=== PATIENT | female | born 1995 | race Caucasian/White ===

== ENCOUNTER 2019-01-18 04:44 | Inpatient (IN) | payer OTHER, SELFPAY ==
[2019-01-17 22:43] LABS: ROM Internal Control Test YES-OK TO RESULT pt. (Internal QC); ROM Patient Test Negative (Negative); Record Kit Lot#, ROM+ J8255
[2019-01-18 01:17] VITALS: BMI 34.0
[2019-01-18] MEDS: Nalbuphine 10 MG/ML Ampul IV (01:52)
[2019-01-18 04:43] LABS: ROM Internal Control Test YES-OK TO RESULT pt. (Internal QC); ROM Patient Test POSITIVE (Negative); Record Kit Lot#, ROM+ J8255
[2019-01-18] MEDS: Lactated Ringers 500 ML 999 ML IV ×3 (05:00→17:45)
[2019-01-18 05:35] LABS: Absolute Neutrophil Count 10.9 X10^3/uL (2.0-7.7); Basophil# 0.03 X10^3/uL; Basophil% 0.2 % (0-1); Eosinophil# 0.02 X10^3/uL; Eosinophils% 0.2 % (0-5); Hematocrit 38.5 % (37-47); Hemoglobin 12.6 g/dL (12.0-15.0); Lymphocyte % 11.3 % (19-41); Mean Corp Hgb Conc 32.7 g/dL (32-36); Mean Corpuscular Hgb 30.1 pg (27.0-32.0); Mean Corpuscular Volume 91.9 fL (81-99); Mean Platelet Vol. 11.3 fl (6.2-12.0); Monocyte# 0.67 X10^3/uL; Monocyte% 5.1 % (0-10); NRBC Flagged by Analyzer 0 % (0-5); Neutrophil # 10.94 X10^3/uL (2.7-7.7); Neutrophil % 82.4 % (47-70); Platelet Count 261 K/mm3 (150-450); RBC Distribution Width CV 15.9 % (11.6-14.6); RBC Distribution Width SD 53.3 fl (35.1-43.9); Red Blood Count 4.19 M/mm3 (4.2-5.4); White Blood Count 13.3 K/mm3 (4.4-11.0)
[2019-01-18] MEDS: Lactated Ringers 1,000 ML 200 ML IV ×3 (06:15→16:12)
[2019-01-18] MEDS: fentaNYL-bupivacaine (epidural) 100 ML BAG EPIDURAL ×2 (07:21→11:31)
[2019-01-18] MEDS: Oxytocin 30 units/NS 500 ml 30 UNITS/500 ML IV.SOLN IV (08:17)
--- NOTE | 2019-01-18 12:31 | PCM.HP.OB ---
History Date of Admission: 01/18/19 Final BENJI: 01/12/19 Gestational age: 40 Weeks and 6 Days History of this : This is a 23 year-old, G [], P [], at 40 weeks gestational age. Allergies amoxicillin Allergy (Verified 01/17/19 22:10) Unknown Home Medications: Home Medications Prenatabs FA 1 tab PO DAILY 01/18/19 Smoking Status: Never smoker Number of Fetus(es): 1 NST - FHR Rate Baby A Baseline: 120 Variability:: Moderate Accelerations:: 15 x 15 Decelerations:: None NST Reactive:: Yes Uterine Activity:: Q2-3 minutes History Past Pregnancies: Past Pregnancies Delivery Date Name GA/Weeks Outcome Route Weight Gender Labor Length Anesthesia Delivery Location Provider FOB Labs: See [facility] H[facility]P Physical Exam General: Alert, Oriented x3 Abdomen: Soft, Non Tender, Non-Distended, Gravid Neurological: Cranial nerves II-XII grossly intact Estimated gestational size: Appropriate for gestational size Cervix Dilation (cm): 3 - AROM clear fluid Station: -2 Effacement (%): 90 Assessment/Plan This is a 23 year-old, G1, P0, at 40&6 weeks gestational age. Admit to L&D Augmentation with pitocin GBS negative EFW less than 4500g, patient with adequate pelvis Pain - epidural Routine care
[2019-01-18] MEDS: Oxytocin 30 units/NS 500 ml 30 UNITS/500 ML IV.SOLN 334 UNITS IV (19:29)
--- NOTE | 2019-01-18 19:48 | PCM.OPRPT ---
Vaginal Delivery Maternal Presentation: Active Labor, Spontaneous Rupture of Membranes Method of Induction: Pitocin - augmentation Amniotic Membrane Rupture Type: Spontaneous at home Amniotic Fluid Description: Clear - with terminal meconium Final BENJI: 01/12/19 Gestational age: 40 Weeks and 6 Days Date of Procedure: 01/18/19 Pre-Operative Diagnosis: Labor Post-Operative Diagnosis: Labor Surgery/ Procedure Performed: Spontaneous Vaginal Delivery Type of Anesthesia: Epidural Description of Procedure: Called to room when patient C/C/+3. She was prepped & draped in stirrups. She pushed to deliver head. head gently guided to allow delivery of anterior and posterior shoulders. No excess traction placed on head. Body delivered and infant placed on maternal abdomen. 3VC clamped and cut. taken to warmer with pediatric team present. Placenta delivered with gentle traction. Good uterine tone obtained. Presentation: LIZZETH Placental Delivery Description: Expressed Placenta Disposition: [facility] Cord Vessel Description: 3 Vessels Cord Entanglement: None Estimated Blood Loss: 300ml Infant A gender: Male - Jaxton (1 minute): 4 (5 minute): 8 Episiotomy Description: None Laceration: 1st degree - left vaginal - repaired with 3-0 vicryl Medications given after delivery: IV Pitocin Complications: None
[2019-01-18] MEDS: Methylergonovine 0.2 MG/ML Ampul IM (20:54)
[2019-01-18] MEDS: Ibuprofen 600 MG Tablet PO (21:10)
[2019-01-18] MEDS: Acetaminophen 500 MG Tablet 1000 MG PO (22:14)
[2019-01-18] MEDS: 0.9% Saline Lock 10 ML Syringe IV (22:14)
[2019-01-18 23:51] VITALS: BP 108/68; PULSE 79; RESP 16; TEMP 36.6
[2019-01-19 05:08] VITALS: BP 99/60; PULSE 84; RESP 16; TEMP 36.3
[2019-01-19] MEDS: Ibuprofen 600 MG Tablet PO ×2 (05:14→18:01)
--- NOTE | 2019-01-19 08:49 | PCM.PN.OB ---
Subjective: Pain well controlled, just passed 2 moderate clots. Average lochia before - Physical Exam General: Alert, Cooperative, No apparent distress HEENT: Normocephalic Abdomen: Soft, Non Tender, Distended - moderately Extremities: Edema - 1+ Psych/Mental Status: Normal Affect, Appropriate Vital Signs Temp Pulse Resp BP 97.4 F L 84 16 99/60 01/19/19 05:08 01/19/19 05:08 01/19/19 05:08 01/19/19 05:08 Oxygen Delivery Method Room Air Weight: 84.368 kg Body Mass Index (BMI) 34.0 Intake and Output for Last 24 Hours 01/17/19 01/18/19 01/19/19 23:59 23:59 23:59 Intake Total 6444.88 / 6444.88 500 / 500 Output Total 2400 / 2400 450 / 450 Balance 4044.88 / 4044.88 50 / 50 Medical Necessity - Tobacco Use Smoking Status: Never smoker Assessment/Plan PPD#1 s/p doing well fundus firm after passing clots, monitor bleeding working on likely home tomorrow
[2019-01-19 09:00] VITALS: BP 103/65; PULSE 72; RESP 18; TEMP 36.9
[2019-01-19] MEDS: oxyCODONE 5 MG Tablet PO ×2 (09:38→19:36)
--- NOTE | 2019-01-19 10:10 | NURSING ---
Pt passed 2 large clots, approx. 150cc in measuring cup. Dr. Murrieta here and aware of clots. We will continue to monitor.
[2019-01-19 11:50] VITALS: BP 108/65; PULSE 89; RESP 16; TEMP 36.6
[2019-01-19] MEDS: Acetaminophen 500 MG Tablet 1000 MG PO (15:40)
[2019-01-19 15:49] VITALS: BP 116/77; PULSE 88; RESP 16; TEMP 36.4
[2019-01-19 21:10] VITALS: PULSE 86; RESP 16; TEMP 36.8; O2SAT 97
[2019-01-20 02:10] VITALS: BP 113/74; PULSE 78; RESP 16; TEMP 36.8
[2019-01-20] MEDS: oxyCODONE 5 MG Tablet PO ×2 (02:15→10:45)
[2019-01-20 09:33] VITALS: BP 109/69; PULSE 93; RESP 16; TEMP 36.8; O2SAT 98
[2019-01-20] MEDS: Ibuprofen 600 MG Tablet PO (09:33)
[2019-01-20] MEDS: Senna/Docusate Sodium 1 Tablet PO (09:33)
--- NOTE | 2019-01-20 09:45 | PCM.PN.OB ---
Subjective: Pain well controlled, average lochia. - Physical Exam General: Alert, Cooperative Vital Signs Temp Pulse Resp BP Pulse Ox 98.3 F 93 16 109/69 98 01/20/19 09:33 01/20/19 09:33 01/20/19 09:33 01/20/19 09:33 01/20/19 09:33 Oxygen Delivery Method Room Air Weight: 84.368 kg Body Mass Index (BMI) 34.0 Intake and Output for Last 24 Hours 01/18/19 01/19/19 01/20/19 23:59 23:59 23:59 Intake Total 6444.88 / 6444.88 500 / 500 Output Total 2400 / 2400 1000 / 1000 Balance 4044.88 / 4044.88 -500 / -500 Medical Necessity - Tobacco Use Smoking Status: Never smoker Assessment/Plan PPD#2 doing well is doing well ready for d/c
--- NOTE | 2019-01-20 10:40 | DCINST_ITS ---
Discharge Diet: No Restrictions Discharge Activity: Return to Normal Activity, May not drive while taking narcotic pain medications., May Shower May resume sexual activity in: 4-6 weeks Additional Activity Instructions:: Nothing in the vagina for 4-6 weeks. You may return to work/school in 6 weeks. Call your doctor if your incision/area has: Continuous Slow Oozing, Sudden Increased Bleeding, Increased Pain/ Swelling, Increased Redness, Foul Smelling Discharge Additional Instructions: If you experience any of the following, contact your healthcare provider. * Bleeding that soaks a pad every hour for 2 hours * Fever 100.4 or higher * Unrelieved incision or abdominal pain * Swelling, redness, discharge or bleeding from your incision or episiotomy site * Your incision begins to separate * Problems urinating (including inability to urinate or burning while urinating). * Visual changes * Severe headache * Flu-like symptoms * Pain or redness in one of both of your breasts * Pain, warmth, tenderness or swelling in your legs, especially the calf area * Frequent nausea and vomiting * Symptoms of depression or anxiety If you experience any of the following, call 911 or go to the nearest Emergency Room. * Chest pain * Problems breathing * Seizure activity * Partial or complete paralysis of a body part, slurred speech, weakness or drooping of the face, or a sudden inability to walk or hold your balance Allergies/Adverse Reactions: Allergies amoxicillin Allergy (Verified 01/17/19 22:10) Unknown Medications to take at Discharge Prenatabs FA 1 tab PO DAILY 01/18/19 Ibuprofen [Motrin] 600 mg PO Q6H PRN #60 tab 01/20/19 The following prescriptions were given: Ibuprofen [Motrin] 600 mg PO Q6H PRN #60 tab PRN Reason: Pain Transmission Status: Received by [facility]/pharmacy #[id number] Please Follow Up With: Shine Neal - [phone] When: Call to make an appointment with your provider's office in 1-2 and 6 weeks or as needed Primary Care Physician: Care Physician,No Primary [Primary Care Provider] - Test Results: Test results from this visit will be discussed in further detail at your follow- up appointment, if applicable.
--- NOTE | 2019-01-20 10:40 | PCM.DCVAG ---
Discharge Diet: No Restrictions Discharge Activity: Return to Normal Activity, May not drive while taking narcotic pain medications., May Shower May resume sexual activity in: 4-6 weeks Additional Activity Instructions:: Nothing in the vagina for 4-6 weeks. You may return to work/school in 6 weeks. Call your doctor if your incision/area has: Continuous Slow Oozing, Sudden Increased Bleeding, Increased Pain/ Swelling, Increased Redness, Foul Smelling Discharge Additional Instructions: If you experience any of the following, contact your healthcare provider. Bleeding that soaks a pad every hour for 2 hours Fever 100.4 or higher Unrelieved incision or abdominal pain Swelling, redness, discharge or bleeding from your incision or episiotomy site Your incision begins to separate Problems urinating (including inability to urinate or burning while urinating). Visual changes Severe headache Flu-like symptoms Pain or redness in one of both of your breasts Pain, warmth, tenderness or swelling in your legs, especially the calf area Frequent nausea and vomiting Symptoms of depression or anxiety If you experience any of the following, call 911 or go to the nearest Emergency Room. Chest pain Problems breathing Seizure activity Partial or complete paralysis of a body part, slurred speech, weakness or drooping of the face, or a sudden inability to walk or hold your balance Allergies/Adverse Reactions: Allergies amoxicillin Allergy (Verified 01/17/19 22:10) Unknown Medications to take at Discharge Prenatabs FA 1 tab PO DAILY 01/18/19 Ibuprofen [Motrin] 600 mg PO Q6H PRN #60 tab 01/20/19 The following prescriptions were given: Ibuprofen [Motrin] 600 mg PO Q6H PRN #60 tab PRN Reason: Pain Transmission Status: Received by [facility]/pharmacy #[id number] Please Follow Up With: Shine Neal - [phone] When: Call to make an appointment with your provider's office in 1-2 and 6 weeks or as needed Primary Care Physician: Care Physician,No Primary [Primary Care Provider] - Test Results: Test results from this visit will be discussed in further detail at your follow-up appointment, if applicable.
== END 2019-01-20 11:15 | disposition home or self-care (01) | DRG 806 ==
LOC: WPOUT 04:47
PROVIDERS: Obstetrics & Gynecology; Admitting Provider Obstetrics & Gynecology; Referring Provider Obstetrics & Gynecology; Visit Provider Obstetrics & Gynecology
DX: O77.0 Labor and delivery complicated by meconium in amniotic fluid (principal); O71.4 Obstetric high vaginal laceration alone; Z37.0 Single live birth; O48.0 Post-term pregnancy; Z3A.40 40 weeks gestation of pregnancy
CPT/HCPCS: 59025; 59050; 84112; 85025; 86850; 86900; 86901; 99218; J7120; A4216; G0378; J3490

== ENCOUNTER → 2020-05-05 09:40 | Outpatient (CLI) | payer OTHER, SELFPAY ==
[2020-05-05 16:29] LABS: Probe Check PASS; Specimen Processing Control PASS
== END ==
PROVIDERS: Referring Provider Obstetrics & Gynecology; Visit Provider Obstetrics & Gynecology
DX: Z03.818 Encounter for observation for suspected exposure to other biological agents ruled out (principal)
CPT/HCPCS: 87635; C9803; U0002; U0003

== ENCOUNTER 2020-05-08 07:00 | Inpatient (IN) | payer OTHER, SELFPAY ==
[2020-05-08] VITALS (56 sets, daily range): BP systolic 97–133; BP diastolic 53–83; PULSE 20–173; RESP 18; TEMP 36.1–36.9; O2SAT 83–100; BMI 33.3
[2020-05-08] MEDS: Lactated Ringers 1,000 ML 50 ML IV (07:44)
[2020-05-08] MEDS: Oxytocin 30 units/NS 500 ml 30 UNITS/500 ML IV.SOLN IV (07:51)
[2020-05-08 08:01] LABS: Absolute Lymphocyte Count 1.32 X10^3/uL (0.83-4.51); Absolute Neutrophil Count 5.4 X10^3/uL (2.0-7.7); Basophil# 0.03 X10^3/uL; Basophil% 0.4 % (0-1); Eosinophil# 0.06 X10^3/uL; Eosinophils% 0.8 % (0-5); Hematocrit 36.1 % (37-47); Hemoglobin 12.2 g/dL (12.0-15.0); Lymphocyte # 1.32 X10^3/ul (4.0); Lymphocyte % 17.6 % (19-41); Mean Corp Hgb Conc 33.8 g/dL (32-36); Mean Corpuscular Hgb 30.9 pg (27.0-32.0); Mean Corpuscular Volume 91.4 fL (81-99); Mean Platelet Vol. 10.2 fl (6.2-12.0); Monocyte# 0.62 X10^3/uL; Monocyte% 8.3 % (0-10); NRBC Flagged by Analyzer 0 % (0-5); Neutrophil % 72.2 % (47-70); Platelet Count 209 K/mm3 (150-450); RBC Distribution Width CV 14.3 % (11.6-14.6); RBC Distribution Width SD 47.8 fl (35.1-43.9); Red Blood Count 3.95 M/mm3 (4.2-5.4); White Blood Count 7.5 K/mm3 (4.4-11.0)
--- NOTE | 2020-05-08 08:44 | PCM.HP.OB ---
History Date of Admission: 05/08/20 Final BENJI: 05/15/20 Gestational age: 39 Weeks and 0 Days History of this : This is a 24 year-old, G [], P [], at 39 weeks gestational age. Medical History: Medical History (Last Updated 01/18/19 @ 12:[address] Shine Neal MD) Anxiety F41.9 Asthma J45.909 Allergies amoxicillin Allergy (Verified 01/17/19 22:10) Unknown Home Medications: Home Medications Prenatabs FA 1 tab PO DAILY 01/18/19 Ibuprofen [Motrin] 600 mg PO Q6H PRN #60 tab 01/20/19 Smoking Status: Never smoker Alcohol: None Number of Fetus(es): 1 NST - FHR Rate Baby A Baseline: 130 Variability:: Moderate Accelerations:: 15 x 15 Decelerations:: Variable Uterine Activity:: Q2-3 minutes History Past Pregnancies: Past Pregnancies Delivery Date Name GA/ Weeks Outcome Route Wt Sex Labor Length Anesthesia Delivery Location Provider FOB Labs: See [facility] prenatals Physical Exam Vitals: Vital Signs Temp Pulse BP 97.9 F 87 125/75 H 05/08/20 07:13 05/08/20 08:19 05/08/20 08:19 General: Alert, Oriented x3 Abdomen: Soft, Non Tender, Non-Distended, Gravid Extremities:: No tenderness/swelling Neurological: Cranial nerves II-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 Admit to L&D Induction - s/p AROM, on pitocin & will increase as needed (IUPC & FSE placed at time of AROM) GBS negative COVID negative Pain - epidural as desired EFW - less than 4500g, patient with adequate pelvis Routine care
[2020-05-08] MEDS: Lactated Ringers 500 ML 999 ML IV (09:25)
[2020-05-08] MEDS: fentaNYL-bupivacaine (epidural) 100 ML BAG EPIDURAL ×3 (10:23→15:39)
[2020-05-08] MEDS: Lactated Ringers 1,000 ML 200 ML IV (11:43)
[2020-05-08] MEDS: Oxytocin 30 units/NS 500 ml 30 UNITS/500 ML IV.SOLN 334 UNITS IV (16:14)
--- NOTE | 2020-05-08 16:32 | PCM.OPRPT ---
Vaginal Delivery Maternal Presentation: Elective Induction Method of Induction: Pitocin, Amniotomy Amniotic Membrane Rupture Type: Artificial Amniotic Fluid Description: Clear Final BENJI: 05/15/20 Gestational age: 39 Weeks and 0 Days Date of Procedure: 05/08/20 Pre-Operative Diagnosis: Elective induction Post-Operative Diagnosis: Same Surgery/ Procedure Performed: Spontaneous Vaginal Delivery Type of Anesthesia: Epidural Description of Procedure: Patient prepped & draped when C/C/+2. She pushed to deliver head. head gently guided to allow delivery of anterior & posterior shoulders. No excess traction placed on head. Body delivered & placed on maternal abdomen. 3VC clamped & cut in delayed fashion. Placenta delivered with gentle traction & good uterine tone obtained. Presentation: LIZZETH Placental Delivery Description: Spontaneous Placenta Disposition: [facility] Cord Vessel Description: 3 Vessels Cord Entanglement: None Estimated Blood Loss: 350ml Infant A gender: Male - Jair (1 minute): 8 (5 minute): 8 Episiotomy Description: None Laceration: 1st degree - bilateral vaginal - repaired with 3-0 vicryl Medications given after delivery: IV Pitocin Complications: None
[2020-05-08] MEDS: Ibuprofen 600 MG Tablet PO (17:50)
[2020-05-08] MEDS: Acetaminophen 500 MG Tablet 1000 MG PO (18:49)
--- NOTE | 2020-05-08 20:00 | NURSING ---
Pt up to bathroom to void x2 RN assist, tolerated well. 100ml output. Pt became lightheaded when sitting on toilet. Pt provided with juice and a cool wet cloth. Ammonia packet activated, pt condition improved. Pt ambulated back to bed with RN x3 in room. Plan to get up to BSC with next void and call for RN assistance. VSS and assessment completed.
[2020-05-08] MEDS: oxyCODONE 5 MG Tablet PO (21:50)
--- NOTE | 2020-05-08 22:17 | NURSING ---
2200 Pt c/o severe lower abdominal discomfort, able to void 100cc, states still very painful. Pt agreed to straight cath. Straight cath done for 800cc, pt states feels immediate relief, but still feels a little urge to void. Offered pt to get up to BR again or have another straight cath, pt would like another straight cath to avoid pain again. Staight cath x2 done for another 800cc and pt states feels a lot better.
[2020-05-09] VITALS (8 sets, daily range): BP systolic 110–114; BP diastolic 66–75; PULSE 71–80; RESP 14–18; TEMP 35.9–36.7; O2SAT 95–96
[2020-05-09] MEDS: Ibuprofen 600 MG Tablet PO ×2 (02:48→11:11)
--- NOTE | 2020-05-09 08:45 | PCM.PN.OB ---
Subjective: Patient seen at bedside, doing well. Patient reports good pain control. Mild lochia. voiding w/o difficulty. - Physical Exam Vitals/I&O's: Vital Signs Temp Pulse Resp BP Pulse Ox 98.1 F 80 14 114/71 95 05/09/20 07:51 05/09/20 07:51 05/09/20 07:51 05/09/20 07:51 05/09/20 03:00 Oxygen Delivery Method Room Air Weight: 82.781 kg Body Mass Index (BMI) 33.3 Intake and Output for Last 24 Hours 05/07/20 05/08/20 05/09/20 23:59 23:59 23:59 Intake Total 1658.29 / 1658.29 Output Total 2200 / 2200 800 / 800 Balance -541.71 / -541.71 -800 / -800 General: Alert, Oriented x3 Abdomen: Soft, Non Tender, Non-Distended, - - fundus firm Extremities: No Calf Tenderness Laboratory Results 05/08/20 07:45: Blood Type B POSITIVE, Antibody Screen NEGATIVE Current Medications Acetaminophen (Acetaminophen 500 Mg Tablet) 1,000 mg PO Q8H PRN PRN PRN Reason: Pain Score 1-3 Last Admin: 05/08/20 18:49 Dose: 1,000 mg Documented by: Bisacodyl (Bisacodyl 10 Mg Suppository) 10 mg RECTAL UD PRN PRN Reason: If no BM Dibucaine (Dibucaine 30 Gm Tube) 1 applic TOPICAL TID PRN PRN; Protocol PRN Reason: Discomfort Hydrocortisone (Hydrocortisone 2.5% Crm) 1 applic TOPICAL TID PRN PRN; Protocol PRN Reason: Discomfort Ibuprofen (Ibuprofen 600 Mg Tablet) 600 mg PO Q6H PRN PRN PRN Reason: Pain Score 1-3 Last Admin: 05/09/20 02:48 Dose: 600 mg Documented by: Methylergonovine Maleate (Methylergonovine 0.2 Mg/Ml Ampul) 0.2 mg IM X1 PRN PRN Reason: Excess bleeding/uterine atony Ondansetron HCl (Ondansetron 4 Mg/2 Ml Vial) 4 mg IV Q4H PRN PRN PRN Reason: Nausea Oxycodone HCl (Oxycodone 5 Mg Tablet) 5 - 10 mg PO Q4H PRN PRN PRN Reason: Pain Score 4-10 Last Admin: 05/08/20 21:50 Dose: 5 mg Documented by: Senna/Docusate Sodium (Senna/Docusate Sodium 1 Tablet) 1 - 2 tablet PO DAILY PRN PRN PRN Reason: Constipation Simethicone (Simethicone 80 Mg Tablet) 80 mg PO PCHS PRN PRN Reason: Indigestion/Stomach pain Sodium Chloride (0.9% Saline Lock 10 Ml Syringe) 5 - 15 ml IV UD PRN PRN Reason: SALINE FLUSH Medical Necessity - Tobacco Use Smoking Status: Never smoker Assessment/Plan PPD#1 , doing well routine care pain mgmt dc home
--- NOTE | 2020-05-09 08:46 | DCINST_ITS ---
Discharge Diet: No Restrictions Discharge Activity: Return to Normal Activity, May not drive while taking narcotic pain medications., May Shower May resume sexual activity in: 4-6 weeks Additional Activity Instructions:: Nothing in the vagina for 4-6 weeks. You may return to work/school in 6 weeks. Call your doctor if your incision/area has: Continuous Slow Oozing, Sudden Increased Bleeding, Increased Pain/ Swelling, Increased Redness, Foul Smelling Discharge Additional Instructions: If you experience any of the following, contact your healthcare provider. * Bleeding that soaks a pad every hour for 2 hours * Fever 100.4 or higher * Unrelieved incision or abdominal pain * Swelling, redness, discharge or bleeding from your incision or episiotomy site * Your incision begins to separate * Problems urinating (including inability to urinate or burning while urinating). * Visual changes * Severe headache * Flu-like symptoms * Pain or redness in one of both of your breasts * Pain, warmth, tenderness or swelling in your legs, especially the calf area * Frequent nausea and vomiting * Symptoms of depression or anxiety If you experience any of the following, call 911 or go to the nearest Emergency Room. * Chest pain * Problems breathing * Seizure activity * Partial or complete paralysis of a body part, slurred speech, weakness or drooping of the face, or a sudden inability to walk or hold your balance Allergies/Adverse Reactions: Allergies amoxicillin Allergy (Verified 01/17/19 22:10) Unknown Medications to take at Discharge Prenatabs FA 1 tab PO DAILY 01/18/19 Ibuprofen [Motrin] 600 mg PO Q6H PRN PRN #30 tab 05/09/20 The following prescriptions were given: Ibuprofen [Motrin] 600 mg PO Q6H PRN PRN #30 tab PRN Reason: Pain Score 1-3 Transmission Status: Pending to [facility]/pharmacy #[id number] Please Follow Up With: Shine Neal MD When: Call to make an appointment with your doctor in 1-2 weeks (virtual ok) and then 6 weeks. Primary Care Physician: Care Physician,No Primary [Primary Care Provider] - Test Results: Test results from this visit will be discussed in further detail at your follow- up appointment, if applicable.
[2020-05-09] MEDS: Acetaminophen 500 MG Tablet 1000 MG PO (11:11)
== END 2020-05-09 18:05 | disposition home or self-care (01) | DRG 807 ==
PROVIDERS: Obstetrics & Gynecology; Admitting Provider Obstetrics & Gynecology; Referring Provider Obstetrics & Gynecology; Visit Provider Obstetrics & Gynecology
DX: O80 Encounter for full-term uncomplicated delivery (principal); Z37.0 Single live birth; Z3A.39 39 weeks gestation of pregnancy
CPT/HCPCS: 59050; 85025; 86850; 86900; 86901; 99218; J7120; G0378

== ENCOUNTER 2024-11-07 14:35 | Emergency (ER) | payer OTHER, SELFPAY ==
[2024-11-07] VITALS (8 sets, daily range): BP systolic 121–129; BP diastolic 89–100; PULSE 59–81; RESP 6–16; TEMP 35.9–36.6; O2SAT 98–100; BMI 29.2
--- NOTE | 2024-11-07 14:53 | EDS_ITS ---
HPI History of Present Illness Chief Complaint: Chest Pain Narrative Narrative: Patient is a 29-year-old female with past medical history anxiety, asthma who presented to the emergency department with a chief complaint of chest pain. States that around 4 AM this morning she woke up with chest discomfort and states that this has been constant nothing makes this better or worse. She states that she went to another hospital at [facility] she had a workup including a D-dimer that was elevated then underwent a CAT scan of her chest that was noted to be normal. She states that she has continued pain which prompted her to come to the emergency department here at [place] to be further evaluated. When inquiring about any cardiac enzyme she states that she does not believe that this was done. Patient denies any control use denies any recent travels denies any history of blood clots [facility] Medical History RLQ abdominal pain Asthma Anxiety Home Medications ?Medication ?Instructions ?Recorded ?Last Taken ?Type Prenatabs FA 1 tab PO DAILY Check with pr imary 01/18/19 05/07/20 History doctor ibuprofen 600 mg tablet 600 mg PO Q6H PRN PRN Pain S core 05/09/20 Unknown Rx 1-3 #30 tabs buspirone 10 mg tablet 10 mg PO BID 07/01/22 Unknow n History escitalopram oxalate 10 mg tablet 10 mg PO DAILY 07/01 Unknown History famotidine 20 mg tablet 20 mg PO DAILY 07/01/22 Unkn own History ondansetron HCl 4 mg tablet 4 mg PO Q8H 07/01/22 Unkno wn History pantoprazole 40 mg tablet,delayed 40 mg PO DAILY 07/01 Unknown History release sucralfate 100 mg/mL oral 10 ml PO BID 07/01/22 Unknow n History suspension Allergy/AdvReac Type Severity Reaction Status Date / Time amoxicillin Allergy Unknown Verified 11/07/24 14:36 Family History Mother Heart disease Social History Smoking Status: Never smoker alcohol intake: never ROS ROS ED ROS Narrative Constitutional: Complains of headache denies lightheaded, dizziness Eyes: Denies double vision Cardiovascular: Complains of chest pain as noted above denies palpitations Respiratory: Complains of shortness of breath denies coughing wheezing Abdomen: Denies abdominal pain nausea vomit diarrhea : Denies any urinary symptoms Neurological: Denies any numbness, weakness, tingling Musculoskeletal: States that her chest pain radiates to her back Skin: Denies any rashes or lesions EXAM Physical Exam Narrative Exam Narrative: General: Patient was lying in bed was tearful but not appear to be in acute distress Head: Atraumatic, normocephalic Eyes: PERRL bilaterally, EOMI blood, no conjunctival injection noted Neck: Soft, supple, trachea midline Cardiovascular: Regular rate and rhythm Respiratory: Clear to auscultation bilaterally Abdomen: Soft, nondistended, nontender to palpation Extremities: +5/5 strength noted in the bilateral upper and lower extremities, radial pulses +2/4 in the bilateral extremities Neurological: Patient following commands knew that she was at [facility] year is 2024. NIH is 0 GCS 15 Skin: Warm, dry, tact no rashes or lesions noted Const Vital Signs: 11/07/24 14:36 11/07/24 14:54 11/07/24 14:56 Temperature 96.7 F L Temperature Source Temporal Pulse Rate 81 Respiratory Rate 16 Respiratory Effort Normal Non-Labored Blood Pressure 124/100 H Blood Pressure Mean 108 Pulse Ox 99 Oxygen Delivery Method Room Air Room Air 11/07/24 15:45 11/07/24 16:00 11/07/24 16:30 Temperature Temperature Source Pulse Rate 68 75 62 Respiratory Rate 14 12 14 Respiratory Effort Blood Pressure 124/93 H 127/90 H 124/89 H Blood Pressure Mean 104 103 100 Pulse Ox 98 100 99 Oxygen Delivery Method 11/07/24 17:00 Temperature Temperature Source Pulse Rate 67 Respiratory Rate 15 Respiratory Effort Blood Pressure 129/92 H Blood Pressure Mean 103 Pulse Ox 98 Oxygen Delivery Method MDM MDM MDM Narrative Medical decision making narrative: Patient is a 29-year-old female who presented to the emergency department chief complaint of chest pain. On the differential diagnose includes but not limited to anxiety, panic attack, ACS, spontaneous coronary artery dissection, migraine headache. Once workup is obtained reviewed she will be reevaluated. Patient be given IV fluids Reglan and a gram of Tylenol. Right patient's a CBC was reviewed showed no evidence leukocytosis white blood count 5.7, hemoglobin 14.4, platelet count of 205. Patient sodium was 135, potassium normal 4.2, creatinine was 0 .64. Patient troponin was less than 6, EKG reviewed showed sinus rhythm with a rate of 75 bpm. Patient's TSH normal at 1.9 and test is negative. Patient chest x-ray reviewed by myself and official read by radiology is pending. No acute cardiopulmonary processes were identified. Patient's delta troponin is pending this to be signed out to oncoming provider to follow-up on and make ultimate disposition see addendum for further details. Lab Data Labs: Laboratory Results - last 24 hr 11/07/24 15:00 WBC 5.7 RBC 4.53 Hgb 14.4 Hct 40.8 MCV 90.1 MCH 31.8 MCHC 35.3 RDW Std Deviation 39.5 RDW Coeff of Saige 12.0 Plt Count 205 MPV 10.7 Immature Gran % (Auto) 0.400 Neut % (Auto) 70.9 H Lymph % (Auto) 19.5 [place] % (Auto) 8.5 Eos % (Auto) 0.2 Baso % (Auto) 0.5 Absolute Neuts (auto) 4.0 Absolute Lymphs (auto) 1.11 Nucleated RBC % 0 Sodium 135 Potassium 4.2 Chloride 99 Carbon Dioxide 23.0 Anion Gap 13 BUN 8 Creatinine 0.64 L Estim Creat Clear Calc 119.90 Est GFR (MDRD) Non-Af 122 BUN/Creatinine Ratio 13.0 Glucose 96 Calcium 9.1 Troponin T High Sens < 6 TSH 1.900 Serum , Qual NEGATIVE Discharge Plan Triage Chief Complaint: Chest Pain ED Provider: Rj Jo Dx/Rx/DC Orders Clinical Impression: Chest pain Prescriptions: No Action buspirone 10 mg tablet 10 mg PO BID escitalopram oxalate 10 mg tablet 10 mg PO DAILY famotidine 20 mg tablet 20 mg PO DAILY ondansetron HCl 4 mg tablet 4 mg PO Q8H pantoprazole 40 mg tablet,delayed release (DR/EC) 40 mg PO DAILY sucralfate 100 mg/mL suspension 10 ml PO BID Prenatabs FA 1 tab PO DAILY ibuprofen 600 MG tablet 600 mg PO Q6H PRN PRN (Reason: Pain Score 1-3) Qty: 30 0RF Primary Care Provider: Umberto Allison Referrals: Care Physician,No Primary [Non-Staff] - Print Language: Ukrainian
[2024-11-07 15:08] LABS: Hematocrit 40.8 % (37-47); Hemoglobin 14.4 g/dL (12.0-15.0); Immature Granulocytes Count 0.020 X10^3/uL (0.0-0.0); Mean Corp Hgb Conc 35.3 g/dL (32-36); Mean Corpuscular Volume 90.1 fL (81-99); Mean Platelet Vol. 10.7 fl (6.2-12.0); NRBC Flagged by Analyzer 0 % (0-5); Platelet Count 205 K/mm3 (150-450); RBC Distribution Width CV 12.0 % (11.6-14.6); RBC Distribution Width SD 39.5 fl (35.1-43.9); Red Blood Count 4.53 M/mm3 (4.2-5.4); White Blood Count 5.7 K/mm3 (4.4-11.0)
[2024-11-07] MEDS: 0.9% Normal Saline (1000mL) 1,000 ML 999 ML IV (15:13)
--- NOTE | 2024-11-07 15:15 | RAD_ITS ---
PROCEDURE: CHEST PA AND LATERAL 11/07/2024 REASON FOR EXAM: CHEST PAIN TECHNIQUE: CHEST PA AND LATERAL COMPARISON: None. FINDINGS: The heart is normal in size. The lungs are clear. No acute osseous abnormalities. RAD/Chest PA and Lateral IMPRESSION: No acute cardiopulmonary abnormalities. Reading Location: [place] [id number]
[2024-11-07 16:06] LABS: Internal QC Validated? YES +Cl - CLEAR BKGD; Pregnancy, Serum, hCG Quali. NEGATIVE Negative; Record Kit Lot#, Serum Preg. 947241
[2024-11-07 16:25] LABS: Troponin T High Sensitivity < 6 ng/L (<=14)
[2024-11-07 16:26] LABS: Anion Gap 13 (5-15); BUN 8 mg/dL (4-19); BUN/Creat Ratio 13.0 RATIO (10-20); Calcium,Total 9.1 mg/dL (7.6-11.0); Carbon Dioxide 23.0 mmol/L (21.0-32.0); Chloride 99 mmol/L (98-108); Estimated Creatinine Clearance 119.90 ml/min (50-250); Glucose 96 mg/dL (70-99); Potassium 4.2 mmol/L (3.3-5.1)
[2024-11-07 17:57] LABS: Troponin T High Sens 2 HR < 6 ng/L (<=14)
== END 2024-11-07 18:40 | disposition home or self-care (01) ==
LOC: ED 15:36
PROVIDERS: Emergency Provider Emergency Medicine; PCP Family Medicine; Referring Provider Emergency Medicine; Visit Provider Emergency Medicine
DX: R07.9 Chest pain, unspecified (principal); F41.9 Anxiety disorder, unspecified; J45.909 Unspecified asthma, uncomplicated
CPT/HCPCS: 71046; 80048; 84443; 84484; 84703; 85025; 93005; 96360; 96361; 99284; A4216

== ENCOUNTER 2025-04-21 12:00 | Emergency (ER) | payer OTHER, SELFPAY ==
[2025-04-21] VITALS (9 sets, daily range): BP systolic 98–129; BP diastolic 76–98; PULSE 62–148; RESP 11–23; TEMP 36.1–36.8; O2SAT 100; BMI 29.1
--- NOTE | 2025-04-21 12:17 | CT_ITS ---
PROCEDURE: CTA CHEST W/WO CONTRAST 04/21/2025 REASON FOR EXAM: RECENT PFO CLOSURE, PALPITATIONS TECHNIQUE: Procedure Code: CTCTACHWW Modality: CT Procedure: CTA CHEST W/WO CONTRAST Multiplanar Sagittal and Coronal images were obtained. CONTRAST: Isovue 370 VOLUME: 75 mL One or more dose reduction techniques were used (e.g., Automated exposure control, adjustment of the mA and/or kV according to patient size, use of iterative reconstruction technique). RADIATION DOSE SUMMARY: CTDlvol: 10.91 mGy DLP: 357.5 mGycm COMPARISON: None # of known CTs in the past 12 months: None. # of known Cardiac Nuclear Medicine Studies in the past 12 months: None. FINDINGS: Thoracic Aorta: No aneurysm. Heart: No cardiomegaly. No atherosclerotic calcifications of the coronary arteries. Pulmonary Vessels: No evidence of pulmonary embolism. Hardware: None Lymph nodes: No lymphadenopathy. Lungs and Airways: Clear. Pleura: No pleural effusion or pneumothorax. Upper Abdomen: No acute abdominopelvic abnormalities. Bones: No acute bony abnormalities. CT/CTA Chest W/WO Contrast IMPRESSION: No evidence of pulmonary embolism. Reading Location: [facility]
[2025-04-21] MEDS: 0.9% Normal Saline (1000mL) 1,000 ML 1000 ML IV (12:26)
[2025-04-21 12:29] LABS: Hematocrit 38.6 % (37-47); Hemoglobin 13.2 g/dL (12.0-15.0); Immature Granulocytes Count 0.030 X10^3/uL (0.0-0.0); Mean Corp Hgb Conc 34.2 g/dL (32-36); Mean Corpuscular Volume 91.9 fL (81-99); Mean Platelet Vol. 10.0 fl (6.2-12.0); NRBC Flagged by Analyzer 0 % (0-5); Platelet Count 344 K/mm3 (150-450); RBC Distribution Width CV 11.9 % (11.6-14.6); RBC Distribution Width SD 40.4 fl (35.1-43.9); Red Blood Count 4.20 M/mm3 (4.2-5.4); White Blood Count 9.0 K/mm3 (4.4-11.0)
--- NOTE | 2025-04-21 12:30 | EX.ED.DYSGE1 ---
HPI History of Present Illness Chief Complaint: Palpitations Narrative Narrative: Chief complaint and HPI: 29-year-old female with past medical history of CVA secondary to a PFO, GERD, anxiety presents for evaluation of palpitations. Patient states she had her PFO closed by Dr. William at [facility] on 04/08. Patient states she is currently on aspirin and Plavix. She states the last couple days she has been having intermittent palpitations. Worse when she ambulates. Has an occasional shortness of breath associated with it. Denies chest pain. Was seen at an outlying facility for the same complaint in which she was placed on a Holter monitor. Review of systems: See HPI Medications: As listed on the chart Allergies: As listed on the chart PFSH: Per chart Vital signs: As listed on the chart. Reviewed. Physical exam: Gen: A&O x3, NAD Head: Normocephalic, atraumatic Eyes: No sclera icterus, conjunctiva clear ENT: Moist mucous membranes Neck: Trachea midline, No JVD CV: RRR, no murmurs, no peripheral edema Resp: Lungs CTA BL, no w/r/c GI: Abd soft, non-distended, non-tender, no r/r/g Musc: Full ROM, no deformity Skin: Warm, dry Neuro: Alert, oriented, grossly intact, sensation intact Psych: Cooperative, appropriate mood and affect [facility] Medical History GERD (gastroesophageal reflux disease) Frequent headaches Chest pain Dysphagia Asthma Anxiety Home Medications ?Medication ?Instructions ?Recorded ?Last Taken ?Type pantoprazole 40 mg tablet,delayed 40 mg PO DAILY 07/01/22 Unknown History release cetirizine 10 mg tablet (All Day 10 mg PO QDAY PRN 11/29/24 Unknown History Allergy (cetirizine)) diphenhydramine HCl 25 mg tablet 25 mg PO QHS PRN 11/29/24 Unknown History (Benadryl Allergy) fluoxetine 20 mg capsule 20 mg PO QDAY 11/29/24 Unknown History fluticasone propionate 50 1 spray intranasal BID 11/29/24 Unknown History mcg/actuation nasal spray,suspension trazodone 50 mg tablet 50 mg PO QHS 11/29/24 Unknown History Allergy/AdvReac Type Severity Reaction Status Date / Time doxycycline Allergy Intermediate Other Verified 04/21/25 12:02 vancomycin Allergy Intermediate Rash Verified 04/21/25 12:02 amoxicillin Allergy Unknown Verified 04/21/25 12:01 Family History (Updated 11/29/24 @ 09:08 by Cecile Frias RN) Mother Heart disease Asthma Tachycardia Father Irregular heart rate Sister Asthma Brother Asthma Uncle Myocardial infarction Surgical History Hx of wisdom tooth extraction Social History (Updated 11/29/24 @ 09:08 by Cecile Frias RN) Smoking Status: Never smoker alcohol intake: never substance use type: does not use EXAM Physical Exam Const Vital Signs: 04/21/25 12:01 04/21/25 12:28 04/21/25 13:00 Temperature 97.0 F L Temperature Source Temporal Pulse Rate 62 87 Respiratory Rate 16 23 H Respiratory Effort Normal Non-Labored Blood Pressure 129/88 H 108/80 Blood Pressure Mean 101 89 Pulse Ox 100 100 Oxygen Delivery Method Room Air 04/21/25 13:49 04/21/25 14:19 04/21/25 14:44 Temperature Temperature Source Pulse Rate 142 H 148 H 78 Respiratory Rate 18 13 Respiratory Effort Blood Pressure 112/98 H 129/97 H Blood Pressure Mean 102 107 Pulse Ox 100 100 Oxygen Delivery Method Room Air Room Air 04/21/25 15:00 04/21/25 16:00 Temperature Temperature Source Pulse Rate 64 70 Respiratory Rate 18 18 Respiratory Effort Blood Pressure 115/84 H 98/76 Blood Pressure Mean 94 83 Pulse Ox 100 100 Oxygen Delivery Method Room Air Room Air MDM MDM MDM Narrative Medical decision making narrative: 29-year-old female with past medical history of CVA secondary to a PFO, GERD, anxiety presents for evaluation of palpitations. Patient states she had her PFO closed by Dr. William at [facility] on 04/08. Patient states she is currently on aspirin and Plavix. She states the last couple days she has been having intermittent palpitations. Worse when she ambulates. Has an occasional shortness of breath associated with it. Denies chest pain. Was seen at an outlying facility for the same complaint in which she was placed on a Holter monitor. On presentation, patient no acute distress. She is intermittently bradycardic. Not on any beta-lara. Differential diagnosis includes but is not limited to arrhythmia, electrolyte abnormality, dehydration, thyroid disease, PE, complication from PFO surgery, anemia. NS bolus ordered. Laboratory workup ordered including CTA chest. CBC unremarkable. BMP unremarkable. Magnesium unremarkable. Troponin unremarkable x2. BNP unremarkable. TSH unremarkable. Serum negative. Coagulation panel unremarkable. CTA of the chest negative for PE. No acute findings. While waiting for results, patient became tachycardic in the 130s. Repeat EKG obtained. See below. Will give diltiazem and consult cardiology. Cardiology reviewed the EKGs. Agrees of the first EKG is sinus bradycardia with some PACs/P wave abnormalities. Repeat EKG suspects more atrial fibrillation and then flutter. Treat as normal and okay to be admitted to our hospital if needed. States that with PFO closures you can get atrial fibrillation. After 20 mg of IV diltiazem, patient converted to normal sinus rhythm. Heart rate 76. No acute ischemic changes. Patient's [id number] is a 3 given her previous CVA and female therefore recommendation is for anticoagulation. Will reach out to Dr. William. I spoke with the cardiac fellow from [facility]. Patient was discussed. He will need to reach out to his attending, Dr. William to discuss if I should start the patient on anticoagulation given her close PFO and what to place her on rate limiting lentz given her lower blood pressure. At this point in time, I am still waiting to hear back with the answers. Patient signed out to oncoming physician, Dr. Petit. She will wait the final recommendation and then patient will likely be discharged. EKG: Interpreted by me/EM physician: EKG shows sinus bradycardia with a heart rate of 44. Normal QTc. Patient has some unclear nonspecific abnormalities. May be throwing extra P waves. Repeat EKG shows a tachycardia with a heart rate of 126. Again no prolonged QTc. Rhythm is difficult to discern. Appears like atrial fibrillation but at times possibly flutter. Nonspecific ST changes. Impression: 1. Atrial fibrillation with RVR, converted to normal sinus rhythm 2. History of CVA with recent PFO closure Lab Data Labs: Laboratory Results - last 24 hr 04/21/25 04/21/25 12:22 14:28 WBC 9.0 RBC 4.20 Hgb 13.2 Hct 38.6 MCV 91.9 MCH 31.4 MCHC 34.2 RDW Std Deviation 40.4 RDW Coeff of Saige 11.9 Plt Count 344 MPV 10.0 Immature Gran % (Auto) 0.300 Neut % (Auto) 73.7 H Lymph % (Auto) 18.9 L Bartholomew % (Auto) 5.9 Eos % (Auto) 0.9 Baso % (Auto) 0.3 Absolute Neuts (auto) 6.6 Absolute Lymphs (auto) 1.70 Nucleated RBC % 0 PT 13.4 INR 1.0 APTT 31.4 Sodium 139 Potassium 3.8 Chloride 101 Carbon Dioxide 24.2 Anion Gap 14 BUN 6 Creatinine 0.68 L Estim Creat Clear Calc 112.57 Est GFR (MDRD) Non-Af 120 BUN/Creatinine Ratio 8.4 L Glucose 86 Calcium 9.1 Magnesium 2.0 Troponin T High Sens < 6 Troponin T Hi Sens 2 Hr < 6 NT pro BNP II 319 TSH 1.790 Serum , Qual NEGATIVE Radiography Diagnostic Testing: Clinical Impression(s) from Imaging Studies Chest CTA 04/21/25 12:17 IMPRESSION: No evidence of pulmonary embolism. Reading Location: [facility] Discharge Plan Triage Chief Complaint: Palpitations ED Provider: Boris Briggs Dx/Rx/DC Orders Prescriptions: No Action pantoprazole 40 mg tablet,delayed release (DR/EC) 40 mg PO DAILY trazodone 50 mg tablet 50 mg PO QHS cetirizine [All Day Allergy (cetirizine)] 10 mg tablet 10 mg PO QDAY PRN fluticasone propionate 50 mcg/actuation spray,suspension 1 spray intranasal BID fluoxetine 20 mg capsule 20 mg PO QDAY diphenhydramine HCl [Benadryl Allergy] 25 mg tablet 25 mg PO QHS PRN Primary Care Provider: Cecile Parr Referrals: Umberto Allison MD [[facility]] Print Language: Romansh
[2025-04-21 12:37] LABS: Prothrombin Time (Protime)PT. 13.4 SECONDS (11.7-14.9)
[2025-04-21 12:38] LABS: Partial Thromboplast Time 31.4 Seconds (24.1-36.2)
--- OUTSIDE RECORDS SUMMARY | 2025-04-21 12:38 | XMS RPT_ITS | CCD ---
Author Organization [facility] Care Team Providers Care Piping Designer Name Role Phone No, Physician Primary Care Provider Unavailabl e GALA, ADRIANE MEENU Admitting Unavailable GALA ADRIANE MEENU Referring Unavailable NO, PHYSICIAN Primary Care Unavailable Nieves, Physician Primary Care Provider UnavailBri Wu MD Primary Care Provider [phone] Munir Allison MD Primary Care Provider Munir Allison MD Primary Care Provider [phone] Bri Sánchez MD Primary Care Provider Bri Sánchez MD Unavailable TEVIN WALDEN Attending Unavailable GIO RICHARDSON Referring Unavaila ble GONZALO, BRI Primary Care Unavailable GIO RICHARDSON Admitting Unavaila ble KULDEEP KEENE Attending Unavailable GIO RICHARDSON Admitting Unavaila ble GONZALO, BRI Primary Care Unavailable GIO RICHARDSON Referring Unavaila ble GIO RICHARDSON Admitting Unavaila ble GONZALO, BRI Primary Care Unavailable KULDEEP KEENE Attending Unavailable GIO RICHRADSON Referring Unavaila ble GIO RICHARDSON Attending Unavaila ble GONZALO, BRI Primary Care Unavailable GIO RICHARDSON Admitting Unavaila ble GIO RICHARDSON Referring Unavaila ble GONZALO, BRI Primary Care Unavailable MANISHA GODINEZ Attending Unavailab le GIO RICHARDSON Admitting Unavaila ble Munir Allison MD Primary Care Provider Munir Allison MD Primary Care Provider BRI SÁNCHEZ Primary Care Unavailable GIO RICHARDSON Attending Unavaila ble GONZALO, BRI Primary Care Unavailable HIDDENITEGIO Attending Unavaila ble RICHARDSONGIO DE LA VEGA Admitting Unavaila ble GONZALO, BRI Primary Care Unavailable RICHARDSONGIO DE LA VEGA Referring Unavaila ble GONZALO, BRI Primary Care Unavailable RICHARDSONGIO DE LA VEGA Attending Unavaila ble HIDDENITEGIO Attending Unavaila ble GONZALO, BRI Primary Care Unavailable HIDDENITEGIO Attending Unavaila ble GONZALO, BRI Primary Care Unavailable GONZALO, BRI Primary Care Unavailable HIDDENITEGIO Attending Unavaila ble GONZALO, BRI Primary Care Unavailable HIDDENITEGIO Referring Unavaila ble HIDDENITE, GIO PENDLETON Admitting Unavaila ble GONZALO, BRI Primary Care Unavailable HIDDENITE, GIO PENDLETON Attending Unavaila ble GONZALO, BRI Primary Care Unavailable HIDDENITE, GIO PENDLETON Attending Unavaila ble HIDDENITE, GIO PENDLETON Attending Unavaila ble GONZALO, BRI Primary Care Unavailable GONZALO, BRI Primary Care Unavailable HIDDENITEGIO Referring Unavaila ble HIDDENITEGIO Admitting Unavaila ble GONZALO, BRI Primary Care Unavailable HIDDENITEGIO Attending Unavaila ble Unavailable Primary Care Provider Unavailabl e Jessi HUNTER TRAPPER.Kenzie MOSHER Unavailable Greg HUNTER TRAPPER.CATERING ADMINISTRATIVE ASSISTANT, Jose F Unavailable Jessi HUNTER TRAPPER.Kenzie MOSHER Unavailable Dr. Rj Jo DO Referring Provider Dr. Rj Jo DO Emergency Provider Munir Allison MD Primary Care Provider Unavai lable Karolyn HUNTER TRAPPER-CITY LIBRARY DIRECTOR, Cecile Primary Care Provide r Suppan HUNTER TRAPPER.CATERING ADMINISTRATIVE ASSISTANTCecile A Primary Care Provi emma Rj Jo Referring Unavailable Rj Jo Attending Unavailable Munir Olivares Primary Care Unavailable SUPPAN, CECILE Primary Care Unavailable SUPPAN, CECILE Primary Care Unavailable SUPPAN, CECILE A Primary Care Unavailable JUSTO MO Attending Unavailable Adriane Gonzales MD Unavailable Munir Allison MD Primary Care Provider Greg ROJASJose F Unavailable PROVIDER, UNKNOWN Referring Unavailable SUPPAN, CECILE A Primary Care Unavailable APOLONIA DAVIS Attending Unavaila KENZIE Yadav Primary Care Unavailabl e NO, PHYSICIAN Primary Care Unavailable OCHOA ROYAL Attending Unava ilable LOLLY ARRINGTON Attending Unavailable NO, PHYSICIAN Primary Care Unavailable NO, PHYSICIAN Primary Care Unavailable OCHOA ROYAL Attending Unava MUNIR Colón Primary Care Unavailable MUNIR ALLISON Referring Unavailable FUCHS, MARSHALL Referring Unavailable SUPPAN, CECILE A Primary Care Unavailable FUCHS, MARSHALL Referring Unavailable SUPPAN, CEICLE A Primary Care Unavailable SUPPAN, CECILE A Primary Care Unavailable CHELSEA, MARSHALL Referring Unavailable KENZIE BOWEN Attending Unavailable MUNIR ALLISON Primary Care Unavailable SUPPAN, CECILE A Primary Care Unavailable SUPPAN, CECILE A Attending Unavailable MUNIR ALLISON Primary Care Unavailable MUNIR ALLISON Attending Unavailable MUNIR ALLISON Primary Care Unavailable LUIS LOVETT Referring Unavailable SUPPAN, CECILE A Primary Care Unavailable ADRIANE GONZALES Referring Unavailable SUPPAN, CECILE A Primary Care Unavailable FUCHS, MARSHALL Referring Unavailable SUPPAN, CECILE A Primary Care Unavailable SEOL, HYEYOUNG Referring Unavailable SUPPAN, CECILE A Primary Care Unavailable MUNIR ALLISON Referring Unavailable SUPPAN, CECILE A Primary Care Unavailable SUPPAN, CECILE A Primary Care Unavailable FUCHS, MARSHALL Attending Unavailable FUCHS, MARSHALL Referring Unavailable FUCHS, MARSHALL Referring Unavailable SUPPAN, CECILE A Primary Care Unavailable FUCHS, MARSHALL Referring Unavailable SUPPAN, CECILE A Primary Care Unavailable ARA COX Attending Unavailable MARK ZAYAS Referring Unavailable SUPPAN, CECILE A Primary Care Unavailable SUPPAN, CECILE A Attending Unavailable MUNIR ALLISON Primary Care Unavailable SUPPAN, CECILE A Primary Care Unavailable SUPPAN, CECILE A Referring Unavailable SEOL, HYEYOUNG Referring Unavailable SUPPAN, CECILE A Primary Care Unavailable COX, ARA K Referring Unavailable SUPPAN, CECILE A Primary Care Unavailable KENZIE BOWEN Referring Unavailable MUNIR ALLISON Primary Care Unavailable LUIS LOVETT Attending Unavailable NATALIO WATKINS Attending Unavailable COX, ARA K Referring Unavailable SUPPAN, CECILE A Primary Care Unavailable SUPPAN, CECILE A Referring Unavailable MUNIR ALLISON Primary Care Unavailable KENZIE BOWEN Referring Unavailable MUNIR ALLISON Primary Care Unavailable COX, ARA K Referring Unavailable SEOL, HYEYOUNG Attending Unavailable SUPPAN, CECILE A Primary Care Unavailable SEOL, HYEYOUNG Referring Unavailable SUPPAN, CECILE A Primary Care Unavailable MUNIR ALLISON Referring Unavailable SUPPAN, CECILE A Primary Care Unavailable ADRIANE GONZALES Attending Unavailable SEOL, HYEYOUNG Referring Unavailable SUPPAN, CECILE A Primary Care Unavailable SUPPAN, CECILE A Attending Unavailable SUPPAN, CECILE A Primary Care Unavailable Allergies Allergy Classification Reported Allergen(s) Allergy Type Date of Onset Reaction(s) Facility (20 sources) Amoxicillin; Translations: [AMOXICILLIN] Drug Allergy 8 Unknown, Rash, Hives [facility] (20 sources) Seasonal allergy; Translations: [SEASONAL ALLERGIES] Allergy to substance 8 Itching [facility] (13 sources) Doxycycline; Translations: [DOXYCYCLINE] Drug Allergy 3 Headache [facility] (20 sources) Dicyclomine; Translations: [DICYCLOMINE] Drug Allergy 4 Intolerance [facility] (1 source) Amoxicillin Drug Allergy 5 [facility] Medications Current Medications Medication Drug Class(es) Dates Sig (Normalized) Sig (Original) Acetaminophen (14 sources) ACETAMINOPHEN PO Take 1 dose by mouth as needed. Active take 1 tablet by jojo th every six hours as needed for pain acetaminophen (TYLENOL) 500 MG tablet Ta ke 1 (one) tablet (500 mg total) by mouth every 6 (six) hours as needed for pain . 0 Active acetaminophen 325 mg / oxyCODONE hydrochloride 5 mg oral tablet (1 source) Opioid Agonist Start: 03-09-2023 End: 03-16-2023 take 1 tablet by mouth every six hours as needed for pain oxyCODONE-acetaminophen (PERCOCET) 5-325 mg per tablet Indications: Post-op pain Take 1 (one) tablet by mouth every 6 (six) hours as needed for pain . 28 tablet 0 03/09/2023 03/16/2023 Active aspirin 81 mg oral tablet (9 sources) Platelet Aggregation Inhibitor, Nonsteroidal Anti-inflammator y Drug take 1 mg by mouth once daily Aspirin 81 mg tab Take 1 mg by mouth once daily. Active atorvastatin 40 mg oral tablet (11 sources) HMG-CoA Reductase Inhibitor Start: 11-23-2024 take 1 tablet by mouth once daily atorvastatin (LIPITOR) 40 mg tablet Indications: Hyperlipidemia, unspecified hyperlipidemia type Take 1 tablet by mouth once daily. 90 tablet 3 11/23/2024 Active busPIRone hydrochloride 10 mg oral tablet (20 sources) Start: 07-01-2022 take 1 tablet by mouth twice daily Buspirone 10 mg tablet Active 10 mg PO TWICE A DAY July 01, 2022 1:00am Start: 04-13-2021 End: 11-03-2023 take 1 tablet by mouth three times daily busPIRone (BUSPAR) 10 MG tablet Indications: Anxiety Take 1 (one) tablet (10 mg total) by mouth 3 (three) times a day . 90 tablet 11 11/03/2022 Active Start: 04-13-2021 End: 08-11-2023 take 1 tablet by mouth once daily busPIRone (BUSPAR) 10 mg tablet Take 10 mg by mouth once daily. 0 04/13/2021 08/11/2023 Discontinued (Course of therapy completed) Comment on above: Take 10 mg by mouth once daily. cetirizine hydrochloride 10 mg oral tablet (20 sources) Histamine-1 Receptor Antagonist cetirizine (ZYRTEC) 10 mg tablet Take 10 mg by mouth as needed. Active diphenhydrAMINE (20 sources) Histamine-1 Receptor Antagonist diphenhydramine HCl (BENADRYL ORAL) Take 1 tablet by mouth as needed. Active diphenhydramine HCl (BENADRYL ORAL) Take by mouth. Active diphenhydramine HCl (UNISOM SLEEPGELS ORAL) Take by mouth PRN . Active diphenhydramine HCl (UNISOM SLEEPGELS ORAL) Take by mouth PRN . 0 Active diphenhydramine HCl (BENADRYL ORAL) Take by mouth. 0 Active Comment on above: Take by mouth. doxycycline hyclate 100 mg oral tablet (4 sources) Tetracycline-class Drug Start: 3 End: 3 take 1 tablet by mouth twice daily doxycycline hyclate (VIBRA-TABS) 100 MG tablet Take 1 (one) tablet (100 mg total) by mouth 2 (two) times a day for 10 days . 20 tablet 0 03/31/2023 04/10/2023 Active escitalopram 10 mg oral tablet (20 sources) Serotonin Reuptake Inhibitor Start: 2 End: 4 take 1 tablet by mouth once daily Escitalopram Oxalate 10 mg tablet Active 10 mg PO DAILY July 01, 2022 1:00am famotidine 20 mg oral tablet (5 sources) Histamine-2 Receptor Antagonist Start: 3 take 1 tablet by mouth once daily Famotidine 20 mg tablet Active 20 mg PO DAILY July 01, 2022 1:00am Start: 05-27-2022 End: 01-13-2023 take 1 tablet by mouth twice daily famotidine (PEPCID) 20 MG tablet Take 1 (one) tablet (20 mg total) by mouth 2 (two) times a day . 60 tablet 0 05/27/2022 01/13/2023 Discontinued (Patient's Request) FLUoxetine 20 mg oral capsule (20 sources) Serotonin Reuptake Inhibitor Start: 11-04-2023 End: 05-19-2025 take 1 capsule by mouth once daily FLUoxetine (PROZAC) 20 mg capsule Indications: CARO (generalized anxiety disorder) Take 1 capsule by mouth once daily. 30 capsule 5 11/20/2024 05/19/2025 Active fluticasone propionate 0.05 mg/actuat metered dose nasal spray (20 sources) Corticosteroid Start: 07-27-2024 End: 07-27-2025 take 1 spray(s) nasal route twice daily fluticasone (FLONASE ALLERGY RELIEF) 50 mcg/actuation nasal spray Indications: Seasonal allergies Use 1 [place] in each nostril two times a day. 1 Each 5 07/27/2024 07/27/2025 Active Start: 07-27-2024 End: 07-27-2025 fluticasone (Flonase) 50 mcg /actuation nasal spray 1 spray by Does not apply route twice a day. 07/27/2024 07/27/2025 Active hydrOXYzine hydrochloride 25 mg oral tablet (7 sources) Antihistamine Start: 08-11-2023 End: 11-09-2023 take 1 tablet by mouth every six hours as needed for anxiety hydrOXYzine HCl (ATARAX) 25 mg tablet Indications: CARO (generalized anxiety disorder) Take 1 tablet by mouth every 6 hours as needed for anxiety. 30 tablet 2 08/11/2023 11/09/2023 Active Comment on above: Take 1 tablet by jojo th every 6 hours as needed for anxiety. ibuprofen 600 mg oral tablet (20 sources) Nonsteroidal Anti-inflammatory Drug Start: 01-20-2019 End: 05-09-2020 take 1 tablet by mouth every six hours as needed for pain Ibuprofen 600 MG tablet Active 600 mg PO EVERY 6 HOURS NEEDED as needed for Pain Score 1-3 30 0 May 09, 2020 1:00am End: 12-14-2024 IBUPROFEN PO Take 1 dose by mouth as needed. 12/14/2024 Discontinued (Clinical Decision) IBUPROFEN PO Ren e 1 dose by mouth as needed. Active take 3 tablets by mo uth every six hours as needed ibuprofen 200 mg tablet Take 3 tablets (600 mg) by mouth every 6 hours if needed for mild pain (1 - 3). Active take 1 tablet by jojo th every six hours as needed for pain ibuprofen (ADVIL,MOTRIN) 800 MG tablet Take 1 (one) tablet (800 mg total) by mouth every 6 (six) hours as needed for pain . Active methylPREDNISolone (1 source) Corticosteroid Start: 09-01-2023 End: 09-07-2023 methylPREDNISolone (MEDROL DOSEPACK) 4 mg tablet Follow package directions . 21 tablet 0 09/01/2023 09/07/2023 Active metoprolol tartrate 50 mg oral tablet (9 sources) beta-Adrenergic Ric Start: 12-05-2024 metoprolol tartrate, short acting, (LOPRESSOR) 50 mg tablet Take one 50 mg tablet the evening prior to the CTA examination, take another 50 mg tablet the morning of the CTA examination. 2 tablet 12/05/2024 Active nitroglycerin 0.3 mg sublingual tablet (8 sources) Nitrate Vasodilator Start: 12-05-2024 take 1 tablet under the tongue once nitroglycerin sublingual (NITROQUICK) 0.3 mg SL tablet Dissolve 1 tablet under the tongue one time only for 1 dose. To be administered in Radiology for CTA exam 1 tablet 12/05/2024 Active omeprazole 20 mg delayed release oral capsule (20 sources) Proton Pump Inhibitor Start: 11-08-2024 End: 05-07-2025 take 1 capsule by mouth once daily before breakfast omeprazole (PRILOSEC) 20 mg capsule Indications: Gastroesophageal reflux disease with esophagitis, unspecified whether hemorrhage Take 1 capsule by mouth daily before breakfast. 1/2 hr before meal. 30 capsule 5 11/08/2024 05/07/2025 Active ondansetron 4 mg oral tablet (5 sources) Serotonin-3 Receptor Antagonist Start: 07-01-2022 take 1 tablet by mouth every eight hours Ondansetron Hcl 4 mg tablet Active 4 mg PO Q8H July 01, 2022 1:00am Start: 05-27-2022 End: 01-13-2023 take 1 tablet by mouth every eight hours as needed ondansetron (ZOFRAN-ODT) 4 MG disintegrating tablet Dissolve 1 (one) tablet (4 mg total) on top of tongue every 8 (eight) hours as needed . 20 tablet 0 05/27/2022 01/13/2023 Discontinued (Patient's Request) pantoprazole 40 mg delayed release oral tablet (5 sources) Proton Pump Inhibitor Start: 05-27-2022 End: 01-13-2023 take 1 tablet by mouth once daily Pantoprazole 40 mg tablet,delayed release (DR/EC) Active 40 mg PO DAILY July 01, 2022 1:00am perflutren lipid microspheres 1.3 mL in NaCl (PF) 0.9% 10 mL injection (DEFINITY) (3 sources) Start: 12-05-2024 End: 12-12-2024 perflutren lipid microspheres 1.3 mL in NaCl (PF) 0.9% 10 mL injection (DEFINITY) phenylephrine hydrochloride 25 mg/ml ophthalmic solution (1 source) alpha-1 Adrenergic Agonist Start: 11-09-2024 End: 11-09-2024 PHENYLephrine 2.5 % 1 drop (AK-DILATE, PILAR-SYNEPHRINE) Prenatabs FA (1 source) Start: 01-18-2019 Prenatabs FA Active 1 {tbl} PO DAILY January 18, 2019 12:00am Check with primary doctor prochlorperazine 10 mg oral tablet (6 sources) Phenothiazine Start: 04-04-2023 take 1 tablet by mouth every six hours as needed for nausea prochlorperazine (Compazine) 10 MG tablet Take 1 (one) tablet (10 mg total) by mouth every 6 (six) hours as needed for nausea . 20 tablet 04/04/2023 Active proparacaine hydrochloride 5 mg/ml ophthalmic solution (1 source) Local Anesthetic Start: 11-09-2024 End: 11-09-2024 proparacaine 0.5 % 1 drop (ALCAINE) rifAXIMin 550 mg oral tablet (2 sources) Rifamycin Antibacterial Start: 09-22-2023 End: 10-06-2023 take 1 tablet by mouth three times daily rifAXIMin (XIFAXAN) 550 mg tablet Indications: Irritable bowel syndrome with diarrhea Take 1 tablet by mouth three times a day for 14 days. 42 tablet 0 09/22/2023 10/06/2023 Active sucralfate 100 mg/ml oral suspension (5 sources) Aluminum Complex Start: 07-01-2022 take 1 mL by mouth twice daily Sucralfate 100 mg/mL suspension Active 10 mL PO TWICE A DAY July 01, 2022 1:00am Start: 05-27-2022 End: 01-13-2023 take 10 mL by mouth four times daily before mealtime sucralfate (CARAFATE) 100 mg/mL suspension Take 10 mL (1 g total) by mouth 4 (four) times a day before meals . 1200 mL 0 05/27/2022 01/13/2023 Discontinued (Patient's Request) topiramate 50 mg oral tablet (20 sources) Start: 12-14-2024 End: 06-30-2025 take 1 tablet by mouth twice daily topiramate (TOPAMAX) 50 mg tablet Indications: Migraine without aura and without status migrainosus, not intractable Take 1 tablet by mouth two times a day. 60 tablet 5 01/01/2025 06/30/2025 Active Start: 11-08-2024 End: 02-06-2025 take 1 tablet by mouth twice daily topiramate (TOPAMAX) 25 mg tablet Indications: Migraine without aura and without status migrainosus, not intractable Take 1 tablet by mouth two times a day. 60 tablet 2 11/08/2024 12/14/2024 Discontinued traZODone hydrochloride 100 mg oral tablet (20 sources) Serotonin Reuptake Inhibitor Start: 12-14-2024 End: 06-12-2025 take 1 tablet by mouth at bedtime as needed traZODone (DESYREL) 100 mg tablet Indications: Difficulty sleeping Take 1 tablet by mouth at bedtime as needed. 30 tablet 5 12/14/2024 06/12/2025 Active Start: 12-14-2024 End: 12-14-2024 take 2 tablets by mouth once daily at bedtime traZODone (DESYREL) 50 mg tablet Indications: Difficulty sleeping Take 2 tablets by mouth daily at bedtime. 90 tablet 3 12/14/2024 12/14/2024 Discontinued Start: 08-11-2023 End: 10-03-2025 take 1 tablet by mouth once daily at bedtime traZODone (DESYREL) 50 mg tablet Indications: Difficulty sleeping Take 1 tablet by mouth daily at bedtime. 90 tablet 3 10/08/2024 12/14/2024 Discontinued Comment on above: Take 1 tablet by jojo th daily at bedtime. tropicamide 10 mg/ml ophthalmic solution (1 source) Anticholinergic Start: 11-09-2024 End: 11-09-2024 tropicamide 1 % 1 drop (MYDRIACYL) UNABLE TO FIND (12 sources) UNABLE TO FIND O TC Allergy Medication PRN . Active UNABLE TO FIND O TC Allergy Medication PRN . 0 Active Completed/Discontinued Medications Medication Drug Class(es) Dates Sig (Normalized) Sig (Original) Bupivacaine (4 sources) Amide Local Anesthetic Start: 01-13-2023 End: 01-13-2023 BUPivacaine HCl (MARCAINE) 0.5 % (5 mg/mL) injection 1 mL 21 day ethinyl estradiol 0.663112 mg/hr / etonogestrel 0.005 mg/hr vaginal system (2 sources) Progestin, Estrogen Start: 01-29-2022 End: 08-11-2023 Etonogestrel-Ethinyl Estradiol (NUVARING) 0.12-0.015 mg/24 hr vaginal ring Use 1 Each vaginally as directed. INSERT ONE(1) RING VAGINALLY AND LEAVE IN PLACE FOR THREE WEEKS, THEN REMOVE FOR 1 WEEK. 14 Each 14 01/29/2022 08/11/2023 Discontinued (Course of therapy completed) Comment on above: Use 1 Each vaginally as directed. INSERT ONE(1) RING VAGINALLY AND LEAVE IN PLACE FOR THREE WEEKS, THEN REMOVE FOR 1 WEEK. gadoterate meglumine (Dotarem) 0.5 mmol/mL contrast injection 20 mL (1 source) Start: 11-08-2024 End: 11-08-2024 inject 20 mL intravenously once 20 mL, intravenous, Once in imaging, Starting on Jennifer 11/08/24 at 2016, For 1 dose, Administer undiluted as rapid I.V. bolus injection iv contrast (will be provided with radiology test) (20 sources) Start: 12-05-2024 End: 12-06-2024 inject 1 dose intravenously once iv contrast (will be provided with radiology test) CTA Coronary. No IV access, insert saline lock prior to the sedation, infusion, injection for imaging exam. Discontinue saline lock post exam. If Pt. has a central line or IVAD, may access for administration according to line specific nursing protocol. Once exam is complete flush line and de-access according to line specific nursing protocol in the CT contrast administration guidelines link. 1 each 12/05/2024 12/06/2024 Start: 11-22-2024 End: 11-23-2024 inject 1 dose intravenously once iv contrast (will be provided with radiology test) Indications: Cerebral infarction, unspecified mechanism (HCC) CTA Head/Neck W No IV access, insert saline lock prior to the sedation, infusion, injection for imaging exam. Discontinue saline lock post exam. If Pt. has a central line or IVAD, may access for administration according to line specific nursing protocol. Once exam is complete flush line and de-access according to line specific nursing protocol in the CT contrast administration guidelines link. 1 each 11/22/2024 11/23/2024 Active Start: 11-22-2024 End: 11-23-2024 inject 1 dose intravenously once iv contrast (will be provided with radiology test) Indications: Cerebral infarction, unspecified mechanism (HCC) MRI Brain Inject, intravenously, once for 1 dose.No IV access, insert saline lock prior to beginning of sedation, infusion, injection of imaging exam.Discontinue saline lock post exam. If Pt. has a central line or IVAD, may access for administration according to line specific nursing protocol.Once exam is complete flush line and de-access according to line specific nursing protocol in the MR contrast administration guidelines link 1 each 11/22/2024 11/23/2024 Active Start: 11-22-2024 End: 11-23-2024 inject 1 dose intravenously once iv contrast (will be provided with radiology test) Indications: [place] headache CTA Head/Neck W No IV access, insert saline lock prior to the sedation, infusion, injection for imaging exam. Discontinue saline lock post exam. If Pt. has a central line or IVAD, may access for administration according to line specific nursing protocol. Once exam is complete flush line and de-access according to line specific nursing protocol in the CT contrast administration guidelines link. 1 each 11/22/2024 11/23/2024 Active Start: 11-22-2024 End: 11-23-2024 inject 1 dose intravenously once iv contrast (will be provided with radiology test) Indications: [place] headache CTV Head WO/W IVCON No IV access, insert saline lock prior to the sedation, infusion, injection for imaging exam. Discontinue saline lock post exam. If Pt. has a central line or IVAD, may access for administration according to line specific nursing protocol. Once exam is complete flush line and de-access according to line specific nursing protocol in the CT contrast administration guidelines link. 1 each 11/22/2024 11/23/2024 Active Start: 11-22-2024 End: 11-23-2024 inject 1 dose intravenously once iv contrast (will be provided with radiology test) Indications: [place] headache CTV Head W IVCON No IV access, insert saline lock prior to the sedation, infusion, injection for imaging exam. Discontinue saline lock post exam. If Pt. has a central line or IVAD, may access for administration according to line specific nursing protocol. Once exam is complete flush line and de-access according to line specific nursing protocol in the CT contrast administration guidelines link. 1 each 11/22/2024 11/23/2024 Active Start: 11-13-2024 End: 11-14-2024 inject 1 dose intravenously once iv contrast (will be provided with radiology test) MRI Brain Inject, intravenously, once for 1 dose.No IV access, insert saline lock prior to beginning of sedation, infusion, injection of imaging exam.Discontinue saline lock post exam. If Pt. has a central line or IVAD, may access for administration according to line specific nursing protocol.Once exam is complete flush line and de-access according to line specific nursing protocol in the MR contrast administration guidelines link 1 each 11/13/2024 11/14/2024 meclizine hydrochloride 12.5 mg oral tablet (1 source) Antiemetic Start: 11-04-2021 End: 04-05-2022 take 1 tablet by mouth three times daily as needed for nausea meclizine (ANTIVERT) 12.5 mg tablet Take 1 (one) tablet (12.5 mg total) by mouth 3 (three) times a day as needed for nausea . 30 tablet 0 11/04/2021 04/05/2022 Discontinued meloxicam 15 mg oral tablet (20 sources) Nonsteroidal Anti-inflammatory Drug Start: 01-13-2023 End: 01-02-2025 take 1 tablet by mouth once daily meloxicam (MOBIC) 15 MG tablet Take 1 (one) tablet (15 mg total) by mouth daily . 30 tablet 1 09/19/2023 01/02/2024 Discontinued (Reorder (Suppress CancelRx Message to Pharmacy)) PARoxetine hydrochloride 20 mg oral tablet (20 sources) Serotonin Reuptake Inhibitor Start: 09-22-2023 End: 04-22-2024 take 1 tablet by mouth once daily PARoxetine (PAXIL) 20 mg tablet Indications: CARO (generalized anxiety disorder) Take 1 tablet by mouth once daily. 90 tablet 1 10/25/2023 11/04/2023 Discontinued Start: 02-22-2021 End: 11-09-2023 take 1 tablet by mouth once daily PARoxetine (PAXIL) 10 MG tablet Take 1 (one) tablet (10 mg total) by mouth daily . 0 08/11/2023 11/09/2023 Active Comment on above: TAKE 1 TABLET BY JOJO TH EVERY DAY Take 1 tablet by jojo th once daily. SUMAtriptan 50 mg oral tablet (13 sources) Serotonin-1b and Serotonin-1d Receptor Agonist Start: End: take 1 tablet by mouth every two hours as needed for headache SUMAtriptan (IMITREX) 50 mg tablet Indications: Migraine without aura and without status migrainosus, not intractable Take 1 tablet by mouth as needed for migraine headache (see administration instructions) (at onset of headache. May repeat after 2 hours.). May repeat dose after 2 hours if needed. Maximum daily dose is 200 mg per day. 9 tablet 2 11/08/2024 11/22/2024 Discontinued Start: 11-08-2024 End: 02-06-2025 take 1 tablet by mouth once SUMAtriptan (Imitrex) 50 m g tablet Take 1 tablet (50 mg) by mouth 1 time if needed. 11/08/2024 02/06/2025 Active 1 ml triamcinolone acetonide 40 mg/ml injection (5 sources) Corticosteroid Start: 01-13-2023 End: 01-13-2023 triamcinolone acetonide (KENALOG-40) injection 40 mg Start: 01-13-2023 End: 01-13-2023 triamcinolone acetonide (SANDRA ALOG-40) injection 40 mg Start: 01-13-2023 End: 01-13-2023 triamcinolone acetonide (SANDRA ALOG-40) injection 40 mg Start: 01-13-2023 End: 01-13-2023 triamcinolone acetonide (SANDRA ALOG-40) injection 40 mg Start: 09-25-2020 End: 09-25-2020 triamcinolone acetonide (SANDRA ALOG-40) injection 40 mg Problems Active Problems Problem Classification Problem Date Documented Da te Episodic/Chronic Abdominal pain (1 source) Right lower quadrant pain; Translations: [Right lower quadrant pain] Episodic Acute cerebrovascular disease (11 sources) Cerebral infarction; Translations: [Cerebral infarction, unspecified] Onset: 5 11-22-2024 Chronic Anxiety disorders (20 sources) Anxiety; Translations: [Anxiety disorder, unspecified] Onset: 1 Chronic Cardiac and circulatory congenital anomalies (3 sources) Patent foramen ovale; Translations: [PFO (patent foramen ovale) (HCC)] Onset: 5 01-10-2025 Chronic Disorders of lipid metabolism (1 source) Hyperlipidemia; Translations: [Hyperlipidemia, unspecified] 11-23-2024 Chronic Esophageal disorders (5 sources) Gastro-esophageal reflux disease with esophagitis; Translations: [Esophageal dysmotility] Onset: 5 11-08-2024 Chronic Esophageal disorders (1 source) Esophageal disorders; Translations: [Gastroesophageal reflux disease with esophagitis, unspecified whether hemorrhage] Onset: 5 Headache; including migraine (8 sources) Migraine without aura, not refractory ; Translations: [Migraine without aura, not intractable, without status migrainosus] Onset: 5 11-08-2024 Chronic Headache; including migraine (2 sources) Headache; including migraine; Translations: [Headache, unspecified] Onset: 5 Joint disorders and dislocations; trauma-related (20 sources) Patellofemoral syndrome of right knee; Translations: [Patellofemoral disorders, right knee] Onset: 1 Chronic Malaise and fatigue (1 source) Fatigue; Translations: [Other fatigue] 09-22-2023 Episodic Miscellaneous mental health disorders (1 source) Psychophysiologic insomnia; Translations: [Chronic insomnia] Onset: Chronic Other aftercare (2 sources) Surgical follow-up; Translations: [Encounter for follow-up examination after completed treatment for conditions other than malignant neoplasm] 03-11-2023 Episodic Other circulatory disease (1 source) History of cerebrovascular accident due to ischemia; Translations: [Personal history of transient ischemic attack (TIA), and cerebral infarction without residual deficits] 11-22-2024 Episodic Other congenital anomalies (1 source) Congenital forefoot valgus; Translations: [Other congenital valgus deformities of feet] 10-20-2023 Chronic Other congenital anomalies (2 sources) Other congenital valgus deformities of feet; Translations: [Other congenital valgus deformities of feet] Onset: 4 Chronic Other connective tissue disease (3 sources) Plantar fasciitis; Translations: [Plantar fascial fibromatosis] 01-13-2023 Episodic Other connective tissue disease (1 source) Plantar fasciitis of left foot; Translations: [Plantar fascial fibromatosis] 10-20-2023 Episodic Other connective tissue disease (9 sources) Pain of bilateral hands; Translations: [Pain in right hand] 02-02-2024 Episodic Other connective tissue disease (1 source) Unspecified symptoms and signs involving the nervous system; Translations: [Stroke-like symptoms] Onset: 5 Episodic Other ear and sense organ disorders (1 source) Otalgia, right ear; Translations: [Otalgia, unspecified] 02-02-2024 Episodic Other eye disorders (1 source) Eye / vision finding 11-08-2024 Episodic Other female genital disorders (1 source) Vaginal discharge; Translations: [Other specified noninflammatory disorders of vagina] Episodic Other gastrointestinal disorders (1 source) Irritable bowel syndrome with diarrhea; Translations: [Irritable bowel syndrome with diarrhea] 09-22-2023 Chronic Other gastrointestinal disorders (1 source) Groin mass; Translations: [Other intra-abdominal and pelvic swelling, mass and lump] 09-22-2023 Episodic Other gastrointestinal disorders (2 sources) Dysphagia; Translations: [Dysphagia, unspecified] 09-22-2023 Episodic Other gastrointestinal disorders (1 source) Loose stool; Translations: [Other fecal abnormalities] 10-01-2022 Episodic Other nervous system disorders (4 sources) Ulnar neuropathy; Translations: [Lesion of ulnar nerve, unspecified upper limb] 03-12-2024 Chronic Other nervous system disorders (1 source) Lesion of ulnar nerve, unspecified upper limb; Translations: [Ulnar neuropathy at elbow, unspecified laterality] Onset: 5 Chronic Other nervous system disorders (2 sources) Other acute postprocedural pain; Translations: [Other acute postprocedural pain] Onset: 3 Episodic Other nervous system disorders (6 sources) Numbness and tingling sensation of skin; Translations: [Anesthesia of skin] 02-02-2024 Episodic Other nervous system disorders (1 source) Skin sensation disturbance; Translations: [Other disturbances of skin sensation] 02-13-2024 Episodic Other nervous system disorders (1 source) Numbness; Translations: [Anesthesia of skin] 11-08-2024 Episodic Other non-traumatic joint disorders (4 sources) Pain of left wrist; Translations: [Pain in left wrist] 07-27-2024 Episodic Other nutritional; endocrine; and metabolic disorders (2 sources) Overweight; Translations: [Overweight] Onset: 1 Episodic Other skin disorders (4 sources) Scar; Translations: [Scar conditions and fibrosis of skin] 05-05-2023 Episodic Other skin disorders (2 sources) Scar conditions and fibrosis of skin; Translations: [Scar conditions and fibrosis of skin] Onset: 4 Episodic Other skin disorders (1 source) Skin lesion; Translations: [Disorder of the skin and subcutaneous tissue, unspecified] 02-02-2024 Episodic Other upper respiratory disease (2 sources) Seasonal allergy; Translations: [Other seasonal allergic rhinitis] 07-27-2024 Chronic Residual codes; unclassified (7 sources) Difficulty sleeping ; Translations: [Sleep disorder, unspecified] 08-11-2023 Episodic Residual codes; unclassified (1 source) Left against medical advice; Translations: [Procedure and treatment not carried out because of patient's decision for other reasons] 11-08-2024 Episodic Residual codes; unclassified (2 sources) Procedure and treatment not carried out because of patient's decision for other reasons; Translations: [Procedure and treatment not carried out because of patient's decision for other reasons] Onset: 5 Episodic Residual codes; unclassified (1 source) Sleep disorder, unspecified; Translations: [Difficulty sleeping] Onset: 5 Episodic Unclassified (2 sources) Post-op Onset: 3 Unclassified (1 source) PFO (patent foramen ovale) ([facility]); Translations: [PFO (patent foramen ovale) (HCC)] Onset: 5 Unclassified (1 source) Visual Changes Onset: 5 Past or Other Problems Problem Classification Problem Date Documented Date Episodic/Chronic Blindness and vision defects (15 sources) Homonymous hemianopia; Translations: [Homonymous bilateral field defects, unspecified side] Onset: 11-08-2024 11-08-2024 Episodic Conditions associated with dizziness or vertigo (20 sources) Dizziness; Translations: [Dizziness and giddiness] Onset: 11-04-2021 11-04-2021 Episodic Contraceptive and procreative management (20 sources) Patient encounter status; Translations: [Encounter for removal of intrauterine contraceptive device] Onset: 05-25-2018 Resolved: 06-22-2018 Episodic Headache; including migraine (5 sources) Acute headache; Translations: [Acute nonintractable headache, unspecified headache type] Onset: 11-22-2024 11-08-2024 Episodic Nonspecific chest pain (20 sources) Chest pain; Translations: [Chest pain, unspecified] Onset: 05-20-2022 Episodic Other aftercare (2 sources) Encounter for follow-up examination after completed treatment for conditions other than malignant neoplasm; Translations: [Encounter for follow-up examination after completed treatment for conditions other than malignant neoplasm] Onset: 03-25-2023 Episodic Other circulatory disease (1 source) Personal history of transient ischemic attack (TIA), and cerebral infarction without residual deficits; Translations: [History of ischemic stroke] Onset: 11-22-2024 Episodic Other complications of (20 sources) Asthma in ; Translations: [Diseases of the respiratory system complicating , first trimester] Onset: 05-25-2018 Resolved: 06-12-2020 06-12-2020 Episodic Other complications of (20 sources) Finding of pattern of ; Translations: [Supervision of other high risk pregnancies, unspecified trimester] Onset: 09-13-2019 Resolved: 06-12-2020 06-12-2020 Episodic Other connective tissue disease (20 sources) Plantar fasciitis of right foot; Translations: [Plantar fascial fibromatosis] Onset: 02-17-2023 01-13-2023 Episodic Other connective tissue disease (20 sources) Calcaneal spur of right foot; Translations: [Calcaneal spur, right foot] Onset: 02-17-2023 01-13-2023 Episodic Other connective tissue disease (4 sources) Plantar fascial fibromatosis; Translations: [Plantar fascial fibromatosis] Onset: 02-17-2023 Episodic Other connective tissue disease (4 sources) Calcaneal spur, right foot; Translations: [Calcaneal spur, right foot] Onset: 02-24-2023 Episodic Other connective tissue disease (2 sources) Pain in right foot; Translations: [Pain in right foot] Onset: 01-13-2023 Episodic Other connective tissue disease (2 sources) Pain in right hand; Translations: [Bilateral hand pain] Onset: 09-07-2024 Episodic Other connective tissue disease (2 sources) Pain in left hand; Translations: [Bilateral hand pain] Onset: 09-07-2024 Episodic Other nervous system disorders (3 sources) Paresthesia of skin; Translations: [Paresthesia of skin] Onset: 09-07-2024 Episodic Other nervous system disorders (2 sources) Anesthesia of skin; Translations: [Numbness] Onset: 09-07-2024 Episodic Other nutritional; endocrine; and metabolic disorders (20 sources) Body mass index 25-29 - overweight; Translations: [Overweight] Onset: 04-13-2021 Episodic Other and delivery including normal (20 sources) Normal ; Translations: [Encounter for supervision of normal first , first trimester] Onset: 09-22-2018 Resolved: 06-12-2020 06-12-2020 Episodic Other screening for suspected conditions (not mental disorders or infectious disease) (4 sources) Magnetic resonance imaging of brain abnormal; Translations: [Other abnormal findings on diagnostic imaging of central nervous system] Onset: 11-07-2024 11-22-2024 Episodic Residual codes; unclassified (20 sources) H/O: depression; Translations: [Personal history of other complications of , childbirth and the puerperium] Onset: 09-13-2019 Resolved: 06-12-2020 06-12-2020 Episodic Screening and history of mental health and substance abuse codes (20 sources) H/O: anxiety state; Translations: [Personal history of other mental and behavioral disorders] Onset: 05-25-2018 05-25-2018 Episodic Spondylosis; intervertebral disc disorders; other back problems (5 sources) Pain in the coccyx; Translations: [Sacrococcygeal disorders, not elsewhere classified] Onset: 07-27-2024 07-27-2024 Episodic Results Test Name Value Interpretation Reference Range Facility [facility] 03-06-2025 [facility] Office Visit (CAFLMN) ANGELITA MARLEY ([id number]) 1995 F Date Time Provider Department 03/06/25 8:00 AM TRANSESOPHAGEAL ECHO CARD MAINCAFLMN During your visit today, we recorded the following information about you: Temperature Pulse Respiration Blood pressure 97.8 degrees 61/minute 9/minute 96/70 Ankush Ferrer RN 03/06/2025 9:50 AM Signed AMBULATORY PATIENT EDUCATION TOPIC: SHANNON READINESS TO LEARN COGNITIVE ABILITY: Alert and oriented MOTIVATION TO LEARN: Eager Interested FAMILY SUPPORT: High - Very involved in pt care INSTRUCTION PROVIDED TO: Patient PATIENT LEARNS BEST BY: Individual Instruction Verbal Instruction FACTORS AFFECTING LEARNING: None PHYSICAL LIMITATIONS AFFECTING LEARNING: None LEARNING RESPONSE DIAGNOSIS: PFO METHOD OF INSTRUCTION: Individual instruction Verbal instruction PATIENT / FAMILY RESPONSE: Verbalizes understanding of: POST-OPERATIVE INSTRUCTIONS-Correct actions to take to reduce postoperative complications PRE-PROCEDURE INSTRUCTIONS-Correct action to take to follow pre-procedure instructions FOLLOW-UP PLAN: Complete - No need for follow-up SUPPLEMENTAL MATERIAL: Post SHANNON instructions given REFERRAL (RECOMMENDATION): None Electronically Signed By Ankush Ferrer RN In Department: CARDIOLOGY Referring Provider: MARSHALL TRAN [[id number]] Allergies As of Date: 03/06/2025 Noted Allergy Reaction AMOXICILLIN 01/13/2018 16 - Unknown Comments: When she was a child DICYCLOMINE 09/22/2023 5 - Intolerance Comments: Patient reports causes migraines SEASONAL ALLERGIES 01/13/2018 9 - Itching Date Reviewed: 03/06/2025 Reviewed by: Cecile Greene RN - Fully Assessed Visit Diagnosis:PFO (patent foramen ovale) (HCC) [Q21.12] Order(s):ECHO TRANSESOPHAGEAL [[id number]] Order #: [id number]. #:[id number] CCFQty: 1 [] benzocaine 20% (TOPEX)Disp: Rfl: [] lidocaine urojet 2 % topical gel (GLYDO)Disp: Rfl: [] fentaNYL 50 mcg/mL injection (SUBLIMAZE)Disp: Rfl: [] midazolam (PF) injection (VERSED)Disp: Rfl: Prescriptions as of 03/06/2025 - sodium chloride 0.9 %, flush, (BD POSIFLUSH) syringe Inject 2-10 mL intravenously as directed. For Echo procedure - topiramate (TOPAMAX) 50 mg tablet Take 1 tablet by mouth two times a day. - traZODone (DESYREL) 100 mg tablet Take 1 tablet by mouth at bedtime as needed. - ACETAMINOPHEN PO Take 1 dose by mouth as needed. - Aspirin 81 mg tab Take 1 mg by mouth once daily. - metoprolol tartrate, short acting, (LOPRESSOR) 50 mg tablet Take one 50 mg tablet the evening prior to the CTA examination, take another 50 mg tablet the morning of the CTA examination. - atorvastatin (LIPITOR) 40 mg tablet Take 1 tablet by mouth once daily. - FLUoxetine (PROZAC) 20 mg capsule Take 1 capsule by mouth once daily. - omeprazole (PRILOSEC) 20 mg capsule Take 1 capsule by mouth daily before breakfast. 1/2 hr before meal. Problem List As Of Date 03/06/2025 Noted Resolved History of anxiety [Z86.59] 05/25/2018 Genetic testing [Z13.79] 05/25/2018 06/22/2018 Encounter for ultrasound [Z36.9] 05/25/2018 06/22/2018 Asthma complicating in first trimeste*05/25/2018 06/12/2020 Encounter for supervision of normal first pregn*09/22/2018 06/12/2020 Short interval between pregnancies affecting pr*09/13/2019 06/12/2020 History of depression [Z87.59, Z86.5*09/13/2019 06/12/2020 Prescriptions ordered this encounter Disp Refills Start End BENZOCAINE 20% TOPICAL SPRAY 03/06/2025 03/06/2025 Route: TOP LIDOCAINE 2 % MUCOSAL JELLY IN APPLI* 03/06/2025 03/06/2025 FENTANYL (PF) 50 MCG/ML INJECTION SO* 03/06/2025 03/06/2025 Route: IV MIDAZOLAM (PF) 1 MG/ML INJECTION KALI* 03/06/2025 03/06/2025 Route: IV Encounter Status:Closed by CECILE GREENE on 03/06/25 Normal [facility] NURSING PROGon 03-06-2025 NURSING PROG HNO ID: [id number] Author: ANKUSH FERRER RN Service: ? Author Type: Registered Nurse Type: Nursing Progress Note Filed: 03/06/2025 09:50 Note Text: AMBULATORY PATIENT EDUCATION TOPIC: SHANNON READINESS TO LEARN COGNITIVE ABILITY: Alert and oriented MOTIVATION TO LEARN: Eager Interested FAMILY SUPPORT: High - Very involved in pt care INSTRUCTION PROVIDED TO: Patient PATIENT LEARNS BEST BY: Individual Instruction Verbal Instruction FACTORS AFFECTING LEARNING: None PHYSICAL LIMITATIONS AFFECTING LEARNING: None LEARNING RESPONSE DIAGNOSIS: PFO METHOD OF INSTRUCTION: Individual instruction Verbal instruction PATIENT / FAMILY RESPONSE: Verbalizes understanding of: POST-OPERATIVE INSTRUCTIONS-Correct actions to take to reduce postoperative complications PRE-PROCEDURE INSTRUCTIONS-Correct action to take to follow pre-procedure instructions FOLLOW-UP PLAN: Complete - No need for follow-up SUPPLEMENTAL MATERIAL: Post SHANNON instructions given REFERRAL (RECOMMENDATION): None Electronically Signed By Ankush Ferrer RN In Department: CARDIOLOGY Normal [facility] 03-05-2025 CNPN Telephone (NIKHILPascale) ANGELITA MARLEY ([id number]) 1995 F Date Time Provider Department 03/05/25 SANDRA ALVA During your visit today, we recorded the following information about you: Sandra Alva RN 03/05/2025 11:08 AM Signed ECHO LAB TELEPHONE INSTRUCTIONS: Learning Response: Instructions provided to: Patient Procedure: SHANNON Pre procedure education topics: Arrival time, NPO status, Medications, Travel, and Accompanied by a responsible adult Instructions/Restric tions Patient/Family Response Evaluation: Verbalizes understanding Follow Up Plan and Medication: As directed by physician Instruction/Suppleme ntal Material Given: Appointment Information and Procedure/Test Specific Information: Transesphageal Echocardiogram-SHANNON Instructed By Sandra Alva RN. In Department of CARDIOLOGY. Allergies As of Date: 03/05/2025 Noted Allergy Reaction AMOXICILLIN 01/13/2018 16 - Unknown Comments: When she was a child DICYCLOMINE 09/22/2023 5 - Intolerance Comments: Patient reports causes migraines SEASONAL ALLERGIES 01/13/2018 9 - Itching Date Reviewed: 02/20/2025 Reviewed by: Khloe De Los Santos RN - Fully Assessed Reason for Visit: Reminder Call [[id number]] Cmt: shannon Prescriptions as of 03/05/2025 - sodium chloride 0.9 %, flush, (BD POSIFLUSH) syringe Inject 2-10 mL intravenously as directed. For Echo procedure - topiramate (TOPAMAX) 50 mg tablet Take 1 tablet by mouth two times a day. - traZODone (DESYREL) 100 mg tablet Take 1 tablet by mouth at bedtime as needed. - ACETAMINOPHEN PO Take 1 dose by mouth as needed. - Aspirin 81 mg tab Take 1 mg by mouth once daily. - metoprolol tartrate, short acting, (LOPRESSOR) 50 mg tablet Take one 50 mg tablet the evening prior to the CTA examination, take another 50 mg tablet the morning of the CTA examination. - atorvastatin (LIPITOR) 40 mg tablet Take 1 tablet by mouth once daily. - FLUoxetine (PROZAC) 20 mg capsule Take 1 capsule by mouth once daily. - omeprazole (PRILOSEC) 20 mg capsule Take 1 capsule by mouth daily before breakfast. 1/2 hr before meal. Problem List As Of Date 03/05/2025 Noted Resolved History of anxiety [Z86.59] 05/25/2018 Genetic testing [Z13.79] 05/25/2018 06/22/2018 Encounter for ultrasound [Z36.9] 05/25/2018 06/22/2018 Asthma complicating in first trimeste*05/25/2018 06/12/2020 Encounter for supervision of normal first pregn*09/22/2018 06/12/2020 Short interval between pregnancies affecting pr*09/13/2019 06/12/2020 History of depression [Z87.59, Z86.5*09/13/2019 06/12/2020 Encounter Status:Closed by SANDRA ALVA on 03/05/25 Normal [facility] CBC W Auto Differential pane l (Bld)on 02-20-2025 Basophils (Bld) [#/Vol] 0.05 10*3/uL Normal <0.11 [facility] Comment on above: Order Comment: Speci men Type: BLOOD SPECIMENOrdering Facility: [facility] Address: [address], [place] [address] Performed By: #### 5 7021-8 ####[facility] [id number] [place] [address] [place] Basophils/100 WBC (Bld) 0.7 % Normal [facility] Comment on above: Order Comment: Speci men Type: BLOOD SPECIMENOrdering Facility: [facility] Address: [address] [place] [address] Performed By: #### 5 7021-8 ####[facility] [id number] [place] [address] [place] Differential cell count method Nom (Bld) Auto Normal [facility] Comment on above: Order Comment: Speci men Type: BLOOD SPECIMENOrdering Facility: [facility] Address: [address] [place] [address] Performed By: #### 5 7021-8 ####[facility] [id number] [place] [address] [place] Eosinophils (Bld) [#/Vol] 0.10 10*3/uL Normal <0.46 [facility] Comment on above: Order Comment: Speci men Type: BLOOD SPECIMENOrdering Facility: [facility] Address: [address] [place] [address] Performed By: #### 5 7021-8 ####[facility] [id number] [address] [place] Eosinophils/100 WBC (Bld) 1.5 % Normal [facility] Comment on above: Order Comment: Speci men Type: BLOOD SPECIMENOrdering Facility: [facility] Address: [address] [place] [address] Performed By: #### 5 7021-8 ####[facility] [id number] [address] [place] Erythrocyte distribution width (RBC) [Ratio] 12.3 % Normal 11.5-15.0 [facility] Comment on above: Order Comment: Speci men Type: BLOOD SPECIMENOrdering Facility: [facility] Address: [address] [place] [address] Performed By: #### 5 7021-8 ####[facility] [id number] [place] [address] [place] Hematocrit (Bld) [Volume fraction] 42.3 % Normal 36.0-46.0 [facility] Comment on above: Order Comment: Speci men Type: BLOOD SPECIMENOrdering Facility: [facility] Address: [address] [place] [address] Performed By: #### 5 7021-8 ####[facility] [id number] [place] [address] [place] Hemoglobin (Bld) [Mass/Vol] 14.8 g/dL Normal 11.5-15.5 [facility] Comment on above: Order Comment: Speci men Type: BLOOD SPECIMENOrdering Facility: [facility] Address: [address] [place] [address] Performed By: #### 5 7021-8 ####[facility] [id number] [place] [address] [place] Immature granulocytes (Bld) [#/Vol] 10*3/uL Normal <0.10 [facility] Comment on above: Order Comment: Speci men Type: BLOOD SPECIMENOrdering Facility: [facility] Address: [address] [place] [address] Performed By: #### 5 7021-8 ####[facility] [id number] [place] [address] [place] Immature granulocytes/100 WBC (Bld) 0.1 % Normal [facility] Comment on above: Order Comment: Speci men Type: BLOOD SPECIMENOrdering Facility: [facility] Address: [address] [place] [address] Performed By: #### 5 7021-8 ####[facility] [id number] [place] [address] [place] Lymphocytes (Bld) [#/Vol] 2.01 10*3/uL Normal 1.00-4.00 [facility] Comment on above: Order Comment: Speci men Type: BLOOD SPECIMENOrdering Facility: [facility] Address: [address] [place] [address] Performed By: #### 5 7021-8 ####[facility] [id number] [place] [address] [place] Lymphocytes/100 WBC (Bld) 30.1 % Normal [facility] Comment on above: Order Comment: Speci men Type: BLOOD SPECIMENOrdering Facility: [facility] Address: [address] [place] [address] Performed By: #### 5 7021-8 ####[facility] [id number] [place] [address] [place] MCH (RBC) [Entitic mass] 31.9 pg Normal 26.0-34.0 [facility] Comment on above: Order Comment: Speci men Type: BLOOD SPECIMENOrdering Facility: [facility] Address: [address] [place] [address] Performed By: #### 5 7021-8 ####[facility] [id number] [place] [address] [place] MCHC (RBC) [Mass/Vol] 35.0 g/dL Normal 30.5-36.0 [facility] Comment on above: Order Comment: Speci men Type: BLOOD SPECIMENOrdering Facility: [facility] Address: [address] [place] [address] Performed By: #### 5 7021-8 ####[facility] [id number] [place] [address] [place] MCV (RBC) [Entitic vol] 91.2 fL Normal 80.0-100.0 C [facility] Comment on above: Order Comment: Speci men Type: BLOOD SPECIMENOrdering Facility: [facility] Address: [address] [place] [address] Performed By: #### 5 7021-8 ####[facility] [id number] [place] [address] [place] Monocytes (Bld) [#/Vol] 0.46 10*3/uL Normal <0.87 [facility] Comment on above: Order Comment: Speci men Type: BLOOD SPECIMENOrdering Facility: [facility] Address: [address] [place] [address] Performed By: #### 5 7021-8 ####[facility] [id number] [place] [address] [place] Monocytes/100 WBC (Bld) 6.9 % Normal [facility] Comment on above: Order Comment: Speci men Type: BLOOD SPECIMENOrdering Facility: [facility] Address: [address] [place] [address] Performed By: #### 5 7021-8 ####[facility] [id number] [place] [address] [place] Neutrophils (Bld) [#/Vol] 4.04 10*3/uL Normal 1.45-7.50 [facility] Comment on above: Order Comment: Speci men Type: BLOOD SPECIMENOrdering Facility: [facility] Address: [address] [place] [address] Performed By: #### 5 7021-8 ####[facility] [id number] [place] [address] [place] Neutrophils/100 WBC (Bld) 60.7 % Normal [facility] Comment on above: Order Comment: Speci men Type: BLOOD SPECIMENOrdering Facility: [facility] Address: [address] [place] [address] Performed By: #### 5 7021-8 ####[facility] [id number] [place] [address] [place] Nucleated RBC (Bld) [#/Vol] 10*3/uL Normal <0.01 [facility] Comment on above: Order Comment: Speci men Type: BLOOD SPECIMENOrdering Facility: [facility] Address: [address] [place] [address] Performed By: #### 5 7021-8 ####[facility] [id number] [place] [address] [place] Nucleated RBC/100 WBC (Bld) [Ratio] 0.0 /100 WBC Normal [facility] Comment on above: Order Comment: Speci men Type: BLOOD SPECIMENOrdering Facility: [facility] Address: [address] [place] [address] Performed By: #### 5 7021-8 ####[facility] [id number] [place] [address] [place] Platelet mean volume (Bld) [Entitic vol] 10.9 fL Normal 9.0-12.7 [facility] Comment on above: Order Comment: Speci men Type: BLOOD SPECIMENOrdering Facility: [facility] Address: [address] [place] [address] Performed By: #### 5 7021-8 ####[facility] [id number] [place] [address] [place] Platelets (Bld) [#/Vol] 247 10*3/uL Normal 150-400 [facility] Comment on above: Order Comment: Speci men Type: BLOOD SPECIMENOrdering Facility: [facility] Address: [address] [place] [address] Performed By: #### 5 7021-8 ####[facility] [id number] [place] [address] [place] RBC (Bld) [#/Vol] 4.64 10*6/uL Normal 3.90-5.20 [facility] Comment on above: Order Comment: Speci men Type: BLOOD SPECIMENOrdering Facility: [facility] Address: [address] [place] [address] Performed By: #### 5 7021-8 ####[facility] [id number] [place] [address] [place] WBC (Bld) [#/Vol] 6.67 10*3/uL Normal 3.70-11.00 [facility] Comment on above: Order Comment: Speci men Type: BLOOD SPECIMENOrdering Facility: [facility] Address: [address] [place] [address] Performed By: #### 5 7021-8 ####[facility] [id number] [address] OF [facility] CNOVon 02-20-2025 CNOV Office Visit (CARCMN) ANGELITA MARLEY ([id number]) 1995 F Date Time Provider Department 02/20/25 12:45 PM MARSHALL TRAN CARCMN During your visit today, we recorded the following information about you: Pulse Respiration Blood pressure Weight 69/minute 14/minute 110/73 69.4 kg Height 1.581 m Marshall Tran MD 02/22/2025 4:10 PM [facility] [place] [facility] OUTPATIENT VISIT DATE February 20, 2025 OUTPATIENT VISIT TYPE NEW PRIMARY CARE PHYSICIAN: Cecile Luis [address] [place] [address] REFERRING PHYSICIAN: Marshall Tran [address] [place], [place] [id number] CHIEF COMPLAINT: PFO CONGENITAL CARDIAC HISTORY: PFO 10/2024 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 Navarrete Previously on combined OCPs 4 years prior to stroke INTERVAL HISTORY: The pateint presents today to establish care in the setting of a recently diagnosed PFO. Reports significant shortness of breath (with 1.5 flights of stairs) that has worsened over time. Started in October after stroke. Shortness of Breath is relieved by rest. Reports that she also has right sided ear ringing that has worsened since her stroke. Reports orthostatic dizziness. Reports that she has chest heaviness with sitting in certain positions and with increased activity. This is better with stretching out. Reports palpitations (racing heart beat) with exercise, standing, quick movements (multiple times per day, lasting 1-2 minutes, resolving spontaneously or with changing positions). Also reports concurrent feeling of a bubble that goes up her neck. Reports new constipation. Reports decreased appetite since stroke. Reports LE edema that is dependent LE edema. Reports that she last weekend, she was walking with her , felt quite fatigued and dizziness along with ringing in her ears and then had a syncopal episode for a couple seconds, fell. Her picked her up. She felt tired but overall okay so she did not present to the ER. She has a history of syncope in the past with fracturing her coccyx last year and once before in early adulthood (does not remember the circumstances). Denied fever, chills, cough, cold, congestion, orthopnea, paroxysmal nocturnal dyspnea, , nausea, vomiting, diarrhea, constipation, abdominal pain, bloating/distention, diaphoresis, syncope. Has 2 children (6 and 4.5 yo boys), no issues with either , and both born full term. 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 Marley is a 29 year old female from [place], [place] here today for cardiovascular evaluation related to PFO. Angelita has a significant medical history of significant for asthma, anxiety, and depression. PAST MEDICAL HISTORY Diagnosis Date anxiety Asthma (HCC) sports induced. No attacks since age 16 depression PAST SURGICAL HISTORY Procedure Laterality Date INSERTION OF IUD 07/15/2020 Mirena PAST SURGICAL HISTORY OF wisdom teeth and root canal PAST SURGICAL HISTORY OF Right 03/09/2023 Heel spur removed and tendon cut for plantar fasciitis SOCIAL HISTORY[1] FAMILY HISTORY Problem Relation Age of Onset Asthma Mother other (Other tachycardia) Mother other (Other, hernia surgery) Father other (Other irregular heart rate) Father No Known Problems Sister Asthma Sister No Known Problems Brother Asthma Brother Cancer Maternal Grandmother skin cancer No Known Problems Maternal Grandfather Heart Paternal Grandmother other (benign tumor of ear) Paternal Grandmother No Known Problems Paternal Grandfather No Known Problems Son Heart Attack Maternal Uncle 37 Heart Attack Maternal Uncle ALLERGIES Allergen Reactions Amoxicillin Unknown When she was a child Dicyclomine Intolerance Patient reports causes migraines Seasonal Allergies Itching MEDICATIONS: topiramate (TOPAMAX) 50 mg tablet Take 1 tablet by mouth two times a day. traZODone (DESYREL) 100 mg tablet Take 1 tablet by mouth at bedtime as needed. ACETAMINOPHEN PO Take 1 dose by mouth as needed. Aspirin 81 mg tab Take 1 mg by mouth once daily. metoprolol tartrate, short acting, (LOPRESSOR) 50 mg tablet Take one 50 mg tablet the evening prior to the CTA examination, take another 50 mg tablet the morning of the CTA examination. nitroglycerin sublingual (NITROQUICK) 0.3 mg SL tablet (more content not included)... Normal [facility] Comprehensive metabolic 2000 panelon 02-20-2025 Albumin [Mass/Vol] 4.5 g/dL Normal 3.9-4.9 [facility] Comment on above: Order Comment: Maggiei katlin Type: BLOOD SPECIMENOrdering Facility: [facility] Address: [address] [place] [address] Performed By: #### 2 4323-8, 18427-7, 87243-2 ####[facility] [id number] [place] [address] [place] ALP [Catalytic activity/Vol] 63 U/L Normal 34-123 [facility] Comment on above: Order Comment: Maggiei men Type: BLOOD SPECIMENOrdering Facility: [facility] Address: [address] [place] [address] Performed By: #### 2 4323-8, 48882-0, 45644-4 ####[facility] [id number] [place] [address] [place] ALT [Catalytic activity/Vol] 18 U/L Normal 7-38 [facility] Comment on above: Order Comment: Speci men Type: BLOOD SPECIMENOrdering Facility: [facility] Address: [address] [place] [address] Performed By: #### 2 4323-8, 87625-6, 60517-7 ####[facility] [id number] [place] [address] [place] Anion gap [Moles/Vol] 12 mmol/L Normal 8-15 [facility] Comment on above: Order Comment: Speci men Type: BLOOD SPECIMENOrdering Facility: [facility] Address: [address] [place] [address] Performed By: #### 2 4323-8, 84251-8, 87037-3 ####[facility] [id number] [place] [address] [place] AST [Catalytic activity/Vol] 20 U/L Normal 13-35 [facility] Comment on above: Order Comment: Speci men Type: BLOOD SPECIMENOrdering Facility: [facility] Address: [address] [place] [address] Performed By: #### 2 4323-8, 78851-8, 61664-6 ####[facility] [id number] [place] [address] [place] Bilirubin [Mass/Vol] 1.7 mg/dL High 0.2-1.3 [facility] Comment on above: Order Comment: Speci men Type: BLOOD SPECIMENOrdering Facility: [facility] Address: [address] [place] [address] Performed By: #### 2 4323-8, 02881-8, 55918-0 ####[facility] [id number] [place] [address] [place] Calcium [Mass/Vol] 9.3 mg/dL Normal 8.5-10.2 [facility] Comment on above: Order Comment: Speci men Type: BLOOD SPECIMENOrdering Facility: [facility] Address: [address] [place] [address] Performed By: #### 2 4323-8, 53771-0, 19629-3 ####[facility] [id number] [place] [id number] [place] Chloride [Moles/Vol] 104 mmol/L Normal 98-107 [facility] Comment on above: Order Comment: Speci men Type: BLOOD SPECIMENOrdering Facility: [facility] Address: [address] [place] [address] Performed By: #### 2 4323-8, 54583-6, 71087-2 ####[facility] [id number] [place] [address] [place] CO2 [Moles/Vol] 22 mmol/L Normal 22-30 [facility] Comment on above: Order Comment: Speci men Type: BLOOD SPECIMENOrdering Facility: [facility] Address: [address] [place] [address] Performed By: #### 2 4323-8, 05316-3, 12470-8 ####[facility] [id number] [place] [address] [place] Creatinine [Mass/Vol] 0.74 mg/dL Normal 0.58-0.96 [facility] Comment on above: Order Comment: Speci men Type: BLOOD SPECIMENOrdering Facility: [facility] Address: [address] [place] [address] Performed By: #### 2 4323-8, 32836-2, 96318-3 ####[facility] [id number] [place] [address] [place] eGFRcr SerPlBld CKD-EPI 2020 112 mL/min/1.73m??? Normal >=60 [facility] Comment on above: Order Comment: Speci men Type: BLOOD SPECIMENOrdering Facility: [facility] Address: [address] [place] [address] Result Comment: Xavier mated Glomerular Filtration Rate (eGFR) is calculated using the 2020 CKD-EPI creatinine equation. This equation utilizes serum creatinine, sex, and age as parameters. The creatinine assay has traceable calibration to isotope dilution-mass spectrometry. Refer to KDIGO guidelines for clinical interpretation. In patients with unstable renal function, e.g. those with acute kidney injury, the eGFR may not accurately reflect actual GFR. Performed By: #### 2 4323-8, 68034-7, 87389-8 ####[facility] [id number] [place] [id number] [place] Glucose [Mass/Vol] 78 mg/dL Normal 74-99 [facility] Comment on above: Order Comment: Speci men Type: BLOOD SPECIMENOrdering Facility: [facility] Address: [address] [place] [address] Result Comment: The [place] Diabetes Association (ADA) provides guidance for cutoff values for fasting glucose and random glucose. The ADA defines fasting as no caloric intake for at least 8 hours. Fasting plasma glucose results between 100 to 125 mg/dL indicate increased risk for diabetes (prediabetes). Fasting plasma glucose results greater than or equal to 126 mg/dL meet the criteria for diagnosis of diabetes. In the absence of unequivocal hyperglycemia, results should be confirmed by repeat testing. In a patient with classic symptoms of hyperglycemia or hyperglycemic crisis, random plasma glucose results greater than or equal to 200 mg/dL meet the criteria for diagnosis of diabetes. Reference: Standards of Medical Care in Diabetes 2016, [place] Diabetes Association. Diabetes Care. 2016.39(Suppl 1). Performed By: #### 2 4323-8, 04060-9, 26124-2 ####[facility] [id number] [place] [id number] [place] Potassium [Moles/Vol] 4.7 mmol/L Normal 3.7-5.1 [facility] Comment on above: Order Comment: Speci men Type: BLOOD SPECIMENOrdering Facility: [facility] Address: [address] [place] [address] Performed By: #### 2 4323-8, 10991-4, 84707-7 ####[facility] [id number] [place] [address] [place] Protein [Mass/Vol] 7.1 g/dL Normal 6.3-8.0 [facility] Comment on above: Order Comment: Speci men Type: BLOOD SPECIMENOrdering Facility: [facility] Address: [address] [place] [address] Performed By: #### 2 4323-8, 12836-3, 89711-6 ####[facility] [id number] [place] [address] [place] Sodium [Moles/Vol] 138 mmol/L Normal 136-144 [facility] Comment on above: Order Comment: Speci men Type: BLOOD SPECIMENOrdering Facility: [facility] Address: [address] [place] [address] Performed By: #### 2 4323-8, 95592-2, 95578-8 ####[facility] [id number] [place] [address] [place] Urea nitrogen [Mass/Vol] 12 mg/dL Normal 7-21 [facility] Comment on above: Order Comment: Speci men Type: BLOOD SPECIMENOrdering Facility: [facility] Address: [address] [place] [address] Performed By: #### 2 4323-8, 12417-0, 57233-9 ####[facility] [id number] [place] [address] [place] ECHO SPECIALIST COMPLEX ADUL T CONGENITALon 02-20-2025 ECHO SPECIALIST COMPLEX ADULT CONGENITAL Echocardiography Report: [facility] SAGE-2 Date of service: 02/20/2025 9:48:45 AM LINE [facility] Ordering physician: MARSHALL TRAN Exam indication: PFO Technologist: Lona Mims Interpreting physician: Marshall Tran MD PATIENT: Name: MS. ANGELITA MARLEY : 1995 Age: 29 years Gender: F Primary rhythm: sinus. Height: 157.50 cm BSA: 1.78 m Weight: 72.58 kg BMI: 29.3 kg/m Heart rate 52 bpm Color Doppler was utilized to interrogate the cardiac valves assessed and spectral Doppler was utilized to determine the flow velocities and pressure gradients reported in this exam. MEASUREMENTS: Value Indexed Normal LV ID (diastole) 4.2 cm (2D) 2.36 cm/m LV ID (systole) 2.3 cm (2D) 1.29 cm/m IVS, leaflet tips 0.8 cm (2D) Posterior wall thickness 0.8 cm (2D) Left ventricular mass 101 g (2D) 57 g/m LV stroke volume 53 ml (2D biplane) LV end diastolic volume 86 ml (2D biplane) 48.1 ml/m 29<=EDVi<62 LV end systolic volume 32 ml (2D biplane) 18.2 ml/m Ejection Fraction 62 % (2D biplane) EF > 54 FINDINGS: LEFT VENTRICLE The left ventricle is normal in size. Left ventricular systolic function is normal. Wall Motion: All scored segments are normal. RIGHT VENTRICLE The right ventricle is normal in size. Right ventricular systolic function is normal. Estimated right ventricular systolic pressure is likely underestimated due to a weak or incomplete tricuspid regurgitation signal and is, at least, 20 mmHg consistent with normal pulmonary artery pressures. Estimated right atrial pressure is 3 mmHg based on IVC assessment. RIGHT ATRIUM Inferior Vena Cava: The inferior vena cava appears normal measuring 1.10 cm. The vessel decreases greater than 50 percent with inspiration. MITRAL VALVE There is trace mitral valve regurgitation. There is no thickening. TRICUSPID VALVE There is trace tricuspid valve regurgitation. There is no thickening. AORTIC VALVE There is trace aortic valve regurgitation. Tricuspid aortic valve. There is no thickening. PULMONIC VALVE There is trace pulmonic valve regurgitation. There is no thickening. INTERATRIAL SEPTUM There is evidence of a left to right shunt as detected by Doppler. PERICARDIUM There is no pericardial effusion. CONCLUSIONS: - Exam indication: PFO - The left ventricle is normal in size. Left ventricular systolic function is normal. EF = 62 5% (2D biplane) - The right ventricle is normal in size. Right ventricular systolic function is normal. - Estimated right ventricular systolic pressure is likely underestimated due to a weak or incomplete tricuspid regurgitation signal and is, at least, 20 mmHg consistent with normal pulmonary artery pressures. Estimated right atrial pressure is 3 mmHg based on IVC assessment. - There is a small [id number] atrial shunt observed by color Doppler (clips 71-81). - Exam was compared with the prior CC echocardiographic exam performed on 12/05/24. Atrial shunt observed today. Final CC [employer] [facility] : [id number]. [id number] DynamicsSISUID See Link below for Image Normal [facility] Lipid 1996 panelon 5 Cholesterol [Mass/Vol] 176 mg/dL Normal <200 [facility] Comment on above: Order Comment: Speci men Type: BLOOD SPECIMENOrdering Facility: [facility] Address: [address] [place] [address] Result Comment: <200 mg/dL, Desirable 200-239 mg/dL, Borderline high >239 mg/dL, High Performed By: #### 2 4323-8, 86673-9, 42419-3 ####[facility] [id number] [place] [address] [place] Cholesterol in HDL [Mass/Vol] 49 mg/dL Normal >39 [facility] Comment on above: Order Comment: Maggiei katlin Type: BLOOD SPECIMENOrdering Facility: [facility] Address: [address] [place] [address] Result Comment: 40-5 9 mg/dL, Acceptable >59 mg/dL, High: Negative risk factor for coronary heart disease <40 mg/dL, Low: Positive risk factor for coronary heart disease Performed By: #### 2 4323-8, 72700-8, 00531-2 ####[facility] [id number] [place] [address] [place] Cholesterol in LDL [Mass/Vol] 115 mg/dL High <100 [facility] Comment on above: Order Comment: Maggiei men Type: BLOOD SPECIMENOrdering Facility: [facility] Address: [address] [place] [address] Result Comment: <100 mg/dL, Optimal 100-129 mg/dL, Near optimal/above optimal 130-159 mg/dL, Borderline high 160-189 mg/dL, High >189 mg/dL, Very high Secondary prevention optimal LDL Cholesterol levels are recommended to be <70 mg/dL LDL cholesterol is calculated using the Staples-NIH equation. Performed By: #### 2 4323-8, 93776-8, 32895-6 ####[facility] [id number] [place] [address] [place] Cholesterol in LDL/Cholesterol in HDL [Mass ratio] 2.35 {ratio} Normal <2.54 [facility] Comment on above: Order Comment: Speci men Type: BLOOD SPECIMENOrdering Facility: [facility] Address: [address] [place] [address] Result Comment: Dario sherman: 1. National Cholesterol Education Program ATP III Guideline At-A-Glance Quick Desk Reference: National Heart, Lung, and Blood [place]. National Institutes of Health. 2001: NIH Publication No. 01-3305. 2. An International Atherosclerosis Society position paper: global recommendations for the management of dyslipidemia: executive summary, Atherosclerosis. 2014: 232(2):410-413. Performed By: #### 2 4323-8, 73821-0, 47128-8 ####[facility] [id number] [place] [id number] [place] Cholesterol in VLDL [Mass/Vol] 11 mg/dL Normal <30 [facility] Comment on above: Order Comment: Leona dalal Type: BLOOD SPECIMENOrdering Facility: [facility] Address: [address] [place] [address] Performed By: #### 2 4323-8, 35984-0, 79857-0 ####[facility] [id number] [place] [address] [place] Cholesterol non HDL [Mass/Vol] 127 mg/dL Normal <130 [facility] Comment on above: Order Comment: Leona men Type: BLOOD SPECIMENOrdering Facility: [facility] Address: [address] [place] [address] Result Comment: <130 mg/dL, Optimal 130-159 mg/dL, Near optimal/above optimal 160-189 mg/dL, Borderline high 190-219 mg/dL, High >219 mg/dL, Very high Secondary prevention optimal non HDL Cholesterol levels are recommended to be <100 mg/dL Performed By: #### 2 4323-8, 59949-1, 06519-5 ####[facility]IA [id number] [address] OF [facility] Cholesterol.total/Choles terol in HDL [Mass ratio] 3.59 {ratio} Normal <5.10 [facility] Comment on above: Order Comment: Speci men Type: BLOOD SPECIMENOrdering Facility: [facility] Address: [address] [place] [address] Performed By: #### 2 4323-8, 02169-2, 98915-8 ####[facility] LABCLIA [id number] [address] FASTING TIME 12 hrs Normal [facility] Comment on above: Order Comment: Speci men Type: BLOOD SPECIMENOrdering Facility: [facility] Address: [address] [place] [address] Performed By: #### 2 4323-8, 36974-6, 32692-7 ####[facility]CLIA [id number] [address] Triglyceride [Mass/Vol] 64 mg/dL Normal <150 [facility] Comment on above: Order Comment: Speci men Type: BLOOD SPECIMENOrdering Facility: [facility] Address: [address] [place] [address] Result Comment: <150 mg/dL, Normal 150-199 mg/dL, Borderline high 200-499 mg/dL, High >499 mg/dL, Very high Performed By: #### 2 4323-8, 07956-6, 27823-0 ####[facility]IA [id number] [address] [place] NT-proBNP [place] 02-20 Natriuretic peptide.B prohormone N-Terminal [Mass/Vol] 56 pg/mL Normal <125 [facility] Comment on above: Order Comment: Speci men Type: BLOOD SPECIMENOrdering Facility: [facility] Address: [address] [place] [address] Performed By: #### 2 4323-8, 27758-3, 49062-2 ####[facility] LABCLIA [id number] [place] [address] [place] XR CHEST 2V FRONTAL/LATon XR CHEST 2V FRONTAL/LAT * * *Final Repor t* * * DATE OF EXAM: Feb 20 2025 10:34AM JIX [id number] - XR CHEST 2V FRONTAL/LAT / PROCEDURE REASON: Congenital cardiovascular disorder (HCC) * * * * Physician Interpretation * * * * EXAMINATION: CHEST RADIOGRAPH (2 VIEW FRONTAL and LATERAL) CLINICAL HISTORY: Congenital cardiovascular disorder (HCC) MQ: XC2_6 EXAM DATE/TIME: 02/20/2025 10:34 AM COMPARISON: PA and lateral CXR 11/12/2024 RESULT: Lines, tubes, and devices: None. Lungs and pleura: The lungs appear clear of consolidation. No pleural effusion or pneumothorax is identified. Cardiomediastinal silhouette: Stable cardiomediastinal silhouette. The heart size and pulmonary vascular pattern are within normal limits. Bones and soft tissues: The vertebral body heights appear symmetric and well-maintained. IMPRESSION: No acute disease identified in the lungs or mediastinum. Little interval change since 11/12/2024. Funeral Pre Arrangement Specialist: ERIC Transcribe Date/Time: Feb 21 2025 3:41P Dictated by : MODESTO SEWELL MD This examination was interpreted and the report reviewed and electronically signed by: MODESTO SEWELL MD on Feb 21 2025 3:42PM EST [id number] Normal [facility] CT HEAD OR BRAIN WITHOUT CON TRASTon 02-06-2025 CT HEAD OR BRAIN WITHOUT CONTRAST EXAMINATION: CT HEAD OR BRAIN WITHOUT CONTRAST HISTORY: weakness and numbness Injury/Trauma or Illness?:Illness/Oth er How long have you had these symptoms (acute/chronic)?:Acu te Reason for exam?:weakness and numbness Type of Exam?:Initial Additional signs and symptoms?:Shaking; Hypotension; Headache COMPARISON: CTA head and neck 04/04/2023 TECHNIQUE: Axial noncontrast CT imaging of the head was performed with coronal and sagittal reformats. Dose reduction techniques were achieved by using automated exposure control and/or adjustment of mA and/or kV according to patient size and/or use of iterative reconstruction technique. FINDINGS: Calvarium/skull base: No evidence of acute fracture or destructive lesion.Mastoids and middle ears demonstrate no substantial mucosal disease. Paranasal sinuses: No air fluid levels. Brain: No acute intracranial hemorrhage. No acute large vascular territory infarct. Midline structures are appropriately formed. No mass lesion or mass effect.No hydrocephalus. IMPRESSION: No acute intracranial process. Workstation ID: [id number] Dictated by: LETICIA CELIS on TueFeb 06, 2025 2:10:13 PM EDT Transcribed by: LETICIA CELIS on TueFeb 06, 2025 2:10:13 PM EDT Finalized by: LETICIA CELIS on TueFeb 06, 2025 2:10:13 PM EDT [facility] Comment on above: Order Comment: Injur y/Trauma or Illness?:Illness/Other How long have you had these symptoms (acute/chronic)?:Acute Reason for exam?:weakness and numbness Type of Exam?:Initial Additional signs and symptoms?:Shaking; Hypotension; Headache ED Prov Noteon 02-06-2025 ED Prov Note [facility] ATTENDING NOTE: NAME: Angelita Marley CSN: [id number] 29 y.o. PCP: No, Physician History: Chief Complaint: Shaking, Hypotension, and Headache HPI: The history was obtained from the patient. Angelita is a 29 y.o. female who presents with a chief complaint of having symptoms as she is drowning this has been going for about 3 weeks feels really weak and also having some weakness in both the arms and numbness and tingling. No nausea no vomiting also has headache feels like a pressure similar to her migraine headaches. Previously was within normal. PMHx: Past Medical History: Diagnosis Date Anxiety Asthma as a child. exercise induced. Depression PMSx: Past Surgical History: Procedure Laterality Date HEEL SPUR RESECTION Right 03/09/2023 Procedure: Plantar Fasciotomy with Heel spur resection - RIGHT foot.; Surgeon: Gio Richardson DPM; [place] [facility] [place]: Podiatry WISDOM TOOTH EXTRACTION FAM. Hx: Family History Problem Relation Age of Onset No Known Problems Mother No Known Problems Father No Known Problems Sister No Known Problems Brother SOC. Hx: Social History [1] MEDs: Previous Medications Medication Sig aspirin 81 mg chewable tablet Chew and Swallow 1 (one) tablet (81 mg total) daily . atorvastatin (LIPITOR) 40 MG tablet Take 1 (one) tablet (40 mg total) by mouth daily . FLUoxetine (PROZAC) 20 MG capsule Take 1 (one) capsule (20 mg total) by mouth daily . metoprolol tartrate (LOPRESSOR) 50 MG tablet Take one 50 mg tablet the evening prior to the CTA examination, take another 50 mg tablet the morning of the CTA examination. omeprazole (PRILOSEC) 40 MG capsule Take 1 (one) capsule (40 mg total) by mouth daily . topiramate (TOPAMAX) 25 MG tablet Take 1 (one) tablet (25 mg total) by mouth 2 (two) times a day . traZODone (DESYREL) 50 MG tablet Take 2 (two) tablets (100 mg total) by mouth every night at bedtime . busPIRone (BUSPAR) 10 MG tablet Take 1 (one) tablet (10 mg total) by mouth 3 (three) times a day . (Patient not taking: Reported on 09/29/2023 .) diphenhydramine HCl (UNISOM SLEEPGELS ORAL) Take by mouth PRN . escitalopram oxalate (LEXAPRO) 10 MG tablet Take 1 (one) tablet (10 mg total) by mouth daily . (Patient not taking: Reported on 09/29/2023 .) ibuprofen (ADVIL,MOTRIN) 800 MG tablet Take 1 (one) tablet (800 mg total) by mouth every 6 (six) hours as needed for pain . prochlorperazine (Compazine) 10 MG tablet Take 1 (one) tablet (10 mg total) by mouth every 6 (six) hours as needed for nausea . UNABLE TO FIND OTC Allergy Medication PRN . ALL: Allergies[2] ROS: Review of Systems Positives and pertinent negatives as per HPI. All other systems were reviewed and are negative. Physical Exam: Patient Vitals for the past 24 hrs: BP Temp Pulse Resp SpO2 Height Weight 02/06/25 1327 (!) 138/97 98 degrees F (36.7 degrees C) 79 16 98 % 5' 2 70.3 kg (155 lb) Physical Exam Vitals and nursing note reviewed. HENT: Head: Normocephalic and atraumatic. Nose: Nose normal. Eyes: General: Lids are normal. No scleral icterus. Cardiovascular: Rate and Rhythm: Normal rate and regular rhythm. Heart sounds: Normal heart sounds. Pulmonary: Effort: No accessory muscle usage. Breath sounds: Normal breath sounds. Skin: General: Skin is warm and dry. Neurological: General: No focal deficit present. Mental Status: She is alert and oriented to person, place, and time. Cranial Nerves: No cranial nerve deficit. Sensory: No sensory deficit. Motor: Motor function is intact. No weakness. Coordination: Coordination normal. Gait: Gait normal. Psychiatric: Mood and Affect: Mood normal. Behavior: Behavior is cooperative. Laboratory & Radiological Imaging (if done): Labs Reviewed POC BASIC METABOLIC PANEL - RALS - Abnormal; Notable for the following components: Result Value Glucose 147 (*) All other components within normal limits Narrative: [facility] has implemented the eGFR calculation approach that does not have a coefficient for race that conforms to the NKF-ASN Task Force Recommendations. POC TROPONIN I RALS - Normal POC CBC AND DIFFERENTIAL POC BASIC METABOLIC PANEL POC TROPONIN I CT Head Or Brain Without Contrast Final Result No acute intracranial process. Workstation ID: [id number] XR Chest 1 View Final Result No acute cardiopulmonary process. Workstation ID: [id number] Procedures: ECG 12- Lead Date/Time: 02/06/2025 1:46 PM Performed by: Lolly Arrington MD Authorized by: Lolly Arrington MD Interpreted by ED attending physician Rhythm: sinus rhythm BPM: 82 Conduction: conduction normal ST Segments: ST segments normal ED Course / Medical Decision Making: I did personally review Angelita's past medical history, surgical history, social history, as well as family history (when relevant). In this case, I al (more content not included)... Normal [facility] POC BASIC METABOLIC PANEL - RALSon 02-06-2025 Chloride [Moles/Vol] 105 mmol/L Normal 98-108 [facility] Comment on above: Order Comment: [facility] has implemented the eGFR calculation approach that does not have a coefficient for race that conforms to the NKF-ASN Task Force Recommendations. CO2 [Moles/Vol] 26 mmol/L Normal 21-32 [facility] Comment on above: Order Comment: [facility] has implemented the eGFR calculation approach that does not have a coefficient for race that conforms to the NKF-ASN Task Force Recommendations. Creatinine [Mass/Vol] 0.79 mg/dL Normal 0.40-1.10 [facility] Comment on above: Order Comment: [facility] has implemented the eGFR calculation approach that does not have a coefficient for race that conforms to the NKF-ASN Task Force Recommendations. Glucose [Mass/Vol] 147 mg/dL High 65-99 [facility] Comment on above: Order Comment: [facility] has implemented the eGFR calculation approach that does not have a coefficient for race that conforms to the NKF-ASN Task Force Recommendations. POC GFR 103 mL/min/1.73 m2 Normal >=60 [facility] Comment on above: Order Comment: [facility] has implemented the eGFR calculation approach that does not have a coefficient for race that conforms to the NKF-ASN Task Force Recommendations. Result Comment: Xavier mated GFR was calculated using the 2020 CKD-EPI creatinine equation. POC IONIZED CALCIUM 4.9 mg/dL Normal 4.5-5.3 [facility] Comment on above: Order Comment: [facility] has implemented the eGFR calculation approach that does not have a coefficient for race that conforms to the NKF-ASN Task Force Recommendations. Potassium [Moles/Vol] 3.5 mmol/L Normal 3.5-5.1 [facility] Comment on above: Order Comment: [facility] has implemented the eGFR calculation approach that does not have a coefficient for race that conforms to the NKF-ASN Task Force Recommendations. Sodium [Moles/Vol] 141 mmol/L Normal 135-145 [facility] Comment on above: Order Comment: [facility] has implemented the eGFR calculation approach that does not have a coefficient for race that conforms to the NKF-ASN Task Force Recommendations. Urea nitrogen [Mass/Vol] 9 mg/dL Normal 8-25 [facility] Comment on above: Order Comment: [facility] has implemented the eGFR calculation approach that does not have a coefficient for race that conforms to the NKF-ASN Task Force Recommendations. POC CBC AND DIFFERENTIALon BASOPHILS ABSOLUTE COUNT 0.03 K/mcL Normal 0.00-0.30 [facility] Basophils/100 WBC (Bld) 0.4 % Normal [facility] Eosinophils (Bld) [#/Vol] 0.14 10*3/uL Normal 0.00-0.50 [facility] Eosinophils/100 WBC (Bld) 1.8 % Normal [facility] Erythrocyte distribution width (RBC) [Ratio] 12.2 % Normal 11.6-14.8 [facility] Hematocrit (Bld) [Volume fraction] 38.8 % Normal 36.0-46.0 [facility] Hemoglobin (Bld) [Mass/Vol] 13.6 g/dL Normal 12.0-16.0 [facility] IG ABSOLUTE 0.00 K/mcL Normal 0.00-0.30 [facility] IG PERCENT 0.00 % Normal [facility] Comment on above: Result Comment: The IG parameter is the percentage of metamyelocytes, myelocytes and promyelocytes. An immature granulocyte count (IG) of 1% or more suggests the possibility of infection, an IG count of 3% is very likely related to an infection. Lymphocytes (Bld) [#/Vol] 2.51 10*3/uL Normal 0.90-4.00 [facility] Lymphocytes/100 WBC (Bld) 32.9 % Normal [facility] MCH (RBC) [Entitic mass] 31.9 pg Normal 26.0-34.0 [facility] MCV (RBC) [Entitic vol] 91.1 fL Normal 80.0-100.0 [facility] MEAN CORPUSCULAR HEMOGLOBIN CONC 35.1 g/dL Normal 31.0-37.0 [facility] Monocytes (Bld) [#/Vol] 0.46 10*3/uL Normal 0.30-0.90 [facility] Monocytes/100 WBC (Bld) 6.0 % Normal [facility] NEUTROPHILS ABSOLUTE COUNT 4.50 K/mcL Normal 1.70-7.00 [facility] Neutrophils/100 WBC (Bld) 58.9 % Normal [facility] Platelet mean volume (Bld) [Entitic vol] 10.5 fL Normal 9.4-12.4 [facility] Platelets (Bld) [#/Vol] 233 10*3/uL Normal 150-400 [facility] RBC (Bld) [#/Vol] 4.26 10*6/uL Normal 4.00-5.20 [facility] WBC (Bld) [#/Vol] 7.64 10*3/uL Normal 4.50-11.00 [facility] POC TROPONIN I Bipin 2024 POC TROPONIN I < Normal <0.05 [facility] XR CHEST PA/APon 02-06-2025 XR CHEST PA/AP EXAMINATION: XR CHEST PA/AP HISTORY: ORDERING SYSTEM PROVIDED HISTORY: weak, TECHNOLOGIST PROVIDED HISTORY: Illness/Other Reason for exam: weak Cancer History: no Surgery, RadiationHistory: no Encounter Type: Initial Additional signs and symptoms: Shaking; Hypotension; Headache ORDERING SYSTEM PROVIDED DIAGNOSIS CODES: COMPARISON: 10/11/2024 FINDINGS: One-view chest x-ray. No pneumothorax, pleural effusion or focal airspace consolidation. Heart is normal in size. Bony thorax is unremarkable. IMPRESSION: No acute cardiopulmonary process. Workstation ID: [id number] Dictated by: OLMAN ACEVEDO on TueFeb 06, 2025 2:16:24 PM EDT Transcribed by: OLMAN ACEVEDO on TueFeb 06, 2025 2:16:24 PM EDT Finalized by: OLMAN ACEVEDO on TueFeb 06, 2025 2:16:24 PM EDT [facility] Comment on above: Order Comment: [facility] has implemented the eGFR calculation approach that does not have a coefficient for race that conforms to the NKF-ASN Task Force Recommendations. Raymundo 01-30-2025 NOMIN Telephone (CARCMN) ANGELITA MARLEY ([id number]) 1995 F Date Time Provider Department 01/30/25 [facility] PROVIDER CARCDELVIS During your visit today, we recorded the following information about you: Anya Polk 01/30/2025 12:46 PM Signed Reminder has been placed in the mail of upcoming appointments. Anya Polk January 30, 2025 12:46 PM Allergies As of Date: 01/30/2025 Noted Allergy Reaction AMOXICILLIN 01/13/2018 16 - Unknown Comments: When she was a child DICYCLOMINE 09/22/2023 5 - Intolerance Comments: Patient reports causes migraines SEASONAL ALLERGIES 01/13/2018 9 - Itching Date Reviewed: 12/14/2024 Reviewed by: Claus Leonard MA - Fully Assessed Reason for Visit: Appointment [186] Prescriptions as of 01/30/2025 - topiramate (TOPAMAX) 50 mg tablet Take 1 tablet by mouth two times a day. - traZODone (DESYREL) 100 mg tablet Take 1 tablet by mouth at bedtime as needed. - ACETAMINOPHEN PO Take 1 dose by mouth as needed. - Aspirin 81 mg tab Take 1 mg by mouth once daily. - metoprolol tartrate, short acting, (LOPRESSOR) 50 mg tablet Take one 50 mg tablet the evening prior to the CTA examination, take another 50 mg tablet the morning of the CTA examination. - nitroglycerin sublingual (NITROQUICK) 0.3 mg SL tablet Dissolve 1 tablet under the tongue one time only for 1 dose. To be administered in Radiology for CTA exam - atorvastatin (LIPITOR) 40 mg tablet Take 1 tablet by mouth once daily. - FLUoxetine (PROZAC) 20 mg capsule Take 1 capsule by mouth once daily. - omeprazole (PRILOSEC) 20 mg capsule Take 1 capsule by mouth daily before breakfast. 1/2 hr before meal. - cetirizine (ZYRTEC) 10 mg tablet Take 10 mg by mouth as needed. - fluticasone (FLONASE ALLERGY RELIEF) 50 mcg/actuation nasal spray Use 1 [place] in each nostril two times a day. - diphenhydramine HCl (BENADRYL ORAL) Take 1 tablet by mouth as needed. Problem List As Of Date 01/30/2025 Noted Resolved History of anxiety [Z86.59] 05/25/2018 Genetic testing [Z13.79] 05/25/2018 06/22/2018 Encounter for ultrasound [Z36.9] 05/25/2018 06/22/2018 Asthma complicating in first trimeste*05/25/2018 06/12/2020 Encounter for supervision of normal first pregn*09/22/2018 06/12/2020 Short interval between pregnancies affecting pr*09/13/2019 06/12/2020 History of depression [Z87.59, Z86.5*09/13/2019 06/12/2020 Encounter Status:Closed by ANYA POLK on 01/30/25 Normal [facility] CTA CORONARY W IVCONon 01-09 CTA CORONARY W IVCON * * *Final Report* * * DATE OF EXAM: Jan 09 2025 10:41AM [facility] [place] [facility] CORONARY W IVCON / PROCEDURE REASON: R07.89-Other chest pain * * * * Physician Interpretation * * * * CTA CORONARY ARTERIES Direct Image Comparison: none HISTORY: 29 years old Female patient with concern for CAD/anomalous coronaries. Evaluation for diagnostic clarification and further treatment options.. There is request to define coronary anatomy. TECHNIQUE: SCANNER: Multi-detector scanner PROTOCOL: Sequential imaging of the heart with prospective triggering in diastolic phase and submillimeter slice reconstruction following administration of contrast material. Scan Range: meryl to the base of the heart CT Dose-Length Product (DLP): 794 mGy*cm CT Dose Reduction Employed: Automated exposure control(AEC) and iterative recon CONTRAST: IV administration of 90 ml Omnipaque 350 Premedication per [facility] protocol/documentati on. Scan acquisition: uncomplicated Macro Version: MQ:CCTW_5 For optimization of anatomic evaluation, advanced 3-D off-line postprocessing was performed on a dedicated workstation by the interpreting physician. STUDY LIMITATIONS: None. RESULT: LINES, TUBES and DEVICES: None limited CHEST: visualized Chest wall anatomy: unremarkable. visualized LUNGS: unremarkable. visualized MEDIASTINUM: unremarkable. PERICARDIUM: unremarkable CENTRAL PULMONARY ARTERY: normal dimensions. Assessment is limited due to limited contrast enhancement. CARDIAC CHAMBERS: LEFT VENTRICLE: normal size RIGHT VENTRICLE: normal size Left atrium: normal size. Changes at the interatrial septum, consistent with PFO. JERZY: normal Right atrium: normal size CENTRAL VENOUS and PULMONARY VENOUS RETURN: normal. Coronary Sinus: normal size MITRAL VALVE: assessment is limited in the current study - no leaflet calcification. No annular calcification TRICUSPID and PULMONIC VALVE: appear unremarkable. AORTIC VALVE: appears trileaflet. No leaflet calcification. visualized AORTA: Pathology: No aortic pathology in limited visualized segments of the aorta, Intervention: None Complications: n/a Aortic Size: Normal size visualized thoracic aorta. STJ: maintained Wall Changes: no wall calcification. AORTIC DIMENSIONS: AORTIC ROOT: 3.7 cm measured [id number] mid ASCENDING THORACIC AORTA: 2.7 cm mid DESCENDING THORACIC AORTA: 1.7 cm CORONARY ANATOMY: normal origin of the coronary arteries. LEFT MAIN: Coronary Artery Normal sized vessel, which trifurcates into LAD, RI, and LCX. LM Stenosis and Plaque: No plaque or luminal stenosis. LAD: (Left Anterior Descending Coronary Artery) Normal size vessel, which wraps around the apex. Gives rise to 2 diagonal branches and small septal branches. LAD Stenosis and Plaque: No plaque or luminal stenosis. RAMUS INTERMEDIUS: Normal size vessel. RI Stenosis and Plaque: No plaque or luminal stenosis. LCX: (Left Circumflex Coronary Artery) Small size vessel, which is non-dominant. Gives rise to 1 lateral branch, and a posterolateral branch. LCX Stenosis and Plaque: No plaque or luminal stenosis. RCA: (Right Coronary Artery) Normal size vessel, which is dominant.. Gives rise to a conus branch, SA chris branch, 1 acute marginal branch. In its mid-distals segment it bifurcates into the PDA and PV branch. RCA Stenosis and Plaque: No plaque or luminal stenosis. limited upper ABDOMEN: unremarkable BONES and SOFT TISSUES: unremarkable, within limitations of the current study Loading Unit Operator Powder Charging (topogram) images: No additional findings. IMPRESSION: 1. Normal origin of the coronary arteries. - CAD-RADS 0: No plaque or luminal stenosis. Absence of CAD. - Overall Plaque [place]: No evidence of plaque - Clinical correlation is recommended 2. Left atrium: normal size. Changes at the interatrial septum, consistent with PFO.Correlation with echocardiography is recommended. 3. The thoracic aorta is normal in caliber, course and contour. Funeral Pre Arrangement Specialist: ERIC Transcribe Date/Time: Jan 09 2025 5:54P Dictated by : UNIQUE MACARIO MD This examination was interpreted and the report reviewed and electronically signed by: UNIQUE MACARIO MD on Jan 09 2025 10:28PM EST [id number] CN Normal [facility] CTA Heart and Coronary arter ies W contrast Estuardo 01-09-2025 IMPRESSION: 1. Normal origin of the coronary arteries. - CAD-RADS 0: No plaque or luminal stenosis. Absence of CAD. - Overall Plaque [place]: No evidence of plaque - Clinical correlation is recommended 2. Left atrium: normal size. Changes at the interatrial septum, consistent with PFO.Correlation with echocardiography is recommended. 3. The thoracic aorta is normal in caliber, course and contour. Funeral Pre Arrangement Specialist: PSCB Transcribe Date/Time: Jan 09 2025 5:54P Dictated by : UNIQUE MACARIO MD This examination was interpreted and the report reviewed and electronically signed by: UNIQUE MACARIO MD on Jan 09 2025 10:28PM [facility] * * *Final Report* * * DATE OF EXAM: Jan 09 2025 10:41AM [facility] [place] CORONARY W IVCON / PROCEDURE REASON: R07.89-Other chest pain * * * * Physician Interpretation * * * * CTA CORONARY ARTERIES Direct Image Comparison: none HISTORY: 29 years old Female patient with concern for CAD/anomalous coronaries. Evaluation for diagnostic clarification and further treatment options.. There is request to define coronary anatomy. TECHNIQUE: SCANNER: Multi-detector scanner PROTOCOL: Sequential imaging of the heart with prospective triggering in diastolic phase and submillimeter slice reconstruction following administration of contrast material. Scan Range: meryl to the base of the heart CT Dose-Length Product (DLP): 794 mGy*cm CT Dose Reduction Employed: Automated exposure control(AEC) and iterative recon CONTRAST: IV administration of 90 ml Omnipaque 350 Premedication per [facility] protocol/documentati on. Scan acquisition: uncomplicated Macro Version: [id number] For optimization of anatomic evaluation, advanced 3-D off-line postprocessing was performed on a dedicated workstation by the interpreting physician. STUDY LIMITATIONS: None. RESULT: LINES, TUBES and DEVICES: None limited CHEST: visualized Chest wall anatomy: unremarkable. visualized LUNGS: unremarkable. visualized MEDIASTINUM: unremarkable. PERICARDIUM: unremarkable CENTRAL PULMONARY ARTERY: normal dimensions. Assessment is limited due to limited contrast enhancement. CARDIAC CHAMBERS: LEFT VENTRICLE: normal size RIGHT VENTRICLE: normal size Left atrium: normal size. Changes at the interatrial septum, consistent with PFO. JERZY: normal Right atrium: normal size CENTRAL VENOUS and PULMONARY VENOUS RETURN: normal. Coronary Sinus: normal size MITRAL VALVE: assessment is limited in the current study - no leaflet calcification. No annular calcification TRICUSPID and PULMONIC VALVE: appear unremarkable. AORTIC VALVE: appears trileaflet. No leaflet calcification. visualized AORTA: Pathology: No aortic pathology in limited visualized segments of the aorta, Intervention: None Complications: n/a Aortic Size: Normal size visualized thoracic aorta. STJ: maintained Wall Changes: no wall calcification. AORTIC DIMENSIONS: AORTIC ROOT: 3.7 cm measured [id number] mid ASCENDING THORACIC AORTA: 2.7 cm mid DESCENDING THORACIC AORTA: 1.7 cm CORONARY ANATOMY: normal origin of the coronary arteries. LEFT MAIN: Coronary Artery Normal sized vessel, which trifurcates into LAD, RI, and LCX. LM Stenosis and Plaque: No plaque or luminal stenosis. LAD: (Left Anterior Descending Coronary Artery) Normal size vessel, which wraps around the apex. Gives rise to 2 diagonal branches and small septal branches. LAD Stenosis and Plaque: No plaque or luminal stenosis. RAMUS INTERMEDIUS: Normal size vessel. RI Stenosis and Plaque: No plaque or luminal stenosis. LCX: (Left Circumflex Coronary Artery) Small size vessel, which is non-dominant. Gives rise to 1 lateral branch, and a posterolateral branch. LCX Stenosis and Plaque: No plaque or luminal stenosis. RCA: (Right Coronary Artery) Normal size vessel, which is dominant.. Gives rise to a conus branch, SA chris branch, 1 acute marginal branch. In its mid-distals segment it bifurcates into the PDA and PV branch. RCA Stenosis and Plaque: No plaque or luminal stenosis. limited upper ABDOMEN: unremarkable BONES and SOFT TISSUES: unremarkable, within limitations of the current study Loading Unit Operator Powder Charging (topogram) images: No additional findings. SHEVLIN RADIOLOGY Provider, [facility] [place] - 01/09/2025 * * *Final Report* * * DATE OF EXAM: Jan 09 2025 10:41AM [facility] [place] CORONARY W IVCON / PROCEDURE REASON: R07.89-Other chest pain * * * * Physician Interpretation * * * * CTA CORONARY ARTERIES Direct Image Comparison: none HISTORY: 29 years old Female patient with concern for CAD/anomalous coronaries. Evaluation for diagnostic clarification and further treatment options.. There is request to define coronary anatomy. TECHNIQUE: SCANNER: Multi-detector scanner PROTOCOL: Sequential imaging of the heart with prospective triggering in diastolic phase and submillimeter slice reconstruction following administration of contrast material. Scan Range: meryl to the base of the heart CT Dose-Length Product (DLP): 794 mGy*cm CT Dose Reduction Employed: Automated exposure control(AEC) and iterative recon CONTRAST: IV administration of 90 ml Omnipaque 350 Premedication per [facility] protocol/documentati on. Scan acquisition: uncomplicated Macro Version: [id number] For optimization of anatomic evaluation, advanced 3-D off-line postprocessing was performed on a dedicated workstation by the interpreting physician. STUDY LIMITATIONS: None. RESULT: LINES, TUBES and DEVICES: None limited CHEST: visualized Chest wall anatomy: unremarkable. visualized LUNGS: unremarkable. visualized MEDIASTINUM: unremarkable. PERICARDIUM: unremarkable CENTRAL PULMONARY ARTERY: normal dimensions. Assessment is limited due to limited contrast enhancement. CARDIAC CHAMBERS: LEFT VENTRICLE: normal size RIGHT VENTRICLE: normal size Left atrium: normal size. Changes at the interatrial septum, consistent with PFO. JERZY: normal Right atrium: normal size CENTRAL VENOUS and PULMONARY VENOUS RETURN: normal. Coronary Sinus: normal size MITRAL VALVE: assessment is limited in the current study - no leaflet calcification. No annular calcification TRICUSPID and PULMONIC VALVE: appear unremarkable. AORTIC VALVE: appears trileaflet. No leaflet calcification. visualized AORTA: Pathology: No aortic pathology in limited visualized segments of the aorta, Intervention: None Complications: n/a Aortic Size: Normal size visualized thoracic aorta. STJ: maintained Wall Changes: no wall calcification. AORTIC DIMENSIONS: AORTIC ROOT: 3.7 cm measured [id number] mid ASCENDING THORACIC AORTA: 2.7 cm mid DESCENDING THORACIC AORTA: 1.7 cm CORONARY ANATOMY: normal origin of the coronary arteries. LEFT MAIN: Coronary Artery Normal sized vessel, which trifurcates into LAD, RI, and LCX. LM Stenosis and Plaque: No plaque or luminal stenosis. LAD: (Left Anterior Descending Coronary Artery) Normal size vessel, which wraps around the apex. Gives rise to 2 diagonal branches and small septal branches. LAD Stenosis and Plaque: No plaque or luminal stenosis. RAMUS INTERMEDIUS: Normal size vessel. RI Stenosis and Plaque: No plaque or luminal stenosis. LCX: (Left Circumflex Coronary Artery) Small size vessel, which is non-dominant. Gives rise to 1 lateral branch, and a posterolateral branch. LCX Stenosis and Plaque: No plaque or luminal stenosis. RCA: (Right Coronary Artery) Normal size vessel, which is dominant.. Gives rise to a conus branch, SA chris branch, 1 acute marginal branch. In its mid-distals segment it bifurcates into the PDA and PV branch. RCA Stenosis and Plaque: No plaque or luminal stenosis. limited upper ABDOMEN: unremarkable BONES and SOFT TISSUES: unremarkable, within limitations of the current study Loading Unit Operator Powder Charging (topogram) images: No additional findings. IMPRESSION IMPRESSION: 1. Normal origin of the coronary arteries. - CAD-RADS 0: No plaque or luminal stenosis. Absence of CAD. - Overall Plaque [place]: No evidence of plaque - Clinical correlation is recommended 2. Left atrium: normal size. Changes at the interatrial septum, consistent with PFO.Correlation with echocardiography is recommended. 3. The thoracic aorta is normal in caliber, course and contour. Funeral Pre Arrangement Specialist: PSCB Transcribe Date/Time: Jan 09 2025 5:54P Dictated by : UNIQUE MACARIO MD This examination was interpreted and the report reviewed and electronically signed by: UNIQUE MACARIO MD on Jan 09 2025 10:28PM EST [facility] Radiology Study observation (narrative) [facility] CTA Heart and Coronary arter ies W contrast IVOrdered By: [facility] Provider on 01-09-2025 [facility] NURSING PROGon 01-09-2025 NURSING PROG HNO ID: [id number] Author: RADHA HALLMAN RN Service: Interventional Radiology Author Type: Registered Nurse Type: Nursing Progress Note Filed: 01/09/2025 11:02 Note Text: Radiology Service Progress Note PATIENT NAME: Angelita Marley DATE OF SERVICE: January 09, 2025 TIME: 11:01 AM PATIENT IDENTITY VERIFICATION COMPLETED USING TWO (2) STANDARD IDENTIFIERS: Name and Date of confirmed by patient verbally and Name and Date of confirmed by identification band. PATIENT GENDER DATA: Assigned female at . status: : No status: NO. PATIENT RELEVANT IMPLANT DATA REVIEWED: Not Applicable ALLERGIES: Reviewed and unchanged MEDICATIONS REVIEWED: YES PROCEDURE TYPE: CTA Coronary PATIENT SCREENIN.3 SL nitro given before contrast administered IV SITE: Ambulatory: A peripheral IV was started in the Left antecubital site with a Angio cath: 18 gauge. PERIPHERAL IV ACCESS: Discontinued CARDIAC MEDICATIONS: Nitroglycerin 0.3 mg SL given PATIENT DISCHARGED TO: Home/Self Care SIGNED BY: Radha Hallman RN January 09, 2025 11:01 AM [facility] 12-14-2024 [facility] ANGELITA MARLEY ([id number]) 1995 F Date Time Provider Department 12/14/24 2:40 PM CECILE LUIS [facility] During your visit today, we recorded the following information about you: Pulse Blood pressure Weight 83/minute 126/86 72.6 kg Cecile Luis, HUNTER TRAPPER.CATERING ADMINISTRATIVE ASSISTANT 12/14/2024 3:10 PM Signed This is a 29 year old female who presents today with: No chief complaint on file. HISTORY OF PRESENT ILLNESS: Angelita Marley is a 29 year old female. No chief complaint on file. Angelita Marley is a 29-year-old female with a history of CVA, presenting for follow-up of neurological symptoms and headaches. Neurological Symptoms: - Daily symptoms of feeling intoxicated without alcohol consumption. - Recent episode of right-sided facial numbness and severe migraine while driving, leading to ER visit. - Reports feeling cognitively slow and having difficulty with speech, described as feeling very slow and struggling to get words out. - Experiences numbness and tingling in extremities, with legs frequently going to sleep and right hand becoming completely numb. - Vision disturbances, particularly in the right eye, with intermittent blurriness. - Frequent headaches, including pain behind the eyes. - Episodes of severe shaking, described as convulses. - Significant weight loss of approximately 10 lbs in the past month, with a current weight of 150 lbs. - Family history of strokes, blood clots, brain tumors, and cancers. CVA: - Multiple ER visits for stroke-like symptoms. - Diagnosed with a stroke on MRI; has had two MRIs, one at [facility] and one at [facility]. - Neurologist Dr. Lackey is following the case; Angelita is scheduled to see a headache neurologist in December. - Denies use of control at the time of the stroke; has not used control for about 5 years. Headaches: - Daily headaches, but not all are migraines. - Taking topiramate, which has helped reduce the frequency of migraines. - Reports brain fog but unsure if it is related to topiramate. - Taking trazodone 50 mg for sleep, but still experiencing insomnia; reports getting a couple of hours of sleep with trazodone, but will go days without sleep if not taking it. - Rarely uses Benadryl, mostly in the fall for allergies. PAST MEDICAL HISTORY: PAST MEDICAL HISTORY Diagnosis Date anxiety Asthma (HCC) sports induced. No attacks since age 16 depression PAST SURGICAL HISTORY Procedure Laterality Date INSERTION OF IUD 07/15/2020 Mirena PAST SURGICAL HISTORY OF wisdom teeth and root canal PAST SURGICAL HISTORY OF Right 03/09/2023 Heel spur removed and tendon cut for plantar fasciitis ALLERGIES Amoxicillin, Dicyclomine, and Seasonal Allergies MEDICATIONS Current Outpatient Medications Medication Sig ACETAMINOPHEN PO Take 1 dose by mouth as needed. Aspirin 81 mg tab Take 1 mg by mouth once daily. IBUPROFEN PO Take 1 dose by mouth as needed. metoprolol tartrate, short acting, (LOPRESSOR) 50 mg tablet Take one 50 mg tablet the evening prior to the CTA examination, take another 50 mg tablet the morning of the CTA examination. nitroglycerin sublingual (NITROQUICK) 0.3 mg SL tablet Dissolve 1 tablet under the tongue one time only for 1 dose. To be administered in Radiology for CTA exam atorvastatin (LIPITOR) 40 mg tablet Take 1 tablet by mouth once daily. FLUoxetine (PROZAC) 20 mg capsule Take 1 capsule by mouth once daily. omeprazole (PRILOSEC) 20 mg capsule Take 1 capsule by mouth daily before breakfast. 1/2 hr before meal. topiramate (TOPAMAX) 25 mg tablet Take 1 tablet by mouth two times a day. traZODone (DESYREL) 50 mg tablet Take 1 tablet by mouth daily at bedtime. cetirizine (ZYRTEC) 10 mg tablet Take 10 mg by mouth as needed. fluticasone (FLONASE ALLERGY RELIEF) 50 mcg/actuation nasal spray Use 1 [place] in each nostril two times a day. diphenhydramine HCl (BENADRYL ORAL) Take 1 tablet by mouth as needed. No current facility-administere d medications for this visit. FAMILY HISTORY Problem Relation Age of Onset Asthma Mother other (Other tachycardia) Mother other (Other, hernia surgery) Father other (Other irregular heart rate) Father No Known Problems Sister Asthma Sister No Known Problems Brother Asthma Brother Cancer Maternal Grandmother skin cancer No Known Problems Maternal Grandfather Heart Paternal Grandmother other (benign tumor of ear) Paternal Grandmother No Known Problems Paternal Grandfather No Known Problems Son Heart Attack Maternal Uncle 37 Heart Attack Maternal Uncle SOCIAL HISTORY[1] REVIEW OF SYSTEMS Constitutional: (+) insomnia, (+) weight loss, (+) decreased appetite, (-) cold intolerance Head: (+) headache Eyes: (+) visual disturbance, (+) eye pain Gastrointestinal: (+) heartburn Musculoske (more content not included)... Normal [facility] DVT LOWER BILon DVT LOWER MACKENZIE * * *Final Report* * * DATE OF EXAM: Dec 12 2024 9:51AM [facility] 1005 - DVT LOWER MACKENZIE / PROCEDURE REASON: Cerebral infarction, unspecified mechanism (HCC) * * * * Physician Interpretation * * * * History: Cerebral infarction, unspecified mechanism (HCC) EXAMINATION: RIGHT AND LEFT LOWER EXTREMITY DEEP VENOUS ULTRASOUND WITH DOPPLER IMAGING TECHNIQUE: Grayscale with compression maneuvers, color Doppler and spectral Doppler imaging of the right and left proximal deep veins was performed. Grayscale with compression maneuvers of the right and left peroneal and posterior tibial veins was performed. The right and left great and small saphenous veins were evaluated at their insertion to the deep system. Images were obtained and stored in a permanent archive. MQ: [id number]_1 COMPARISON: None RESULT: RIGHT LOWER EXTREMITY PROXIMAL DEEP VEINS Distal External Iliac, Common Femoral and Proximal Profunda Veins: Compression: Normal Doppler: Normal, spontaneous respirophasic flow. Normal response to augmentation. Femoral vein: Compression: Normal Doppler: Normal, spontaneous respirophasic flow. Normal response to augmentation. Popliteal vein: Compression: Normal Doppler: Normal, spontaneous respirophasic flow. Normal response to augmentation. CALF DEEP VEINS Peroneal veins: Normal compression. Posterior tibial veins: Normal compression. Gastrocnemius and Soleal veins: Not imaged. SUPERFICIAL VEINS Great saphenous: Patent and compressible at insertion into common femoral vein; not otherwise assessed. Small Saphenous: Patent and compressible in the proximal calf, not otherwise assessed. LEFT LOWER EXTREMITY PROXIMAL DEEP VEINS Distal External Iliac, Common Femoral and Proximal Profunda Veins: Compression: Normal Doppler: Normal, spontaneous respirophasic flow. Normal response to augmentation. Femoral vein: Compression: Normal Doppler: Normal, spontaneous respirophasic flow. Normal response to augmentation. Popliteal vein: Compression: Normal Doppler: Normal, spontaneous respirophasic flow. Normal response to augmentation. CALF DEEP VEINS Peroneal veins: Normal compression. Posterior tibial veins: Normal compression. Gastrocnemius and Soleal veins: Not imaged. SUPERFICIAL VEINS Great saphenous: Patent and compressible at insertion into common femoral vein; not otherwise assessed. Small Saphenous: Patent and compressible in the proximal calf, not otherwise assessed. IMPRESSION: Negative study for proximal DVT in the left and right lower extremities. Negative study for calf DVT in the left and right lower extremities. Negative study for superficial thrombophlebitis in the imaged segments of the left and right lower extremities. Funeral Pre Arrangement Specialist: PSCB Transcribe Date/Time: Dec 13 2024 4:12P Dictated by : ZACH GRAVES MD This examination was interpreted and the report reviewed and electronically signed by: ZACH GRAVES MD on Dec 13 2024 4:13PM EST [id number] CN [id number] ANGELITA MARLEY ([id number]) 1995 F Date Time Provider Department 12/10/24 FLAVIO NAVARRETE [id number] During your visit today, we recorded the following information about you: Naz Dietz 12/10/2024 12:45 PM Signed Patient calling office requesting to discuss her recent e.r. CTA imaging test results that was listed as being critical. Patient requests a urgent call back at [phone] and has also left a [employer] message as well. Delmi Davidson RN 12/10/2024 4:02 PM Signed Gave patient a call back in regards to critical result from CT scan. Referred patient to message from Dr. Navarrete. Patient informed me she read the message. Patient had no other questions or concerns. SATURNINO Young Kedasia 12/11/2024 2:11 PM Signed [facility] calling to ask if patient still needs to get CTA's done because she just had them done but with a different provider. Patient did not get MRI done with other provider. Patient is scheduled with [facility] tomorrow 12/12. Please return call to [facility] if needed. [phone] Delmi Davidson RN 12/11/2024 4:33 PM Addendum Called and spoke with [facility] to update care team of no need of CTA and CTV. No answer. LVM with call back number. message sent to patient as an update as well. Delmi Davidson RN Allergies As of Date: 12/10/2024 Noted Allergy Reaction AMOXICILLIN 01/13/2018 16 - Unknown Comments: When she was a child DICYCLOMINE 09/22/2023 5 - Intolerance Comments: Patient reports causes migraines SEASONAL ALLERGIES 01/13/2018 9 - Itching Date Reviewed: 12/05/2024 Reviewed by: Marielena Russell RN - Fully Assessed Reason for Visit: Results [95] Prescriptions as of 12/11/2024 - ACETAMINOPHEN PO Take 1 dose by mouth as needed. - Aspirin 81 mg tab Take 1 mg by mouth once daily. - IBUPROFEN PO Take 1 dose by mouth as needed. - metoprolol tartrate, short acting, (LOPRESSOR) 50 mg tablet Take one 50 mg tablet the evening prior to the CTA examination, take another 50 mg tablet the morning of the CTA examination. - nitroglycerin sublingual (NITROQUICK) 0.3 mg SL tablet Dissolve 1 tablet under the tongue one time only for 1 dose. To be administered in Radiology for CTA exam - atorvastatin (LIPITOR) 40 mg tablet Take 1 tablet by mouth once daily. - FLUoxetine (PROZAC) 20 mg capsule Take 1 capsule by mouth once daily. - omeprazole (PRILOSEC) 20 mg capsule Take 1 capsule by mouth daily before breakfast. 1/2 hr before meal. - topiramate (TOPAMAX) 25 mg tablet Take 1 tablet by mouth two times a day. - traZODone (DESYREL) 50 mg tablet Take 1 tablet by mouth daily at bedtime. - cetirizine (ZYRTEC) 10 mg tablet Take 10 mg by mouth as needed. - fluticasone (FLONASE ALLERGY RELIEF) 50 mcg/actuation nasal spray Use 1 [place] in each nostril two times a day. - diphenhydramine HCl (BENADRYL ORAL) Take 1 tablet by mouth as needed. Facility-Administere d Medications as of 12/11/2024 - perflutren lipid microspheres 1.3 mL in NaCl (PF) 0.9% 10 mL injection ([employer]) Problem List As Of Date 12/10/2024 Noted Resolved History of anxiety [Z86.59] 05/25/2018 Genetic testing [Z13.79] 05/25/2018 06/22/2018 Encounter for ultrasound [Z36.9] 05/25/2018 06/22/2018 Asthma complicating in first trimeste*05/25/2018 06/12/2020 Encounter for supervision of normal first pregn*09/22/2018 06/12/2020 Short interval between pregnancies affecting pr*09/13/2019 06/12/2020 History of depression [Z87.59, Z86.5*09/13/2019 06/12/2020 Encounter Status:Closed by DELMI DAVIDSON on 12/10/24 Normal [facility] ALLIED HEALTHon 12-05-2024 ALLIED HEALTH HNO ID: [id number] Author: KRISTINA CERVANTES RT(Nancy) Service: Radiology Author Type: Hot Plate Plywood Press Operator Type: Allied Health Filed: 12/05/2024 17:03 Note Text: Radiology Service Progress Note DATE OF SERVICE: December 05, 2024 TIME: 5:03 PM PATIENT IDENTITY VERIFICATION COMPLETED USING TWO (2) STANDARD IDENTIFIERS: Name and Date of confirmed by patient verbally. FALL SCREENING: Has the patient had 2 falls in the last year or 1 fall with injury or currently using an Ambulatory Assistive Device (Walker, Cane, Wheelchair, Crutches, etc.)? Emergency Room Patient: Screened in ED PATIENT GENDER DATA: Assigned female at . status: : No status: NO. PATIENT RELEVANT IMPLANT DATA REVIEWED: Yes PATIENT PRESENTS WITH AN IMPLANTABLE OR ATTACHED INFORMATION SYSTEMS AUDITOR: No ALLERGIES: Reviewed and unchanged CONTRAST ALLERGY: NO. EXAM: CT -CONTRAST INDUCED NEPHROPATHY RISK FACTORS: Not applicable CREATININE: Creatinine Date Value Ref Range Status 12/05/2024 0.59 0.58 - 0.96 mg/dL Final 11/12/2024 0.62 0.58 - 0.96 mg/dL Final 11/08/2024 0.68 0.58 - 0.96 mg/dL Final Estimated Glomerular Filtration Rate Date Value Ref Range Status 12/05/2024 125 >=60 mL/min/1.73m? Final Comment: Estimated Glomerular Filtration Rate (eGFR) is calculated using the 2020 CKD-EPI creatinine equation. This equation utilizes serum creatinine, sex, and age as parameters. The creatinine assay has traceable calibration to isotope dilution-mass spectrometry. Refer to KDIGO guidelines for clinical interpretation. In patients with unstable renal function, e.g. those with acute kidney injury, the eGFR may not accurately reflect actual GFR. P.O.C.T. RESULTS: POC done: Yes, See Lab Tab December 05, 2024 TREATMENT: N/A PERIPHERAL IV DATA: Inpatient - refer to LDA documentation RADIOLOGY DEPARTMENT: CT; Exam(s) Completed: Brain , CTA Brain , and CTA Neck SIGNATURE: RT [place](R) PATIENT NAME: Angelita Marley DATE: December 05, 2024 TIME: 5:03 PM Normal [facility] Basic metabolic 2000 panelon 12-05-2024 Anion gap [Moles/Vol] 11 mmol/L Normal 8-15 [facility] Comment on above: Order Comment: Speci men Type: BLOOD SPECIMENOrdering Facility: [facility] Address: [address] [place] [address] Performed By: #### 2 4321-2 ####[facility] LABCLIA [id number] [place] [address] [place] Calcium [Mass/Vol] 9.6 mg/dL Normal 8.5-10.2 [facility] Comment on above: Order Comment: Speci men Type: BLOOD SPECIMENOrdering Facility: [facility] Address: [address] [place] [address] Performed By: #### 2 4321-2 ####[facility] LABCLIA [id number] [place] [address] [place] Chloride [Moles/Vol] 102 mmol/L Normal 98-107 [facility] Comment on above: Order Comment: Speci men Type: BLOOD SPECIMENOrdering Facility: [facility] Address: [address] [place] [address] Performed By: #### 2 4321-2 ####[facility] LABCLIA [id number] [place] [address] [place] CO2 [Moles/Vol] 26 mmol/L Normal 22-30 [facility] Comment on above: Order Comment: Speci men Type: BLOOD SPECIMENOrdering Facility: [facility] Address: [address] [place] [address] Performed By: #### 2 4321-2 ####[facility] LABCLIA [id number] [place] [address] [place] Creatinine [Mass/Vol] 0.59 mg/dL Normal 0.58-0.96 [facility] Comment on above: Order Comment: Speci men Type: BLOOD SPECIMENOrdering Facility: [facility] Address: [address] [place] [address] Performed By: #### 2 4321-2 ####[facility] [facility] LABCLIA [id number] [place] [address] [place] eGFRcr SerPlBld CKD-EPI 2020 125 mL/min/1.73m??? Normal >=60 [facility] Comment on above: Order Comment: Speci men Type: BLOOD SPECIMENOrdering Facility: [facility] Address: [address] [place] [address] Result Comment: Xavier mated Glomerular Filtration Rate (eGFR) is calculated using the 2020 CKD-EPI creatinine equation. This equation utilizes serum creatinine, sex, and age as parameters. The creatinine assay has traceable calibration to isotope dilution-mass spectrometry. Refer to KDIGO guidelines for clinical interpretation. In patients with unstable renal function, e.g. those with acute kidney injury, the eGFR may not accurately reflect actual GFR. Performed By: #### 2 4321-2 ####[facility] LABCLIA [id number] [place] [address] [place] Glucose [Mass/Vol] 103 mg/dL High 74-99 [facility] Comment on above: Order Comment: Leona dalal Type: BLOOD SPECIMENOrdering Facility: [facility] Address: [address] [place] [address] Result Comment: The [place] Diabetes Association (ADA) provides guidance for cutoff values for fasting glucose and random glucose. The ADA defines fasting as no caloric intake for at least 8 hours. Fasting plasma glucose results between 100 to 125 mg/dL indicate increased risk for diabetes (prediabetes). Fasting plasma glucose results greater than or equal to 126 mg/dL meet the criteria for diagnosis of diabetes. In the absence of unequivocal hyperglycemia, results should be confirmed by repeat testing. In a patient with classic symptoms of hyperglycemia or hyperglycemic crisis, random plasma glucose results greater than or equal to 200 mg/dL meet the criteria for diagnosis of diabetes. Reference: Standards of Medical Care in Diabetes 2016, [place] Diabetes Association. Diabetes Care. 2016.39(Suppl 1). Performed By: #### 2 4321-2 ####[facility] LABCLIA [id number] [place] [address] [place] Potassium [Moles/Vol] 4.2 mmol/L Normal 3.7-5.1 [facility] Comment on above: Order Comment: Leona dalal Type: BLOOD SPECIMENOrdering Facility: [facility] Address: [address] [id number] Performed By: #### 2 4321-2 ####[facility] LABCLIA [id number] [place] [address] [place] Sodium [Moles/Vol] 139 mmol/L Normal 136-144 [facility] Comment on above: Order Comment: Speci men Type: BLOOD SPECIMENOrdering Facility: [facility] Address: [address] [place] [address] Performed By: #### 2 4321-2 ####[facility] LABCLIA [id number] [place] [address] [place] Urea nitrogen [Mass/Vol] 9 mg/dL Normal 7-21 [facility] Comment on above: Order Comment: Speci men Type: BLOOD SPECIMENOrdering Facility: [facility] Address: [address] [place] [address] Performed By: #### 2 4321-2 ####[facility] LABCLIA [id number] [place] [address] [facility] CBC panel Auto (Bld)on 12-05 Erythrocyte distribution width (RBC) [Ratio] 12.2 % Normal 11.5-15.0 [facility] Comment on above: Order Comment: Speci men Type: BLOOD SPECIMENOrdering Facility: [facility] Address: [address] [place] [address] Performed By: #### 5 8410-2 ####[facility] LABCLIA [id number] [place] [address] [place] Hematocrit (Bld) [Volume fraction] 42.5 % Normal 36.0-46.0 [facility] Comment on above: Order Comment: Speci men Type: BLOOD SPECIMENOrdering Facility: [facility] Address: [address] [place] [address] Performed By: #### 5 8410-2 ####[facility] LABCLIA [id number] [place] [address] [facility] [place] Hemoglobin (Bld) [Mass/Vol] 14.6 g/dL Normal 11.5-15.5 [facility] Comment on above: Order Comment: Speci men Type: BLOOD SPECIMENOrdering Facility: [facility] Address: [address] [place] [address] Performed By: #### 5 8410-2 ####[facility] LABCLIA [id number] [facility] [address] [place] [facility] MCH (RBC) [Entitic mass] 31.2 pg Normal 26.0-34.0 [facility] Comment on above: Order Comment: Speci men Type: BLOOD SPECIMENOrdering Facility: [facility] Address: [address] [place] [address] Performed By: #### 5 8410-2 ####[facility] LABCLIA [id number] [place] [address] [facility] OF [place] MCHC (RBC) [Mass/Vol] 34.4 g/dL Normal 30.5-36.0 [facility] Comment on above: Order Comment: Speci men Type: BLOOD SPECIMENOrdering Facility: [facility] Address: [address] [place] [address] Performed By: #### 5 8410-2 ####[facility] LABCLIA [id number] [place] [address] [facility] MCV (RBC) [Entitic vol] 90.8 fL Normal 80.0-100.0 [facility] Comment on above: Order Comment: Speci men Type: BLOOD SPECIMENOrdering Facility: [facility] Address: [address] [place] [address] Performed By: #### 5 8410-2 ####[facility] LABCLIA [id number] [place] [address] [facility] [place] Platelet mean volume (Bld) [Entitic vol] 10.4 fL Normal 9.0-12.7 [facility] Comment on above: Order Comment: Speci men Type: BLOOD SPECIMENOrdering Facility: [facility] Address: [address] [place] [address] Performed By: #### 5 8410-2 ####[facility] LABCLIA [id number] [place] [address] [facility] [place] Platelets (Bld) [#/Vol] 262 10*3/uL Normal 150-400 [facility] Comment on above: Order Comment: Maggiejerry dalal Type: BLOOD SPECIMENOrdering Facility: [facility] Address: [address] [place] [address] Performed By: #### 5 8410-2 ####[facility] LABCLIA [id number] [place] [address] [facility] RBC (Bld) [#/Vol] 4.68 10*6/uL Normal 3.90-5.20 [facility] Comment on above: Order Comment: Speci men Type: BLOOD SPECIMENOrdering Facility: [facility] Address: [address] [place] [address] Performed By: #### 5 8410-2 ####[facility] LABCLIA [id number] [address] [place] [id number] [facility] WBC (Bld) [#/Vol] 10.07 10*3/uL Normal 3.70-11.00 [facility] Comment on above: Order Comment: Speci men Type: BLOOD SPECIMENOrdering Facility: [facility] Address: [address] [place] [address] Performed By: #### 5 8410-2 ####[facility] LABCLIA [id number] [address] [place] [id number] [facility] CNOVon 12-05-2024 CNOV Office Visit (CAFLMN) ANGELITA MARLEY ([id number]) 1995 F Date Time Provider Department 12/05/24 1:30 PM ECHO LAB TTE J1-5B CAFLMN During your visit today, we recorded the following information about you: Referring Provider: ADRIANE GONZALES [[id number]] Allergies As of Date: 12/05/2024 Noted Allergy Reaction AMOXICILLIN 01/13/2018 16 - Unknown Comments: When she was a child DICYCLOMINE 09/22/2023 5 - Intolerance Comments: Patient reports causes migraines SEASONAL ALLERGIES 01/13/2018 9 - Itching Date Reviewed: 12/05/2024 Reviewed by: Camilla Arana, SATURNINO - Fully Assessed Visit Diagnosis:Other chest pain [R07.89] Order(s):ECHO WITH AGITATED SALINE CONTRAST [[id number]] Order #: [id number]. #:[id number] CCFQty: 1 perflutren lipid microspheres 1.3 mL in NaCl (PF) 0.9% 10 mL injection (DEFINITY)Disp: Rfl: [] sodium chloride 0.9 % (flush) 10 mL (BD POSIFLUSH)Disp: Rfl: Prescriptions as of 12/05/2024 - ACETAMINOPHEN PO Take 1 dose by mouth as needed. - Aspirin 81 mg tab Take 1 mg by mouth once daily. - IBUPROFEN PO Take 1 dose by mouth as needed. - iv contrast (will be provided with radiology test) CTA Coronary. No IV access, insert saline lock prior to the sedation, infusion, injection for imaging exam. Discontinue saline lock post exam. If Pt. has a central line or IVAD, may access for administration according to line specific nursing protocol. Once exam is complete flush line and de-access according to line specific nursing protocol in the CT contrast administration guidelines link. - metoprolol tartrate, short acting, (LOPRESSOR) 50 mg tablet Take one 50 mg tablet the evening prior to the CTA examination, take another 50 mg tablet the morning of the CTA examination. - nitroglycerin sublingual (NITROQUICK) 0.3 mg SL tablet Dissolve 1 tablet under the tongue one time only for 1 dose. To be administered in Radiology for CTA exam - atorvastatin (LIPITOR) 40 mg tablet Take 1 tablet by mouth once daily. - FLUoxetine (PROZAC) 20 mg capsule Take 1 capsule by mouth once daily. - omeprazole (PRILOSEC) 20 mg capsule Take 1 capsule by mouth daily before breakfast. 1/2 hr before meal. - topiramate (TOPAMAX) 25 mg tablet Take 1 tablet by mouth two times a day. - traZODone (DESYREL) 50 mg tablet Take 1 tablet by mouth daily at bedtime. - cetirizine (ZYRTEC) 10 mg tablet Take 10 mg by mouth as needed. - fluticasone (FLONASE ALLERGY RELIEF) 50 mcg/actuation nasal spray Use 1 [place] in each nostril two times a day. - diphenhydramine HCl (BENADRYL ORAL) Take 1 tablet by mouth as needed. Facility-Administere d Medications as of 12/05/2024 - perflutren lipid microspheres 1.3 mL in NaCl (PF) 0.9% 10 mL injection (DEFINITY) Problem List As Of Date 12/05/2024 Noted Resolved History of anxiety [Z86.59] 05/25/2018 Genetic testing [Z13.79] 05/25/2018 06/22/2018 Encounter for ultrasound [Z36.9] 05/25/2018 06/22/2018 Asthma complicating in first trimeste*05/25/2018 06/12/2020 Encounter for supervision of normal first pregn*09/22/2018 06/12/2020 Short interval between pregnancies affecting pr*09/13/2019 06/12/2020 History of depression [Z87.59, Z86.5*09/13/2019 06/12/2020 Prescriptions ordered this encounter Disp Refills Start End PERFLUTREN LIPID MICROSPHERES 1.1 MG* 12/05/2024 12/12/2024 Route: IV SODIUM CHLORIDE 0.9 % (FLUSH) INJECT* 12/05/2024 12/05/2024 Route: IV Encounter Status:Closed by ANKUSH FERRER on 12/05/24 Normal [facility] CNOV Office Visit (CARCMN) ANGELITA MARLEY ([id number]) 1995 F Date Time Provider Department 12/05/24 9:30 AM ADRIANE GONZALES CARCMN During your visit today, we recorded the following information about you: Pulse Blood pressure Weight 63/minute 127/88 70.6 kg Adriane Gonzales MD 12/06/2024 12:14 PM Signed [facility] [place] [facility] Department of Cardiovascular Medicine SECTION OF CLINICAL CARDIOLOGY OUTPATIENT VISIT DATE December 05, 2024 OUTPATIENT VISIT TYPE CONSULTATION PRIMARY CARE PHYSICIAN: Cecile Luis [address] [place] [address] REFERRING PHYSICIAN Munir Allison [address] [facility] [address] CHIEF COMPLAINT: Chest pain HISTORY OF PRESENT ILLNESS: Cardiac consultation at the request of Dr. Munir Allison.A copy of this consultation note will be provided to the requesting physician by way of shared Medical record or letter to requesting physician via US mail. Ms. Marley is a 29 year old female who is seen today for chest pain. PMHx significant for asthma, anxiety, and depression. Patient states she has been having chest pain since November 07 which has gradually worsened. She presented to [facility] ED in [place] at this time. It is present both at rest and with activity. She has also been experiencing shortness of breath with activity. The chest pain radiates down her left arm and has been experiencing numbness in both hands. It also radiates up her neck. She still was not feeling well and went to [facility] in [place] and left again after a few hours. On November 08 she had acute vision loss on her right side. Saw mimeographer who sent her to the ED since they were concerned about stroke. She went to [facility] and had a CT scan w/o contrast, MRI and did not find anything concerning for stroke. They discharged her after 2-3 hours. Had an apt with a neurology a week later on November 14 and was started on cholesterol medication and low dose aspirin. She did a cranial doppler bubble study which was positive. Per patient, other imaging obtained showed evidence of a stroke but is unsure whether it's new or old. She denies orthopnea, edema, palpitations. NURSING INTAKE: Ms. Marley is a 29 year old female from [place], [place] here today for cardiovascular evaluation related to chest pain which began in August of 2024. She was referred by Dr. Munir Allison. On November 07 she presented to ED with complaints of severe chest pain, nausea, dizziness and a headache which woke her up at 4am. Her bloodwork revealed an elevated D-Dimer of 1800ng/mL. Her chest CT was normal. She was discharged home, however presented to another ED later in the day for complaints of persistent dizziness, feeling out of it and weakness in both hands (worse on L). She underwent cardiac workup, which was normal and she was again discharged. Per Office Note by Dr. Flavio Manzo MD Cerebrovascular Medicine on 11/22/2024: She has a family history of ?clotting disorders on both sides, with maternal uncles having heart clots and one uncle having two strokes and a heart attack. Her paternal grandmother had an aneurysm in her heart and a clot in her ?right ear, resulting in deafness. All family members with heart problems were under 45 years old. 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 PAST MEDICAL HISTORY Diagnosis Date anxiety Asthma (HCC) sports induced. No attacks since age 16 depression PAST SURGICAL HISTORY Procedure Laterality Date INSERTION OF IUD 07/15/2020 Mirena PAST SURGICAL HISTORY OF wisdom teeth and root canal PAST SURGICAL HISTORY OF Right 03/09/2023 Heel spur removed and tendon cut for plantar fasciitis SOCIAL HISTORY Social History Tobacco Use Smoking status: Never Smokeless tobacco: Never Vaping Use Vaping status: Never Used Substance Use Topics Alcohol use: Not Currently Comment: occasionally but not while Drug use: No FAMILY HISTORY Problem Relation Age of Onset Asthma Mother other (Other tachycardia) Mother other (Other, hernia surgery) Father other (Other irregular heart rate) Father No Known Problems Si (more content not included)... Normal [facility] CT BRAIN ATTACK WO IVCONon 0 12-05-2024 CT BRAIN ATTACK WO IVCON * * *Final Repo rt* * * DATE OF EXAM: Dec 05 2024 4:53PM [facility] 0502 - CT BRAIN ATTACK WO IVCON / PROCEDURE REASON: Focal neuro deficit, new, fixed, or worsening, < 4.5 hours, stroke suspected * * * * Physician Interpretation * * * * EXAMINATION: CT BRAIN ATTACK WO IVCON CLINICAL HISTORY: Focal neuro deficit, new, fixed, or worsening, < 4.5 hours, stroke suspected Brain attack. TECHNIQUE: Routine CT of the brain without IV contrast. MQ: CTBA_4 CT Radiation dose: Integrated CT Dose-Length Product (DLP) for this visit = 779.62 mGy*cm CT Dose Reduction Employed: No dose reduction techniques were required COMPARISON: MR head 11/14/2024 RESULT: Acute ischemic change: None. ASPECT Score = 10 Hemorrhage: No evidence of acute intracranial hemorrhage. ECASS hemorrhagic transformation score: Not Applicable Mass Lesion / Mass Effect: The left medial occipital lesion is better visualized on recent MR. No significant mass effect. Chronic change: None apparent. Parenchyma: There is no significant volume loss. The brain parenchyma is otherwise within normal limits for age. Ventricles: Normal caliber and morphology. Other: The visualized calvarium, skull base, orbits and extracranial soft tissues are normal. Localizer images: No additional findings. IMPRESSION: No acute intracranial findings. CRITICAL TEST/RESULTS: Communicated with JUSTO MO on 12/05/2024 4:58 PM . CR_1 Funeral Pre Arrangement Specialist: ERIC Transcribe Date/Time: Dec 05 2024 4:54P Dictated by : ALEXANDREA BIRD MD This examination was interpreted and the report reviewed and electronically signed by: ALEXANDREA BIRD MD on Dec 05 2024 4:59PM EST [id number] CN CRITICAL!! Invalid Interpretation Code [facility] CTA HEAD W IVCONon CTA HEAD W IVCON * * *Final Report* * * DATE OF EXAM: Dec 05 2024 5:12PM [facility] 0022 - CTA HEAD W IVCON / PROCEDURE REASON: Focal neuro deficit, new, fixed, or worsening, < 4.5 hours, stroke suspected * * * * Physician Interpretation * * * * EXAMINATION: CTA HEAD W IVCON, CTA NECK W IVCON HISTORY: Stroke workup. TECHNIQUE: Spiral high resolution axial images were obtained through the head, neck and superior mediastinum following bolus administration of intravenous contrast for CT angiography. 3D maximum intensity projection images were created, reviewed and archived . MQ: CTAHN_4 Contrast: 100 mL Omnipaque [address] Radiation dose: Integrated Dose-Length Product (DLP) for this visit = 1599.48 mGy*cm. CT Dose Reduction Employed: Automated exposure control(AEC) and iterative recon COMPARISON: None. RESULT: BRAIN: Evaluation of the individual slices of the CTA demonstrates no evidence of an acute stroke. ASPECT Score = 10 Hemorrhage: No clear evidence of acute intracranial hemorrhage within the constraints of this contrast enhanced acquisition. ECASS hemorrhagic transformation score: Not Applicable NECK: Soft tissues: The soft tissue planes are maintained throughout. No evidence of a soft tissue mass in the neck or superior mediastinum. No significant lymphadenopathy is seen. Spine: Alignment is normal. No significant degenerative changes are present. Lung apices: The visualized lung apices are clear. CT ARTERIOGRAM: Extracranial Circulation: Aortic Arch: There is a normal branching pattern from the aortic arch. There is no significant stenosis in the proximal brachiocephalic vessels. Carotid Stenosis: Right Common: No significant stenosis. Right Internal Carotid Plaque: No significant plaque formation. Right Internal Carotid Stenosis (% by NASCET Criteria): No significant stenosis Left Common: No significant stenosis. Left Internal Carotid Plaque: No significant plaque formation. Left Internal Carotid Stenosis (% by NASCET Criteria): No significant stenosis Cervical Vertebral Arteries: Patency: Bilateral Dominance: Codominant Intracranial Circulation: Anterior Circulation: Right ICA: No significant stenosis. Right MCA: No significant stenosis. Right KANIKA: No significant stenosis. Left ICA: No significant stenosis. Left MCA: No significant stenosis. Left KANIKA: No significant stenosis. Vertebrobasilar Circulation: Right vertebral artery:No significant stenosis. Left vertebral artery:No significant stenosis. Basilar artery: No significant stenosis. Right AERONAUTICS COMMISSION DIRECTOR: No significant stenosis. Left AERONAUTICS COMMISSION DIRECTOR: No significant stenosis. Aneurysm/AVM: None. Anterior communicating artery: Present. Posterior communicating arteries: Present. Loading Unit Operator Powder Charging (topogram) images: No additional findings. IMPRESSION: No large vessel occlusion or hemodynamically significant stenosis of the major arteries of head and neck. Arterial blood flow was measured to detect acute large vessel occlusion by computer aided detection software: Not Performed. Concordance between software and imaging review: Not Applicable. Funeral Pre Arrangement Specialist: PSCB Transcribe Date/Time: Dec 05 2024 5:15P Dictated by : MADYSON EDWARDS MD This examination was interpreted and the report reviewed and electronically signed by: MADYSON EDWARDS MD on Dec 05 2024 5:23PM EST [id number] CN Normal [facility] CTA NECK W IVCONon 5 CTA NECK W IVCON * * *Final Report* * * DATE OF EXAM: Dec 05 2024 5:12PM [facility] 0024 - CTA NECK W IVCON / PROCEDURE REASON: Focal neuro deficit, new, fixed, or worsening, < 4.5 hours, stroke suspected * * * * Physician Interpretation * * * * EXAMINATION: CTA HEAD W IVCON, CTA NECK W IVCON HISTORY: Stroke workup. TECHNIQUE: Spiral high resolution axial images were obtained through the head, neck and superior mediastinum following bolus administration of intravenous contrast for CT angiography. 3D maximum intensity projection images were created, reviewed and archived . MQ: CTAHN_4 Contrast: 100 mL Omnipaque [address] Radiation dose: Integrated Dose-Length Product (DLP) for this visit = 1599.48 mGy*cm. CT Dose Reduction Employed: Automated exposure control(AEC) and iterative recon COMPARISON: None. RESULT: BRAIN: Evaluation of the individual slices of the CTA demonstrates no evidence of an acute stroke. ASPECT Score = 10 Hemorrhage: No clear evidence of acute intracranial hemorrhage within the constraints of this contrast enhanced acquisition. ECASS hemorrhagic transformation score: Not Applicable NECK: Soft tissues: The soft tissue planes are maintained throughout. No evidence of a soft tissue mass in the neck or superior mediastinum. No significant lymphadenopathy is seen. Spine: Alignment is normal. No significant degenerative changes are present. Lung apices: The visualized lung apices are clear. CT ARTERIOGRAM: Extracranial Circulation: Aortic Arch: There is a normal branching pattern from the aortic arch. There is no significant stenosis in the proximal brachiocephalic vessels. Carotid Stenosis: Right Common: No significant stenosis. Right Internal Carotid Plaque: No significant plaque formation. Right Internal Carotid Stenosis (% by NASCET Criteria): No significant stenosis Left Common: No significant stenosis. Left Internal Carotid Plaque: No significant plaque formation. Left Internal Carotid Stenosis (% by NASCET Criteria): No significant stenosis Cervical Vertebral Arteries: Patency: Bilateral Dominance: Codominant Intracranial Circulation: Anterior Circulation: Right ICA: No significant stenosis. Right MCA: No significant stenosis. Right KANIKA: No significant stenosis. Left ICA: No significant stenosis. Left MCA: No significant stenosis. Left KANIKA: No significant stenosis. Vertebrobasilar Circulation: Right vertebral artery:No significant stenosis. Left vertebral artery:No significant stenosis. Basilar artery: No significant stenosis. Right AERONAUTICS COMMISSION DIRECTOR: No significant stenosis. Left AERONAUTICS COMMISSION DIRECTOR: No significant stenosis. Aneurysm/AVM: None. Anterior communicating artery: Present. Posterior communicating arteries: Present. Loading Unit Operator Powder Charging (topogram) images: No additional findings. IMPRESSION: No large vessel occlusion or hemodynamically significant stenosis of the major arteries of head and neck. Arterial blood flow was measured to detect acute large vessel occlusion by computer aided detection software: Not Performed. Concordance between software and imaging review: Not Applicable. Funeral Pre Arrangement Specialist: ERIC Transcribe Date/Time: Dec 05 2024 5:15P Dictated by : MADYSON EDWARDS MD This examination was interpreted and the report reviewed and electronically signed by: MADYSON EDWARDS MD on Dec 05 2024 5:23PM EST [id number] CN Normal [facility] ECG COMPLETEon 12-05-2024 ECG COMPLETE Ventricular Rate : 65 BPM Atrial Rate : 65 BPM P-R Interval : 166 ms QRS Duration : 76 ms Q-T Interval : 428 ms QTC Calculation(Bazett) : 445 ms Calculated P [place] : 30 degrees Calculated R [place] : 16 degrees Calculated T [place] : 22 degrees NORMAL SINUS RHYTHM NORMAL ECG NO PREVIOUS ECGS AVAILABLE Confirmed by MD JURADO VINAYAK ([id number]) on 12/06/2024 8:27:57 AM NAME : ANGELITA MARLEY PID : [id number] : 1995 Gender : Female Race : ORD : [id number] Procedure Date : Dec 05 2024 16:14:13 Edit Date : Dec 06 2024 08:28:01 Diagnosis: NORMAL SINUS RHYTHM NORMAL ECG NO PREVIOUS ECGS AVAILABLE Confirmed by MD JURADO VINAYAK ([id number]) on 12/06/2024 8:27:57 AM Test Reason : Stroke Location : 191 : LDCARD ED Overread By : MD JURADO VINAYAK Edited By : MD JURADO VINAYAK Referred By : , Acquired by : TASHA KENNEDY [facility] ECG COMPLETE Ventricular Rate : 56 BPM Atrial Rate : 56 BPM P-R Interval : 138 ms QRS Duration : 80 ms Q-T Interval : 434 ms QTC Calculation(Bazett) : 418 ms Calculated P [place] : 6 degrees Calculated R [place] : 22 degrees Calculated T [place] : 31 degrees SINUS BRADYCARDIA OTHERWISE NORMAL ECG Confirmed by BROOKE NEUMANN MD ([id number]) on 01/18/2025 12:21:00 PM NAME : ANGELITA MARLEY PID : [id number] : 1995 Gender : Female Race : ORD : [id number] Procedure Date : Dec 05 2024 08:29:35 Edit Date : Jan 18 2025 12:29:53 Diagnosis: SINUS BRADYCARDIA OTHERWISE NORMAL ECG Confirmed by BROOKE NEUMANN MD ([id number]) on 01/18/2025 12:21:00 PM Test Reason : Location : 314 : J14 Overread By : BROOKE NEUMANN MD Edited By : BROOKE NEUMANN MD Referred By : MUNIR ALLISON Acquired by : MRAYLU CARBALLO [facility] ECHO WITH AGITATED SALINE CO NTRASTon 12-05-2024 ECHO WITH AGITATED SALINE CONTRAST Echocardiography Report: Transthoracic Echo [facility] [id number] Date of service: 12/05/2024 1:30:34 PM LINE [facility]EM[place] Ordering physician: ADRIANE GONZALES Exam indication: Limited to assess LV function and shunt flow Technologist: Nati Humphries and Rsahmi Serra [facility] Interpreting physician: Zamzam Santos MD PATIENT: Name: MS. ANGELITA MARLEY : 1995 Age: 29 years Gender: F Primary rhythm: sinus. Height: 157.50 cm BSA: 1.76 m Weight: 70.58 kg BMI: 28.5 kg/m Heart rate 50 bpm Blood pressure 133/91 mmHg Agitated saline was administered to rule out shunt [clips: 41-42]. Color Doppler was utilized to interrogate the cardiac valves assessed and spectral Doppler was utilized to determine the flow velocities and pressure gradients reported in this exam. Myocardial strain analysis was performed in this exam to aid in the assessment of cardiac function. MEASUREMENTS: Value Indexed Normal LV ID (diastole) 4.5 cm (2D) 2.56 cm/m LV ID (systole) 2.6 cm (2D) 1.48 cm/m IVS, leaflet tips 0.7 cm (2D) Posterior wall thickness 0.6 cm (2D) Left ventricular mass 87 g (2D) 50 g/m Global peak long strain -20.9 % LV stroke volume 65 ml (2D biplane) LV end diastolic volume 104 ml (2D biplane) 59.0 ml/m 29<=EDVi<62 LV end systolic volume 39 ml (2D biplane) 22.2 ml/m Ejection Fraction 62 % (2D biplane) EF > 54 FINDINGS: LEFT VENTRICLE The left ventricle is normal in size. Left ventricular systolic function is normal. Global LV myocardial strain is normal. Left ventricular diastolic function was not evaluated due to Limited. Mitral annular lateral E/e': 6.1. Mitral annular septal E/e': 6.8. Wall Motion: All scored segments are normal. RIGHT VENTRICLE MITRAL VALVE There is trace mitral valve regurgitation. There is mild thickening. The pressure half time is 79 msec. The peak mitral E/A ratio is 2.23. The average mitral E/e' ratio is 6.5. The mitral flow deceleration time is 271 msec. TRICUSPID VALVE There is mild (1+) tricuspid valve regurgitation. There is no thickening. AORTIC VALVE There is trace aortic valve regurgitation. PULMONIC VALVE The pulmonic valve was not seen or not interrogated. PULMONARY ARTERIES The pulmonary arteries are unseen or not interrogated. INTERATRIAL SEPTUM There is no evidence of intracardiac shunting as detected by Doppler, agitated saline contrast and agitated saline contrast following the Valsalva maneuver. PERICARDIUM There is no pericardial effusion. CONCLUSIONS: - Exam indication: Limited to assess LV function and shunt flow - The left ventricle is normal in size. Left ventricular systolic function is normal. EF = 62 5% (2D biplane) Left ventricular diastolic function was not evaluated due to Limited. - Agitated saline was administered to rule out shunt [clips: 41-42]. There is no evidence of intracardiac shunting as detected by Doppler, agitated saline contrast and agitated saline contrast following the Valsalva maneuver. - Exam was compared with the prior CC echocardiographic exam performed on 10/30/2024. Negative saline study in today's exam. * * * Final * * * CC [employer] Image : [id number]. [id number] DynamicsSISUID Normal [facility] ED NOTEon 12-05-2024 ED NOTE HNO ID: [id number] Author: MARIA T DUQUE RN Service: ? Author Type: Registered Nurse Type: ED Notes Filed: 12/06/2024 16:17 Note Text: Patient Call Back Information How are you doing ? better Did we appropriately manage your pain? Yes Did you understand your discharge instructions? Yes Did you get your prescriptions filled? Were you able to make a follow-up appointment with your physician? No Were you comfortable during your stay here? Yes Did a member of the ER nursing team round on you during your visit? Yes You will receive a patient satisfaction survey in the mail in the nest 2 weeks, please take the time to fill out the survey as your input from your ER visit is very important to us. Yes Can we do anything else to help you? No Normal [facility] ED NOTE HNO ID: [id number] Author: MARIELENA RUSSELL RN Service: ? Author Type: Registered Nurse Type: ED Notes Filed: 12/05/2024 19:00 Note Text: Pt reports feeling much better. Denies questions/concerns Agrees to follow up as directed and or return to ED as needed [facility] ED NOTE HNO ID: [id number] Author: MARIELENA RUSSELL RN Service: ? Author Type: Registered Nurse Type: ED Notes Filed: 12/05/2024 18:10 Note Text: Pt c/o vomiting, small emesis [facility] ED NOTE HNO ID: [id number] Author: MARIELENA RUSSELL RN Service: ? Author Type: Registered Nurse Type: ED Notes Filed: 12/05/2024 16:17 Note Text: Pt arrives with steady gait stating I think I'm having a stroke Woke with headache this am at approx 0600, which has worsened. Denies OTC meds for headache Went to a cardiology appointment at [facility]. While driving home from [facility] approx 40 min ago began having difficulty getting words out and My vision started to go in and out while driving Pt placed on bus driver/monitor Dr Mo notified Speech is clear/fluent, moving all extremities without difficulty. Normal [facility] ED PROV NOTEon 12-05-2024 ED PROV NOTE HNO ID: [id number] Author: JUSTO MO MD Service: Emergency Medicine Author Type: Physician Type: ED Provider Notes Filed: 12/05/2024 18:31 Note Text: ED Provider Note Patient Name: Angelita Marley : 1995 SERVICE DATE: 12/05/24 History Patient presents with: expressive aphasia Angelita Marley is a 29 year old female with history of neurologic symptoms who presents with expressive aphasia . Patient took nothing for this prior to arrival. - Symptoms began 3 hours prior to arrival. - Severity: mild - Timing: intermittent - Quality: Patient started developing some right eye vision changes about 3 hours ago about 40 minutes ago developing difficulty finding words and expressing herself. - expressive aphasia is exacerbated by nothing. - expressive aphasia is not exacerbated by anything. - Symptoms are associated with over the past month as had visits to neurology MRI, echocardiogram and other stroke workups she has a finding on her MRI in the occipital lobe and is currently on baby aspirin. - Symptoms are not associated with chest pain and shortness of breath. - Improved by rest. - Not improved by anything Patient was seen at [facility] neurology in October had MRI done and is currently being worked up for strokelike symptoms she has had some vision changes she has seen ophthalmology for this she has had MRI she has had echocardiogram and bubble echo done she is currently on an aspirin a day. She was getting the bubble echo done today and started having some vision changes in the right eye she has also been having a headache all day which is not unusual. She then started developing troubles with finding words and she is driving home so she came to the emergency department to be evaluated. PAST MEDICAL HISTORY Diagnosis Date - anxiety - Asthma (HCC) sports induced. No attacks since age 16 - depression PAST SURGICAL HISTORY Procedure Laterality Date - INSERTION OF IUD 07/15/2020 Mirena - PAST SURGICAL HISTORY OF wisdom teeth and root canal - PAST SURGICAL HISTORY OF Right 03/09/2023 Heel spur removed and tendon cut for plantar fasciitis FAMILY HISTORY Problem Relation Age of Onset - Asthma Mother - other (Other tachycardia) Mother - other (Other, hernia surgery) Father - other (Other irregular heart rate) Father - No Known Problems Sister - Asthma Sister - No Known Problems Brother - Asthma Brother - Cancer Maternal Grandmother skin cancer - No Known Problems Maternal Grandfather - Heart Paternal Grandmother - other (benign tumor of ear) Paternal Grandmother - No Known Problems Paternal Grandfather - No Known Problems Son - Heart Attack Maternal Uncle 37 - Heart Attack Maternal Uncle Social History Tobacco Use - Smoking status: Never - Smokeless tobacco: Never Vaping Use - Vaping status: Never Used Substance and Sexual Activity - Alcohol use: Not Currently Comment: occasionally but not while - Drug use: No - Sexual activity: Yes Partners: Male ALLERGIES Allergen Reactions - Amoxicillin Unknown When she was a child - Dicyclomine Intolerance Patient reports causes migraines - Seasonal Allergies Itching Review of Systems Constitutional: Negative for chills and fever. Eyes: Positive for visual disturbance. Negative for photophobia and pain. Respiratory: Negative for chest tightness and shortness of breath. Cardiovascular: Negative for chest pain and palpitations. Gastrointestinal: Positive for nausea. Negative for vomiting. Musculoskeletal: Negative for back pain and neck pain. Allergic/Immunologic : Negative for environmental allergies, food allergies and immunocompromised state. Neurological: Positive for speech difficulty, numbness and headaches. Negative for dizziness, syncope, weakness and light-headedness. Psychiatric/Behavior al: Negative for confusion. The patient is nervous/anxious. Physical Exam Vitals BP Pulse Temp Temp src Resp SpO2 Weight Height 12/05/24 1600 12/05/24 1600 12/05/24 1542 12/05/24 1542 12/05/24 1600 12/05/24 1600 12/05/24 1542 -- 122/87 70 36.6 ?C (97.8 ?F) Temporal 13 100 % 70.3 kg (155 lb) Physical Exam Constitutional: General: She is not in acute distress. Appearance: Normal appearance. She is not ill-appearing, toxic-appearing or diaphoretic. HENT: Head: Normocephalic and atraumatic. Eyes: General: No scleral icterus. Extraocular Movements: Extraocular movements intact. Pupils: Pupils are equal, round, and reactive to light. Cardiovascular: Pulses: Normal pulses. Pulmonary: Effort: Pulmonary effort is normal. No respiratory distress. Breath sounds: Normal breath sounds. Skin: General: Skin is warm and dry. Capillary Refill: Capillary refill takes less than 2 seconds. Findings: No rash. Neurological: General: No focal deficit present. Mental Status: She is alert and oriented to person, place, an (more content not included)... Normal [facility] HCG Preg Ur Qlon 12-05-2024 HCG ( test) Ql (U) Negative Normal Negative [facility] Comment on above: Order Comment: Speci men Type: URINE SPECIMENOrdering Facility: [facility] Address: [address] [place] [address] Result Comment: This test is intended to aid in the early detection of . Very dilute urine samples, as indicated by a low specific gravity, may not contain account development representative levels of hCG. This test detects intact hCG only. This test does not reliably detect hCG degradation products, including free-beta subunit and beta-core fragment. Therefore, this test may show reduced reactivity in urine after 8 weeks gestation. A number of conditions other than , including trophoblastic disease and certain non-trophoblastic neoplasms cause elevated levels of hCG. As with any assay employing mouse antibodies, the possibility exists for interference by human anti-mouse antibodies (HAMA) in the specimen. The test provides a presumptive diagnosis for . Performed By: #### 2 106-3 ####[facility] RooT LABVerdezyneIA [id number] [place] [id number] [place] [facility] HIGH SENSITIVITY TROPONIN To n 12-05-2024 Troponin T.cardiac High sensitivity method [Mass/Vol] <6 Normal <12 [facility] Comment on above: Order Comment: Speci men Type: BLOOD SPECIMENOrdering Facility: [facility] Address: [address] [place] [address] Performed By: #### H STNT ####[facility] [employer] LABCLIA [id number] [place] [address] [place] PT panel Coag (PPP)on 2024 INR Coag (PPP) [Relative time] 1.0 {INR} Normal 0.9-1.3 [facility] Comment on above: Order Comment: Leona dalal Type: BLOOD SPECIMENOrdering Facility: [facility] Address: [address] [place] [address] Result Comment: Barbara min K Antagonist (VKA) Therapeutic Range: INR 2 to 3 (Target INR of 2.5) Note: For patients treated with VKA drugs, such as warfarin, the [place] [employer] 2012 Guideline recommends a therapeutic INR range of 2 to 3 (target INR of 2.5). This recommendation includes high-risk patients with antiphospholipid syndrome with previous arterial or venous thromboembolism, current-generation mechanical or bioprosthetic aortic heart valve replacement. Note: Patients with mechanical aortic valve replacement and additional risk factors for thromboembolic events (atrial fibrillation, previous thromboembolism, LV dysfunction, hypercoagulable conditions) or an older generation mechanical AVR (i.e., ball in-Cage) or any mechanical MVR should have a INR therapeutic range of 2.5 to 3.5 (target INR of 3). Lasha COLORADO, et al. Chest 2012, 141:7S-47S North RA, et al. [facility] 2017, 70: 252-289 Performed By: #### 3 4528-0, 65201-3 ####[facility] [employer] LABCLIA [id number] [place] [address] [place] PT Coag (PPP) [Time] 10.6 s Normal <13.1 [facility] Comment on above: Order Comment: Leona dalal Type: BLOOD SPECIMENOrdering Facility: [facility] Address: [address] [place] [address] Performed By: #### 3 4528-0, 14312-9 ####[facility] [employer] LABCLIA [id number] [place] [address] [place] aPTT PPPon 12-05-2024 aPTT Coag (PPP) [Time] 26.4 s Normal 23.0-32.4 [facility] Comment on above: Order Comment: Leona dalal Type: BLOOD SPECIMENOrdering Facility: [facility] Address: [address] [place] [address] Performed By: #### 3 4528-0, 05907-6 ####[facility] LABCLIA [id number] [address] BETA 2 GLYCOPROTEIN, IGGon 0 11-22-2024 Beta 2 glycoprotein 1 IgG IA Qn <9 Normal <20 [facility] Comment on above: Order Comment: Speci men Type: BLOOD SPECIMENOrdering Facility: [facility] Address: [address] [place] [address] Result Comment: <20 SGU Negative 20-80 SGU Low Positive >80 SGU High Positive These results were obtained with the [employer] QUANTA Lite B2 GPI IgG ZEUS. B2 GPI IgG values obtained with different manufacturers' assay methods may not be used interchangeably. The magnitude of the reported IgG levels cannot be correlated to an endpoint titer. Performed By: #### 5 076-5, CARDIEliezer CARDIM, BETA2G, BETA2M ####[facility] LABCLIA [id number] [address] OF [facility] Performed By: #### B ETA2G, BETA2M ####[facility] LABCLIA [id number] [address] BETA 2 GLYCOPROTEIN, IGMon 0 11-22-2024 Beta 2 glycoprotein 1 IgM IA Qn <9 Normal <20 [facility] Comment on above: Order Comment: Speci men Type: BLOOD SPECIMENOrdering Facility: [facility] Address: [address] [place] [address] Result Comment: <20 SMU Negative 20-80 SMU Low Positive >80 SMU High positive These results were obtained with the [employer] QUANTA Lite B2 GPI IgM ZEUS. B2 GPI IgM values obtained with different manufacturers' assay methods may not be used interchangeably. The magnitude of the reported IgM levels cannot be correlated to an endpoint titer. Performed By: #### 5 076-5, CARDIG, CARDIM, BETA2G, BETA2M ####[facility] LABCLIA [id number] [address] Performed By: #### B ETA2G, BETA2M ####[facility] [id number] [address] CARDIOLIPIN IGG ABSon 2024 Cardiolipin IgG IA Qn (S) <9.0 Normal <15.0 [facility] Comment on above: Order Comment: Speci men Type: BLOOD SPECIMENOrdering Facility: [facility] Address: [address] [place] [address] Result Comment: <15 GPL Negative 15-20 GPL Indeterminate >20 GPL Positive The following results were obtained with the [employer] QUANTA Lite KANIKA IgG III ZEUS. Cardiolipin IgG values obtained with the different manufacturers' assay methods may not be used interchangeably. The magnitude of the reported IgG levels cannot be correlated to an endpoint titer. Performed By: #### 5 076-5, AMINATA MCELROY, BETA2G, BETA2M ####[facility] [id number] [address] CARDIOLIPIN IGM ABSon 2024 Cardiolipin IgM IA Qn (S) 13.2 MPL High <12.5 [facility] Comment on above: Order Comment: Speci men Type: BLOOD SPECIMENOrdering Facility: [facility] Address: [address] [place] [address] Result Comment: <12. 5 MPL Negative 12.5-20 MPL Indeterminate >20 MPL Positive The following results were obtained with the [employer] QUANTA Lite KANIKA IgM III ZEUS. Cardiolipin IgM values obtained with the different manufacturers' assay methods may not be used interchangeably. The magnitude of the reported IgM levels cannot be correlated to an endpoint titer. ??? Performed By: #### 5 076-5, NAVI CARDIM, BETA2G, BETA2M ####[facility] LABIA [id number] [address] [place] CNOVon 11-22-2024 CNOV Office Visit ([id number]) ANGELITA MARLEY ([id number]) 1995 F Date Time Provider Department 11/22/24 12:00 PM FLAVIO NAVARRETE [id number] During your visit today, we recorded the following information about you: Pulse Respiration Blood pressure Weight 80/minute 14/minute 125/71 70.3 kg Height 1.575 m Flavio Navarrete MD 11/22/2024 5:13 PM Signed [facility] Initial Visit Consultation is requested by: Ara Cox [address] [facility] [address] PCP: Cecile Luis [address] [place] [address] [facility] History of Event: Reason for visit (patient's understanding): Referral Specific Question for today: Prevention, Prognosis? Will she get back to her baseline? 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 Looses complete sight in L eye when she gets dizzy. Memory issues (short). 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 From 11/08/24, she has been having blurry vision, headache, bilateral arms/hands paresthesia, pulsatile tinnitus. Also reports photophobia and nausea with headache - reported worse than her usual migraine. 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 She had MRI brain w/wo contrast 11/08/24 and 11/14/24 which showed left median occipital area T2/FLAIR change without obvious enhancement nor any changes in between those 2 images. No acute stroke was seen. Today, she visited clinic by herself. 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 She went to the ER, where blood work, chest X-ray, and EKG were performed. All results were normal except for an elevated D-dimer of 1800 ng/mL. A chest CT with contrast was also normal, and she was discharged. Later that day, she went to a different ER due to persistent dizziness, feeling out of it, and weakness in both hands, more pronounced in the left. She was evaluated for cardiac issues, found to be normal, and discharged. On November 08, she noticed difficulty seeing while driving and felt she had to move her head to right more to see. At work, an OCT showed mild optic nerve swelling, and visual field testing revealed right-sided field loss. She also began experiencing shooting headaches starting at the base of her neck and radiating upward, primarily on the left side. These headaches last from a few minutes to most of the day and are different from her usual migraines, which are more temporal and relieved by napping and taking Benadryl. Over the past two weeks, her right-sided visual field loss has improved, but she now reports new left-sided visual field loss, describing it as a bailey shape around her eye. She also notes increased light sensitivity, requiring sunglasses, which is new for her. She does not endorse fluctuating vision loss. She has experienced tinnitus, described as a weird sound on the right side, which began around the same time as her chest pain and has been constant for the past month. She also reports ongoing tingling and numbness in both arms and hands, with a recent increase in left arm numbness and perceived weakness. She underwent carpal tunnel testing earlier this year. She describes feeling foggy and slow in her head, though others do not notice this. She also reports generalized body pain and difficulty distinguishing between her usual menstrual symptoms and her current symptoms. She has experienced severe headaches that reach maximum intensity within seconds, triggered by bright lights, occurring 4-5 times in the past two weeks and previously 2-3 times per month over the past two years. She has a history of chest pain since August, leading to three ER visits. Workups, including EKGs, echocardiogram, blood wor (more content not included)... Normal [facility] CRP SerPl-ncon 11-22-2024 CRP [Mass/Vol] mg/L Normal <0.9 [facility] Comment on above: Order Comment: Leona dalal Type: BLOOD SPECIMENOrdering Facility: [facility] Address: [address] [place] [address] Performed By: #### 1 988-5, 21225-0 ####[facility] LABCLIA [id number] [place] [address] [place] Cardiolipin IgA Ser IA-aCnco n 11-22-2024 Cardiolipin IgA IA Qn (S) <9.0 Normal <12.0 [facility] Comment on above: Order Comment: Leona dalal Type: BLOOD SPECIMENOrdering Facility: [facility] Address: [address] [place] [address] Result Comment: <12 APL Negative 12-20 APL Indeterminate >20 APL Positive The following results were obtained with the DimensionU (formerly Tabula Digita) QUANTA Lite KANIKA IgA III ZEUS. Cardiolipin IgA values obtained with the different manufacturers' assay methods may not be used interchangeably. The magnitude of the reported IgA levels cannot be correlated to an endpoint titer. Performed By: #### 5 076-5, CARDIG, CARDIM, BETA2G, BETA2M ####[facility] LABCLIA [id number] [place] [id number] [place] HYPERCOAG PANELon 11-22-2024 Activated protein C resistance Coag (PPP) [Time ratio] 6.53 Ratio Normal >=2.90 [facility] Comment on above: Order Comment: Speci men Type: BLOOD SPECIMENOrdering Facility: [facility] Address: [address] [place] [address] Performed By: #### 4 0647-0, [id number], HCOAG, 6303-2 ####[facility] LABCLIA [id number] [place] [address] [place] Antithrombin actual/normal Chromogenic method (PPP) [Rel catalytic activity/Vol] 117 % Normal 84-138 [facility] Comment on above: Order Comment: Speci men Type: BLOOD SPECIMENOrdering Facility: [facility] Address: [address] [place] [address] Performed By: #### 4 0647-0, [id number], HCOAG, 6303-2 ####[facility] LABCLIA [id number] [place] [address] [place] aPTT Coag (Bld) [Time] 30.3 s Normal 24.0-35.1 [facility] Comment on above: Order Comment: Speci men Type: BLOOD SPECIMENOrdering Facility: [facility] Address: [address] [place] [address] Performed By: #### 4 0647-0, [id number], HCOAG, 6303-2 ####[facility] LABIA [id number] [address] [place] aPTT W excess hexagonal phase phospholipid Coag (PPP) [Time] 49.4 seconds Normal 34.0-51.8 [facility] Comment on above: Order Comment: Speci men Type: BLOOD SPECIMENOrdering Facility: [facility] Address: [address] [place] [address] Performed By: #### 4 0647-0, [id number], HCOAG, 6303-2 ####[facility] LABCLIA [id number] [address] [place] Coagulation factor VIII activity actual/normal Coag (PPP) [Relative time] 141 % Normal 50-173 [facility] Comment on above: Order Comment: Speci men Type: BLOOD SPECIMENOrdering Facility: [facility] Address: [address] [place] [address] Performed By: #### 4 0647-0, [id number], HCOAG, 6303-2 ####[facility] LABIA [id number] [address] [place] Coagulation factor X activated act Coag Qn (PPP) <0.10 Normal <0.10 [facility] Comment on above: Order Comment: Speci men Type: BLOOD SPECIMENOrdering Facility: [facility] Address: [address] [place] [address] Result Comment: This test was developed, and its performance characteristics determined by the [facility] Department of Pathology and Laboratory Medicine. It has not been cleared or approved by the FDA. The [facility] Department of Pathology and Laboratory Medicine is regulated under CLIA as qualified to perform high-complexity testing. This test is used for clinical purposes. It should not be regarded as investigational or for research. This test was developed, and its performance characteristics determined by the [facility] Department of Pathology and Laboratory Medicine. It has not been cleared or approved by the FDA. The [facility] Department of Pathology and Laboratory Medicine is regulated under CLIA as qualified to perform high-complexity testing. This test is used for clinical purposes. It should not be regarded as investigational or for research. Performed By: #### 4 0647-0, [id number], HCOAG, 6303-2 ####[facility] LABCLIA [id number] [place] [id number] [place] Delta dRVVT Coag (PPP) [Time diff] 8.5 delta seconds High <7.1 [facility] Comment on above: Order Comment: Speci men Type: BLOOD SPECIMENOrdering Facility: [facility] Address: [address] [place] [address] Performed By: #### 4 0647-0, [id number], HCOAG, 6303-2 ####[facility] LABCLIA [id number] [place] [id number] [place] dRVVT W excess hexagonal phase phospholipid actual/normal Coag (PPP) [Relative time] 40.9 seconds Normal 34.2-47.9 [facility] Comment on above: Order Comment: Speci men Type: BLOOD SPECIMENOrdering Facility: [facility] Address: [address] [place] [address] Performed By: #### 4 0647-0, [id number], HCOAG, 3-2 ####[facility] LABIA [id number] [place] [address] [place] FIBRINOGEN ACTIVITY 292 mg/dL Normal 200-400 [facility] Comment on above: Order Comment: Speci men Type: BLOOD SPECIMENOrdering Facility: [facility] Address: [address] [place] [address] Performed By: #### 4 0647-0, [id number], HCOAG, 3-2 ####[facility] LABCLIA [id number] [place] [address] [place] Protein C actual/normal Coag (PPP) [Relative time] 105 % Normal 76-147 [facility] Comment on above: Order Comment: Speci men Type: BLOOD SPECIMENOrdering Facility: [facility] Address: [address] [place] [address] Performed By: #### 4 0647-0, [id number], HCOAG, 6303-2 ####[facility] LABCLIA [id number] [place] [id number] [place] Protein S actual/normal Coag (PPP) [Relative time] 114 % Normal 59-152 [facility] Comment on above: Order Comment: Speci men Type: BLOOD SPECIMENOrdering Facility: [facility] Address: [address] [place] [address] Performed By: #### 4 0647-0, [id number], HCOAG, 6303-2 ####[facility] LABCLIA [id number] [place] [address] [place] PT Coag (Bld) [Time] 13.3 s Normal 11.6-14.4 [facility] Comment on above: Order Comment: Speci men Type: BLOOD SPECIMENOrdering Facility: [facility] Address: [address] [place] [address] Performed By: #### 4 0647-0, [id number], HCOAG, 6303-2 ####[facility] LABIA [id number] [place] [address] [place] Thrombin time Coag (PPP) [Time] <16.8 Normal <18.6 [facility] Comment on above: Order Comment: Speci men Type: BLOOD SPECIMENOrdering Facility: [facility] Address: [address] [place] [address] Performed By: #### 4 0647-0, [id number], HCOAG, 6303-2 ####[facility] LABIA [id number] [place] [address] [place] HYPERCOAG PANEL INTERPon INTERPRETATION (HYPERCOAG) Normal [facility] Comment on above: Order Comment: Speci men Type: BLOOD SPECIMENOrdering Facility: [facility] Address: [address] [place] [address] Result Comment: Abno rmal - see comment below. SIGNIFICANT FINDINGS: - Lupus Anticoagulant: Unlikely A laboratory evaluation for congenital and acquired risk factors for thrombophilia was performed. Both the PT and APTT results are normal. The thrombin time and anti-Xa screen were normal. No heparin, anti-Xa or direct thrombin inhibitor drug effect is present. LUPUS ANTICOAGULANT STUDIES: Since only a single phospholipid-dependent assay is positive without a positive screening test, a lupus anticoagulant is unlikely. The criteria for the diagnosis of a Lupus Anticoagulant, as detailed by the Subcommittee on Lupus Anticoagulants and Anti-Phospholipid Antibodies of the Scientific and Standardization Committee of the International Society on Thrombosis and Haemostasis (ISTH), are the following: (1) A prolonged phospholipid-dependent clotting test (screening test); (2) Evidence for an inhibitor (1:1 mix of patient:normal plasma); (3) Evidence that the inhibitor is phospholipid dependent and (4) Exclusion of specific inhibitors (ie, fVIII inhibitors, direct thrombin inhibitors, or heparin). Thromb. Haemost. 74:1185 (1994). ANTIPHOSPHOLIPID ANTIBODY STUDIES: The IgM Cardiolipin antibody titer is minimally elevated, this is of doubtful clinical significance. The IgG and IgA Cardiolipin antibody titers were all negative. The IgG and IgM Beta-2 Glycoprotein I antibody titers were negative. Antiphospholipid syndrome (APS) is present if at least one clinical criteria and one laboratory criteria are met. The clinical criteria for APS include the presence of vascular thrombosis or morbidity. The laboratory criteria for APS include positive testing for one of the following on two or more occasions, at least 12 weeks apart: (1) lupus anticoagulant; (2) anticardiolipin IgG or IgM in medium or high titer (>20 GPL or >20 MPL); (3) anti-beta 2 glycoprotein I IgG or IgM antibody. J. Thromb Haemost 4:295 (2006). PROTEIN STUDIES: The levels of protein C (functional), protein S (clottable) , antithrombin (functional), fibrinogen, factor VIII (clottable), and C-reactive protein are normal. GENOTYPING STUDIES: The activated protein C resistance ratio (APC-R) is normal. The Factor V Leiden mutation, a c.1601G>A variant (legacy name R506Q) in the Factor V (F5) gene, is unlikely. The patient is negative for the c.*97G>A variant (legacy name 14109T>A) in the 3' untranslated region of the Factor II (F2) prothrombin gene. This result is not associated with an increased risk of thromboembolic disease. Please refer to the interpretation provided with the PT Gene Mutation result for further diagnostic and prognostic information. Please correlate these laboratory results with clinical findings and medication history. Performed By: #### 4 0647-0, [id number], HCOAG, 6303-2 ####[facility] LABCLIA [id number] [facility] [place] [id number] [facility] [place] Pathologist name Reviewed by Kemi Gonzalez DO, MPH Normal [facility] Comment on above: Order Comment: Speci men Type: BLOOD SPECIMENOrdering Facility: [facility] Address: [address] [place] [address] Performed By: #### 4 0647-0, [id number], HCOAG, 6303-2 ####[facility] LABCLIA [id number] [facility] [address], [address] [place] HbA1c (Bld)on 11-22-2024 Average glucose Estimated from glycated hemoglobin (Bld) [Mass/Vol] 74 mg/dL Normal [facility] Comment on above: Order Comment: [facility] Type: BLOOD SPECIMENOrdering Facility: [facility] Address: [address] [place] [address] Result Comment: eAG: (Estimated average glucose) is a calculated value from HgbA1c and is account development representative of the average blood glucose level in the last 2-3 month period. Performed By: #### 5 5454-3 ####[facility] LABCLIA [id number] [address] HbA1c (Bld) [Mass fraction] 4.2 % Low 4.3-5.6 [facility] Comment on above: Order Comment: Speci [facility] Type: BLOOD SPECIMENOrdering Facility: [facility] Address: [address] [place] [address] Result Comment: Amer ican Diabetes Association guidelines indicate that patients with HgbA1c in the range 5.7-6.4% are at increased risk for development of diabetes, and intervention by lifestyle modification may be beneficial. HgbA1c greater or equal to 6.5% is considered diagnostic of diabetes. Performed By: #### 5 5454-3 ####[facility] LABCLIA [id number] [address] [address] [place] Lipid 1996 panelon 5 Cholesterol [Mass/Vol] 228 mg/dL High <200 [facility] Comment on above: Order Comment: Speci men Type: BLOOD SPECIMENOrdering Facility: [facility] Address: [address] [place] [address] Result Comment: <200 mg/dL, Desirable 200-239 mg/dL, Borderline high >239 mg/dL, High Performed By: #### 1 988-5, 44674-0 ####[facility] LABCLIA [id number] [address] [place] Cholesterol in HDL [Mass/Vol] 43 mg/dL Normal >39 [facility] Comment on above: Order Comment: Speci men Type: BLOOD SPECIMENOrdering Facility: [facility] Address: [address] [place] [address] Result Comment: 40-5 9 mg/dL, Acceptable >59 mg/dL, High: Negative risk factor for coronary heart disease <40 mg/dL, Low: Positive risk factor for coronary heart disease Performed By: #### 1 988-5, 96073-0 ####[facility] LABIA [id number] [address], [address] STATES [facility] Cholesterol in LDL [Mass/Vol] 164 mg/dL High <100 [facility] Comment on above: Order Comment: Speci men Type: BLOOD SPECIMENOrdering Facility: [facility] Address: [address] [place] [address] Result Comment: <100 mg/dL, Optimal 100-129 mg/dL, Near optimal/above optimal 130-159 mg/dL, Borderline high 160-189 mg/dL, High >189 mg/dL, Very high Secondary prevention optimal LDL Cholesterol levels are recommended to be <70 mg/dL LDL cholesterol is calculated using the Staples-NIH equation. Performed By: #### 1 988-5, 99037-5 ####[facility] LABCLIA [id number] [address] [place] [address] [place] Cholesterol in LDL/Cholesterol in HDL [Mass ratio] 3.81 {ratio} High <2.54 [facility] Comment on above: Order Comment: Maggiejerry dalal Type: BLOOD SPECIMENOrdering Facility: [facility] Address: [address] [place] [address] Result Comment: Dario sherman: 1. National Cholesterol Education Program ATP III Guideline At-A-Glance Quick Desk Reference: National Heart, Lung, and Blood [place]. National Institutes of Health. 2001: NIH Publication No. 01-3305. 2. An International Atherosclerosis Society position paper: global recommendations for the management of dyslipidemia: executive summary, Atherosclerosis. 2014: 232(2):410-413. Performed By: #### 1 988-5, 47900-7 ####[facility] LABCLIA [id number] [place] [address] [place] Cholesterol in VLDL [Mass/Vol] 22 mg/dL Normal <30 [facility] Comment on above: Order Comment: Maggiei katlin Type: BLOOD SPECIMENOrdering Facility: [facility] Address: [address] [place] [address] Performed By: #### 1 988-5, 85993-9 ####[facility] LABIA [id number] [place] [address] [place] Cholesterol non HDL [Mass/Vol] 185 mg/dL High <130 [facility] Comment on above: Order Comment: Leona dalal Type: BLOOD SPECIMENOrdering Facility: [facility] Address: [address] [place] [address] Result Comment: <130 mg/dL, Optimal 130-159 mg/dL, Near optimal/above optimal 160-189 mg/dL, Borderline high 190-219 mg/dL, High >219 mg/dL, Very high Secondary prevention optimal non HDL Cholesterol levels are recommended to be <100 mg/dL Performed By: #### 1 988-5, 61052-5 ####[facility] LABCLIA [id number] [place] [id number] [place] Cholesterol.total/Choles terol in HDL [Mass ratio] 5.30 {ratio} High <5.10 [facility] Comment on above: Order Comment: Speci men Type: BLOOD SPECIMENOrdering Facility: [facility] Address: [address] [place] [address] Performed By: #### 1 988-5, 51429-0 ####[facility] LABCLIA [id number] [place] [address] [place] FASTING TIME 12 hrs Normal [facility] Comment on above: Order Comment: Speci men Type: BLOOD SPECIMENOrdering Facility: [facility] Address: [address] [place] [address] Performed By: #### 1 988-5, 09688-9 ####[facility] LABCLIA [id number] [place] [address] [place] Triglyceride [Mass/Vol] 116 mg/dL Normal <150 [facility] Comment on above: Order Comment: Speci men Type: BLOOD SPECIMENOrdering Facility: [facility] Address: [address] [place] [address] Result Comment: <150 mg/dL, Normal 150-199 mg/dL, Borderline high 200-499 mg/dL, High >499 mg/dL, Very high Performed By: #### 1 988-5, 38728-1 ####[facility] LABCLIA [id number] [place] [address] [place] Lupus anticoagulant neutrali zation platelet Coag Ql (PPP)on 11-22-2024 aPTT Coag (Bld) [Time] 38.7 s Normal 30.2-43.0 [facility] Comment on above: Order Comment: Speci men Type: BLOOD SPECIMENOrdering Facility: [facility] Address: [address] [place] [address] Result Comment: This test was developed, and its performance characteristics determined by the [facility] Department of Pathology and Laboratory Medicine. It has not been cleared or approved by the FDA. The [facility] Department of Pathology and Laboratory Medicine is regulated under CLIA as qualified to perform high-complexity testing. This test is used for clinical purposes. It should not be regarded as investigational or for research. Performed By: #### 4 0647-0, [id number], HCOAG, 6303-2 ####[facility] LABCLIA [id number] [facility] [address] [address] [place] aPTT Coag (Bld) [Time] 35.8 s Normal 31.5-38.3 [facility] Comment on above: Order Comment: Speci men Type: BLOOD SPECIMENOrdering Facility: [facility] Address: [address] [place] [address] Result Comment: This test was developed, and its performance characteristics determined by the [facility] Department of Pathology and Laboratory Medicine. It has not been cleared or approved by the FDA. The [facility] Department of Pathology and Laboratory Medicine is regulated under CLIA as qualified to perform high-complexity testing. This test is used for clinical purposes. It should not be regarded as investigational or for research. Performed By: #### 4 0647-0, [id number], HCOAG, 6303-2 ####[facility] LABIA [id number] [place] [id number] [place] [facility] PLATELET NEUT 1.5 Seconds Normal <1.9 [facility] Comment on above: Order Comment: Speci men Type: BLOOD SPECIMENOrdering Facility: [facility] Address: [address] [place] [address] Result Comment: This test was developed, and its performance characteristics determined by the [facility] Department of Pathology and Laboratory Medicine. It has not been cleared or approved by the FDA. The [facility] Department of Pathology and Laboratory Medicine is regulated under CLIA as qualified to perform high-complexity testing. This test is used for clinical purposes. It should not be regarded as investigational or for research. Performed By: #### 4 0647-0, [id number], HCOAG, 6303-2 ####[facility] LABCLIA [id number] [facility] [address] [address] [place] PROTHROMBIN GENE PCRon 11-22 PROTHROMBIN GENE MUTATION Normal [facility] Comment on above: Order Comment: Speci men Type: BLOOD SPECIMENOrdering Facility: [facility] Address: [address] [place] [address] Result Comment: Prot hrombin Gene Mutation Laboratory Accession Number: [id number] Result: NORMAL Interpretation: The DNA sample is negative for the c.*97G>A variant (legacy name 91102Q>A) in the 3' untranslated region of the Factor II (F2) gene. This result is not associated with an increased risk of thromboembolic disease. Thromboembolic disease is a multifactorial disorder and other causes are not excluded by this result. Methodology: Isolated Genomic DNA from the patient's blood specimen is evaluated for the c*97G>A ([id number]) variant of the F2 gene [RefSeq NM_000506.53;GRCh38/hg38] by multiplex polymerase chain reaction (PCR) followed by melting curve analysis. Limitations: This assay is designed to detect the c.*97G>A (21341Q>A) variant in the F2 gene. Uncommon variants or single nucleotide polymorphisms may affect binding of probes and may rarely result in false negative, false positive or indeterminate results. This assay does not detect other disease-associated rare variants in F2 or other causes of thromboembolic disease. Disclaimer: This test was developed and its performance characteristics determined by [facility]'s Pathology and Laboratory Medicine Department. It has not been cleared or approved by the FDA. [facility]'s Pathology and Laboratory Medicine Department is regulated under CLIA as certified to perform high-complexity testing. This test is used for clinical purposes. It should not be regarded as investigational or for research. Test performed at [facility], [address] [place] [address]. CLIA Number: [id number] References: 1) Inheritied Thrombophilias in . ACOG Practice Bulletin. No. 197. [employer]. Obsete Gynecol 2018;132:e18-34. 2) Ama SR, Nehemiah FR, Sandra PH, and Sarah ANDERSON. A common genetic variation in the 3'-untranslated region of the prothrombin gene is associated with elevated plasma prothrombin levels and an increase in venous thrombosis. Blood 88:3698-703, 1996. 3) Nisha Springer, Rafiq Ayala, Leslie Harris, Cecelia Mohan. Prothrombin 68316Q>T: 16 new cases, association with the 65649J>G polymorphism, and literature review. J Thromb Haemost. 2009;9:1585-7. Interpretation performed at remote location (R0A1) by Nusrat Oreilly MD Performed By: #### P TGEN ####CL[facility] ILLUMINA LIMSCLIA [id number] [address] Screen dRVVTon 11-22-2024 dRVVT Coag (PPP) [Time] 36.8 s Normal 32.0-45.7 [facility] Comment on above: Order Comment: Speci men Type: BLOOD SPECIMENOrdering Facility: [facility] Address: [address] [place] [address] Performed By: #### 4 0647-0, [id number], HCOAG, 6303-2 ####[facility] LABCLIA [id number] [address] US TCD BUBBLE STUDYon 2024 US TCD BUBBLE STUDY * * *Final Report* * * DATE OF EXAM: Nov 22 2024 2:18PM [facility] [place] 1119 - TCD BUBBLE STUDY / PROCEDURE REASON: Cerebral infarction, unspecified mechanism (HCC) * * * * Physician Interpretation * * * * CLINICAL HISTORY:29 year-old female with possible stroke. 1.0 cc of air was agitated with 9 cc of normal saline and injected into the left antecubital IV site. EMBOLI Left MCA Right MCA INJECTION 0 0 VALSALVA 5 8 POST 0 0 TOTAL 5 8 CURTAIN SIGN WAS NOT DETECTED. Technologist: Mark Salter RVT, [facility] IMPRESSION: Multiple microembolic events were detected in the insonated bilateral MCAs upon injection of 10 cc of agitated saline. This exam is positive for right to left shunt. Functional right to left shunt size*: Grade I: Small-medium *Grading is based on the International Consensus Criteria (Cerebrovasc Dis 2000;10:490?496): - Grade 0 - Negative (0 emboli) - Grade I - Small-Medium (1-20 emboli) - Grade II - Large (>20 emboli without curtain sign) - Grade III - Very Large (curtain sign) Funeral Pre Arrangement Specialist: [facility] Transcribe Date/Time: Nov 22 2024 2:21P Dictated by : WALTER BAILEY MD This examination was interpreted and the report reviewed and electronically signed by: WALTER BAILEY MD on Nov 22 2024 2:56PM EST [id number] CN Normal [facility] US.doppler Head vesselson Radiology Study observation (narrative) Jorgito de la torre [facility] IMPRESSION: Multiple microembolic events were detected in the insonated bilateral MCAs upon injection of 10 cc of agitated saline. This exam is positive for right to left shunt. Functional right to left shunt size*: Grade I: Small-medium *Grading is based on the International Consensus Criteria (Cerebrovasc Dis 2000;10:490?496): - Grade 0 - Negative (0 emboli) - Grade I - Small-Medium (1-20 emboli) - Grade II - Large (>20 emboli without curtain sign) - Grade III - Very Large (curtain sign) Funeral Pre Arrangement Specialist: [facility] Transcribe Date/Time: Nov 22 2024 2:21P Dictated by : WALTER BAILEY MD This examination was interpreted and the report reviewed and electronically signed by: WALTER BAILEY MD on Nov 22 2024 2:56PM EST DIVISION OF RADIOLOGY * * *Final Report* * * DATE OF EXAM: Nov 22 2024 2:18PM [facility] [place] 1119 - TCD BUBBLE STUDY / PROCEDURE REASON: Cerebral infarction, unspecified mechanism (HCC) * * * * Physician Interpretation * * * * CLINICAL HISTORY:29 year-old female with possible stroke. 1.0 cc of air was agitated with 9 cc of normal saline and injected into the left antecubital IV site. EMBOLI Left MCA Right MCA INJECTION 0 0 VALSALVA 5 8 POST 0 0 TOTAL 5 8 CURTAIN SIGN WAS NOT DETECTED. Technologist: aMrk Salter RVT, [facility] DIVISION OF RADIOLOGY Provider, [facility] [place] - 11/22/2024 * * *Final Report* * * DATE OF EXAM: Nov 22 2024 2:18PM [facility] [place] 1119 - TCD BUBBLE STUDY / PROCEDURE REASON: Cerebral infarction, unspecified mechanism (HCC) * * * * Physician Interpretation * * * * CLINICAL HISTORY:29 year-old female with possible stroke. 1.0 cc of air was agitated with 9 cc of normal saline and injected into the left antecubital IV site. EMBOLI Left MCA Right MCA INJECTION 0 0 VALSALVA 5 8 POST 0 0 TOTAL 5 8 CURTAIN SIGN WAS NOT DETECTED. Technologist: Mark Salter RVT, [facility] IMPRESSION IMPRESSION: Multiple microembolic events were detected in the insonated bilateral MCAs upon injection of 10 cc of agitated saline. This exam is positive for right to left shunt. Functional right to left shunt size*: Grade I: Small-medium *Grading is based on the International Consensus Criteria (Cerebrovasc Dis 2000;10:490?496): - Grade 0 - Negative (0 emboli) - Grade I - Small-Medium (1-20 emboli) - Grade II - Large (>20 emboli without curtain sign) - Grade III - Very Large (curtain sign) Funeral Pre Arrangement Specialist: [facility] Transcribe Date/Time: Nov 22 2024 2:21P Dictated by : WALTER BAILEY MD This examination was interpreted and the report reviewed and electronically signed by: WALTER BAILEY MD on Nov 22 2024 2:56PM [facility].doppler Head vesselsOrder ed By: Ccf Provider on 11-22-2024 [facility] dRVVT Coag (PPP) [Time]on dRVVT factor substitution immediately after 1:2 addition of normal plasma Coag (PPP) [Time] 34.0 seconds Normal 32.0-45.7 [facility] Comment on above: Order Comment: Speci men Type: BLOOD SPECIMENOrdering Facility: [facility] Address: [address] [place] [address] Performed By: #### 4 0647-0, [id number], HCOAG, 6303-2 ####[facility] LABCLIA [id number] [address] [place] dRVVT/dRVVT.excess phospholipid Coag (PPP) [Ratio] 1.14 Normal <1.32 [facility] Comment on above: Order Comment: Speci men Type: BLOOD SPECIMENOrdering Facility: [facility] Address: [address] [place] [address] Performed By: #### 4 0647-0, [id number], HCOAG, 6303-2 ####[facility] LABCLIA [id number] [address] OF [facility] CNPNon 11-16-2024 CNPN Telephone (NIQ) ANGELITA MARLEY ([id number]) 1995 F Date Time Provider Department 11/16/24 FLAVIO NAVARRETE During your visit today, we recorded the following information about you: Jc Patel 11/21/2024 10:37 AM Addendum OSH imaging/records received from [facility]: November 16, 2024 -2024 Records available in Care Everywhere -2024 Images OSH imaging/records received from [facility]: November 16, 2024 - Records available in Care Everywhere PENDING: - Images Allergies As of Date: 11/16/2024 Noted Allergy Reaction AMOXICILLIN 01/13/2018 16 - Unknown Comments: When she was a child DICYCLOMINE 09/22/2023 5 - Intolerance Comments: Patient reports causes migraines SEASONAL ALLERGIES 01/13/2018 9 - Itching Date Reviewed: 11/13/2024 Reviewed by: Natalio Watkins DO - Fully Assessed Reason for Visit: Imaging/Records [Other] Prescriptions as of 11/21/2024 - FLUoxetine (PROZAC) 20 mg capsule Take 1 capsule by mouth once daily. - omeprazole (PRILOSEC) 20 mg capsule Take 1 capsule by mouth daily before breakfast. 1/2 hr before meal. - topiramate (TOPAMAX) 25 mg tablet Take 1 tablet by mouth two times a day. - SUMAtriptan (IMITREX) 50 mg tablet Take 1 tablet by mouth as needed for migraine headache (see administration instructions) (at onset of headache. May repeat after 2 hours.). May repeat dose after 2 hours if needed. Maximum daily dose is 200 mg per day. - traZODone (DESYREL) 50 mg tablet Take 1 tablet by mouth daily at bedtime. - cetirizine (ZYRTEC) 10 mg tablet Take 10 mg by mouth as needed. - fluticasone (FLONASE ALLERGY RELIEF) 50 mcg/actuation nasal spray Use 1 [place] in each nostril two times a day. - diphenhydramine HCl (BENADRYL ORAL) Take by mouth. Problem List As Of Date 11/16/2024 Noted Resolved History of anxiety [Z86.59] 05/25/2018 Genetic testing [Z13.79] 05/25/2018 06/22/2018 Encounter for ultrasound [Z36.9] 05/25/2018 06/22/2018 Asthma complicating in first trimeste*05/25/2018 06/12/2020 Encounter for supervision of normal first pregn*09/22/2018 06/12/2020 Short interval between pregnancies affecting pr*09/13/2019 06/12/2020 History of depression [Z87.59, Z86.5*09/13/2019 06/12/2020 Encounter Status:Closed by JC PATEL on 11/21/24 Normal [facility] MR Brain WO and W contrast I Von 11-14-2024 IMPRESSION: Small focus of cortical FLAIR hyperintensity in the left medial occipital region extending to the posterior cingulate region, with associated small parenchymal defect. 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 Otherwise unremarkable MRI appearance of the orbits. No acute intracranial abnormality. No pathologic enhancement. Funeral Pre Arrangement Specialist: ERIC Transcribe Date/Time: Nov 14 2024 11:47A Dictated by : JANELL DE JESUS MD This examination was interpreted and the report reviewed and electronically signed by: JANELL DE JESUS MD on Nov 14 2024 12:07PM [facility] DIVISION OF RADIOLOGY * * *Final Report* * * DATE OF EXAM: Nov 14 2024 11:00AM [facility] 0295 - MRI BRAIN WO/W IVCON / PROCEDURE REASON: Visual field loss * * * * Physician Interpretation * * * * EXAMINATION: MRI BRAIN WO/W IVCON CLINICAL HISTORY: Visual field loss Right-sided visual field deficit, right-sided hemianopsia both eyes. Evaluate left lateral geniculate nucleus region. TECHNIQUE: Visual pathways protocol brain MRI without and with contrast. MQ: MRBWOW_2 Contrast: 7 mL Elucirem IV COMPARISON: None. Report of prior outside imaging from 11/08/2024 are not currently available for review or comparison. Reference made to reports end caregiver. RESULT: Orbits: Orbital soft tissue planes are maintained, including superficial periorbital soft tissues, and intraconal and intracoronal fat. No retrobulbar mass. Bilateral globes appear intact and unremarkable. Bilateral extraocular muscles and lacrimal glands are symmetric and unremarkable. No convincing intrinsic T2 signal abnormality along the bilateral optic nerves, optic chiasm, or optic tracts. No convincing pathologic enhancement along the optic nerves which can be confirmed on both postcontrast sequences. Bilateral cavernous sinuses and superior ophthalmic veins are grossly symmetric and unremarkable. Acute Change: There is no evidence of restricted diffusion to suggest an acute infarct. Hemorrhage: No evidence of prior parenchymal hemorrhage on the provided images. Mass Lesion/ Mass Effect: No evidence of an intracranial mass or extra-axial fluid collection. No abnormal parenchymal or leptomeningeal enhancement is noted following contrast administration. No significant mass effect. Chronic Change: A few punctate foci of increased T2 and FLAIR signal are noted in the supratentorial white matter , predominantly in the bifrontal subcortical white matter, which is a nonspecific finding. These may represent the subtle sequelae of a remote insult, sequelae of migraines, among other etiologies. Small focus of cortical FLAIR hyperintensity in the left medial occipital region extending to the posterior cingulate region (2:18). There is an associated apparent small parenchymal defect seen in this region on the T1 SPACE acquisition (8:90-91), predominantly anterior to the prior occipital sulcus with marginal extension to the adjacent cuneus. No associated restricted diffusion or enhancement. Parenchyma: No significant volume loss for age. The brain parenchyma is otherwise within normal limits of signal intensity and morphology. No focal signal abnormality or evidence of chronic insult in the region of the left lateral geniculate nucleus. Ventricles: Normal caliber and morphology. Skull Base: Hypothalamic and pituitary region are grossly normal. Craniocervical junction is normal. No significant marrow replacement process. Vasculature: Major intracranial arterial structures, and dural venous sinuses show typical flow void, suggesting patency by spin echo criteria. Other: The visualized paranasal sinuses and mastoid air cells are clear. The orbits and extracranial soft tissues are unremarkable. DIVISION OF RADIOLOGY Provider, [facility] [place] - 11/14/2024 * * *Final Report* * * DATE OF EXAM: Nov 14 2024 11:00AM [facility] 0295 - MRI BRAIN WO/W IVCON / PROCEDURE REASON: Visual field loss * * * * Physician Interpretation * * * * EXAMINATION: MRI BRAIN WO/W IVCON CLINICAL HISTORY: Visual field loss Right-sided visual field deficit, right-sided hemianopsia both eyes. Evaluate left lateral geniculate nucleus region. TECHNIQUE: Visual pathways protocol brain MRI without and with contrast. MQ: MRBWOW_2 Contrast: 7 mL Elucirem IV COMPARISON: None. Report of prior outside imaging from 11/08/2024 are not currently available for review or comparison. Reference made to reports end caregiver. RESULT: Orbits: Orbital soft tissue planes are maintained, including superficial periorbital soft tissues, and intraconal and intracoronal fat. No retrobulbar mass. Bilateral globes appear intact and unremarkable. Bilateral extraocular muscles and lacrimal glands are symmetric and unremarkable. No convincing intrinsic T2 signal abnormality along the bilateral optic nerves, optic chiasm, or optic tracts. No convincing pathologic enhancement along the optic nerves which can be confirmed on both postcontrast sequences. Bilateral cavernous sinuses and superior ophthalmic veins are grossly symmetric and unremarkable. Acute Change: There is no evidence of restricted diffusion to suggest an acute infarct. Hemorrhage: No evidence of prior parenchymal hemorrhage on the provided images. Mass Lesion/ Mass Effect: No evidence of an intracranial mass or extra-axial fluid collection. No abnormal parenchymal or leptomeningeal enhancement is noted following contrast administration. No significant mass effect. Chronic Change: A few punctate foci of increased T2 and FLAIR signal are noted in the supratentorial white matter , predominantly in the bifrontal subcortical white matter, which is a nonspecific finding. These may represent the subtle sequelae of a remote insult, sequelae of migraines, among other etiologies. Small focus of cortical FLAIR hyperintensity in the left medial occipital region extending to the posterior cingulate region (2:18). There is an associated apparent small parenchymal defect seen in this region on the T1 SPACE acquisition (8:90-91), predominantly anterior to the prior occipital sulcus with marginal extension to the adjacent cuneus. No associated restricted diffusion or enhancement. Parenchyma: No significant volume loss for age. The brain parenchyma is otherwise within normal limits of signal intensity and morphology. No focal signal abnormality or evidence of chronic insult in the region of the left lateral geniculate nucleus. Ventricles: Normal caliber and morphology. Skull Base: Hypothalamic and pituitary region are grossly normal. Craniocervical junction is normal. No significant marrow replacement process. Vasculature: Major intracranial arterial structures, and dural venous sinuses show typical flow void, suggesting patency by spin echo criteria. Other: The visualized paranasal sinuses and mastoid air cells are clear. The orbits and extracranial soft tissues are unremarkable. IMPRESSION IMPRESSION: Small focus of cortical FLAIR hyperintensity in the left medial occipital region extending to the posterior cingulate region, with associated small parenchymal defect. 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 Otherwise unremarkable MRI appearance of the orbits. No acute intracranial abnormality. No pathologic enhancement. Funeral Pre Arrangement Specialist: ERIC Transcribe Date/Time: Nov 14 2024 11:47A Dictated by : JANELL DE JESUS MD This examination was interpreted and the report reviewed and electronically signed by: JANELL DE JESUS MD on Nov 14 2024 12:07PM [facility] Radiology Study observation (narrative) Jorgito de la torre [facility] MR Brain WO and W contrast I VOrdered By: Ccf Provider on 11-14-2024 [facility] MRI BRAIN WO/W IVCONon 11-14 MRI BRAIN WO/W IVCON * * *Final Report* * * DATE OF EXAM: Nov 14 2024 11:00AM [facility] 0295 - MRI BRAIN WO/W IVCON / PROCEDURE REASON: Visual field loss * * * * Physician Interpretation * * * * EXAMINATION: MRI BRAIN WO/W IVCON CLINICAL HISTORY: Visual field loss Right-sided visual field deficit, right-sided hemianopsia both eyes. Evaluate left lateral geniculate nucleus region. TECHNIQUE: Visual pathways protocol brain MRI without and with contrast. MQ: MRBWOW_2 Contrast: 7 mL Elucirem IV COMPARISON: None. Report of prior outside imaging from 11/08/2024 are not currently available for review or comparison. Reference made to reports end caregiver. RESULT: Orbits: Orbital soft tissue planes are maintained, including superficial periorbital soft tissues, and intraconal and intracoronal fat. No retrobulbar mass. Bilateral globes appear intact and unremarkable. Bilateral extraocular muscles and lacrimal glands are symmetric and unremarkable. No convincing intrinsic T2 signal abnormality along the bilateral optic nerves, optic chiasm, or optic tracts. No convincing pathologic enhancement along the optic nerves which can be confirmed on both postcontrast sequences. Bilateral cavernous sinuses and superior ophthalmic veins are grossly symmetric and unremarkable. Acute Change: There is no evidence of restricted diffusion to suggest an acute infarct. Hemorrhage: No evidence of prior parenchymal hemorrhage on the provided images. Mass Lesion/ Mass Effect: No evidence of an intracranial mass or extra-axial fluid collection. No abnormal parenchymal or leptomeningeal enhancement is noted following contrast administration. No significant mass effect. Chronic Change: A few punctate foci of increased T2 and FLAIR signal are noted in the supratentorial white matter , predominantly in the bifrontal subcortical white matter, which is a nonspecific finding. These may represent the subtle sequelae of a remote insult, sequelae of migraines, among other etiologies. Small focus of cortical FLAIR hyperintensity in the left medial occipital region extending to the posterior cingulate region (2:18). There is an associated apparent small parenchymal defect seen in this region on the T1 SPACE acquisition (8:90-91), predominantly anterior to the prior occipital sulcus with marginal extension to the adjacent cuneus. No associated restricted diffusion or enhancement. Parenchyma: No significant volume loss for age. The brain parenchyma is otherwise within normal limits of signal intensity and morphology. No focal signal abnormality or evidence of chronic insult in the region of the left lateral geniculate nucleus. Ventricles: Normal caliber and morphology. Skull Base: Hypothalamic and pituitary region are grossly normal. Craniocervical junction is normal. No significant marrow replacement process. Vasculature: Major intracranial arterial structures, and dural venous sinuses show typical flow void, suggesting patency by spin echo criteria. Other: The visualized paranasal sinuses and mastoid air cells are clear. The orbits and extracranial soft tissues are unremarkable. IMPRESSION: Small focus of cortical FLAIR hyperintensity in the left medial occipital region extending to the posterior cingulate region, with associated small parenchymal defect. 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 Otherwise unremarkable MRI appearance of the orbits. No acute intracranial abnormality. No pathologic enhancement. Funeral Pre Arrangement Specialist: ERIC Transcribe Date/Time: Nov 14 2024 11:47A Dictated by : JANELL DE JESUS MD This examination was interpreted and the report reviewed and electronically signed by: JANELL DE JESUS MD on Nov 14 2024 12:07PM EST [id number] CN Normal [facility] VISUAL FIELD 24-2 OU (BOTH E YES)on 11-13-2024 [facility] BETA HCG, QUANTITATIVE FOR E Don 11-12-2024 HCG.beta subunit Qn m[IU]/mL Normal <5.0 [facility] Comment on above: Order Comment: Speci men Type: BLOOD SPECIMENOrdering Facility: [facility] Address: [address] [place] [address] Result Comment: Nega tive Performed By: #### 2 4323-8, [id number], HCGED ####[facility] LABCLIA [id number] [place] [address] [place] CBC W Auto Differential pane l (Bld)on 11-12-2024 Basophils (Bld) [#/Vol] 0.05 10*3/uL Normal <0.11 [facility] Comment on above: Order Comment: Speci men Type: BLOOD SPECIMENOrdering Facility: [facility] Address: [address] [place] [address] Performed By: #### 5 7021-8 ####[facility] LABCLIA [id number] [place] [address] [place] Basophils/100 WBC (Bld) 0.7 % Normal [facility] Comment on above: Order Comment: Speci men Type: BLOOD SPECIMENOrdering Facility: [facility] Address: [address] [place] [address] Performed By: #### 5 7021-8 ####[facility] LABCLIA [id number] [address], [place] [address] [place] Differential cell count method Nom (Bld) Auto Normal [facility] Comment on above: Order Comment: Speci men Type: BLOOD SPECIMENOrdering Facility: [facility] Address: [address] [place] [address] Performed By: #### 5 7021-8 ####[facility] LABCLIA [id number] [address], [place] [address] [place] Eosinophils (Bld) [#/Vol] 0.12 10*3/uL Normal <0.46 [facility] Comment on above: Order Comment: Speci men Type: BLOOD SPECIMENOrdering Facility: [facility] Address: [address] [place] [address] Performed By: #### 5 7021-8 ####[facility] LABCLIA [id number] [place] [address] [place] Eosinophils/100 WBC (Bld) 1.7 % Normal [facility] Comment on above: Order Comment: Speci men Type: BLOOD SPECIMENOrdering Facility: [facility] Address: [address] [place] [address] Performed By: #### 5 7021-8 ####[facility] LABCLIA [id number] [address], [place] [address] [place] Erythrocyte distribution width (RBC) [Ratio] 12.1 % Normal 11.5-15.0 [facility] Comment on above: Order Comment: Speci men Type: BLOOD SPECIMENOrdering Facility: [facility] Address: [address] [place] [address] Performed By: #### 5 7021-8 ####[facility] LABCLIA [id number] [place] [address] [place] Hematocrit (Bld) [Volume fraction] 40.8 % Normal 36.0-46.0 [facility] Comment on above: Order Comment: Speci men Type: BLOOD SPECIMENOrdering Facility: [facility] Address: [address] [place] [address] Performed By: #### 5 7021-8 ####[facility] LABCLIA [id number] [place] [address] [place] Hemoglobin (Bld) [Mass/Vol] 14.5 g/dL Normal 11.5-15.5 [facility] Comment on above: Order Comment: Speci men Type: BLOOD SPECIMENOrdering Facility: [facility] Address: [address] [place] [address] Performed By: #### 5 7021-8 ####[facility] LABCLIA [id number] [place] [address] [place] Immature granulocytes (Bld) [#/Vol] 10*3/uL Normal <0.10 [facility] Comment on above: Order Comment: Speci men Type: BLOOD SPECIMENOrdering Facility: [facility] Address: [address] [place] [address] Performed By: #### 5 7021-8 ####[facility] LABCLIA [id number] [place] [address] [place] Immature granulocytes/100 WBC (Bld) 0.1 % Normal [facility] Comment on above: Order Comment: Speci men Type: BLOOD SPECIMENOrdering Facility: [facility] Address: [address] [place] [address] Performed By: #### 5 7021-8 ####[facility] LABCLIA [id number] [place] [id number] [place] Lymphocytes (Bld) [#/Vol] 2.48 10*3/uL Normal 1.00-4.00 [facility] Comment on above: Order Comment: Speci men Type: BLOOD SPECIMENOrdering Facility: [facility] Address: [address] [place] [address] Performed By: #### 5 7021-8 ####[facility] LABCLIA [id number] [place] [address] [place] Lymphocytes/100 WBC (Bld) 34.6 % Normal [facility] Comment on above: Order Comment: Speci men Type: BLOOD SPECIMENOrdering Facility: [facility] Address: [address] [place] [address] Performed By: #### 5 7021-8 ####[facility] LABCLIA [id number] [place] [address] [place] MCH (RBC) [Entitic mass] 31.7 pg Normal 26.0-34.0 [facility] Comment on above: Order Comment: Speci men Type: BLOOD SPECIMENOrdering Facility: [facility] Address: [address] [place] [address] Performed By: #### 5 7021-8 ####[facility] LABIA [id number] [place] [address] [place] MCHC (RBC) [Mass/Vol] 35.5 g/dL Normal 30.5-36.0 [facility] Comment on above: Order Comment: Speci men Type: BLOOD SPECIMENOrdering Facility: [facility] Address: [address] [place] [address] Performed By: #### 5 7021-8 ####[facility] LABIA [id number] [place] [address] [place] MCV (RBC) [Entitic vol] 89.3 fL Normal 80.0-100.0 C [facility] Comment on above: Order Comment: Speci men Type: BLOOD SPECIMENOrdering Facility: [facility] Address: [address] [place] [address] Performed By: #### 5 7021-8 ####[facility] LABCLIA [id number] [place] [address] [place] Monocytes (Bld) [#/Vol] 0.43 10*3/uL Normal <0.87 [facility] Comment on above: Order Comment: Speci men Type: BLOOD SPECIMENOrdering Facility: [facility] Address: [address] [place] [address] Performed By: #### 5 7021-8 ####[facility] LABCLIA [id number] [place] [id number] [place] Monocytes/100 WBC (Bld) 6.0 % Normal [facility] Comment on above: Order Comment: Speci men Type: BLOOD SPECIMENOrdering Facility: [facility] Address: [address] [place] [address] Performed By: #### 5 7021-8 ####[facility] LABIA [id number] [place] [address] [place] Neutrophils (Bld) [#/Vol] 4.07 10*3/uL Normal 1.45-7.50 [facility] Comment on above: Order Comment: Speci men Type: BLOOD SPECIMENOrdering Facility: [facility] Address: [address] [place] [address] Performed By: #### 5 7021-8 ####[facility] LABIA [id number] [place] [address] [place] Neutrophils/100 WBC (Bld) 56.9 % Normal [facility] Comment on above: Order Comment: Speci men Type: BLOOD SPECIMENOrdering Facility: [facility] Address: [address] [place] [address] Performed By: #### 5 7021-8 ####[facility] LABIA [id number] [place] [id number] [place] Nucleated RBC (Bld) [#/Vol] 10*3/uL Normal <0.01 [facility] Comment on above: Order Comment: Speci men Type: BLOOD SPECIMENOrdering Facility: [facility] Address: [address] [place] [address] Performed By: #### 5 7021-8 ####[facility] LABCLIA [id number] [address] [place] [address] [place] Nucleated RBC/100 WBC (Bld) [Ratio] 0.0 /100 WBC Normal [facility] Comment on above: Order Comment: Speci men Type: BLOOD SPECIMENOrdering Facility: [facility] Address: [address] [place] [address] Performed By: #### 5 7021-8 ####[facility] LABIA [id number] [address], [place] [address] [place] Platelet mean volume (Bld) [Entitic vol] 10.3 fL Normal 9.0-12.7 [facility] Comment on above: Order Comment: Speci men Type: BLOOD SPECIMENOrdering Facility: [facility] Address: [address] [place] [address] Performed By: #### 5 7021-8 ####[facility] LABIA [id number] [place] [address] [place] Platelets (Bld) [#/Vol] 255 10*3/uL Normal 150-400 [facility] Comment on above: Order Comment: Speci men Type: BLOOD SPECIMENOrdering Facility: [facility] Address: [address] [place] [address] Performed By: #### 5 7021-8 ####[facility] LABIA [id number] [place] [address] [place] RBC (Bld) [#/Vol] 4.57 10*6/uL Normal 3.90-5.20 [facility] Comment on above: Order Comment: Speci men Type: BLOOD SPECIMENOrdering Facility: [facility] Address: [address] [place] [address] Performed By: #### 5 7021-8 ####[facility] LABIA [id number] [address], [facility]95 [place] WBC (Bld) [#/Vol] 7.16 10*3/uL Normal 3.70-11.00 [facility] Comment on above: Order Comment: Speci men Type: BLOOD SPECIMENOrdering Facility: [facility] Address: [address] [place] [address] Performed By: #### 5 7021-8 ####[facility] LABCLIA [id number] [place] [address] [place] Comprehensive metabolic 2000 panelon 11-12-2024 Albumin [Mass/Vol] 4.6 g/dL Normal 3.9-4.9 [facility] Comment on above: Order Comment: Speci men Type: BLOOD SPECIMENOrdering Facility: [facility] Address: [address] [place] [address] Performed By: #### 2 4323-8, [id number], HCGED ####[facility] LABCLIA [id number] [place] [address] [place] ALP [Catalytic activity/Vol] 67 U/L Normal 34-123 [facility] Comment on above: Order Comment: Speci men Type: BLOOD SPECIMENOrdering Facility: [facility] Address: [address] [place] [address] Performed By: #### 2 4323-8, [id number], HCGED ####[facility] LABCLIA [id number] [place] [address] [place] ALT [Catalytic activity/Vol] 31 U/L Normal 7-38 [facility] Comment on above: Order Comment: Speci men Type: BLOOD SPECIMENOrdering Facility: [facility] Address: [address] [place] [address] Performed By: #### 2 4323-8, [id number], HCGED ####[facility] LABCLIA [id number] [address], [facility]95 [place] Anion gap [Moles/Vol] 12 mmol/L Normal 8-15 [facility] Comment on above: Order Comment: Speci men Type: BLOOD SPECIMENOrdering Facility: [facility] Address: [address] [place] [id number] Performed By: #### 2 4323-8, [id number], HCGED ####[facility] LABCLIA [id number] [place] [id number] [place] AST [Catalytic activity/Vol] 16 U/L Normal 13-35 [facility] Comment on above: Order Comment: Speci men Type: BLOOD SPECIMENOrdering Facility: [facility] Address: [address] [place], [place] [address] Performed By: #### 2 4323-8, [id number], HCGED ####[facility] LABIA [id number] [place] [address] [place] Bilirubin [Mass/Vol] 1.3 mg/dL Normal 0.2-1.3 [facility] Comment on above: Order Comment: Speci men Type: BLOOD SPECIMENOrdering Facility: [facility] Address: [address] [place] [address] Performed By: #### 2 4323-8, [id number], HCGED ####[facility] LABIA [id number] [place] [address] [place] Calcium [Mass/Vol] 9.2 mg/dL Normal 8.5-10.2 [facility] Comment on above: Order Comment: Speci men Type: BLOOD SPECIMENOrdering Facility: [facility] Address: [address] [place] [id number] Performed By: #### 2 4323-8, [id number], HCGED ####[facility] LABIA [id number] [place] [id number] [place] Chloride [Moles/Vol] 103 mmol/L Normal 98-107 [facility] Comment on above: Order Comment: Speci men Type: BLOOD SPECIMENOrdering Facility: [facility] Address: [address] [place], [place] [address] Performed By: #### 2 4323-8, [id number], HCGED ####[facility] LABCLIA [id number] [place] [address] [place] CO2 [Moles/Vol] 22 mmol/L Normal 22-30 [facility] Comment on above: Order Comment: Speci men Type: BLOOD SPECIMENOrdering Facility: [facility] Address: [address] [place] [address] Performed By: #### 2 4323-8, [id number], HCGED ####[facility] LABCLIA [id number] [place] [address] [place] Creatinine [Mass/Vol] 0.62 mg/dL Normal 0.58-0.96 [facility] Comment on above: Order Comment: Speci men Type: BLOOD SPECIMENOrdering Facility: [facility] Address: [address] [place] [address] Performed By: #### 2 4323-8, [id number], HCGED ####[facility] LABIA [id number] [place] [address] [place] Creatinine and Glomerular filtration rate.predicted panel (S/P/Bld) 123 mL/min/1.73m??? Normal >=60 [facility] Comment on above: Order Comment: Speci men Type: BLOOD SPECIMENOrdering Facility: [facility] Address: [address] [place] [address] Result Comment: Xavier mated Glomerular Filtration Rate (eGFR) is calculated using the 2020 CKD-EPI creatinine equation. This equation utilizes serum creatinine, sex, and age as parameters. The creatinine assay has traceable calibration to isotope dilution-mass spectrometry. Refer to KDIGO guidelines for clinical interpretation. In patients with unstable renal function, e.g. those with acute kidney injury, the eGFR may not accurately reflect actual GFR. Performed By: #### 2 4323-8, [id number], HCGED ####[facility] LABCLIA [id number] [place] [address] [place] Glucose [Mass/Vol] 90 mg/dL Normal 74-99 [facility] Comment on above: Order Comment: Speci men Type: BLOOD SPECIMENOrdering Facility: [facility] Address: [address] [place] [address] Result Comment: The [place] Diabetes Association (ADA) provides guidance for cutoff values for fasting glucose and random glucose. The ADA defines fasting as no caloric intake for at least 8 hours. Fasting plasma glucose results between 100 to 125 mg/dL indicate increased risk for diabetes (prediabetes). Fasting plasma glucose results greater than or equal to 126 mg/dL meet the criteria for diagnosis of diabetes. In the absence of unequivocal hyperglycemia, results should be confirmed by repeat testing. In a patient with classic symptoms of hyperglycemia or hyperglycemic crisis, random plasma glucose results greater than or equal to 200 mg/dL meet the criteria for diagnosis of diabetes. Reference: Standards of Medical Care in Diabetes 2016, [place] Diabetes Association. Diabetes Care. 2016.39(Suppl 1). Performed By: #### 2 4323-8, [id number], HCGED ####[facility] LABCLIA [id number] [place] [address] [place] Potassium [Moles/Vol] 4.0 mmol/L Normal 3.7-5.1 [facility] Comment on above: Order Comment: Speci men Type: BLOOD SPECIMENOrdering Facility: [facility] Address: [address] [place] [address] Performed By: #### 2 4323-8, [id number], HCGED ####[facility] LABCLIA [id number] [place] [address] [place] Protein [Mass/Vol] 7.2 g/dL Normal 6.3-8.0 [facility] Comment on above: Order Comment: Speci men Type: BLOOD SPECIMENOrdering Facility: [facility] Address: [address] [place] [address] Performed By: #### 2 4323-8, [id number], HCGED ####[facility] LABCLIA [id number] [place] [id number] [place] Sodium [Moles/Vol] 137 mmol/L Normal 136-144 [facility] Comment on above: Order Comment: Speci men Type: BLOOD SPECIMENOrdering Facility: [facility] Address: [address] [place] [address] Performed By: #### 2 4323-8, [id number], HCGED ####[facility] LABCLIA [id number] [place] [id number] [place] Urea nitrogen [Mass/Vol] 9 mg/dL Normal 7-21 [facility] Comment on above: Order Comment: Speci men Type: BLOOD SPECIMENOrdering Facility: [facility] Address: [address] [place] [address] Performed By: #### 2 4323-8, [id number], HCGED ####[facility] LABCLIA [id number] [place] [id number] [place] [id number] 11-12-2024 ECG01 Ventricular Rate : 71 BPM Atrial Rate : 71 BPM P-R Interval : 134 ms QRS Duration : 76 ms Q-T Interval : 414 ms QTC Calculation(Bazett) : 449 ms Calculated P [place] : 21 degrees Calculated R [place] : 8 degrees Calculated T [place] : 20 degrees NORMAL SINUS RHYTHM MINIMAL VOLTAGE CRITERIA FOR LVH, MAY BE NORMAL VARIANT ( R in aVL ) BORDERLINE ECG 1533 Confirmed by MD PARSONS MATTHEW ([id number]), editorial manager TOMASA MOORE ([id number]) on 11/13/2024 1:34:51 PM NAME : ANGELITA MARLEY PID : [id number] : 1995 Gender : Female Race : ORD : Procedure Date : Nov 12 2024 15:29:19 Edit Date : Nov 13 2024 13:34:56 Diagnosis: NORMAL SINUS RHYTHM MINIMAL VOLTAGE CRITERIA FOR LVH, MAY BE NORMAL VARIANT ( R in aVL ) BORDERLINE ECG 1533 Confirmed by MD PARSONS MATTHEW ([id number]), editorial manager TOMASA MOORE ([id number]) on 11/13/2024 1:34:51 PM Test Reason : Location : 2 : [place] [address] Overread By : MD PARSONS MATTHEW Edited By : TOMASA MOORE Referred By : , Acquired by : Salma SANCHEZ [facility] ED NOTEon 11-12-2024 ED NOTE HNO ID: [id number] Author: CHELSEA ISAAC CT Service: Emergency Medicine Author 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 Pt LWBS Normal [facility] ED Triage Noteon 11-12-2024 ED Triage Note HNO ID: [id number] Author: JC PARSONS MD Service: Emergency Medicine Author Type: Physician Type: ED Triage Notes Filed: 11/12/2024 15:23 Note Text: ED TRIAGE PROVIDER NOTE Patient Name: Angelita Marley Service Date: 11/12/24 BRIEF HPI: This is a 29 year old female who presents to the ED with: vision changes since . She has noted right visual field changes, gradually worse. Had an MRI done but sent here for another one. She notes tingling in the hands / arms and back. She was seen last week in the ED for chest pain and had a negative CT PE. She then developed headaches and vision issues on the next day. She also is having chest pain, like a pinching in the left chest. She saw ophthalmology today who recommended ED evaluation for repeat imaging. BRIEF EXAM: NAD Awake and Alert Neuro: R hemianiopia, no slurred speech, CN II otherwise intact, mild R numbness compared to left, normal strength in BLE and BUE Card: RRR no murmurs Lungs CTAB INITIAL WORKUP AND DECISION MAKING: Orders Placed This Encounter XR CHEST 2V FRONTAL/LAT Complete Blood Count and Differential Comprehensive Metabolic Panel High Sensitivity Troponin T with Reflex for ED Chest Pain Beta HCG, Quantitative for ED GLUCOSE - ED(POC) SIGNATURE: Jc Parsons MD Normal [facility] HIGH SENSITIVITY TROPONIN T (INITIAL)on 11-12-2024 Troponin T.cardiac High sensitivity method [Mass/Vol] <6 Normal <12 [facility] Comment on above: Order Comment: Speci men Type: BLOOD SPECIMENOrdering Facility: [facility] Address: [address] [place] [address] Performed By: #### 2 4323-8, [id number], HCGED ####[facility] LABCLIA [id number] [place] [id number] [facility] VISUAL FIELD 24-2 OU (BOTH E YES)on 11-12-2024 Radiology Study observation (narrative) [facility] XR CHEST 2V FRONTAL/LATon XR CHEST 2V FRONTAL/LAT * * *Final Repor t* * * DATE OF EXAM: Nov 12 2024 4:07PM EGX 5291 - XR CHEST 2V FRONTAL/LAT / PROCEDURE REASON: Chest Pain * * * * Physician Interpretation * * * * EXAMINATION: CHEST RADIOGRAPH (2 VIEW FRONTAL and LATERAL) CLINICAL HISTORY: Chest Pain MQ: XC2_6 EXAM DATE/TIME: 11/12/2024 4:07 PM COMPARISON: No relevant prior studies available. RESULT: Lines, tubes, and devices: None. Lungs and pleura: No consolidation. No pleural effusion. No pneumothorax. Cardiomediastinal silhouette: Normal cardiomediastinal silhouette. Bones and soft tissues: Unremarkable. IMPRESSION: No acute radiographic abnormality. Funeral Pre Arrangement Specialist: PSCB Transcribe Date/Time: Nov 12 2024 4:09P Dictated by : LOPEZ HOLLIDAY MD This examination was interpreted and the report reviewed and electronically signed by: LUCIANA ZIMMERMAN MD on Nov 12 2024 6:08PM EST [id number] CN Normal [facility] FUNDUS PHOTOS OU (BOTH EYES) on 11-09-2024 [facility] Radiology Study observation (narrative) [facility] OCT OPTIC NERVE CIRRUS OU (B OTH EYES)on 11-09-2024 [facility] Radiology Study observation (narrative) [facility] VISUAL FIELD 24-2 OU (BOTH E YES)on 11-09-2024 [facility] Radiology Study observation (narrative) [facility] APTTon 11-08-2024 aPTT Coag (PPP) [Time] 29 s Un [facility] CBC W Auto Differential pane l (Bld)on 11-08-2024 Basophils (Bld) [#/Vol] 0.03 10*3/uL [facility] Basophils/100 WBC (Bld) 0.5 % 0.0 - 2.0 % [facility] Eosinophils (Bld) [#/Vol] 0.13 10*3/uL [facility] Eosinophils/100 WBC (Bld) 2.2 % 0.0 - 6.0 % [facility] Erythrocyte distribution width (RBC) [Ratio] 12.1 % 11.5 - 14.5 % [facility] Hematocrit (Bld) [Volume fraction] 38.9 % 36.0 - 46.0 % [facility] Hemoglobin (Bld) [Mass/Vol] 13.9 g/dL 12.0 - 16.0 g/dL [facility] Immature granulocytes (Bld) [#/Vol] 0.01 10*3/uL [facility] Immature granulocytes/100 WBC (Bld) 0.2 % 0.0 - 0.9 % [facility] Comment on above: Immature Granulocyte Count (IG) includes promyelocytes, myelocytes and metamyelocytes but does not include bands. Percent differential counts (%) should be interpreted in the context of the absolute cell counts (cells/UL). Lymphocytes (Bld) [#/Vol] 2.2 10*3/uL [facility] Lymphocytes/100 WBC (Bld) 37.8 % 13.0 - 44.0 % [facility] MCH (RBC) [Entitic mass] 31.4 pg 26. 0 - 34.0 pg [facility] MCHC (RBC) [Mass/Vol] 35.7 g/dL 32.0 - 36.0 g/dL [facility] MCV (RBC) [Entitic vol] 88 fL 80 - 100 fL [facility] Monocytes (Bld) [#/Vol] 0.68 10*3/uL [facility] Monocytes/100 WBC (Bld) 11.7 % 2.0 - 10.0 % [facility] Neutrophils (Bld) [#/Vol] 2.77 10*3/uL [facility] Comment on above: Percent differential counts (%) should be interpreted in the context of the absolute cell counts (cells/uL). Neutrophils/100 WBC (Bld) 47.6 % 40.0 - 80.0 % [facility] Nucleated RBC/100 WBC (Bld) [Ratio] 0 % [facility] Platelets (Bld) [#/Vol] 196 10*3/uL [facility] RBC (Bld) [#/Vol] 4.42 10*6/uL [facility] WBC (Bld) [#/Vol] 5.8 10*3/uL [facility] Basophils (Bld) [#/Vol] 0.03 x10*3/uL Normal 0.00-0.10 [facility] Comment on above: Performed By: #### 5 7021-8 #### HERMINIO VELA ([id number]) [facility] ([facility]) [address] [place] [address] Basophils/100 WBC (Bld) 0.5 % Normal 0.0-2.0 [facility] Comment on above: Performed By: #### 5 7021-8 #### HERMINIO VELA ([id number]) [facility] ([facility]) [address] [place] [address] Eosinophils (Bld) [#/Vol] 0.13 x10*3/uL Normal 0.00-0.70 [facility] Comment on above: Performed By: #### 5 7021-8 #### HERMINIO VELA ([id number]) [facility] ([facility]) [address] [place] [address] 13300 Eosinophils/100 WBC (Bld) 2.2 % Normal 0.0-6.0 [facility] Comment on above: Performed By: #### 5 7021-8 #### HERMINIO VELA ([id number]) [facility] ([facility]) [address] [place] [address] 11973 Erythrocyte distribution width (RBC) [Ratio] 12.1 % Normal 11.5-14.5 [facility] Comment on above: Performed By: #### 5 7021-8 #### HERMINIO V[place]A ([id number]) [facility] ([facility]) [address] [place] [address] 08668 Hematocrit (Bld) [Volume fraction] 38.9 % Normal 36.0-46.0 [facility] Comment on above: Performed By: #### 5 7021-8 #### HERMINIO VELA ([id number]) [facility] ([facility]) [address] [place] [address] 36773 Hemoglobin (Bld) [Mass/Vol] 13.9 g/dL Normal 12.0-16.0 [facility] Comment on above: Performed By: #### 5 7021-8 #### HERMINIO VELA ([id number]) [facility] ([facility]) [address] [place] [address] 22198 Immature granulocytes (Bld) [#/Vol] 0.01 x10*3/uL Normal 0.00-0.70 [facility] Comment on above: Performed By: #### 5 7021-8 #### HERMINIO VELA ([id number]) [facility] ([facility]) [address] [place] [address] 14181 Immature granulocytes/100 WBC (Bld) 0.2 % Normal 0.0-0.9 [facility] Comment on above: Result Comment: Debra ture Granulocyte Count (IG) includes promyelocytes, myelocytes and metamyelocytes but does not include bands. Percent differential counts (%) should be interpreted in the context of the absolute cell counts (cells/UL). Performed By: #### 5 7021-8 #### HERMINIO VELA ([id number]) [facility] ([facility]) [address] [place] [address] 05113 Lymphocytes (Bld) [#/Vol] 2.20 x10*3/uL Normal 1.20-4.80 [facility] Comment on above: Performed By: #### 5 7021-8 #### HERMINIO VELA ([id number]) [facility] ([facility]) [address] [place] [address] 50431 Lymphocytes/100 WBC (Bld) 37.8 % Normal 13.0-44.0 [facility] Comment on above: Performed By: #### 5 7021-8 #### HERMINIO VELA ([id number]) [facility] ([facility]) [address] [place] [address] MCH (RBC) [Entitic mass] 31.4 pg Normal 26.0-34.0 [facility] Comment on above: Performed By: #### 5 7021-8 #### HERMINIO VELA ([id number]) [facility] ([facility]) [address] [place] [address] MCHC (RBC) [Mass/Vol] 35.7 g/dL Normal 32.0-36.0 [facility] Comment on above: Performed By: #### 5 7021-8 #### HERMINIO VELA ([id number]) [facility] ([facility]) [address] [place] [address] MCV (RBC) [Entitic vol] 88 fL Normal 80-100 [facility] Comment on above: Performed By: #### 5 7021-8 #### HERMINIO VELA ([id number]) [facility] ([facility]) [address] [place] [address] Monocytes (Bld) [#/Vol] 0.68 x10*3/uL Normal 0.10-1.00 [facility] Comment on above: Performed By: #### 5 7021-8 #### HERMINIO VELA ([id number]) [facility] ([facility]) [address] [place] [address] Monocytes/100 WBC (Bld) 11.7 % Normal 2.0-10.0 [facility] Comment on above: Performed By: #### 5 7021-8 #### HERMINIO VELA ([id number]) [facility] ([facility]) [address] [place], [place] [phone] Neutrophils (Bld) [#/Vol] 2.77 x10*3/uL Normal 1.20-7.70 [facility] Comment on above: Result Comment: Perc ent differential counts (%) should be interpreted in the context of the absolute cell counts (cells/uL). Performed By: #### 5 7021-8 #### HERMINIO VELA ([id number]) [facility] ([facility]) [address] [place] [address] 43534 Neutrophils/100 WBC (Bld) 47.6 % Normal 40.0-80.0 [facility] Comment on above: Performed By: #### 5 7021-8 #### HERMINIO VELA ([id number]) [facility] ([facility]) [address] [place] [address] 69248 Nucleated RBC/100 WBC (Bld) [Ratio] 0.0 /100 WBCs Normal 0.0-0.0 [facility] Comment on above: Performed By: #### 5 7021-8 #### HERMINIO VELA ([id number]) [facility] ([facility]) [address] [place] [address] 13660 Platelets (Bld) [#/Vol] 196 x10*3/uL Normal 150-450 [facility] Comment on above: Performed By: #### 5 7021-8 #### HERMINIO VELA ([id number]) [facility] ([facility]) [address] [place] [address] 03564 RBC (Bld) [#/Vol] 4.42 x10*6/uL Normal 4.00-5.20 [facility] Comment on above: Performed By: #### 5 7021-8 #### HERMINIO VELA ([id number]) [facility] ([facility]) [address] [place] [address] [id number] WBC (Bld) [#/Vol] 5.8 x10*3/uL Normal 4.4-11.3 [facility] Comment on above: Performed By: #### 5 7021-8 #### HERMINIO VELA ([id number]) [facility] ([facility]) [address] [place] [address] [id number] Basophils (Bld) [#/Vol] 0.03 10*3/uL [facility] Basophils/100 WBC (Bld) 0.6 % [facility] Differential cell count method Nom (Bld) Auto [facility] Eosinophils (Bld) [#/Vol] 0.06 10*3/uL [facility] Eosinophils/100 WBC (Bld) 1.1 % [facility] Erythrocyte distribution width (RBC) [Ratio] 12.3 % 11.5 - 15.0 % [facility] Hematocrit (Bld) [Volume fraction] 43.1 % 36.0 - 46.0 % [facility] Hemoglobin (Bld) [Mass/Vol] 14.9 g/dL 11.5 - 15.5 g/dL [facility] Immature granulocytes (Bld) [#/Vol] [facility] Immature granulocytes/100 WBC (Bld) 0.4 % [facility] Lymphocytes (Bld) [#/Vol] 1.68 10*3/uL [facility] Lymphocytes/100 WBC (Bld) 31.9 % [facility] MCH (RBC) [Entitic mass] 31.7 pg 26. 0 - 34.0 pg [facility] MCHC (RBC) [Mass/Vol] 34.6 g/dL 30.5 - 36.0 g/dL [facility] MCV (RBC) [Entitic vol] 91.7 fL 80.0 - 100.0 fL [facility] Monocytes (Bld) [#/Vol] 0.69 10*3/uL [facility] Monocytes/100 WBC (Bld) 13.1 % [facility] Neutrophils (Bld) [#/Vol] 2.78 10*3/uL [facility] Neutrophils/100 WBC (Bld) 52.9 % [facility] Nucleated RBC (Bld) [#/Vol] [facility] Nucleated RBC/100 WBC (Bld) [Ratio] 0 % /100 WBC [facility] Platelet mean volume (Bld) [Entitic vol] 11.1 fL 9.0 - 12.7 fL [facility] Platelets (Bld) [#/Vol] 207 10*3/uL [facility] RBC (Bld) [#/Vol] 4.7 10*6/uL 3.90 - 5.2 0 m/uL [facility] WBC (Bld) [#/Vol] 5.26 10*3/uL [facility] Basophils (Bld) [#/Vol] 0.03 10*3/uL Normal <0.11 [facility] Comment on above: Order Comment: Speci men Type: BLOOD SPECIMENOrdering Facility: [facility] Address: [address] [place] [address] Performed By: #### 5 7021-8 ####[facility] LABCLIA [id number] [place] [address] [place] Basophils/100 WBC (Bld) 0.6 % Normal C [facility] Comment on above: Order Comment: Speci men Type: BLOOD SPECIMENOrdering Facility: [facility] Address: [address] [place] [address] Performed By: #### 5 7021-8 ####[facility] LABCLIA [id number] [place] [address] [place] Differential cell count method Nom (Bld) Auto Normal [facility] Comment on above: Order Comment: Speci men Type: BLOOD SPECIMENOrdering Facility: [facility] Address: [address] [place] [address] Performed By: #### 5 7021-8 ####[facility] LABCLIA [id number] [place] [address] [place] Eosinophils (Bld) [#/Vol] 0.06 10*3/uL Normal <0.46 [facility] Comment on above: Order Comment: Speci men Type: BLOOD SPECIMENOrdering Facility: [facility] Address: [address] [place] [address] Performed By: #### 5 7021-8 ####[facility] LABCLIA [id number] [address] [place] Eosinophils/100 WBC (Bld) 1.1 % Normal [facility] Comment on above: Order Comment: Speci men Type: BLOOD SPECIMENOrdering Facility: [facility] Address: [address] [place] [address] Performed By: #### 5 7021-8 ####[facility] LABCLIA [id number] [place] [address] [place] Erythrocyte distribution width (RBC) [Ratio] 12.3 % Normal 11.5-15.0 [facility] Comment on above: Order Comment: Speci men Type: BLOOD SPECIMENOrdering Facility: [facility] Address: [address] [place] [address] Performed By: #### 5 7021-8 ####[facility] LABCLIA [id number] [facility] [place] [address] [place] Hematocrit (Bld) [Volume fraction] 43.1 % Normal 36.0-46.0 [facility] Comment on above: Order Comment: Speci men Type: BLOOD SPECIMENOrdering Facility: [facility] Address: [address] [place] [address] Performed By: #### 5 7021-8 ####[facility] LABIA [id number] [place] [address] [place] Hemoglobin (Bld) [Mass/Vol] 14.9 g/dL Normal 11.5-15.5 [facility] Comment on above: Order Comment: Speci men Type: BLOOD SPECIMENOrdering Facility: [facility] Address: [address] [place] [address] Performed By: #### 5 7021-8 ####[facility] LABIA [id number] [address], [place] [address] [place] Immature granulocytes (Bld) [#/Vol] 10*3/uL Normal <0.10 [facility] Comment on above: Order Comment: Speci men Type: BLOOD SPECIMENOrdering Facility: [facility] Address: [address] [place] [address] Performed By: #### 5 7021-8 ####[facility] LABIA [id number] [place] [address] [place] Immature granulocytes/100 WBC (Bld) 0.4 % Normal [facility] Comment on above: Order Comment: Speci men Type: BLOOD SPECIMENOrdering Facility: [facility] Address: [address] [place] [address] Performed By: #### 5 7021-8 ####[facility] LABCLIA [id number] [place] [address] [place] Lymphocytes (Bld) [#/Vol] 1.68 10*3/uL Normal 1.00-4.00 [facility] Comment on above: Order Comment: Speci men Type: BLOOD SPECIMENOrdering Facility: [facility] Address: [address] [place] [address] Performed By: #### 5 7021-8 ####[facility] LABCLIA [id number] [place] [address] [place] Lymphocytes/100 WBC (Bld) 31.9 % Normal [facility] Comment on above: Order Comment: Speci men Type: BLOOD SPECIMENOrdering Facility: [facility] Address: [address] [place] [address] Performed By: #### 5 7021-8 ####[facility] LABCLIA [id number] [place] [address] [place] MCH (RBC) [Entitic mass] 31.7 pg Normal 26.0-34.0 [facility] Comment on above: Order Comment: Speci men Type: BLOOD SPECIMENOrdering Facility: [facility] Address: [address] [place] [address] Performed By: #### 5 7021-8 ####[facility] LABCLIA [id number] [place] [address] [place] MCHC (RBC) [Mass/Vol] 34.6 g/dL Normal 30.5-36.0 [facility] Comment on above: Order Comment: Speci men Type: BLOOD SPECIMENOrdering Facility: [facility] Address: [address] [place] [address] Performed By: #### 5 7021-8 ####[facility] LABCLIA [id number] [place] [address] [place] MCV (RBC) [Entitic vol] 91.7 fL Normal 80.0-100.0 C [facility] Comment on above: Order Comment: Speci men Type: BLOOD SPECIMENOrdering Facility: [facility] Address: [address] [place] [address] Performed By: #### 5 7021-8 ####[facility] LABCLIA [id number] [place] [address] [place] Monocytes (Bld) [#/Vol] 0.69 10*3/uL Normal <0.87 [facility] Comment on above: Order Comment: Speci men Type: BLOOD SPECIMENOrdering Facility: [facility] Address: [address] [place] [address] Performed By: #### 5 7021-8 ####[facility] LABCLIA [id number] [place] [address] [place] Monocytes/100 WBC (Bld) 13.1 % Normal C [facility] Comment on above: Order Comment: Speci men Type: BLOOD SPECIMENOrdering Facility: [facility] Address: [address] [place] [address] Performed By: #### 5 7021-8 ####[facility] LABCLIA [id number] [place] [address] [place] Neutrophils (Bld) [#/Vol] 2.78 10*3/uL Normal 1.45-7.50 [facility] Comment on above: Order Comment: Speci men Type: BLOOD SPECIMENOrdering Facility: [facility] Address: [address] [place] [address] Performed By: #### 5 7021-8 ####[facility] LABCLIA [id number] [place] [address] [place] Neutrophils/100 WBC (Bld) 52.9 % Normal [facility] Comment on above: Order Comment: Speci men Type: BLOOD SPECIMENOrdering Facility: [facility] Address: [address] [place] [address] Performed By: #### 5 7021-8 ####[facility] LABCLIA [id number] [place] [address] [place] Nucleated RBC (Bld) [#/Vol] 10*3/uL Normal <0.01 [facility] Comment on above: Order Comment: Speci men Type: BLOOD SPECIMENOrdering Facility: [facility] Address: [address] [place] [address] Performed By: #### 5 7021-8 ####[facility] LABCLIA [id number] [place] [address] [place] Nucleated RBC/100 WBC (Bld) [Ratio] 0.0 /100 WBC Normal [facility] Comment on above: Order Comment: Speci men Type: BLOOD SPECIMENOrdering Facility: [facility] Address: [address] [place] [address] Performed By: #### 5 7021-8 ####[facility] LABIA [id number] [place] [address] [place] Platelet mean volume (Bld) [Entitic vol] 11.1 fL Normal 9.0-12.7 [facility] Comment on above: Order Comment: Speci men Type: BLOOD SPECIMENOrdering Facility: [facility] Address: [address] [place] [address] Performed By: #### 5 7021-8 ####[facility] LABCLIA [id number] [place] [id number] [place] Platelets (Bld) [#/Vol] 207 10*3/uL Normal 150-400 [facility] Comment on above: Order Comment: Speci men Type: BLOOD SPECIMENOrdering Facility: [facility] Address: [address] [place] [address] Performed By: #### 5 7021-8 ####[facility] LABCLIA [id number] [place] [address] [place] RBC (Bld) [#/Vol] 4.70 10*6/uL Normal 3.90-5.20 [facility] Comment on above: Order Comment: Speci men Type: BLOOD SPECIMENOrdering Facility: [facility] Address: [address] [place] [address] Performed By: #### 5 7021-8 ####[facility] LABIA [id number] [place] [address] [place] WBC (Bld) [#/Vol] 5.26 10*3/uL Normal 3.70-11.00 [facility] Comment on above: Order Comment: Speci men Type: BLOOD SPECIMENOrdering Facility: [facility] Address: [address] [place] [address] Performed By: #### 5 7021-8 ####[facility] LABIA [id number] [place] [address] [place] CK SerPl-cCncon 11-08-2024 CK [Catalytic activity/Vol] 50 U/L Normal 42-196 [facility] Comment on above: Order Comment: Speci men Type: BLOOD SPECIMENOrdering Facility: [facility] Address: [address] [place] [address] Performed By: #### 2 157-6, 16326-2, 61600-8, 3016-3 ####[facility] LABIA [id number] [place] [address] [place] CNOVon 11-08-2024 CNOV Office Visit (FAMPWS) ANGELITA MARLEY ([id number]) 1995 F Date Time Provider Department 11/08/24 8:40 AM CECILE LUIS During your visit today, we recorded the following information about you: Pulse Blood pressure Weight 62/minute 96/70 72.6 kg Cecile Luis APRN.CNP 11/08/2024 9:20 AM Signed This is a 29 year old female who presents today with: Patient presents with: ER F/U: Er follow up HISTORY OF PRESENT ILLNESS: Angelita Marley is a 29 year old female. Patient presents with: ER F/U: Er follow up Angelita Marley is a 29-year-old female presenting for evaluation of chest pain, dysphagia, and headaches. Chest Pain: - Acute onset of severe chest pain woke her from sleep at 0400. - Pain described as extreme, with sensations of pressure and obstruction. - Pain localized to the chest, radiating to the back. - Pain lasted approximately one hour, worsening before subsiding upon arrival at the ER. - Associated symptoms: dyspnea, paresthesia in both hands, cold sensation, and nausea. - Denies cough or frequent throat clearing. - Family history of CAD in maternal grandmother and great-grandmother, both diagnosed after age 65. - Denies tobacco use. Dysphagia: - Angelita reports frequent sensation of food being stuck when eating, particularly with bread and meats. - Longstanding issue, dating back to childhood. - Takes Tums frequently for relief. Headaches: - Angelita has chronic headaches, with increased frequency and severity over the past month. - Describes headaches as starting at the base of the neck, radiating upwards, more severe on one side, and extending into the eye. - Associated symptoms: photophobia, nausea, and desire to rest in a dark, quiet environment. - Headaches last until she can nap; takes Benadryl and ibuprofen for relief. - Reports a constant headache for the past week. - Headaches often coincide with menstrual periods. - Experiences premonitory symptoms, including pain and swelling of lymph nodes behind the ears. 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 - Denies any previous diagnosis of migraines. Chronic Pain: - Angelita reports generalized body pain, including back, shoulders, elbows, and hands. - History of foot surgery and recent tailbone injury in January. - Describes hands as stiff, swollen, and weak, with persistent paresthesia. - Family history of rheumatoid arthritis in father. - Reports feeling like I have so much inflammation in my body. PAST MEDICAL HISTORY: PAST MEDICAL HISTORY Diagnosis Date anxiety Asthma (HCC) sports induced. No attacks since age 16 depression PAST SURGICAL HISTORY Procedure Laterality Date INSERTION OF IUD 07/15/2020 Mirena PAST SURGICAL HISTORY OF wisdom teeth and root canal PAST SURGICAL HISTORY OF Right 03/09/2023 Heel spur removed and tendon cut for plantar fasciitis ALLERGIES Amoxicillin, Dicyclomine, and Seasonal Allergies MEDICATIONS Current Outpatient Medications Medication Sig traZODone (DESYREL) 50 mg tablet Take 1 tablet by mouth daily at bedtime. cetirizine (ZYRTEC) 10 mg tablet Take 10 mg by mouth as needed. fluticasone (FLONASE ALLERGY RELIEF) 50 mcg/actuation nasal spray Use 1 [place] in each nostril two times a day. FLUoxetine (PROZAC) 20 mg capsule Take 1 capsule by mouth once daily. diphenhydramine HCl (BENADRYL ORAL) Take by mouth. No current facility-administere d medications for this visit. FAMILY HISTORY Problem Relation Age of Onset Asthma Mother other (Other tachycardia) Mother other (Other, hernia surgery) Father other (Other irregular heart rate) Father No Known Problems Sister Asthma Sister No Known Problems Brother Asthma Brother Cancer Maternal Grandmother skin cancer No Known Problems Maternal Grandfather Heart Paternal Grandmother other (benign tumor of ear) Paternal Grandmother No Known Problems Paternal Grandfather No Known Problems Son Heart Attack Maternal Uncle 37 Heart Attack Maternal Uncle Social History Tobacco Use Smoking status: Never Smokeless tobacco: Never Vaping Use Vaping status: Never Used Substance Use Topics Alcohol use: Not Currently Comment: occasionally but not while Drug use: No REVIEW OF SYSTEMS Constitutional: (+) chills Head: (+) headache Eyes: (+) photophobia Cardiovascular: (+) chest pain Respiratory: (+) shortness of breath, (-) nocturnal cough Gastrointestinal: (+) dysphagia, (+) nausea Musculoskeletal: (+) back pain, (+) shoulder pain, (+) hand pain, (+) hand stiffness, (+) myalgias, (+) subjective hand swelling Neurological: (+) dizziness, (+) hand paresthesias, (+) hand weakness EXAM: BP 96/70 Pulse 62 Wt 72.6 kg (160 lb) LMP 07/21/2024 (Approximate) SpO2 100% BMI 29.26 kg/m? PHYSICAL EXAM: GENERAL: N (more content not included)... Normal [facility] CT BRAIN ATTACK HEAD WO IV C [facility] 11-08-2024 CT BRAIN ATTACK HEAD WO IV CONTRAST Interpreted By: Gio Martinez, STUDY: CT BRAIN ATTACK HEAD WO IV CONTRAST; 11/08/2024 6:23 pm INDICATION: Signs/Symptoms:strok e. COMPARISON: None. ACCESSION NUMBER(S): [id number] ORDERING CLINICIAN: MOE SANCHEZ TECHNIQUE: Noncontrast axial CT scan of head was performed. Angled reformats in brain and bone windows were generated. The images were reviewed in bone, brain, blood and soft tissue windows. FINDINGS: CSF Spaces: The ventricles, sulci and basal cisterns are within normal limits. There is no extraaxial fluid collection. Parenchyma: The millan-white differentiation is intact. There is no mass effect or midline shift. There is no intracranial hemorrhage. Calvarium: The calvarium is unremarkable. Paranasal sinuses and mastoids: Visualized paranasal sinuses and mastoids are clear. IMPRESSION: No evidence of acute cortical infarct or intracranial hemorrhage. No significant abnormality. If there is persistent concern for acute cerebral insult, CTA and/or MRI is recommended. MACRO: Gio Martinez discussed the significance and urgency of this critical finding by [employer] secure chat with MOE SANCHEZ on 11/08/2024 at 6:33 pm. (-RCF-) Findings: See findings. Signed by: Gio Martinez 11/08/2024 6:33 PM Dictation workstation: [id number] [facility] CT Head WO contraston 2024 No evidence of acute cortical infarct or intracranial hemorrhage. No significant abnormality. If there is persistent concern for acute cerebral insult, CTA and/or MRI is recommended. MACRO: Gio Martinez discussed the significance and urgency of this critical finding by [employer] secure chat with MOE SANCHEZ on 11/08/2024 at 6:33 pm. (-RCF-) Findings: See findings. Signed by: Gio Martinez 11/08/2024 6:33 PM Dictation workstation: [id number] [facility] Interpreted By: Gio Martinez, STUDY: CT BRAIN ATTACK HEAD WO IV CONTRAST; 11/08/2024 6:23 pm INDICATION: Signs/Symptoms:strok e. COMPARISON: None. ACCESSION NUMBER(S): [id number] ORDERING CLINICIAN: MOE SANCHEZ TECHNIQUE: Noncontrast axial CT scan of head was performed. Angled reformats in brain and bone windows were generated. The images were reviewed in bone, brain, blood and soft tissue windows. FINDINGS: CSF Spaces: The ventricles, sulci and basal cisterns are within normal limits. There is no extraaxial fluid collection. Parenchyma: The millan-white differentiation is intact. There is no mass effect or midline shift. There is no intracranial hemorrhage. Calvarium: The calvarium is unremarkable. Paranasal sinuses and mastoids: Visualized paranasal sinuses and mastoids are clear. [facility] - 11/08/2024 Interpreted By: Gio Martinez, STUDY: CT BRAIN ATTACK HEAD WO IV CONTRAST; 11/08/2024 6:23 pm INDICATION: Signs/Symptoms:strok e. COMPARISON: None. ACCESSION NUMBER(S): [id number] ORDERING CLINICIAN: MOE SANCHEZ TECHNIQUE: Noncontrast axial CT scan of head was performed. Angled reformats in brain and bone windows were generated. The images were reviewed in bone, brain, blood and soft tissue windows. FINDINGS: CSF Spaces: The ventricles, sulci and basal cisterns are within normal limits. There is no extraaxial fluid collection. Parenchyma: The millan-white differentiation is intact. There is no mass effect or midline shift. There is no intracranial hemorrhage. Calvarium: The calvarium is unremarkable. Paranasal sinuses and mastoids: Visualized paranasal sinuses and mastoids are clear. IMPRESSION: No evidence of acute cortical infarct or intracranial hemorrhage. No significant abnormality. If there is persistent concern for acute cerebral insult, CTA and/or MRI is recommended. MACRO: Gio Martinze discussed the significance and urgency of this critical finding by EP[employer] secure chat with MOE SANCHEZ on 11/08/2024 at 6:33 pm. (-RCF-) Findings: See findings. Signed by: Gio Martinez 11/08/2024 6:33 PM Dictation workstation: [id number] [facility] Work Phone: Radiology Study observation (narrative) [facility] Work Phone: CT Head WO contrastOrdered B y: Gio Martinez on 11-08-2024 [facility] Work Phone: Coagulation surface inducedo n 11-08-2024 aPTT Coag (PPP) [Time] 29 s Normal 26-36 [facility] Comment on above: Order Comment: The A PTT is no longer used for monitoring Unfractionated Heparin Therapy. For monitoring Heparin Therapy, use the Heparin Assay. Performed By: #### 1 4979-9 #### HERMINIO VELA ([id number]) [facility] ([facility]) [address] [place] [address] Coagulation tissue factor in ducedon 11-08-2024 PT Coag (PPP) [Time] 11.7 s Normal 9.8-12.4 [facility] Comment on above: Performed By: #### 5 902-2 #### HERMINIO VELA ([id number]) [facility] ([facility]) [address] [place] [address] Comprehensive metabolic 2000 panelon 11-08-2024 Albumin BCP dye [Mass/Vol] 4.5 g/dL 3.4 - 5.0 g/dL [facility] ALP [Catalytic activity/Vol] 62 U/L 33 - 110 U/L [facility] ALT With P-5'-P [Catalytic activity/Vol] 32 U/L 7 - 45 U/L [facility] Comment on above: Patients treated wit h Sulfasalazine may generate falsely decreased results for ALT. Anion gap [Moles/Vol] 13 mmol/L 10 - 2 0 mmol/L [facility] AST With P-5'-P [Catalytic activity/Vol] 23 U/L 9 - 39 U/L [facility] Bilirubin [Mass/Vol] 1.7 mg/dL High 0.0 - 1 .2 mg/dL [facility] Calcium [Mass/Vol] 9.7 mg/dL 8.6 - 10. 3 mg/dL [facility] Chloride [Moles/Vol] 100 mmol/L 98 - 10 7 mmol/L [facility] CO2 [Moles/Vol] 27 mmol/L 21 - 32 mmol/L [facility] Creatinine [Mass/Vol] 0.64 mg/dL 0.50 - 1.05 mg/dL [facility] eGFR - PINF [facility] Comment on above: Calculations of xavier mated GFR are performed using the 2020 CKD-EPI Study Refit equation without the race variable for the IDMS-Traceable creatinine methods. https://jasn.asnjournals.org/content/early//ASN.096 5477256 Glucose [Mass/Vol] 89 mg/dL 74 - 99 mg/dL [facility] Interpretation and review of laboratory results Abnormal [facility] Potassium [Moles/Vol] 3.5 mmol/L 3.5 - 5.3 mmol/L [facility] Protein [Mass/Vol] 6.8 g/dL 6.4 - 8.2 g/dL [facility] Sodium [Moles/Vol] 136 mmol/L 136 - 145 mmol/L [facility] Urea nitrogen [Mass/Vol] 7 mg/dL 6 - 23 mg/dL [facility] Albumin BCP dye [Mass/Vol] 4.5 g/dL Normal 3.4-5.0 [facility] Comment on above: Performed By: #### 2 4323-8 #### HERMINIO VELA ([id number]) [facility] ([facility]) [address] [place] [id number] ALP [Catalytic activity/Vol] 62 U/L Normal 33-110 [facility] Comment on above: Performed By: #### 2 4323-8 #### HERMINIO VELA ([id number]) [facility] ([facility]) [address] [place] [address] [id number] ALT With P-5'-P [Catalytic activity/Vol] 32 U/L Normal 7-45 [facility] Comment on above: Result Comment: Desire ents treated with Sulfasalazine may generate falsely decreased results for ALT. Performed By: #### 2 4323-8 #### HERMINIO VELA ([id number]) [facility] ([facility]) [address] [place] [address] Anion gap [Moles/Vol] 13 mmol/L Normal 10-20 [facility] Comment on above: Performed By: #### 2 4323-8 #### HERMINIO VELA ([id number]) [facility] ([facility]) [address] [place] [address] AST With P-5'-P [Catalytic activity/Vol] 23 U/L Normal 9-39 [facility] Comment on above: Performed By: #### 2 432-8 #### HERMINIO VELA ([id number]) [facility] ([facility]) [address] [place] [address] Bilirubin [Mass/Vol] 1.7 mg/dL High 0.0-1.2 [facility] Comment on above: Performed By: #### 2 432-8 #### HERMINIO VELA ([id number]) [facility] ([facility]) [address] [place] [address] Calcium [Mass/Vol] 9.7 mg/dL Normal 8.6-10.3 [facility] Comment on above: Performed By: #### 2 4323-8 #### HERMINIO VELA ([id number]) [facility] ([facility]) [address] [place] [address] Chloride [Moles/Vol] 100 mmol/L Normal 98-107 [facility] Comment on above: Performed By: #### 2 4323-8 #### HERMINIO VELA ([id number]) [facility] ([facility]) [address] [place] [address] CO2 [Moles/Vol] 27 mmol/L Normal 21-32 [facility] Comment on above: Performed By: #### 2 4323-8 #### HERMINIO VELA ([id number]) [facility] ([facility]) [address] [place] [address] Creatinine [Mass/Vol] 0.64 mg/dL Normal 0.50-1.05 [facility] Comment on above: Performed By: #### 2 432-8 #### HERMINIO VELA ([id number]) [facility] ([facility]) [address] [place] [address] GFR/1.73 sq M.predicted MDRD (S/P/Bld) [Vol rate/Area] mL/min/{1.73_m2} Normal >60 [facility] Comment on above: Result Comment: Calc ulations of estimated GFR are performed using the 2020 CKD-EPI Study Refit equation without the race variable for the IDMS-Traceable creatinine methods. https://jasn.asnjournals.org/content/early//ASN.061 2030384 Performed By: #### 2 432-8 #### HERMINIO VELA ([id number]) [facility] ([facility]) [address] [place] [address] Glucose [Mass/Vol] 89 mg/dL Normal 74-99 [facility] Comment on above: Performed By: #### 2 432-8 #### HERMINIO VELA ([id number]) [facility] ([facility]) [address] [place] [address] Potassium [Moles/Vol] 3.5 mmol/L Normal 3.5-5.3 [facility] Comment on above: Performed By: #### 2 432-8 #### HERMINIO VELA ([id number]) [facility] ([facility]) [address] [place] [address] Protein [Mass/Vol] 6.8 g/dL Normal 6.4-8.2 [facility] Comment on above: Performed By: #### 2 4323-8 #### HERMINIO VELA ([id number]) [facility] ([facility]) [address] [place] [address] Sodium [Moles/Vol] 136 mmol/L Normal 136-145 [facility] Comment on above: Performed By: #### 2 4323-8 #### HERMINIO VELA ([id number]) [facility] ([facility]) [address] [place] [address] Urea nitrogen [Mass/Vol] 7 mg/dL Normal 6-23 [facility] Comment on above: Performed By: #### 2 4323-8 #### HERMINIO VELA ([id number]) [facility] ([facility]) [address] [place] [address] Albumin [Mass/Vol] 4.2 g/dL Normal 3.9-4.9 [facility] Comment on above: Order Comment: Speci men Type: BLOOD SPECIMENOrdering Facility: [facility] Address: [address] [place] [address] Performed By: #### 2 157-6, 35784-8, 63273-5, 6-3 ####[facility] LABCLIA [id number] [place] [address] [place] ALP [Catalytic activity/Vol] 66 U/L Normal 34-123 [facility] Comment on above: Order Comment: Speci men Type: BLOOD SPECIMENOrdering Facility: [facility] Address: [address] [place] [address] Performed By: #### 2 157-6, 26172-4, 75241-5, 6-3 ####[facility] LABCLIA [id number] [place] [id number] [place] ALT [Catalytic activity/Vol] 36 U/L Normal 7-38 [facility] Comment on above: Order Comment: Speci men Type: BLOOD SPECIMENOrdering Facility: [facility] Address: [address] [place] [address] Performed By: #### 2 157-6, 77206-9, 64232-6, 3016-3 ####[facility] LABCLIA [id number] [address] [address] [place] Anion gap [Moles/Vol] 9 mmol/L Normal 8-15 [facility] Comment on above: Order Comment: Speci men Type: BLOOD SPECIMENOrdering Facility: [facility] Address: [address] [place] [address] Performed By: #### 2 157-6, 80623-3, 38269-8, 3016-3 ####[facility] LABCLIA [id number] [place] [id number] [place] AST [Catalytic activity/Vol] 27 U/L Normal 13-35 [facility] Comment on above: Order Comment: Speci men Type: BLOOD SPECIMENOrdering Facility: [facility] Address: [address] [place] [address] Performed By: #### 2 157-6, 17395-8, 50091-7, 3016-3 ####[facility] LABCLIA [id number] [place] [address] [place] Bilirubin [Mass/Vol] 1.2 mg/dL Normal 0.2-1.3 [facility] Comment on above: Order Comment: Speci men Type: BLOOD SPECIMENOrdering Facility: [facility] Address: [address] [place] [address] Performed By: #### 2 157-6, 44558-4, 92245-2, 3016-3 ####[facility] LABCLIA [id number] [place] [id number] [place] Calcium [Mass/Vol] 9.8 mg/dL Normal 8.5-10.2 [facility] Comment on above: Order Comment: Speci men Type: BLOOD SPECIMENOrdering Facility: [facility] Address: [address] [place] [address] Performed By: #### 2 157-6, 77098-1, 88596-4, 3016-3 ####[facility] LABCLIA [id number] [place] [id number] [place] Chloride [Moles/Vol] 103 mmol/L Normal 98-107 [facility] Comment on above: Order Comment: Speci men Type: BLOOD SPECIMENOrdering Facility: [facility] Address: [address] [place] [address] Performed By: #### 2 157-6, 17009-5, 81085-2, 3016-3 ####[facility] LABCLIA [id number] [place] [address] [place] CO2 [Moles/Vol] 27 mmol/L Normal 22-30 [facility] Comment on above: Order Comment: Speci men Type: BLOOD SPECIMENOrdering Facility: [facility] Address: [address] [place] [address] Performed By: #### 2 157-6, 95041-9, 82833-3, 3016-3 ####[facility] LABCLIA [id number] [place] [address] [place] Creatinine [Mass/Vol] 0.68 mg/dL Normal 0.58-0.96 [facility] Comment on above: Order Comment: Speci men Type: BLOOD SPECIMENOrdering Facility: [facility] Address: [address] [place] [address] Performed By: #### 2 157-6, 71872-6, 49575-6, 3016-3 ####[facility] LABCLIA [id number] [place] [address] [place] Creatinine and Glomerular filtration rate.predicted panel (S/P/Bld) 120 mL/min/1.73m??? Normal >=60 [facility] Comment on above: Order Comment: Speci men Type: BLOOD SPECIMENOrdering Facility: [facility] Address: [address] [place] [address] Result Comment: Xavier mated Glomerular Filtration Rate (eGFR) is calculated using the 2020 CKD-EPI creatinine equation. This equation utilizes serum creatinine, sex, and age as parameters. The creatinine assay has traceable calibration to isotope dilution-mass spectrometry. Refer to KDIGO guidelines for clinical interpretation. In patients with unstable renal function, e.g. those with acute kidney injury, the eGFR may not accurately reflect actual GFR. Performed By: #### 2 157-6, 12543-6, 96779-9, 6-3 ####[facility] LABCLIA [id number] [facility] [address] [address] [place] Glucose [Mass/Vol] 82 mg/dL Normal 74-99 [facility] Comment on above: Order Comment: Leona dalal Type: BLOOD SPECIMENOrdering Facility: [facility] Address: [address] [place] [address] Result Comment: The [place] Diabetes Association (ADA) provides guidance for cutoff values for fasting glucose and random glucose. The ADA defines fasting as no caloric intake for at least 8 hours. Fasting plasma glucose results between 100 to 125 mg/dL indicate increased risk for diabetes (prediabetes). Fasting plasma glucose results greater than or equal to 126 mg/dL meet the criteria for diagnosis of diabetes. In the absence of unequivocal hyperglycemia, results should be confirmed by repeat testing. In a patient with classic symptoms of hyperglycemia or hyperglycemic crisis, random plasma glucose results greater than or equal to 200 mg/dL meet the criteria for diagnosis of diabetes. Reference: Standards of Medical Care in Diabetes 2016, [place] Diabetes Association. Diabetes Care. 2016.39(Suppl 1). Performed By: #### 2 157-6, 50709-9, 41750-4, 6-3 ####[facility] LABCLIA [id number] [facility] [address] [address] [place] Potassium [Moles/Vol] 4.8 mmol/L Normal 3.7-5.1 [facility] Comment on above: Order Comment: Leona dalal Type: BLOOD SPECIMENOrdering Facility: [facility] Address: [address] [place] [address] Performed By: #### 2 157-6, 83111-8, 34768-0, 6-3 ####[facility] LABCLIA [id number] [facility] [place] [id number] [place] Protein [Mass/Vol] 6.8 g/dL Normal 6.3-8.0 [facility] Comment on above: Order Comment: Speci men Type: BLOOD SPECIMENOrdering Facility: [facility] Address: [address] [place] [address] Performed By: #### 2 157-6, 15096-4, 92903-0, 3016-3 ####[facility] LABCLIA [id number] [place] [address] [place] Sodium [Moles/Vol] 139 mmol/L Normal 136-144 [facility] Comment on above: Order Comment: Speci men Type: BLOOD SPECIMENOrdering Facility: [facility] Address: [address] [place] [address] Performed By: #### 2 157-6, 30026-1, 60507-1, 3016-3 ####[facility] LABCLIA [id number] [place] [address] [place] Urea nitrogen [Mass/Vol] 6 mg/dL Low 7-21 [facility] Comment on above: Order Comment: Speci men Type: BLOOD SPECIMENOrdering Facility: [facility] Address: [address] [place] [address] Performed By: #### 2 157-6, 10666-0, 02133-0, 3016-3 ####[facility] LABCLIA [id number] [place] [id number] [place] ECG 12-LEADon 11-08-2024 ECG 12-LEAD Ventricular Rate 72 Atrial Rate 72 P-R Interval 158 QRS Duration 72 Q-T Interval 406 QTC Calculation(Bazett) 444 P [place] 45 R [place] 39 T [place] 29 QRS Count 12 Q Onset 220 P Onset 141 P Offset 199 T Offset 423 QTC Fredericia 431 Diagnosis Normal sinus rhythm Normal ECG No previous ECGs available See ED provider note for full interpretation and clinical correlation Confirmed by Maxi Desai ([id number]) on 11/13/2024 7:51:22 PM Normal [facility] Glucose Test strip manual (B ld) [Mass/Vol]on 11-08-2024 Glucose [Mass/Vol] 97 mg/dL 74 - 99 mg/dL [facility] Interpretation and review of laboratory results Normal [facility] Glucose [Mass/Vol] 97 mg/dL Normal 74-99 [facility] Comment on above: Performed By: #### 2 341-6 #### DURHAM DANE ([id number]) [facility] ([facility]) [address] [place] [address] Lipaseon 11-08-2024 Lipase [Catalytic activity/Vol] 22 U/L 9 - 82 U/L [facility] Comment on above: E-rjpvjc-j-benzoquin one imine (metabolite of Acetaminophen)will generate erroneously low results in samples for patients that have taken toxic doses of acetaminophen. Lipase [Catalytic activity/V ol]on 11-08-2024 Interpretation and review of laboratory results Normal [facility] Venipuncture immediately after or during the administration of Metamizole may lead to falsely low results. Testing should be performed immediately prior to Metamizole dosing. [facility] MR BRAIN W AND WO IV CONTRAS Ton 11-08-2024 MR BRAIN W AND WO IV CONTRAST Interpreted By: Breanna Leonard, STUDY: MR BRAIN W AND WO IV CONTRAST; 11/08/2024 8:15 pm INDICATION: Signs/Symptoms:visua l field deficits. COMPARISON: Same day noncontrast CT head. ACCESSION NUMBER(S): [id number] ORDERING CLINICIAN: MAXI CASTREJON TECHNIQUE: Multiplanar and multisequence MRI of the brain was performed before and after intravenous administration of 20 mL of Dotarem gadolinium contrast. FINDINGS: No diffusion restriction abnormality is present to suggest a recent infarct. There is no evidence of recent intracranial hemorrhage. No mass effect or midline shift is present. There is no evidence of hemosiderin staining. No abnormal ventricular dilatation is present. Basal cisterns are patent. No extra-axial collection is identified. No discrete brain parenchymal signal abnormality is present on FLAIR or T2 weighted images. Visualized large arterial flow voids, including intracranial carotid, basilar and posterior cerebral appear intact. No pathologic intracranial enhancement is identified. Dural venous sinuses demonstrate expected enhancement without evidence of filling defect/thrombus. No abnormal fluid signal is present in the mastoid air cells or paranasal sinuses. Visualized orbits appear unremarkable. IMPRESSION: Unremarkable MRI of the brain. MACRO: None Signed by: Breanna Leonard 11/08/2024 9:03 PM Dictation workstation: [id number] [facility] MR Brain WO and W contrast I José 11-08-2024 Unremarkable MRI of the brain. MACRO: None Signed by: Breanna Leonard 11/08/2024 9:03 PM Dictation workstation: [id number] MMANISHA Interpreted By: Breanna Leonard, STUDY: MR BRAIN W AND WO IV CONTRAST; 11/08/2024 8:15 pm INDICATION: Signs/Symptoms:visua l field deficits. COMPARISON: Same day noncontrast CT head. ACCESSION NUMBER(S): [id number] ORDERING CLINICIAN: MAXI CASTREJON TECHNIQUE: Multiplanar and multisequence MRI of the brain was performed before and after intravenous administration of 20 mL of Dotarem gadolinium contrast. FINDINGS: No diffusion restriction abnormality is present to suggest a recent infarct. There is no evidence of recent intracranial hemorrhage. No mass effect or midline shift is present. There is no evidence of hemosiderin staining. No abnormal ventricular dilatation is present. Basal cisterns are patent. No extra-axial collection is identified. No discrete brain parenchymal signal abnormality is present on FLAIR or T2 weighted images. Visualized large arterial flow voids, including intracranial carotid, basilar and posterior cerebral appear intact. No pathologic intracranial enhancement is identified. Dural venous sinuses demonstrate expected enhancement without evidence of filling defect/thrombus. No abnormal fluid signal is present in the mastoid air cells or paranasal sinuses. Visualized orbits appear unremarkable. MMODAL Breanna Leonard MD - 11/08/2024 Interpreted By: Breanna Leonard, STUDY: MR BRAIN W AND WO IV CONTRAST; 11/08/2024 8:15 pm INDICATION: Signs/Symptoms:visua l field deficits. COMPARISON: Same day noncontrast CT head. ACCESSION NUMBER(S): [id number] ORDERING CLINICIAN: MAXI CASTREJON TECHNIQUE: Multiplanar and multisequence MRI of the brain was performed before and after intravenous administration of 20 mL of Dotarem gadolinium contrast. FINDINGS: No diffusion restriction abnormality is present to suggest a recent infarct. There is no evidence of recent intracranial hemorrhage. No mass effect or midline shift is present. There is no evidence of hemosiderin staining. No abnormal ventricular dilatation is present. Basal cisterns are patent. No extra-axial collection is identified. No discrete brain parenchymal signal abnormality is present on FLAIR or T2 weighted images. Visualized large arterial flow voids, including intracranial carotid, basilar and posterior cerebral appear intact. No pathologic intracranial enhancement is identified. Dural venous sinuses demonstrate expected enhancement without evidence of filling defect/thrombus. No abnormal fluid signal is present in the mastoid air cells or paranasal sinuses. Visualized orbits appear unremarkable. IMPRESSION: Unremarkable MRI of the brain. MACRO: None Signed by: Breanna Leonard 11/08/2024 9:03 PM Dictation workstation: [id number] [facility] Work Phone: Radiology Study observation (narrative) [facility] Work Phone: MR Brain WO and W contrast I VOrdered By: Breanna Leonard on 11-08-2024 [facility] Work Phone: Magnesium SerPl-mCncon 11-08 Magnesium [Mass/Vol] 2.0 mg/dL Normal 1.7-2.3 [facility] Comment on above: Order Comment: Speci men Type: BLOOD SPECIMENOrdering Facility: [facility] Address: [address] [place] [address] Performed By: #### 2 157-6, 25974-0, 70605-8, 3016-3 ####[facility] LABCLIA [id number] [place] [address] [place] No Panel Informationon 11-08 Interpretation and review of laboratory results Normal [facility] POCT glucoseon 11-08-2024 Glucose [Mass/Vol] 97 mg/dL 74 - 99 mg/dL [facility] Work Phone: Interpretation and review of laboratory results Normal [facility] Work Phone: [facility] Work Phone: PT Coag (PPP) [Time]on 11-08 INR Coag (PPP) [Relative time] 1.1 {INR} 0.9 - 1.1 [facility] INR Coag (PPP) [Relative time] 1.1 Normal 0.9-1.1 [facility] Comment on above: Performed By: #### 5 902-2 #### DURHAM DANE ([id number]) [facility] ([facility]) [address] [place] [address] Protime-INRon 11-08-2024 PT Coag (PPP) [Time] 11.7 s [facility] TSH SerPl-aCncon 11-08-2024 TSH Qn 2.070 m[IU]/L Normal 0.270-4.200 [facility] Comment on above: Order Comment: Speci men Type: BLOOD SPECIMENOrdering Facility: [facility] Address: [address] [place] [address] Result Comment: If t he patient is , TSH reference range varies by gestational period: First Trimester (weeks 9-12): 0.180-2.990 mIU/L Second Trimester: 0.110-3.980 mIU/L Third Trimester: 0.480-4.710 mIU/L Phillip Bradford et al. A Practical Approach for the Verifications and Determination of Site- and Trimester-Specific Reference Intervals for Thyroid Function tests in . Thyroid, 2019:29:3:412-420. Malik E, et al. 2017 Guidelines of the [place] Thyroid Association for the Diagnosis and Management of Thyroid Disease during and the . Thyroid, 2017:27:3:315-389. Performed By: #### 2 157-6, 48742-8, 85770-6, 3016-3 ####[facility] LABCLIA [id number] [address] [place] Triacylglycerol lipaseon Lipase [Catalytic activity/Vol] 22 U/L Normal 9-82 [facility] Comment on above: Order Comment: Venip uncture immediately after or during the administration of Metamizole may lead to falsely low results. Testing should be performed immediately prior to Metamizole dosing. Result Comment: N-ac jrfa-l-fcfodeadnwex imine (metabolite of Acetaminophen)will generate erroneously low results in samples for patients that have taken toxic doses of acetaminophen. Performed By: #### 3 040-3 #### DURHAM DANE ([id number]) [facility] ([facility]) [address] [place] [address] Tropinin I.cardiac panel Hig h sensitivity methodon 11-08-2024 Interpretation and review of laboratory results Normal [facility] Less than 99th percentile of normal range cutoff- Female and children under 18 years old <14 ng/L; Male <21 ng/L: Negative Repeat testing should be performed if clinically indicated. Female and children under 18 years old 14-50 ng/L; Male 21-50 ng/L: Consistent with possible cardiac damage and possible increased clinical risk. Serial measurements may help to assess extent of myocardial damage. >50 ng/L: Consistent with cardiac damage, increased clinical risk and myocardial infarction. Serial measurements may help assess extent of myocardial damage. NOTE: Children less than 1 year old may have higher baseline troponin levels and results should be interpreted in conjunction with the overall clinical context. NOTE: Troponin I testing is performed using a different testing methodology at [facility] than at other [facility]. Direct result comparisons should only be made within the same method. [facility] Troponin I, High Sensitivity on 11-08-2024 Tropinin I.cardiac panel High sensitivity method ng/L 0 - 13 ng/L [facility] Troponin I.cardiac panelon 0 11-08-2024 Tropinin I.cardiac panel High sensitivity method <3 Normal 0-13 [facility] Comment on above: Order Comment: Less than 99th percentile of normal range cutoff- Female and children under 18 years old <14 ng/L; Male <21 ng/L: Negative Repeat testing should be performed if clinically indicated. Female and children under 18 years old 14-50 ng/L; Male 21-50 ng/L: Consistent with possible cardiac damage and possible increased clinical risk. Serial measurements may help to assess extent of myocardial damage. >50 ng/L: Consistent with cardiac damage, increased clinical risk and myocardial infarction. Serial measurements may help assess extent of myocardial damage. NOTE: Children less than 1 year old may have higher baseline troponin levels and results should be interpreted in conjunction with the overall clinical context. NOTE: Troponin I testing is performed using a different testing methodology at [facility] than at other [facility]. Direct result comparisons should only be made within the same method. Performed By: #### 8 9577-1 #### DURHAM DANE ([id number]) [facility] ([facility]) [address] [place] [address] Vit B12 [facility] 10-2 025 Cobalamin (Vitamin B12) [Mass/Vol] 899 pg/mL Normal 232-1245 [facility] Comment on above: Order Comment: Speci men Type: BLOOD SPECIMENOrdering Facility: [facility] Address: [address] [place] [address] Performed By: #### 2 132-9 ####[facility] LABCLIA [id number] [place] [address] [place] XR HAND/WRIST SURVEY 1V PA B [facility] 11-08-2024 XR HAND/WRIST SURVEY 1V PA MACKENZIE * * *Final Report* * * DATE OF EXAM: Nov 08 2024 10:04AM WOX [id number] - XR HAND/WRIST SURVEY 1V PA MACKENZIE / PROCEDURE REASON: multiple diagnoses * * * * Physician Interpretation * * * * EXAMINATION: XR HAND/WRIST SURVEY 1V PA MACKENZIE HISTORY: Pt. states chronic bilat hand and wrist pain. No injury. Bilateral hand pain Bilateral hand pain . TECHNIQUE: XR HAND/WRIST SURVEY 1V PA MACKENZIE Laterality: BILATERAL Number of different views (projections): 1 M: XB_1 COMPARISON: RESULT: Joint spaces are maintained. No chondrocalcinosis. No acute fracture or dislocation. There are no bony erosions. IMPRESSION: No radiographic findings of inflammatory arthropathy. Funeral Pre Arrangement Specialist: ERIC Transcribe Date/Time: Nov 17 2024 8:48A Dictated by : EMELI PAK MD This examination was interpreted and the report reviewed and electronically signed by: EMELI APK MD on Nov 17 2024 8:49AM EST [id number] Normal [facility] [facility] aPTT Coag (PPP) [Time]on The APTT is no longer used for monitoring Unfractionated Heparin Therapy. For monitoring Heparin Therapy, use the Heparin Assay. [facility] Absolute lymphocyte countOrd ered By: Rj Jo on 11-07-2024 Lymphocytes Auto (Unsp spec) [#/Vol] 1.11 10*3/uL 0.83-4.51 [facility] Absolute neutrophil countOrd ered By: Rj Jo on 11-07-2024 Neutrophils (Bld) [#/Vol] 4.0 10*3/uL 2.0-7.7 [facility] Anion gap in Serum or Plasma Ordered By: Rj Jo on 11-07-2024 Anion gap [Moles/Vol] 13 mmol/L 5-15 [facility] Automated blood erythrocyte countOrdered By: Rj Jo on 11-07-2024 RBC (Bld) [#/Vol] 4.53 10*6/uL Normal 4.2-5.4 [facility] Comment on above: Performed By: #### L 500.2500, L100.0100, L700.6800, L501.4021, L501.9520 #### [facility] [address] [place], [place], [id number] Automated blood hematocrit ( percentage)Ordered By: Rj Jo on 11-07-2024 Hematocrit (Bld) [Volume fraction] 40.8 % Normal 37-47 [facility] Comment on above: Performed By: #### L 500.2500, L100.0100, L700.6800, L501.4021, L501.9520 #### [facility] [address] [place], [place], [id number] Automated lymphocyte count a s percentage of total leukocytesOrdered By: Rj Jo on 11-07-2024 Lymphocytes/100 WBC Auto (Unsp spec) 19.5 % 19-41 [facility] BUN/creatinine ratioOrdered By: Rj Jo on 11-07-2024 Urea nitrogen/Creatinine [Mass ratio] 13.0 mg/mg 10-20 [facility] Basic Metabolic Profile (BMP )on 11-07-2024 BUN/CRE 13.0 RATIO Normal 10-20 [facility] Comment on above: Performed By: #### L 500.2500, L100.0100, L700.6800, L501.4021, L501.9520 #### [facility] [address] [place], [address] ECRCL 119.90 ml/min Normal 50-250 [facility] Comment on above: Performed By: #### L 500.2500, L100.0100, L700.6800, L501.4021, L501.9520 #### [facility] [address] [place], [address] GAP 13 Normal 5-15 [facility] Comment on above: Performed By: #### L 500.2500, L100.0100, L700.6800, L501.4021, L501.9520 #### [facility] [address] [place], [address] Potassium [Moles/Vol] 4.2 mmol/L Normal 3.3-5.1 [facility] Comment on above: Result Comment: Hemo lysis present, Results??could be affected. ?? Performed By: #### L 500.2500, L100.0100, L700.6800, L501.4021, L501.9520 #### [facility] [address] [place], [address] Basophil percentageOrdered B y: Rj Jo on 11-07-2024 Basophils/100 WBC (Bld) 0.5 % Normal [facility] Comment on above: Performed By: #### L 500.2500, L100.0100, L700.6800, L501.4021, L501.9520 #### [facility] [address] [place], [address] CBC W/Diff, Automatedon 07-0 9-2024 Absolute Lymph 1.11 X10 3/uL Normal 0.83-4.51 [facility] Comment on above: Performed By: #### L 500.2500, L100.0100, L700.6800, L501.4021, L501.9520 #### [facility] [address] [place], [address] Absolute Neut 4.0 X10 3/uL Normal 2.0-7.7 [facility] Comment on above: Performed By: #### L 500.2500, L100.0100, L700.6800, L501.4021, L501.9520 #### [facility] [address] [place], [address] IG% 0.400 Normal 0.0-0.9 [facility] Comment on above: Result Comment: IG% - Immature Granulocytes (promyelocytes, myelocytes and metamyelocytes) > 1% indicates that a LEFT SHIFT is Present. Performed By: #### L 500.2500, L100.0100, L700.6800, L501.4021, L501.9520 #### [facility] [address] [place], [address] Lymphocytes/100 WBC (Bld) 19.5 % Normal 19-41 [facility] Comment on above: Performed By: #### L 500.2500, L100.0100, L700.6800, L501.4021, L501.9520 #### [facility] [address] [place], [address] Nucleated RBC (Bld) [#/Vol] 0 10*3/uL Normal 0-5 [facility] Comment on above: Performed By: #### L 500.2500, L100.0100, L700.6800, L501.4021, L501.9520 #### [facility] [address] [place], [address] RDW SD 39.5 fl Normal 35.1-43.9 [facility] Comment on above: Performed By: #### L 500.2500, L100.0100, L700.6800, L501.4021, L501.9520 #### [facility] [address] [place], [address] PULMONARY ARTERIES EXAMINATION: CT PULMONARY ARTERIES: 11/07/2024. HISTORY: ORDERING SYSTEM PROVIDED HISTORY: Pulmonary embolism (PE) suspected, high prob, TECHNOLOGIST PROVIDED HISTORY: Illness/Other Reason for exam: elevated d-dimer midsternal ache and pain in chest Encounter Type: Initial Additional signs and symptoms: na ORDERING SYSTEM PROVIDED DIAGNOSIS CODES: R07.9 Chest pain, unspecified type R79.89 Positive D-dimer COMPARISON: CT pulmonary angiogram 09/26/2022, AP chest 10/11/2024. TECHNIQUE: 2.5 mm axial images from thoracic inlet through upper abdomen following administration of intravenous contrast were obtained. Sagittal, coronal MIP (maximum intensity projection) were also obtained. Dose reduction techniques were achieved by using automated exposure control and/or adjustment of mA and/or kV according to patient size and/or use of iterative reconstruction technique. CONTRAST: IOPAMIDOL 370 MG IODINE/ML (76 %) INTRAVENOUS SOLUTION - 75 mL, FINDINGS: Lungs appear unremarkable. No definite filling defects are seen in the opacified portions of superior vena cava. Main, left, right pulmonary arteries are widely patent. No definite filling defects are seen in the lobar or the segmental branches. The visualized liver, spleen, gallbladder, pancreas, adrenal glands, left kidney appears normal. The visualized thyroid, great vessels, aorta, pericardium and the cardiac structures appear normal. There is no significant axillary, hilar or mediastinal adenopathy. Visualized osseous structures appear normal. IMPRESSION: 1. No pulmonary embolic disease. 2. No dissection or aneurysm of thoracic aorta. 3. Normal-appearing lungs. [employer]/pSivid[employer] Workstation ID: [id number] Dictated by: COY PAZ on TueNov 07, 2024 7:15:39 AM EDT Transcribed by: KANDIS WHARTON on TueNov 07, 2024 7:30:57 AM EDT Finalized by: COY PAZ on TueNov 07, 2024 9:01:53 AM EDT [facility] Comment on above: Order Comment: [facility] has implemented the eGFR calculation approach that does not have a coefficient for race that conforms to the NKF-ASN Task Force Recommendations. Carbon dioxide, total [Moles /volume] in Central venous bloodOrdered By: Rj Jo on 11-07-2024 CO2 [Moles/Vol] 23.0 mmol/L Normal 21.0-32.0 [facility] Comment on above: Performed By: #### L 500.2500, L100.0100, L700.6800, L501.4021, L501.9520 #### [facility] [address] [place], [address] Chest PA and Lateralon 11-07 Chest PA and Lateral [facility] Services [address] [place] [address] Chest PA and Lateral MR#: [id number] Acct: [id number] Name: ANGELITA MARLEY Rep #: [id number] : 1995 F 29 From: Jc Cadet MD PCP: Munir Allison MD Status: REG ER Study: Chest PA and Lateral Date of Exam: 11/07/24 Exam# [id number] Ordering Dr: Rj Jo DO PROCEDURE: CHEST PA AND LATERAL 11/07/2024 REASON FOR EXAM: CHEST PAIN TECHNIQUE: CHEST PA AND LATERAL COMPARISON: None. FINDINGS: The heart is normal in size. The lungs are clear. No acute osseous abnormalities. RAD/Chest PA and Lateral IMPRESSION: No acute cardiopulmonary abnormalities. Reading Location: [id number] CC: Dr. Rj Jo DO; Munir Allison MD [employer] Pre Arrangement Specialist: Signed Normal [facility] Chloride assayOrdered By: Ron justin Jo on 11-07-2024 Chloride [Moles/Vol] 99 mmol/L Normal 98-108 [facility] Comment on above: Performed By: #### L 500.2500, L100.0100, L700.6800, L501.4021, L501.9520 #### [facility] [address] [place], [address] ED Prov Noteon 11-07-2024 ED Prov Note ED PROVIDER NOTE [facility] EM[facility] NAME: Angelita Marley AGE: 29 y.o. : 1995 VISIT DATE: 11/07/2024 CSN: [id number] PCP: Nieves, Physician Chief Complaint Patient presents with Chest Pain Patient is a 29-year-old female with a past medical history of anxiety, asthma and depression presents today for concern of chest pain. Patient states this morning she awoke with epigastric midsternal chest discomfort which is sharp. Patient states she has had the symptoms for last few months intermittently. Patient states Emergency department multiple times and has had multiple negative cardiac evaluations. Patient states a recent echo which was clinically unremarkable. Patient states has a follow-up point with cardiology in [place]. Patient also states her last 2 years she has had difficulty swallowing steak and other foods. Patient denies any current concern for food bolus. Patient denies any associated shortness of breath, history of DVT/PE abdominal pain, fevers, productive cough, dark or bloody stools, nausea, vomiting, lightheadedness, dizziness or syncope. Patient's pain has improved since she awoke this morning. Past Medical History: Diagnosis Date Anxiety Asthma as a child. exercise induced. Depression Past Surgical History: Procedure Laterality Date HEEL SPUR RESECTION Right 03/09/2023 Procedure: Plantar Fasciotomy with Heel spur resection - RIGHT foot.; Surgeon: Gio Richardson DPM; [place] [facility]; Service: Podiatry WISDOM TOOTH EXTRACTION Family History Problem Relation Age of Onset No Known Problems Mother No Known Problems Father No Known Problems Sister No Known Problems Brother Social History [1] Previous Medications Medication Sig busPIRone (BUSPAR) 10 MG tablet Take 1 (one) tablet (10 mg total) by mouth 3 (three) times a day . (Patient not taking: Reported on 09/29/2023 .) diphenhydramine HCl (UNISOM SLEEPGELS ORAL) Take by mouth PRN . escitalopram oxalate (LEXAPRO) 10 MG tablet Take 1 (one) tablet (10 mg total) by mouth daily . (Patient not taking: Reported on 09/29/2023 .) FLUoxetine (PROZAC) 20 MG capsule Take 1 (one) capsule (20 mg total) by mouth daily . ibuprofen (ADVIL,MOTRIN) 800 MG tablet Take 1 (one) tablet (800 mg total) by mouth every 6 (six) hours as needed for pain . meloxicam (MOBIC) 15 MG tablet Take 1 (one) tablet (15 mg total) by mouth daily . meloxicam (MOBIC) 15 MG tablet Take 1 (one) tablet (15 mg total) by mouth daily . prochlorperazine (Compazine) 10 MG tablet Take 1 (one) tablet (10 mg total) by mouth every 6 (six) hours as needed for nausea . traZODone (DESYREL) 50 MG tablet Take 1 (one) tablet (50 mg total) by mouth every night at bedtime . UNABLE TO FIND OTC Allergy Medication PRN . Allergies[2] Review of Systems Constitutional: Negative for chills and fever. Eyes: Negative for pain. Respiratory: Negative for cough, chest tightness and shortness of breath. Cardiovascular: Positive for chest pain. Negative for palpitations. Gastrointestinal: Negative for abdominal pain, nausea and vomiting. Genitourinary: Negative for flank pain. Musculoskeletal: Negative for arthralgias and myalgias. Skin: Negative for rash. Neurological: Negative for dizziness, syncope, light-headedness and headaches. Psychiatric/Behavior al: Negative for agitation. All other systems reviewed and are negative. Patient Vitals for the past 24 hrs: BP Temp Pulse Resp SpO2 Weight 11/07/24 0715 121/80 -- 68 (!) 19 98 % -- 11/07/24 0635 119/86 -- 75 16 99 % -- 11/07/24 0542 (!) 120/90 97.9 degrees F (36.6 degrees C) 75 16 96 % 71.2 kg (157 lb) Physical Exam Vitals and nursing note reviewed. Constitutional: Appearance: Normal appearance. HENT: Head: Normocephalic. Eyes: Pupils: Pupils are equal, round, and reactive to light. Cardiovascular: Rate and Rhythm: Normal rate and regular rhythm. Pulses: Normal pulses. Heart sounds: Normal heart sounds. Musculoskeletal: Cervical back: Normal range of motion. Pulmonary: Effort: Pulmonary effort is normal. Breath sounds: Normal breath sounds. Chest: Chest wall: No mass, tenderness or edema. Abdominal: General: There is no abdominal bruit. Palpations: Abdomen is soft. There is no hepatomegaly or mass. Comments: Epigastric pain Skin: General: Skin is warm. Capillary Refill: Capillary refill takes less than 2 seconds. Neurological: General: No focal deficit present. Mental Status: She is alert. Psychiatric: Mood and Affect: Mood normal. Laboratory & Radiographic Imaging (if done): Results for orders placed or performed during the hospital encounter of 11/07/24 POC CBC and Differential Result Value Ref Range WBC 4.30 (L) 4.50 - 11.00 K/mcL RBC 4.47 4.00 - 5.20 M/mcL Hemoglobin 14.6 12.0 - 16.0 g/dL Hematocrit 40.5 36.0 - 46.0 % MCV 90.6 80.0 - 100.0 fL MCH 32.7 26.0 - 34.0 pg MCHC 36.0 31.0 - (more content not included)... Normal [facility] Emergency Department Summary on 11-07-2024 Emergency Department Summary [facility] Medical Records Department [address] [place] [id number] Emergency Department Summary 11/07/24 MR#: [id number] Acct: [id number] Name: ANGELITA MARLEY Rep #: [id number] : 1995 29 From: Rj Jo DO PCP: Keegan HIGGINBOTHAM,Munir Status:REG ER Location: ED HPI History of Present Illness Chief Complaint: Chest Pain Narrative Narrative: Patient is a 29-year-old female with past medical history anxiety, asthma who presented to the emergency department with a chief complaint of chest pain. States that around 4 AM this morning she woke up with chest discomfort and states that this has been constant nothing makes this better or worse. She states that she went to another hospital at [facility] she had a workup including a D- dimer that was elevated then underwent a CAT scan of her chest that was noted to be normal. She states that she has continued pain which prompted her to come to the emergency department here at [place] to be further evaluated. When inquiring about any cardiac enzyme she states that she does not believe that this was done. Patient denies any control use denies any recent travels denies any history of blood clots [facility] Medical History RLQ abdominal pain Asthma Anxiety Home Medications ???Medication ???Instructions ???Recorded ???Last Taken ???Type Prenatabs FA 1 tab PO DAILY Check with primary 01/18/19 05/07/20 History doctor ibuprofen 600 mg tablet 600 mg PO Q6H PRN PRN Pain Score 0 05/09/20 Unknown Rx 1-3 #30 tabs buspirone 10 mg tablet 10 mg PO BID 07/01/22 Unknown Hist ory escitalopram oxalate 10 mg tablet 10 mg PO DAILY 07/01/22 Unknown H istory famotidine 20 mg tablet 20 mg PO DAILY 07/01/22 Unknown Hi story ondansetron HCl 4 mg tablet 4 mg PO Q8H 07/01/22 Unknown Histo ry pantoprazole 40 mg tablet,delayed 40 mg PO DAILY 07/01/22 Unknown H istory release sucralfate 100 mg/mL oral 10 ml PO BID 07/01/22 Unknown Hist ory suspension Allergy/AdvReac Type Severity Reaction Status Date / Time amoxicillin Allergy Unknown Verified 11/07/24 14:36 Family History Mother Heart disease Social History Smoking Status: Never smoker alcohol intake: never ROS ROS ED ROS Narrative Constitutional: Complains of headache denies lightheaded, dizziness Eyes: Denies double vision Cardiovascular: Complains of chest pain as noted above denies palpitations Respiratory: Complains of shortness of breath denies coughing wheezing Abdomen: Denies abdominal pain nausea vomit diarrhea : Denies any urinary symptoms Neurological: Denies any numbness, weakness, tingling Musculoskeletal: States that her chest pain radiates to her back Skin: Denies any rashes or lesions EXAM Physical Exam Narrative Exam Narrative: General: Patient was lying in bed was tearful but not appear to be in acute distress Head: Atraumatic, normocephalic Eyes: PERRL bilaterally, EOMI blood, no conjunctival injection noted Neck: Soft, supple, trachea midline Cardiovascular: Regular rate and rhythm Respiratory: Clear to auscultation bilaterally Abdomen: Soft, nondistended, nontender to palpation Extremities: +5/5 strength noted in the bilateral upper and lower extremities, radial pulses +2/4 in the bilateral extremities Neurological: Patient following commands knew that she was at [facility] year is 2024. NIH is 0 GCS 15 Skin: Warm, dry, tact no rashes or lesions noted Const Vital Signs: 11/07/24 14:36 11/07/24 14:54 11/07/24 14:56 Temperature 96.7 F L Temperature Source Temporal Pulse Rate 81 Respiratory Rate 16 Respiratory Effort Normal Non-Labored Blood Pressure 124/100 H Blood Pressure Mean 108 Pulse Ox 99 Oxygen Delivery Method Room Air Room Air 11/07/24 15:45 11/07/24 16:00 11/07/24 16:30 Temperature Temperature Source Pulse Rate 68 75 62 Respiratory Rate 14 12 14 Respiratory Effort Blood Pressure 124/93 H 127/90 H 124/89 H Blood Pressure Mean 104 103 100 Pulse Ox 98 100 99 Oxygen Delivery Method 11/07/24 17:00 Temperature Temperature Source Pulse Rate 67 Respiratory Rate 15 Respiratory Effort Blood Pressure 129/92 H Blood Pressure Mean 103 Pulse Ox 98 Oxygen Delivery Method MDM MDM MDM Narrative Medical decision making narrative: Patient is a 29-year-old female who presented to the emergency department chief complaint of chest pain. On the differential diagnose includes but not limited to anxiety, panic attack, ACS, spontaneous coronary artery dissection, migraine headache. Once workup is obtain (more content not included)... Normal [facility] Eosinophil percentageOrdered By: Rj Jo on 11-07-2024 Eosinophils/100 WBC (Bld) 0.2 % Normal 0-5 [facility] Comment on above: Performed By: #### L 500.2500, L100.0100, L700.6800, L501.4021, L501.9520 #### [facility] [address] [place], [place], [id number] Erythrocyte distribution wid th ratioOrdered By: Rj Jo on 11-07-2024 Erythrocyte distribution width (RBC) [Ratio] 12.0 % Normal 11.6-14.8 [facility] Comment on above: Performed By: #### L 500.2500, L100.0100, L700.6800, L501.4021, L501.9520 #### [facility] [address] [place], [place], [id number] Erythrocyte distribution wid th standard deviationOrdered By: Rj Jo on 11-07-2024 Erythrocyte distribution width (RBC) [Ratio] 39.5 fl 35.1-43.9 [facility] Glomerular filtration rate ( GFR) estimation/1.73 sq m using serum, plasma, or whole bOrdered By: Rj Jo on 11-07-2024 GFR/1.73 sq M.predicted among non-blacks MDRD (S/P/Bld) [Vol rate/Area] 122 mL/min/{1.73_m2} Normal >60 [facility] Comment on above: mL/min/1.73m2 CKD-EP I Creatinine Equation (2020) Result Comment: mL/m in/1.73m2 CKD-EPI Creatinine Equation (2020) Performed By: #### L 500.2500, L100.0100, L700.6800, L501.4021, L501.9520 #### [facility] [address] [place], [place], [id number] Hemoglobin measurementOrdere d By: Rj Jo on 11-07-2024 Hemoglobin (Bld) [Mass/Vol] 14.4 g/dL Normal 12.0-15.0 [facility] Comment on above: Performed By: #### L 500.2500, L100.0100, L700.6800, L501.4021, L501.9520 #### [facility] [address] [place], [address] Immature granulocytes/100 WB C Auto (Bld)Ordered By: Rj Jo on 11-07-2024 Immature granulocytes/100 WBC (Bld) 0.400 % 0.0-0.9 [facility] Comment on above: IG% - Immature Granu locytes (promyelocytes, myelocytes and metamyelocytes) > 1% indicates that a LEFT SHIFT is Present. L499.0042on 11-07-2024 Trop T High Sen < 6 Normal <=14 [facility] Comment on above: Performed By: #### L 499.0042 #### [facility] [address] [place], [address] L499.0043on 11-07-2024 Trop T High Sen Normal <=14 [facility] Comment on above: Result Comment: Canc elled via OM: Order cancelled - Patient discharged Performed By: #### L 499.0043 #### [facility] [address] [place], [address] L501.4021on 11-07-2024 Trop T High Sen < 6 Normal <=14 [facility] Comment on above: Performed By: #### L 500.2500, L100.0100, L700.6800, L501.4021, L501.9520 #### [facility] [address] [place], [address] MCV (mean corpuscular volume ) determinationOrdered By: Rj Jo on 11-07-2024 MCV (RBC) [Entitic vol] 90.1 fL Normal 81-99 [facility] Comment on above: Performed By: #### L 500.2500, L100.0100, L700.6800, L501.4021, L501.9520 #### [facility] [address] [place], [address] Mean corpuscular hemoglobin (MCH) determinationOrdered By: Rj Jo on 11-07-2024 MCH (RBC) [Entitic mass] 31.8 pg Normal 27.0-32.0 [facility] Comment on above: Performed By: #### L 500.2500, L100.0100, L700.6800, L501.4021, L501.9520 #### [facility] [address] [place], [place], [id number] Mean corpuscular hemoglobin concentration (MCHC) determinationOrdered By: Rj Jo on 11-07-2024 MCHC (RBC) [Mass/Vol] 35.3 g/dL Normal 32-36 [facility] Comment on above: Performed By: #### L 500.2500, L100.0100, L700.6800, L501.4021, L501.9520 #### [facility] [address] [facility] [place], [address] Mean platelet volume determi nationOrdered By: Rj Jo on 11-07-2024 Platelet mean volume (Bld) [Entitic vol] 10.7 fL Normal 6.2-12.0 [facility] Comment on above: Performed By: #### L 500.2500, L100.0100, L700.6800, L501.4021, L501.9520 #### [facility] [address] [place], [place], [id number] Monocyte percentageOrdered B y: Rj Jo on 11-07-2024 Monocytes/100 WBC (Bld) 8.5 % Normal 0-10 [facility] Comment on above: Performed By: #### L 500.2500, L100.0100, L700.6800, L501.4021, L501.9520 #### [facility] [address] [place], [place], [phone] Neutrophil percentageOrdered By: Rj Jo on 11-07-2024 Neutrophils/100 WBC (Bld) 70.9 % High 47-70 [facility] Comment on above: Performed By: #### L 500.2500, L100.0100, L700.6800, L501.4021, L501.9520 #### [facility] [address] [place], [address] Nucleated red blood cell per centageOrdered By: Rj Jo on 11-07-2024 Nucleated RBC/100 WBC (Bld) [Ratio] 0 % 0-5 [facility] POC [facility] Chloride [Moles/Vol] 102 mmol/L Normal 98-108 [facility] Comment on above: Order Comment: [facility] Laboratory Services has implemented the eGFR calculation approach that does not have a coefficient for race that conforms to the NKF-ASN Task Force Recommendations. CO2 [Moles/Vol] 27 mmol/L Normal 21-32 [facility] Comment on above: Order Comment: [facility] has implemented the eGFR calculation approach that does not have a coefficient for race that conforms to the NKF-ASN Task Force Recommendations. Creatinine [Mass/Vol] 0.60 mg/dL Normal 0.40-1.10 [facility] Comment on above: Order Comment: [facility] Services has implemented the eGFR calculation approach that does not have a coefficient for race that conforms to the NKF-ASN Task Force Recommendations. Glucose [Mass/Vol] 113 mg/dL High 65-99 [facility] Comment on above: Order Comment: [facility] Services has implemented the eGFR calculation approach that does not have a coefficient for race that conforms to the NKF-ASN Task Force Recommendations. POC GFR 124 mL/min/1.73 m2 Normal >=60 [facility] Comment on above: Order Comment: [facility] Services has implemented the eGFR calculation approach that does not have a coefficient for race that conforms to the NKF-ASN Task Force Recommendations. Result Comment: Xavier mated GFR was calculated using the 2020 CKD-EPI creatinine equation. POC IONIZED CALCIUM 4.6 mg/dL Normal 4.5-5.3 [facility] Comment on above: Order Comment: [facility] Services has implemented the eGFR calculation approach that does not have a coefficient for race that conforms to the NKF-ASN Task Force Recommendations. Potassium [Moles/Vol] 3.9 mmol/L Normal 3.5-5.1 [facility] Comment on above: Order Comment: [facility] has implemented the eGFR calculation approach that does not have a coefficient for race that conforms to the NKF-ASN Task Force Recommendations. Sodium [Moles/Vol] 142 mmol/L Normal 135-145 [facility] Comment on above: Order Comment: [facility] has implemented the eGFR calculation approach that does not have a coefficient for race that conforms to the NKF-ASN Task Force Recommendations. Urea nitrogen [Mass/Vol] 7 mg/dL Low 8-25 [facility] Comment on above: Order Comment: [facility] has implemented the eGFR calculation approach that does not have a coefficient for race that conforms to the NKF-ASN Task Force Recommendations. POC CBC AND DIFFERENTIALon 0 11-07-2024 BASOPHILS ABSOLUTE COUNT 0.02 K/mcL Normal 0.00-0.30 [facility] Eosinophils (Bld) [#/Vol] 0.06 10*3/uL Normal 0.00-0.50 [facility] Eosinophils/100 WBC (Bld) 1.4 % Normal [facility] Hematocrit (Bld) [Volume fraction] 40.5 % Normal 36.0-46.0 [facility] Hemoglobin (Bld) [Mass/Vol] 14.6 g/dL Normal 12.0-16.0 [facility] IG ABSOLUTE 0.00 K/mcL Normal 0.00-0.30 [facility] IG PERCENT 0.00 % Normal [facility] Comment on above: Result Comment: The IG parameter is the percentage of metamyelocytes, myelocytes and promyelocytes. An immature granulocyte count (IG) of 1% or more suggests the possibility of infection, an IG count of 3% is very likely related to an infection. Lymphocytes (Bld) [#/Vol] 1.03 10*3/uL Normal 0.90-4.00 [facility] Lymphocytes/100 WBC (Bld) 24.0 % Normal [facility] MCH (RBC) [Entitic mass] 32.7 pg Normal 26.0-34.0 [facility] MCV (RBC) [Entitic vol] 90.6 fL Normal 80.0-100.0 [facility] MEAN CORPUSCULAR HEMOGLOBIN CONC 36.0 g/dL Normal 31.0-37.0 [facility] Monocytes (Bld) [#/Vol] 0.51 10*3/uL Normal 0.30-0.90 [facility] Monocytes/100 WBC (Bld) 11.9 % Normal [facility] NEUTROPHILS ABSOLUTE COUNT 2.68 K/mcL Normal 1.70-7.00 [facility] Neutrophils/100 WBC (Bld) 62.2 % Normal [facility] Platelet mean volume (Bld) [Entitic vol] 10.4 fL Normal 9.4-12.4 [facility] Platelets (Bld) [#/Vol] 176 10*3/uL Normal 150-400 [facility] RBC (Bld) [#/Vol] 4.47 10*6/uL Normal 4.00-5.20 [facility] WBC (Bld) [#/Vol] 4.30 10*3/uL Low 4.50-11.00 [facility] POC D-DIMER [facility] POC D-DIMER 1840 ng/mL DDU High <350 [facility] Comment on above: Order Comment: [facility] has implemented the eGFR calculation approach that does not have a coefficient for race that conforms to the NKF-ASN Task Force Recommendations. POC TROPONIN I [facility] 2024 POC TROPONIN I < Normal <0.05 [facility] Platelet countOrdered By: Ron Jo on 11-07-2024 Platelets (Bld) [#/Vol] 205 10*3/uL Normal 150-450 [facility] Comment on above: Performed By: #### L 500.2500, L100.0100, L700.6800, L501.4021, L501.9520 #### [facility] [address] [place], [place], [id number] Potassium measurement (mass/ volume)Ordered By: Rj Jo on 11-07-2024 Potassium (Unsp spec) [Mass/Vol] 4.2 mmol/L 3.3-5.1 [facility] Comment on above: Hemolysis present, R esults could be affected. ,Serum,hCG Quali.on 11-07-2024 HCG, SERUM QUAL Negative Normal [facility] Comment on above: Performed By: #### L 500.2500, L100.0100, L700.6800, L501.4021, L501.9520 #### [facility] [address] [place], [address] Serum beta-hCG test, qualita tiveOrdered By: Rj Jo on 11-07-2024 Beta HCG ( test) Ql Negative [facility] Serum creatinine measurement (mass/volume)Ordered By: Rj Jo on 11-07-2024 Creatinine [Mass/Vol] 0.64 mg/dL Low 0.70-1.20 [facility] Comment on above: Performed By: #### L 500.2500, L100.0100, L700.6800, L501.4021, L501.9520 #### [facility] [address] [facility] [place], [address] Serum glucose measurement (m ass/volume)Ordered By: Rj Jo on 11-07-2024 Glucose [Mass/Vol] 96 mg/dL Normal 70-99 [facility] Comment on above: Performed By: #### L 500.2500, L100.0100, L700.6800, L501.4021, L501.9520 #### [facility] [address] [facility] [place], [address] Serum or plasma calcium jocelynn urement (mass/volume)Ordered By: Rj Jo on 11-07-2024 Calcium [Mass/Vol] 9.1 mg/dL Normal 7.6-11.0 [facility] Comment on above: Performed By: #### L 500.2500, L100.0100, L700.6800, L501.4021, L501.9520 #### [facility] [address] [facility] [place], [address] Serum or plasma urea nitroge n measurement (mass/volume)Ordered By: Rj Jo on 11-07-2024 Urea nitrogen [Mass/Vol] 8 mg/dL Normal 4-19 [facility] Comment on above: Performed By: #### L 500.2500, L100.0100, L700.6800, L501.4021, L501.9520 #### [facility] [address] [place], [place], [id number] Sodium levelOrdered By: Shawn Jo on 11-07-2024 Sodium [Moles/Vol] 135 mmol/L Normal 133-145 [facility] Comment on above: Performed By: #### L 500.2500, L100.0100, L700.6800, L501.4021, L501.9520 #### [facility] [address] [place], [place], [id number] TSH DL <= 0.005 mIU/L QnOrde red By: Rj Jo on 11-07-2024 TSH Qn 1.900 uIU/mL 0.300-4.200 [facility] Thyroid Stim Hormone (TSH)on 11-07-2024 TSH 1.900 uIU/mL Normal 0.300-4.200 [facility] Comment on above: Performed By: #### L 500.2500, L100.0100, L700.6800, L501.4021, L501.9520 #### [facility] [address] [place], [place], [id number] Troponin T.cardiac [Mass/vol ume] in Serum or Plasma by High sensitivity methodOrdered By: Rj Jo on 11-07-2024 Troponin T.cardiac High sensitivity method [Mass/Vol] < 6 ng/L <14 [facility] White blood cell (WBC) count Ordered By: Rj Jo on 11-07-2024 WBC (Bld) [#/Vol] 5.7 10*3/uL Normal 4.4-11.0 [facility] Comment on above: Performed By: #### L 500.2500, L100.0100, L700.6800, L501.4021, L501.9520 #### [facility] [address] [place], [address] ECHOon 10-30-2024 Echocardiography Echocardiography Report: Transthoracic Echo [facility] Date of service: 10/30/2024 7:56:01 AM [facility] Ordering physician: MUNIR ALLISON Exam indication: Chest Pain Technologist: Jasvir Montgomery Interpreting physician: Mark Lau MD PATIENT: Name: MS. ANGELITA MARLEY : 1995 Age: 29 years Gender: F Primary rhythm: sinus. Height: 157.50 cm BSA: 1.78 m Weight: 72.50 kg BMI: 29.2 kg/m Heart rate 50 bpm Color Doppler was utilized to interrogate the cardiac valves assessed and spectral Doppler was utilized to determine the flow velocities and pressure gradients reported in this exam. Myocardial strain analysis was performed in this exam to aid in the assessment of cardiac function. MEASUREMENTS: Value Indexed Normal Max aortic dimension 3.0 cm Ao < 3.8 Left atrial volume 62 ml (biplane A-L) 35 ml/m oDreen <= 34 LV ID (diastole) 3.9 cm (2D) 2.18 cm/m LV ID (systole) 3.3 cm (2D) 1.83 cm/m IVS, leaflet tips 0.8 cm (2D) Posterior wall thickness 1.0 cm (2D) Left ventricular mass 105 g (2D) 59 g/m Global peak long strain -17.7 % LV stroke volume 50 ml (2D biplane) LV end diastolic volume 90 ml (2D biplane) 50.7 ml/m 29<=EDVi<62 LV end systolic volume 40 ml (2D biplane) 22.5 ml/m Ejection Fraction 56 % (2D biplane) EF > 54 FINDINGS: LEFT VENTRICLE The left ventricle is normal in size. Left ventricular systolic function is normal globally. Global LV myocardial strain is normal. Normal left ventricular diastolic function. Wall Motion: All scored segments are normal. RIGHT VENTRICLE The right ventricle is normal in size. Right ventricular systolic function is normal. Estimated right ventricular systolic pressure is 19 mmHg consistent with normal pulmonary artery pressures. Estimated right atrial pressure is 3 mmHg based on IVC assessment. LEFT ATRIUM The left atrial cavity is mildly dilated. Pulmonary Veins: The pulmonary venous pattern showed blunted systolic flow. RIGHT ATRIUM The right atrial cavity is normal in size. Inferior Vena Cava: The inferior vena cava appears normal measuring 1.8 cm. The vessel decreases greater than 50 percent with inspiration. MITRAL VALVE The mitral valve leaflets are structurally normal. There is trace mitral valve regurgitation. The pressure half time is 45 msec. The peak mitral E/A ratio is 1.31. The mitral flow deceleration time is 156 msec. TRICUSPID VALVE The tricuspid valve leaflets are structurally normal. There is trace tricuspid valve regurgitation. AORTIC VALVE The aortic valve cusps are structurally normal. There is trace aortic valve regurgitation. Tricuspid aortic valve. PULMONIC VALVE The pulmonic valve cusps are structurally normal. There is trace pulmonic valve regurgitation. AORTA The visualized aorta is normal in size. Measurements - Sinus: 3.0 cm. Mid ascending aorta 2.8 cm. Distal ascending aorta 2.9 cm. Mid arch 2.8 cm. PULMONARY ARTERIES The pulmonary arteries are normal. INTERATRIAL SEPTUM The interatrial septum is normal. There is no evidence of intracardiac shunting as detected by Doppler. INTERVENTRICULAR SEPTUM The interventricular septum is normal. PERICARDIUM The pericardium is normal. CORONARY ARTERIES The coronary arteries are unseen or not interrogated. CONCLUSIONS: - Exam indication: Chest Pain - The left ventricle is normal in size. Left ventricular systolic function is normal. EF = 56 5% (2D biplane) Normal left ventricular diastolic function. GLS= -17.7% Normal. - The right ventricle is normal in size. Right ventricular systolic function is normal. - The left atrial cavity is mildly dilated. - There are no significant valvular abnormalities. - The patient has not had a prior [facility] echocardiographic exam for comparison. * * * Final * * * [facility] [email or web address] Medical Image : [id number]. [id number] DynamicsSISUID Normal [facility] CNOVon 10-16-2024 CNOV Office Visit (FAMPWS) ANGELITA MARLEY ([id number]) 1995 F Date Time Provider Department 10/16/24 10:00 AM MUNIR ALLISON During your visit today, we recorded the following information about you: Pulse Respiration Blood pressure Weight 70/minute 16/minute 118/70 72.5 kg Munir Allison MD 10/16/2024 11:38 AM Signed Chief Complaint Patient presents with: ED Follow-up: [facility]-Chest pains. HPI Angelita Marley is a 29 year old female who presents here today for ER Follow Up. Pt was at [facility] ER in [place] on 08/30/24 with ches pains. Pt presented to [facility] ER again on 10/11/24 for chest pains. Cardiac work up each time was normal. Was not treated with any medications. Was referred to a Break Up Worker but was told when she called that Primary needed to refer. Would like to stay within [facility] for Cardio. She is told when at ER that she is having anxiety attacks but pt does not feel that is what it is. She gets sharp shooting pains in the chest several times a week that can last a few minutes and at times will have heaviness and pressure to middle of chest. She does get both SOB and dizziness when the sx are severe. No nausea or vomiting. She states her arms get heavy feeling or numb. No pain in the jaw. Family Hx of heart disease and heart attack, Uncle passed under the age of 50 from heart attack. No symptoms with exercise, no exercise limitation 08/30/24 Chief Complaint Patient presents with Chest Pain 29-year-old female presents for chest pain, patient asymptomatic and while sitting down, left-sided pain, no associated shortness of breath nausea emesis, no fevers, no cough Medical Decision Making Patient presents for chest pain on arrival episode, no acute distress, differentials include but not limited to atypical ACS, PE, pneumonia, pneumothorax. EKG was sinus no acute dysrhythmias, labs with no leukocytosis or electrolyte function, negative D-dimer, chest x-ray grossly unremarkable, discharged home supportive measures and outpatient follow-up, advised signs symptoms when to return The patient has been informed that they may have pre-hypertension or hypertension based on a blood pressure reading in the Emergency Department. I recommend that the patient call the primary care provider listed on their discharge instructions or a physician of their choice as soon as possible to arrange follow-up in the next 4 weeks for further evaluation of possible pre-hypertension or hypertension. Depression/CARO/Insom joe: Sleeping well with Trazodone 50 mg daily and feels her anxiety and depression are doing well on the Prozac 20 mg daily. Does not do any counseling. Complains of migraines and headaches a lot, occurring 3-4 x a week. She states weather changes trigger them. Does get nausea, no vomiting. Has light and noise sensitivity. She typically will take Motrin, if bad enough will take Benadryl and sleep it off. She does push through work when she has them, will leave early when able. Past medical history, appointments, medications, allergies reviewed. Previous Medical History PAST MEDICAL HISTORY Diagnosis Date anxiety Asthma (HCC) sports induced. No attacks since age 16 depression Previous Surgical History PAST SURGICAL HISTORY Procedure Laterality Date INSERTION OF IUD 07/15/2020 Mirena PAST SURGICAL HISTORY OF wisdom teeth and root canal PAST SURGICAL HISTORY OF Right 03/09/2023 Heel spur removed and tendon cut for plantar fasciitis Family History FAMILY HISTORY Problem Relation Age of Onset Asthma Mother other (Other tachycardia) Mother other (Other, hernia surgery) Father other (Other irregular heart rate) Father No Known Problems Sister Asthma Sister No Known Problems Brother Asthma Brother Cancer Maternal Grandmother skin cancer No Known Problems Maternal Grandfather Heart Paternal Grandmother other (benign tumor of ear) Paternal Grandmother No Known Problems Paternal Grandfather No Known Problems Son Heart Attack Maternal Uncle 37 Heart Attack Maternal Uncle Patient Allergies ALLERGIES Allergen Reactions Amoxicillin Unknown When she was a child Dicyclomine Intolerance Patient reports causes migraines Seasonal Allergies Itching Current Medications Current Outpatient Medications on File Prior to Visit Medication Sig traZODone (DESYREL) 50 mg tablet Take 1 tablet by mouth daily at bedtime. cetirizine (ZYRTEC) 10 mg tablet Take 10 mg by mouth as needed. fluticasone (FLONASE ALLERGY RELIEF) 50 mcg/actuation nasal spray Use 1 [place] in each nostril two times a day. FLUoxetine (PROZAC) 20 mg capsule Take 1 capsule by mouth once daily. meloxicam (MOBIC) 15 mg tablet Take 15 mg by mouth once daily. diphenhydramine HCl (BENADRYL ORAL) Take by mouth. No current facility-administere d medication (more content not included)... Normal [facility] ED Prov Noteon 10-11-2024 ED Prov Note ED PROVIDER NOTE [facility] NAME: Angelita Marley AGE: 29 y.o. : 1995 VISIT DATE: 10/11/2024 CSN: [id number] PCP: No, Physician Chief Complaint Patient presents with Chest Pain Patient is a 29-year-old female with a past medical history depression anxiety and asthma who presents today for concern of chest pain. Patient states she has a history of anxiety and takes medication. Patient states she has had periods of intermittent chest discomfort and heart palpitations which are typically worse at night and when she is not active. Patient denies any exertional symptoms. Patient has a history of DVT/PE, fever, lightheadedness, dizziness or syncope. Patient admits to a mild nonproductive cough for the last week but states her cough has been improving. Patient states her symptoms occurred today while she was at work at 8 AM. Patient denies any previous history of sudden cardiac or early AK. Patient states she is to follow-up with cardiology for an echo. Patient and endorses an increase in life stressors Past Medical History: Diagnosis Date Anxiety Asthma as a child. exercise induced. Depression Past Surgical History: Procedure Laterality Date HEEL SPUR RESECTION Right 03/09/2023 Procedure: Plantar Fasciotomy with Heel spur resection - RIGHT foot.; Surgeon: Gio Richardson DPM; [place] [facility] Service: Podiatry WISDOM TOOTH EXTRACTION Family History Problem Relation Age of Onset No Known Problems Mother No Known Problems Father No Known Problems Sister No Known Problems Brother Social History [1] Previous Medications Medication Sig FLUoxetine (PROZAC) 20 MG capsule Take 1 (one) capsule (20 mg total) by mouth daily . busPIRone (BUSPAR) 10 MG tablet Take 1 (one) tablet (10 mg total) by mouth 3 (three) times a day . (Patient not taking: Reported on 09/29/2023 .) diphenhydramine HCl (UNISOM SLEEPGELS ORAL) Take by mouth PRN . escitalopram oxalate (LEXAPRO) 10 MG tablet Take 1 (one) tablet (10 mg total) by mouth daily . (Patient not taking: Reported on 09/29/2023 .) ibuprofen (ADVIL,MOTRIN) 800 MG tablet Take 1 (one) tablet (800 mg total) by mouth every 6 (six) hours as needed for pain . meloxicam (MOBIC) 15 MG tablet Take 1 (one) tablet (15 mg total) by mouth daily . meloxicam (MOBIC) 15 MG tablet Take 1 (one) tablet (15 mg total) by mouth daily . prochlorperazine (Compazine) 10 MG tablet Take 1 (one) tablet (10 mg total) by mouth every 6 (six) hours as needed for nausea . traZODone (DESYREL) 50 MG tablet Take 1 (one) tablet (50 mg total) by mouth every night at bedtime . UNABLE TO FIND OTC Allergy Medication PRN . Allergies[2] Review of Systems Constitutional: Negative for chills and fever. Eyes: Negative for pain. Respiratory: Positive for shortness of breath. Negative for cough and chest tightness. Cardiovascular: Positive for chest pain and palpitations. Gastrointestinal: Negative for abdominal pain, nausea and vomiting. Genitourinary: Negative for flank pain. Musculoskeletal: Negative for arthralgias and myalgias. Skin: Negative for rash. Neurological: Negative for dizziness, syncope, light-headedness and headaches. Psychiatric/Behavior al: Negative for agitation. The patient is nervous/anxious. All other systems reviewed and are negative. Patient Vitals for the past 24 hrs: BP Temp Temp src Pulse Resp SpO2 Height Weight 10/11/24 0918 (!) 131/93 97.8 degrees F (36.6 degrees C) Temporal 99 18 99 % 5' 2 72.6 kg (160 lb) Physical Exam Vitals and nursing note reviewed. Constitutional: Appearance: Normal appearance. HENT: Head: Normocephalic. Eyes: Pupils: Pupils are equal, round, and reactive to light. Cardiovascular: Rate and Rhythm: Normal rate and regular rhythm. Pulses: Normal pulses. Heart sounds: Normal heart sounds. Musculoskeletal: General: Normal range of motion. Cervical back: Normal range of motion. Pulmonary: Effort: Pulmonary effort is normal. Breath sounds: Normal breath sounds. No decreased breath sounds, wheezing, rhonchi or rales. Chest: Chest wall: No mass, tenderness or edema. Abdominal: General: There is no abdominal bruit. Palpations: Abdomen is soft. There is no hepatomegaly or mass. Skin: General: Skin is warm. Capillary Refill: Capillary refill takes less than 2 seconds. Neurological: General: No focal deficit present. Mental Status: She is alert. Psychiatric: Mood and Affect: Mood normal. Laboratory & Radiographic Imaging (if done): Results for orders placed or performed during the hospital encounter of 10/11/24 POC CBC and Differential Result Value Ref Range WBC 7.70 4.50 - 11.00 K/mcL RBC 4.63 4.00 - 5.20 M/mcL Hemoglobin 15.0 12.0 - 16.0 g/dL Hematocrit 43.0 36.0 - 46.0 % MCV 92.9 80.0 - 100.0 fL MCH 32.4 26.0 - 34.0 pg MCHC 34.9 31.0 - 37.0 g/dL RDW - CV 11.9 11.6 - 14.8 % Platelets (more content not included)... Normal [facility] POC BASIC METABOLIC PANEL - [facility] 10-11-2024 Chloride [Moles/Vol] 105 mmol/L Normal 98-108 [facility] Comment on above: Order Comment: [facility] has implemented the eGFR calculation approach that does not have a coefficient for race that conforms to the NKF-ASN Task Force Recommendations. CO2 [Moles/Vol] 24 mmol/L Normal 21-32 [facility] Comment on above: Order Comment: [facility] has implemented the eGFR calculation approach that does not have a coefficient for race that conforms to the NKF-ASN Task Force Recommendations. Creatinine [Mass/Vol] 0.60 mg/dL Normal 0.40-1.10 [facility] Comment on above: Order Comment: [facility] has implemented the eGFR calculation approach that does not have a coefficient for race that conforms to the NKF-ASN Task Force Recommendations. Glucose [Mass/Vol] 102 mg/dL High 65-99 [facility] Comment on above: Order Comment: [facility] has implemented the eGFR calculation approach that does not have a coefficient for race that conforms to the NKF-ASN Task Force Recommendations. POC GFR 124 mL/min/1.73 m2 Normal >=60 [facility] Comment on above: Order Comment: [facility] has implemented the eGFR calculation approach that does not have a coefficient for race that conforms to the NKF-ASN Task Force Recommendations. Result Comment: Xavier mated GFR was calculated using the 2020 CKD-EPI creatinine equation. POC IONIZED CALCIUM 4.6 mg/dL Normal 4.5-5.3 [facility] Comment on above: Order Comment: [facility] has implemented the eGFR calculation approach that does not have a coefficient for race that conforms to the NKF-ASN Task Force Recommendations. Potassium [Moles/Vol] 4.0 mmol/L Normal 3.5-5.1 [facility] Comment on above: Order Comment: [facility] has implemented the eGFR calculation approach that does not have a coefficient for race that conforms to the NKF-ASN Task Force Recommendations. Sodium [Moles/Vol] 137 mmol/L Normal 135-145 [facility] Comment on above: Order Comment: [facility] has implemented the eGFR calculation approach that does not have a coefficient for race that conforms to the NKF-ASN Task Force Recommendations. Urea nitrogen [Mass/Vol] 12 mg/dL Normal 8-25 [facility] Comment on above: Order Comment: [facility] has implemented the eGFR calculation approach that does not have a coefficient for race that conforms to the NKF-ASN Task Force Recommendations. POC CBC AND DIFFERENTIALon 0 - BASOPHILS ABSOLUTE COUNT 0.04 K/mcL Normal 0.00-0.30 [facility] Basophils/100 WBC (Bld) 0.5 % Normal G [facility] Eosinophils (Bld) [#/Vol] 0.16 10*3/uL Normal 0.00-0.50 [facility] Eosinophils/100 WBC (Bld) 2.1 % Normal [facility] Erythrocyte distribution width (RBC) [Ratio] 11.9 % Normal 11.6-14.8 [facility] Hematocrit (Bld) [Volume fraction] 43.0 % Normal 36.0-46.0 [facility] Hemoglobin (Bld) [Mass/Vol] 15.0 g/dL Normal 12.0-16.0 [facility] IG ABSOLUTE 0.03 K/mcL Normal 0.00-0.30 [facility] IG PERCENT 0.40 % Normal [facility] Comment on above: Result Comment: The IG parameter is the percentage of metamyelocytes, myelocytes and promyelocytes. An immature granulocyte count (IG) of 1% or more suggests the possibility of infection, an IG count of 3% is very likely related to an infection. Lymphocytes (Bld) [#/Vol] 2.81 10*3/uL Normal 0.90-4.00 [facility] Lymphocytes/100 WBC (Bld) 36.5 % Normal [facility] MCH (RBC) [Entitic mass] 32.4 pg Normal 26.0-34.0 [facility] MCV (RBC) [Entitic vol] 92.9 fL Normal 80.0-100.0 [facility] MEAN CORPUSCULAR HEMOGLOBIN CONC 34.9 g/dL Normal 31.0-37.0 [facility] Monocytes (Bld) [#/Vol] 0.61 10*3/uL Normal 0.30-0.90 [facility] Monocytes/100 WBC (Bld) 7.9 % Normal [facility] NEUTROPHILS ABSOLUTE COUNT 4.05 K/mcL Normal 1.70-7.00 [facility] Neutrophils/100 WBC (Bld) 52.6 % Normal [facility] Platelet mean volume (Bld) [Entitic vol] 10.1 fL Normal 9.4-12.4 [facility] Platelets (Bld) [#/Vol] 284 10*3/uL Normal 150-400 [facility] RBC (Bld) [#/Vol] 4.63 10*6/uL Normal 4.00-5.20 [facility] WBC (Bld) [#/Vol] 7.70 10*3/uL Normal 4.50-11.00 [facility] POC TROPONIN I Bipin 2024 POC TROPONIN I < Normal <0.05 [facility] XR CHEST PA/APon 10-11-2024 XR CHEST PA/AP EXAMINATION: XR CHEST PA/AP 10/11/2024 9:33 am HISTORY: ORDERING SYSTEM PROVIDED HISTORY: chest pain, TECHNOLOGIST PROVIDED HISTORY: Illness/Other Reason for exam: Chest Pain Cancer History: no Surgery, RadiationHistory: no Encounter Type: Initial Additional signs and symptoms: na ORDERING SYSTEM PROVIDED DIAGNOSIS CODES: COMPARISON: 08/30/2024 FINDINGS: LUNGS: No significant pulmonary parenchymal abnormalities. VASCULATURE: No increased pulmonary vasculature. PLEURA: No pneumothorax, effusion, or pleural thickening. CARDIAC: No cardiomegaly or cardiac silhouette abnormality. MEDIASTINUM: No visible mass or adenopathy. BONES: No fracture or visible bone lesion. OTHER: Negative. IMPRESSION: No acute cardiopulmonary process Workstation ID: [id number] Dictated by: DEEPTI DRUMMOND on TueOct 11, 2024 9:59:30 AM EDT Transcribed by: DEEPTI DRUMMOND on TueOct 11, 2024 9:59:30 AM EDT Finalized by: DEEPTI DRUMMOND on TueOct 11, 2024 9:59:30 AM EDT [facility] Comment on above: Order Comment: [facility] Laboratory Services has implemented the eGFR calculation approach that does not have a coefficient for race that conforms to the NKF-ASN Task Force Recommendations. No Panel Informationon 09-07 Radiology Study observation (narrative) Jorgito de la torre [facility] US ELBOW LTon 09-07-2024 US ELBOW LT * * *Final Report* * * DATE OF EXAM: Sep 07 2024 8:31AM [facility] 1133 - US ELBOW LT / PROCEDURE REASON: multiple diagnoses * * * * Physician Interpretation * * * * MSK_US LEFT MEDIAL ELBOW ULTRASOUND: CLINICAL INFORMATION: Bilateral medial elbow pain, tingling to the fourth and fifth fingers. Right greater than left. TECHNIQUE: Millan-scale real-time ultrasound of the medial elbow with dynamic imaging and power Doppler examination was performed. Images were saved to the permanent image archive. v1-18. COMPARISON: EMG 02/13/2024. FINDINGS: COMMON FLEXOR TENDON: Tendinosis: None. Tearing: None. Power Doppler Examination: Normal. Fascia: Normal in thickness. Medial Epicondyle: No osseous hypertrophic changes. ULNAR COLLATERAL LIGAMENT: Intact. Normal stress/dynamic examination. ULNAR NERVE: Normal appearance. No abrupt caliber change. No subluxation seen on dynamic examination. MEDIAL ELBOW JOINT SPACE: Trace physiologic joint fluid. IMPRESSION: Unremarkable ultrasound left medial elbow. Funeral Pre Arrangement Specialist: ERIC Transcribe Date/Time: Sep 07 2024 8:36A Dictated by : DANDY DALY MD This examination was interpreted and the report reviewed and electronically signed by: DANDY DALY MD on Sep 07 2024 9:52AM EST [id number] CN Normal [facility] US ELBOW RTon 09-07-2024 US ELBOW RT * * *Final Report* * * DATE OF EXAM: Sep 07 2024 8:10AM [facility] 1134 - US ELBOW RT / PROCEDURE REASON: multiple diagnoses * * * * Physician Interpretation * * * * MSK_US RIGHT MEDIAL ELBOW ULTRASOUND: CLINICAL INFORMATION: Bilateral medial elbow pain, tingling to the fourth and fifth fingers. Right greater than left. TECHNIQUE: Millan-scale real-time ultrasound of the medial elbow with dynamic imaging and power Doppler examination was performed. Images were saved to the permanent image archive. [id number]. COMPARISON: EMG 02/13/2024. FINDINGS: COMMON FLEXOR TENDON: Tendinosis: None. Tearing: None. Power Doppler Examination: Normal. Fascia: Normal in thickness. Medial Epicondyle: No osseous hypertrophic changes. ULNAR COLLATERAL LIGAMENT: Intact. Normal stress/dynamic examination. ULNAR NERVE: Normal appearance. No abrupt caliber change. No subluxation seen on dynamic examination. MEDIAL ELBOW JOINT SPACE: Trace physiologic joint fluid. IMPRESSION: UNREMARKABLE ULTRASOUND RIGHT MEDIAL ELBOW [facility]eral Pre Ar[facility]ement Special[facility] Transcribe Date/Time: Sep 07 2024 8:32A Dictated by : DANDY DALY MD This examination was interpreted and the report reviewed and electronically signed by: DANDY DALY MD on Sep 07 2024 9:50AM EST [id number] CN Normal [facility] US Upper extremity - lefton 09-07-2024 IMPRESSION: Unremarkable ultrasound left medial elbow. Funeral Pre Arrangement Specialist: [facility] Transcribe Date/Time: Sep 07 2024 8:36A Dictated by : DANDY DALY MD This examination was interpreted and the report reviewed and electronically signed by: DANDY DALY MD on Sep 07 2024 9:52AM EST DIVISION OF RADIOLOGY * * *Final Report* * * DATE OF EXAM: Sep 07 2024 8:31AM [facility]3 - US ELBOW LT / PROCEDURE REASON: multiple diagnoses * * * * Physician Interpretation * * * * MSK_US LEFT MEDIAL ELBOW ULTRASOUND: CLINICAL INFORMATION: Bilateral medial elbow pain, tingling to the fourth and fifth fingers. Right greater than left. TECHNIQUE: Millan-scale real-time ultrasound of the medial elbow with dynamic imaging and power Doppler examination was performed. Images were saved to the permanent image archive. v1-18. COMPARISON: EMG 02/13/2024. FINDINGS: COMMON FLEXOR TENDON: Tendinosis: None. Tearing: None. Power Doppler Examination: Normal. Fascia: Normal in thickness. Medial Epicondyle: No osseous hypertrophic changes. ULNAR COLLATERAL LIGAMENT: Intact. Normal stress/dynamic examination. ULNAR NERVE: Normal appearance. No abrupt caliber change. No subluxation seen on dynamic examination. MEDIAL ELBOW JOINT SPACE: Trace physiologic joint fluid. DIVISION OF RADIOLOGY Provider, [facility] [place] - 09/07/2024 * * *Final Report* * * DATE OF EXAM: Sep 07 2024 8:31AM [facility]3 - US ELBOW LT / PROCEDURE REASON: multiple diagnoses * * * * Physician Interpretation * * * * MSK_US LEFT MEDIAL ELBOW ULTRASOUND: CLINICAL INFORMATION: Bilateral medial elbow pain, tingling to the fourth and fifth fingers. Right greater than left. TECHNIQUE: Millan-scale real-time ultrasound of the medial elbow with dynamic imaging and power Doppler examination was performed. Images were saved to the permanent image archive. v1-18. COMPARISON: EMG 02/13/2024. FINDINGS: COMMON FLEXOR TENDON: Tendinosis: None. Tearing: None. Power Doppler Examination: Normal. Fascia: Normal in thickness. Medial Epicondyle: No osseous hypertrophic changes. ULNAR COLLATERAL LIGAMENT: Intact. Normal stress/dynamic examination. ULNAR NERVE: Normal appearance. No abrupt caliber change. No subluxation seen on dynamic examination. MEDIAL ELBOW JOINT SPACE: Trace physiologic joint fluid. IMPRESSION IMPRESSION: Unremarkable ultrasound left medial elbow. Funeral Pre Arrangement Specialist: ERIC Transcribe Date/Time: Sep 07 2024 8:36A Dictated by : DANDY DALY MD This examination was interpreted and the report reviewed and electronically signed by: DANDY DALY MD on Sep 07 2024 9:52AM [facility] Upper extremity - righton 09-07-2024 IMPRESSION: UNREMARKABLE ULTRASOUND RIGHT MEDIAL ELBOW Funeral Pre Arrangement Specialist: ERIC Transcribe Date/Time: Sep 07 2024 8:32A Dictated by : DANDY DALY MD This examination was interpreted and the report reviewed and electronically signed by: DANDY DALY MD on Sep 07 2024 9:50AM [facility] DIVISION OF RADIOLOGY * * *Final Report* * * DATE OF EXAM: Sep 07 2024 8:10AM [facility] 1134 - US ELBOW RT / PROCEDURE REASON: multiple diagnoses * * * * Physician Interpretation * * * * MSK_US RIGHT MEDIAL ELBOW ULTRASOUND: CLINICAL INFORMATION: Bilateral medial elbow pain, tingling to the fourth and fifth fingers. Right greater than left. TECHNIQUE: Millan-scale real-time ultrasound of the medial elbow with dynamic imaging and power Doppler examination was performed. Images were saved to the permanent image archive. v1-18. COMPARISON: EMG 02/13/2024. FINDINGS: COMMON FLEXOR TENDON: Tendinosis: None. Tearing: None. Power Doppler Examination: Normal. Fascia: Normal in thickness. Medial Epicondyle: No osseous hypertrophic changes. ULNAR COLLATERAL LIGAMENT: Intact. Normal stress/dynamic examination. ULNAR NERVE: Normal appearance. No abrupt caliber change. No subluxation seen on dynamic examination. MEDIAL ELBOW JOINT SPACE: Trace physiologic joint fluid. DIVISION OF RADIOLOGY Provider, [facility] [place] - 09/07/2024 * * *Final Report* * * DATE OF EXAM: Sep 07 2024 8:10AM [facility] 1134 - US ELBOW RT / PROCEDURE REASON: multiple diagnoses * * * * Physician Interpretation * * * * MSK_US RIGHT MEDIAL ELBOW ULTRASOUND: CLINICAL INFORMATION: Bilateral medial elbow pain, tingling to the fourth and fifth fingers. Right greater than left. TECHNIQUE: Millan-scale real-time ultrasound of the medial elbow with dynamic imaging and power Doppler examination was performed. Images were saved to the permanent image archive. v1-18. COMPARISON: EMG 02/13/2024. FINDINGS: COMMON FLEXOR TENDON: Tendinosis: None. Tearing: None. Power Doppler Examination: Normal. Fascia: Normal in thickness. Medial Epicondyle: No osseous hypertrophic changes. ULNAR COLLATERAL LIGAMENT: Intact. Normal stress/dynamic examination. ULNAR NERVE: Normal appearance. No abrupt caliber change. No subluxation seen on dynamic examination. MEDIAL ELBOW JOINT SPACE: Trace physiologic joint fluid. IMPRESSION IMPRESSION: UNREMARKABLE ULTRASOUND RIGHT MEDIAL ELBOW Funeral Pre Arrangement Specialist: ERIC Transcribe Date/Time: Sep 07 2024 8:32A Dictated by : DANDY DALY MD This examination was interpreted and the report reviewed and electronically signed by: DANDY DALY MD on Sep 07 2024 9:50AM EST [facility] US Upper extremity - rightOr dered By: [facility] Provider on 09-07-2024 [facility] ED Prov Noteon 08-30-2024 ED Prov Note ED PROVIDER NOTE [facility] NAME: Angelita Marley AGE: 29 y.o. : 1995 VISIT DATE: 08/30/2024 CSN: [id number] PCP: Kenzie Bowen CNP Chief Complaint Patient presents with Chest Pain 29-year-old female presents for chest pain, patient asymptomatic and while sitting down, left-sided pain, no associated shortness of breath nausea emesis, no fevers, no cough Past Medical History: Diagnosis Date Anxiety Asthma as a child. exercise induced. Depression Past Surgical History: Procedure Laterality Date HEEL SPUR RESECTION Right 03/09/2023 Procedure: Plantar Fasciotomy with Heel spur resection - RIGHT foot.; Surgeon: Gio Richardson DPM; [place] [facility]; Service: Podiatry WISDOM TOOTH EXTRACTION Family History Problem Relation Age of Onset No Known Problems Mother No Known Problems Father No Known Problems Sister No Known Problems Brother Social History [1] Previous Medications Medication Sig busPIRone (BUSPAR) 10 MG tablet Take 1 (one) tablet (10 mg total) by mouth 3 (three) times a day . (Patient not taking: Reported on 09/29/2023 .) diphenhydramine HCl (UNISOM SLEEPGELS ORAL) Take by mouth PRN . escitalopram oxalate (LEXAPRO) 10 MG tablet Take 1 (one) tablet (10 mg total) by mouth daily . (Patient not taking: Reported on 09/29/2023 .) ibuprofen (ADVIL,MOTRIN) 800 MG tablet Take 1 (one) tablet (800 mg total) by mouth every 6 (six) hours as needed for pain . meloxicam (MOBIC) 15 MG tablet Take 1 (one) tablet (15 mg total) by mouth daily . meloxicam (MOBIC) 15 MG tablet Take 1 (one) tablet (15 mg total) by mouth daily . prochlorperazine (Compazine) 10 MG tablet Take 1 (one) tablet (10 mg total) by mouth every 6 (six) hours as needed for nausea . traZODone (DESYREL) 50 MG tablet Take 1 (one) tablet (50 mg total) by mouth every night at bedtime . UNABLE TO FIND OTC Allergy Medication PRN . Allergies[2] Review of Systems All other systems reviewed and are negative. Patient Vitals for the past 24 hrs: BP Temp Pulse Resp SpO2 Weight 08/30/242025 (!) 155/100 98.7 degrees F (37.1 degrees C) 81 16 100 % 72.6 kg (160 lb) Physical Exam Vitals and nursing note reviewed. Constitutional: Appearance: Normal appearance. HENT: Head: Normocephalic and atraumatic. Right Ear: External ear normal. Left Ear: External ear normal. Nose: Nose normal. Mouth/Throat: Mouth: Mucous membranes are moist. Pharynx: Oropharynx is clear. Eyes: Extraocular Movements: Extraocular movements intact. Conjunctiva/sclera: Conjunctivae normal. Pupils: Pupils are equal, round, and reactive to light. Cardiovascular: Rate and Rhythm: Normal rate and regular rhythm. Musculoskeletal: General: Normal range of motion. Cervical back: Normal range of motion and neck supple. Pulmonary: Effort: Pulmonary effort is normal. Breath sounds: Normal breath sounds. Abdominal: General: Abdomen is flat. Bowel sounds are normal. Palpations: Abdomen is soft. Neurological: General: No focal deficit present. Mental Status: She is alert and oriented to person, place, and time. Mental status is at baseline. Psychiatric: Mood and Affect: Mood normal. Thought Content: Thought content normal. Laboratory & Radiographic Imaging (if done): Results for orders placed or performed during the hospital encounter of 08/30/24 POC CBC and Differential Result Value Ref Range WBC 8.28 4.50 - 11.00 K/mcL RBC 4.31 4.00 - 5.20 M/mcL Hemoglobin 14.0 12.0 - 16.0 g/dL Hematocrit 39.6 36.0 - 46.0 % MCV 91.9 80.0 - 100.0 fL MCH 32.5 26.0 - 34.0 pg MCHC 35.4 31.0 - 37.0 g/dL RDW - CV 12.2 11.6 - 14.8 % Platelets 266 150 - 400 K/mcL MPV 11.4 9.4 - 12.4 fL Neutrophils 48.8 % Lymphocytes 42.1 % Monocytes 6.8 % Eosinophils 1.8 % Basophils 0.4 % IG Percent 0.10 % Neutrophils Abs 4.04 1.70 - 7.00 K/mcL Lymphocytes Abs 3.49 0.90 - 4.00 K/mcL Monocytes Abs 0.56 0.30 - 0.90 K/mcL Eosinophils Abs 0.15 0.00 - 0.50 K/mcL Basophils Abs 0.03 0.00 - 0.30 K/mcL IG Absolute 0.01 0.00 - 0.30 K/mcL POC Basic Metabolic Panel Result Value Ref Range Glucose 90 65 - 99 mg/dL BUN 11 8 - 25 mg/dL Creatinine 0.62 0.40 - 1.10 mg/dL GFR 123 >=60 mL/min/1.73 m2 Sodium 141 135 - 145 mmol/L Potassium 3.2 (L) 3.5 - 5.1 mmol/L Chloride 105 98 - 108 mmol/L TCO2 24 21 - 32 mmol/L Ionized Calcium 4.6 4.5 - 5.3 mg/dL POC , Urine Result Value Ref Range POC Preg Test, Urine Negative Negative POC Troponin I Result Value Ref Range Troponin I <0.05 <0.05 ng/mL XR Chest 1 View (Results Pending) EKG 12-lead Date/Time: 08/30/2024 8:56 PM Performed by: Apolonia Davis MD Authorized by: Apolonia Davis MD BPM: 72 Comments: Sinus rhythm, rate 72, normal axis, no STEMI Medical Decision Making Patient presents for chest pain on arrival episode, no acute distress, differentials include bu (more content not included)... Normal [facility] POC B-TYPE NATRIURETIC PEPTI DE (BNP) - [facility] 08-30-2024 POC B-TYPE NATRIURETIC PEPTIDE < Normal <100 [facility] POC BASIC METABOLIC PANEL - [facility] 08-30-2024 Chloride [Moles/Vol] 105 mmol/L Normal 98-108 [facility] Comment on above: Order Comment: [facility] Laboratory Services has implemented the eGFR calculation approach that does not have a coefficient for race that conforms to the NKF-ASN Task Force Recommendations. CO2 [Moles/Vol] 24 mmol/L Normal 21-32 [facility] Comment on above: Order Comment: [facility] has implemented the eGFR calculation approach that does not have a coefficient for race that conforms to the NKF-ASN Task Force Recommendations. Creatinine [Mass/Vol] 0.62 mg/dL Normal 0.40-1.10 [facility] Comment on above: Order Comment: [facility] Laboratory [facility] has implemented the eGFR calculation approach that does not have a coefficient for race that conforms to the NKF-ASN Task Force Recommendations. Glucose [Mass/Vol] 90 mg/dL Normal 65-99 [facility] Comment on above: Order Comment: [facility] has implemented the eGFR calculation approach that does not have a coefficient for race that conforms to the NKF-ASN Task Force Recommendations. POC GFR 123 mL/min/1.73 m2 Normal >=60 [facility] Comment on above: Order Comment: [facility] has implemented the eGFR calculation approach that does not have a coefficient for race that conforms to the NKF-ASN Task Force Recommendations. Result Comment: Xavier mated GFR was calculated using the 2020 CKD-EPI creatinine equation. POC IONIZED CALCIUM 4.6 mg/dL Normal 4.5-5.3 [facility] Comment on above: Order Comment: [facility] has implemented the eGFR calculation approach that does not have a coefficient for race that conforms to the NKF-ASN Task Force Recommendations. Potassium [Moles/Vol] 3.2 mmol/L Low 3.5-5.1 [facility] Comment on above: Order Comment: [facility] Laboratory [facility] has implemented the eGFR calculation approach that does not have a coefficient for race that conforms to the NKF-ASN Task Force Recommendations. Sodium [Moles/Vol] 141 mmol/L Normal 135-145 [facility] Comment on above: Order Comment: [facility] has implemented the eGFR calculation approach that does not have a coefficient for race that conforms to the NKF-ASN Task Force Recommendations. Urea nitrogen [Mass/Vol] 11 mg/dL Normal 8-25 [facility] Comment on above: Order Comment: [facility] has implemented the eGFR calculation approach that does not have a coefficient for race that conforms to the NKF-ASN Task Force Recommendations. POC CBC AND DIFFERENTIALon 0 08-30-2024 BASOPHILS ABSOLUTE COUNT 0.03 K/mcL Normal 0.00-0.30 [facility] Basophils/100 WBC (Bld) 0.4 % Normal [facility] Eosinophils (Bld) [#/Vol] 0.15 10*3/uL Normal 0.00-0.50 [facility] Eosinophils/100 WBC (Bld) 1.8 % Normal [facility] Erythrocyte distribution width (RBC) [Ratio] 12.2 % Normal 11.6-14.8 [facility] Hematocrit (Bld) [Volume fraction] 39.6 % Normal 36.0-46.0 [facility] Hemoglobin (Bld) [Mass/Vol] 14.0 g/dL Normal 12.0-16.0 [facility] IG ABSOLUTE 0.01 K/mcL Normal 0.00-0.30 [facility] IG PERCENT 0.10 % Normal [facility] Comment on above: Result Comment: The IG parameter is the percentage of metamyelocytes, myelocytes and promyelocytes. An immature granulocyte count (IG) of 1% or more suggests the possibility of infection, an IG count of 3% is very likely related to an infection. Lymphocytes (Bld) [#/Vol] 3.49 10*3/uL Normal 0.90-4.00 [facility] Lymphocytes/100 WBC (Bld) 42.1 % Normal [facility] MCH (RBC) [Entitic mass] 32.5 pg Normal 26.0-34.0 [facility] MCV (RBC) [Entitic vol] 91.9 fL Normal 80.0-100.0 [facility] MEAN CORPUSCULAR HEMOGLOBIN CONC 35.4 g/dL Normal 31.0-37.0 [facility] Monocytes (Bld) [#/Vol] 0.56 10*3/uL Normal 0.30-0.90 [facility] Monocytes/100 WBC (Bld) 6.8 % Normal [facility] NEUTROPHILS ABSOLUTE COUNT 4.04 K/mcL Normal 1.70-7.00 [facility] Neutrophils/100 WBC (Bld) 48.8 % Normal [facility] Platelet mean volume (Bld) [Entitic vol] 11.4 fL Normal 9.4-12.4 [facility] Platelets (Bld) [#/Vol] 266 10*3/uL Normal 150-400 [facility] RBC (Bld) [#/Vol] 4.31 10*6/uL Normal 4.00-5.20 [facility] WBC (Bld) [#/Vol] 8.28 10*3/uL Normal 4.50-11.00 [facility] POC D-DIMER [facility] POC D-DIMER 159 ng/mL DDU Normal <350 [facility] Comment on above: Order Comment: [facility] Services has implemented the eGFR calculation approach that does not have a coefficient for race that conforms to the NKF-ASN Task Force Recommendations. [facility] Beta HCG ( test) Ql (U) Negative Normal Negative [facility] Comment on above: Order Comment: [facility] has implemented the eGFR calculation approach that does not have a coefficient for race that conforms to the NKF-ASN Task Force Recommendations. POC PT-INR - [facility] 08-31-19 25 POC INR (SIG ELITE) 0.9 Normal 0.8-1.1 [facility] POC TROPONIN I [facility] 2024 POC TROPONIN I < Normal <0.05 [facility] XR CHEST PA/APon 08-30-2024 XR CHEST PA/AP EXAMINATION: XR CHEST PA/AP 08/30/2024 9:08 pm HISTORY: ORDERING SYSTEM PROVIDED HISTORY: chest pain, TECHNOLOGIST PROVIDED HISTORY: Illness/Other Reason for exam: chest pain Cancer History: no Surgery, RadiationHistory: no Encounter Type: Initial Additional signs and symptoms: chest pain ORDERING SYSTEM PROVIDED DIAGNOSIS CODES: R07.9 Chest pain, unspecified type COMPARISON: CTA of 09/26/2022 FINDINGS: EKG/telemetry leads overlie the thorax. The lungs are clear. No pneumothorax. The pulmonary vascularity, cardiac silhouette, and mediastinal contours are normal. No acute fracture is seen. IMPRESSION: Normal portable chest. Workstation ID: [id number] Dictated by: PEEWEE SAL on TueAugust 30, 2024 9:16:36 PM EDT Transcribed by: PEEWEE SAL on TueAugust 30, 2024 9:16:36 PM EDT Finalized by: PEEWEE SAL on TueAugust 30, 2024 9:16:36 PM EDT [facility] Comment on above: Order Comment: Injur y/Trauma or Illness?:Illness/Other How long have you had these symptoms (acute/chronic)?:Acute Reason for exam?:chest pain History of cancer?:no Surgeries, chemotherapy, or radiation?:no Type of Exam?:Initial Additional signs and symptoms?:chest pain CNOVon 07-27-2024 CNOV Office Visit (FAMPWS) ANGELITA MARLEY ([id number]) 1995 F Date Time Provider Department 07/27/24 8:40 AM [facility] During your visit today, we recorded the following information about you: Pulse Respiration Blood pressure Weight 71/minute 16/minute 118/82 72.9 kg Last Period 07/21/24 Kenzie Bowen APRN.[facility] 07/27/2024 9:08 AM Signed This is a 29 year old female who presents today with: Patient presents with: Acute Visit: Ear fullness, itching, wrist pain, and tailbone pain HISTORY OF PRESENT ILLNESS: Angelita Marley is a 29 year old female. Patient presents with: Acute Visit: Ear fullness, itching, wrist pain, and tailbone pain Here in the office for bilateral ear pain and itching. Symptoms started about 6 months ago. Ears feel full. Had a sore throat for 2 weeks but resolved. History of seasonal allergies. Not taking any OTC medication as this time. No other HEENT symptoms at this time. Left wrist Pain: Fell down the steps 2 days ago and landed on left wrist. Ache pain. Has been taking Ibuprofen as needed. Tail bone: Fell in the fall, still having on going pain. Will be severe at times, pain with sitting and exercise. Taking ibuprofen which is helpful. PAST MEDICAL HISTORY: PAST MEDICAL HISTORY Diagnosis Date anxiety Asthma sports induced. No attacks since age 16 depression PAST SURGICAL HISTORY Procedure Laterality Date INSERTION OF IUD 07/15/2020 Mirena PAST SURGICAL HISTORY OF wisdom teeth and root canal PAST SURGICAL HISTORY OF Right 03/09/2023 Heel spur removed and tendon cut for plantar fasciitis ALLERGIES Amoxicillin, Dicyclomine, and Seasonal Allergies MEDICATIONS Current Outpatient Medications Medication Sig FLUoxetine (PROZAC) 20 mg capsule Take 1 capsule by mouth once daily. traZODone (DESYREL) 50 mg tablet Take 1 tablet by mouth daily at bedtime. meloxicam (MOBIC) 15 mg tablet Take 15 mg by mouth once daily. diphenhydramine HCl (BENADRYL ORAL) Take by mouth. No current facility-administere d medications for this visit. FAMILY HISTORY Problem Relation Age of Onset Asthma Mother other (Other tachycardia) Mother other (Other, hernia surgery) Father other (Other irregular heart rate) Father No Known Problems Sister No Known Problems Brother Cancer Maternal Grandmother skin cancer No Known Problems Maternal Grandfather Heart Paternal Grandmother other (benign tumor of ear) Paternal Grandmother No Known Problems Paternal Grandfather Asthma Brother Asthma Sister No Known Problems Son Social History Tobacco Use Smoking status: Never Smokeless tobacco: Never Vaping Use Vaping status: Never Used Substance Use Topics Alcohol use: Not Currently Comment: occasionally but not while Drug use: No REVIEW OF SYSTEMS GENERAL: No weight loss, malaise or fevers/chills HEENT: + Ear pain/itching NECK: Negative for lumps, goiter, pain and significant neck swelling RESPIRATORY: Negative for cough, hemoptysis, wheezing, dyspnea or shortness of breath CARDIOVASCULAR: Negative for chest pain, leg swelling, orthopnea, or palpitations GI: No nausea, vomiting, or diarrhea/constipatio n. No hematochezia/melena. No heartburn or reflux symptoms. : No history of dysuria, frequency or incontinence MUSCULOSKELETAL: + Wrist pain and tail bone pain SKIN: Negative for lesions, rash, and itching ENDOCRINE: Negative for cold or heat intolerance, polyuria, polydipsia and goiter NEURO: No history of headaches, syncope, paralysis, seizures or tremors MOOD: Negative for depression, anxiety, or suicidal ideation. EXAM: BP 118/82 Pulse 71 Resp 16 Wt 72.9 kg (160 lb 11.5 oz) LMP 07/21/2024 (Approximate) SpO2 98% BMI 29.40 kg/m? PHYSICAL EXAM: General Appearance: Well appearing, alert, in no acute distress, well-hydrated, well nourished. Skin: Skin color, texture, turgor normal, no suspicious rashes or lesions. Head: Normocephalic, no masses, lesions, tenderness or abnormalities. Eyes: Anicteric sclera. Extraocular movements are intact. Ears: External ears normal, canals clear, TM's pearly moncada. Nose/Sinuses: Positive findings: mucosa erythematous and swollen. Oropharynx: Lips, mucosa, and tongue normal, teeth and gums normal, oropharynx normal. Neck: Supple, no adenopathy; thyroid symmetric, normal size, no bruits. Lungs: Lungs clear to auscultation. No wheezing, rhonchi, rales. Heart: RRR without murmur, gallop, or rubs. No ectopy. Extremities: No deformities, edema, skin discoloration, clubbing or cyanosis. Good capillary refill. Musculoskeletal: Left wrist, full ROM, tender with palpation, ecchymosis noted, no edema. Spine full ROM. Peripheral Pulses: Normal, Capillary refill <2secs, strong peripheral pulses, Pulses palpable. Neurologic: Gait normal. Reflexes normal and symmetric. Sensa (more content not included)... Normal [facility] No Panel Informationon 07-27 Radiology Study observation (narrative) [facility] XR SACRUM/COCCYX 3V AP/LATon 07-27-2024 XR SACRUM/COCCYX 3V AP/LAT * * *Final Report* * * DATE OF EXAM: Jul 27 2024 9:03AM WOX [id number] - XR SACRUM/COCCYX 3V AP/LAT / PROCEDURE REASON: Tail bone pain * * * * Physician Interpretation * * * * EXAM TITLE: XR SACRUM/COCCYX 3V AP/LAT EXAM DATE/TIME: 07/27/2024 9:03 AM COMPARISON: None. CLINICAL INDICATION/HISTORY: Tailbone pain. TECHNIQUE: AP and lateral views of the sacrum/coccyx are presented. FINDINGS: No acute fractures demonstrated in the sacrum. No subluxation of the coccyx. 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 Symmetric bilateral hip joints. IMPRESSION: Unremarkable sacrum/coccyx x-ray. Osteitis condensans iliac Funeral Pre Arrangement Specialist: [facility] Transcribe Date/Time: Jul 27 2024 9:10A Dictated by : TALA VILLAGRAN MD This examination was interpreted and the report reviewed and electronically signed by: TALA VILLAGRAN MD on Jul 27 2024 9:13AM EST [id number] Normal [facility] XR Sacrum and Coccyx 3 Views on 07-27-2024 IMPRESSION: Unremarkable sacrum/coccyx x-ray. Osteitis condensans iliac Funeral Pre Arrangement Specialist: [facility] Transcribe Date/Time: Jul 27 2024 9:10A Dictated by : TALA VILLAGRAN MD This examination was interpreted and the report reviewed and electronically signed by: TALA VILLAGRAN MD on Jul 27 2024 9:13AM EST DIVISION OF RADIOLOGY * * *Final Report* * * DATE OF EXAM: Jul 27 2024 9:03AM WOX [id number] - XR SACRUM/COCCYX 3V AP/LAT / PROCEDURE REASON: Tail bone pain * * * * Physician Interpretation * * * * EXAM TITLE: XR SACRUM/COCCYX 3V AP/LAT EXAM DATE/TIME: 07/27/2024 9:03 AM COMPARISON: None. CLINICAL INDICATION/HISTORY: Tailbone pain. TECHNIQUE: AP and lateral views of the sacrum/coccyx are presented. FINDINGS: No acute fractures demonstrated in the sacrum. No subluxation of the coccyx. 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 Symmetric bilateral hip joints. DIVISION OF RADIOLOGY Provider, [facility] [place] - 07/27/2024 * * *Final Report* * * DATE OF EXAM: Jul 27 2024 9:03AM WOX [id number] - XR SACRUM/COCCYX 3V AP/LAT / PROCEDURE REASON: Tail bone pain * * * * Physician Interpretation * * * * EXAM TITLE: XR SACRUM/COCCYX 3V AP/LAT EXAM DATE/TIME: 07/27/2024 9:03 AM COMPARISON: None. CLINICAL INDICATION/HISTORY: Tailbone pain. TECHNIQUE: AP and lateral views of the sacrum/coccyx are presented. FINDINGS: No acute fractures demonstrated in the sacrum. No subluxation of the coccyx. 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 Symmetric bilateral hip joints. IMPRESSION IMPRESSION: Unremarkable sacrum/coccyx x-ray. Osteitis condensans iliac Funeral Pre Arrangement Specialist: ERIC Transcribe Date/Time: Jul 27 2024 9:10A Dictated by : TALA VILLAGRAN MD This examination was interpreted and the report reviewed and electronically signed by: TALA VILLAGRAN MD on Jul 27 2024 9:13AM EST [facility] XR WRIST 4V PA/LAT/OBL/SCAPH LTon 07-27-2024 XR WRIST 4V PA/LAT/OBL/SCAPH LT * * *Final Report* * * DATE OF EXAM: Jul 27 2024 9:03AM WOX [id number] - XR WRIST 4V PA/LAT/OBL/SCAPH LT / PROCEDURE REASON: Left wrist pain * * * * Physician Interpretation * * * * EXAM TITLE: XR WRIST 4V PA/LAT/OBL/SCAPH LT EXAM DATE/TIME: 07/27/2024 9:03 AM COMPARISON: None. CLINICAL INDICATION/HISTORY: Pain TECHNIQUE: PA, lateral, oblique and scaphoid views of left wrist are presented. FINDINGS: No fractures or subluxations are noted. The joint spaces are well preserved. The mineralization of the bones is normal. There is no significant soft tissue swelling. IMPRESSION: Unremarkable left wrist x-ray. [facility] Transcribe Date/Time: Jul 27 2024 9:25A Dictated by : TALA VILLAGRAN MD This examination was interpreted and the report reviewed and electronically signed by: TALA VILLAGRAN MD on Jul 27 2024 9:27AM EST [id number] Normal [facility] XR Wrist - left 4 Viewson IMPRESSION: Unremarkable left wrist x-ray. Funeral Pre Arrangement Specialist: [facility] Transcribe Date/Time: Jul 27 2024 9:25A Dictated by : TALA VILLAGRAN MD This examination was interpreted and the report reviewed and electronically signed by: TALA VILLAGRAN MD on Jul 27 2024 9:27AM EST DIVISION OF RADIOLOGY * * *Final Report* * * DATE OF EXAM: Jul 27 2024 9:03AM WOX [id number] - XR WRIST 4V PA/LAT/OBL/SCAPH LT / PROCEDURE REASON: Left wrist pain * * * * Physician Interpretation * * * * EXAM TITLE: XR WRIST 4V PA/LAT/OBL/SCAPH LT EXAM DATE/TIME: 07/27/2024 9:03 AM COMPARISON: None. CLINICAL INDICATION/HISTORY: Pain TECHNIQUE: PA, lateral, oblique and scaphoid views of left wrist are presented. FINDINGS: No fractures or subluxations are noted. The joint spaces are well preserved. The mineralization of the bones is normal. There is no significant soft tissue swelling. DIVISION OF RADIOLOGY Provider, [facility] [place] - 07/27/2024 * * *Final Report* * * DATE OF EXAM: Jul 27 2024 9:03AM WOX [id number] - XR WRIST 4V PA/LAT/OBL/SCAPH LT / PROCEDURE REASON: Left wrist pain * * * * Physician Interpretation * * * * EXAM TITLE: XR WRIST 4V PA/LAT/OBL/SCAPH LT EXAM DATE/TIME: 07/27/2024 9:03 AM COMPARISON: None. CLINICAL INDICATION/HISTORY: Pain TECHNIQUE: PA, lateral, oblique and scaphoid views of left wrist are presented. FINDINGS: No fractures or subluxations are noted. The joint spaces are well preserved. The mineralization of the bones is normal. There is no significant soft tissue swelling. IMPRESSION IMPRESSION: Unremarkable left wrist x-ray. Funeral Pre Arrangement Specialist: [facility] Transcribe Date/Time: Jul 27 2024 9:25A Dictated by : TALA VILLAGRAN MD This examination was interpreted and the report reviewed and electronically signed by: TALA VILLAGRAN MD on Jul 27 2024 9:27AM EST [facility] XR Wrist - left 4 ViewsOrder ed By: [facility] Provider on 07-27-2024 [facility] CNOVon 03-12-2024 CNOV Office Visit (ORTHWS) ANGELITA MARLEY ([id number]) 1995 F Date Time Provider Department 03/12/24 8:15 AM LUIS LOVETT During your visit today, we recorded the following information about you: Luis Lovett MD 03/12/2024 9:01 AM Signed Luis Lovett MD Department of Orthopaedics Orthopaedics 1 [facility] [address] Dept: [phone] Dept March 12, 2024 CHIEF COMPLAINT: New and Pain of the Left Hand and New and Pain of the Right Hand HPI Patient here today for bilateral hand pain, R>L x 6 months. 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 She is right hand dominant. She has had a rheumatoid workup and all of her blood work is normal. She recently completed a nerve conduction exam. 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 Will start with ultrasound exams of the ulnar nerves and follow-up from there. Cervical films would be next. Doppler exams of the arms if thoracic outlet remained a concern still. FOLLOW UP INSTRUCTIONS: Follow-up after elbow ultrasounds OBJECTIVE: Ms. Angelita Marley is a pleasant 28 year old in no apparent distress. Gen:LMP 01/23/2024 nl development, non obese, no deformities ENT: Normocephalic, normal hearing, moist mucosa CV: Pulses:Radial= 2+ and symmetric, capillary refill < 2 secs, no peripheral edema/varicosities Skin: no rash, bruising or lesions. Good turgor. Psych: cooperative and appropriate, alert and oriented x 3, good mood and affect. Musculoskeletal: Cervical spine has supple range of motion and no tenderness to palpation, Spurling's sign are equivocal bilaterally. Shoulders and elbows have full range of motion. No she reports reproduced symptoms with abduction and external rotation of bilateral arms, she does not have pulse dropping with provocative thoracic outlet testing right or left. Negative Tinel's over the cubital tunnel right and left, but positive Phalen's bilaterally at the elbows no subluxation of ulnar nerve at the elbow with flexion. Negative Tinel's over Guyon's canal. Inspection reveals no thenar atrophy. Intact sensation to light touch in the radial 3 digits. Sensation diminished in the ulnar 2 digits with out intrinsic atrophy, and some mild, symmetrical weakness with Froment's and intrinsic muscle strength testing. Negative Tinel's at the wrist, negative carpal tunnel compression testing on the right and left. No locking or catching of the digits. No tenderness to palpation or masses noted in the forearm or hand. IMAGING: Extensive electrodiagnostic examination of the right upper extremity and additional studies of the left upper extremity reveals no electrodiagnostic abnormalities. In particular, there is no evidence of a right and/or median neuropathy at or distal to the wrist (as seen in carpal tunnel syndrome), or a right C5-C8 intraspinal canal lesion, such as motor radiculopathy. Supporting Subjective Information Below: Past Medical History: PAST MEDICAL HISTORY Diagnosis Date anxiety Asthma sports induced. No attacks since age 16 depression Past Surgical History: PAST SURGICAL HISTORY Procedure Laterality Date INSERTION OF IUD 07/15/2020 Mirena PAST SURGICAL HISTORY OF wisdom teeth and root canal PAST SURGICAL HISTORY OF Right 03/09/2023 Heel spur removed and tendon cut for plantar fasciitis Family History: FAMILY HISTORY Problem Relation Age of Onset Asthma Mother other (Other tachycardia) Mother other (Other, hernia surgery) Father other (Other irregular heart rate) Father No Known Problems Sister No Known Problems Brother Cancer Maternal Grandmother skin cancer No Known Problems Maternal Grandfather Heart Paternal Grandmother other (benign tumor of ear) Paternal Grandmother No Known Problems Paternal Grandfather Asthma Brother Asthma Sister No Known Problems Son Social History: Social History Tobacco Use Smoking status: Never Smokeless tobacco: Never Vaping Use Vaping status: Never Used Substance Use Topics Alcohol use: Not Currently Comment: occasionally but not while Drug use: No Medications: Current Outpatient Medications Medication Sig FLUoxetine (PROZAC) 20 mg capsule Take 1 capsule by mouth once daily. traZODone (DESYREL) 50 mg tablet Take 1 tablet by mouth daily at bedtime. meloxicam (MOBIC) 15 mg tablet Take 15 mg by mouth once daily. diphenhydramine HCl (BENADRYL ORAL) Take by jojo (more content not included)... [facility] (RULTTB) DILMAANGELITA REYNOSO ([id number]) 1995 F Date Time Provider Department 03/12/24 LU VALVERDE RULTTB During your visit today, we recorded the following information about you: Lu Valverde 03/12/2024 10:13 AM Addendum Visit Type: ANY MSK Visit Length: 45. 50 OR 60 MINUTES Order Name/Protocol: US ELBOW RT+LT; MEDIAL-EVAL BILATERAL ULNAR NERVES. TIME SLOT ALLOTMENT OK'D BY DM VIA STAFF MSG Preferred Provider: N/A Comment: Please ask if the patient has ever had any prior surgery to their ELBOWS. If so, upgrade the visit type to an MSK1 and notate the surgical hx in the Appointment Note. Location: Depending on the surgical hx, this patient can have this exam performed at any of our three locations. Slot held: N/A Erica Baker 03/12/2024 1:06 PM Signed Called patient on March 12, 2024 at 1:06 PM to schedule their MSK US exam. No answer, left VM, 1st attempt. Erica Baker 03/12/2024 1:37 PM Signed Patient has been scheduled for their MSK US exam on 04/26/2024 : 10:15 AM at MAIN. Kayy Miller [facility] 08/07/2024 12:09 PM Signed Patient called the Call Center on Tuesday08/07/24: 12:04 to reschedule these exams she cancelled. Please give this patient a call back to ensure that they receive a new appointment. Ike Cole 08/07/2024 12:30 PM Signed PT scheduled for MSK US on 09/04/24 at 8:15 AM at Main Allergies As of Date: 03/12/2024 Noted Allergy Reaction AMOXICILLIN 01/13/2018 16 - Unknown Comments: When she was a child DICYCLOMINE 09/22/2023 5 - Intolerance Comments: Patient reports causes migraines SEASONAL ALLERGIES 01/13/2018 9 - Itching Date Reviewed: 03/12/2024 Reviewed by: Luis Lovett MD - Fully Assessed Reason for Visit: APPT RESCHEDULE REQUEST [Other] Prescriptions as of 08/07/2024 - cetirizine (ZYRTEC) 10 mg tablet Take 10 mg by mouth as needed. - fluticasone (FLONASE ALLERGY RELIEF) 50 mcg/actuation nasal spray Use 1 [place] in each nostril two times a day. - FLUoxetine (PROZAC) 20 mg capsule Take 1 capsule by mouth once daily. - traZODone (DESYREL) 50 mg tablet Take 1 tablet by mouth daily at bedtime. - meloxicam (MOBIC) 15 mg tablet Take 15 mg by mouth once daily. - diphenhydramine HCl (BENADRYL ORAL) Take by mouth. Problem List As Of Date 03/12/2024 Noted Resolved History of anxiety [Z86.59] 05/25/2018 Genetic testing [Z13.79] 05/25/2018 06/22/2018 Encounter for ultrasound [Z36.9] 05/25/2018 06/22/2018 Asthma complicating in first trimeste*05/25/2018 06/12/2020 Encounter for supervision of normal first pregn*09/22/2018 06/12/2020 Short interval between pregnancies affecting pr*09/13/2019 06/12/2020 History of depression [Z87.59, Z86.5*09/13/2019 06/12/2020 Encounter Status:Closed by ERICA BAKER on 03/12/24 [facility] 02-13-2024 Results can be seen in attached scanned documents. If you are a patient reviewing this test result, call the doctor who ordered the test with any questions. [facility] Nursing Communicationon 06-2 Haley romo [facility] XR FOOT RIGHT 3+ VIEWS (JORDAN MUÑOZ)on 09-01-2023 XR FOOT RIGHT 3+ VIEWS (STANDARD) X-rays 2 views right heel: There is no signs of stress fracture or recurrent calcaneal spur. Dictated by: GIO RICHARDSON on Jennifer September 01, 2023 4:04:31 PM EDT Transcribed by: GIO RICHARDSON on [facility] September 01, 2023 4:04:31 PM EDT Finalized by: GIO RICHARDSON on [facility] September 01, 2023 4:04:31 PM EDT Normal [facility] Comment on above: Order Comment: Injur y/Trauma or Illness?:Illness/Other How long have you had these symptoms (acute/chronic)?:Acute Reason for exam?:pain History of cancer?:no Surgeries, chemotherapy, or radiation?:no Type of Exam?:Initial Additional signs and symptoms?:no XR FOOT RIGHT 3+ VIEWS (JORDAN MUÑOZ)on 03-11-2023 XR FOOT RIGHT 3+ VIEWS (STANDARD) Xray 3 views right foot - there is removal of the inferior calcaneal spur Dictated by: GIO RICHARDSON on TueMar 11, 2023 1:40:52 PM EST Transcribed by: GIO RICHARDSON on TueMar 11, 2023 1:40:52 PM EST Finalized by: GIO RICHARDSON on TueMar 11, 2023 1:40:52 PM EST [facility] Comment on above: Order Comment: Injur y/Trauma or Illness?:Illness/Other How long have you had these symptoms (acute/chronic)?:Acute Reason for exam?:PO heel spur excision History of cancer?:no Surgeries, chemotherapy, or radiation?:no Type of Exam?:Subsequent/Follow-up Additional signs and symptoms?:none XR Foot Right 3+ Views (Jordan muñoz)on 03-11-2023 Xray 3 views right foot - there is removal of the inferior calcaneal spur [facility] Radiology Study observation (narrative) [facility] XR OR FOOT RIGHT 1 VIEWon XR OR FOOT RIGHT 1 VIEW EXAMINATION: XR OR FOOT RIGHT 1 VIEW HISTORY: ORDERING SYSTEM PROVIDED HISTORY: Plantar fasciotomy with heel spur resection right foot, TECHNOLOGIST PROVIDED HISTORY: Illness/Other Reason for exam: Plantar fasciotomy with heel spur resection right foot Encounter Type: Initial Additional signs and symptoms: n Fluoro dose in mGy: 0.01 ORDERING SYSTEM PROVIDED DIAGNOSIS CODES: M77.31 Heel spur, right COMPARISON: None FINDINGS: Single fluoroscopic image of the heel for intraoperative localization. IMPRESSION: See operative notes. Workstation ID: [id number] Dictated by: MARK WATSON on TueMar 09, 2023 12:24:07 PM EST Transcribed by: MARK WATSON on TueMar 09, 2023 12:24:07 PM EST Finalized by: MARK WATSON on TueMar 09, 2023 12:24:07 PM EST Normal [facility] Comment on above: Order Comment: Injur y/Trauma or Illness?:Illness/Other How long have you had these symptoms (acute/chronic)?:Acute Reason for exam?:Plantar fasciotomy with heel spur resection right foot Type of Exam?:Initial Additional signs and symptoms?:n Fluoro time in minutes:0 0 minutes or 0.00 seconds Fluoro dose in mGy?:0.01 .012 mGy/min XR CALCANEUS RIGHT 2+ VIEWS (STANDARD)on 01-13-2023 XR CALCANEUS RIGHT 2+ VIEWS (STANDARD) Xray 2 views right - There is inferior calcaneal spur . No tumor or stress fracture Dictated by: GIO RICHARDSON on TueJan 13, 2023 3:25:04 PM EDT Transcribed by: GIO RICHARDSON on TueJan 13, 2023 3:25:04 PM EDT Finalized by: GIO RICHARDSON on TueJan 13, 2023 3:25:04 PM EDT Normal [facility] Comment on above: Order Comment: Injur y/Trauma or Illness?:Illness/Other How long have you had these symptoms (acute/chronic)?:Acute Reason for exam?:pain History of cancer?:no Surgeries, chemotherapy, or radiation?:no Type of Exam?:Initial Additional signs and symptoms?:no XR Chest AP/PA and LATon Unremarkable PA and lateral views of the chest. Workstation ID: [id number] [employer] RIS EXAMINATION: XR CHEST AP/PA AND LAT HISTORY: ORDERING SYSTEM PROVIDED HISTORY: chest pain, TECHNOLOGIST PROVIDED HISTORY: Illness/Other Reason for exam: chest pain, dizziness Cancer History: unk Surgery, RadiationHistory: unk Encounter Type: Initial Additional signs and symptoms: midsternal pain when raising arms above head ORDERING SYSTEM PROVIDED DIAGNOSIS CODES: R42 Dizziness COMPARISON: None. TECHNIQUE: 2 PA and single lateral views of the chest performed. FINDINGS: The trachea is midline. The heart size is normal. The mediastinal and hilar shadows are normal. The lung smith are clear. There is no consolidation or infiltrate. There is no pleural effusion or pulmonary vascular congestion. There is no pneumothorax or osseous abnormality. [facility] Usama Dotson MD - 05/18/2022 EXAMINATION: XR CHEST AP/PA AND LAT HISTORY: ORDERING SYSTEM PROVIDED HISTORY: chest pain, TECHNOLOGIST PROVIDED HISTORY: Illness/Other Reason for exam: chest pain, dizziness Cancer History: unk Surgery, RadiationHistory: unk Encounter Type: Initial Additional signs and symptoms: midsternal pain when raising arms above head ORDERING SYSTEM PROVIDED DIAGNOSIS CODES: R42 Dizziness COMPARISON: None. TECHNIQUE: 2 PA and single lateral views of the chest performed. FINDINGS: The trachea is midline. The heart size is normal. The mediastinal and hilar shadows are normal. The lung smith are clear. There is no consolidation or infiltrate. There is no pleural effusion or pulmonary vascular congestion. There is no pneumothorax or osseous abnormality. IMPRESSION: Unremarkable PA and lateral views of the chest. Workstation ID: [id number] [facility] Radiology Study observation (narrative) XR Chest AP/PA and LATOrdere d By: Usama Dotson on 05-18-2022 [facility] Work Phone: Comprehensive metabolic 2000 panelon 04-13-2021 Albumin [Mass/Vol] 3.5 g/dL 3.2 - 5.2 g/dL [facility] ALP [Catalytic activity/Vol] 79 U/L 40 - 140 U/L [facility] ALT [Catalytic activity/Vol] 21 U/L 14 - 65 U/L [facility] Anion gap [Moles/Vol] 12 mmol/L 10 - 2 0 mmol/L [facility] AST [Catalytic activity/Vol] 13 U/L 0 - 45 U/L [facility] Bilirubin [Mass/Vol] 0.7 mg/dL 0.0 - 1 .3 mg/dL [facility] Calcium [Mass/Vol] 8.5 mg/dL 8.4 - 10. 2 mg/dL [facility] Chloride [Moles/Vol] 109 mmol/L High 98 - 10 8 mmol/L [facility] Creatinine [Mass/Vol] 0.59 mg/dL 0.40 - 1.10 [facility] GFR/1.73 sq M.predicted CKD-EPI (S/P/Bld) [Vol rate/Area] 127 >=60 mL/min/1.73 m2 [facility] Glucose [Mass/Vol] 85 mg/dL 65 - 99 mg/dL [facility] HCO3 [Moles/Vol] 22 mmol/L 21 - 32 mmol/L [facility] Potassium [Moles/Vol] 4.1 mmol/L 3.5 - 5.1 mmol/L [facility] Protein [Mass/Vol] 7.3 g/dL 6.0 - 8.0 g/dL [facility] Sodium [Moles/Vol] 139 mmol/L 135 - 145 mmol/L [facility] Urea nitrogen [Mass/Vol] 9 mg/dL 8 - 25 mg/dL [facility] Urea nitrogen/Creatinine [Mass ratio] 15.3 mg/mg [facility] The eGFR should be used for monitoring renal function only and not for medication dosing. [facility] Lipid 1996 panelon 1 Cholesterol [Mass/Vol] 221 mg/dL High 100 - 199 mg/dL [facility] Comment on above: National Cholesterol Education Program Guidelines: Cholesterol Desirable: <200 mg/dL Borderline High: 200-239 mg/dL High: greater than or equal to 240 mg/dL Cholesterol in HDL [Mass/Vol] 41 mg/dL 40 - 59 [facility] Comment on above: National Cholesterol Education Program Guidelines: HDL Cholesterol Low: <40 mg/dL Near Optimal: 40-59 mg/dL High: greater than or equal to 60 mg/dL Cholesterol in LDL [Mass/Vol] 154 mg/dL High 10 - 130 mg/dL [facility] Comment on above: National Cholesterol Education Program Guidelines: LDL Cholesterol Optimal: <100 mg/dL Near Optimal/above Optimal: 100-129 mg/dL Borderline High: 130-159 mg/dL High: 160-189 mg/dL Very High: greater than or equal to 190 mg/dL Cholesterol non HDL [Mass/Vol] 180 mg/dL [facility] Comment on above: National Cholesterol Education Program Guidelines: NON HDL Cholesterol Desirable: <130 mg/dL Borderline High: 130-159 mg/dL High: 160-189 mg/dL Very High: > or = 190 mg/dL Cholesterol.total/Choles terol in HDL [Mass ratio] 5.4 {ratio} ratio [facility] Comment on above: Female Cholesterol/H DL Ratio: Average risk: 4.4 1/2 average risk: 3.3 2 x average risk: 7.1 Triglyceride [Mass/Vol] 130 mg/dL 30 - 150 mg/dL [facility] Comment on above: National Cholesterol Education Program Guidelines: Triglyceride Normal: <150 mg/dL Borderline High: 150-199 mg/dL High: 200-499 mg/dL Very High: greater than or equal to 500 mg/dL No Panel Informationon 04-13 Interpretation and review of laboratory results Abnormal [facility] TSH DL <= 0.005 mIU/L Qnon 1 06-14-2020 Interpretation and review of laboratory results Normal [facility] TSH Qn 1.42 m[IU]/L [facility] Vitamin D, Total, 25-OHon 25-hydroxyvitamin D [Mass/Vol] 30 ng/mL 30 - 100 ng/mL [facility] Comment on above: Vitamin D status: Deficiency: <20 ng/mL Insufficiency: 20-30 ng/mL Sufficiency: 30-100 ng/mL Toxicity: >100 ng/mL Please note that Fluorescein which is used in angiography has been shown to falsely elevate the results of Vitamin D with our current assay. Evidence suggests that patients undergoing fluorescein dye angiography can retain small amounts of fluorescein in the body for up to 48 to 72 hours post-treatment. In the cases of patients with renal insufficiency, retention could be much longer. Samples should be resubmitted post fluorescein clearance to ensure there is no interference with the Vitamin D test result. Interpretation and review of laboratory results Normal [facility] Assay performed using [employer]'s chemiluminescence methodology. [facility] [place] ORT LARGE JOINT ARTHROCEN TESISOrdered By: Adriane Cedeño on 09-25-2020 Adriane Cedeño CNP 09/25/2020 3:26 PM LG Jt Injection/Arthrocent esis: R knee Performed by: Adriane Cedeño CNP Authorized by: Adriane Cedeño CNP CPT 53364 - Large Joint Arthrocentesis: Consent given by: Patient Time out: Immediately prior to the procedure a time out was called Timeout performed at: 09/25/2020 3:26 PM Physician or proceduralist has discussed critical or nonroutine steps, procedure duration and anticipated blood loss: Yes Supporting Documentation: Indications: Pain Procedure Details: Location: Knee Site: R knee Prep: patient was prepped and draped in usual sterile fashion Needle size: 22 G Approach: Anterolateral Medications: 40 mg triamcinolone acetonide 40 mg/mL Anesthetic used: Bupivacaine 0.25% and Ethyl Chloride Anesthetic amount (mL): 5 Patient tolerance: Patient tolerated the procedure well with no immediate complications [facility] XR KNEE RIGHT 3 VIEWS (SPECI FY VIEWS IN COMMENTS)on 09-25-2020 XR KNEE RIGHT 3 VIEWS (SPECIFY VIEWS IN COMMENTS) EXAMINATION: XR KNEE RIGHT 3 VIEWS (SPECIFY VIEWS IN COMMENTS) HISTORY: ORDERING SYSTEM PROVIDED HISTORY: pain, TECHNOLOGIST PROVIDED HISTORY: Injury/Trauma Reason for exam: pain Cancer History: unk Surgery, RadiationHistory: unk Encounter Type: Initial Mechanism of injury: fall/twist ORDERING SYSTEM PROVIDED DIAGNOSIS CODES: M25.561 Right knee pain, unspecified chronicity COMPARISON: None. FINDINGS: Three views of the right knee. No acute fracture. Joint alignment is anatomic. Joint spaces are preserved. No significant joint effusion. Soft tissues are within normal limits. IMPRESSION: No acute osseous abnormality. [employer] Workstation ID: [id number] Dictated by: SHAI MALDONADO on TueSeptember 25, 2020 3:10:39 PM EDT Transcribed by: ESMER BOONE on TueSeptember 25, 2020 3:44:21 PM EDT Finalized by: SHAI MALDONADO on TueSeptember 25, 2020 9:37:19 PM EDT [facility] Comment on above: Order Comment: Injur y/Trauma or Illness?:Injury/Trauma How long have you had these symptoms (acute/chronic)?:Unknown Reason for exam?:pain History of cancer?:unk Surgeries, chemotherapy, or radiation?:unk Type of Exam?:Initial Mechanism of injury?:fall/twist Vital Signs Date Time Vital Sign Value Performing Clinician Facility 01-09-2025 10:46-0400 Diastolic blood pressure 66 mm[Hg] [facility] 01-09-2025 10:46-0400 Heart rate 44 /min [facility] 01-09-2025 10:46-0400 SaO2% (BldA) [Mass fraction] 99 % [facility] 01-09-2025 10:46-0400 Systolic blood pressure 100 mm[Hg] [facility] 12-14-2024 14:31-0400 Body mass index (BMI) [Ratio] 29.26 kg/m2 Cecile Suppan HUNTER TRAPPER.CATERING ADMINISTRATIVE ASSISTANT Work Phone: [facility] 12-14-2024 14:31-0400 Body weight 72.58 kg Cecile Suppan HUNTER TRAPPER.CATERING ADMINISTRATIVE ASSISTANT Work Phone: [facility] 12-14-2024 14:31-0400 Diastolic blood pressure 86 mm[Hg] Cecile Suppan HUNTER TRAPPER.CATERING ADMINISTRATIVE ASSISTANT Work Phone: [facility] 12-14-2024 14:31-0400 Heart rate 83 /min Cecile Suppan HUNTER TRAPPER.CATERING ADMINISTRATIVE ASSISTANT Work Phone: [facility] 12-14-2024 14:31-0400 SaO2% (BldA) [Mass fraction] 100 % Cecile Suppan HUNTER TRAPPER.CATERING ADMINISTRATIVE ASSISTANT Work Phone: [facility] 12-14-2024 14:31-0400 Systolic blood pressure 126 mm[Hg] Cecile Suppan HUNTER TRAPPER.CATERING ADMINISTRATIVE ASSISTANT Work Phone: [facility] 11-22-2024 11:48-0400 Body height 157.5 cm Flavio Navarrete MD Work Phone: [facility] 11-22-2024 11:48-0400 Body mass index (BMI) [Ratio] 28.35 kg/m2 Flavio Navarrete MD Work Phone: [facility] 11-22-2024 11:48-0400 Body weight 70.31 kg Flavio Navarrete MD Work Phone: [facility] 11-22-2024 11:48-0400 Diastolic blood pressure 71 mm[Hg] Flavio Navarrete MD Work Phone: [facility] 11-22-2024 11:48-0400 Heart rate 80 /min Flavio Navarrete MD Work Phone: [facility] 11-22-2024 11:48-0400 Respiratory rate 14 /min Flavio Navarrete MD Work Phone: [facility] 11-22-2024 11:48-0400 SaO2% (BldA) [Mass fraction] 100 % Flavio Navarrete MD Work Phone: [facility] 11-22-2024 11:48-0400 Systolic blood pressure 125 mm[Hg] Flavio Navarrete MD Work Phone: [facility] 11-12-2024 19:09-0400 Body height 157.5 cm Cecile Suppan HUNTER TRAPPER-CITY LIBRARY DIRECTOR Other Phone: [facility] 11-12-2024 19:09-0400 Body mass index (BMI) [Ratio] 28.53 kg/m2 Cecile Suppan HUNTER TRAPPER-CITY LIBRARY DIRECTOR Other Phone: [facility] 11-12-2024 19:09-0400 Body temperature 98.01 [degF] Cecile Suppan HUNTER TRAPPER-CITY LIBRARY DIRECTOR Other Phone: [facility] 11-12-2024 19:09-0400 Body weight 70.76 kg Cecile Suppan HUNTER TRAPPER-CITY LIBRARY DIRECTOR Other Phone: [facility] 11-12-2024 19:09-0400 Diastolic blood pressure 86 mm[Hg] Cecile Suppan HUNTER TRAPPER-CITY LIBRARY DIRECTOR Other Phone: [facility] 11-12-2024 19:09-0400 Heart rate 71 /min Cecile Suppan HUNTER TRAPPER-CITY LIBRARY DIRECTOR Other Phone: [facility] 11-12-2024 19:09-0400 Respiratory rate 18 /min Cecile Suppan HUNTER TRAPPER-CITY LIBRARY DIRECTOR Other Phone: [facility] 11-12-2024 19:09-0400 SaO2% (BldA) [Mass fraction] 99 % Cecile Suppan HUNTER TRAPPER-CITY LIBRARY DIRECTOR Other Phone: [facility] 11-12-2024 19:09-0400 Systolic blood pressure 131 mm[Hg] Cecile Suppan HUNTER TRAPPER-CITY LIBRARY DIRECTOR Other Phone: [facility] 11-08-2024 21:26-0400 Diastolic blood pressure 100 mm[Hg] Cecile Suppan HUNTER TRAPPER-CITY LIBRARY DIRECTOR Other Phone: [facility] 11-08-2024 21:26-0400 Heart rate 72 /min Cecile Suppan HUNTER TRAPPER-CITY LIBRARY DIRECTOR Other Phone: [facility] 11-08-2024 21:26-0400 Respiratory rate 18 /min Cecile Suppan HUNTER TRAPPER-CITY LIBRARY DIRECTOR Other Phone: [facility] 11-08-2024 21:26-0400 SaO2% (BldA) [Mass fraction] 98 % Cecile Suppan HUNTER TRAPPER-CITY LIBRARY DIRECTOR Other Phone: [facility] 11-08-2024 21:26-0400 Systolic blood pressure 126 mm[Hg] Cecile Suppan HUNTER TRAPPER-CITY LIBRARY DIRECTOR Other Phone: [facility] 11-08-2024 18:50-0400 Body mass index (BMI) [Ratio] 28.4 kg/m2 Cecile Suppan HUNTER TRAPPER-CITY LIBRARY DIRECTOR Other Phone: [facility] 11-08-2024 18:50-0400 Body weight 71 kg Cecile Suppan HUNTER TRAPPER-CITY LIBRARY DIRECTOR Other Phone: [facility] 11-08-2024 18:02-0400 Body height 158.1 cm Cecile Suppan HUNTER TRAPPER-CITY LIBRARY DIRECTOR Other Phone: [facility] 11-08-2024 18:02-0400 Body temperature 98.01 [degF] Cecile Suppan HUNTER TRAPPER-CITY LIBRARY DIRECTOR Other Phone: [facility] 11-08-2024 08:43-0400 Body mass index (BMI) [Ratio] 29.26 kg/m2 Cecile Suppan HUNTER TRAPPER.CATERING ADMINISTRATIVE ASSISTANT Work Phone: [facility] 11-08-2024 08:43-0400 Body weight 72.58 kg Cecile Suppan HUNTER TRAPPER.CATERING ADMINISTRATIVE ASSISTANT Work Phone: [facility] 11-08-2024 08:43-0400 Diastolic blood pressure 70 mm[Hg] Cecile Suppan HUNTER TRAPPER.CATERING ADMINISTRATIVE ASSISTANT Work Phone: [facility] 11-08-2024 08:43-0400 Heart rate 62 /min Cecile Suppan HUNTER TRAPPER.CATERING ADMINISTRATIVE ASSISTANT Work Phone: [facility] 11-08-2024 08:43-0400 SaO2% (BldA) [Mass fraction] 100 % Cecile Suppan HUNTER TRAPPER.CATERING ADMINISTRATIVE ASSISTANT Work Phone: [facility] 11-08-2024 08:43-0400 Systolic blood pressure 96 mm[Hg] Cecile Suppan HUNTER TRAPPER.CATERING ADMINISTRATIVE ASSISTANT Work Phone: [facility] 11-07-2024 18:36-0400 Body temperature 98 [degF] Dr. Rj Jo DO Work Phone: [facility] 11-07-2024 18:36-0400 Diastolic blood pressure 97 mm[Hg] Dr. Rj Jo DO Work Phone: [facility] 11-07-2024 18:36-0400 Heart rate 63 /min Dr. Rj Jo DO Work Phone: [facility] 11-07-2024 18:36-0400 Respiratory rate 14 /min Dr. Rj Jo DO Work Phone: [facility] 11-07-2024 18:36-0400 SaO2% (BldA) [Mass fraction] 98 % Dr. Rj Jo DO Work Phone: [facility] 11-07-2024 18:36-0400 Systolic blood pressure 121 mm[Hg] Dr. Rj Jo DO Work Phone: [facility] 11-07-2024 14:36-0400 Body height 157.[address] Rj Jo DO Work Phone: [facility] 11-07-2024 14:36-0400 Body mass index (BMI) [Ratio] 29.2 kg/m2 Dr. Rj Jo DO Work Phone: [facility] 11-07-2024 14:36-0400 Body weight 72.[address] Rj Jo DO Work Phone: [facility] 10-16-2024 09:22-0400 Body mass index (BMI) [Ratio] 29.23 kg/m2 Munir Allison MD Work Phone: [facility] 10-16-2024 09:22-0400 Body weight 72.5 kg Munir Allison MD Work Phone: [facility] 10-16-2024 09:22-0400 Diastolic blood pressure 70 mm[Hg] Munir Allison MD Work Phone: [facility] 10-16-2024 09:22-0400 Heart rate 70 /min Munir Allison MD Work Phone: [facility] 10-16-2024 09:22-0400 Respiratory rate 16 /min Munir Allison MD Work Phone: [facility] 10-16-2024 09:22-0400 Systolic blood pressure 118 mm[Hg] Munir Allison MD Work Phone: [facility] 07-27-2024 08:15-0400 Body mass index (BMI) [Ratio] 29.4 kg/m2 Kenzie Bowen HUNTER TRAPPER.CATERING ADMINISTRATIVE ASSISTANT Work Phone: [facility] 07-27-2024 08:15-0400 Body weight 72.9 kg Kenzie Bowen HUNTER TRAPPER.CATERING ADMINISTRATIVE ASSISTANT Work Phone: [facility] 07-27-2024 08:15-0400 Diastolic blood pressure 82 mm[Hg] Kenzie Bowen HUNTER TRAPPER.CATERING ADMINISTRATIVE ASSISTANT Work Phone: [facility] 07-27-2024 08:15-0400 Heart rate 71 /min Kenzie Bowen HUNTER TRAPPER.CATERING ADMINISTRATIVE ASSISTANT Work Phone: [facility] 07-27-2024 08:15-0400 Respiratory rate 16 /min Kenzie Tannhof HUNTER TRAPPER.CATERING ADMINISTRATIVE ASSISTANT Work Phone: [facility] 07-27-2024 08:15-0400 SaO2% (BldA) [Mass fraction] 98 % Kenzie Tannhof HUNTER TRAPPER.CATERING ADMINISTRATIVE ASSISTANT Work Phone: [facility] 07-27-2024 08:15-0400 Systolic blood pressure 118 mm[Hg] Kenzie Tannhof HUNTER TRAPPER.CATERING ADMINISTRATIVE ASSISTANT Work Phone: [facility] 02-02-2024 06:54-0400 Body mass index (BMI) [Ratio] 29.56 kg/m2 Kenzie Tannhof HUNTER TRAPPER.CATERING ADMINISTRATIVE ASSISTANT Work Phone: [facility] 02-02-2024 06:54-0400 Body weight 73.3 kg Kenzie Tannhof HUNTER TRAPPER.CATERING ADMINISTRATIVE ASSISTANT Work Phone: [facility] 02-02-2024 06:54-0400 Diastolic blood pressure 77 mm[Hg] Kenzie Tannhof HUNTER TRAPPER.CATERING ADMINISTRATIVE ASSISTANT Work Phone: [facility] 02-02-2024 06:54-0400 Heart rate 76 /min Kenzie Tannhof HUNTER TRAPPER.CATERING ADMINISTRATIVE ASSISTANT Work Phone: [facility] 02-02-2024 06:54-0400 Respiratory rate 16 /min Kenzie Tannhof HUNTER TRAPPER.CATERING ADMINISTRATIVE ASSISTANT Work Phone: [facility] 02-02-2024 06:54-0400 SaO2% (BldA) [Mass fraction] 98 % Kenzie Tannhof HUNTER TRAPPER.CATERING ADMINISTRATIVE ASSISTANT Work Phone: [facility] 02-02-2024 06:54-0400 Systolic blood pressure 118 mm[Hg] Kenzie Tannhof HUNTER TRAPPER.CATERING ADMINISTRATIVE ASSISTANT Work Phone: [facility] 10-20-2023 08:20-0400 Body temperature 98.4 [degF] Gio Richardson DP Work Phone: [facility] 10-20-2023 08:20-0400 Diastolic blood pressure 73 mm[Hg] Gioviolet AlbertRichardson DPM Work Phone: [facility] 10-20-2023 08:20-0400 Heart rate 71 /min Gio Richardson DPM Work Phone: [facility] 10-20-2023 08:20-0400 Systolic blood pressure 113 mm[Hg] Gio Richardson DPM Work Phone: [facility] 09-29-2023 08:20-0400 Body temperature 98.1 [degF] Gio Richardson DPM Work Phone: [facility] 09-29-2023 08:20-0400 Diastolic blood pressure 81 mm[Hg] Gio Richardson DPM Work Phone: [facility] 09-29-2023 08:20-0400 Heart rate 87 /min Gio Richardson DPM Work Phone: [facility] 09-29-2023 08:20-0400 Systolic blood pressure 118 mm[Hg] Gio Richardson DPM Work Phone: [facility] 09-22-2023 07:41-0400 Body mass index (BMI) [Ratio] 28.31 kg/m2 Kenzie Hayshof HUNTER TRAPPER.CATERING ADMINISTRATIVE ASSISTANT Work Phone: [facility] 09-22-2023 07:41-0400 Body weight 70.22 kg Kenzie Hayshof HUNTER TRAPPER.CATERING ADMINISTRATIVE ASSISTANT Work Phone: [facility] 09-22-2023 07:41-0400 Diastolic blood pressure 68 mm[Hg] Kenzie Hayshof HUNTER TRAPPER.CATERING ADMINISTRATIVE ASSISTANT Work Phone: [facility] 09-22-2023 07:41-0400 Heart rate 69 /min Kenzie Hayshof HUNTER TRAPPER.CATERING ADMINISTRATIVE ASSISTANT Work Phone: [facility] 09-22-2023 07:41-0400 Respiratory rate 16 /min Kenzie Hayshof HUNTER TRAPPER.CATERING ADMINISTRATIVE ASSISTANT Work Phone: [facility] 09-22-2023 07:41-0400 SaO2% (BldA) [Mass fraction] 98 % Kenzie Tannhof HUNTER TRAPPER.CATERING ADMINISTRATIVE ASSISTANT Work Phone: [facility] 09-22-2023 07:41-0400 Systolic blood pressure 110 mm[Hg] Kenzie Tannhof HUNTER TRAPPER.CATERING ADMINISTRATIVE ASSISTANT Work Phone: [facility] 09-01-2023 15:32-0400 Body temperature 98.4 [degF] Gio Richardson DPM Work Phone: [facility] 09-01-2023 15:32-0400 Diastolic blood pressure 79 mm[Hg] Gio Richardson DPM Work Phone: [facility] 09-01-2023 15:32-0400 Heart rate 82 /min Gio Richardson DPM Work Phone: [facility] 09-01-2023 15:32-0400 Systolic blood pressure 116 mm[Hg] Gio Richardson DPM Work Phone: [facility] 08-11-2023 09:12-0400 Body weight 72.58 kg Kenzie Tannhof HUNTER TRAPPER.CATERING ADMINISTRATIVE ASSISTANT Work Phone: [facility] 08-11-2023 09:12-0400 Diastolic blood pressure 78 mm[Hg] Kenzie Tannhof HUNTER TRAPPER.CATERING ADMINISTRATIVE ASSISTANT Work Phone: [facility] 08-11-2023 09:12-0400 Heart rate 84 /min Kenzie Tannhof HUNTER TRAPPER.CATERING ADMINISTRATIVE ASSISTANT Work Phone: [facility] 08-11-2023 09:12-0400 Respiratory rate 16 /min Kenzie Tannhof HUNTER TRAPPER.CATERING ADMINISTRATIVE ASSISTANT Work Phone: [facility] 08-11-2023 09:12-0400 SaO2% (BldA) [Mass fraction] 98 % Kenzie Tannhof HUNTER TRAPPER.CATERING ADMINISTRATIVE ASSISTANT Work Phone: [facility] 08-11-2023 09:12-0400 Systolic blood pressure 110 mm[Hg] Kenzie Tannhof HUNTER TRAPPER.CATERING ADMINISTRATIVE ASSISTANT Work Phone: [facility] 05-05-2023 08:05-0500 Body temperature 98.49 [degF] Gio Richardson DPM Work Phone: [facility] 05-05-2023 08:05-0500 Diastolic blood pressure 75 mm[Hg] Gio Srivastavaman DPM Work Phone: [facility] 05-05-2023 08:05-0500 Heart rate 81 /min Gio Richardson DPM Work Phone: [facility] 05-05-2023 08:05-0500 Systolic blood pressure 109 mm[Hg] Gio Richardson DPM Work Phone: [facility] 03-25-2023 14:15-0500 Body temperature 98.4 [degF] Gio Richardson DPM Work Phone: [facility] 03-25-2023 14:15-0500 Diastolic blood pressure 87 mm[Hg] Gio Richardson DPM Work Phone: [facility] 03-25-2023 14:15-0500 Heart rate 69 /min Gio Richardson DPM Work Phone: [facility] 03-25-2023 14:15-0500 Systolic blood pressure 125 mm[Hg] Gio Richardson DPM Work Phone: [facility] 03-11-2023 13:22-0500 Body temperature 98.4 [degF] Gio Richardson DPM Work Phone: [facility] 03-11-2023 13:22-0500 Diastolic blood pressure 83 mm[Hg] Gio Richardson DPM Work Phone: [facility] 03-11-2023 13:22-0500 Heart rate 67 /min Gio Richardson DPM Work Phone: [facility] 03-11-2023 13:22-0500 Systolic blood pressure 121 mm[Hg] Gio Richardson DPM Work Phone: [facility] 02-10-2023 07:58-0400 Body temperature 98.29 [degF] Gio Richardson DPM Work Phone: [facility] 02-10-2023 07:58-0400 Diastolic blood pressure 74 mm[Hg] Gio Richardson DPM Work Phone: [facility] 02-10-2023 07:58-0400 Heart rate 64 /min Gioviolet AlbertRichardson DPM Work Phone: [facility] 02-10-2023 07:58-0400 Systolic blood pressure 113 mm[Hg] Gioviolet AlbertRichardson DPM Work Phone: [facility] 01-13-2023 15:05-0400 Diastolic blood pressure 84 mm[Hg] Gioviolet AlbertRichardson DPM Work Phone: [facility] 01-13-2023 15:05-0400 Heart rate 76 /min Gio Michelle DPM Work Phone: [facility] 01-13-2023 15:05-0400 Systolic blood pressure 126 mm[Hg] Gio Richardson DPM Work Phone: [facility] 01-13-2023 14:52-0400 Body temperature 99 [degF] Gio Michelle DPM Work Phone: [facility] 05-18-2022 17:28-0500 Body height 157.5 cm Bri Sánchez MD Work Phone: [facility] 05-18-2022 17:28-0500 Body mass index (BMI) [Ratio] 30.67 kg/m2 Bri Sánchez MD Work Phone: [facility] 05-18-2022 17:28-0500 Body temperature 98.29 [degF] Bri Sánchez MD Work Phone: [facility] 05-18-2022 17:28-0500 Body weight 76.07 kg Bri Sánchez MD Work Phone: [facility] 05-18-2022 17:28-0500 Diastolic blood pressure 80 mm[Hg] Bri Sánchez MD Work Phone: [facility] 05-18-2022 17:28-0500 Heart rate 76 /min Bri Sánchez MD Work Phone: [facility] 05-18-2022 17:28-0500 Respiratory rate 16 /min Bri Sánchez MD Work Phone: [facility] 05-18-2022 17:28-0500 SaO2% (BldA) [Mass fraction] 97 % Bri Sánchez MD Work Phone: [facility] 05-18-2022 17:28-0500 Systolic blood pressure 122 mm[Hg] Bri Sánchez MD Work Phone: [facility] 04-05-2022 08:59-0500 Body height 157.5 cm Bri Sánchez MD Work Phone: [facility] 04-05-2022 08:59-0500 Body mass index (BMI) [Ratio] 31.64 kg/m2 Bri Sánchez MD Work Phone: [facility] 04-05-2022 08:59-0500 Body temperature 98.4 [degF] Bri Sánchez MD Work Phone: [facility] 04-05-2022 08:59-0500 Body weight 78.47 kg Bri Sánchez MD Work Phone: [facility] 04-05-2022 08:59-0500 Diastolic blood pressure 81 mm[Hg] Bri Sánchez MD Work Phone: [facility] 04-05-2022 08:59-0500 Heart rate 73 /min Bri Sánchez MD Work Phone: [facility] 04-05-2022 08:59-0500 Respiratory rate 16 /min Bri Sánchez MD Work Phone: [facility] 04-05-2022 08:59-0500 SaO2% (BldA) [Mass fraction] 98 % Bri Sánchez MD Work Phone: [facility] 04-05-2022 08:59-0500 Systolic blood pressure 118 mm[Hg] Bri Sánchez MD Work Phone: [facility] 01-29-2022 10:21-0400 Body weight 77.56 kg Shine Neal MD Work Phone: [facility] 01-29-2022 10:21-0400 Diastolic blood pressure 64 mm[Hg] Shine Neal MD Work Phone: [facility] 01-29-2022 10:21-0400 Systolic blood pressure 108 mm[Hg] Shine Neal MD Work Phone: [facility] 10-16-2021 08:01-0400 Body height 157.5 cm Jes Plotts HUNTER TRAPPER.CNM Work Phone: [facility] 10-16-2021 08:01-0400 Body weight 77.56 kg Jes Plotts HUNTER TRAPPER.CNM Work Phone: [facility] 10-16-2021 08:01-0400 Diastolic blood pressure 70 mm[Hg] Jes Plotts HUNTER TRAPPER.CNM Work Phone: [facility] 10-16-2021 08:01-0400 Systolic blood pressure 108 mm[Hg] Jes Plotts HUNTER TRAPPER.CNM Work Phone: [facility] 04-13-2021 08:10-0500 Body height 157.5 cm Bri Sánchez MD Work Phone: [facility] 04-13-2021 08:10-0500 Body mass index (BMI) [Ratio] 29.26 kg/m2 Bri Sánchez MD Work Phone: [facility] 04-13-2021 08:10-0500 Body temperature 97.59 [degF] Bri Sánchez MD Work Phone: [facility] 04-13-2021 08:10-0500 Body weight 72.58 kg Bri Sánchez MD Work Phone: [facility] 04-13-2021 08:10-0500 Diastolic blood pressure 81 mm[Hg] Bri Sánchez MD Work Phone: [facility] 04-13-2021 08:10-0500 Heart rate 65 /min Bri Sánchez MD Work Phone: [facility] 04-13-2021 08:10-0500 Respiratory rate 16 /min Bri Sánchez MD Work Phone: [facility] 04-13-2021 08:10-0500 SaO2% (BldA) [Mass fraction] 98 % Bri Sánchez MD Work Phone: [facility] 04-13-2021 08:10-0500 Systolic blood pressure 134 mm[Hg] Bri Sánchez MD Work Phone: [facility] Encounters Encounter Date Encounter Type Care Provider Facility Start: 03-08-2025 End: 03-08-2025 ambulatory CECILE A SUPPAN Facility:[facility] Start: 03-06-2025 End: 03-06-2025 ambulatory [facility] Facility:[facility] Start: 02-20-2025 End: 02-20-2025 [facility] Facility:[facility] Start: 02-20-2025 End: 02-20-2025 ambulatory CECILE A SUPPAN Facility:[facility] Start: 02-06-2025 End: 02-06-2025 Emergency department patient visit [facility] Start: 01-10-2025 End: 01-10-2025 Orders Only Adriane Gonzales MD Work Phone: Cardiology Comment on above: PFO (patent foramen ovale) (HCC) (Primary Dx) Start: 01-09-2025 ambulatory UNKNOWN PROVIDER Facili ty:[facility] Start: 01-09-2025 End: 01-09-2025 Subsequent hospital visit by physician [facility] Radiology Comment on above: Other chest pain [R0 7.89] Start: 01-01-2025 End: 01-04-2025 Refill Cecile A Suppan HUNTER TRAPPER.CATERING ADMINISTRATIVE ASSISTANT Work Phone: [facility] [place] Comment on above: Refill Request Start: 12-26-2024 End: 12-26-2024 ambulatory Cecile A Suppan HUNTER TRAPPER.CATERING ADMINISTRATIVE ASSISTANT Work Phone: [facility] [place] Comment on above: Further issues with my symptoms Start: 12-14-2024 End: 12-14-2024 Office outpatient visit 15 minutes Cecilerenee Luis BOB Work Phone: [facility] [place] Comment on above: Migraine without aur a and without status migrainosus, not intractable; Difficulty sleeping Start: 12-14-2024 End: 12-14-2024 ambulatory CECILE Sera KAROLYN Facility:[facility] Start: 12-12-2024 ambulatory FLAVIO NAVARRETE Facility: [facility] Start: 12-12-2024 End: 12-12-2024 Subsequent hospital visit by physician [facility] Work Phone: Radiology Comment on above: Cerebral infarction, unspecified mechanism (HCC) [I63.9] Start: 12-10-2024 End: 12-10-2024 ambulatory Flavio Navarrete MD Work Phone: [facility] Comment on above: Abnormal results Start: 12-10-2024 End: 12-10-2024 Telephone encounter Flavio Navarrete MD Work Phone: [facility] Comment on above: Results Start: 12-05-2024 End: 12-05-2024 Emergency department patient visit CECILE Sera YUDYBRAYDON Facility:[facility] Start: 12-05-2024 End: 12-10-2024 Follow-up encounter Adriane Gonzales MD Work Phone: Cardiology Start: 12-05-2024 End: 12-05-2024 ambulatory CECILE LUIS Facility:[facility] Start: 12-05-2024 End: 12-05-2024 ambulatory MUNIR De La [facility] Facility:[facility] Start: 12-03-2024 End: 12-03-2024 Orders Only Adriane Gonzales MD Work Phone: Cardiology Comment on above: Chest pain, unspecif ied type (Primary Dx) Start: 11-22-2024 End: 11-22-2024 ambulatory FLAVIO NAVARRETE Facility:[facility] Start: 11-22-2024 End: 11-23-2024 Follow-up encounter Flavio Navarrete MD Work Phone: [facility] Start: 11-22-2024 End: 11-22-2024 Subsequent hospital visit by physician Us Oswald Main Work Phone: Radiology Comment on above: Cerebral infarction, unspecified mechanism (HCC) [I63.9] Start: 11-22-2024 End: 11-22-2024 ambulatory [facility] Work Phone: Cardiology Comment on above: Event (Zio patch) Start: 11-22-2024 End: 11-22-2024 Office outpatient new 60 minutes Flavio Navarrete MD Work Phone: [facility] Comment on above: History of ischemic stroke (Primary Dx); Cerebral infarction, unspecified mechanism (HCC); Other migraine without status migrainosus, not intractable; Thunderclap headache; Visual disturbance; Abnormal brain MRI Start: 11-22-2024 End: 11-22-2024 ambulatory ARA COX Facility:[facility] Start: 11-19-2024 End: 11-20-2024 Get Medical Advice Cecile Luis APRN.CATERING ADMINISTRATIVE ASSISTANT Work Phone: [facility] [place] Comment on above: Refill on FLUoxetine 20 mg capsule Refill Request Start: 11-16-2024 End: 11-21-2024 Telephone encounter Flavio Navarrete MD Work Phone: Neurology Comment on above: Imaging/Records Start: 11-14-2024 End: 11-14-2024 ambulatory ARA COX Facility:[facility] Start: 11-14-2024 End: 11-14-2024 Subsequent hospital visit by physician [facility] (I-Stat/1.5t) Work Phone: Radiology Comment on above: Visual field loss [H 53.40] Start: 11-12-2024 End: 11-12-2024 Emergency department patient visit CECILE LUIS [facility] Emergency Medicine Comment on above: Vision disturbance ( Primary Dx) Start: 11-12-2024 End: 11-12-2024 Emergency department patient visit CECILE LUIS Facility:[facility] Start: 11-12-2024 End: 11-12-2024 Patient encounter procedure Natalio Hernandez Ranjith DO Work Phone: Ophthalmology Comment on above: Visual field loss (P rimary Dx) Start: 11-12-2024 End: 11-12-2024 ambulatory NATALIO Hernandez RANJITH Facility:[facility] Start: 11-09-2024 End: 01-09-2025 Follow-up encounter Cecile Luis HUNTER TRAPPER.CATERING ADMINISTRATIVE ASSISTANT Work Phone: [facility] [place] Start: 11-09-2024 End: 11-09-2024 Patient encounter procedure Ara Cox MD Work Phone: Ophthalmology Comment on above: Visual field loss (P rimary Dx) Start: 11-09-2024 End: 11-09-2024 ambulatory ARA COX Facility:[facility] Start: 11-08-2024 End: 11-08-2024 Emergency department patient visit CECILE LUIS [facility] Emergency Medicine Comment on above: Acute nonintractable headache, unspecified headache type (Primary Dx); Homonymous hemianopia, unspecified laterality; Vision changes; Left against medical advice Start: 11-08-2024 End: 11-08-2024 Subsequent hospital visit by physician [facility] [place] Work Phone: Radiology Comment on above: Bilateral hand pain [M79.641, M79.642] Start: 11-08-2024 End: 11-08-2024 ambulatory CECILE LUIS Facility:[facility] Start: 11-08-2024 End: 11-08-2024 Office outpatient visit 25 minutes Cecile Luis HUNTER TRAPPER.CATERING ADMINISTRATIVE ASSISTANT Work Phone: [facility] [place] Comment on above: Gastroesophageal ref lux disease with esophagitis, unspecified whether hemorrhage (Primary Dx); Migraine without aura and without status migrainosus, not intractable; Bilateral hand pain; Esophageal spasm; Numbness Start: 11-08-2024 End: 11-08-2024 ambulatory CECILE LUIS Facility:[facility] Start: 11-07-2024 End: 11-07-2024 Emergency department patient visit Dr. Rj Jo DO Work Phone: -Emergency Department Work Phone: Start: 11-07-2024 End: 11-07-2024 Emergency department patient visit PHYSICIAN NIEVES [facility] Start: 10-30-2024 End: 12-30-2024 Follow-up encounter Munir Allison MD Work Phone: [facility] [place] Start: 10-30-2024 End: 10-30-2024 ambulatory [facility] Facility:[facility] Start: 10-16-2024 End: 10-16-2024 Office outpatient visit 25 minutes Munir Allison MD Work Phone: [facility] [place] Comment on above: Other chest pain (Pr imary Dx) Start: 10-16-2024 End: 10-16-2024 ambulatory [facility] Facility:[facility] Start: 10-11-2024 End: 10-11-2024 Emergency department patient visit PHYSICIAN NIEVES [facility] Start: 10-08-2024 End: 10-08-2024 Refill Munir Allison MD Work Phone: [facility] [place] Comment on above: Refill Request Start: 09-07-2024 ambulatory MUNIR ALLISON Facil ity:[facility] Start: 09-07-2024 End: 09-07-2024 Subsequent hospital visit by physician Us Yang A21 7 Work Phone: Radiology Comment on above: Pain in both hands [ M79.641, M79.642] Start: 08-30-2024 End: 08-30-2024 Emergency department patient visit APOLONIA CHAN EMELY [facility] Start: 08-10-2024 End: 08-10-2024 Refill Kenzie Bowen APRN.CNP Work Phone: [facility] [place] Comment on above: Med Change Request Start: 08-06-2024 End: 08-08-2024 ambulatory Luis Lovett MD Work Phone: Orthopaedics Start: 08-06-2024 End: 08-08-2024 Patient encounter procedure Luis Lovett MD Work Phone: Orthopaedics Comment on above: Outside referral Start: 07-27-2024 End: 07-27-2024 Follow-up encounter Kenzie Bowen APRN.CNP Work Phone: [facility] [place] Comment on above: Results Start: 07-27-2024 End: 07-27-2024 Subsequent hospital visit by physician [facility] [place] Work Phone: Radiology Comment on above: Tail bone pain [M53. 3] Start: 07-27-2024 End: 07-27-2024 ambulatory [facility] Facility:[facility] Start: 07-27-2024 End: 07-27-2024 Office outpatient visit 25 minutes Kenzie Bowen APRN.CNP Work Phone: [facility] [place] Comment on above: Seasonal allergies ( Primary Dx); Left wrist pain; Tail bone pain Start: 07-03-2024 End: 07-03-2024 ambulatory Luis Lovett MD Work Phone: Orthopaedics Comment on above: Ultra sound for elbo w Start: 03-12-2024 End: 03-12-2024 Telephone encounter Lu [facility] Radiology Comment on above: Appointment Start: 03-12-2024 End: 03-12-2024 ambulatory [facility] Facility:[facility] Start: 03-12-2024 End: 03-12-2024 Patient encounter procedure Luis Lovett MD Work Phone: Orthopaedics Comment on above: Ulnar neuropathy at elbow, unspecified laterality (Primary Dx); Pain in both hands; Numbness and tingling Start: 02-16-2024 End: 02-24-2024 Telephone encounter Kenzie Bowen APRN.CATERING ADMINISTRATIVE ASSISTANT Work Phone: [facility] [place] Comment on above: Results (EMG) Start: 02-13-2024 End: 02-13-2024 ambulatory Emg 1000) Work Phone: Neurology Comment on above: EMG Start: 02-13-2024 End: 02-13-2024 Patient encounter procedure Emg 3 Neur Main (Max Weight: 1000) Work Phone: Neurology Start: 02-02-2024 End: 02-02-2024 Patient encounter procedure Kenzie Bowen HUNTER TRAPPER.CATERING ADMINISTRATIVE ASSISTANT Work Phone: [facility] [place] Comment on above: Pain in both hands ( Primary Dx); Numbness and tingling; Skin lesion; Right ear pain; Screening for depression; Encounter for screening examination for other mental health and behavioral disorders Start: 01-28-2024 End: 01-30-2024 ambulatory Kenzie Snellf HUNTER TRAPPER.CATERING ADMINISTRATIVE ASSISTANT Work Phone: [facility] [place] Comment on above: Hand pain Start: 01-03-2024 End: 01-03-2024 Orders Only Gio Richardson DPM Work Phone: [facility] Start: 01-02-2024 End: 01-03-2024 Refill Munir Allison MD Work Phone: [facility] [place] Comment on above: Refill Request Start: 11-03-2023 ambulatory Kenzie Bowen HUNTER TRAPPER.CATERING ADMINISTRATIVE ASSISTANT Work Phone: [facility] [place] Comment on above: Paxcil Start: 10-25-2023 Refill Kenzie Bowen HUNTER TRAPPER.CATERING ADMINISTRATIVE ASSISTANT Work Phone: [facility] [place] Comment on above: Refill Request Start: 10-20-2023 End: 10-20-2023 Office outpatient visit 15 minutes Gio Richardson DPJacqui Work Phone: [facility] Comment on above: Plantar fasciitis, r ight (Primary Dx); Congenital forefoot valgus; Plantar fasciitis, left Start: 10-20-2023 End: 10-20-2023 ambulatory GIO RICHARDSON [facility] Ambulatory Start: 10-06-2023 Refill Kenzie Hayshof HUNTER TRAPPER.CATERING ADMINISTRATIVE ASSISTANT Work Phone: [facility] [place] Comment on above: Refill Request Start: 09-29-2023 End: 09-29-2023 Office outpatient visit 15 minutes Gio Richardson DPJacqui Work Phone: [facility] Comment on above: Plantar fasciitis, r ight [M72.2] (Primary Dx); Heel spur, right; Scar tissue [L90.5] Start: 09-29-2023 End: 09-29-2023 ambulatory GIO RICHARDSON [facility] Ambulatory Start: 09-23-2023 Telephone encounter Kenzie waller APRN.CNP Work Phone: [facility] [place] Comment on above: Results (Labs ) Start: 09-22-2023 End: 09-22-2023 Patient encounter procedure Kenzie Bowen APRN.CNP Work Phone: [facility] [place] Comment on above: Wellness examination (Primary Dx); CARO (generalized anxiety disorder); Irritable bowel syndrome with diarrhea; Fatigue, unspecified type; Groin mass in female; Difficulty sleeping; Dysphagia, unspecified type; Screening cholesterol level; Screening for diabetes mellitus Start: 09-22-2023 End: 09-22-2023 Patient encounter status Kenzei Bowen APRN.CATERING ADMINISTRATIVE ASSISTANT Work Phone: [facility] Work Phone: Start: 09-19-2023 Orders Only Gio Richardson DPM Work Phone: [facility] Comment on above: Plantar fasciitis, r ight (Primary Dx); Scar tissue Start: 09-10-2023 Refill Kenzie Bowen APRN.CNP Work Phone: [facility] [place] Comment on above: Refill Request Start: 09-01-2023 End: 09-05-2023 ambulatory [facility] Start: 09-01-2023 End: 09-01-2023 Office outpatient visit 15 minutes Gio Richardson DPM Work Phone: [facility] Comment on above: Heel spur, right (Pr imary Dx); Plantar fasciitis, right [M72.2]; Scar tissue [L90.5] Start: 09-01-2023 End: 09-01-2023 ambulatory [facility] Start: 08-11-2023 End: 08-11-2023 Patient encounter procedure Kenzie Bowen APRN.CATERING ADMINISTRATIVE ASSISTANT Work Phone: [facility] [place] Comment on above: CARO (generalized anx iety disorder) (Primary Dx); Difficulty sleeping Start: 05-05-2023 End: 05-05-2023 Postop follow up visit related to original px Gio Richardson DPM Work Phone: [facility] Comment on above: Plantar fasciitis (P rimary Dx); Scar tissue Start: 05-05-2023 End: 05-05-2023 ambulatory BRI [facility] Start: 04-07-2023 End: 04-07-2023 ambulatory BRI [facility] Start: 03-31-2023 Orders Only Lennox fields DPM Work Phone: [facility] Start: 03-25-2023 End: 03-25-2023 Postop follow up visit related to original px Gio Richardson DPM Work Phone: [facility] Comment on above: Postop check (Primar y Dx) Start: 03-25-2023 End: 03-25-2023 ambulatory GIO RICHARDSON [facility] Ambulatory Start: 03-11-2023 End: 03-11-2023 Postop follow up visit related to original px Gio Richardson DPM Work Phone: [facility] Comment on above: Postop check (Primar y Dx); Heel spur, right Start: 03-11-2023 End: 03-15-2023 [facility] Start: 03-09-2023 End: 03-09-2023 ambulatory GIO PENDLETON RICHARDSON [facility] Start: 03-01-2023 Encounter for other preprocedural examination MANISHA FARIAS [facility] Start: 03-01-2023 Preprocedural examin ation done Gio Richardson DPM Work Phone: [facility] Work Phone: Start: 03-01-2023 End: 03-05-2023 Encounter for other preprocedural examination GIO [facility] Start: 03-01-2023 End: 03-05-2023 ambulatory GIO [facility] Start: 02-25-2023 End: 03-01-2023 ambulatory [facility] Start: 02-21-2023 End: 02-25-2023 ambulatory [facility] Richardson DPM [facility] Comment on above: Plantar fasciitis, r ight (Primary Dx); Heel spur, right Start: 02-17-2023 End: 02-21-2023 ambulatory GIO [facility] Start: 02-10-2023 End: 02-10-2023 Office outpatient visit 15 minutes Gio Richardson DPM Work Phone: [facility] Comment on above: Plantar fasciitis, r ight (Primary Dx); Heel spur, right Start: 02-10-2023 End: 02-10-2023 ambulatory BRI SÁNCHEZ [facility] Start: 01-27-2023 Refill Bri Sánchez MD Work Phone: [facility] Comment on above: Anxiety Start: 01-13-2023 End: 01-13-2023 Office outpatient new 30 minutes Gio Pendleton Michelle DPM Work Phone: [facility] Comment on above: Plantar fasciitis (P rimary Dx); Plantar fasciitis, right; Heel spur, right Start: 01-13-2023 End: 01-17-2023 ambulatory [facility] Start: 12-29-2022 Refill Bri Sánchez MD Work Phone: [facility] Comment on above: Anxiety Start: 11-03-2022 Refill Bri Sánchez MD Work Phone: [facility] Comment on above: Anxiety Start: 06-08-2022 Orders Only Bri Sánchez MD Work Phone: [facility] Comment on above: RLQ abdominal pain ( Primary Dx) Start: 05-18-2022 End: 05-18-2022 Office outpatient visit 25 minutes Bri Sánchez MD Work Phone: [facility] Comment on above: Dizziness (Primary D x); Chest pain, unspecified type; Anxiety Start: 04-09-2022 Orders Only Bri Sánchez MD Work Phone: [facility] Start: 04-05-2022 End: 04-05-2022 Office outpatient visit 25 minutes Bri Sánchez MD Work Phone: [facility] Comment on above: Anxiety (Primary Dx) Start: 01-29-2022 End: 01-29-2022 Patient encounter procedure Shine Neal MD Work Phone: OB/Gynecology Comment on above: Encounter for IUD re moval (Primary Dx) Start: 01-20-2022 Telephone encounter Shine diop MD Work Phone: OB/Gynecology Comment on above: Orders Start: 11-18-2021 Refill Kenzie Bowen HUNTER TRAPPER.CATERING ADMINISTRATIVE ASSISTANT Work Phone: [facility] [place] Comment on above: Refill Request Start: 10-20-2021 Telephone encounter Jes lawrence HUNTER TRAPPER.CNM Work Phone: OB/Gynecology Comment on above: Results Start: 10-16-2021 End: 10-16-2021 Patient encounter procedure Jes Arteaga HUNTER TRAPPER.CNM Work Phone: OB/Gynecology Comment on above: Encounter for gyneco logical examination (general) (routine) without abnormal findings (Primary Dx); Vaginal discharge Start: 10-16-2021 End: 10-16-2021 Patient encounter status Jes Arteaga HUNTER TRAPPER.CNM Work Phone: OB/Gynecology Start: 04-13-2021 End: 04-13-2021 Office outpatient new 30 minutes Bri Sánchez MD Work Phone: [facility] Comment on above: Anxiety (Primary Dx) ; Overweight (BMI 25.0-29.9) Start: 10-15-2020 End: 10-15-2020 Documentation procedure Kuldeep Jassi PT [facility] Start: 10-06-2020 End: 10-06-2020 ambulatory Adriane Cedeño CATERING ADMINISTRATIVE ASSISTANT Work Phone: [facility] Comment on above: Patellofemoral pain syndrome of right knee Start: 09-25-2020 End: 09-29-2020 ambulatory ADRIANE CEDEÑO [facility] Start: 09-25-2020 End: 09-25-2020 Office outpatient new 20 minutes Adriane Cedeño CATERING ADMINISTRATIVE ASSISTANT Work Phone: [facility] [place] Comment on above: Patellofemoral pain syndrome of right knee (Primary Dx) Procedures Date Procedure Procedure Detail Performing Clinician Start: 01-09-2025 Cta hrt cornry art/b ypass grfts contrst 3d post Donald Mcmahon MD Work Phone: Start: 11-22-2024 Transcran doppler in tracran art microbubble inj Flavio Navarrete MD Work Phone: Start: 11-14-2024 Mri brain brain stem w/o w/contrast material Ara Cox MD Work Phone: Start: 11-12-2024 Visual field xm uni/ bi w/interp extended exam Natalio Hernandez Ranjith DO Work Phone: Start: 11-09-2024 End: 11-09-2024 Visual field xm uni/bi w/interp extended exam Ara Cox MD Work Phone: Start: 11-08-2024 Ecg routine ecg w/le ast 12 lds trcg only w/o i&r Maxi Castrejon PA-C Work Phone: Start: 11-08-2024 Mri brain brain stem w/o w/contrast material Maxi Castrejon PA-C Work Phone: Start: 11-08-2024 End: 11-08-2024 Comprehensive metabolic panel Maxi Castrejon PA-C Work Phone: Start: 11-08-2024 Ct head/brain w/o co ntrast material Moe Sanchez DO Work Phone: Start: 11-08-2024 POCT GLUCOSE METER Zandra Castrejon PA-C Work Phone: Start: 11-07-2024 X-ray of chest, PA a nd lateral views Dr. Rj Jo DO Work Phone: Start: 11-07-[address] Rj Jo DO Work Phone: Start: 09-07-2024 Us lmtd joint/oth no nvasc xtr strux r-t w/img Luis Lovett MD Work Phone: Start: 07-27-2024 Radex sacrum & coccy x minimum 2 views Kenzie Bowen HUNTER TRAPPER.CATERING ADMINISTRATIVE ASSISTANT Work Phone: Start: 02-13-2024 Nerve conduction josselin dies 5-6 studies Kenzie Bowen HUNTER TRAPPER.CATERING ADMINISTRATIVE ASSISTANT Work Phone: Start: 02-02-2024 Adult depression scr eening assessment Kenzie Bowen HUNTER TRAPPER.CATERING ADMINISTRATIVE ASSISTANT Work Phone: Start: 10-20-2023 NURSING COMMUNICATIO N- RITUXAN REACTION Gio Richardson DPM Work Phone: Start: 03-11-2023 Radex foot complete minimum 3 views Gio Richardson DPM Work Phone: Start: 04-05-2022 Adult depression scr eening assessment Gio Richardson DPM Work Phone: Start: 01-26-2021 Adult depression scr eening assessment Jes Arteaga HUNTER TRAPPER.CNM Work Phone: Start: 09-25-2020 Arthrocentesis aspir &/inj major jt/bursa w/o us Adriane Cedeño CATERING ADMINISTRATIVE ASSISTANT Work Phone: Start: 06-12-2020 Microscopic observat ion [Identifier] in Cervix by Cyto stain Bri Sánchez MD Work Phone: Plan of Treatment Date Care Activity Detail Author Start: 2044 Zoster Vaccines (1 of 2) Zoster Vaccines (1 of 2) [facility] Start: 02-24-2030 DTaP/Tdap/Td Vaccines (3 - Td or Tdap) DTaP/Tdap/Td Vaccines (3 - Td or Tdap) [facility] Start: 02-24-2030 Tetanus vaccination Tetanus: Every 10yrs [facility] Start: 02-24-2030 Urine microalbumin profile [facility] Start: 04-01-2025 End: 12-22-2025 MR Brain WO and W contrast IV MRI BRAIN WO/W IVCON Radiology Routine Cerebral infarction, unspecified mechanism (HCC) Expected: 04/01/2025, Expires: 12/22/2025 [facility] Comment on above: Expected: 04/01/2025, Expires: Start: 02-19-2025 End: 02-19-2025 Patient encounter procedure 02/19/2025 10:00 AM EDT Office Visit Neurology [address] [id number] Stu Wang, [address] [id number] Constant head aches recommend by neurologist Neurology Comment on above: Constant head aches recommend by neurolo gist Start: 02-01-2025 Anxiety Screening Anxiety Screening [facility] Start: 02-01-2025 Depression Screening Depression Screening [facility] Start: 01-23-2025 End: 01-23-2025 Patient encounter procedure 01/23/2025 11:00 AM EDT Office Visit Neurology [address] [place] [address] Stu Wang, [address] [place] [address] Constant head aches recommend by neurologist Neurology Comment on above: Constant head aches recommend by neurolo gist Start: 01-10-2025 End: 01-10-2025 ambulatory 01/10/2025 4:20 PM EDT [facility] [address] [place] [address] Cecile Luis APRN.CATERING ADMINISTRATIVE ASSISTANT [address] [place], [place] [id number] Dizzy memory loss [facility] Comment on above: Dizzy memory loss Start: 01-09-2025 End: 01-09-2025 Patient encounter procedure Radiology Comment on above: dx: Other chest pain 18G IV NURSES AWARE Anomalous Coronary Arteriesdx: Other chest pain Start: 12-31-2024 Influenza vaccination Influenza Vaccine (#1) [facility] Start: 12-21-2024 End: 12-21-2024 Patient encounter procedure 12/21/2024 4:00 PM EDT Office Visit [facility] [address] [place], [place] [address] Cecile Luis APRN.CATERING ADMINISTRATIVE ASSISTANT [address] [place], [place] [id number] 6 week follow up headache, GERD, numbness and joint pain [facility] Comment on above: 6 week follow up headache, GERD, numbnes s and joint pain Start: 12-14-2024 End: 12-14-2024 Patient encounter procedure 12/14/2024 2:40 PM EDT Office Visit [facility] [address] [place] [address] Cecile Luis APRN.CATERING ADMINISTRATIVE ASSISTANT [address] [place], [place] [address] 6 week follow up headache, GERD, numbness and joint pain [facility] Comment on above: 6 week follow up headache, GERD, numbnes s and joint pain Start: 12-12-2024 End: 12-12-2024 Patient encounter procedure 12/12/2024 10:40 AM EDT Appointment Cat Scan [address] [place], [place] [id number] CTV HEAD W IVCON Cat [facility] Comment on above: CTV HEAD W IVCON Start: 12-12-2024 End: 12-12-2024 Patient encounter procedure 12/12/2024 9:15 AM EDT Appointment Radiology [address] [place] [address] Cerebral infarction, unspecified mechanism (HCC) [I63.9] Radiology Comment on above: Cerebral infarction, unspecified mechani sm (HCC) [I63.9] Start: 12-05-2024 End: 12-05-2024 Patient encounter procedure 12/05/2024 9:30 AM EDT Office Visit Cardiology [address] [place] [address] Adriane Gonzales MD [address] [place], [place] [phone] dx: Other chest pain Cardiology Comment on above: dx: Other chest pain Start: 12-05-2024 End: 12-05-2024 ambulatory 12/05/2024 8:45 AM EDT Procedure Cardiology [address] [place] [address] dx: Other chest pain Cardiology Comment on above: dx: Other chest pain Start: 12-05-2024 End: 12-05-2024 Patient encounter procedure 12/05/2024 7:15 AM EDT Office Visit OB/Gynecology [address] [place] [address] Deepa Jerome APRN.CATERING ADMINISTRATIVE ASSISTANT [address] [place] [address] for exam, also wondering if I m starting [facility] Comment on above: for exam, also wondering if I m star ting [facility] Start: 11-22-2024 End: 02-21-2025 B 2 GPI IGG & IGM [facility] Comment on above: Expected: 11/22/2024, Expires: Start: 11-22-2024 End: 02-21-2025 Hemoglobin A1c in Blood [facility] Comment on above: Expected: 11/22/2024, Expires: Start: 11-22-2024 End: 02-21-2025 HYPERCOAG DIAG PNL [facility] Comment on above: Expected: 11/22/2024, Expires: Start: 11-22-2024 End: 02-21-2025 Lipid 1996 panel - Serum or Plasma [facility] Comment on above: Expected: 11/22/2024, Expires: Start: 11-22-2024 End: 11-22-2024 Patient encounter procedure 11/22/2024 12:00 PM EDT Office Visit [facility] [address] [place] [phone] Flavio Navarrete MD [address] [place], [place] [phone] stroke work up /right Homonymous hemianopsia referred by dr ara cox [facility] Comment on above: stroke work up /right Homonymous hemiano psia referred by dr ara cox Start: 11-20-2024 End: 11-20-2024 Patient encounter procedure 11/20/2024 3:30 PM EDT Office Visit [facility] [address] [phone] Reyes Oliveira DO [address] [facility], [address] [place] [address] [facility] Start: 11-15-2024 End: 11-15-2024 Patient encounter procedure 11/15/2024 8:15 AM EDT Office Visit OB/Gynecology [address] [place] [address] Deepa Jerome APRN.CATERING ADMINISTRATIVE ASSISTANT [address] [place] [address] for exam, also wondering if I m starting [facility] Comment on above: for exam, also wondering if I m star ting [facility] Start: 11-08-2024 End: 02-07-2025 Cobalamin (Vitamin B12) [Mass/volume] in Serum or Plasma [facility] Comment on above: Expected: 11/08/2024, Expires: Start: 11-08-2024 End: 02-07-2025 Comprehensive metabolic 2000 panel - Serum or Plasma [facility] Comment on above: Expected: 11/08/2024, Expires: Start: 11-08-2024 End: 02-07-2025 Creatine kinase [Enzymatic activity/volume] in Serum or Plasma [facility] Comment on above: Expected: 11/08/2024, Expires: Start: 11-08-2024 End: 02-07-2025 Magnesium [Mass/volume] in Serum or Plasma [facility] Comment on above: Expected: 11/08/2024, Expires: Start: 11-08-2024 End: 02-07-2025 Thyrotropin [Units/volume] in Serum or Plasma [facility] Comment on above: Expected: 11/08/2024, Expires: Start: 11-07-2024 [facility] Start: 10-30-2024 End: 10-30-2024 Patient encounter procedure 10/30/2024 8:00 AM EDT Office Visit Cardiology [address] [place], [place] [phone] Dx: Other chest pain [R07.89] Cardiology Comment on above: Dx: Other chest pain [R07.89] Start: 10-02-2024 End: 10-02-2024 Patient encounter procedure 10/02/2024 8:00 AM EDT Office Visit [facility] [address] [place] [phone] Rebecca Fernandes APRN.CATERING ADMINISTRATIVE ASSISTANT [address] [place], [place] [phone] Wellness exam Family [facility] Comment on above: Wellness exam Start: 09-21-2024 Covid-19 Vaccine () Covid-19 Vaccine () [facility] Comment on above: Postponed from 12/31/2022 (Declined at t his time) Start: 09-21-2024 Hepatitis B Vaccine (1 of 3 - 19+ 3-dose series) Hepatitis B Vaccine (1 of 3 - 19+ 3-dose series) [facility] Comment on above: Postponed from 2013 (Declined at t his time) Start: 09-21-2024 End: 09-21-2024 Patient encounter procedure 09/21/2024 8:20 AM EDT Office Visit [facility] [place] [address] [place], [place] [address] Kenzie Bowen, MAGDALENO.CATERING ADMINISTRATIVE ASSISTANT [address] [place] [address] Wellness exam [facility] Comment on above: Wellness exam Start: 09-07-2024 End: 09-07-2024 Patient encounter procedure 09/07/2024 8:15 AM EDT Appointment Radiology [address] [address] US ELBOW RT+LT; MEDIAL-EVAL BILATERAL ULNAR NERVES. Radiology Comment on above: US ELBOW RT+LT; MEDIAL-EVAL BILATERAL UL LINDA NERVES. Start: 08-01-2024 End: 08-01-2024 Patient encounter procedure 08/01/2024 7:15 AM EDT Appointment Radiology [address] [place], [place] [id number] US ELBOW RT+LT; MEDIAL-EVAL BILATERAL ULNAR NERVES. Radiology Comment on above: US ELBOW RT+LT; MEDIAL-EVAL BILATERAL UL LINDA NERVES. Start: 04-26-2024 End: 04-26-2024 Patient encounter procedure 04/26/2024 10:15 AM EST Appointment Radiology [address] [address] US ELBOW RT+LT; MEDIAL-EVAL BILATERAL ULNAR NERVES. TIME SLOT ALLOTMENT OK'D BY DM VIA STAFF MSG Radiology Comment on above: US ELBOW RT+LT; MEDIAL-EVAL BILATERAL UL LINDA NERVES. TIME SLOT ALLOTMENT OK'D BY DM VIA STAFF MSG Start: 03-12-2024 End: 03-12-2024 Patient encounter procedure 03/12/2024 8:15 AM EST Office Visit Orthopaedics [address] [place] [address] Luis Lovett MD [address] [place] [address] Pain in both hands [M79.641, M79.642]; Numbness and tingling [R20.0, R20.2] Orthopaedics Comment on above: Pain in both hands [M79.641, M79.642]; N umbness and tingling [R20.0, R20.2] Start: 02-13-2024 End: 02-13-2024 ambulatory 02/13/2024 1:00 PM EDT Procedure Neurology [address] [place] [address] EMG(NEURO/NI) [EEGLIMB] Neurology Comment on above: EMG(NEURO/NI) [EEGLIMB] Start: 02-02-2024 End: 05-03-2024 C reactive protein [Mass/volume] in Serum or Plasma [facility] Comment on above: Expected: 02/02/2024, Expires: Start: 02-02-2024 End: 05-03-2024 Erythrocyte sedimentation rate [facility] Work Phone: Comment on above: Expected: 02/02/2024, Expires: Start: 02-02-2024 End: 05-03-2024 Nuclear Ab [Presence] in Serum by Immunoassay [facility] Comment on above: Expected: 02/02/2024, Expires: 5 Start: 02-02-2024 End: 05-03-2024 Rheumatoid factor [Units/volume] in Serum or Plasma [facility] Comment on above: Expected: 02/02/2024, Expires: Start: 02-02-2024 End: 02-02-2024 Patient encounter procedure 02/02/2024 7:00 AM EDT Office Visit [facility] [place] [address] [place] [address] Kenzie Bowen APRN.CATERING ADMINISTRATIVE ASSISTANT [address] [place] [address] Hand pain, and spot on my nose that keeps bleeding [facility] Comment on above: Hand pain, and spot on my nose that keep s bleeding Start: 01-01-2024 Covid-19 Vaccine ( season) Covid-19 Vaccine () [facility] Start: 01-01-2024 Covid-19 Vaccine () Covid-19 Vaccine () [facility] Start: 01-01-2024 Influenza vaccination [facility] Start: 12-08-2023 End: 12-08-2023 Patient encounter procedure 12/08/2023 8:30 AM EDT Office Visit [facility] [address] [place] [address] Gio Richardson, BEN [address] [place] [address] [facility] Start: 10-27-2023 End: 10-27-2023 Patient encounter procedure 10/27/2023 8:15 AM EDT Office Visit [facility] [address] [place] [address] Gio Richardson DPM [address] [place] [address] [facility] Start: 09-29-2023 End: 09-29-2023 Patient encounter procedure 09/29/2023 8:30 AM EDT Office Visit [facility] [address] [place] [address] Gio Richardson DPM [address] [place] [address] [facility] Start: 09-22-2023 End: 12-22-2023 25-hydroxyvitamin D3 [Mass/volume] in Serum or Plasma [facility] Comment on above: Expected: 09/22/2023, Expires: Start: 09-22-2023 End: 12-22-2023 CBC W Auto Differential panel - Blood [facility] Comment on above: Expected: 09/22/2023, Expires: Start: 09-22-2023 End: 12-22-2023 Cobalamin (Vitamin B12) [Mass/volume] in Serum or Plasma [facility] Comment on above: Expected: 09/22/2023, Expires: Start: 09-22-2023 End: 12-22-2023 Comprehensive metabolic 2000 panel - Serum or Plasma [facility] Work Phone: Comment on above: Expected: 09/22/2023, Expires: Start: 09-22-2023 End: 12-22-2023 Ferritin [Mass/volume] in Serum or Plasma [facility] Comment on above: Expected: 09/22/2023, Expires: Start: 09-22-2023 End: 12-22-2023 Hemoglobin A1c in Blood [facility] Comment on above: Expected: 09/22/2023, Expires: Start: 09-22-2023 End: 12-22-2023 Iron and Iron binding capacity panel - Serum or Plasma [facility] Comment on above: Expected: 09/22/2023, Expires: Start: 09-22-2023 End: 12-22-2023 Lipid 1996 panel - Serum or Plasma [facility] Comment on above: Expected: 09/22/2023, Expires: Start: 09-22-2023 End: 12-22-2023 Thyrotropin [Units/volume] in Serum or Plasma [facility] Comment on above: Expected: 09/22/2023, Expires: Start: 09-22-2023 End: 12-22-2023 Thyroxine (T4) free [Mass/volume] in Serum or Plasma [facility] Comment on above: Expected: 09/22/2023, Expires: Start: 09-22-2023 End: 09-22-2023 Patient encounter procedure 09/22/2023 8:00 AM EDT Office Visit [facility] [address] [place] [address] Kenzie Bowen APRN.CATERING ADMINISTRATIVE ASSISTANT [address] [place] [address] Wellness exam [facility] Comment on above: Wellness exam Start: 09-01-2023 End: 08-31-2024 XR Foot - right 2 Views XR Calcaneus Right 2+ Views (Standard) Imaging Routine Heel spur, right Expected: 09/01/2023, Expires: 08/31/2024 [facility] Work Phone: Comment on above: Expected: 09/01/2023, Expires: Start: 06-16-2023 End: 06-16-2023 Patient encounter procedure 06/16/2023 8:30 AM EST Office Visit [facility] [address] [place] [address] Gio Richardson, BEN [address] [place] [address] [facility] Start: 06-12-2023 PAP TESTING PAP TESTING [facility] Start: 06-12-2023 Screening for malignant neoplasm of cervix [facility] Start: 04-07-2023 End: 04-07-2023 Patient encounter procedure 04/07/2023 8:00 AM EST Office Visit [facility] [address] [address] Gio Richardson, BEN [address] [place] [address] [facility] Start: 04-05-2023 Depression screening using PHQ-9 (Patient Health Questionnaire 9) score [facility] Start: 03-25-2023 End: 03-25-2023 Patient encounter procedure 03/25/2023 2:30 PM EST Office Visit [facility] [address] [place] [address] Gio Richardson DPM [address] [place] [address] [facility] Physician [facility] Start: 03-11-2023 End: 03-11-2023 ambulatory 03/11/2023 7:00 AM EST Treatment [facility] [address] [place] [address] Gio Richardson, BEN [address] [place] [address] Tevin Walden PTA [facility] Start: 03-10-2023 End: 03-10-2023 Patient encounter procedure 03/10/2023 8:00 AM EST Office Visit [facility] [address] [place] [address] Gio Richardson, BEN [address] [place] [address] [facility] Physician [facility] Start: 03-09-2023 End: 03-09-2023 Admission to same day surgery center 03/09/2023 11:47 AM EST - 03/09/2023 12:[address] [facility] [address] [place] [address] Gio Richardson, BEN [address] [place] [address] [facility] Comment on above: RESECTION HEEL SPUR Start: 03-09-2023 End: 03-09-2023 RESECTION HEEL SPUR RESECTION HEEL SPUR Heel spur, right 03/09/2023 11:47 AM EST [facility] Start: 03-09-2023 Subsequent hospital visit by physician 03/09/2023 11:47 AM EST Hospital Encounter [facility] [address] [place] [address] Gio Richardson DPM [address] [place] [address] [facility] [place] [facility] Start: 03-07-2023 End: 03-07-2023 ambulatory 03/07/2023 7:00 AM EST Treatment [facility] [address] [place] [address] Gio Richardson DPM [address] [place] [address] Tevin Walden PTA [facility] Start: 03-04-2023 End: 03-04-2023 ambulatory 03/04/2023 7:00 AM EDT [facility] [address] [place] [address] Gio Richardson DPM [address] [place] [address] Tevin Walden PTA [facility] Start: 03-01-2023 End: 03-01-2023 Patient encounter procedure 03/01/2023 1:45 PM EDT Office Visit [facility] [address] [place] [address] Gio Richardson DPM [address] [place] [address] [facility] Start: 03-01-2023 End: 03-01-2023 Patient encounter procedure 03/01/2023 11:30 AM EDT Office Visit [facility] Preadmission Testing [address] [place] [address] Gio Richardson DPM [address] [place] [address] Discharge Disposition: [facility] Preadmission Testing Start: 02-10-2023 End: 02-10-2023 Patient encounter procedure 02/10/2023 8:00 AM EDT Office Visit [facility] [address] [address] Gio Richardson, BEN [address] [place] [address] [facility] Start: 02-03-2023 Depression Remission Assessment (PHQ9) Depression Remission Assessment (PHQ9) [facility] Start: 01-13-2023 End: 01-13-2023 Patient encounter procedure 01/13/2023 3:15 PM EDT Office Visit [facility] [address] [place] [address] Gio Richardson, BEN [address] [place] [address] [facility] Start: 12-31-2022 Covid-19 Vaccine ( season) Covid-19 Vaccine () [facility] Start: 12-31-2022 Influenza vaccination Sequential Influenza Vaccine (#1) [facility] Start: 11-04-2022 Hepatitis C screening Hepatitis C Screening [facility] Comment on above: Postponed from 2012 (Patient Refus ed) Start: 11-04-2022 HIV screening HIV Screening [facility] Comment on above: Postponed from 2009 (Patient Refus ed) Start: 10-16-2022 History and physical examination, annual for health maintenance Wellness Visit [facility] Start: 06-25-2022 End: 06-25-2022 Patient encounter procedure 06/25/2022 Appointment Cardiology Bri Sánchez MD [address] [address] [facility] Start: 06-11-2022 End: 06-11-2022 Patient encounter procedure 06/11/2022 Appointment Cardiology Bri Sánchez MD [address] [address] [facility] Start: 05-18-2022 End: 05-18-2022 Telemedicine consultation with patient 05/18/2022 Telemedicine Telephone Primary Care Bri Sánchez MD [address] [address] [facility] Start: 02-11-2022 Depression Remission Assessment (PHQ9) Depression Remission Assessment (PHQ9) [facility] Start: 01-26-2022 Adult depression screening assessment DEPRESSION SCREENING [facility] Start: 12-31-2021 Influenza vaccination [facility] Start: 10-16-2021 End: 12-16-2021 Microscopic observation [Identifier] in Vaginal fluid by Gram stain BACT/ZAIRA VAG GRAM STAIN Microbiology Routine Vaginal discharge Expected: 10/16/2021, Expires: 12/16/2021 [facility] Work Phone: Comment on above: Expected: 10/16/2021, Expires: Start: 05-13-2021 End: 05-13-2021 Telemedicine consultation with patient 05/13/2021 Telemedicine Telephone Primary Care Bri Sánchez MD [address] [address] [facility] Start: 05-02-2021 DEPRESSION ASSESSMENT DEPRESSION ASSESSMENT [facility] Start: 12-31-2020 Influenza vaccination Sequential Influenza Vaccine (#1) [facility] Start: 11-05-2020 End: 11-05-2020 ambulatory 11/05/2020 Treatment Rehabilitation Adriane Cedeño, NOMI [address] [facility] [address] [place] [address] Kuldeep Keene PT [facility] Start: 10-29-2020 End: 10-29-2020 ambulatory 10/29/2020 Treatment Rehabilitation Adriane Cedeño CNP [address] [place] [address] Kuldeep Keene, PT [facility] Start: 10-27-2020 End: 10-27-2020 ambulatory 10/27/2020 Treatment Rehabilitation Gui Cedeñoitha Meenu, CATERING ADMINISTRATIVE ASSISTANT [address] [place] [address] Tevin Walden, SUPPORT TEAM ASSOC [facility] Start: 10-22-2020 End: 10-22-2020 ambulatory 10/22/2020 Treatment Rehabilitation Adriane Cedeño, CATERING ADMINISTRATIVE ASSISTANT [address] [place] [address] Tevin Walden, SUPPORT TEAM ASSOC [facility] Start: 10-20-2020 End: 10-20-2020 ambulatory 10/20/2020 Treatment Rehabilitation Adriane Cedeño, CATERING ADMINISTRATIVE ASSISTANT [address] [place] [address] Kuldeep Keene, PT [facility] Start: 10-15-2020 End: 10-15-2020 ambulatory 10/15/2020 Treatment Rehabilitation Adriane Cedeño, CATERING ADMINISTRATIVE ASSISTANT [address] [place] [address] Kuldeep Keene, PT [facility] Start: 10-13-2020 End: 10-13-2020 ambulatory 10/13/2020 Treatment Rehabilitation Adriane Cedeño, CATERING ADMINISTRATIVE ASSISTANT [address] [place] [address] Tevin Walden, SUPPORT TEAM ASSOC [facility] Start: 10-09-2020 End: 10-09-2020 ambulatory 10/09/2020 Treatment Rehabilitation Adriane Cedeño, CATERING ADMINISTRATIVE ASSISTANT [address] [place] [address] Kuldeep Keene, PT [facility] Start: 2015 Screening for malignant neoplasm of [facility] Start: 2013 Hepatitis B Vaccine (1 of 3 - 19+ 3-dose series) Hepatitis B Vaccine (1 of 3 - 19+ 3-dose series) [facility] Start: 2013 Hepatitis B Vaccines (1 of 3 - 19+ 3-dose series) Hepatitis B Vaccines (1 of 3 - 19+ 3-dose series) [facility] Start: 2012 Anxiety Screening Anxiety Screening [facility] Start: 2012 Depression Screening Depression Screening [facility] Start: 2012 Hepatitis C screening Hepatitis C Screening [facility] Start: 2009 HIV screening HIV Screening [facility] Start: 2007 Varicella vaccination Varicella Vaccines (1 of 2 - 13+ 2-dose series) [facility] Start: 2006 COVID-19 Vaccine (1) COVID-19 Vaccine (1) [facility] Start: 2006 Depression screening using PHQ-9 (Patient Health Questionnaire 9) score Depression Screening (PHQ9) [facility] Start: 1999 COVID-19 VACCINE (#1) COVID-19 VACCINE (#1) [facility] Start: 1999 COVID-19 Vaccine (1) COVID-19 Vaccine (1) [facility] Start: 1997 History and physical examination, annual for health maintenance Wellness Visit [facility] Start: 1995 MMR Vaccines (1 of 1 - Standard series) MMR Vaccines (1 of 1 - Standard series) [facility] Start: 1994 COVID-19 VACCINE (#1) COVID-19 VACCINE (#1) [facility] Start: 1994 HEPATITIS B (1 of 3 - 3-dose series) HEPATITIS B (1 of 3 - 3-dose series) [facility] Start: 1994 HIV screening HIV Screening [facility] Start: 1994 Lipid panel Lipid Panel [facility] Start: 1994 Screening for malignant neoplasm of cervix Pap Smear [facility] Start: 1994 Yearly Adult Physical Yearly Adult Physical [facility] End: 12-22-2025 CT Neck W contrast IV CTA NECK W IVCON Radiology Routine Cerebral infarction, unspecified mechanism (HCC) 1 Occurrences starting 11/22/2024 until 12/22/2025 [facility] Comment on above: 1 Occurrences starting 11/22/2024 until 12/22/2025 End: 12-22-2025 CTA Head Arteries W contrast IV [facility] Work Phone: Comment on above: 1 Occurrences starting 11/22/2024 until 12/22/2025 ECG 12 lead ECG 12 lead ECG STAT 11/08/2024 9:30 PM EDT [facility] Work Phone: End: 12-03-2025 ECG COMPLETE ECG COMPLETE ECG Routine Chest pain, unspecified type 1 Occurrences starting 12/03/2024 until 12/03/2025 [facility] Work Phone: Comment on above: 1 Occurrences starting 12/03/2024 until 12/03/2025 End: 07-17-2023 Echocardiography Echocardiogram complete Echocardiography Routine Dizziness 1 Occurrences starting 05/18/2022 until 07/17/2023 [facility] Work Phone: Comment on above: 1 Occurrences starting 05/18/2022 until 07/17/2023 End: 10-16-2025 Echocardiography ECHO Cardiology Routine Other chest pain 1 Occurrences starting 10/16/2024 until 10/16/2025 [facility] Work Phone: Comment on above: 1 Occurrences starting 10/16/2024 until 10/16/2025 End: 02-01-2025 EMG(NEURO/NI) EMG(NEURO/NI) EMG Routine Pain in both hands Numbness and tingling 1 Occurrences starting 02/02/2024 until 02/01/2025 [facility] Comment on above: 1 Occurrences starting 02/02/2024 until 02/01/2025 Nursing Communication Nursing Co mmunication Nursing Routine 02/10/2023 8:34 AM EDT [facility] Work Phone: OUTSIDE VENDOR CARDI AC OUTPATIENT EXTENDED RHYTHM RECORDING (WITHOUT TELEMETRY) OUTSIDE VENDOR CARDIAC OUTPATIENT EXTENDED RHYTHM RECORDING (WITHOUT TELEMETRY) Holter Routine Cerebral infarction, unspecified mechanism (HCC) Ordered: 11/22/2024 [facility] Comment on above: Ordered: 11/22/2024 End: 11-08-2024 Pulse oximetry, continuous Pulse oximetry, continuous Respiratory Care STAT Continuous until discontinued starting 11/08/2024 [facility] Work Phone: Comment on above: Continuous until discontinued starting 0 11/08/2024 Removal intrauterine device iud REMOVE INTRAUTERINE DEVICE Procedures Routine Encounter for IUD removal Ordered: 01/21/2022 [facility] Work Phone: Comment on above: Ordered: 01/21/2022 End: 12-22-2025 US Lower extremity vein - bilateral US DVT LOWER BILATERAL Radiology Routine Cerebral infarction, unspecified mechanism (HCC) 1 Occurrences starting 11/22/2024 until 12/22/2025 [facility] Comment on above: 1 Occurrences starting 11/22/2024 until 12/22/2025 US Lower extremity v ein - bilateral US DVT LOWER BILATERAL Radiology Routine Cerebral infarction, unspecified mechanism (HCC) 12/12/2024 9:51 AM EDT [facility] Work Phone: End: 04-11-2025 US Upper extremity - left US ELBOW LEFT Radiology Routine Pain in both hands Numbness and tingling Ulnar neuropathy at elbow, unspecified laterality 1 Occurrences starting 03/12/2024 until 04/11/2025 [facility] Comment on above: 1 Occurrences starting 03/12/2024 until 04/11/2025 End: 04-11-2025 US Upper extremity - right US ELBOW RIGHT Radiology Routine Pain in both hands Numbness and tingling Ulnar neuropathy at elbow, unspecified laterality 1 Occurrences starting 03/12/2024 until 04/11/2025 [facility] Work Phone: Comment on above: 1 Occurrences starting 03/12/2024 until 04/11/2025 End: 12-08-2025 XR Hand - bilateral PA XR HAND/WRIST SURVEY ARTHRITIS 1V PA BILATERAL Radiology Routine Bilateral hand pain 1 Occurrences starting 11/08/2024 until 12/08/2025 [facility] Work Phone: Comment on above: 1 Occurrences starting 11/08/2024 until 12/08/2025 XR Hand - bilateral PA XR HAND/W RIST SURVEY ARTHRITIS 1V PA BILATERAL Radiology Routine Bilateral hand pain 11/08/2024 10:04 AM EDT [facility] Immunizations Immunization Date Immunization Notes Care Provider Fa bonillaty 04-03-2020 influenza, injectabl e, quadrivalent, contains preservative Ejs Plotts HUNTER TRAPPER.CNM Work Phone: [facility] 04-03-2020 influenza, injectabl e, quadrivalent, preservative free Bri Sánchez MD Work Phone: [facility] 04-03-2020 influenza virus vaccine, unspecified formulation Kenzie Bowen HUNTER TRAPPER.CATERING ADMINISTRATIVE ASSISTANT Work Phone: [facility] 02-25-2020 tetanus toxoid, redu vania diphtheria toxoid, and acellular pertussis vaccine, adsorbed Jes Plotts HUNTER TRAPPER.CNM Work Phone: [facility] Work Phone: 01-11-2019 influenza, injectabl e, quadrivalent, contains preservative Jes Plotts HUNTER TRAPPER.CNM Work Phone: [facility] 10-31-2018 tetanus toxoid, redu vania diphtheria toxoid, and acellular pertussis vaccine, adsorbed Jes Plotts HUNTER TRAPPER.CNM Work Phone: [facility] Payers Date Payer Category Payer Self-pay 2023 Managed Care (Private) [facility] [id number] 2023 Private Health Insurance [id number] 2019 Private Health Insurance [id number] 2018 Private Health Insurance [id number] 2018 Private Health Insurance [id number]. [id number] 1994 Unknown [id number] 2.16.840.1.799103.3.579. 2.903 1994 Unknown [id number] 2.16.840.1.415157.3.579. 2. 1994 Unknown [id number] 2.16.840.1.753707.3.579. 2. 1994 Unknown [id number] 2.16840.1.404231.3.579. 2. 1994 Unknown [id number] 2.16840.1.786159.3.579. 2 1994 Unknown [id number] 2.16840.1.467517.3.579. 2. 1994 Unknown [id number] 2.16840.1.033249.3.579. 2. 1994 Unknown [id number] 2.16840.1.688848.3.579. 2. 1994 Unknown [id number] 2.16.840.1.528877.3.579. 2. 1994 Unknown [id number] 2.16.840.1.006455.3.579. 2. 1994 Unknown [id number] 2.16840.1.389340.3.579. 2. 1994 Unknown [id number] 2.16.840.1.923148.3.579. 2. 1994 Unknown [id number] 2.16.840.1.197749.3.579. 2.90 1994 Unknown [id number] 2.16840.1.763336.3.579. 2. 1994 Unknown [id number] 2.16.840.1.945776.3.579. 2.903 1994 Unknown [id number] 2.16.840.1.891308.3.579. 2.903 1994 Unknown [id number] 2.16.840.1.040842.3.579. 2.903 1994 Unknown [id number] 2.16.840.1.758013.3.579. 2.903 1994 Unknown [id number] 2.16.840.1.445559.3.579. 2.90 1994 Unknown [id number] 2.16.840.1.624246.3.579. 2.1243 1994 Unknown [id number] 2.16.840.1.757209.3.579. 2.124 1994 Unknown [id number] 2.16.840.1.336335.3.579. 2.902 1994 Unknown [id number] 2.16.840.1.244657.3.579. 2.902 1994 Unknown [id number] 2.16.840.1.157470.3.579. 2.902 1994 Unknown [id number] 2.16.840.1.622260.3.579. 2.90 Unknown [id number] 2.16.840.1.136577.3.579. 2.462 Social History Date Type Detail Facility Start: 09-25-2020 End: 10-06-2020 Tobacco smoking status NYIS Unknown if ever smoked [facility] Start: 1995 Sex Assigned At Not on file [facility] Start: 01-19-2022 End: 05-27-2022 Exposure to SARS-CoV-2 (event) Not sure [facility] Start: 04-13-2021 End: 01-29-2022 Tobacco smoking status NHIS Never smoked tobacco [facility] Start: 04-13-2021 End: 01-29-2022 Tobacco use and exposure Smokeless tobacco non-user [facility] Start: 04-13-2021 End: 05-20-2022 Alcohol intake Current drinker of alcohol (finding) [facility] Start: 04-13-2021 History SDOH Alcohol Comment socially [facility] Start: 10-16-2021 End: 12-14-2024 Alcohol intake Ex-drinker (finding) [facility] Start: 05-25-2018 History SDOH Alcohol Comment occasionally but not while [facility] Start: 09-27-2019 History SDOH Financial 5 [facility] Start: 09-27-2019 History SDOH Food Worry 1 [facility] Start: 09-27-2019 History SDOH Transport Med 2 [facility] Start: 09-13-2019 Education 13 [facility] Start: 09-26-2022 End: 12-06-2024 History of Social function [facility] Start: 09-26-2022 End: 12-06-2024 Tobacco use panel [facility] Start: 01-12-2018 Adult Depression Screening Assessment 19 [facility] Start: 04-13-2021 Gender identity Identifies as female gender (finding) [facility] Start: 04-13-2021 Sexual orientation Heterosexual (finding) [facility] Has the [employer], [employer], or water [employer] threatened to shut off services in your home in past 12Mo No [facility] Are you now , , , , never or living with a partner? [facility] How often to you hav e a drink containing alcohol? 2-4 times a month [facility] How many standard drinks containing alcohol do you have on a typical day? 1 or 2 [facility] How often do you hav e 6 or more drinks on 1 occasion? Never [facility] How hard is it for y ou to pay for the very basics like food, housing, medical care, and heating Somewhat hard [facility] Do you feel stress - tense, restless, nervous, or anxious, or unable to sleep at night because your mind is troubled all the time - these days [OSQ] Rather much [facility] (I/We) worried wheth er (my/our) food would run out before (I/we) got money to buy more. Never true [facility] In the past 12 month s, was there a time when you were not able to pay the mortgage or rent on time? Yes [facility] Start: 05-08-2020 Alcohol Alcohol [facility] Start: 1995 Sex Assigned At Female [facility] Do you feel stress - tense, restless, nervous, or anxious, or unable to sleep at night because your mind is troubled all the time - these days [OSQ] Not at all [facility] Goals Date Patient Goal Desired Activity /State Personal health goal Functional Status Date Assessment Result Facility 11-12-2024 [place] - suicide severity rating scale screener - recent [C-SSRS] [facility] Work Phone: 11-08-2024 [place] - suicide severity rating scale screener - recent [C-SSRS] [facility] Work Phone: 11-08-2024 Total score [AUDIT-C] 0 11/09/19 7:47 AM EDT User, Mychart [facility] 11-08-2024 How often to you hav e a drink containing alcohol? Never 11/08/2024 7:47 AM EDT User, Mychart Never [facility] 11-08-2024 Functional status Patient does n ot drink 11/08/2024 7:47 AM EDT [facility], [facility] Patient does not drink [facility] 11-08-2024 How often do you hav e 6 or more drinks on 1 occasion? Never 11/08/2024 7:47 AM EDT User, [facility] Never [facility] Mental Status Date Assessment Result Facility 11-07-2024 Cognitive function Awake;Alert;A ppropriate;Fol lows Commands [facility] Work Phone: Clinical Notes 09-13-2019 to 03-08-2025 Gisela Montano, DIANE - 01/09/2025 10:00 AM Radha Jones RN - 01/09/2025 10:00 AM Radha Jones RN - 01/09/2025 10:00 AM EDTPatient Watson Cordoba - 11/22/2024 1:23 PM EDT Note Date & Type Note Facility 03-08-2025 Note HNO ID: [id number] Author: CECILE LUIS APRN.CATERING ADMINISTRATIVE ASSISTANT Service: ? Author Type: Nurse Practitioner Type: Progress Notes Filed: 03/08/2025 14:04 Note Text: I have communicated my name and active licensure. The patient's identity and physical location were verified at the time of this visit. Either the patient or their legal account development representative has been informed of the risks and benefits of -- and alternatives to -- treatment through a remote evaluation and consents to proceed with the evaluation remotely. Subjective Angelita Marley is a 29 year old female. Follow-up on insomnia Patient states she is very anxious, sometimes feels suicidal. Her is a counselor and has the number for crisis hotline. She can contact him at any time. They have an open communication. She denies suicidal plan. Objective LMP 11/18/2024 (Approximate) GENERAL: alert and appropriate, in no distress, well-hydrated, well nourished, and happy, smiling, interactive ASSESSMENT/PLAN: 1. Chronic insomnia - ICD9: 780.52, ICD10: F51.04 (primary diagnosis) Trazodone 100 mg is not helping. She will continue the trazodone and add hydroxyzine 50 mg at bedtime - HYDROXYZINE HCL 25 MG TABLET 2. CARO (generalized anxiety disorder) - ICD9: 300.02, ICD10: F41.1 Increase fluoxetine from 20 mg to 40 mg daily. - May take hydroxyzine 25 mg morning and noon if needed, 50 mg at bedtime. - FLUOXETINE 40 MG CAPSULE Discussed treatment plan and patient voices understanding. Patient's questions answered appropriately. Medications and potential side effects were discussed and patient voices understanding. Return to the office as scheduled or as needed for worsening/no improvement. Visit was conducted via [employer] Patient Location: Patient Home or Place of Residence [facility] 02-20-2025 Note HNO ID: [id number] Author: BRET GAONA Tech Service: ? Author Type: Technologist Type: Progress Notes Filed: 02/20/2025 14:45 Note Text: EVENT MONITOR DISPOSABLE PATCH INSTRUCTIONS Patient Name: Angelita Marley Clinic Number: [id number] Skin prepped and cleansed with alcohol Patch secured to prepped area Monitor Activated Serial #: [id number] Patient Instructed: Prescribed order timeframe Bathing guidelines Usage of event button and diary documentation Return of monitor at the end of prescribed order Call with problems [phone] or [phone]. [phone] Patient expresses a good understanding of instructions Bret Gaona [facility] 02-20-2025 Note Education (CARDMN) ANGELITA MARLEY ([id number]) 1995 F Date Time Provider Department 02/20/25 2:30 PM [facility]THM[facility] Reason for Visit: Event [921] Cmt: ZIO PATCH Primary Visit Diagnosis:PFO (patent foramen ovale) ([facility]) [Q21.12] During your visit today, we recorded the following information about you: Allergies As of Date: 02/20/2025 Noted Allergy Reaction AMOXICILLIN 01/13/2018 16 - Unknown Comments: When she was a child DICYCLOMINE 09/22/2023 5 - Intolerance Comments: Patient reports causes migraines SEASONAL ALLERGIES 01/13/2018 9 - Itching Date Reviewed: 02/20/2025 Reviewed by: Khloe De Los Santos, SATURNINO - Fully Assessed Prescriptions as of 02/20/2025 - topiramate (TOPAMAX) 50 mg tablet Take 1 tablet by mouth two times a day. - traZODone (DESYREL) 100 mg tablet Take 1 tablet by mouth at bedtime as needed. - ACETAMINOPHEN PO Take 1 dose by mouth as needed. - Aspirin 81 mg tab Take 1 mg by mouth once daily. - metoprolol tartrate, short acting, (LOPRESSOR) 50 mg tablet Take one 50 mg tablet the evening prior to the CTA examination, take another 50 mg tablet the morning of the CTA examination. - atorvastatin (LIPITOR) 40 mg tablet Take 1 tablet by mouth once daily. - FLUoxetine (PROZAC) 20 mg capsule Take 1 capsule by mouth once daily. - omeprazole (PRILOSEC) 20 mg capsule Take 1 capsule by mouth daily before breakfast. 1/2 hr before meal. Encounter Status:Closed by BRET GAONA on 02/20/25 [facility] 02-20-2025 Note HNO ID: [id number] Author: MARSHALL TRAN MD Service: ? Author Type: Physician Type: Progress Notes Filed: 02/22/2025 16:10 Note Text: [facility] [place] [facility] OUTPATIENT VISIT DATE February 20, 2025 OUTPATIENT VISIT TYPE NEW PRIMARY CARE PHYSICIAN: Cecile Luis [address] [place] [address] REFERRING PHYSICIAN: Marshall Tran [address] [facility] [id number] CHIEF COMPLAINT: PFO CONGENITAL CARDIAC HISTORY: PFO 10/2024 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 Navarrete Previously on combined OCPs 4 years prior to stroke INTERVAL HISTORY: The pateint presents today to establish care in the setting of a recently diagnosed PFO. Reports significant shortness of breath (with 1.5 flights of stairs) that has worsened over time. Started in October after stroke. Shortness of Breath is relieved by rest. Reports that she also has right sided ear ringing that has worsened since her stroke. Reports orthostatic dizziness. Reports that she has chest heaviness with sitting in certain positions and with increased activity. This is better with stretching out. Reports palpitations (racing heart beat) with exercise, standing, quick movements (multiple times per day, lasting 1-2 minutes, resolving spontaneously or with changing positions). Also reports concurrent feeling of a bubble that goes up her neck. Reports new constipation. Reports decreased appetite since stroke. Reports LE edema that is dependent LE edema. Reports that she last weekend, she was walking with her , felt quite fatigued and dizziness along with ringing in her ears and then had a syncopal episode for a couple seconds, fell. Her picked her up. She felt tired but overall okay so she did not present to the ER. She has a history of syncope in the past with fracturing her coccyx last year and once before in early adulthood (does not remember the circumstances). Denied fever, chills, cough, cold, congestion, orthopnea, paroxysmal nocturnal dyspnea, , nausea, vomiting, diarrhea, constipation, abdominal pain, bloating/distention, diaphoresis, syncope. Has 2 children (6 and 4.5 yo boys), no issues with either , and both born full term. 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 Marley is a 29 year old female from [place], [place] here today for cardiovascular evaluation related to PFO. Angelita has a significant medical history of significant for asthma, anxiety, and depression. PAST MEDICAL HISTORY Diagnosis Date anxiety Asthma (HCC) sports induced. No attacks since age 16 depression PAST SURGICAL HISTORY Procedure Laterality Date INSERTION OF IUD 07/15/2020 Mirena PAST SURGICAL HISTORY OF wisdom teeth and root canal PAST SURGICAL HISTORY OF Right 03/09/2023 Heel spur removed and tendon cut for plantar fasciitis SOCIAL HISTORY[1] FAMILY HISTORY Problem Relation Age of Onset Asthma Mother other (Other tachycardia) Mother other (Other, hernia surgery) Father other (Other irregular heart rate) Father No Known Problems Sister Asthma Sister No Known Problems Brother Asthma Brother Cancer Maternal Grandmother skin cancer No Known Problems Maternal Grandfather Heart Paternal Grandmother other (benign tumor of ear) Paternal Grandmother No Known Problems Paternal Grandfather No Known Problems Son Heart Attack Maternal Uncle 37 Heart Attack Maternal Uncle ALLERGIES Allergen Reactions Amoxicillin Unknown When she was a child Dicyclomine Intolerance Patient reports causes migraines Seasonal Allergies Itching MEDICATIONS: topiramate (TOPAMAX) 50 mg tablet Take 1 tablet by mouth two times a day. traZODone (DESYREL) 100 mg tablet Take 1 tablet by mouth at bedtime as needed. ACETAMINOPHEN PO Take 1 dose by mouth as needed. Aspirin 81 mg tab Take 1 mg by mouth once daily. metoprolol tartrate, short acting, (LOPRESSOR) 50 mg tablet Take one 50 mg tablet the evening prior to the CTA examination, take another 50 mg tablet the morning of the CTA examination. nitroglycerin sublingual (NITROQUICK) 0.3 mg SL tablet Dissolve 1 tablet under the tongue one time only for 1 dose. To be administered in Radiology for CTA exam atorvastatin (LIPITOR) 40 mg tablet Take 1 tablet by mouth once daily. FLUoxetine (PROZAC) 20 mg capsule Take 1 capsule by mouth once daily. omeprazole (PRILOSEC) 20 mg capsule (more content not included)... [facility] 02-20-2025 Note HNO ID: [id number] Author: KEENA FREIRE RT(R) Service: Radiology Author Type: Technologist Type: Progress Notes Filed: 02/20/2025 10:48 Note Text: Radiology Service Progress Note PATIENT NAME: Angelita Marley DATE OF SERVICE: February 20, 2025 TIME: 10:48 AM PATIENT IDENTITY VERIFICATION COMPLETED USING TWO (2) IDENTIFIERS: Name and Date of confirmed by patient verbally. FALL SCREENING: Has the patient had 2 falls in the last year or 1 fall with injury or currently using an Ambulatory Assistive Device (Walker, Cane, Wheelchair, Crutches, etc.)? No PATIENT GENDER DATA: Assigned female at . status: : No status: NO. PATIENT RELEVANT IMPLANT DATA REVIEWED: Not Applicable PATIENT PRESENTS WITH AN IMPLANTABLE OR ATTACHED INFORMATION SYSTEMS AUDITOR: No RADIOLOGY DEPARTMENT: General X-ray: Exam(s) Completed: Chest X-Ray PERIPHERAL IV DATA: Not applicable SIGNED BY: RT Marleny(R) February 20, 2025 10:48 AM [facility] 01-09-2025 History of Present illness Narrative Radiology Service Progress Note PATIENT NAME: Angelita Marley DATE OF SERVICE: January 09, 2025 TIME: 10:35 AM PATIENT IDENTITY VERIFICATION COMPLETED USING TWO (2) IDENTIFIERS: Name and Date of confirmed by patient verbally and Name and Date of confirmed by identification band. FALL SCREENING: Has the patient had 2 falls in the last year or 1 fall with injury or currently using an Ambulatory Assistive Device (Walker, Cane, Wheelchair, Crutches, etc.)? No PATIENT GENDER DATA: Assigned female at . status: : No status: NO. PATIENT RELEVANT IMPLANT DATA REVIEWED: Not Applicable PATIENT PRESENTS WITH AN IMPLANTABLE OR ATTACHED INFORMATION SYSTEMS AUDITOR: No RADIOLOGY DEPARTMENT: CT; Exam(s) Completed: CTA Cardiac . Anesthesia: No PERIPHERAL IV DATA: Site assessment: Clean,Dry and Intact, Site disposition Discontinued SIGNED BY: DIANE Beltran January 09, 2025 10:35 AM documented in this encounter [facility] 01-09-2025 Note HNO ID: [id number] Author: GISELA MONTANO CT Service: Radiology Author Type: Technologist Type: Progress Notes Filed: 01/09/2025 10:36 Note Text: Radiology Service Progress Note PATIENT NAME: Angelita Marley DATE OF SERVICE: January 09, 2025 TIME: 10:35 AM PATIENT IDENTITY VERIFICATION COMPLETED USING TWO (2) IDENTIFIERS: Name and Date of confirmed by patient verbally and Name and Date of confirmed by identification band. FALL SCREENING: Has the patient had 2 falls in the last year or 1 fall with injury or currently using an Ambulatory Assistive Device (Walker, Cane, Wheelchair, Crutches, etc.)? No PATIENT GENDER DATA: Assigned female at . status: : No status: NO. PATIENT RELEVANT IMPLANT DATA REVIEWED: Not Applicable PATIENT PRESENTS WITH AN IMPLANTABLE OR ATTACHED INFORMATION SYSTEMS AUDITOR: No RADIOLOGY DEPARTMENT: CT; Exam(s) Completed: CTA Cardiac . Anesthesia: No PERIPHERAL IV DATA: Site assessment: Clean,Dry and Intact, Site disposition Discontinued SIGNED BY: DIANE Beltran January 09, 2025 10:35 AM [facility] 01-09-2025 Nurse Note Radiology Service Progress Note PATIENT NAME: Angelita Marley DATE OF SERVICE: January 09, 2025 TIME: 11:01 AM PATIENT IDENTITY VERIFICATION COMPLETED USING TWO (2) STANDARD IDENTIFIERS: Name and Date of confirmed by patient verbally and Name and Date of confirmed by identification band. PATIENT GENDER DATA: Assigned female at . status: : No status: NO. PATIENT RELEVANT IMPLANT DATA REVIEWED: Not Applicable ALLERGIES: Reviewed and unchanged MEDICATIONS REVIEWED: YES PROCEDURE TYPE: CTA Coronary PATIENT SCREENIN.3 SL nitro given before contrast administered IV SITE: Ambulatory: A peripheral IV was started in the Left antecubital site with a Angio cath: 18 gauge. PERIPHERAL IV ACCESS: Discontinued CARDIAC MEDICATIONS: Nitroglycerin 0.3 mg SL given PATIENT DISCHARGED TO: Home/Self Care SIGNED BY: Radha Hallman RN January 09, 2025 11:01 AM [facility] 01-09-2025 Nurse Note Radiology Service Progress Note PATIENT NAME: Angelita Marley DATE OF SERVICE: January 09, 2025 TIME: 11:01 AM PATIENT IDENTITY VERIFICATION COMPLETED USING TWO (2) STANDARD IDENTIFIERS: Name and Date of confirmed by patient verbally and Name and Date of confirmed by identification band. PATIENT GENDER DATA: Assigned female at . status: : No status: NO. PATIENT RELEVANT IMPLANT DATA REVIEWED: Not Applicable ALLERGIES: Reviewed and unchanged MEDICATIONS REVIEWED: YES PROCEDURE TYPE: CTA Coronary PATIENT SCREENIN.3 SL nitro given before contrast administered IV SITE: Ambulatory: A peripheral IV was started in the Left antecubital site with a Angio cath: 18 gauge. PERIPHERAL IV ACCESS: Discontinued CARDIAC MEDICATIONS: Nitroglycerin 0.3 mg SL given PATIENT DISCHARGED TO: Home/Self Care SIGNED BY: Radha Hallman RN January 09, 2025 11:01 AM documented in this encounter [facility] 01-04-2025 Telephone encounter Note Call placed to patient and notified of below. Marisela Espinoza RN [facility] 01-04-2025 Miscellaneous Notes Call placed to patient and notified of below. Marisela Espinoza RN The following approved medication requests have been transmitted electronically. Requested Prescriptions Signed Prescriptions Disp Refills topiramate (TOPAMAX) 50 mg tablet 60 tablet 5 Sig: Take 1 tablet by mouth two times a day. Authorizing Provider: CECILE LUIS APRN.CNP The patient has been identified by name and date of : Yes Caregiver verified no other encounters exist for this prescription request: Yes Caregiver confirmed with patient/requestor that no other refills are due, in the near future, with this provider at this time: Yes The last office visit in the department: 12/14/2024 Does the patient have a future office visit with this provider/department: No Requested Prescriptions Pending Prescriptions Disp Refills topiramate (TOPAMAX) 50 mg tablet 60 tablet 5 Sig: Take 1 tablet by mouth two times a day. No valid prescription at [facility]. [facility] reports medication was discontinued and requesting new prescription. Last prescription was print. Pended. Marisela Espinoza RN January 01, 2025 3:30 PM documented in this encounter [facility] 01-01-2025 Telephone encounter Note The following approved medication requests have been transmitted electronically. Requested Prescriptions Signed Prescriptions Disp Refills topiramate (TOPAMAX) 50 mg tablet 60 tablet 5 Sig: Take 1 tablet by mouth two times a day. Authorizing Provider: CECILE LUIS APRN.CNP [facility] 01-01-2025 Telephone encounter Note The patient has been identified by name and date of : Yes Caregiver verified no other encounters exist for this prescription request: Yes Caregiver confirmed with patient/requestor that no other refills are due, in the near future, with this provider at this time: Yes The last office visit in the department: 12/14/2024 Does the patient have a future office visit with this provider/department: No Requested Prescriptions Pending Prescriptions Disp Refills topiramate (TOPAMAX) 50 mg tablet 60 tablet 5 Sig: Take 1 tablet by mouth two times a day. No valid prescription at [facility]. [facility] reports medication was discontinued and requesting new prescription. Last prescription was print. Pended. Marisela Espinoza RN January 01, 2025 3:30 PM [facility] 12-14-2024 Instructions Cecile Luis APRN.NOMI - 12/14/2024 3:10 PM EDT - occupational health technician and start your new topiramate prescription at 50 mg 2 x day as directed for migraine prevention. - occupational health technician and start your new trazodone prescription at 100 mg at bedtime to help with sleep. - Continue your daily low-dose aspirin for stroke prevention. - Stop taking ibuprofen or any other NSAID regularly. Use Tylenol (acetaminophen) instead for headache or pain relief. - Allow yourself short rest breaks or a brief nap when you feel unusually tired, as brain injury can cause fatigue. - Watch for side effects from topiramate (increased tiredness, lightheadedness, dizziness). If these worsen or you have other concerns, send a message to our office. - Schedule your referral visit with the GI specialist for ongoing heartburn management. - Keep your headache-specialist appointment at the end of December. Ask about evaluating for multiple sclerosis, as discussed. - If your neurological symptoms worsen or new symptoms develop, please contact us right away. documented in this encounter [facility] 12-14-2024 Note HNO ID: [id number] Author: CECILE LUIS APRN.NOMI Service: ? Author Type: Nurse Practitioner Type: Progress Notes Filed: 12/14/2024 15:10 Note Text: This is a 29 year old female who presents today with: No chief complaint on file. HISTORY OF PRESENT ILLNESS: Angelita Marley is a 29 year old female. No chief complaint on file. Angelita Marley is a 29-year-old female with a history of CVA, presenting for follow-up of neurological symptoms and headaches. Neurological Symptoms: - Daily symptoms of feeling intoxicated without alcohol consumption. - Recent episode of right-sided facial numbness and severe migraine while driving, leading to ER visit. - Reports feeling cognitively slow and having difficulty with speech, described as feeling very slow and struggling to get words out. - Experiences numbness and tingling in extremities, with legs frequently going to sleep and right hand becoming completely numb. - Vision disturbances, particularly in the right eye, with intermittent blurriness. - Frequent headaches, including pain behind the eyes. - Episodes of severe shaking, described as convulses. - Significant weight loss of approximately 10 lbs in the past month, with a current weight of 150 lbs. - Family history of strokes, blood clots, brain tumors, and cancers. CVA: - Multiple ER visits for stroke-like symptoms. - Diagnosed with a stroke on MRI; has had two MRIs, one at [facility] and one at [facility]. - Neurologist Dr. Lackey is following the case; Angelita is scheduled to see a headache neurologist in December. - Denies use of control at the time of the stroke; has not used control for about 5 years. Headaches: - Daily headaches, but not all are migraines. - Taking topiramate, which has helped reduce the frequency of migraines. - Reports brain fog but unsure if it is related to topiramate. - Taking trazodone 50 mg for sleep, but still experiencing insomnia; reports getting a couple of hours of sleep with trazodone, but will go days without sleep if not taking it. - Rarely uses Benadryl, mostly in the fall for allergies. PAST MEDICAL HISTORY: PAST MEDICAL HISTORY Diagnosis Date anxiety Asthma (HCC) sports induced. No attacks since age 16 depression PAST SURGICAL HISTORY Procedure Laterality Date INSERTION OF IUD 07/15/2020 Mirena PAST SURGICAL HISTORY OF wisdom teeth and root canal PAST SURGICAL HISTORY OF Right 03/09/2023 Heel spur removed and tendon cut for plantar fasciitis ALLERGIES Amoxicillin, Dicyclomine, and Seasonal Allergies MEDICATIONS Current Outpatient Medications Medication Sig ACETAMINOPHEN PO Take 1 dose by mouth as needed. Aspirin 81 mg tab Take 1 mg by mouth once daily. IBUPROFEN PO Take 1 dose by mouth as needed. metoprolol tartrate, short acting, (LOPRESSOR) 50 mg tablet Take one 50 mg tablet the evening prior to the CTA examination, take another 50 mg tablet the morning of the CTA examination. nitroglycerin sublingual (NITROQUICK) 0.3 mg SL tablet Dissolve 1 tablet under the tongue one time only for 1 dose. To be administered in Radiology for CTA exam atorvastatin (LIPITOR) 40 mg tablet Take 1 tablet by mouth once daily. FLUoxetine (PROZAC) 20 mg capsule Take 1 capsule by mouth once daily. omeprazole (PRILOSEC) 20 mg capsule Take 1 capsule by mouth daily before breakfast. 1/2 hr before meal. topiramate (TOPAMAX) 25 mg tablet Take 1 tablet by mouth two times a day. traZODone (DESYREL) 50 mg tablet Take 1 tablet by mouth daily at bedtime. cetirizine (ZYRTEC) 10 mg tablet Take 10 mg by mouth as needed. fluticasone (FLONASE ALLERGY RELIEF) 50 mcg/actuation nasal spray Use 1 [place] in each nostril two times a day. diphenhydramine HCl (BENADRYL ORAL) Take 1 tablet by mouth as needed. No current facility-administered medications for this visit. FAMILY HISTORY Problem Relation Age of Onset Asthma Mother other (Other tachycardia) Mother other (Other, hernia surgery) Father other (Other irregular heart rate) Father No Known Problems Sister Asthma Sister No Known Problems Brother Asthma Brother Cancer Maternal Grandmother skin cancer No Known Problems Maternal Grandfather Heart Paternal Grandmother other (benign tumor of ear) Paternal Grandmother No Known Problems Paternal Grandfather No Known Problems Son Heart Attack Maternal Uncle 37 Heart Attack Maternal Uncle SOCIAL HISTORY[1] REVIEW OF SYSTEMS Constitutional: (+) insomnia, (+) weight loss, (+) decreased appetite, (-) cold intolerance Head: (+) headache Eyes: (+) visual disturbance, (+) eye pain Gastrointestinal: (+) heartburn Musculoskeletal: (+) joint pain Skin: (+) diaphoresis Neurological: (+) dizziness, (+) right facial numbness, (+) speech difficulty, (+) cognitive slowing, (+) extremity paresthesias, (+) tremors, (+) gait disturbance EXAM: BP 126/86 Pulse 83 (more content not included)... [facility] 12-14-2024 History of Present illness Narrative This is a 29 year old female who presents today with: No chief complaint on file. HISTORY OF PRESENT ILLNESS: Angelita Marley is a 29 year old female. No chief complaint on file. Angelita Marley is a 29-year-old female with a history of CVA, presenting for follow-up of neurological symptoms and headaches. Neurological Symptoms: - Daily symptoms of feeling intoxicated without alcohol consumption. - Recent episode of right-sided facial numbness and severe migraine while driving, leading to ER visit. - Reports feeling cognitively slow and having difficulty with speech, described as feeling very slow and struggling to get words out. - Experiences numbness and tingling in extremities, with legs frequently going to sleep and right hand becoming completely numb. - Vision disturbances, particularly in the right eye, with intermittent blurriness. - Frequent headaches, including pain behind the eyes. - Episodes of severe shaking, described as convulses. - Significant weight loss of approximately 10 lbs in the past month, with a current weight of 150 lbs. - Family history of strokes, blood clots, brain tumors, and cancers. CVA: - Multiple ER visits for stroke-like symptoms. - Diagnosed with a stroke on MRI; has had two MRIs, one at [facility] and one at [facility]. - Neurologist Dr. Lackey is following the case; Angelita is scheduled to see a headache neurologist in December. - Denies use of control at the time of the stroke; has not used control for about 5 years. Headaches: - Daily headaches, but not all are migraines. - Taking topiramate, which has helped reduce the frequency of migraines. - Reports brain fog but unsure if it is related to topiramate. - Taking trazodone 50 mg for sleep, but still experiencing insomnia; reports getting a couple of hours of sleep with trazodone, but will go days without sleep if not taking it. - Rarely uses Benadryl, mostly in the fall for allergies. PAST MEDICAL HISTORY: PAST MEDICAL HISTORY Diagnosis Date anxiety Asthma (HCC) sports induced. No attacks since age 16 depression PAST SURGICAL HISTORY Procedure Laterality Date INSERTION OF IUD 07/15/2020 Mirena PAST SURGICAL HISTORY OF wisdom teeth and root canal PAST SURGICAL HISTORY OF Right 03/09/2023 Heel spur removed and tendon cut for plantar fasciitis ALLERGIES Amoxicillin, Dicyclomine, and Seasonal Allergies MEDICATIONS Current Outpatient Medications Medication Sig ACETAMINOPHEN PO Take 1 dose by mouth as needed. Aspirin 81 mg tab Take 1 mg by mouth once daily. IBUPROFEN PO Take 1 dose by mouth as needed. metoprolol tartrate, short acting, (LOPRESSOR) 50 mg tablet Take one 50 mg tablet the evening prior to the CTA examination, take another 50 mg tablet the morning of the CTA examination. nitroglycerin sublingual (NITROQUICK) 0.3 mg SL tablet Dissolve 1 tablet under the tongue one time only for 1 dose. To be administered in Radiology for CTA exam atorvastatin (LIPITOR) 40 mg tablet Take 1 tablet by mouth once daily. FLUoxetine (PROZAC) 20 mg capsule Take 1 capsule by mouth once daily. omeprazole (PRILOSEC) 20 mg capsule Take 1 capsule by mouth daily before breakfast. 1/2 hr before meal. topiramate (TOPAMAX) 25 mg tablet Take 1 tablet by mouth two times a day. traZODone (DESYREL) 50 mg tablet Take 1 tablet by mouth daily at bedtime. cetirizine (ZYRTEC) 10 mg tablet Take 10 mg by mouth as needed. fluticasone (FLONASE ALLERGY RELIEF) 50 mcg/actuation nasal spray Use 1 [place] in each nostril two times a day. diphenhydramine HCl (BENADRYL ORAL) Take 1 tablet by mouth as needed. No current facility-administered medications for this visit. FAMILY HISTORY Problem Relation Age of Onset Asthma Mother other (Other tachycardia) Mother other (Other, hernia surgery) Father other (Other irregular heart rate) Father No Known Problems Sister Asthma Sister No Known Problems Brother Asthma Brother Cancer Maternal Grandmother skin cancer No Known Problems Maternal Grandfather Heart Paternal Grandmother other (benign tumor of ear) Paternal Grandmother No Known Problems Paternal Grandfather No Known Problems Son Heart Attack Maternal Uncle 37 Heart Attack Maternal Uncle SOCIAL HISTORY[1] REVIEW OF SYSTEMS Constitutional: (+) insomnia, (+) weight loss, (+) decreased appetite, (-) cold intolerance Head: (+) headache Eyes: (+) visual disturbance, (+) eye pain Gastrointestinal: (+) heartburn Musculoskeletal: (+) joint pain Skin: (+) diaphoresis Neurological: (+) dizziness, (+) right facial numbness, (+) speech difficulty, (+) cognitive slowing, (+) extremity paresthesias, (+) tremors, (+) gait disturbance EXAM: BP 126/86 Pulse 83 Wt 72.6 kg (160 lb) LMP 11/18/2024 (Approximate) SpO2 100% BMI 29.26 kg/m PHYSICAL EXAM: GENERAL: NAD, alert and oriented. SKIN: Unremarkable, no rash or skin lesions. HEAD: Normocephalic. EYES: PERRLA, EOMI, conjunctiva clear. EARS: External ears normal, canals clear, TM's normal. NECK: Supple, no lymphadenopathy, normal thyroid, no carotid bruits. LUNGS: Clear to auscultation bilaterally, no wheezes/rhonchi/rales. HEART: Regular rate and rhythm, no murmurs. No ectopy. EXTREMITIES: Normal, no deformities, no skin discoloration, no edema. NEURO: Cranial nerves II-XII grossly intact, normal gait, no involuntary motions. LABS: Labs: Tests: Imaging: - CT Head: No acute abnormality, consistent with cluster migraines; stroke workup negative - MRI Brain ([facility]): FLAIR changes consistent with stroke - MRI Brain ([facility]): No stroke identified at the time ASSESSMENT/PLAN: 1. Migraine without aura and without status migrainosus, not intractable - ICD9: 346.10, ICD10: G43.009 Some improvement - TOPIRAMATE 50 MG TABLET 2 x day 2. Difficulty sleeping - ICD9: 780.50, ICD10: G47.9 Little improvement - TRAZODONE 100 MG TABLET qhs as needed Discussed treatment plan and patient voices understanding. Patient's questions answered appropriately. Medications and potential side effects were discussed and patient voices understanding. Return to the office as scheduled or as needed for worsening/no improvement. Cecile Luis APRN.NOMI [1] Social History Tobacco Use Smoking status: Never Smokeless tobacco: Never Vaping Use Vaping status: Never Used Substance Use Topics Alcohol use: Not Currently Comment: occasionally but not while Drug use: No documented in this encounter [facility] 12-12-2024 Note HNO ID: [id number] Author: VIANEY BARNHART RDMS Service: ? Author Type: Jacker Feeder Type: Progress Notes Filed: 12/13/2024 14:34 Note Text: Radiology Service Progress Note PATIENT NAME: Angelita Marley DATE OF SERVICE: December 13, 2024 TIME: 2:34 PM PATIENT IDENTITY VERIFICATION COMPLETED USING TWO (2) IDENTIFIERS: Name and Date of confirmed by patient verbally. FALL SCREENING: Has the patient had 2 falls in the last year or 1 fall with injury or currently using an Ambulatory Assistive Device (Walker, Cane, Wheelchair, Crutches, etc.)? No PATIENT GENDER DATA: Assigned female at . status: : No status: NO. PATIENT RELEVANT IMPLANT DATA REVIEWED: Not Applicable PATIENT PRESENTS WITH AN IMPLANTABLE OR ATTACHED INFORMATION SYSTEMS AUDITOR: No RADIOLOGY DEPARTMENT: Ultrasound PERIPHERAL IV DATA: Not applicable SIGNED BY: Vianey Barnhart RDMS RVT December 13, 2024 2:34 PM [facility] 12-10-2024 Telephone encounter Note Gave patient a call back in regards to critical result from CT scan. Referred patient to message from Dr. Navarrete. Patient informed me she read the message. Patient had no other questions or concerns. Delmi Davidson RN [facility] 12-10-2024 Miscellaneous Notes Gave patient a call back in regards to critical result from CT scan. Referred patient to message from Dr. Navarrete. Patient informed me she read the message. Patient had no other questions or concerns. Delmi Davidson RN Patient calling office requesting to discuss her recent e.r. CTA imaging test results that was listed as being critical. Patient requests a urgent call back at [phone] and has also left a MyChart message as well. documented in this encounter [facility] 12-10-2024 Telephone encounter Note Patient calling office requesting to discuss her recent e.r. CTA imaging test results that was listed as being critical. Patient requests a urgent call back at [phone] and has also left a [employer] message as well. [facility] Work Phone: 12-05-2024 Note HNO ID: [id number] Author: FLAVIO NAVARRETE MD Service: ? Author Type: Physician Type: Plan of Care Filed: 12/05/2024 17:22 Note Text: Telestroke Brief note Patient presents to [facility] for possible stroke symptoms. Patient is known to me from the clinic due to recent MRI brain finding of left occipital small FLAIR changes concerning remote infarct. 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 Initially noted L homonymous hemianopsia but later repeated visual field testing noted more partial visual field deficit (picture in the clinic note). Patient also noted headache associated with the vision impairment. When I followed her lastly in the clinic, she reported that the vision impairment has been changing now to the right side. Today, patient woke up with headache, and later underwent TTE w/ bubble study. After that, she noted right vision impairment which has been fluctuating, later noted right facial numbness and speech impairment. Upon arrival in the ED, NIHSS 1 with facial sensory deficit, but no obvious aphasia or visual field deficit noted. She continues to have headache. LKW 3 hr prior to arrival. Given mild symptom, no TNK candidate. Will follow up CTH/CTA. Recommended migraine cocktail. CTH/CTA reviewed: no acute finding. CTA H/N no LVO or significant stenosis. Concern of complex migraine while cannot exclude ischemic stroke. Will treat with migraine cocktail. If patient improves with her symptoms with migraine treatment, I will follow up in my clinic. If continues to have symptoms, likely need further inpatient work up. Flavio Navarrete MD Staff Neurologist [facility] 12-05-2024 Note HNO ID: [id number] Author: ADRIANE GONZALES MD Service: ? Author Type: Physician Type: Progress Notes Filed: 12/06/2024 12:14 Note Text: [facility] [place] [facility] Department of Cardiovascular Medicine SECTION OF CLINICAL CARDIOLOGY OUTPATIENT VISIT DATE December 05, 2024 OUTPATIENT VISIT TYPE CONSULTATION PRIMARY CARE PHYSICIAN: Cecile Luis [address] [place] [address] REFERRING PHYSICIAN Munir Allison [address] [facility] [address] CHIEF COMPLAINT: Chest pain HISTORY OF PRESENT ILLNESS: Cardiac consultation at the request of Dr. Munir Allison.A copy of this consultation note will be provided to the requesting physician by way of shared Medical record or letter to requesting physician via US mail. Ms. Marley is a 29 year old female who is seen today for chest pain. PMHx significant for asthma, anxiety, and depression. Patient states she has been having chest pain since November 07 which has gradually worsened. She presented to [facility] ED in [place] at this time. It is present both at rest and with activity. She has also been experiencing shortness of breath with activity. The chest pain radiates down her left arm and has been experiencing numbness in both hands. It also radiates up her neck. She still was not feeling well and went to [facility] in [place] and left again after a few hours. On November 08 she had acute vision loss on her right side. Saw mimeographer who sent her to the ED since they were concerned about stroke. She went to [facility] and had a CT scan w/o contrast, MRI and did not find anything concerning for stroke. They discharged her after 2-3 hours. Had an apt with a neurology a week later on November 14 and was started on cholesterol medication and low dose aspirin. She did a cranial doppler bubble study which was positive. Per patient, other imaging obtained showed evidence of a stroke but is unsure whether it's new or old. She denies orthopnea, edema, palpitations. NURSING INTAKE: Ms. Marley is a 29 year old female from [place], [place] here today for cardiovascular evaluation related to chest pain which began in August of 2024. She was referred by Dr. Munir Allison. On November 07 she presented to ED with complaints of severe chest pain, nausea, dizziness and a headache which woke her up at 4am. Her bloodwork revealed an elevated D-Dimer of 1800ng/mL. Her chest CT was normal. She was discharged home, however presented to another ED later in the day for complaints of persistent dizziness, feeling out of it and weakness in both hands (worse on L). She underwent cardiac workup, which was normal and she was again discharged. Per Office Note by Dr. Flavio Manzo MD Cerebrovascular Medicine on 11/22/2024: She has a family history of ?clotting disorders on both sides, with maternal uncles having heart clots and one uncle having two strokes and a heart attack. Her paternal grandmother had an aneurysm in her heart and a clot in her ?right ear, resulting in deafness. All family members with heart problems were under 45 years old. 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 PAST MEDICAL HISTORY Diagnosis Date anxiety Asthma (HCC) sports induced. No attacks since age 16 depression PAST SURGICAL HISTORY Procedure Laterality Date INSERTION OF IUD 07/15/2020 Mirena PAST SURGICAL HISTORY OF wisdom teeth and root canal PAST SURGICAL HISTORY OF Right 03/09/2023 Heel spur removed and tendon cut for plantar fasciitis SOCIAL HISTORY Social History Tobacco Use Smoking status: Never Smokeless tobacco: Never Vaping Use Vaping status: Never Used Substance Use Topics Alcohol use: Not Currently Comment: occasionally but not while Drug use: No FAMILY HISTORY Problem Relation Age of Onset Asthma Mother other (Other tachycardia) Mother other (Other, hernia surgery) Father other (Other irregular heart rate) Father No Known Problems Sister Asthma Sister No Known Problems Brother Asthma Brother Cancer Maternal Grandmother skin cancer No Known Problems Maternal Grandfather Heart Paternal Grandmother other (benign tumor of ear) Paternal Grandmother No Known Probl (more content not included)... [facility] 11-22-2024 History of Present illness Narrative Radiology Service Progress Note PATIENT NAME: Angelita Marley DATE OF SERVICE: November 22, 2024 TIME: 2:24 PM PATIENT IDENTITY VERIFICATION COMPLETED USING TWO (2) IDENTIFIERS: Name and Date of confirmed by patient verbally. FALL SCREENING: Has the patient had 2 falls in the last year or 1 fall with injury or currently using an Ambulatory Assistive Device (Walker, Cane, Wheelchair, Crutches, etc.)? No PATIENT GENDER DATA: Assigned female at . status: status: N/A PATIENT RELEVANT IMPLANT DATA REVIEWED: Not Applicable PATIENT PRESENTS WITH AN IMPLANTABLE OR ATTACHED INFORMATION SYSTEMS AUDITOR: No RADIOLOGY DEPARTMENT: Ultrasound PERIPHERAL IV DATA: Not applicable SIGNED BY: RT Sally(R) November 22, 2024 2:24 PM documented in this encounter [facility] 11-22-2024 Note HNO ID: [id number] Author: MARK SALTER RT(Nancy) Service: ? Author Type: Technologist Type: Progress Notes Filed: 11/22/2024 14:24 Note Text: Radiology Service Progress Note PATIENT NAME: Angelita Marley DATE OF SERVICE: November 22, 2024 TIME: 2:24 PM PATIENT IDENTITY VERIFICATION COMPLETED USING TWO (2) IDENTIFIERS: Name and Date of confirmed by patient verbally. FALL SCREENING: Has the patient had 2 falls in the last year or 1 fall with injury or currently using an Ambulatory Assistive Device (Walker, Cane, Wheelchair, Crutches, etc.)? No PATIENT GENDER DATA: Assigned female at . status: status: N/A PATIENT RELEVANT IMPLANT DATA REVIEWED: Not Applicable PATIENT PRESENTS WITH AN IMPLANTABLE OR ATTACHED INFORMATION SYSTEMS AUDITOR: No RADIOLOGY DEPARTMENT: Ultrasound PERIPHERAL IV DATA: Not applicable SIGNED BY: RT Sally(R) November 22, 2024 2:24 PM [facility] 11-22-2024 Note Education (CARDMN) ANGELITA MARLEY ([id number]) 1995 F Date Time Provider Department 11/22/24 1:30 PM [facility] Reason for Visit: Event [921] Cmt: Zio patch Primary Visit Diagnosis:Cerebral infarction, unspecified mechanism (HCC) [I63.9] During your visit today, we recorded the following information about you: Allergies As of Date: 11/22/2024 Noted Allergy Reaction AMOXICILLIN 01/13/2018 16 - Unknown Comments: When she was a child DICYCLOMINE 09/22/2023 5 - Intolerance Comments: Patient reports causes migraines SEASONAL ALLERGIES 01/13/2018 9 - Itching Date Reviewed: 11/22/2024 Reviewed by: Bronwyn Diane MA - Fully Assessed Prescriptions as of 11/22/2024 - iv contrast (will be provided with radiology test) CTA Head/Neck W No IV access, insert saline lock prior to the sedation, infusion, injection for imaging exam. Discontinue saline lock post exam. If Pt. has a central line or IVAD, may access for administration according to line specific nursing protocol. Once exam is complete flush line and de-access according to line specific nursing protocol in the CT contrast administration guidelines link. - iv contrast (will be provided with radiology test) MRI Brain Inject, intravenously, once for 1 dose.No IV access, insert saline lock prior to beginning of sedation, infusion, injection of imaging exam.Discontinue saline lock post exam. If Pt. has a central line or IVAD, may access for administration according to line specific nursing protocol.Once exam is complete flush line and de-access according to line specific nursing protocol in the MR contrast administration guidelines link - iv contrast (will be provided with radiology test) CTA Head/Neck W No IV access, insert saline lock prior to the sedation, infusion, injection for imaging exam. Discontinue saline lock post exam. If Pt. has a central line or IVAD, may access for administration according to line specific nursing protocol. Once exam is complete flush line and de-access according to line specific nursing protocol in the CT contrast administration guidelines link. - iv contrast (will be provided with radiology test) CTV Head WO/W IVCON No IV access, insert saline lock prior to the sedation, infusion, injection for imaging exam. Discontinue saline lock post exam. If Pt. has a central line or IVAD, may access for administration according to line specific nursing protocol. Once exam is complete flush line and de-access according to line specific nursing protocol in the CT contrast administration guidelines link. - iv contrast (will be provided with radiology test) CTV Head W IVCON No IV access, insert saline lock prior to the sedation, infusion, injection for imaging exam. Discontinue saline lock post exam. If Pt. has a central line or IVAD, may access for administration according to line specific nursing protocol. Once exam is complete flush line and de-access according to line specific nursing protocol in the CT contrast administration guidelines link. - FLUoxetine (PROZAC) 20 mg capsule Take 1 capsule by mouth once daily. - omeprazole (PRILOSEC) 20 mg capsule Take 1 capsule by mouth daily before breakfast. 1/2 hr before meal. - topiramate (TOPAMAX) 25 mg tablet Take 1 tablet by mouth two times a day. - SUMAtriptan (IMITREX) 50 mg tablet Take 1 tablet by mouth as needed for migraine headache (see administration instructions) (at onset of headache. May repeat after 2 hours.). May repeat dose after 2 hours if needed. Maximum daily dose is 200 mg per day. - traZODone (DESYREL) 50 mg tablet Take 1 tablet by mouth daily at bedtime. - cetirizine (ZYRTEC) 10 mg tablet Take 10 mg by mouth as needed. - fluticasone (FLONASE ALLERGY RELIEF) 50 mcg/actuation nasal spray Use 1 [place] in each nostril two times a day. - diphenhydramine HCl (BENADRYL ORAL) Take by mouth. Encounter Status:Closed by WATSON SCOTT on 11/22/24 [facility] 11-22-2024 Note HNO ID: [id number] Author: ?, ?, ? Service: ? Author Type: ? Type: Progress Notes Filed: 11/22/2024 13:38 Note Text: EVENT MONITOR DISPOSABLE PATCH INSTRUCTIONS Patient Name: Angelita Marley Clinic Number: [id number] Skin prepped and cleansed with alcohol Patch secured to prepped area Monitor Activated Serial #: [id number] Patient Instructed: Prescribed order timeframe Bathing guidelines Usage of event button and diary documentation Return of monitor at the end of prescribed order Call with problems [phone] or [phone]. [phone] Patient expresses a good understanding of instructions Watson Scott [facility] 11-22-2024 History of Present illness Narrative EVENT MONITOR DISPOSABLE PATCH INSTRUCTIONS Patient Name: Angelita Marley [facility] Number: [id number] Skin prepped and cleansed with alcohol Patch secured to prepped area Monitor Activated Serial #: [id number] Patient Instructed: Prescribed order timeframe Bathing guidelines Usage of event button and diary documentation Return of monitor at the end of prescribed order Call with problems [phone] or [phone]. [phone] Patient expresses a good understanding of instructions Watson Scott documented in this encounter [facility] 11-22-2024 Instructions Flavio Navarrete MD - 11/22/2024 1:01 PM EDT Regarding your visit with Dr. Navarrete at the [facility] we discussed the following: Impression: Abnormal MRI brain - possible remote ischemic stroke History of migraine New headache, tinnitus (R), visual disturbance, left paresthesia Elevated D-dimer - r/o DVT Hypertension: Blood pressure goal < 130 Blood pressure today: BP 125/71 (BP Site: Right Arm, BP Position: Sitting, BP Cuff Size: Regular Adult) Pulse 80 Resp 14 Ht 157.5 cm (5' 2) Wt 70.3 kg (155 lb) LMP 07/21/2024 (Approximate) SpO2 100% BMI 28.35 kg/m Hyperlipidemia: LDL goal < 70 Most recent LDL: LDL Cholesterol, Calculated (mg/dL) Date Value 09/22/2023 124 Diabetes: Hba1c goal < 7.0 Most recent Hba1c: Hemoglobin A1C (%) Date Value 09/22/2023 4.4 Recommendations: Start taking aspirin 81mg daily (baby aspirin) Will do stroke work up: Blood work (LDL, HbA1C, hypercoagulability test, TCD doppler emboli detection, cardiac rhythm monitoring (Zio Patch), CTA H/N and CTV head) Will obtain DVT study given D-dimer elevation Given unclear nature of the left occipital lesion - while chronic stroke is possible, will repeat MRI brain in 6 months to follow. Follow up with your PCP and industrial plant custodian for chest pain. Will refer to headache clinic Ask your visual field testing from your office 11/07/24 to my office Regular follow up with primary care doctor for health maintenance -Assist ensuring blood pressure and cholesterol are at goal -Screen and manage diabetes Lifestyle modification -- Establish goals -Diet -Regular Exercise as discussed -Establish weight goals with primary care doctor Additional stroke reduction measures and stroke warning signs are listed below. Return to see 6 weeks Please do not hesitate to call if you have any questions Flavio Navarrete MD [facility] [address] [place] [address] / [place] [address] Office: [phone] ~~~~~~~~~~~~~~~~~~~~~~~~~~~~~~~~~ ~~~~~~~~~~~~~~~~~~~~~~~~~~~~~~~~~ ~~~~~~ Stroke Signs and Symptoms: *Stroke is a medical emergency. Know the warning signs of stroke: Sudden numbness or weakness of the face, arm or leg, especially on one side of the body Sudden confusion, trouble speaking, or understanding Sudden trouble seeing in one eye, or both eyes Sudden trouble walking, dizziness, loss of balance, or coordination Sudden severe headache with no known cause *If you, or someone with you, has one or more of these signs, don't delay! Immediately call 911, or the emergency medical services (EMS) number so an ambulance can be sent for you. Also, check the time so that you will know when the symptoms first appeared. It is very important to take immediate action, every second counts. Medical treatment may be available if action is taken early enough. ~~~~~~~~~~~~~~~~~~~~~~~~~~~~~~~~~ ~~~~~~~~~~~~~~~~~~~~~~~~~~~~~~~~~ ~~~~~~ General Guidelines to Help Reduce Risk of Recurrent Stroke Blood Pressure Management: Blood Pressure reduction is recommended for both prevention of recurrent stroke and prevention of other vascular events in persons who have had an ischemic stroke or TIA and are beyond the first 24 hours. Several lifestyle modifications have been associated with BP reduction and are a reasonable part of a comprehensive antihypertensive therapy. These modifications include: - salt restriction (less than 2 grams per day) - weight loss - consumption of a diet rich in fruits, vegetables, and low-fat dairy products - regular aerobic physical activity - limited alcohol consumption Goal: Prehypertension (BP less than 130/80 mm Hg): - Perform annual BP screening and lifestyle modifications Hypertension: (BP greater than or equal to 130/80 mm Hg) - Combine medications with above lifestyle modifications to reach your goal blood pressure as defined above. - Monitor your blood pressure at home regularly to ensure you are reaching your goals Diabetes Mellitus: - the goal for glycemic control should be individualized based on the risk for adverse events, patient characteristics and preferences, and, for most patients with diabetes, achieving a goal of HbA1c <=7% is recommended to reduce risk for microvascular complications. - treatment of diabetes should include glucose-lowering medications with proven cardiovascular benefit to reduce the risk for future major adverse cardiovascular events (eg, stroke, heart attack) Cholesterol and Lipid Management - Statin (rosuvastatin or atorvastatin) therapy with intensive lipid-lowering effects is recommended to reduce risk of stroke and cardiovascular events among patients with ischemic stroke or TIA who have LDL cholesterol > 100 mg/dL, or evidence of atherosclerosis. - A goal of LDL cholesterol < 70 mg/dL for stroke or TIA patients on lipid lowering therapy is recommended. - Ezetimibe in combination with statin therapy to lower the LDL cholesterol < 70 mg/DL is recommended, if statin therapy alone is insufficient to attain this treatment target. - For patients with ischemic stroke at very high risk, already taking maximally tolerated statin and ezetimibe and still have an LDL cholesterol > 70 mg/dL, it is reasonable to treat with a proprotein convertase subtilisin/kexin type 9 (PCSK9) inhibitor to prevent atherosclerotic cardiovascular or cerebrovascular events. - In patients with ischemic stroke or TIA, with fasting triglycerides 135 to 499 mg/dL and LDL cholesterol of 41 to 100 mg/dL, on moderate- or high-intensity statin therapy, with HbA1c <10%, and with no history of pancreatitis, atrial fibrillation, or severe heart failure, treatment with icosapent ethyl (IPE) 2 g twice a day is reasonable to reduce risk of recurrent stroke Diet: - Reduced sodium and increased potassium intake; DASH-style diet rich in fruits and vegetables (https://www.nhlbi.nih.gov/educat ion/lmdj-yngjon-bgrs) - Consider Mediterranean diet supplemented with nuts Smoking and Tobacco Use: - Strongly recommend smoking and tobacco use cessation to reduce risk of stroke. - Counseling, nicotine products, and oral smoking cessation medications are effective for helping smokers quit and can be provided if needed. Alcohol Consumption: - Patients with ischemic stroke or TIA who drink greater than or equal to 2 alcoholic drinks a day, should eliminate alcohol use or reduce their consumption of alcohol to less than equal to 1 alcohol drink per day to reduce stroke risk Exercise - In patients with stroke or TIA who are capable of physical activity, engaging in at least moderate-intensity aerobic activity for a minimum of 10 minutes 4 times a week or vigorous-intensity aerobic activity for a minimum of 20 minutes twice a week is indicated to lower the risk of recurrent stroke - In patients with deficits after stroke that impair their ability to exercise, supervision of an exercise program by a health long term acute care registered nurse such as a physical therapist or cardiac rehabilitation professional, in addition to routine rehabilitation, can be beneficial for secondary stroke prevention - In individuals with stroke or TIA who sit for long periods of uninterrupted time during the day, it may be reasonable to recommend breaking up sedentary time with intervals as short as 3 minutes of standing or light exercise every 30 minutes for their cardiovascular health Adapted from the [place] Heart Association/[employer] Stroke Association: 2021 Guideline for the Prevention of Stroke in Patients With Stroke and Transient Ischemic Attack documented in this encounter [facility] 11-22-2024 History of Present illness Narrative Images from the original note were not included. [facility] Initial Visit Consultation is requested by: Ara Cox [address] [facility] [id number] PCP: Cecile Luis [address] [place] [address] CEREBROVASCULAR HISTORY History of Event: Reason for visit (patient's understanding): Referral Specific Question for today: Prevention, Prognosis? Will she get back to her baseline? PCP: Cecile Luis CATERING ADMINISTRATIVE ASSISTANT Accompanied with today: Self Stroke date: Antiplatelets/Anticoagulants: Denies Cholesterol medication: Denies Tobacco and alcohol use: Socially Residual Deficits: Elevated D-Dimer, Dizziness, visual changes, swollen otic nerves, R field visual loss in both eyes ( better on the right today), L arm numbness, pinching headaches starting in the back of the head up to left eye, coordination is bad (slow) brain fog, nausea, balance is off (L). Looses complete sight in L eye when she gets dizzy. Memory issues (short). 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 No Delmi Davidson RN RN completing documentation ========= # HPI 29 y/o W with h/o anxiety, asthma, and ocular migraine, referred due to finding of MRI brain concerning remote infarct. 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 From 11/08/24, she has been having blurry vision, headache, bilateral arms/hands paresthesia, pulsatile tinnitus. Also reports photophobia and nausea with headache - reported worse than her usual migraine. 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 She had MRI brain w/wo contrast 11/08/24 and 11/14/24 which showed left median occipital area T2/FLAIR change without obvious enhancement nor any changes in between those 2 images. No acute stroke was seen. Today, she visited clinic by herself. 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 She went to the ER, where blood work, chest X-ray, and EKG were performed. All results were normal except for an elevated D-dimer of 1800 ng/mL. A chest CT with contrast was also normal, and she was discharged. Later that day, she went to a different ER due to persistent dizziness, feeling out of it, and weakness in both hands, more pronounced in the left. She was evaluated for cardiac issues, found to be normal, and discharged. On November 08, she noticed difficulty seeing while driving and felt she had to move her head to right more to see. At work, an OCT showed mild optic nerve swelling, and visual field testing revealed right-sided field loss. She also began experiencing shooting headaches starting at the base of her neck and radiating upward, primarily on the left side. These headaches last from a few minutes to most of the day and are different from her usual migraines, which are more temporal and relieved by napping and taking Benadryl. Over the past two weeks, her right-sided visual field loss has improved, but she now reports new left-sided visual field loss, describing it as a bailey shape around her eye. She also notes increased light sensitivity, requiring sunglasses, which is new for her. She does not endorse fluctuating vision loss. She has experienced tinnitus, described as a weird sound on the right side, which began around the same time as her chest pain and has been constant for the past month. She also reports ongoing tingling and numbness in both arms and hands, with a recent increase in left arm numbness and perceived weakness. She underwent carpal tunnel testing earlier this year. She describes feeling foggy and slow in her head, though others do not notice this. She also reports generalized body pain and difficulty distinguishing between her usual menstrual symptoms and her current symptoms. She has experienced severe headaches that reach maximum intensity within seconds, triggered by bright lights, occurring 4-5 times in the past two weeks and previously 2-3 times per month over the past two years. She has a history of chest pain since August, leading to three ER visits. Workups, including EKGs, echocardiogram, blood work, X-rays, and a CT scan, were normal. She has a cardiology appointment in November and is also following up with a GI doctor for esophageal issues. She has a family history of ?clotting disorders on both sides, with maternal uncles having heart clots and one uncle having two strokes and a heart attack. Her paternal grandmother had an aneurysm in her heart and a clot in her ?right ear, resulting in deafness. All family members with heart problems were under 45 years old. She has no personal history of clots or miscarriages and is not currently on estrogen-containing medications. She was on estrogen control pills from ages 14 to 23 and had an IUD for six months. She was recently prescribed sumatriptan but has not started it yet. She is currently taking omeprazole. PAST MEDICAL HISTORY Diagnosis Date anxiety Asthma (HCC) sports induced. No attacks since age 16 depression PAST SURGICAL HISTORY Procedure Laterality Date INSERTION OF IUD 07/15/2020 Mirena PAST SURGICAL HISTORY OF wisdom teeth and root canal PAST SURGICAL HISTORY OF Right 03/09/2023 Heel spur removed and tendon cut for plantar fasciitis FAMILY HISTORY Problem Relation Age of Onset Asthma Mother other (Other tachycardia) Mother other (Other, hernia surgery) Father other (Other irregular heart rate) Father No Known Problems Sister Asthma Sister No Known Problems Brother Asthma Brother Cancer Maternal Grandmother skin cancer No Known Problems Maternal Grandfather Heart Paternal Grandmother other (benign tumor of ear) Paternal Grandmother No Known Problems Paternal Grandfather No Known Problems Son Heart Attack Maternal Uncle 37 Heart Attack Maternal Uncle Social History Tobacco Use Smoking status: Never Smokeless tobacco: Never Vaping Use Vaping status: Never Used Substance Use Topics Alcohol use: Not Currently Comment: occasionally but not while Drug use: No MEDICATIONS Current Outpatient Medications Medication Sig FLUoxetine (PROZAC) 20 mg capsule Take 1 capsule by mouth once daily. omeprazole (PRILOSEC) 20 mg capsule Take 1 capsule by mouth daily before breakfast. 1/2 hr before meal. topiramate (TOPAMAX) 25 mg tablet Take 1 tablet by mouth two times a day. SUMAtriptan (IMITREX) 50 mg tablet Take 1 tablet by mouth as needed for migraine headache (see administration instructions) (at onset of headache. May repeat after 2 hours.). May repeat dose after 2 hours if needed. Maximum daily dose is 200 mg per day. traZODone (DESYREL) 50 mg tablet Take 1 tablet by mouth daily at bedtime. cetirizine (ZYRTEC) 10 mg tablet Take 10 mg by mouth as needed. fluticasone (FLONASE ALLERGY RELIEF) 50 mcg/actuation nasal spray Use 1 [place] in each nostril two times a day. diphenhydramine HCl (BENADRYL ORAL) Take by mouth. No current facility-administered medications for this visit. ALLERGIES ALLERGIES Allergen Reactions Amoxicillin Unknown When she was a child Dicyclomine Intolerance Patient reports causes migraines Seasonal Allergies Itching PHYSICAL EXAMINATION BP 125/71 (BP Site: Right Arm, BP Position: Sitting, BP Cuff Size: Regular Adult) Pulse 80 Resp 14 Ht 157.5 cm (5' 2) Wt 70.3 kg (155 lb) LMP 07/21/2024 (Approximate) SpO2 100% BMI 28.35 kg/m Neurological exam Mental status: Alert, oriented to time, place, and person.No RL confusion. Intact attention. Language: intact comprehension, fluency, naming, reading CN: pupils symmetric and response to light b/l symmetric. EOM full, VFF on confrontation test. Face sensory intact to light touch b/l. Face symmetric. Hearing intact to finger rub b/l. Tongue midline. No dysarthria Motor: tone and bulk normal. No pronator drift b/l. 5/5 throughout. Sensory: intact to light touch b/l UE/LE Coordination: intact FTN b/l Gait: stable, narrow based Diabetes: Hemoglobin A1C (%) Date Value 09/22/2023 4.4 DIAGNOSTICS TTE 10/30/24 - Exam indication: Chest Pain - The left ventricle is normal in size. Left ventricular systolic function is normal. EF = 56 5% (2D biplane) Normal left ventricular diastolic function. GLS= -17.7% Normal. - The right ventricle is normal in size. Right ventricular systolic function is normal. - The left atrial cavity is mildly dilated. - There are no significant valvular abnormalities. - The patient has not had a prior CC echocardiographic exam for comparison. TCD bubble 11/22/24 Multiple microembolic events were detected in the insonated bilateral MCAs upon injection of 10 cc of agitated saline. This exam is positive for right to left shunt. Functional right to left shunt size*: Grade I: Small-medium MRI brain w/wo contrast 11/08/24 MRI brain w/wo contrast 11/14/24 VF 11/08/24 VF 11/09/24 VF 11/12/24 Patient Entered Questionnaires 11/15/2024 Health Status Impact by Stroke or CVD Impact Somewhat PROMIS/NeuroQoL Score Percentiles 11/15/2024 Physical Health Physical Function Percentile 12 Sleep Percentile 34 Fatigue Percentile 8 Pain Interference Percentile 5 11/15/2024 PROMIS SOCIAL ROLE SCORE Social Role Satisfaction Percentile 16* 11/15/2024 Mental Health General Self-Efficacy Percentile 24* 11/08/2024 07/27/2024 01/31/2024 PROMIS Global Health Scale Physical Health Percentile 53 41 31 Mental Health Percentile 34 9 9 Patient-reported Percentiles provide an indication of how a patient's score ranks in relation to the [place] general population. > 31st percentile is within normal limits or better * < 31st percentile is at least SD worse than population, which may be clinically relevant < 16th percentile is at least 1 SD worse than population and warrants attention Descriptive Summary for PROMIS Physical Function T-score = 38 (Percentile 12) Much difficulty - Do 2 hours of physical labor. Some difficulty - Walk more than a mile (1.6 km). Depression Screenin11/15/2024 11/08/2024 07/27/2024 PHQ-9 Score 13 3 0 Self-Harm Response Several days Not at all Not at all PHQ-9 Scores: PHQ-9 Self-Harm (Item 9) Response: 0 - 9 No to Mild depression 0 - Not at all 10 - 14 Moderate depression 1 - Several Days > 15 Severe depression 2 - More than half the days 3 - Nearly every day 11/15/2024 Sleep Apnea Probability Score Probability (%) 8 (Sleep study not recommended) ASSESSMENT AND PLAN Patient was referred for a concern of stroke. Patient recently started having visual disturbances from 11/08/24 initially started more of right side of the visual field on both eyes (but noted some patch area on the left visual field as well - above VF), later the visual field defect had improved in over 4 days per the visual field testing in our system (only available OD). Now she notice more visual disturbance on the left side. MRI brain was obtained on 11/08/24 and 11/14/24 without acute finding, but noted T2/FLAIR changes in small left occipital area as above, concerning possible remote infarct. She does reports strong family history of heart disease and stroke in young age.She was previously on estrogen containing OCP. Patient also has multiple other associated symptoms, chest pain, tinnitus (R), bilateral hands tingling/numbness, brain fog, generalized pain. In regard to her recent symptom of ?right homonymous hemianopsia, not likely TIA or stroke. MRI did not reveal any stroke correlating with the symptom onset. She does have very small occipital lobe T2/FLAIR change without diffusion restriction seen both MRIs 11/08 and 11/14. This would not explain newly onset vision impairment. Also the visual impairment seems overall changing its features from mostly on R side of the VF and now she feels more on the L side of the VF. Possible migraine symptoms. As for MRI brain finding of possible remote small infarct, will do stroke work up. TTE was obtained without bubble study but noted normal EF and mildly dilated LA. While she is young, she was on estrogen containing medication which could have contributed. Also she was noted to have elevated D-dimer. She was negative for PE but DVT study was not obtained. Stroke etiology cryptogenic. - Start taking aspirin 81mg daily - CTA H/N, CTV - LDL, A1C - TCD bubble - Hypercoagulable work up - DVT study - Zio Patch - Avoid using triptan nor estrogen containing medication - Will refer to headache clinic - Continue following with ophthalmology - Continue following with PCP and industrial plant custodian for chest pain - RTC 6 weeks Recording using InVision software for draft documentation of the visit was discussed with the patient/authorized account development representative; all questions welcomed and answered. Patient/authorized account development representative agreed to proceed I spent a total of 90 minutes on the date of service which included preparing to see the patient, [id number] patient care, completing clinical documentation, obtaining and/or reviewing separately obtained history, performing a medically appropriate examination, counseling and educating the patient/family/caregiver, and ordering medications, tests, or procedures SIGNATURE Flavio Navarrete MD [facility] [address] [facility] / [address] [place] [id number] Office: [phone] Ara Cox [address] [place], [place] [id number] Cecile Luis [address] [place] [address] documented in this encounter [facility] 11-22-2024 Note HNO ID: [id number] Author: FLAVIO NAVARRETE MD Service: ? Author Type: Physician Type: Progress Notes Filed: 11/22/2024 17:13 Note Text: [facility] Initial Visit Consultation is requested by: Ara Cox [address] [place], [place] [id number] PCP: Cecile Luis [address] [place] [address] CEREBROVASCULAR HISTORY History of Event: Reason for visit (patient's understanding): Referral Specific Question for today: Prevention, Prognosis? Will she get back to her baseline? PCP: Cecile Luis CATERING ADMINISTRATIVE ASSISTANT Accompanied with today: Self Stroke date: Antiplatelets/Anticoagulants: Denies Cholesterol medication: Denies Tobacco and alcohol use: Socially Residual Deficits: Elevated D-Dimer, Dizziness, visual changes, swollen otic nerves, R field visual loss in both eyes ( better on the right today), L arm numbness, pinching headaches starting in the back of the head up to left eye, coordination is bad (slow) brain fog, nausea, balance is off (L). Looses complete sight in L eye when she gets dizzy. Memory issues (short). 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 No Delmi Davidson RN RN completing documentation ========= # HPI 29 y/o W with h/o anxiety, asthma, and ocular migraine, referred due to finding of MRI brain concerning remote infarct. 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 From 11/08/24, she has been having blurry vision, headache, bilateral arms/hands paresthesia, pulsatile tinnitus. Also reports photophobia and nausea with headache - reported worse than her usual migraine. 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 She had MRI brain w/wo contrast 11/08/24 and 11/14/24 which showed left median occipital area T2/FLAIR change without obvious enhancement nor any changes in between those 2 images. No acute stroke was seen. Today, she visited clinic by herself. 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 She went to the ER, where blood work, chest X-ray, and EKG were performed. All results were normal except for an elevated D-dimer of 1800 ng/mL. A chest CT with contrast was also normal, and she was discharged. Later that day, she went to a different ER due to persistent dizziness, feeling out of it, and weakness in both hands, more pronounced in the left. She was evaluated for cardiac issues, found to be normal, and discharged. On November 08, she noticed difficulty seeing while driving and felt she had to move her head to right more to see. At work, an OCT showed mild optic nerve swelling, and visual field testing revealed right-sided field loss. She also began experiencing shooting headaches starting at the base of her neck and radiating upward, primarily on the left side. These headaches last from a few minutes to most of the day and are different from her usual migraines, which are more temporal and relieved by napping and taking Benadryl. Over the past two weeks, her right-sided visual field loss has improved, but she now reports new left-sided visual field loss, describing it as a bailey shape around her eye. She also notes increased light sensitivity, requiring sunglasses, which is new for her. She does not endorse fluctuating vision loss. She has experienced tinnitus, described as a weird sound on the right side, which began around the same time as her chest pain and has been constant for the past month. She also reports ongoing tingling and numbness in both arms and hands, with a recent increase in left arm numbness and perceived weakness. She underwent carpal tunnel testing earlier this year. She describes feeling foggy and slow in her head, though others do not notice this. She also reports generalized body pain and difficulty distinguishing between her usual menstrual symptoms and her current symptoms. She has experienced severe headaches that reach maximum intensity within seconds, triggered by bright lights, occurring 4-5 times in the past two weeks and previously 2-3 times per month over the past two years. She has a history of chest pain since August, leading to three ER visits. Workups, including EKGs, echocardiogram, blood work, X-rays, and a CT scan, were normal. She has a cardiology appointment in November and is also following up with a GI doctor for esophageal issues. She has a family history of ?clotting disorders on both sides, with maternal uncles having heart clots and one uncle having two strokes a (more content not included)... [facility] 11-22-2024 Note HNO ID: [id number] Author: MAACRIO ARAUJO MD Service: ? Author Type: Physician Type: Procedures Filed: 12/14/2024 19:12 Note Text: Patient Name: Angelita Marley : 1995 Ordering Provider: FLAVIO NAVARRETE Indication: I63.9 Cerebral infarction, unspecified Type of Monitor: Extended Monitoring-Zio Patch Enrollment Dates: 11/22/2024-11/27/2024 EP STAFF ADDENDUM: IRHYTHM FINDINGS: Patient had a min HR of 40 bpm, max HR of 146 bpm, and avg HR of 66 bpm. Predominant underlying rhythm was Sinus Rhythm. Isolated SVEs were rare (<1.0%), SVE Couplets were rare (<1.0%), and no SVE Triplets were present. Isolated VEs were rare (<1.0%), and no VE Couplets or VE Triplets were present. Macario Araujo MD December 14, 2024 7:10 PM [facility] 11-20-2024 Telephone encounter Note The following approved medication requests have been transmitted electronically. Requested Prescriptions Pending Prescriptions Disp Refills FLUoxetine (PROZAC) 20 mg capsule 30 capsule 5 Sig: Take 1 capsule by mouth once daily. Cecile Luis APRN.CNP [facility] 11-20-2024 Miscellaneous Notes The following approved medication requests have been transmitted electronically. Requested Prescriptions Pending Prescriptions Disp Refills FLUoxetine (PROZAC) 20 mg capsule 30 capsule 5 Sig: Take 1 capsule by mouth once daily. Cecile Luis APRN.CNP Prescription Refill Information The patient has been identified by name and date of : Yes Caregiver verified no other encounters exist for this prescription request: Yes Caregiver confirmed with patient/requestor that no other refills are due, in the near future, with this provider at this time: Yes The last office visit in the department: 11/08/24 Does the patient have a future office visit with this provider/department: Yes 12/21/24 Requested Prescriptions Pending Prescriptions Disp Refills FLUoxetine (PROZAC) 20 mg capsule 30 capsule 5 Sig: Take 1 capsule by mouth once daily. Leticia Murrieta LPN November 19, 2024 6:34 PM documented in this encounter [facility] 11-19-2024 Telephone encounter Note Prescription Refill Information The patient has been identified by name and date of : Yes Caregiver verified no other encounters exist for this prescription request: Yes Caregiver confirmed with patient/requestor that no other refills are due, in the near future, with this provider at this time: Yes The last office visit in the department: 11/08/24 Does the patient have a future office visit with this provider/department: Yes 12/21/24 Requested Prescriptions Pending Prescriptions Disp Refills FLUoxetine (PROZAC) 20 mg capsule 30 capsule 5 Sig: Take 1 capsule by mouth once daily. Leticia Murrieta LPN November 19, 2024 6:34 PM [facility] 11-19-2024 Progress note Formatting of t his note might be different from the original. No inflammatory arthritis such as rheumatoid or psoriatic. X-ray of the wrists and hands are normal. [facility] 11-19-2024 Miscellaneous Notes No inflammatory arthritis such as rheumatoid or psoriatic. X-ray of the wrists and hands are normal. Labs are normal. B12 ok. Thyroid screen normal. Blood counts normal. documented in this encounter [facility] 11-16-2024 Telephone encounter Note Images from the original note were not included. OS imaging/records received from [facility]: November 16, 2024 -2024 Records available in Care Everywhere -2024 Images OSH imaging/records received from [facility]: November 16, 2024 -[id number] Records available in Care Everywhere PENDING: - Images [facility] 11-16-2024 Miscellaneous Notes Images from the original note were not included. OSH imaging/records received from [facility]: November 16, 2024 Records available in Care Everywhere -2024 Images OSH imaging/records received from [facility]: November 16, 2024 - Records available in Care Everywhere PENDING: - Images documented in this encounter [facility] 11-14-2024 History of Present illness Narrative Radiology Service Progress Note DATE OF SERVICE: November 14, 2024 TIME: 10:46 AM PATIENT IDENTITY VERIFICATION COMPLETED USING TWO (2) STANDARD IDENTIFIERS: Name and Date of confirmed by patient verbally. FALL SCREENING: Has the patient had 2 falls in the last year or 1 fall with injury or currently using an Ambulatory Assistive Device (Walker, Cane, Wheelchair, Crutches, etc.)? No PATIENT GENDER DATA: Assigned female at . status: : No status: NO. PATIENT RELEVANT IMPLANT DATA REVIEWED: Yes PATIENT PRESENTS WITH AN IMPLANTABLE OR ATTACHED INFORMATION SYSTEMS AUDITOR: No ALLERGIES: Reviewed and unchanged CONTRAST ALLERGY: NO. EXAM: MRI - CONTRAST TYPE: GROUP II PERIPHERAL IV DATA: Ambulatory: A peripheral IV was started in the Right antecubital site with a Angio cath: 22 gauge. RADIOLOGY DEPARTMENT: MR; Exam(s) Completed: Head: Orbit/Sinus. Aromatherapy Administered: No SIGNATURE: EDILMA Gallardo) PATIENT NAME: Angelita Marley DATE: November 14, 2024 TIME: 10:46 AM documented in this encounter [facility] 11-14-2024 Note HNO ID: [id number] Author: CLAUS HEARD RT(R) Service: ? Author Type: Technologist Type: Progress Notes Filed: 11/14/2024 10:46 Note Text: Radiology Service Progress Note DATE OF SERVICE: November 14, 2024 TIME: 10:46 AM PATIENT IDENTITY VERIFICATION COMPLETED USING TWO (2) STANDARD IDENTIFIERS: Name and Date of confirmed by patient verbally. FALL SCREENING: Has the patient had 2 falls in the last year or 1 fall with injury or currently using an Ambulatory Assistive Device (Walker, Cane, Wheelchair, Crutches, etc.)? No PATIENT GENDER DATA: Assigned female at . status: : No status: NO. PATIENT RELEVANT IMPLANT DATA REVIEWED: Yes PATIENT PRESENTS WITH AN IMPLANTABLE OR ATTACHED INFORMATION SYSTEMS AUDITOR: No ALLERGIES: Reviewed and unchanged CONTRAST ALLERGY: NO. EXAM: MRI - CONTRAST TYPE: GROUP II PERIPHERAL IV DATA: Ambulatory: A peripheral IV was started in the Right antecubital site with a Angio cath: 22 gauge. RADIOLOGY DEPARTMENT: MR; Exam(s) Completed: Head: Orbit/Sinus. Aromatherapy Administered: No SIGNATURE: RT Sami(R) PATIENT NAME: Angelita Marley DATE: November 14, 2024 TIME: 10:46 AM [facility] 11-13-2024 Note HNO ID: [id number] Author: ARA COX MD Service: ? Author Type: Physician Type: Progress Notes Filed: 11/13/2024 16:38 Note Text: Colleen spoke to Dr. Chen, patient left the ED AMA. Dr. Chen stated the MRI from [facility] was very poor quality and wanted it repeated. I will order MRI brain w/wo with concentration on the left Lateral Geniculate Nucleus. [facility] 11-13-2024 Note Date of Procedure 11/12/2024. Hot Plate Plywood Press Operator Information Business Management Analyst: JOSE. Start time: 12:53 PM. Stop time: 1:08 PM. PT IS NOT ALLERGIC TO ADHESIVE. Interpretation Right Eye Homonymous hemianopsia. Left Eye Homonymous hemianopsia. Interval Change Right Eye Worse. Left Eye Worse. [facility] 11-12-2024 Hospital Discharge instructions Flaquita Durbin PA-C - 11/12/2024 7:22 PM EDT You need to go to your specialist and do as instructed. The following attachments cannot be sent through Care Everywhere.STROKE OVERVIEW HANDOUTdocumented in this encounter [facility] Work Phone: 11-12-2024 Note HNO ID: [id number] Author: NATALIO WATKINS, DO Service: ? Author Type: Physician Type: Progress Notes Filed: 11/13/2024 08:53 Note Text: New patient here for evaluation of R homonymous hemianopia Course: - 11/09/2024: seen by ophthalmology for one day history of blurry vision with headache for 3 days and numbness/tingling of both arms/hands with pulsatile tinnitus - Pt reports fogginess of her vision 4 days ago, no flashing lights, numerous new floaters. Endorses headache that starts at base of neck to temples with blobs and blurry border in her vision that move with her eyes. No diplopia or pain with eye movements. Pulsatile tinnitus OD. Non positional. - Endorses nausea, light sensitivity with headache. Says has history of ocular migraine but this episode is more severe. Says normally able to sleep off ocular migraine but now unable. - Denies vitamin A, tetracyclines, steroids usage, OCPs. Medical Hx: anxiety Recent Neuro-Imaging: - MRI brain w/wo (11/08/2024):No diffusion restriction abnormality is present to suggest a recent infarct. There is no evidence of recent intracranial hemorrhage. No mass effect or midline shift is present. There is no evidence of hemosiderin staining. No pathologic intracranial enhancement is identified. Dural venous sinuses demonstrate expected enhancement without evidence of filling defect/thrombus. Recent LP: none Lab Workup: - WNL / NEGATIVE: TSH, B12 - ABNORMAL / POSITIVE: none EXAM: - Pupils: Normal - Colors (Ishihara): 11/09 OD and 01/10 OS - Ortho - EOM: full both eyes; no pain with eye movement - right eye: good - left eye: good - Prism Msmt: none - Nystagmus: none - V1,2,3 with reduced sensation R-side of face - Normal and symmetric upper and lower facial movement - Denies imbalance, vertigo, tinnitus - Normal and symmetric shoulder shrug - Normal XII ASSESSMENT/PLAN: Headaches (ocular migraine vs IIH) Shortness of breath R homonymous hemianopia - Pt with headaches that sound like mixture between IIH and ocular migraine with scintillating scotomas and pulsatile tinnitus - VA good and color symmetric - Testing with persistent R homonymous hemianopia from previous testing - OS appears like LGN/tract infarct from anterior circulation? - MRI without any defects from outside read - HVF with evolving R homonymous hemianopia - In setting of shortness of breath with evolving R homonymous hemianopia - recommend going to the ED for repeat MRI brain, PE rule out, and potential embolic workup. Would need to check for PFO or VSD because of possibility of paradoxical embolus. ED was alerted. Visual field loss (primary encounter diagnosis) I have confirmed and edited as necessary the relevant HPI, ophthalmic history, ROS, and the neuro exam findings as obtained by others. I have seen and examined Angelita Marley. I have discussed the case and the management of this patient's care with the Resident/Fellow, if applicable. I also have reviewed and agree with the assessment and plan as stated above and agree with all of its relevant components. [facility] 11-12-2024 History of Present illness Narrative New patient here for evaluation of R homonymous hemianopia Course: - 11/09/2024: seen by ophthalmology for one day history of blurry vision with headache for 3 days and numbness/tingling of both arms/hands with pulsatile tinnitus - Pt reports fogginess of her vision 4 days ago, no flashing lights, numerous new floaters. Endorses headache that starts at base of neck to temples with blobs and blurry border in her vision that move with her eyes. No diplopia or pain with eye movements. Pulsatile tinnitus OD. Non positional. - Endorses nausea, light sensitivity with headache. Says has history of ocular migraine but this episode is more severe. Says normally able to sleep off ocular migraine but now unable. - Denies vitamin A, tetracyclines, steroids usage, OCPs. Medical Hx: anxiety Recent Neuro-Imaging: - MRI brain w/wo (11/08/2024):No diffusion restriction abnormality is present to suggest a recent infarct. There is no evidence of recent intracranial hemorrhage. No mass effect or midline shift is present. There is no evidence of hemosiderin staining. No pathologic intracranial enhancement is identified. Dural venous sinuses demonstrate expected enhancement without evidence of filling defect/thrombus. Recent LP: none Lab Workup: - WNL / NEGATIVE: TSH, B12 - ABNORMAL / POSITIVE: none EXAM: - Pupils: Normal - Colors (Ishihara): 7/11 OD and 9/11 OS - Ortho - EOM: full both eyes; no pain with eye movement - right eye: good - left eye: good - Prism Msmt: none - Nystagmus: none - V1,2,3 with reduced sensation R-side of face - Normal and symmetric upper and lower facial movement - Denies imbalance, vertigo, tinnitus - Normal and symmetric shoulder shrug - Normal XII ASSESSMENT/PLAN: Headaches (ocular migraine vs IIH) Shortness of breath R homonymous hemianopia - Pt with headaches that sound like mixture between IIH and ocular migraine with scintillating scotomas and pulsatile tinnitus - VA good and color symmetric - Testing with persistent R homonymous hemianopia from previous testing - OS appears like LGN/tract infarct from anterior circulation? - MRI without any defects from outside read - HVF with evolving R homonymous hemianopia - In setting of shortness of breath with evolving R homonymous hemianopia - recommend going to the ED for repeat MRI brain, PE rule out, and potential embolic workup. Would need to check for PFO or VSD because of possibility of paradoxical embolus. ED was alerted. Visual field loss (primary encounter diagnosis) I have confirmed and edited as necessary the relevant HPI, ophthalmic history, ROS, and the neuro exam findings as obtained by others. I have seen and examined Angelita Marley. I have discussed the case and the management of this patient's care with the Resident/Fellow, if applicable. I also have reviewed and agree with the assessment and plan as stated above and agree with all of its relevant components. documented in this encounter [facility] 11-09-2024 Instructions Ara Cox MD - 11/09/2024 10:08 AM EDT If you have any questions please contact our office at [phone]. After office hours or on the weekend, please call Dr. Cox on his cell phone at [phone]. documented in this encounter [facility] 11-09-2024 Note HNO ID: [id number] Author: ARA COX MD Service: ? Author Type: Physician Type: Progress Notes Filed: 11/09/2024 10:10 Note Text: ASSESSMENT/PLAN: 1. Visual field loss - ICD9: 368.40, ICD10: H53.40 Right Hemianopsia Both Eyes - VISUAL FIELD 24-2 OU (BOTH EYES) - OCT OPTIC NERVE CIRRUS OU (BOTH EYES) - FUNDUS PHOTOS OU (BOTH EYES) Will discuss will discuss with Dr. Watkins. Instructed patient to call CAROL with any changes. I have confirmed and edited as necessary the relevant HPI, ophthalmic history, ROS, and the neuro exam findings as obtained by others. I have seen and examined Angelita Marley. I have discussed the case and the management of this patient's care with the Resident/Fellow, if applicable. I also have reviewed and agree with the assessment and plan as stated above and agree with all of its relevant components. [facility] 11-09-2024 Note Date of Procedure 11/09/2024. 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 C/D Ratio Right Eye 0.2. Left Eye 0.3 x 0.2. Disc Right Eye Cupping. Left Eye Cupping. Macula Right Eye Normal. Left Eye Normal. Periphery Right Eye Normal. Left Eye Normal. [facility] 11-09-2024 History of Present illness Narrative ASSESSMENT/PLAN: 1. Visual field loss - ICD9: 368.40, ICD10: H53.40 Right Hemianopsia Both Eyes - VISUAL FIELD 24-2 OU (BOTH EYES) - OCT OPTIC NERVE CIRRUS OU (BOTH EYES) - FUNDUS PHOTOS OU (BOTH EYES) Will discuss will discuss with Dr. Watkins. Instructed patient to call CAROL with any changes. I have confirmed and edited as necessary the relevant HPI, ophthalmic history, ROS, and the neuro exam findings as obtained by others. I have seen and examined Angelita Marley. I have discussed the case and the management of this patient's care with the Resident/Fellow, if applicable. I also have reviewed and agree with the assessment and plan as stated above and agree with all of its relevant components. documented in this encounter [facility] 11-09-2024 Note Date of Procedure 11/09/2024. Quality Right Eye Good. Left Eye Good. NFL Interpretation Right Eye Normal. Left Eye Normal. Ganglion Cell Layer Thickness Right Eye Normal. Left Eye Normal. [facility] 11-09-2024 Note Date of Procedure 11/09/2024. 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 Interpretation Right Eye Comments: (Right hemianopsia). Left Eye Comments: (Right hemianopsia). [facility] 11-09-2024 Progress note Formatting of t his note might be different from the original. Labs are normal. B12 ok. Thyroid screen normal. Blood counts normal. [facility] 11-08-2024 Hospital Discharge instructions Maxi Castrejon PA-C - 11/08/2024 9:15 PM EDT It is recommended that you be transferred to [facility] to see ophthalmology tonight. At this time you are declining transfer. You will will be leaving AGAINST MEDICAL ADVICE. There are risks involved with this including worsening condition, vision loss, disability, and any and all unforeseen events. You have verbalized understanding of the risks. It is extremely important that you follow-up with ophthalmology tomorrow since he will not be evaluated by ophthalmology this evening. Return for any new or worsening symptoms. The following attachments cannot be sent through Care Everywhere.STROKE OVERVIEW HANDOUTHeadache, Adult ED ([place])documented in this encounter [facility] Work Phone: 11-08-2024 manager pmo Note Nonsmoker [facility] 11-08-2024 Miscellaneous Notes Nonsmoker documented in this encounter [facility] Work Phone: 11-08-2024 Consult note Associated Order (s): Inpatient consult to Neuro TeleStroke Inpatient consult to Neuro TeleStroke Consult performed by: Jonah Perez MD Consult ordered by: Maxi Castrejon PA-C Virtual Visit start time: 634pm History Of Present Illness: Historian: Patient and ED Provider Angelita Marley is a 29 y.o. female presenting with acute onset right sided vision loss involving both eyes, started at 8 AM today. History of anxiety and hand ED visit for severe chest pain for the past couple of days and underwent extensive workup which was negative. Chest pain is better today but started to have headache which is different from her usual migraines-located in the back radiating to temples. No photophobia. Does have nausea.. 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 Stroke Risk Factors: None Last Recorded Vitals: Blood pressure (!) 138/100, pulse 74, temperature 36.7 C (98 F), resp. rate 18, height 1.581 m (5' 2.25), weight 72.6 kg (160 lb), SpO2 97%. Physical Exam: Awake, alert, oriented. Normal speech and language. Normal gaze. Endorses right homonymous hemianopia on RN's testing. Symmetric face. No drift in any of the extremities. No ataxia. Intact sensation [facility] NIHSS: NIH Stroke Scale: 1A. Level of Consciousness: Alert (keenly responsive) (0) 1B. Ask Month and Age: Both questions right (0) 1C. Blink Eyes & Squeeze Hands: Performs both tasks (0) 2. Best Gaze: Normal (0) 3. Visual: Complete hemianopia (+2) 4. Facial Palsy: Normal symmetry (0) 5A. Motor - Left Arm: No drift (0) 5B. Motor - Right Arm: No drift (0) 6A. Motor - Left Leg: No drift (0) 6B. Motor - Right Leg: No drift (0) 7. Limb Ataxia: No ataxia (0) 8. Sensory Loss: Normal (no sensory loss) (0) 9. Best Language: Normal (no aphasia) (0) 10. Dysarthia: Normal (0) 11. Extinction and Inattention: No abnormality (0) NIH Stroke Scale: 2 Relevant Results: LABS: No results found for: GLUCOSE, INR Results for orders placed or performed during the hospital encounter of 11/08/24 (from the past 24 hours) POCT GLUCOSE Result Value Ref Range POCT Glucose 97 74 - 99 mg/dL POCT glucose Result Value Ref Range POCT Glucose 97 74 - 99 mg/dL CT Head Imaging: CTH imaging personally reviewed, showed no acute ischemic / hemorrhagic changes CTA Head and Neck Imaging: CTA imaging not performed Diagnosis: Stroke not suspected, alternative etiology likely Assessment/Plan: 29-year-old presenting with no cerebrovascular risk factors presenting with acute right homonymous hemianopia, persistent since [address] head negative for any acute ischemic or hemorrhagic changes. Consider MRI brain with and without contrast to further evaluate the etiology and further work up accordingly. IV Thrombolysis IV Thrombolysis Checklist IV Thrombolysis Given: No; Thrombolysis contraindication reason: Time from Last Known Well (or stroke onset) is >4.5 hours Disposition: Patient will remain at referring facility for further evaluation and management. Virtual or Telephone Consent An interactive audio and video telecommunication system which permits real time communications between the patient (at the originating site) and provider (at the distant site) was utilized to provide this telehealth service. Verbal consent was requested and obtained from Angelita Marley on this date, 11/08/24 for a telehealth visit. Telestroke is covered in shift work. If there are further Neurological questions or concerns please contact your regional neurologist director of cardiopulmonary services during daytime hours or contact the transfer center with an ADT20 order. Jonah Perez MD [facility] Work Phone: 11-08-2024 Consult note Associated Order (s): Inpatient consult to Neuro TeleStroke Inpatient consult to Neuro TeleStroke Consult performed by: Jonah Perez MD Consult ordered by: Maxi Castrejon PA-C Virtual Visit start time: 634pm History Of Present Illness: Historian: Patient and ED Provider Angelita Marley is a 29 y.o. female presenting with acute onset right sided vision loss involving both eyes, started at 8 AM today. History of anxiety and hand ED visit for severe chest pain for the past couple of days and underwent extensive workup which was negative. Chest pain is better today but started to have headache which is different from her usual migraines-located in the back radiating to temples. No photophobia. Does have nausea.. 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 Stroke Risk Factors: None Last Recorded Vitals: Blood pressure (!) 138/100, pulse 74, temperature 36.7 C (98 F), resp. rate 18, height 1.581 m (5' 2.25), weight 72.6 kg (160 lb), SpO2 97%. Physical Exam: Awake, alert, oriented. Normal speech and language. Normal gaze. Endorses right homonymous hemianopia on RN's testing. Symmetric face. No drift in any of the extremities. No ataxia. Intact sensation [facility] NIHSS: NIH Stroke Scale: 1A. Level of Consciousness: Alert (keenly responsive) (0) 1B. Ask Month and Age: Both questions right (0) 1C. Blink Eyes & Squeeze Hands: Performs both tasks (0) 2. Best Gaze: Normal (0) 3. Visual: Complete hemianopia (+2) 4. Facial Palsy: Normal symmetry (0) 5A. Motor - Left Arm: No drift (0) 5B. Motor - Right Arm: No drift (0) 6A. Motor - Left Leg: No drift (0) 6B. Motor - Right Leg: No drift (0) 7. Limb Ataxia: No ataxia (0) 8. Sensory Loss: Normal (no sensory loss) (0) 9. Best Language: Normal (no aphasia) (0) 10. Dysarthia: Normal (0) 11. Extinction and Inattention: No abnormality (0) NIH Stroke Scale: 2 Relevant Results: LABS: No results found for: GLUCOSE, INR Results for orders placed or performed during the hospital encounter of 11/08/24 (from the past 24 hours) POCT GLUCOSE Result Value Ref Range POCT Glucose 97 74 - 99 mg/dL POCT glucose Result Value Ref Range POCT Glucose 97 74 - 99 mg/dL CT Head Imaging: CT imaging personally reviewed, showed no acute ischemic / hemorrhagic changes CTA Head and Neck Imaging: CTA imaging not performed Diagnosis: Stroke not suspected, alternative etiology likely Assessment/Plan: 29-year-old presenting with no cerebrovascular risk factors presenting with acute right homonymous hemianopia, persistent since [address] head negative for any acute ischemic or hemorrhagic changes. Consider MRI brain with and without contrast to further evaluate the etiology and further work up accordingly. IV Thrombolysis IV Thrombolysis Checklist IV Thrombolysis Given: No; Thrombolysis contraindication reason: Time from Last Known Well (or stroke onset) is >4.5 hours Disposition: Patient will remain at referring facility for further evaluation and management. Virtual or Telephone Consent An interactive audio and video telecommunication system which permits real time communications between the patient (at the originating site) and provider (at the distant site) was utilized to provide this telehealth service. Verbal consent was requested and obtained from Angelita Marley on this date, 11/08/24 for a telehealth visit. Telestroke is covered in shift work. If there are further Neurological questions or concerns please contact your regional neurologist director of cardiopulmonary services during daytime hours or contact the transfer center with an ADT20 order. Jonah Perez MD documented in this encounter [facility] Work Phone: 11-08-2024 History of Present illness Narrative Radiology Service Progress Note PATIENT NAME: Angelita Marley DATE OF SERVICE: November 08, 2024 TIME: 9:51 AM PATIENT IDENTITY VERIFICATION COMPLETED USING TWO (2) IDENTIFIERS: Name and Date of confirmed by patient verbally. FALL SCREENING: Has the patient had 2 falls in the last year or 1 fall with injury or currently using an Ambulatory Assistive Device (Walker, Cane, Wheelchair, Crutches, etc.)? No PATIENT GENDER DATA: Assigned female at . status: : No status: NO. PATIENT RELEVANT IMPLANT DATA REVIEWED: Not Applicable PATIENT PRESENTS WITH AN IMPLANTABLE OR ATTACHED INFORMATION SYSTEMS AUDITOR: No RADIOLOGY DEPARTMENT: General X-ray: Exam(s) Completed: Upper Extremity X-Ray(s): Hand, bilateral 1vw bilat hand and wrist only PERIPHERAL IV DATA: Not applicable SIGNED BY: RT Neeru(Nancy) November 08, 2024 9:51 AM documented in this encounter [facility] 11-08-2024 Note HNO ID: [id number] Author: ELIER DE LA ROSA RT(Nancy) Service: ? Author Type: Technologist Type: Progress Notes Filed: 11/08/2024 10:05 Note Text: Radiology Service Progress Note PATIENT NAME: Angelita Marley DATE OF SERVICE: November 08, 2024 TIME: 9:51 AM PATIENT IDENTITY VERIFICATION COMPLETED USING TWO (2) IDENTIFIERS: Name and Date of confirmed by patient verbally. FALL SCREENING: Has the patient had 2 falls in the last year or 1 fall with injury or currently using an Ambulatory Assistive Device (Walker, Cane, Wheelchair, Crutches, etc.)? No PATIENT GENDER DATA: Assigned female at . status: : No status: NO. PATIENT RELEVANT IMPLANT DATA REVIEWED: Not Applicable PATIENT PRESENTS WITH AN IMPLANTABLE OR ATTACHED INFORMATION SYSTEMS AUDITOR: No RADIOLOGY DEPARTMENT: General X-ray: Exam(s) Completed: Upper Extremity X-Ray(s): Hand, bilateral 1vw bilat hand and wrist only PERIPHERAL IV DATA: Not applicable SIGNED BY: RT Neeru(R) November 08, 2024 9:51 AM [facility] 11-08-2024 Instructions Cecile Luis APRN.CNP - 11/08/2024 9:18 AM EDT - Start topiramate 25 mg twice daily for migraine prevention. Take half a tablet (12.5 mg) in the morning and half at night for 1 week; if your headaches improve, continue that dose. If they do not improve, increase to one full tablet (25 mg) twice daily. Be aware some people experience mild brain fog when starting this medication. - For acute migraine attacks, take sumatriptan (Imitrex) 50 mg at headache onset. If your headache persists after 1 hour, you may repeat one 50 mg dose. Do not exceed two doses in 24 hours or nine tablets per month. - Take omeprazole (Prilosec) 20 mg once daily to reduce stomach acid. Swallow one tablet first thing each morning on an empty stomach (water only) before eating or drinking anything else. - You may consider trying Excedrin (aspirin + acetaminophen + caffeine) at headache onset to help break the migraine cycle. Follow package directions and avoid overuse to prevent rebound headaches. - Get blood drawn today to check your vitamin B12 level. If your B12 is low, we will discuss starting supplements. - An arthritis survey X-ray has been ordered to evaluate your joints for possible rheumatoid arthritis. Schedule this imaging as soon as possible. - A referral to Dr. Restrepo (retail store associate at [facility]) has been sent for evaluation of possible esophageal spasms or narrowing. Call Dr. Wheeler s office to set up your GI appointment. Please fax referral - Start omeprazole 20 mg daily on empty stomach documented in this encounter [facility] 11-08-2024 Note HNO ID: [id number] Author: CECILE LUIS APRN.CNP Service: ? Author Type: Nurse Practitioner Type: Progress Notes Filed: 11/08/2024 09:20 Note Text: This is a 29 year old female who presents today with: Patient presents with: ER F/U: Er follow up HISTORY OF PRESENT ILLNESS: Angelita Marley is a 29 year old female. Patient presents with: ER F/U: Er follow up Angelita Marley is a 29-year-old female presenting for evaluation of chest pain, dysphagia, and headaches. Chest Pain: - Acute onset of severe chest pain woke her from sleep at 0400. - Pain described as extreme, with sensations of pressure and obstruction. - Pain localized to the chest, radiating to the back. - Pain lasted approximately one hour, worsening before subsiding upon arrival at the ER. - Associated symptoms: dyspnea, paresthesia in both hands, cold sensation, and nausea. - Denies cough or frequent throat clearing. - Family history of CAD in maternal grandmother and great-grandmother, both diagnosed after age 65. - Denies tobacco use. Dysphagia: - Angelita reports frequent sensation of food being stuck when eating, particularly with bread and meats. - Longstanding issue, dating back to childhood. - Takes Tums frequently for relief. Headaches: - Angelita has chronic headaches, with increased frequency and severity over the past month. - Describes headaches as starting at the base of the neck, radiating upwards, more severe on one side, and extending into the eye. - Associated symptoms: photophobia, nausea, and desire to rest in a dark, quiet environment. - Headaches last until she can nap; takes Benadryl and ibuprofen for relief. - Reports a constant headache for the past week. - Headaches often coincide with menstrual periods. - Experiences premonitory symptoms, including pain and swelling of lymph nodes behind the ears. 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 - Denies any previous diagnosis of migraines. Chronic Pain: - Angelita reports generalized body pain, including back, shoulders, elbows, and hands. - History of foot surgery and recent tailbone injury in January. - Describes hands as stiff, swollen, and weak, with persistent paresthesia. - Family history of rheumatoid arthritis in father. - Reports feeling like I have so much inflammation in my body. PAST MEDICAL HISTORY: PAST MEDICAL HISTORY Diagnosis Date anxiety Asthma (HCC) sports induced. No attacks since age 16 depression PAST SURGICAL HISTORY Procedure Laterality Date INSERTION OF IUD 07/15/2020 Mirena PAST SURGICAL HISTORY OF wisdom teeth and root canal PAST SURGICAL HISTORY OF Right 03/09/2023 Heel spur removed and tendon cut for plantar fasciitis ALLERGIES Amoxicillin, Dicyclomine, and Seasonal Allergies MEDICATIONS Current Outpatient Medications Medication Sig traZODone (DESYREL) 50 mg tablet Take 1 tablet by mouth daily at bedtime. cetirizine (ZYRTEC) 10 mg tablet Take 10 mg by mouth as needed. fluticasone (FLONASE ALLERGY RELIEF) 50 mcg/actuation nasal spray Use 1 [place] in each nostril two times a day. FLUoxetine (PROZAC) 20 mg capsule Take 1 capsule by mouth once daily. diphenhydramine HCl (BENADRYL ORAL) Take by mouth. No current facility-administered medications for this visit. FAMILY HISTORY Problem Relation Age of Onset Asthma Mother other (Other tachycardia) Mother other (Other, hernia surgery) Father other (Other irregular heart rate) Father No Known Problems Sister Asthma Sister No Known Problems Brother Asthma Brother Cancer Maternal Grandmother skin cancer No Known Problems Maternal Grandfather Heart Paternal Grandmother other (benign tumor of ear) Paternal Grandmother No Known Problems Paternal Grandfather No Known Problems Son Heart Attack Maternal Uncle 37 Heart Attack Maternal Uncle Social History Tobacco Use Smoking status: Never Smokeless tobacco: Never Vaping Use Vaping status: Never Used Substance Use Topics Alcohol use: Not Currently Comment: occasionally but not while Drug use: No REVIEW OF SYSTEMS Constitutional: (+) chills Head: (+) headache Eyes: (+) photophobia Cardiovascular: (+) chest pain Respiratory: (+) shortness of breath, (-) nocturnal cough Gastrointestinal: (+) dysphagia, (+) nausea Musculoskeletal: (+) back pain, (+) shoulder pain, (+) hand pain, (+) hand stiffness, (+) myalgias, (+) subjective hand swelling Neurological: (+) dizziness, (+) hand paresthesias, (+) hand weakness EXAM: BP 96/70 Pulse 62 Wt 72.6 kg (160 lb) LMP 07/21/2024 (Approximate) SpO2 100% BMI 29.26 kg/m? PHYSICAL EXAM: GENERAL: NAD, alert and oriented. SKIN: Unremarkable, no rash or skin lesions. HEAD: Normocephalic. LUNGS: Clear to auscultation bilaterally, no wheezes/rhonchi/rales. HEART: Regular rate and rhythm, no murmurs. No ectopy. EXTREMITIES: Normal, no (more content not included)... [facility] 11-08-2024 History of Present illness Narrative This is a 29 year old female who presents today with: Patient presents with: ER F/U: Er follow up HISTORY OF PRESENT ILLNESS: Angelita Marley is a 29 year old female. Patient presents with: ER F/U: Er follow up Angelita Marley is a 29-year-old female presenting for evaluation of chest pain, dysphagia, and headaches. Chest Pain: - Acute onset of severe chest pain woke her from sleep at 0400. - Pain described as extreme, with sensations of pressure and obstruction. - Pain localized to the chest, radiating to the back. - Pain lasted approximately one hour, worsening before subsiding upon arrival at the ER. - Associated symptoms: dyspnea, paresthesia in both hands, cold sensation, and nausea. - Denies cough or frequent throat clearing. - Family history of CAD in maternal grandmother and great-grandmother, both diagnosed after age 65. - Denies tobacco use. Dysphagia: - Angelita reports frequent sensation of food being stuck when eating, particularly with bread and meats. - Longstanding issue, dating back to childhood. - Takes Tums frequently for relief. Headaches: - Angelita has chronic headaches, with increased frequency and severity over the past month. - Describes headaches as starting at the base of the neck, radiating upwards, more severe on one side, and extending into the eye. - Associated symptoms: photophobia, nausea, and desire to rest in a dark, quiet environment. - Headaches last until she can nap; takes Benadryl and ibuprofen for relief. - Reports a constant headache for the past week. - Headaches often coincide with menstrual periods. - Experiences premonitory symptoms, including pain and swelling of lymph nodes behind the ears. 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 - Denies any previous diagnosis of migraines. Chronic Pain: - Angelita reports generalized body pain, including back, shoulders, elbows, and hands. - History of foot surgery and recent tailbone injury in January. - Describes hands as stiff, swollen, and weak, with persistent paresthesia. - Family history of rheumatoid arthritis in father. - Reports feeling like I have so much inflammation in my body. PAST MEDICAL HISTORY: PAST MEDICAL HISTORY Diagnosis Date anxiety Asthma (HCC) sports induced. No attacks since age 16 depression PAST SURGICAL HISTORY Procedure Laterality Date INSERTION OF IUD 07/15/2020 Mirena PAST SURGICAL HISTORY OF wisdom teeth and root canal PAST SURGICAL HISTORY OF Right 03/09/2023 Heel spur removed and tendon cut for plantar fasciitis ALLERGIES Amoxicillin, Dicyclomine, and Seasonal Allergies MEDICATIONS Current Outpatient Medications Medication Sig traZODone (DESYREL) 50 mg tablet Take 1 tablet by mouth daily at bedtime. cetirizine (ZYRTEC) 10 mg tablet Take 10 mg by mouth as needed. fluticasone (FLONASE ALLERGY RELIEF) 50 mcg/actuation nasal spray Use 1 [place] in each nostril two times a day. FLUoxetine (PROZAC) 20 mg capsule Take 1 capsule by mouth once daily. diphenhydramine HCl (BENADRYL ORAL) Take by mouth. No current facility-administered medications for this visit. FAMILY HISTORY Problem Relation Age of Onset Asthma Mother other (Other tachycardia) Mother other (Other, hernia surgery) Father other (Other irregular heart rate) Father No Known Problems Sister Asthma Sister No Known Problems Brother Asthma Brother Cancer Maternal Grandmother skin cancer No Known Problems Maternal Grandfather Heart Paternal Grandmother other (benign tumor of ear) Paternal Grandmother No Known Problems Paternal Grandfather No Known Problems Son Heart Attack Maternal Uncle 37 Heart Attack Maternal Uncle Social History Tobacco Use Smoking status: Never Smokeless tobacco: Never Vaping Use Vaping status: Never Used Substance Use Topics Alcohol use: Not Currently Comment: occasionally but not while Drug use: No REVIEW OF SYSTEMS Constitutional: (+) chills Head: (+) headache Eyes: (+) photophobia Cardiovascular: (+) chest pain Respiratory: (+) shortness of breath, (-) nocturnal cough Gastrointestinal: (+) dysphagia, (+) nausea Musculoskeletal: (+) back pain, (+) shoulder pain, (+) hand pain, (+) hand stiffness, (+) myalgias, (+) subjective hand swelling Neurological: (+) dizziness, (+) hand paresthesias, (+) hand weakness EXAM: BP 96/70 Pulse 62 Wt 72.6 kg (160 lb) LMP 07/21/2024 (Approximate) SpO2 100% BMI 29.26 kg/m PHYSICAL EXAM: GENERAL: NAD, alert and oriented. SKIN: Unremarkable, no rash or skin lesions. HEAD: Normocephalic. LUNGS: Clear to auscultation bilaterally, no wheezes/rhonchi/rales. HEART: Regular rate and rhythm, no murmurs. No ectopy. EXTREMITIES: Normal, no deformities, no skin discoloration, no edema. Numbness in hands NEURO: Awake, alert and oriented x3, cranial nerves II-XII grossly intact, normal gait, no involuntary motions. LABS: Labs: - Heart enzymes: No abnormalities - D-dimer: No abnormalities Imaging: - Chest X-ray: No abnormalities - CT chest with contrast: No abnormalities - Ultrasound of elbows and hands: Results not discussed - D dimer was high- CT scan done and pt. States negative Tests: - Electromyography: Results not discussed ASSESSMENT/PLAN: 1. Gastroesophageal reflux disease with esophagitis, unspecified whether hemorrhage - ICD9: 530.11, ICD10: K21.00 (primary diagnosis) - Esophageal spasm - OMEPRAZOLE 20 MG CAPSULE,DELAYED RELEASE - CONSULT TO GASTROENTEROLOGY at in [place] - COMPREHENSIVE METABOLIC PANEL 2. Migraine without aura and without status migrainosus, not intractable - ICD9: 346.10, ICD10: G43.009 Complex daily- - TOPIRAMATE 25 MG TABLET - SUMATRIPTAN 50 MG TABLET - COMPLETE BLOOD COUNT AND DIFFERENTIAL - COMPREHENSIVE METABOLIC PANEL 3. Bilateral hand pain - ICD9: 729.5, ICD10: M79.641, M79.642 Family Hx of RA, negative RF - XR HAND/WRIST SURVEY ARTHRITIS 1V PA BILATERAL - COMPLETE BLOOD COUNT AND DIFFERENTIAL - COMPREHENSIVE METABOLIC PANEL - VITAMIN B12 - MAGNESIUM - THYROID STIMULATING HORMONE - CREATINE KINASE/CK 4. Esophageal spasm - ICD9: 530.5, ICD10: K22.4 Took her to ER last night - CONSULT TO GASTROENTEROLOGY - CONSULT TO GASTROENTEROLOGY - COMPLETE BLOOD COUNT AND DIFFERENTIAL - COMPREHENSIVE METABOLIC PANEL 5. Numbness - ICD9: 782.0, ICD10: R20.0 Check B12 & TSH - THYROID STIMULATING HORMONE - B12 Discussed treatment plan and patient voices understanding. Patient's questions answered appropriately. Medications and potential side effects were discussed and patient voices understanding. Return to the office as scheduled or as needed for worsening/no improvement. Cecile Luis APRN.CATERING ADMINISTRATIVE ASSISTANT documented in this encounter [facility] 11-07-2024 Radiology Diagnostic study note [facility] Imaging Services [address] [place] [address] Chest PA and Lateral MR#: [id number] Acct: [id number] Name: ANGELITA MARLEY Rep #: [id number] : 1995 F 29 From: Benigno Cadet MD PCP: Munir Allison MD Status: REG ER Study:Chest PA and Lateral Date of Exam: 11/07/24 Exam# [id number] Ordering Dr: Gerard Jo DO PROCEDURE: CHEST PA AND LATERAL 11/07/2024 REASON FOR EXAM: CHEST PAIN TECHNIQUE: CHEST PA AND LATERAL COMPARISON: None. FINDINGS: The heart is normal in size. The lungs are clear. No acute osseous abnormalities. RAD/Chest PA and Lateral IMPRESSION: No acute cardiopulmonary abnormalities. Reading Location: [place] [address] CC: Dr. Rj Jo DO; Munir Allison MD ~ Funeral Pre Arrangement Specialist: Signed [facility] 11-07-2024 Discharge summary [facility] 11-07-2024 Discharge summary Note Date/Time November 07, 2024 5:03pm [facility] Medical Records Department [address] [place] [address] Emergency Department Summary 11/07/24 MR#: [id number] Acct: [id number] Name: ANGELITA MARLEY Rep #:[id number] : 1995 29 From: Rj Jo DO PCP: Keegan HIGGINBOTHAMMunir Status:REG ER Location: ED HPI History of Present Illness Chief Complaint: Chest Pain Narrative Narrative: Patient is a 29-year-old female with past medical history anxiety, asthma who presented to the emergency department with a chief complaint of chest pain. States that around 4 AM this morning she woke up with chest discomfort and states that this has been constant nothing makes this better or worse. She states that she went to another hospital at [facility] she had a workup including a D-dimer that was elevated then underwent a CAT scan of her chest that was noted to be normal. She states that she has continued pain which prompted her to come to the emergency department here at [place] to be further evaluated. When inquiring about any cardiac enzyme she states that she does notbelieve that this was done. Patient denies any control use denies any recent travels denies any history of blood clots [facility] Medical History RLQ abdominal pain Asthma Anxiety Home Medications ?Medication ?Instructions ?Recorded ?Last Taken ?Type Prenatabs FA 1 tab PO DAILY Check with pr imary 01/18/19 05/07/20 History doctor ibuprofen 600 mg tablet 600 mg PO Q6H PRN PRN Pain S core 05/09/20 Unknown Rx 1-3 #30 tabs buspirone 10 mg tablet 10 mg PO BID 07/01/22 Unknow n History escitalopram oxalate 10 mg tablet 10 mg PO DAILY 07/01 Unknown History famotidine 20 mg tablet 20 mg PO DAILY 07/01/22 Unkn own History ondansetron HCl 4 mg tablet 4 mg PO Q8H 07/01/22 Unkno wn History pantoprazole 40 mg tablet,delayed 40 mg PO DAILY 07/01 Unknown History release sucralfate 100 mg/mL oral 10 ml PO BID 07/01/22 Unknow n History suspension Allergy/AdvReac Type Severity Reaction Status Date / Time amoxicillin Allergy Unknown Verified 11/07/24 14:36 Family History Mother Heart disease Social History Smoking Status: Never smoker alcohol intake: never ROS ROS ED ROS Narrative Constitutional: Complains of headache denies lightheaded, dizziness Eyes: Denies double vision Cardiovascular: Complains of chest pain as noted above denies palpitations Respiratory: Complains of shortness of breath denies coughing wheezing Abdomen: Denies abdominal pain nausea vomit diarrhea : Denies any urinary symptoms Neurological: Denies any numbness, weakness, tingling Musculoskeletal: States that her chest pain radiates to her back Skin: Denies any rashes or lesions EXAM Physical Exam Narrative Exam Narrative: General: Patient was lying in bed was tearful but not appear to be in acute distress Head: Atraumatic, normocephalic Eyes: PERRL bilaterally, EOMI blood, no conjunctival injection noted Neck: Soft, supple, trachea midline Cardiovascular: Regular rate and rhythm Respiratory: Clear to auscultation bilaterally Abdomen: Soft, nondistended, nontender to palpation Extremities: +5/5 strength noted in the bilateral upper and lower extremities, radial pulses +2/4 in the bilateral extremities Neurological: Patient following commands knew that she was at [facility] year is 2024. NIH is 0 GCS 15 Skin: Warm, dry, tact no rashes or lesions noted Const Vital Signs: 11/07/24 14:36 11/07/24 14:54 11/07/24 14:56 Temperature 96.7 F L Temperature Source Temporal Pulse Rate 81 Respiratory Rate 16 Respiratory Effort Normal Non-Labored Blood Pressure 124/100 H Blood Pressure Mean 108 Pulse Ox 99 Oxygen Delivery Method Room Air Room Air 11/07/24 15:45 11/07/24 16:00 11/07/24 16:30 Temperature Temperature Source Pulse Rate 68 75 62 Respiratory Rate 14 12 14 Respiratory Effort Blood Pressure 124/93 H 127/90 H 124/89 H Blood Pressure Mean 104 103 100 Pulse Ox 98 100 99 Oxygen Delivery Method 11/07/24 17:00 Temperature Temperature Source Pulse Rate 67 Respiratory Rate 15 Respiratory Effort Blood Pressure 129/92 H Blood Pressure Mean 103 Pulse Ox 98 Oxygen Delivery Method MDM MDM MDM Narrative Medical decision making narrative: Patient is a 29-year-old female who presented to the emergency department chief complaint of chest pain. On the differential diagnose includes but not limited to anxiety, panic attack, ACS, spontaneous coronary artery dissection, migraine headache. Once workup is obtained reviewed she will be reevaluated. Patient begiven IV fluids Reglan and a gram of Tylenol. Right patient's a CBC was reviewedshowed no evidence leukocytosis white blood count 5.7, hemoglobin 14.4, plateletcount of 205. Patient sodium was 135, potassium normal 4.2, creatinine was 0.64. Patient troponin was less than 6, EKG reviewed showed sinus rhythm with arate of 75 bpm. Patient's TSH normal at 1.9 and test is negative. Patient chest x-ray reviewed by myself and official read by radiology is pending. No acute cardiopulmonary processes were identified. Patient's delta troponin is pending this to be signed out to oncoming provider to follow-up on and make ultimate disposition see addendum for further details. Lab Data Labs: Laboratory Results - last 24 hr 11/07/24 15:00 WBC 5.7 RBC 4.53 Hgb 14.4 Hct 40.8 MCV 90.1 MCH 31.8 MCHC 35.3 RDW Std Deviation 39.5 RDW Coeff of Saige 12.0 Plt Count 205 MPV 10.7 Immature Gran % (Auto) 0.400 Neut % (Auto) 70.9 H Lymph % (Auto) 19.5 [place] % (Auto) 8.5 Eos % (Auto) 0.2 Baso % (Auto) 0.5 Absolute Neuts (auto) 4.0 Absolute Lymphs (auto) 1.11 Nucleated RBC % 0 Sodium 135 Potassium 4.2 Chloride 99 Carbon Dioxide 23.0 Anion Gap 13 BUN 8 Creatinine 0.64 L Estim Creat Clear Calc 119.90 Est GFR (MDRD) Non-Af 122 BUN/Creatinine Ratio 13.0 Glucose 96 Calcium 9.1 Troponin T High Sens < 6 TSH 1.900 Serum , Qual NEGATIVE Discharge Plan Triage Chief Complaint: Chest Pain ED Provider: Rj Jo Dx/Rx/DC Orders Clinical Impression: Chest pain Prescriptions: No Action buspirone 10 mg tablet 10 mg PO BID escitalopram oxalate 10 mg tablet 10 mg PO DAILY famotidine 20 mg tablet 20 mg PO DAILY ondansetron HCl 4 mg tablet 4 mg PO Q8H pantoprazole 40 mg tablet,delayed release (DR/EC) 40 mg PO DAILY sucralfate 100 mg/mL suspension 10 ml PO BID Prenatabs FA 1 tab PO DAILY ibuprofen 600 MG tablet 600 mg PO Q6H PRN PRN (Reason: Pain Score 1-3) Qty: 30 0RF Primary Care Provider: Munir Allison Referrals: Care Physician,No Primary [Non-Staff] - Print Language: Bruneian What to do if you have Problems For any increased pain, shortness of breath, bleeding, nausea or vomiting, chestpain, or any unexpected problems, contact your Primary Care Provider. Call [facility] ([phone]) or report to the closest Emergency Room. Call 911 if necessary. 07/09/25 1703 <Electronically signed by Rj Jo DO> Cosigner Signature (if applicable): CC: Munir Allison MD ~ Signed [facility] Work Phone: [phone] History of Present illness Narrative* Munir Allison MD - 10/16/2024 10:00 AM EDT Chief Complaint Patient presents with: ED Follow-up: [facility]-Chest pains. HPI Angelita Marley is a 29 year old female who presents here today for ER Follow Up. Pt was at [facility] ER in [place] on 08/30/24 with ches pains. Pt presented to [facility] ER again on 10/11/24 for chest pains. Cardiac work up each time was normal. Was not treated with any medications. Was referred to a Break Up Worker but was toldwhen she called that Primary needed to refer. Would like to stay within [facility] for Cardio. She is toldwhen at ER that she is having anxiety attacks but pt does not feel that is what it is. She gets beronica p shooting pains in the chest several times a week that can last a few minutes and at times will have heaviness and pressure to middle of chest. She does get both SOB and dizziness when the sx are severe. No nausea or vomiting. She states her arms get heavy feeling or numb. No pain in the jaw. Family Hx of heart disease and heart attack, Uncle passed under the age of 50 from heart attack. No symptoms with exercise, no exercise limitation 08/30/24 Chief Complaint Patient presents with Chest Pain 29-year-old female presents for chest pain, patient asymptomatic and while sitting down, left-sidedpain, no associated shortness of breath nausea emesis, no fevers, no cough Medical Decision Making Patient presents for chest pain on arrival episode, no acute distress, differentials include but not limited to atypical ACS, PE, pneumonia, pneumothorax. EKG was sinus no acute dysrhythmias, labs with no leukocytosis or electrolyte function, negative D-dimer, chest x-ray grossly unremarkable, disch arged home supportive measures and outpatient follow-up, advised signs symptoms when to return The patient has been informed that they may have pre-hypertension or hypertension based on a blood pressure reading in the Emergency Department. I recommend that the patient call the primary care provider listed on their discharge instructions or a physician of their choice as soon as possible to arrange follow-up in the next 4 weeks for further evaluation of possible pre-hypertension or hypertension. Depression/CARO/Insomnia: Sleeping well with Trazodone 50 mg daily and feels her anxiety and depression are doing well on the Prozac 20 mg daily. Does not do any counseling. Complains of migraines and headaches a lot, occurring 3-4 x a week. She states weather changes trigger them. Does get nausea, no vomiting. Has light and noise sensitivity. She typically will take Motrin, if bad enough will take Benadryl and sleep it off. She does push through work when she has them, will leave early when able. Past medical history, appointments, medications, allergies reviewed. Previous Medical History PAST MEDICAL HISTORY Diagnosis Date anxiety Asthma (HCC) sports induced. No attacks since age 16 depression Previous Surgical History PAST SURGICAL HISTORY Procedure Laterality Date INSERTION OF IUD 07/15/2020 Mirena PAST SURGICAL HISTORY OF wisdom teeth and root canal PAST SURGICAL HISTORY OF Right 03/09/2023 Heel spur removed and tendon cut for plantar fasciitis Family History FAMILY HISTORY Problem Relation Age of Onset Asthma Mother other (Other tachycardia) Mother other (Other, hernia surgery) Father other (Other irregular heart rate) Father No Known Problems Sister Asthma Sister No Known Problems Brother Asthma Brother Cancer Maternal Grandmother skin cancer No Known Problems Maternal Grandfather Heart Paternal Grandmother other (benign tumor of ear) Paternal Grandmother No Known Problems Paternal Grandfather No Known Problems Son Heart Attack Maternal Uncle 37 Heart Attack Maternal Uncle Patient Allergies ALLERGIES Allergen Reactions Amoxicillin Unknown When she was a child Dicyclomine Intolerance Patient reports causes migraines Seasonal Allergies Itching Current Medications Current Outpatient Medications on File Prior to Visit Medication Sig traZODone (DESYREL) 50 mg tablet Take 1 tablet by mouth daily at bedtime. cetirizine (ZYRTEC) 10 mg tablet Take 10 mg by mouth as needed. fluticasone (FLONASE ALLERGY RELIEF) 50 mcg/actuation nasal spray Use 1 [place] in each nostril two times a day. FLUoxetine (PROZAC) 20 mg capsule Take 1 capsule by mouth once daily. meloxicam (MOBIC) 15 mg tablet Take 15 mg by mouth once daily. diphenhydramine HCl (BENADRYL ORAL) Take by mouth. No current facility-administered medications on file prior to visit. Social History Social History Tobacco Use Smoking status: Never Smokeless tobacco: Never Vaping Use Vaping status: Never Used Substance Use Topics Alcohol use: Not Currently Comment: occasionally but not while Drug use: No EXAM: BP 118/70 Pulse 70 Resp 16 Wt 72.5 kg (159 lb 13.3 oz) LMP 07/21/2024 (Approximate) BMI 29.23 kg/m General Appearance: Well appearing, alert, in no acute distress, well-hydrated, well nourished.. Lungs: Lungs clear to auscultation. No wheezing, rhonchi, rales.. Heart: RRR without murmur, gallop, or rubs. No ectopy. Health Maintenance List Hepatitis B Vaccine(1 of 3 - 19+ 3-dose series) Never done Cervical Cancer Screening due on 06/12/2023 Depression Screening due on 02/01/2025 Anxiety Screening due on 02/01/2025 DTaP,Tdap,Td Vaccine(3 - Td or Tdap) due on 02/24/2030 Hepatitis C Screening Completed HIV Screening Completed Influenza Vaccine Discontinued Covid-19 Vaccine Discontinued Data reviewed Care Everywhere ASSESSMENT/PLAN: 1. Other chest pain - ICD9: 786.59, ICD10: R07.89 Atypical chest pain, symptoms are not consistent with cardiac ischemia due to nonexertional nature of symptom possible etiology include musculoskeletal and Anxiety Check Echo Cardiology consult - Referral to Cardiology - ECHO - PERFLUTREN LIPID MICROSPHERES 1.1 MG/ML INJECTION IN NS 10 ML - SODIUM CHLORIDE 0.9 % (FLUSH) INJECTION SYRINGE - CONSULT TO CARDIOLOGY Follow up prn I agree with the Chief Complaint, ROS, and Past Histories independently gathered by the clinical patient support representative and the remaining scribed note accurately describes my personal service to the patient. Medical Decision Making: Problems: Moderate: New problem with uncertain prognosis Data: Unique source(s) for external note(s) reviewed: 1 Unique test result(s) reviewed: 3+ Unique test(s) ordered: 1 Medical Decision Making Level: 4 - Moderate Munir Allison MD The documentation for this note was completed by Debbi Vallecillo MA acting as scribe for Munir Allison MD. October 16, 2024 9:29 AM. Debbi Vallecillo MA documented in this [facility] NoteHNO ID: [id number] Author: MUNIR ALLISON MD Service: ? Author Type: Physician Type: Progress Notes Filed: 10/16/2024 11:38 Note Text: Chief Complaint Patient presents with: ED Follow-up: [facility]-Chest pains. HPI Angelita Marley is a 29 year old female who presents here today for ER Follow Up. Pt was at [facility] ER in [place] on 08/30/24 with ches pains. Pt presented to [facility] ER again on 10/11/24 for chest pains. Cardiac work up each time was normal. Was not treated with any medications. Was referred to a Break Up Worker but was told when she called that Primary needed to refer. Would like to stay within [facility] for Cardio. She is told when at ER that she is having anxiety attacks but pt does not feel that is what it is. She gets sharp shooting pains in the chest several times a week that can last a few minutes and at times will have heaviness and pressure to middle of chest. She does get both SOB and dizziness when the sx are severe. No nausea or vomiting. She states her arms get heavy feeling or numb. No pain in the jaw. Family Hx of heart disease and heart attack, Uncle passed under the age of 50 from heart attack. No symptoms with exercise, no exercise limitation 08/30/24 Chief Complaint Patient presents with Chest Pain 29-year-old female presents for chest pain, patient asymptomatic and while sitting down, left-sided pain, no associated shortness of breath nausea emesis, no fevers, no cough Medical Decision Making Patient presents for chest pain on arrival episode, no acute distress, differentials include but not limited to atypical ACS, PE, pneumonia, pneumothorax. EKG was sinus no acute dysrhythmias, labs with no leukocytosis or electrolyte function, negative D-dimer, chest x-ray grossly unremarkable, discharged home supportive measures and outpatient follow-up, advised signs symptoms when to return The patient has been informed that they may have pre-hypertension or hypertension based on a blood pressure reading in the Emergency Department. I recommend that the patient call the primary care provider listed on their discharge instructions or a physician of their choice as soon as possible to arrange follow-up in the next 4 weeks for further evaluation of possible pre-hypertension or hypertension. Depression/CARO/Insomnia: Sleeping well with Trazodone 50 mg daily and feels her anxiety and depression are doing well on the Prozac 20 mg daily. Does not do any counseling. Complains of migraines and headaches a lot, occurring 3-4 x a week. She states weather changes trigger them. Does get nausea, no vomiting. Has light and noise sensitivity. She typically will take Motrin, if bad enough will take Benadryl and sleep it off. She does push through work when she has them, will leave early when able. Past medical history, appointments, medications, allergies reviewed. Previous Medical History PAST MEDICAL HISTORY Diagnosis Date anxiety Asthma (HCC) sports induced. No attacks since age 16 depression Previous Surgical History PAST SURGICAL HISTORY Procedure Laterality Date INSERTION OF IUD 07/15/2020 Mirena PAST SURGICAL HISTORY OF wisdom teeth and root canal PAST SURGICAL HISTORY OF Right 03/09/2023 Heel spur removed and tendon cut for plantar fasciitis Family History FAMILY HISTORY Problem Relation Age of Onset Asthma Mother other (Other tachycardia) Mother other (Other, hernia surgery) Father other (Other irregular heart rate) Father No Known Problems Sister Asthma Sister No Known Problems Brother Asthma Brother Cancer Maternal Grandmother skin cancer No Known Problems Maternal Grandfather Heart Paternal Grandmother other (benign tumor of ear) Paternal Grandmother No Known Problems Paternal Grandfather No Known Problems Son Heart Attack Maternal Uncle 37 Heart Attack Maternal Uncle Patient Allergies ALLERGIES Allergen Reactions Amoxicillin Unknown When she was a child Dicyclomine Intolerance Patient reports causes migraines Seasonal Allergies Itching Current Medications Current Outpatient Medications on File Prior to Visit Medication Sig traZODone (DESYREL) 50 mg tablet Take 1 tablet by mouth daily at bedtime. cetirizine (ZYRTEC) 10 mg tablet Take 10 mg by mouth as needed. fluticasone (FLONASE ALLERGY RELIEF) 50 mcg/actuation nasal spray Use 1 [place] in each nostril two times a day. FLUoxetine (PROZAC) 20 mg capsule Take 1 capsule by mouth once daily. meloxicam (MOBIC) 15 mg tablet Take 15 mg by mouth once daily. diphenhydramine HCl (BENADRYL ORAL) Take by mouth. No current facility-administered medications on file prior to visit. Social History Social History Tobacco Use Smoking status: Never Smokeless tobacco: Never Vaping Use Vaping status: Never Used Substance Use Topics Alcohol use: Not Currently Comment: occasionally but not while Drug use: N (more content not included)...[facility]06-09-2025 Telephone encounter Note* Telephone Encounter - Munir Allison MD - 10/08/2024 6:02 PM EDT OK to refill as ordered Munir Allison MD [facility]06-09-2025 Miscellaneous Notes* Telephone Encounter - Munir Allison MD - 10/08/2024 6:02 PM EDT OK to refill as ordered Munir Allison MD * Telephone Encounter - Debbi Vallecillo MA - 10/08/2024 4:18 PM EDT Prescription Refill Information The patient has been identified by name and date of : Yes Caregiver verified no other encounters exist for this prescription request: Yes Caregiver confirmed with patient/requestor that no other refills are due, in the near future, with this provider at this time: No The last office visit in the department: 07/27/24 Does the patient have a future office visit with this provider/department: No Requested Prescriptions Pending Prescriptions Disp Refills traZODone (DESYREL) 50 mg tablet 90 tablet 3 Sig: Take 1 tablet by mouth daily at bedtime. Debbi Vallecillo MA October 08, 2024 4:18 PM documented in this encounterK[facility]06-09-2025 Telephone encounter Note * Telephone Encounter - Debbi Vallecillo MA - 10/08/2024 4:18 PM EDT Prescription Refill Information The patient has been identified by name and date of : Yes Caregiver verified no other encounters exist for this prescription request: Yes Caregiver confirmed with patient/requestor that no other refills are due, in the near future, with this provider at this time: No The last office visit in the department: 07/27/24 Does the patient have a future office visit with this provider/department: No Requested Prescriptions Pending Prescriptions Disp Refills traZODone (DESYREL) 50 mg tablet 90 tablet 3 Sig: Take 1 tablet by mouth daily at bedtime. Debbi Vallecillo MA October 08, 2024 4:18 PM [facility]03-28-2025 Telephone encounter Note* Telephone Encounter - Rama Bower LPN - 07/27/2024 12:55 PM EDT Patient notified of results, verbalizes understanding of instructions. Rama Bower LPN [facility]03-28-2025 Miscellaneous Notes* Telephone Encounter - Rama Bower LPN - 07/27/2024 12:55 PM EDT Patient notified of results, verbalizes understanding of instructions. Rama Bower LPN * Telephone Encounter - Kenzie Bowen APRN.CNP - 07/27/2024 12:49 PM EDT Can you please call the patient and let her know that I reviewed her x-ray results. X-ray of left wrist was normal. No fractures noted. I would like her to continue supportive care athome. May use Richard wrap for extra support, anti-inflammatory such as ibuprofen or Aleve, and apply ice to the area. X-ray of coccyx/sacrum was normal as well. I know this has been an ongoing issue for her. She may consider following up with an orthopedic or lab specialist for further evaluation. Please let me know what she prefers. Thank you. Kenzie Bowen APRN.CNP documented in this encounterKet[facility]03-28-2025 Telephone encounter Note * Telephone Encounter - Kenzie Bowen APRN.CNP - 07/27/2024 12:49 PM EDT Can you please call the patient and let her know that I reviewed her x-ray results. X-ray of left wrist was normal. No fractures noted. I would like her to continue supportive care athome. May use Richard wrap for extra support, anti-inflammatory such as ibuprofen or Aleve, and apply ice to the area. X-ray of coccyx/sacrum was normal as well. I know this has been an ongoing issue for her. She may consider following up with an orthopedic or lab specialist for further evaluation. Please let me know what she prefers. Thank you. Kenzie Bowen APRN.CNP [facility]03-28-2025 History of Present illness Narrative* Johnny Chambers RT(R) - 07/27/2024 8:50 AM EDT Radiology Service Progress Note PATIENT NAME: Angelita Marley DATE OF SERVICE: July 27, 2024 TIME: 8:51 AM PATIENT IDENTITY VERIFICATION COMPLETED USING TWO (2) IDENTIFIERS: Name and Date of confirmedby patient verbally. FALL SCREENING: Has the patient had 2 falls in the last year or 1 fall with injury or currently using an Ambulatory Assistive Device (Walker, Cane, Wheelchair, Crutches, etc.)? No PATIENT GENDER DATA: Assigned female at . status: : No status:NO. PATIENT RELEVANT IMPLANT DATA REVIEWED: Not Applicable PATIENT PRESENTS WITH AN IMPLANTABLE OR ATTACHED INFORMATION SYSTEMS AUDITOR: No RADIOLOGY DEPARTMENT: General X-ray: Exam(s) Completed: Spine X-Ray(s): Sacrum/Coccyx Upper Extremity X-Ray(s): Wrist, left PERIPHERAL IV DATA: Not applicable SIGNED BY: RT Joycelyn(R) July 27, 2024 8:51 AM documented in this encounterKettering [facility]03-28-2025 NoteHNO ID: [id number] Author: JOHNNY CHAMBERS RT(R) Service: Radiology Author Type: Technologist Type: Progress Notes Filed: 07/27/2024 09:04 Note Text: Radiology Service Progress Note PATIENT NAME: Angelita Marley DATE OF SERVICE: July 27, 2024 TIME: 8:51 AM PATIENT IDENTITY VERIFICATION COMPLETED USING TWO (2) IDENTIFIERS: Name and Date of confirmed by patient verbally. FALL SCREENING: Has the patient had 2 falls in the last year or 1 fall with injury or currently using an Ambulatory Assistive Device (Walker, Cane, Wheelchair, Crutches, etc.)? No PATIENT GENDER DATA: Assigned female at . status: : No status: NO. PATIENT RELEVANT IMPLANT DATA REVIEWED: Not Applicable PATIENT PRESENTS WITH AN IMPLANTABLE OR ATTACHED INFORMATION SYSTEMS AUDITOR: No RADIOLOGY DEPARTMENT: General X-ray: Exam(s) Completed: Spine X-Ray(s): Sacrum/Coccyx Upper Extremity X-Ray(s): Wrist, left PERIPHERAL IV DATA: Not applicable SIGNED BY: RT Joycelyn(R) July 27, 2024 8:51 [facility]03-28-2025 Instructions* Patient Instructions* Kenzie Bowen APRN.CNP - 07/27/2024 8:44 AM EDT Get xrays completed, continue supportive care, may use NSAIDS, and apply ice as needed. Recommend taking daily allergy medication such as zyrtec or Xyzal Start Flonse twice daily, rinse mouth afterwards If no improvement please reach out to the office. Follow as needed. documented in this encounterK[facility] History of Present illness Narrative* Kenzie Bowen APRN.CATERING ADMINISTRATIVE ASSISTANT - 07/27/2024 8:40 AM EDT This is a 29 year old female who presents today with: Patient presents with: Acute Visit: Ear fullness, itching, wrist pain, and tailbone pain HISTORY OF PRESENT ILLNESS: Angelita Marley is a 29 year old female. Patient presents with: Acute Visit: Ear fullness, itching, wrist pain, and tailbone pain Here in the office for bilateral ear pain and itching. Symptoms started about 6 months ago. Ears feel full. Had a sore throat for 2 weeks but resolved. History of seasonal allergies. Not taking any OTC medication as this time. No other HEENT symptoms at this time. Left wrist Pain: Fell down the steps 2 days ago and landed on left wrist. Ache pain. Has been taking Ibuprofen as needed. Tail bone: Fell in the fall, still having on going pain. Will be severe at times, pain with sittingand exercise. Taking ibuprofen which is helpful. PAST MEDICAL HISTORY: PAST MEDICAL HISTORY Diagnosis Date anxiety Asthma sports induced. No attacks since age 16 depression PAST SURGICAL HISTORY Procedure Laterality Date INSERTION OF IUD 07/15/2020 Mirena PAST SURGICAL HISTORY OF wisdom teeth and root canal PAST SURGICAL HISTORY OF Right 03/09/2023 Heel spur removed and tendon cut for plantar fasciitis ALLERGIES Amoxicillin, Dicyclomine, and Seasonal Allergies MEDICATIONS Current Outpatient Medications Medication Sig FLUoxetine (PROZAC) 20 mg capsule Take 1 capsule by mouth once daily. traZODone (DESYREL) 50 mg tablet Take 1 tablet by mouth daily at bedtime. meloxicam (MOBIC) 15 mg tablet Take 15 mg by mouth once daily. diphenhydramine HCl (BENADRYL ORAL) Take by mouth. No current facility-administered medications for this visit. FAMILY HISTORY Problem Relation Age of Onset Asthma Mother other (Other tachycardia) Mother other (Other, hernia surgery) Father other (Other irregular heart rate) Father No Known Problems Sister No Known Problems Brother Cancer Maternal Grandmother skin cancer No Known Problems Maternal Grandfather Heart Paternal Grandmother other (benign tumor of ear) Paternal Grandmother No Known Problems Paternal Grandfather Asthma Brother Asthma Sister No Known Problems Son Social History Tobacco Use Smoking status: Never Smokeless tobacco: Never Vaping Use Vaping status: Never Used Substance Use Topics Alcohol use: Not Currently Comment: occasionally but not while Drug use: No REVIEW OF SYSTEMS GENERAL: No weight loss, malaise or fevers/chills HEENT: + Ear pain/itching NECK: Negative for lumps, goiter, pain and significant neck swelling RESPIRATORY: Negative for cough, hemoptysis, wheezing, dyspnea or shortness of breath CARDIOVASCULAR: Negative for chest pain, leg swelling, orthopnea, or palpitations GI: No nausea, vomiting, or diarrhea/constipation. No hematochezia/melena. No heartburn or reflux symptoms. : No history of dysuria, frequency or incontinence MUSCULOSKELETAL: + Wrist pain and tail bone pain SKIN: Negative for lesions, rash, and itching ENDOCRINE: Negative for cold or heat intolerance, polyuria, polydipsia and goiter NEURO: No history of headaches, syncope, paralysis, seizures or tremors MOOD: Negative for depression, anxiety, or suicidal ideation. EXAM: BP 118/82 Pulse 71 Resp 16 Wt 72.9 kg (160 lb 11.5 oz) LMP 07/21/2024 (Approximate) SpO2 98% BMI 29.40 kg/m PHYSICAL EXAM: General Appearance: Well appearing, alert, in no acute distress, well-hydrated, well nourished. Skin: Skin color, texture, turgor normal, no suspicious rashes or lesions. Head: Normocephalic, no masses, lesions, tenderness or abnormalities. Eyes: Anicteric sclera. Extraocular movements are intact. Ears: External ears normal, canals clear, TM's pearly moncada. Nose/Sinuses: Positive findings: mucosa erythematous and swollen. Oropharynx: Lips, mucosa, and tongue normal, teeth and gums normal, oropharynx normal. Neck: Supple, no adenopathy; thyroid symmetric, normal size, no bruits. Lungs: Lungs clear to auscultation. No wheezing, rhonchi, rales. Heart: RRR without murmur, gallop, or rubs. No ectopy. Extremities: No deformities, edema, skin discoloration, clubbing or cyanosis. Good capillary refill. Musculoskeletal: Left wrist, full ROM, tender with palpation, ecchymosis noted, no edema. Spine full ROM. Peripheral Pulses: Normal, Capillary refill <2secs, strong peripheral pulses, Pulses palpable. Neurologic: Gait normal. Reflexes normal and symmetric. Sensation grossly intact. ASSESSMENT/PLAN: 1. Seasonal allergies - ICD9: 477.9, ICD10: J30.2 (primary diagnosis) - Recommend taking daily antihistamine and adding on Flonase twice daily. - FLUTICASONE PROPIONATE 50 MCG/ACTUATION NASAL SPRAY,SUSPENSION 2. Left wrist pain - ICD9: 719.43, ICD10: M25.532 - Get xray completed - Continue supportive care at home - May use RICE therapy - Continue with NSAIDS as needed. - XR WRIST INJURY 4V PA/LAT/OBL/SCAPH LEFT 3. Tail bone pain - ICD9: 724.79, ICD10: M53.3 - XR SACRUM/COCCYX 3V AP/LAT Follow-up pending test results or sooner as needed. Discussed treatment plan and patient voices understanding. Patient's questions answered appropriately. Medications and potential side effects were discussed and patient voices understanding. Kenzie Bowen APRN.NOMI This note was partially generated using [employer] voice recognition system. Note was reviewed for accuracy. There may be minor misspellings or grammar miscues with [employer] voice recognition. documented in this encounterK[facility]03-[facility]25 NoteHNO ID: [id number] Author: KENZIE BOWEN APRN.CNP Service: ? Author Type: Nurse Practitioner Type: Progress Notes Filed: 07/27/2024 09:08 Note Text: This is a 29 year old female who presents today with: Patient presents with: Acute Visit: Ear fullness, itching, wrist pain, and tailbone pain HISTORY OF PRESENT ILLNESS: Angelita Marley is a 29 year old female. Patient presents with: Acute Visit: Ear fullness, itching, wrist pain, and tailbone pain Here in the office for bilateral ear pain and itching. Symptoms started about 6 months ago. Ears feel full. Had a sore throat for 2 weeks but resolved. History of seasonal allergies. Not taking any OTC medication as this time. No other HEENT symptoms at this time. Left wrist Pain: Fell down the steps 2 days ago and landed on left wrist. Ache pain. Has been taking Ibuprofen as needed. Tail bone: Fell in the fall, still having on going pain. Will be severe at times, pain with sitting and exercise. Taking ibuprofen which is helpful. PAST MEDICAL HISTORY: PAST MEDICAL HISTORY Diagnosis Date anxiety Asthma sports induced. No attacks since age 16 depression PAST SURGICAL HISTORY Procedure Laterality Date INSERTION OF IUD 07/15/2020 Mirena PAST SURGICAL HISTORY OF wisdom teeth and root canal PAST SURGICAL HISTORY OF Right 03/09/2023 Heel spur removed and tendon cut for plantar fasciitis ALLERGIES Amoxicillin, Dicyclomine, and Seasonal Allergies MEDICATIONS Current Outpatient Medications Medication Sig FLUoxetine (PROZAC) 20 mg capsule Take 1 capsule by mouth once daily. traZODone (DESYREL) 50 mg tablet Take 1 tablet by mouth daily at bedtime. meloxicam (MOBIC) 15 mg tablet Take 15 mg by mouth once daily. diphenhydramine HCl (BENADRYL ORAL) Take by mouth. No current facility-administered medications for this visit. FAMILY HISTORY Problem Relation Age of Onset Asthma Mother other (Other tachycardia) Mother other (Other, hernia surgery) Father other (Other irregular heart rate) Father No Known Problems Sister No Known Problems Brother Cancer Maternal Grandmother skin cancer No Known Problems Maternal Grandfather Heart Paternal Grandmother other (benign tumor of ear) Paternal Grandmother No Known Problems Paternal Grandfather Asthma Brother Asthma Sister No Known Problems Son Social History Tobacco Use Smoking status: Never Smokeless tobacco: Never Vaping Use Vaping status: Never Used Substance Use Topics Alcohol use: Not Currently Comment: occasionally but not while Drug use: No REVIEW OF SYSTEMS GENERAL: No weight loss, malaise or fevers/chills HEENT: + Ear pain/itching NECK: Negative for lumps, goiter, pain and significant neck swelling RESPIRATORY: Negative for cough, hemoptysis, wheezing, dyspnea or shortness of breath CARDIOVASCULAR: Negative for chest pain, leg swelling, orthopnea, or palpitations GI: No nausea, vomiting, or diarrhea/constipation. No hematochezia/melena. No heartburn or reflux symptoms. : No history of dysuria, frequency or incontinence MUSCULOSKELETAL: + Wrist pain and tail bone pain SKIN: Negative for lesions, rash, and itching ENDOCRINE: Negative for cold or heat intolerance, polyuria, polydipsia and goiter NEURO: No history of headaches, syncope, paralysis, seizures or tremors MOOD: Negative for depression, anxiety, or suicidal ideation. EXAM: BP 118/82 Pulse 71 Resp 16 Wt 72.9 kg (160 lb 11.5 oz) LMP 07/21/2024 (Approximate) SpO2 98% BMI 29.40 kg/m? PHYSICAL EXAM: General Appearance: Well appearing, alert, in no acute distress, well-hydrated, well nourished. Skin: Skin color, texture, turgor normal, no suspicious rashes or lesions. Head: Normocephalic, no masses, lesions, tenderness or abnormalities. Eyes: Anicteric sclera. Extraocular movements are intact. Ears: External ears normal, canals clear, TM's pearly moncada. Nose/Sinuses: Positive findings: mucosa erythematous and swollen. Oropharynx: Lips, mucosa, and tongue normal, teeth and gums normal, oropharynx normal. Neck: Supple, no adenopathy; thyroid symmetric, normal size, no bruits. Lungs: Lungs clear to auscultation. No wheezing, rhonchi, rales. Heart: RRR without murmur, gallop, or rubs. No ectopy. Extremities: No deformities, edema, skin discoloration, clubbing or cyanosis. Good capillary refill. Musculoskeletal: Left wrist, full ROM, tender with palpation, ecchymosis noted, no edema. Spine full ROM. Peripheral Pulses: Normal, Capillary refill <2secs, strong peripheral pulses, Pulses palpable. Neurologic: Gait normal. Reflexes normal and symmetric. Sensation grossly intact. ASSESSMENT/PLAN: 1. Seasonal allergies - ICD9: 477.9, ICD10: J30.2 (primary diagnosis) - Recommend taking daily antihistamine and adding on Flonase twice daily. - FLUTICASONE PROPIONATE 50 MCG/ACTUATION NASAL SPRAY,SUSPENSION 2. Left wrist pain - ICD9: 7 (more content not included)...[facility]03-04-2025 Telephone encounter Note* Telephone Encounter - Sandra Mayers MA - 07/03/2024 11:05 AM EST Patient is scheduled on 08/01/2024. [facility]03-[facility] Miscellaneous Notes* Telephone Encounter - Sandra Mayers MA - 07/03/2024 11:05 AM EST Patient is scheduled on 08/01/2024. documented in this encounterK[facility]11-11-2024 Telephone encounter Note * Telephone Encounter - Erica Baker - 03/12/2024 1:37 PM EST Patient has been scheduled for their MSK US exam on 04/26/2024 : 10:15 AM at MAIN. [facility] Miscellaneous Notes* Telephone Encounter - Erica Baker - 03/12/2024 1:37 PM EST Patient has been scheduled for their MSK US exam on 04/26/2024 : 10:15 AM at MAIN. * Telephone Encounter - Erica Baker - 03/12/2024 1:06 PM EST Called patient on March 12, 2024 at 1:06 PM to schedule their MSK US exam. No answer, left VM, 1st attempt. * Telephone Encounter - Lu Valverde - 03/12/2024 10:12 AM EST Visit Type: ANY MSK Visit Length: 45. 50 OR 60 MINUTES Order Name/Protocol: US ELBOW RT+LT; MEDIAL-EVAL BILATERAL ULNAR NERVES. TIME SLOT ALLOTMENT OK'D BY DM VIA STAFF MSG 03/12- Preferred Provider: N/A Comment: Please ask if the patient has ever had any prior surgery to their ELBOWS. If so, upgrade the visit type to an MSK1 and notate the surgical hx in the Appointment Note. Location: Depending on the surgical hx, this patient can have this exam performed at any of our three locations. Slot held: N/A documented in this encounterK[facility]11-11-2024 Telephone encounter Note * Telephone Encounter - Erica Baker - 03/12/2024 1:06 PM EST Called patient on March 12, 2024 at 1:06 PM to schedule their MSK US exam. No answer, left VM, 1st attempt. [facility] Telephone encounter Note* Telephone Encounter - Lu Valverde - 03/12/2024 10:12 AM EST Visit Type: ANY MSK Visit Length: 45. 50 OR 60 MINUTES Order Name/Protocol: US ELBOW RT+LT; MEDIAL-EVAL BILATERAL ULNAR NERVES. TIME SLOT ALLOTMENT OK'D BY DM VIA STAFF MSG Preferred Provider: N/A Comment: Please ask if the patient has ever had any prior surgery to their ELBOWS. If so, upgrade the visit type to an MSK1 and notate the surgical hx in the Appointment Note. Location: Depending on the surgical hx, this patient can have this exam performed at any of our three locations. Slot held: N/A [facility] NoteHNO ID: [id number] Author: LUIS LOVETT MD Service: ? Author Type: Physician Type: Progress Notes Filed: 03/12/2024 09:01 Note Text: Luis Lovett MD Department of Orthopaedics Orthopaedics [address] [facility] [address] Dept: [phone] Dept March 12, 2024 CHIEF COMPLAINT: New and Pain of the Left Hand and New and Pain of the Right Hand HPI Patient here today for bilateral hand pain, R>L x 6 months. 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 She is right hand dominant. She has had a rheumatoid workup and all of her blood work is normal. She recently completed a nerve conduction exam. 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 Will start with ultrasound exams of the ulnar nerves and follow-up from there. Cervical films would be next. Doppler exams of the arms if thoracic outlet remained a concern still. FOLLOW UP INSTRUCTIONS: Follow-up after elbow ultrasounds OBJECTIVE: Ms. Angelita Marley is a pleasant 28 year old in no apparent distress. Gen:LMP 01/23/2024 nl development, non obese, no deformities ENT: Normocephalic, normal hearing, moist mucosa CV: Pulses:Radial= 2+ and symmetric, capillary refill < 2 secs, no peripheral edema/varicosities Skin: no rash, bruising or lesions. Good turgor. Psych: cooperative and appropriate, alert and oriented x 3, good mood and affect. Musculoskeletal: Cervical spine has supple range of motion and no tenderness to palpation, Spurling's sign are equivocal bilaterally. Shoulders and elbows have full range of motion. No she reports reproduced symptoms with abduction and external rotation of bilateral arms, she does not have pulse dropping with provocative thoracic outlet testing right or left. Negative Tinel's over the cubital tunnel right and left, but positive Phalen's bilaterally at the elbows no subluxation of ulnar nerve at the elbow with flexion. Negative Tinel's over Guyon's canal. Inspection reveals no thenar atrophy. Intact sensation to light touch in the radial 3 digits. Sensation diminished in the ulnar 2 digits with out intrinsic atrophy, and some mild, symmetrical weakness with Froment's and intrinsic muscle strength testing. Negative Tinel's at the wrist, negative carpal tunnel compression testing on the right and left. No locking or catching of the digits. No tenderness to palpation or masses noted in the forearm or hand. IMAGING: Extensive electrodiagnostic examination of the right upper extremity and additional studies of the left upper extremity reveals no electrodiagnostic abnormalities. In particular, there is no evidence of a right and/or median neuropathy at or distal to the wrist (as seen in carpal tunnel syndrome), or a right C5-C8 intraspinal canal lesion, such as motor radiculopathy. Supporting Subjective Information Below: Past Medical History: PAST MEDICAL HISTORY Diagnosis Date anxiety Asthma sports induced. No attacks since age 16 depression Past Surgical History: PAST SURGICAL HISTORY Procedure Laterality Date INSERTION OF IUD 07/15/2020 Mirena PAST SURGICAL HISTORY OF wisdom teeth and root canal PAST SURGICAL HISTORY OF Right 03/09/2023 Heel spur removed and tendon cut for plantar fasciitis Family History: FAMILY HISTORY Problem Relation Age of Onset Asthma Mother other (Other tachycardia) Mother other (Other, hernia surgery) Father other (Other irregular heart rate) Father No Known Problems Sister No Known Problems Brother Cancer Maternal Grandmother skin cancer No Known Problems Maternal Grandfather Heart Paternal Grandmother other (benign tumor of ear) Paternal Grandmother No Known Problems Paternal Grandfather Asthma Brother Asthma Sister No Known Problems Son Social History: Social History Tobacco Use Smoking status: Never Smokeless tobacco: Never Vaping Use Vaping status: Never Used Substance Use Topics Alcohol use: Not Currently Comment: occasionally but not while Drug use: No Medications: Current Outpatient Medications Medication Sig FLUoxetine (PROZAC) 20 mg capsule Take 1 capsule by mouth once daily. traZODone (DESYREL) 50 mg tablet Take 1 tablet by mouth daily at bedtime. meloxicam (MOBIC) 15 mg tablet Take 15 mg by mouth once daily. diphenhydramine HCl (BENADRYL ORAL) Take by mouth. No current facility-administered medications for this visit. Allergies: Amoxicillin, Dicyclomine, and Seasonal Allergies ROS: General (negative for fatigue, malaise, weight loss/gain (more content not included)...[facility]11-11-[facility] History of Present illness Narrative* Luis Lovett MD - 03/12/2024 8:03 AM EST Luis Lovett MD Department of Orthopaedics Orthopaedics [facility] [address] [facility] [address] Dept: [phone] Dept March 12, 2024 CHIEF COMPLAINT: New and Pain of the Left Hand and New and Pain of the Right Hand HPI Patient here today for bilateral hand pain, R>L x 6 months. 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 She is right hand dominant. She has had a rheumatoid workup and all ofher blood work is normal. She recently completed a nerve conduction exam. 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 Will start with ultrasound exams of the ulnar nerves and follow-up from there. Cervical films would be next. Doppler exams of the arms if thoracic outlet remained a concern still. FOLLOW UP INSTRUCTIONS: Follow-up after elbow ultrasounds OBJECTIVE: Ms. Angelita Marley is a pleasant 28 year old in no apparent distress. Gen:LMP 01/23/2024 nl development, non obese, no deformities ENT: Normocephalic, normal hearing, moist mucosa CV: Pulses:Radial= 2+ and symmetric, capillary refill < 2 secs, no peripheral edema/varicosities Skin: no rash, bruising or lesions. Good turgor. Psych: cooperative and appropriate, alert and oriented x 3, good mood and affect. Musculoskeletal: Cervical spine has supple range of motion and no tenderness to palpation, Spurling's sign are equivocal bilaterally. Shoulders and elbows have full range of motion. No she reports reproduced symptomswith abduction and external rotation of bilateral arms, she does not have pulse dropping with provocative thoracic outlet testing right or left. Negative Tinel's over the cubital tunnel right and left, but positive Phalen's bilaterally at the elbows no subluxation of ulnar nerve at the elbow with flexion. Negative Tinel's over Guyon's canal. Inspection reveals no thenar atrophy. Intact sensation to light touch in the radial 3 digits. Sensation diminished in the ulnar 2 digits with out intrinsic atrophy, and some mild, symmetrical weaknesswith Froment's and intrinsic muscle strength testing. Negative Tinel's at the wrist, negative carpal tunnel compression testing on the right and left. No locking or catching of the digits. No tenderness to palpation or masses noted in the forearm or hand. IMAGING: Extensive electrodiagnostic examination of the right upper extremity and additional studies of the left upper extremity reveals no electrodiagnostic abnormalities. In particular, there is no evidence of a right and/or median neuropathy at or distal to the wrist (as seen in carpal tunnel syndrome), or a right C5-C8 intraspinal canal lesion, such as motor radiculopathy. Supporting Subjective Information Below: Past Medical History: PAST MEDICAL HISTORY Diagnosis Date anxiety Asthma sports induced. No attacks since age 16 depression Past Surgical History: PAST SURGICAL HISTORY Procedure Laterality Date INSERTION OF IUD 07/15/2020 Mirena PAST SURGICAL HISTORY OF wisdom teeth and root canal PAST SURGICAL HISTORY OF Right 03/09/2023 Heel spur removed and tendon cut for plantar fasciitis Family History: FAMILY HISTORY Problem Relation Age of Onset Asthma Mother other (Other tachycardia) Mother other (Other, hernia surgery) Father other (Other irregular heart rate) Father No Known Problems Sister No Known Problems Brother Cancer Maternal Grandmother skin cancer No Known Problems Maternal Grandfather Heart Paternal Grandmother other (benign tumor of ear) Paternal Grandmother No Known Problems Paternal Grandfather Asthma Brother Asthma Sister No Known Problems Son Social History: Social History Tobacco Use Smoking status: Never Smokeless tobacco: Never Vaping Use Vaping status: Never Used Substance Use Topics Alcohol use: Not Currently Comment: occasionally but not while Drug use: No Medications: Current Outpatient Medications Medication Sig FLUoxetine (PROZAC) 20 mg capsule Take 1 capsule by mouth once daily. traZODone (DESYREL) 50 mg tablet Take 1 tablet by mouth daily at bedtime. meloxicam (MOBIC) 15 mg tablet Take 15 mg by mouth once daily. diphenhydramine HCl (BENADRYL ORAL) Take by mouth. No current facility-administered medications for this visit. Allergies: Amoxicillin, Dicyclomine, and Seasonal Allergies ROS: General (negative for fatigue, malaise, weight loss/gain) HEENT (negative for headache, earache, recent vision changes, sinus pain, sore throat) Respiratory (no recent shortness of breath, hemoptysis) CV (negative for chest tightness, palpitations) Musculoskeletal (see HPI) Psych (no depression, anxiety) REFERRING PHYSICIAN: Consultation requested by Kenzie Bowen for an opinion regarding bilateral hand pain and numbness.My final recommendations will be communicated back to the requesting physician by way of shared Medical record or letter to requesting physician via US mail. Kenzie Bowen [address] [facility] [address] Munir Allisno MD [address] [facility] [id number] Luis Lovett MD Orthopaedic Medical Decision Making (MDM) Complexity of problems: Chronic condition with exacerbation or progression, Complexity of data: Independent interpretation of imaging, 1 unique test results reviewed, 2 uniquetests ordered, Assessment requiring an independent historian(s), Risk: Minimal risk of morbidity from testing/treatment, Level of MDM: Moderate (4) documented in this encounterK[facility]10-25-2024 Telephone encounter Note * Telephone Encounter - Manisha Lambert RN - 02/24/2024 8:54 AM EDT Pt called and is notified of providers message and instructions. Pt voices understanding. Manisha Lambert RN [facility]10-25-2024 Miscellaneous Notes* Telephone Encounter - Manisha Lambert RN - 02/24/2024 8:54 AM EDT Pt called and is notified of providers message and instructions. Pt voices understanding. Manisha Lambert RN * Telephone Encounter - Rama Bower LPN - 02/24/2024 8:48 AM EDT TC to pt. LM to call office, ask for triage nurse to get results. Rama Bower LPN * Telephone Encounter - Kenzie Bowen APRN.CATERING ADMINISTRATIVE ASSISTANT - 02/23/2024 4:46 PM EDT Can you please call the patient back and let her know that I would recommend that she keep upcomingappointment with orthopedics for further evaluation. Kenzie Bowen APRN.NOMI * Telephone Encounter - Manisha Lambert, RN - 02/17/2024 2:54 PM EDT Pt called and is notified of providers results. Pt states she can tell the strength in her hand is not what it used to be a couple months ago. She said eveerything else is about the same from when she saw the provider last. Manisha Lambert, RN * Telephone Encounter - Rama Bower LPN - 02/16/2024 3:46 PM EDT TC to pt. LM to call office, ask for triage nurse to get results. Rama Bower LPN * Telephone Encounter - Kenzie Bowen APRN.CNP - 02/16/2024 3:42 PM EDT Can you please call the patient and let her know that I reviewed her EMG results. EMG shows no signs of carpal tunnel or C5-C8 intraspinal canal lesions. Can you please ask how she has been doing? Any worsening symptoms? Kenzie Bowen APRN.NOMI [facility] Telephone encounter Note * Telephone Encounter - Rama Bower LPN - 02/24/2024 8:48 AM EDT TC to pt. LM to call office, ask for triage nurse to get results. Rama Bower LPN [facility]10-24-2024 Telephone encounter Note* Telephone Encounter - Kenzie Bowen APRN.CNP - 02/23/2024 4:46 PM EDT Can you please call the patient back and let her know that I would recommend that she keep upcomingappointment with orthopedics for further evaluation. Kenzie Bowen APRN.NOMI [facility]10-18-2024 Telephone encounter Note* Telephone Encounter - Manisha Lambert RN - 02/17/2024 2:54 PM EDT Pt called and is notified of providers results. Pt states she can tell the strength in her hand is not what it used to be a couple months ago. She said eveerything else is about the same from when she saw the provider last. Manisha Lambert, RN [facility]10-17-2024 Telephone encounter Note* Telephone Encounter - Rama Bower LPN - 02/16/2024 3:46 PM EDT TC to pt. LM to call office, ask for triage nurse to get results. Rama Bower LPN [facility]10-17-2024 Telephone encounter Note* Telephone Encounter - Kenzie Bowen APRN.CNP - 02/16/2024 3:42 PM EDT Can you please call the patient and let her know that I reviewed her EMG results. EMG shows no signs of carpal tunnel or C5-C8 intraspinal canal lesions. Can you please ask how she has been doing? Any worsening symptoms? Kenzie Bowen APRN.NOMI [facility]10-14-2024 History of Present illness Narrative* Lukas Roberts MD - 02/13/2024 12:45 PM EDT UNIVERSAL PROTOCOL / SAFETY CHECKLIST Procedure to be Performed: EMG Sign In: A Moment of CARE was completed. Personnel directly involved with the procedure wore the appropriate PPE (Personal Protective Equipment). Patient/Surrogate Stated/Verified: PATIENT VERIFIED(optional for EMERGENT procedures): Patient name, Date of , Relevant allergies, and The intended procedure Time Out Communication: Intended patient and procedure match the source documents. Correct side/site marked and visible. Sign Out: SIGN OUT (optional for EMERGENT procedures): Post-procedure follow-up management communicated and Plan of Care Visit completed when applicable. Chris Jeffery. Emg tech. Lukas Roberts MD Neuromuscular Medicine (NM) [facility] [place] documented in this encounterK[facility]10-03-2024 Instructions* Patient Instructions* Kenzie Bowen APRN.CNP - 02/02/2024 7:14 AM EDT Get labs completed Recommend consult with dermatology Recommend using wrist brace, using NSAIDS as needed for pain Complete EMG testing, nerve conduction test Consult placed for Orthopedics if needed. Follow up pending test results or sooner as needed. Recommend using sea salt spray for piercing documented in this encounterK[facility]10-03-2024 History of Present illness Narrative* Kenzie Bowen APRN.CNP - 02/02/2024 7:00 AM EDT This is a 28 year old female who presents today with: Patient presents with: Acute Visit: hand pain HISTORY OF PRESENT ILLNESS: Angelita Marley is a 28 year old female. Patient presents with: Acute Visit: hand pain Bilateral Hand pain: Has been on going for several months. No injury to the area. Right seems worsethan the left. Numbness starts in the fingers and radiates up to the elbow, which is intermittent. Hands/fingers feel stiff. Decreased barrel finisher strength. 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 Paternal grandmother has RA. Right ear pain, started 2 weeks ago after going to a water park. No fever or chills. Refers she just got a right upper ear piercing as well. Skin lesion bleeding on nose, left side, refers that when she blows nose or touches lesion it will bleed. PAST MEDICAL HISTORY: PAST MEDICAL HISTORY Diagnosis Date anxiety Asthma sports induced. No attacks since age 16 depression PAST SURGICAL HISTORY Procedure Laterality Date INSERTION OF IUD 07/15/2020 Mirena PAST SURGICAL HISTORY OF wisdom teeth and root canal ALLERGIES Amoxicillin, Dicyclomine, and Seasonal Allergies MEDICATIONS Current Outpatient Medications Medication Sig FLUoxetine (PROZAC) 20 mg capsule Take 1 capsule by mouth once daily. traZODone (DESYREL) 50 mg tablet Take 1 tablet by mouth daily at bedtime. meloxicam (MOBIC) 15 mg tablet Take 15 mg by mouth once daily. diphenhydramine HCl (BENADRYL ORAL) Take by mouth. No current facility-administered medications for this visit. FAMILY HISTORY Problem Relation Age of Onset Asthma Mother other (Other tachycardia) Mother other (Other, hernia surgery) Father other (Other irregular heart rate) Father No Known Problems Sister No Known Problems Brother Cancer Maternal Grandmother skin cancer No Known Problems Maternal Grandfather Heart Paternal Grandmother other (benign tumor of ear) Paternal Grandmother No Known Problems Paternal Grandfather Asthma Brother Asthma Sister No Known Problems Son Social History Tobacco Use Smoking status: Never Smokeless tobacco: Never Vaping Use Vaping status: Never Used Substance Use Topics Alcohol use: Not Currently Comment: occasionally but not while Drug use: No REVIEW OF SYSTEMS GENERAL: No weight loss, malaise or fevers/chills HEENT: + Right ear pain NECK: Negative for lumps, goiter, pain and significant neck swelling RESPIRATORY: Negative for cough, hemoptysis, wheezing, dyspnea or shortness of breath CARDIOVASCULAR: Negative for chest pain, leg swelling, orthopnea, or palpitations GI: No nausea, vomiting, or diarrhea/constipation. No hematochezia/melena. No heartburn or reflux symptoms. : No history of dysuria, frequency or incontinence MUSCULOSKELETAL: + Hand Pain SKIN: + Skin Lesion Nose ENDOCRINE: Negative for cold or heat intolerance, polyuria, polydipsia and goiter NEURO: + Numbness and tingling in the hands MOOD: Negative for depression, anxiety, or suicidal ideation. EXAM: BP 118/77 Pulse 76 Resp 16 Wt 73.3 kg (161 lb 9.6 oz) LMP 01/23/2024 SpO2 98% BMI 29.56kg/m PHYSICAL EXAM: General Appearance: Well appearing, alert, in no acute distress, well-hydrated, well nourished. Skin: Small, crusty, skin colored lesion noted on the left nose. No bleeding. No erythema. Head: Normocephalic, no masses, lesions, tenderness or abnormalities. Eyes: Anicteric sclera. Extraocular movements are intact. Ears: External ears normal, canals clear. TMs pearly moncada. Lungs: Lungs clear to auscultation. No wheezing, rhonchi, rales. Heart: RRR without murmur, gallop, or rubs. No ectopy. Extremities: No deformities, edema, skin discoloration, clubbing or cyanosis. Good capillary refill. Musculoskeletal: Bilateral hands, full ROM, tenderness noted in the right hand with palpation, no swelling or color change noted. Decreased barrel finisher strength noted in the right hand. Tapping test and raising arm above the head recreate symptoms, numbness and tingling noted. Peripheral Pulses: Normal, Capillary refill <2secs, strong peripheral pulses, Pulses palpable. Neurologic: Gait normal. Reflexes normal and symmetric. Sensation grossly intact. ASSESSMENT/PLAN: 1. Pain in both hands - ICD9: 729.5, ICD10: M79.641, M79.642 (primary diagnosis) - Concerns for possible carpal tunnel syndrome, however with family history of RA will get additional test completed. - Instructed to complete EMG - Recommend using wrist brace and anti-inflammatories as needed. - Consult has been placed for orthopedics if needed. - SEDIMENTATION RATE, WESTERGREN - C-REACTIVE PROTEIN - HAILE BLOOD - RHEUMATOID FACTOR - EMG(NEURO/NI) - CONSULT TO ORTHOPAEDICS 2. Numbness and tingling - ICD9: 782.0, ICD10: R20.0, R20.2 - Same plan as #1. 3. Skin lesion - ICD9: 709.9, ICD10: L98.9 - CONSULT TO DERMATOLOGY 4. Right ear pain - ICD9: 388.70, ICD10: H92.01 - Exam WNL, pain may be referred from recent ear piercing. 5. Screening for depression - ICD9: V79.0, ICD10: Z13.31 - DEPRESSION SCREENING 6. Encounter for screening examination for other mental health and behavioral disorders - ICD9: V79.8, ICD10: Z13.39 - ANXIETY SCREENING Follow-up pending test results or sooner as needed. Discussed treatment plan and patient voices understanding. Patient's questions answered appropriately. Medications and potential side effects were discussed and patient voices understanding. Kenzie Bowen APRN.CNP This note was partially generated using [employer] voice recognition system. Note was reviewed for accuracy. There may be minor misspellings or grammar miscues with [employer] voice recognition. documented in this encounterK[facility]09-30-2024 Telephone encounter Note * Telephone Encounter - Debbi Vallecillo MA - 01/30/2024 8:11 AM EDT Advised pt she would need an appointment. Debbi Vallecillo MA [facility]09-30-2024 Miscellaneous Notes* Telephone Encounter - Debbi Vallecillo MA - 01/30/2024 8:11 AM EDT Advised pt she would need an appointment. Debbi Vallecillo MA documented in this encounterK[facility]07-05-2024 Telephone encounter Note * Telephone Encounter - Kenzie Bowen APRN.CNP - 11/04/2023 11:26 AM EDT The following approved medication requests have been transmitted electronically. Requested Prescriptions Signed Prescriptions Disp Refills FLUoxetine (PROZAC) 20 mg capsule 30 capsule 5 Sig: Take 1 capsule by mouth once daily. Kenzie Bowen APRN.NOMI [facility]07-05-2024 Miscellaneous Notes* Telephone Encounter - Kenzie Bowen APRN.CNP - 11/04/2023 11:26 AM EDT The following approved medication requests have been transmitted electronically. Requested Prescriptions Signed Prescriptions Disp Refills FLUoxetine (PROZAC) 20 mg capsule 30 capsule 5 Sig: Take 1 capsule by mouth once daily. Kenzie Bowen APRN.NOMI * Telephone Encounter - Dionne Walters MA - 11/04/2023 8:06 AM EDT See pt message and advise. Dionne Walters MA documented in this encounterK[facility]07-05-2024 Telephone encounter Note * Telephone Encounter - Dionne Walters MA - 11/04/2023 8:06 AM EDT See pt message and advise. Dionne Walters MA [facility]06-25-2024 Telephone encounter Note* Telephone Encounter - Jocelynn Vela LPN - 10/25/2023 4:36 PM EDT Left message that medication for 90 days was sent to her pharmacy. Jocelynn Vela LPN [facility]06-25-2024 Miscellaneous Notes* Telephone Encounter - Jocelynn Vela LPN - 10/25/2023 4:36 PM EDT Left message that medication for 90 days was sent to her pharmacy. Jocelynn Vela LPN * Telephone Encounter - Munir Allison MD - 10/25/2023 4:29 PM EDT OK to refill as ordered Munir Allison MD * Telephone Encounter - Debbi Vallecillo MA - 10/25/2023 3:38 PM EDT Prescription Refill Information The patient has been identified by name and date of : Yes Caregiver verified no other encounters exist for this prescription request: Yes Caregiver confirmed with patient/requestor that no other refills are due, in the near future, with this provider at this time: No The last office visit in the department: 09/22/23 Does the patient have a future office visit with this provider/department: Yes 09/21/24 Requested Prescriptions Pending Prescriptions Disp Refills PARoxetine (PAXIL) 20 mg tablet 90 tablet 1 Sig: Take 1 tablet by mouth once daily. PARoxetine (PAXIL) 20 mg tablet [Kenzie Bowen APRN.CATERING ADMINISTRATIVE ASSISTANT] Patient Comment: Can i please have my paxil refilled with a 90 days supply per my insurance. Thank you! Debbi Vallecillo MA October 25, 2023 3:38 PM documented in this encounterK[facility]06-25-2024 Telephone encounter Note * Telephone Encounter - Munir Allison MD - 10/25/2023 4:29 PM EDT OK to refill as ordered Munir Allison MD [facility]06-25-2024 Telephone encounter Note* Telephone Encounter - Debbi Vallecillo MA - 10/25/2023 3:38 PM EDT Prescription Refill Information The patient has been identified by name and date of : Yes Caregiver verified no other encounters exist for this prescription request: Yes Caregiver confirmed with patient/requestor that no other refills are due, in the near future, with this provider at this time: No The last office visit in the department: 09/22/23 Does the patient have a future office visit with this provider/department: Yes 09/21/24 Requested Prescriptions Pending Prescriptions Disp Refills PARoxetine (PAXIL) 20 mg tablet 90 tablet 1 Sig: Take 1 tablet by mouth once daily. PARoxetine (PAXIL) 20 mg tablet [Kenzie Bowen, HUNTER TRAPPER.CATERING ADMINISTRATIVE ASSISTANT] Patient Comment: Can i please have my paxil refilled with a 90 days supply per my insurance. Thank you! Debbi Vallecillo MA October 25, 2023 3:38 PM [facility]06-20-2024 NotePatient: Angelita Marley Date of : 1995 (28 y.o.) PCP: Bri Sánchez MD Procedures ASSESSMENT/PLAN: Angelita Marley 28 y.o. female with history of plantar fasciitis right heel doing much better. Forefoot valgus bilateral feet with a history of plantar fasciitis in the left foot. Plan: Patient was told to keep stretching out the plantar fascia in the morning before walking. Patient was also told to take her Mobic daily as needed for pain. I prescribed 1 pair of custom-made orthotics with first metatarsal head cut outs. Reappoint in 6 weeks Assessment & plan notes cannot be loaded without a specified hospital service. SUBJECTIVE: History Since Last Visit: Patient a 28-year-old female who relates she bought some bpby-vhe-khtzhdl power step inserts which have not worked well for her plantar fasciitis. Patient states it is aggravated the left plantar fascia as well. Patient has been wearing the L and M taping and padding which seems to help her right foot. Patient did not feel a cortisone shot or physical therapy was necessary as long as we can find something to support the arch of her right foot. Review of Systems: OBJECTIVE: Physical Examination: Integument-there is scar on the medial side of the right heel that is remodeling nicely. Neuro-no pain over the Baxters nerve or posterior tibial nerve the right heel. Musculoskeletal-patient has decreased pain and swelling of the medial and central bands of plantar fascia ligament on the right heel. Patient states she has some mild pain in the medial and central bands of plantar fascia ligament on the left heel on occasion. Patient is no pain with zfzd-bs-vcik squeeze test of either heel. Patient has a forefoot valgus of both feet. Vascular-DP and PT pulses palpable bilateral feet. BP 113/73 (BP Location: Left arm, Patient Position: Sitting, BP Cuff Size: Adult) Pulse 71 Temp 98.4 degrees F (36.9 degrees C) (Infrared) Laboratory and Additional Data Reviewed: Reviewed:[id number]} XR Foot Right 3+ Views (Standard) X-rays 2 views right heel: There is no signs of stress fracture or recurrent calcaneal spur. AUTHENTICATED BY GIO RICHARDSON, ON 10/20/2023 09:15:19[facility]06-20-2024 History of Present illness Narrative* Gio Richardson, DPM - 10/20/2023 9:10 AM EDT Patient: Angelita Marley Date of : 1995 (28 y.o.) PCP: Bri Sánchez MD Procedures ASSESSMENT/PLAN: Angelita Marley 28 y.o. female with history of plantar fasciitis right heel doing much better. Forefoot valgus bilateral feet with a history of plantar fasciitis in the left foot. Plan: Patient was told to keep stretching out the plantar fascia in the morning before walking. Patient was also told to take her Mobic daily as needed for pain. I prescribed 1 pair of custom-made orthotics with first metatarsal head cut outs. Reappoint in 6 weeks Assessment & plan notes cannot be loaded without a specified hospital service. SUBJECTIVE: History Since Last Visit: Patient a 28-year-old female who relates she bought some fyjz-qqy-booustczsmnl step inserts which have not worked well for her plantar fasciitis. Patient states it is aggravated the left plantar fascia as well. Patient has been wearing the L and M taping and padding whichseems to help her right foot. Patient did not feel a cortisone shot or physical therapy was necessary as long as we can find something to support the arch of her right foot. Review of Systems: OBJECTIVE: Physical Examination: Integument-there is scar on the medial side of the right heel that is remodeling nicely. Neuro-no pain over the Baxters nerve or posterior tibial nerve the right heel. Musculoskeletal-patient has decreased pain and swelling of the medial and central bands of plantar fascia ligament on the right heel. Patient states she has some mild pain in the medial and central bands of plantar fascia ligament on the left heel on occasion. Patient is no pain with lgqq-cy-ducc squeeze test of either heel. Patient has a forefoot valgus of both feet. Vascular-DP and PT pulses palpable bilateral feet. BP 113/73 (BP Location: Left arm, Patient Position: Sitting, BP Cuff Size: Adult) Pulse 71 Temp98.4 F (36.9 C) (Infrared) Laboratory and Additional Data Reviewed: Reviewed:[id number]} XR Foot Right 3+ Views (Standard) X-rays 2 views right heel: There is no signs of stress fracture or recurrent calcaneal spur. documented in this [id number] Telephone encounter Note* Telephone Encounter - Munir Allison MD - 10/07/2023 8:36 AM EDT OK to refill as ordered Munir Allison MD [facility]2024 Miscellaneous Notes* Telephone Encounter - Munir Allison MD - 10/07/2023 8:36 AM EDT OK to refill as ordered Munir Allison MD * Telephone Encounter - Rama Bower LPN - 10/07/2023 7:41 AM EDT [facility]-09/22/23 Labs-09/22/23 NOV-09/21/24 Rama Bower LPN documented in this encounterK[facility]2024 Telephone encounter Note * Telephone Encounter - Rama Bower LPN - 10/07/2023 7:41 AM EDT [facility]-09/22/23 Labs-09/22/23 NOV-09/21/24 Rama Bower LPN [facility]05-30-2024 NotePatient: Angelita Marley Date of : 1995 (28 y.o.) PCP: Bri Sánchez MD Procedures ASSESSMENT/PLAN: Angelita Marley 28 y.o. female with history of status post plantar fasciotomy heel spur resection of the right foot doing better. Plan: I prescribed 1 pair of full-length functional orthotics to be worn with stiff soled tennis shoes. I applied an L and M taping and padding to the right foot to be worn with tennis shoes until she obtains orthotics. I advised patient to stretch the plantar fascia daily, wear her inserts, ice and take an anti-inflammatory such as Mobic daily. Reappoint in 1 month Assessment & plan notes cannot be loaded without a specified hospital service. SUBJECTIVE: History Since Last Visit: Patient 28-year-old female who comes in for a flareup of her right heel pain. Patient been wearing her boot daily and reports improvements. Patient unfortunately has no orthotics but was willing to try them to replace the boot. Patient's been using Mobic and icing the heel down. Review of Systems: OBJECTIVE: Physical Examination: Integument-skin is warm dry and supple bilateral feet. The scar is remodeling better on the medial side of the right heel. Neuro-no pain over the Baxters nerve or posterior tibial nerve right foot. Musculoskeletal-patient has decreased pain on palpation the medial and central bands of plantar fascia of the right heel. Patient has no pain with zbou-qw-shgm squeeze test the right heel. Vascular-DP and PT pulses are palpable on the right foot. Cap refill times less than 3 seconds the foot is warm to touch. BP 118/81 (BP Location: Left arm, Patient Position: Sitting, BP Cuff Size: Adult) Pulse 87 Temp 98.1 degrees F (36.7 degrees C) (Temporal) LMP 07/23/2023 Laboratory and Additional Data Reviewed: Reviewed:[id number]} XR Foot Right 3+ Views (Standard) X-rays 2 views right heel: There is no signs of stress fracture or recurrent calcaneal spur. AUTHENTICATED BY GIO RICHARDSON, ON 09/29/2023 09:22:05[facility]05-30-2024 History of Present illness Narrative* Gio Richardson, DPM - 09/29/2023 9:19 AM EDT Patient: Angelita Marley Date of : 1995 (28 y.o.) PCP: Bri Sánchez MD Procedures ASSESSMENT/PLAN: Angelita Marley 28 y.o. female with history of status post plantar fasciotomy heel spur resection of the right foot doing better. Plan: I prescribed 1 pair of full-length functional orthotics to be worn with stiff soled tennis shoes. I applied an L and M taping and padding to the right foot to be worn with tennis shoes until she obtains orthotics. I advised patient to stretch the plantar fascia daily, wear her inserts, ice and take an anti-inflammatory such as Mobic daily. Reappoint in 1 month Assessment & plan notes cannot be loaded without a specified hospital service. SUBJECTIVE: History Since Last Visit: Patient 28-year-old female who comes in for a flareup of her right heel pain. Patient been wearing her boot daily and reports improvements. Patient unfortunately has no orthotics but was willing to try them to replace the boot. Patient's been using Mobic and icing the heeldown. Review of Systems: OBJECTIVE: Physical Examination: Integument-skin is warm dry and supple bilateral feet. The scar is remodeling better on the medial side of the right heel. Neuro-no pain over the Baxters nerve or posterior tibial nerve right foot. Musculoskeletal-patient has decreased pain on palpation the medial and central bands of plantar fascia of the right heel. Patient has no pain with djtj-vk-oeko squeeze test the right heel. Vascular-DP and PT pulses are palpable on the right foot. Cap refill times less than 3 seconds the foot is warm to touch. BP 118/81 (BP Location: Left arm, Patient Position: Sitting, BP Cuff Size: Adult) Pulse 87 Temp98.1 F (36.7 C) (Temporal) LMP 07/23/2023 Laboratory and Additional Data Reviewed: Reviewed:[id number]} XR Foot Right 3+ Views (Standard) X-rays 2 views right heel: There is no signs of stress fracture or recurrent calcaneal spur. documented in this [id number] Telephone encounter Note* Telephone Encounter - Debbi Vallecillo MA - 09/23/2023 8:36 AM EDT Pt notified of results via [employer]. Debbi Vallecillo Ma [facility]05-24-2024 Miscellaneous Notes* Telephone Encounter - Debbi Vallecillo MA - 09/23/2023 8:36 AM EDT Pt notified of results via [employer]. Debbi Vallecillo Ma * Telephone Encounter - Kenzie Bowen APRN.[facility] - 09/23/2023 8:27 AM EDT Can you please call the patient and let her know I reviewed her lab results. A1c was 4.4, no signs of diabetes. Vitamin D, thyroid, and B12 were all normal. LDL cholesterol was just mildly elevated. I would recommend lifestyle changes at home to help improve this. Be mindful of processed foods in the diet, increase lean protein, vegetables, and get some form exercise. No signs of anemia, however iron was low normal. If she is having ongoing fatigue she may benefit from taking an iron supplement 2-3 times weekly. Please let me know if she has any questions. Thank you. Kenzie Bowen APRN.CNP documented in this encounterK[facility]05-24-2024 Telephone encounter Note * Telephone Encounter - Kenzie Bowen APRN.CNP - 09/23/2023 8:27 AM EDT Can you please call the patient and let her know I reviewed her lab results. A1c was 4.4, no signs of diabetes. Vitamin D, thyroid, and B12 were all normal. LDL cholesterol was just mildly elevated. I would recommend lifestyle changes at home to help improve this. Be mindful of processed foods in the diet, increase lean protein, vegetables, and get some form exercise. No signs of anemia, however iron was low normal. If she is having ongoing fatigue she may benefit from taking an iron supplement 2-3 times weekly. Please let me know if she has any questions. Thank you. Kenzie Bowen APRN.CNP [facility]05-23-2024 Instructions* Patient Instructions* Kenzie Bowen APRN.CNP - 09/22/2023 8:10 AM EDT Get labs completed today Increase Paxil 20 mg daily Start Rifaximin 550 mg three times daily for 2 weeks, this will hopefull stop the diarrhea, if no Improvement contact the office. Due for pap this year, may discuss lesion with [employer]GER [employer] Follow up in 1 year or sooner as needed. Health Promotion: - Eat healthy -- go to [employer] to get started - Have a yearly physical - Get at least 30 minutes of physical activity daily - Get at least 7 to 8 hours of sleep each night - Reach and maintain a healthy weight - Get help to quit or don't start smoking - Limit alcohol use to one drink or less - Do not use illegal drugs or misuse prescription drugs - Wear a helmet when riding a bike and wear protective gear for sports - Wear a seatbelt in cars and not text and drive - Wear sunscreen documented [facility] History of Present illness Narrative* Kenzie Bowen APRN.NOMI - 09/22/2023 8:00 AM EDT This is a 28 year old female who presents today with: Patient presents with: Physical HISTORY OF PRESENT ILLNESS: Angelita Marley is a 28 year old female. No chief complaint on file. Wellness exam Diet: Eating a well balanced diet. Exercise: Limited due to walking boot, had heel spur removal andtendon repair. Vision: Had exam, wears glasses. Dental: Due for exam. Sleep: 10 hours per night. Anxiety: In July started on Paxil 10 mg daily. Mild improvement with anxiety. Not as anxious, sleeping better. No SI/Hi,. Would like to try an increased mg. Difficulty sleeping: Taking trazodone 50 mg at bedtime as needed. Working well. Groin Lesion: right side, has been present for the past 2 yeasrs. Seems to get larger around gann. Can be tender at times. Originally thought it was an ingrown hair. Fatigue has been on going for some time. Refers that she can get dryer foods stuck in throat at times. No vomiting. Will drinks fluids to help. No GERD. Diarrhea: Ongoing diarrhea for the past 2 years. Refers on a good day will have 3 episodes daily, on a bad day she is having an episode once every hour. No blood in the stool. Has noticed a sensitivity with dairy products. Increase in abdominal bloating. Pap: Last completed 2020, due for pap this year. Menses: Regular, IUD taken out in 2020. Vaccines: UTD PAST MEDICAL HISTORY: PAST MEDICAL HISTORY Diagnosis Date anxiety Asthma sports induced. No attacks since age 16 depression PAST SURGICAL HISTORY Procedure Laterality Date INSERTION OF IUD 07/15/2020 Mirena PAST SURGICAL HISTORY OF wisdom teeth and root canal ALLERGIES Amoxicillin and Seasonal Allergies MEDICATIONS Current Outpatient Medications Medication Sig PARoxetine (PAXIL) 10 mg tablet Take 1 tablet by mouth once daily. traZODone (DESYREL) 50 mg tablet Take 1 tablet by mouth daily at bedtime. hydrOXYzine HCl (ATARAX) 25 mg tablet Take 1 tablet by mouth every 6 hours as needed for anxiety. diphenhydramine HCl (BENADRYL ORAL) Take by mouth. No current facility-administered medications for this visit. FAMILY HISTORY Problem Relation Age of Onset Asthma Mother other (Other tachycardia) Mother other (Other, hernia surgery) Father other (Other irregular heart rate) Father No Known Problems Sister No Known Problems Brother Cancer Maternal Grandmother skin cancer No Known Problems Maternal Grandfather Heart Paternal Grandmother other (benign tumor of ear) Paternal Grandmother No Known Problems Paternal Grandfather Asthma Brother Asthma Sister No Known Problems Son Social History Tobacco Use Smoking status: Never Smokeless tobacco: Never Vaping Use Vaping Use: Never used Substance Use Topics Alcohol use: Not Currently Comment: occasionally but not while Drug use: No REVIEW OF SYSTEMS GENERAL: + Fatigue HEENT: Negative for frequent or significant headaches, No changes in hearing or vision. NECK: Negative for lumps, goiter, pain and significant neck swelling RESPIRATORY: Negative for cough, hemoptysis, wheezing, dyspnea or shortness of breath CARDIOVASCULAR: Negative for chest pain, leg swelling, orthopnea, or palpitations GI: + Diarrhea/Bloating : No history of dysuria, frequency or incontinence MUSCULOSKELETAL: Negative for joint pain or swelling. SKIN: + Groin Lesion ENDOCRINE: Negative for cold or heat intolerance, polyuria, polydipsia and goiter NEURO: No history of headaches, syncope, paralysis, seizures or tremors MOOD: + Anxiety EXAM: BP 110/68 Pulse 69 Resp 16 Wt 70.2 kg (154 lb 12.8 oz) LMP 09/12/2023 (Approximate) SpO2 98% BMI 28.31 kg/m PHYSICAL EXAM: General Appearance: Well appearing, alert, in no acute distress, well-hydrated, well nourished. Skin: Skin color, texture, turgor normal, no suspicious rashes or lesions. Head: Normocephalic, no masses, lesions, tenderness or abnormalities. Eyes: Anicteric sclera. Pupils are equally round and reactive to light. Extraocular movements are intact. Ears: External ears normal, canals clear. TMs pearly moncada. Neck: Supple, no adenopathy; thyroid symmetric, normal size, no bruits. Lungs: Lungs clear to auscultation. No wheezing, rhonchi, rales. Heart: RRR without murmur, gallop, or rubs. No ectopy. Abdomen: Normal abdominal exam, Abdomen soft, non-tender. Bowel sounds normal. No masses, organomegaly. Extremities: No deformities, edema, skin discoloration, clubbing or cyanosis. Good capillary refill. Musculoskeletal: No joint swelling, deformity, or tenderness. Peripheral Pulses: Normal, Capillary refill <2secs, strong peripheral pulses, Pulses palpable. Neurologic: Gait normal. Reflexes normal and symmetric. Sensation grossly intact.. Pelvic: External genitalia Normal, and vagina normal., Positive findings: right distal labia, deep,mobile soft mass, non-tender, no erythema, or signs of abscess. Mood: Pleasant, engaged, good eye contact. ASSESSMENT/PLAN: 1. Wellness examination - ICD9: V70.0, ICD10: Z00.00 (primary diagnosis) - Counseled on healthy diet and regular exercise - Follow up for annual exam in one year - Due for Pap - COMPREHENSIVE METABOLIC PANEL 2. CARO (generalized anxiety disorder) - ICD9: 300.02, ICD10: F41.1 - Increase Paxil 20 mg daily. - PAROXETINE 20 MG TABLET 3. Irritable bowel syndrome with diarrhea - ICD9: 564.1, ICD10: K58.0 - Start Rifaximin, 2 weeks. - Symptoms consistent with IBS-D, if no improvement discussed consult with gastroenterology. - RIFAXIMIN 550 MG TABLET 4. Fatigue, unspecified type - ICD9: 780.79, ICD10: R53.83 - COMPLETE BLOOD COUNT AND DIFFERENTIAL - THYROID STIMULATING HORMONE - T4 FREE/FREE THYROXINE - VITAMIN D 25 HYDROXY - VITAMIN B12 - IRON AND TIBC - FERRITIN 5. Groin mass in female - ICD9: 789.39, ICD10: R19.09 - Recommend evaluation with [employer] 6. Difficulty sleeping - ICD9: 780.50, ICD10: G47.9 - Stable, continue with Trazodone prn. 7. Dysphagia, unspecified type - ICD9: 787.20, ICD10: R13.10 - Get labs completed, pending results, may need consult for EGD. - THYROID STIMULATING HORMONE - T4 FREE/FREE THYROXINE - VITAMIN D 25 HYDROXY 8. Screening cholesterol level - ICD9: V77.91, ICD10: Z13.220 - LIPID PANEL BASIC 9. Screening for diabetes mellitus - ICD9: V77.1, ICD10: Z13.1 - HEMOGLOBIN A1C Follow-up in 1 year or sooner pending test results. Discussed treatment plan and patient voices understanding. Patient's questions answered appropriately. Medications and potential side effects were discussed and patient voices understanding. Kenzie Bowen APRN.NOMI This note was partially generated using [employer] voice recognition system. Note was reviewed for accuracy. There may be minor misspellings or grammar miscues with [employer] voice recognition. documented in this [facility] Telephone encounter Note * Telephone Encounter - Alycia Giraldo LPN - 09/12/2023 9:54 AM EDT Pt just had a refill on 08/11/23 she had 2 refills so there is still remaining refills at pharmacy. Pt notified of such and refill denied. [facility]-13-2024 Miscellaneous Notes* Telephone Encounter - Alycia Giraldo LPN - 09/12/2023 9:54 AM EDT Pt just had a refill on 08/11/23 she had 2 refills so there is still remaining refills at pharmacy. Pt notified of such and refill denied. documented in this encounterK[facility]24 NotePatient: Angelita Marley Date of : 1995 (28 y.o.) PCP: Bri Sánchez MD Procedures ASSESSMENT/PLAN: Angelita Marley 28 y.o. female with history of recurrent plantar fasciitis scar tissue of the right heel Plan: I placed patient on a Medrol Dosepak. I asked patient to get back to stretching, icing and return to her cam walker boot. Patient was told to refrain from walking for exercise. Patient to reappoint in 1 month if not better we will consider some physical therapy or cortisone shot. Assessment & plan notes cannot be loaded without a specified hospital service. SUBJECTIVE: History Since Last Visit: Patient is a 28-year-old female who have not seen for the last 4 months since her plantar fasciitis heel spur surgery. Patient relates it was doing fine in June and June and then when it got warm she began exercising which seem to flareup the heel pain. Patient has tried stretching and icing without much improvement. Patient has a pair of Hoka's on. Review of Systems: OBJECTIVE: Physical Examination: Integument-there is some scar tissue on the medial side of the right heel. Neuro-patient has some tingling when I palpate the Baxters nerve on the medial side of the right heel. Musculoskeletal-patient has some pain and swelling on the medial and central bands of plantar fascia ligament on the right heel. Minimal pain with [id number] squeeze test of the right calcaneal body. Vascular-DP and PT pulses palpable right foot. BP 116/79 (BP Location: Left arm, Patient Position: Sitting, BP Cuff Size: Adult) Pulse 82 Temp 98.4 degrees F (36.9 degrees C) (Temporal) LMP 07/23/2023 Laboratory and Additional Data Reviewed: Reviewed:[id number]} CT Angiogram Head Neck Narrative: EXAMINATION: CT ANGIOGRAM HEAD NECK HISTORY: ORDERING SYSTEM PROVIDED HISTORY: Severe new onset headache, TECHNOLOGIST PROVIDED HISTORY: Illness/Other Reason for exam: severe new onset headache Encounter Type: Initial Additional signs and symptoms: nausea, light sensitivity ORDERING SYSTEM PROVIDED DIAGNOSIS CODES: COMPARISON: None TECHNIQUE: Noncontrast CT of the head was obtained with sagittal and coronal reformats. Subsequent CT angiogram was obtained through the neck and head following the administration of intravenous contrast material. MIP (maximum intensity projection) images were performed and/or 3D reconstructions on an independent workstation were performed. Carotid stenosis is reported according to NASCET criteria. Dose reduction techniques were achieved by using automated exposure control and/or adjustment of mA and/or kV according to patient size and/or use of iterative reconstruction technique. CONTRAST: IOPAMIDOL 370 MG IODINE/ML (76 %) INTRAVENOUS SOLUTION - 75 mL, FINDINGS: Noncontrast CT head: The ventricles, sulci, and remaining CSF containing spaces maintain age-appropriate volume and symmetry. No herniation or hydrocephalus. The moncada matter/white matter differentiation is maintained throughout. No CT evidence of contemporary infarction. No acute intracranial hemorrhage or parenchymal mass. The calvarium and skull base are intact. The pneumatized portions of the skull are clear. CT angiogram of the neck: The thoracic aorta arch is normal in caliber. Three-vessel aortic arch branching pattern. The common carotid arteries, and internal carotid arteries are patent. The right vertebral artery is dominant.. The bilateral vertebral arteries are patent. No dissection, occlusion, or hemodynamically significant stenosis. No lymphadenopathy. The right parotid gland is unremarkable. Small intraparotid lymph nodes noted on left. The submandibular glands are normal. The thyroid gland is unremarkable. The airway is patent. No focal fluid collection within the neck. No fracture. CT angiogram of the head: The internal carotid arteries, middle cerebral arteries, anterior communicating artery, and anterior cerebral arteries are patent. The bilateral vertebral arteries, basilar artery, posterior cerebral arteries, posterior inferior cerebellar arteries and superior cerebellar arteries are patent. Posterior communicating arteries are patent. No aneurysm. No hemodynamically significant stenosis or arterial occlusion. The superior sagittal sinus, transverse sinuses, sigmoid sinuses, straight sinus are patent. The deep cerebral veins are patent. The major cortical veins are patent. There is no abnormal brain parenchymal enhancement. Impression: CT head: 1. No acute intracranial abnormality. CT angiogram head: 1. No aneurysm or hemodynamically significant stenosis within the head. CT angiogram neck: 1. No dissection or hemodynamically significant stenosis within the neck. Workstation ID: [id number] AUTHENTICATED BY GIO RICHARDSON, ON 09/01/2023 16:07:44[facility]05-02-2024 History of Present illness Narrative* Gio Richardson DP - 09/01/2023 4:02 PM EDT Patient: Angelita Marley Date of : 1995 (28 y.o.) PCP: Bri Sánchez MD Procedures ASSESSMENT/PLAN: Angelita Marley 28 y.o. female with history of recurrent plantar fasciitis scar tissue of the right heel Plan: I placed patient on a Medrol Dosepak. I asked patient to get back to stretching, icing and return to her cam walker boot. Patient was told to refrain from walking for exercise. Patient to reappoint in 1 month if not better we will consider some physical therapy or cortisone shot. Assessment & plan notes cannot be loaded without a specified hospital service. SUBJECTIVE: History Since Last Visit: Patient is a 28-year-old female who have not seen for the last 4 months since her plantar fasciitis heel spur surgery. Patient relates it was doing fine in June and June and then when it got warm she began exercising which seem to flareup the heel pain. Patient has tried stretching and icing without much improvement. Patient has a pair of Hoka's on. Review of Systems: OBJECTIVE: Physical Examination: Integument-there is some scar tissue on the medial side of the right heel. Neuro-patient has some tingling when I palpate the Baxters nerve on the medial side of the right heel. Musculoskeletal-patient has some pain and swelling on the medial and central bands of plantar fascia ligament on the right heel. Minimal pain with [id number] squeeze test of the right calcaneal body. Vascular-DP and PT pulses palpable right foot. BP 116/79 (BP Location: Left arm, Patient Position: Sitting, BP Cuff Size: Adult) Pulse 82 Temp98.4 F (36.9 C) (Temporal) LMP 07/23/2023 Laboratory and Additional Data Reviewed: Reviewed:[id number]} CT Angiogram Head Neck Narrative: EXAMINATION: CT ANGIOGRAM HEAD NECK HISTORY: ORDERING SYSTEM PROVIDED HISTORY: Severe new onset headache, TECHNOLOGIST PROVIDED HISTORY: Illness/Other Reason for exam: severe new onset headache Encounter Type: Initial Additional signs and symptoms: nausea, light sensitivity ORDERING SYSTEM PROVIDED DIAGNOSIS CODES: COMPARISON: None TECHNIQUE: Noncontrast CT of the head was obtained with sagittal and coronal reformats. Subsequent CT angiogram was obtained through the neck and head following the administration of intravenous contrast material. MIP (maximum intensity projection) images were performed and/or 3D reconstructions on an independent workstation were performed. Carotid stenosis is reported according to NASCET criteria. Dose reduction techniques were achieved by using automated exposure control and/or adjustment of mAand/or kV according to patient size and/or use of iterative reconstruction technique. CONTRAST: IOPAMIDOL 370 MG IODINE/ML (76 %) INTRAVENOUS SOLUTION - 75 mL, FINDINGS: Noncontrast CT head: The ventricles, sulci, and remaining CSF containing spaces maintain age- appropriate volume and symmetry. No herniation or hydrocephalus. The moncada matter/white matter differentiation is maintained throughout. No CT evidence of contemporary infarction. No acute intracranial hemorrhage or parenchymal mass. The calvarium and skull base are intact. The pneumatized portions of the skull are clear. CT angiogram of the neck: The thoracic aorta arch is normal in caliber. Three-vessel aortic arch branching pattern. The common carotid arteries, and internal carotid arteries are patent. The right vertebral artery is dominant.. The bilateral vertebral arteries are patent. No dissection, occlusion, or hemodynamically significant stenosis. No lymphadenopathy. The right parotid gland is unremarkable. Small intraparotid lymph nodes noted on left. The submandibular glands are normal. The thyroid gland is unremarkable. The airway is patent. No focal fluid collection within the neck. No fracture. CT angiogram of the head: The internal carotid arteries, middle cerebral arteries, anterior communicating artery, and anterior cerebral arteries are patent. The bilateral vertebral arteries, basilar artery, posterior cerebral arteries, posterior inferior cerebellar arteries and superior cerebellar arteries are patent. Posterior communicating arteries arepatent. No aneurysm. No hemodynamically significant stenosis or arterial occlusion. The superior sagittal sinus, transverse sinuses, sigmoid sinuses, straight sinus are patent. The deep cerebral veins are patent. The major cortical veins are patent. There is no abnormal brain parenchymal enhancement. Impression: CT head: 1. No acute intracranial abnormality. CT angiogram head: 1. No aneurysm or hemodynamically significant stenosis within the head. CT angiogram neck: 1. No dissection or hemodynamically significant stenosis within the neck. Workstation ID: [id number] documented in this [id number] Instructions* Patient Instructions* Kenzie Bowen APRN.CNP - 08/11/2023 9:43 AM EDT Start Paxil 10 mg daily May use Hydroxyzine 25 mg every 6 hours as needed for increased anxiety. May try Trazodone 50 mg, 1/2-1 tablet 30 minutes prior to sleep. Stay well hydrated. Recommend establishing care with counseling May consider acupuncture, Dr. Luo in [place]. Follow up in 1 month, may be virtual/telephone Due for wellness exam documented in this [facility] History of Present illness Narrative* Kenzie Bowen APRN.CATERING ADMINISTRATIVE ASSISTANT - 08/11/2023 9:20 AM EDT This is a 28 year old female who presents today with: Patient presents with: Acute Visit: Need new Anxiety med HISTORY OF PRESENT ILLNESS: Angelita Marley is a 28 year old female. Patient presents with: Acute Visit: Need new Anxiety med Here in the office to discuss depression/anxiety. Was taking Paxil and BuSpar. Refers that she stopped the Paxil in September 2022, was feeling well and decided to stop it. Was seeing Dr. Cash in [place], was placed on Lexapro in October, stopped in March. Refers that the medication made her dizzy and nauseous. Has had increased irritability, anxious, over thinking, difficulty with concentrating, and panic attacks. Getting 1 panic attack weekly. Has seen counseling in the past. Denies any increased sadness or SI/HI. 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 Has been trying to walk to help with stress. Difficulty falling and staying asleep. Getting about 4 hours of sleep per night. Has tried benadryl and tylenol PM. Has tried melatonin, is helpful to fall asleep but will wake up. Refers that storms increase her anxiety. Will have panic attacks during storms. PAST MEDICAL HISTORY: PAST MEDICAL HISTORY Diagnosis Date anxiety Asthma sports induced. No attacks since age 16 depression PAST SURGICAL HISTORY Procedure Laterality Date INSERTION OF IUD 07/15/2020 Mirena PAST SURGICAL HISTORY OF wisdom teeth and root canal ALLERGIES Amoxicillin and Seasonal Allergies MEDICATIONS Current Outpatient Medications Medication Sig diphenhydramine HCl (BENADRYL ORAL) Take by mouth. Etonogestrel-Ethinyl Estradiol (NUVARING) 0.12-0.015 mg/24 hr vaginal ring Use 1 Each vaginally as directed. INSERT ONE(1) RING VAGINALLY AND LEAVE IN PLACE FOR THREE WEEKS, THEN REMOVE FOR 1 WEEK. PARoxetine (PAXIL) 10 mg tablet TAKE 1 TABLET BY MOUTH EVERY DAY (Patient not taking: Reported on 01/29/2022) busPIRone (BUSPAR) 10 mg tablet Take 10 mg by mouth once daily. (Patient not taking: Reported on 01/29/2022) No current facility-administered medications for this visit. FAMILY HISTORY Problem Relation Age of Onset Asthma Mother other (Other tachycardia) Mother other (Other, hernia surgery) Father other (Other irregular heart rate) Father No Known Problems Sister No Known Problems Brother Cancer Maternal Grandmother skin cancer No Known Problems Maternal Grandfather Heart Paternal Grandmother other (benign tumor of ear) Paternal Grandmother No Known Problems Paternal Grandfather Asthma Brother Asthma Sister No Known Problems Son Social History Tobacco Use Smoking status: Never Smokeless tobacco: Never Vaping Use Vaping Use: Never used Substance Use Topics Alcohol use: Not Currently Comment: occasionally but not while Drug use: No REVIEW OF SYSTEMS GENERAL: No weight loss, malaise or fevers/chills HEENT: Negative for frequent or significant headaches, No changes in hearing or vision. NECK: Negative for lumps, goiter, pain and significant neck swelling RESPIRATORY: Negative for cough, hemoptysis, wheezing, dyspnea or shortness of breath CARDIOVASCULAR: Negative for chest pain, leg swelling, orthopnea, or palpitations GI: No nausea, vomiting, or diarrhea/constipation. No hematochezia/melena. No heartburn or reflux symptoms. : No history of dysuria, frequency or incontinence MUSCULOSKELETAL: Negative for joint pain or swelling. SKIN: Negative for lesions, rash, and itching ENDOCRINE: Negative for cold or heat intolerance, polyuria, polydipsia and goiter NEURO: No history of headaches, syncope, paralysis, seizures or tremors MOOD: Anxiety, difficulty sleeping EXAM: BP 110/78 Pulse 84 Resp 16 Wt 72.6 kg (160 lb) LMP 01/01/2021 (Approximate) SpO2 98% BMI 29.26 kg/m PHYSICAL EXAM: General Appearance: Well appearing, alert, in no acute distress, well-hydrated, well nourished. Skin: Skin color, texture, turgor normal, no suspicious rashes or lesions. Head: Normocephalic, no masses, lesions, tenderness or abnormalities. Eyes: Anicteric sclera. Extraocular movements are intact. Lungs: Lungs clear to auscultation. No wheezing, rhonchi, rales. Heart: RRR without murmur, gallop, or rubs. No ectopy. Extremities: No deformities, edema, skin discoloration, clubbing or cyanosis. Good capillary refill. Peripheral Pulses: Normal, Capillary refill <2secs, strong peripheral pulses, Pulses palpable. Neurologic: Gait normal. Sensation grossly intact. ASSESSMENT/PLAN: 1. CARO (generalized anxiety disorder) - ICD9: 300.02, ICD10: F41.1 (primary diagnosis) - Start Paxil 10 mg daily. - May use hydroxyzine as needed for increased anxiety. - Recommend establishing care with a counselor. - Follow-up in 1 month. - PAROXETINE 10 MG TABLET - HYDROXYZINE HCL 25 MG TABLET 2. Difficulty sleeping - ICD9: 780.50, ICD10: G47.9 - May use trazodone 1/2 to 1 tablet prior to bed to help with sleep - Medication instructions and education provided. - TRAZODONE 50 MG TABLET Follow-up in 1 month or sooner as needed. Discussed treatment plan and patient voices understanding. Patient's questions answered appropriately. Medications and potential side effects were discussed and patient voices understanding. Kenzie Bowen APRN.NOMI This note was partially generated using [employer] voice recognition system. Note was reviewed for accuracy. There may be minor misspellings or grammar miscues with [employer] voice recognition. [facility] History of Present illness Narrative* Gio Richardson DPM - 05/05/2023 8:45 AM EST Patient: Angelita Marley Date of : 1995 (27 y.o.) PCP: Bri Sánchez MD Procedures ASSESSMENT/PLAN: Angelita Marley 27 y.o. female with history of status post heel spur resection of the right foot with some postoperative scar tissue. Plan: Patient was advised on using a water bottle to massage the scar as well as using lotion with vitamin E twice a day. Patient was counseled she can return back to full duty but may need to take breaks. I offered physical therapy but she wants to try for the next 6 weeks. Reappoint next month. Assessment & plan notes cannot be loaded without a specified hospital service. SUBJECTIVE: History Since Last Visit: Patient 27-year-old female seen at the office status post heel spur resection x 2 months. Patient relates is slowly getting better she can tell the spur is been removed. Patient takes Mobic once or twice a week. 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 Review of Systems: OBJECTIVE: Physical Examination: Integument-the scar on the medial side of the right heel has some hypertrophy at the most distal aspect. The proximal half appears to be softer and doing better. There is no redness or warmth noted on the right heel. Neuro-no pain over the Baxters nerve or posterior tibial nerve right foot. Musculoskeletal-patient has no pain of the medial or central bands of plantar fascial ligament on the right heel. Patient has some scar tissue at the most proximal medial calcaneal tubercle. Vascular-DP PT pulses are palpable on the right foot. BP 109/75 (BP Location: Right arm, Patient Position: Sitting, BP Cuff Size: Adult) Pulse 81 Temp 98.5 F (36.9 C) (Infrared) Laboratory and Additional Data Reviewed: Reviewed:[id number]} CT Angiogram Head Neck Narrative: EXAMINATION: CT ANGIOGRAM HEAD NECK HISTORY: ORDERING SYSTEM PROVIDED HISTORY: Severe new onset headache, TECHNOLOGIST PROVIDED HISTORY: Illness/Other Reason for exam: severe new onset headache Encounter Type: Initial Additional signs and symptoms: nausea, light sensitivity ORDERING SYSTEM PROVIDED DIAGNOSIS CODES: COMPARISON: None TECHNIQUE: Noncontrast CT of the head was obtained with sagittal and coronal reformats. Subsequent CT angiogram was obtained through the neck and head following the administration of intravenous contrast material. MIP (maximum intensity projection) images were performed and/or 3D reconstructions on an independent workstation were performed. Carotid stenosis is reported according to NASCET criteria. Dose reduction techniques were achieved by using automated exposure control and/or adjustment of mAand/or kV according to patient size and/or use of iterative reconstruction technique. CONTRAST: IOPAMIDOL 370 MG IODINE/ML (76 %) INTRAVENOUS SOLUTION - 75 mL, FINDINGS: Noncontrast CT head: The ventricles, sulci, and remaining CSF containing spaces maintain age- appropriate volume and symmetry. No herniation or hydrocephalus. The moncada matter/white matter differentiation is maintained throughout. No CT evidence of contemporary infarction. No acute intracranial hemorrhage or parenchymal mass. The calvarium and skull base are intact. The pneumatized portions of the skull are clear. CT angiogram of the neck: The thoracic aorta arch is normal in caliber. Three-vessel aortic arch branching pattern. The common carotid arteries, and internal carotid arteries are patent. The right vertebral artery is dominant.. The bilateral vertebral arteries are patent. No dissection, occlusion, or hemodynamically significant stenosis. No lymphadenopathy. The right parotid gland is unremarkable. Small intraparotid lymph nodes noted on left. The submandibular glands are normal. The thyroid gland is unremarkable. The airway is patent. No focal fluid collection within the neck. No fracture. CT angiogram of the head: The internal carotid arteries, middle cerebral arteries, anterior communicating artery, and anterior cerebral arteries are patent. The bilateral vertebral arteries, basilar artery, posterior cerebral arteries, posterior inferior cerebellar arteries and superior cerebellar arteries are patent. Posterior communicating arteries arepatent. No aneurysm. No hemodynamically significant stenosis or arterial occlusion. The superior sagittal sinus, transverse sinuses, sigmoid sinuses, straight sinus are patent. The deep cerebral veins are patent. The major cortical veins are patent. There is no abnormal brain parenchymal enhancement. Impression: CT head: 1. No acute intracranial abnormality. CT angiogram head: 1. No aneurysm or hemodynamically significant stenosis within the head. CT angiogram neck: 1. No dissection or hemodynamically significant stenosis within the neck. Workstation ID: [id number] documented in this [id number] History of Present illness Narrative* Lennox Arriola Jr., DPM - 03/31/2023 1:29 PM EST Patient called in today complaining of some goup to her incision site. States that it started today. I called in po doxycyline 100 mg bid for 10 days. -start topical betadine ointment and bandaid. F/u with Dr. Richardson in one week to evaluate post op site. documented in this [id number] History of Present illness Narrative* Gio Richardson DPM - 03/25/2023 2:41 PM EST Patient: Angelita Marley Date of : 1995 (27 y.o.) PCP: Bri Sánchez MD Procedures ASSESSMENT/PLAN: Angelita Marley 27 y.o. female with history of status post heel spur resection of the right foot x 2 weeks doing well. Plan: I remove the stitches from the right heel. Patient was given range of motion exercises to do daily. I told patient she can start getting it wet on Tuesday and try some limited weightbearing withcrutches. Patient to reappoint 2 weeks. Assessment & plan notes cannot be loaded without a specified hospital service. SUBJECTIVE: History Since Last Visit: Patient is a 27-year-old female status post plantar fasciotomy and heel spur resection of the right foot x 2 weeks. Patient is doing well without complaint. Patient been using a knee scooter and a cam walker boot. Review of Systems: OBJECTIVE: Physical Examination: Integument-the medial heel incision was clean dry and intact. No redness no drainage no odor no signs infection noted. Neuro-intact right foot Musculoskeletal-minimal swelling and decreased pain of the right heel. No pain behind the right calf or knee. Vascular-DP PT pulses are palpable on the right foot. BP 125/87 (BP Location: Right arm, Patient Position: Sitting, BP Cuff Size: Adult) Pulse 69 Temp 98.4 F (36.9 C) (Infrared) Laboratory and Additional Data Reviewed: Reviewed:[id number]} XR Foot Right 3+ Views (Standard) Xray 3 views right foot - there is removal of the inferior calcaneal spur documented in this [id number] History of Present illness Narrative* Gio Richardson DPM - 03/11/2023 1:59 PM EST Patient: Angelita Marley Date of : 1995 (27 y.o.) PCP: Bri Sánchez MD Procedures ASSESSMENT/PLAN: Angelita Marley 27 y.o. female with history of status post heel spur resection on the right foot doingwell. Plan: Applied bacitracin and a bandage to the right heel. Patient is told to keep it dry clean and intact. Patient is told to wear her boot and use her knee scooter. Reappoint in 10 days to have stitches removed. Assessment & plan notes cannot be loaded without a specified hospital service. SUBJECTIVE: History Since Last Visit: Patient is a 27-year-old female status post heel spur resection on the right foot. Patient relates the heels been doing well since it had the spur removed. Patient has a newknee scooter to keep the weight off the right foot and using her cam walker boot. Review of Systems: OBJECTIVE: Physical Examination: Integument-the incision on the medial side of the right heel is clean dry and intact. No redness nodrainage no odor no signs infection noted. Neuro-intact right foot Musculoskeletal-minimal pain and swelling over the medial and plantar aspects of the right heel. Vascular-DP PT pulse are palpable right foot. BP 121/83 (BP Location: Right arm, Patient Position: Sitting, BP Cuff Size: Adult) Pulse 67 Temp 98.4 F (36.9 C) (Temporal) LMP 01/11/2023 (Exact Date) Laboratory and Additional Data Reviewed: Reviewed:[id number]} XR Foot Right 3+ Views (Standard) Xray 3 views right foot - there is removal of the inferior calcaneal spur documented in this [id number] History of Present illness Narrative* Kuldeep Keene, PT - 02/21/2023 7:00 AM EDT [facility] DAILY TREATMENT NOTE Today's Date 02/21/2023 Patient Name: Angelita Marley Date of : 1995 Current Visit #: 2 Authorized Visits: 30 Case Name: Right Foot Pain History: Pre-Treatment Pain Scale: 3 Symptoms: about the same Functional Diagnosis: 1. Plantar fasciitis, right 2. Heel spur, right Clinical Information: Subjective: Pt denies change in med hx and reports no new complaints. Objective Treatments: Physical Therapy Exercise Log - 02/21/23 0705 OTHER Precautions/Contraindications Supervising PT: Nirav Notes Visit 1: 7:04 - 7:48 Therapeutic Exercise (25026) Parameters gastroc and soleus stretches on wedge 3x20 Intervention plantar fascia stretch 3x20 Parameters towel scrunches x1 min Intervention towel in/eversion x1 min Parameters GTB inversion, eversion and DF x20 each Intervention standing BAPS 4-way L3 x10 each Parameters standing DF x15 Parameters Access Code: [email or web address] URL: [email or web address] Date: 02/17/2023 Prepared by: Kuldeep Keene Exercises - Standing Gastroc Stretch - 2 x daily - 3 reps - 20 seconds hold - Standing Soleus Stretch - 2 x daily - 3 reps - 20 seconds hold - Long Sitting Plantar Fascia Stretch with Towel - 2 x daily - 3 reps - 20 seconds hold - Towel Scrunches - 1-2 x daily - 20 reps - Ankle Inversion Eversion Towel Slide - 1-2 x daily - 10 reps - Seated Ankle Eversion with Resistance - 1-2 x daily - 10-15 reps - Seated Ankle Inversion with Resistance - 1-2 x daily - 10-15 reps - Self-Resisted AnkleDorsiflexion - 1-2 x daily - 10-15 reps Manual Therapy (77527) Intervention STM/plantar fascia release x5 misn Ultrasound Intervention inferior heel Parameter 3MHz, 1.2 W/cm2 x8 mins PT Treatment Times Therex Total Time 31 Manual Therapy Total Time 5 Ultrasound Total Time 8 Direct Treatment Time 44 Total Treatment Time 44 Goals: Physical Therapy Ortho Goals: MOBILITY: Patient will be able to ambulate for 1 hour in community without difficulty in 4 weeks. MOBILITY: Patient will be able to ambulate on uneven surfaces without difficulty in 4 weeks. MOBILITY: Patient will be able to ascend/descend stairs without pain or difficulty in 4 weeks. IMPAIRMENT: Improve pain from 10/10 to <3/10 during prolonged standing, walking and negotiating uneven surfaces in 4 weeks IMPAIRMENT: Improve MMT of Right Ankle Inversion from 4/5 to at least 4+/5 in 4 weeks OTHER: Patient will increase FOTO score from 46 to at least 60 to show MDC/MCII and expected functional outcome in 4 weeks. OTHER: Patient will be able to properly demonstrate independence with HEP in 1 week. Patient Education: HEP Adherence and Diagnosis and recovery specific education with patient verbalized understanding. Post-Treatment Pain Scale: 2 Assessment: Patient had an expected response to treatment. Skilled Intervention demonstrated by modifications of treatment per exercise log including increased volume and modalities as indicated and safety interventions per exercise log. Progress towards goals as expected. Plan for Next Visit: Treatment Visit with focus on pain control Kuldeep Keene PT State License, [id number] documented in this [id number] History of Present illness Narrative* Gio Richardson, DPM - 02/10/2023 12:22 PM EDT Patient: Angelita Marley Date of : 1995 (27 y.o.) PCP: Bri Sánchez MD Procedures ASSESSMENT/PLAN: Angelita Marley 27 y.o. female with history of plantar fasciitis heel spur syndrome of the right foot. Plan: I prescribed physical therapy 3 times a week for 3 weeks. I also prescribed and dispensed 1 pair of heel cushions to wear in her shoes. Patient was told to continue with stretching of the plantar fascia and icing it down at the end of the day. Reappoint in 1 month Assessment & plan notes cannot be loaded without a specified hospital service. SUBJECTIVE: History Since Last Visit: Patient a 27-year-old female follows up for plantar fasciitis and heel spur syndrome of the right foot . Patient received a cortisone shot last month which gave her about 50% improvement. Patient still has pain on the bottom of the heel. She states the [place] strap did not help her symptoms but aggravated her foot. Review of Systems: OBJECTIVE: Physical Examination: Integument-skin is warm dry and supple on the right foot. Neuro-no pain over the Baxters nerve or posterior tibial nerve the right foot. Musculoskeletal-patient has increased medial longitudinal arch of the right foot. Patient has pain to palpation of the medial central bands of plantar fascia on the right heel. Patient has a very tight plantar fascia of the right foot. Vascular-DP PT pulses are palpable on the right foot. BP 113/74 (BP Location: Right arm, Patient Position: Sitting, BP Cuff Size: Adult) Pulse 64 Temp 98.3 F (36.8 C) (Infrared) LMP 01/11/2023 (Exact Date) Laboratory and Additional Data Reviewed: Reviewed:[id number]} XR Calcaneus Right 2+ Views (Standard) Xray 2 views right - There is inferior calcaneal spur . No tumor or stress fracture documented in this [id number] Telephone encounter Note* Telephone Encounter - Addis Cross LPN - 01/28/2023 8:31 AM EDT Last visit 05/18/22 Next visit not scheduled. [id number] Miscellaneous Notes* Telephone Encounter - Addis Cross LPN - 01/28/2023 8:31 AM EDT Last visit 05/18/22 Next visit not scheduled. documented in this [id number] History of Present illness Narrative* Gio Richardson DPM - 01/13/2023 5:09 PM EDT Patient Name: Angelita Marley MR #: [id number] : 1995 Gender: female. Date of Consultation: 01/13/2023. Author: FERNANDA Gomez Physicians: Bri Sánchez MD (Family); No ref. provider found (Referring) History of Present Illness: Angelita Marley is a 27 y.o. female who resents with right heel pain hasbeen bothering her for over the last 3 months. Patient relates the first few steps in the morning not too bad but get worse as the day rolls on. 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 Patient has tried stretching, icing and supportive shoes without improvement. Assessment and Plan: 1. 1. Plantar fasciitis 2. Plantar fasciitis, right 3. Heel spur, right Plan: Patient was seen and evaluated. I discussed the findings with the patient. Patient was given opportunity to ask questions. Patient elects to have the following treatment as follows: Patient was given instructions on proper stretching of the plantar fascia. I prescribed dispensed 1 Lb strap for the right foot to assist in ambulation. I prescribed meloxicam to take daily. I have asked patient to ice the foot down at the end of the day. I injected the right heel with 1 cc of Kenalog and 1 cc of 0.5% Marcaine plain. Reappoint in 1 month Lower Extremity: Integumentary: Skin is warm dry and supple bilateral feet. Musculoskeletal: Patient has pain on palpation of the medial and central bands of plantar fascia ligament on the right heel. Patient has no pain with [id number] squeeze test of either heel. Neurological: No pain over the Baxters nerve or posterior tibial nerves of right foot. Vascular: DP PT pulses are palpable right foot. * No LDAs found * BP 126/84 (BP Location: Right arm, Patient Position: Sitting, BP Cuff Size: Adult) Pulse 76 Temp 99 F (37.2 C) (Infrared) LMP 01/11/2023 Allergy Information: I have reviewed the patient's allergies. Amoxicillin Home Medications: Current Outpatient Medications Medication Sig Dispense Refill acetaminophen (TYLENOL) 500 MG tablet Take 1 (one) tablet (500 mg total) by mouth every 6 (six) hours as needed for pain . busPIRone (BUSPAR) 10 MG tablet Take 1 (one) tablet (10 mg total) by mouth 3 (three) times a day . 90 tablet 11 escitalopram oxalate (LEXAPRO) 10 MG tablet Take 1 (one) tablet (10 mg total) by mouth daily . 30 tablet 11 ibuprofen (ADVIL,MOTRIN) 800 MG tablet Take 1 (one) tablet (800 mg total) by mouth every 6 (six) hours as needed for pain . meloxicam (MOBIC) 15 MG tablet Take 1 (one) tablet (15 mg total) by mouth daily . 30 tablet 1 No current facility-administered medications for this visit. Review of Systems: The following system(s) were reviewed and pertinent findings noted: Pertinent positives and negatives as mentioned above, otherwise full review of systems is negative unless mentioned below: Patient currently denies Nausea/Vomiting/Fever/Chills/Shortness of Breath/Chest Pain. Medical History: Past Medical History: Diagnosis Date Anxiety Asthma Depression . Surgical History: History reviewed. No pertinent surgical history.. Social History: Social History Socioeconomic History Marital status: Tobacco Use Smoking status: Never Smokeless tobacco: Never Vaping Use Vaping Use: Never used Substance and Sexual Activity Alcohol use: Not Currently Comment: socially Drug use: Never Sexual activity: Yes Partners: Male control/protection: I.U.D. Family History: Family History Problem Relation Age of Onset Heart disease Mother Arrhythmia Mother Electronically signed by the above physician 01/13/23 documented in this [id number] Instructions* Patient Instructions* Yvette Rainey, TECHNOLOGIST - 01/13/2023 3:46 PM EDT Images from the original note were not included. ABOUT YOUR INJECTION: You have been given an injection of a combination of local anesthetics (Bupivicaine HCL/ Marcaine and Lidocaine) and a steroid solution (Methylprednisolone acetate/ Depo-Medrol). The steroid solutionis designed to decrease the inflammation in the tissues after a couple of days, while the local anesthesia shouldshould give you some measure of immediate pain relief. The combination of medications is used for diagnostic purposes. You may expect the area to be numb for a period of one to several hours. However, after the numbness wears off, you will experience one of the following three sensations: You will continue to have relief of the pain you experienced prior to the injection. Your pre-existing pain will return, and no change will take place. You may, in fact, have more pain than you did prior to the injection, after the local anesthetic wears off. If you have more pain, DON'T PANIC! This pain is an irritation from the cortisone preparation whichwill resolve as soon as the steroids are absorbed into the tissue. Unfortunately, there is no way for us to predict how quickly or slowly your body will absorb the steroid. Everyone's body absorbs medication at a different rate. On the average, however, most people will get good relief in 48-72 hours. For relief, use ice comresses, and some sort of anti-inflammatory medication such as: Aspirin, Motrin, Nuprin or Advil to relieve the pain. Tylenol, however, is not and anti- inflammatory medication and may be less effective. You should apply ice to the area for approximately 15-20 minutes at a time. You may repeat this as often as necessary. If the increased pain, swelling, or redness persists for more than 5 days after the injection, or if you have any questions, please don't hesitate to call us. This injection may raise your blood sugar if you have diabetes. You must monitor your blood sugar 4times a day and adjust your insulin as needed. If you do not take insulin and if yout blood sugar elevates to over 250, you must contact your primary care doctor or go to the emergency room. Please do not hesitate to call us with any questions or concerns. PLANTAR FASCIITIS: Definition: The plantar fascia is a ligament, like a band running from your heel to the ball of your foot. Thisband pulls on the heel bone, raising the arch of your foot as it pushes off the ground. However, ifyour foot moves incorrectly, the plantar fascia may become strained. The fascia may swell and its tiny fibers may begin to fray; causing plantar fasciitis. Symptoms: The bottom of your foot may hurt when you stand, especially first thing in the morning. Pain uaually occurs on the inside of the foot, near where your heel and arch meet. Pain may lessen after a few steps, but usually comes back after rest or prolonged movement. Treatment: Stretching Icing (A bag of frozen peas/ veggies applied to the back of the heel) Good supportive shoes (New Balance or Asics) with a heel lift or open back shoes Refrain from exercising (walking, treadmill, high impact aerobics, etc.) until your pain resolves DO NOT GO BAREFOOT, even around the house. Overview The driving force/ cause of plantar fasciitis (heel pain) is often a tight Achilles tendon or heel cord. The ability to run/ walk becomes altered, causing inflammation, which leads to pain. Fortunately, heel pain can be treated successfully in most cases with the following steps. Stretching Most important step stretch, stretch, stretch Stretching should consist of: 5-6 sets of 15-20 second stretches (each leg) Stretch Positions Injured foot against wall/ object (image 1) Injured foot behind your body (image 2) Types of stretches First stretch should be with the knee fully extended Second stretch, the knee should be bent slightly Sit in a chair Extend/ lock knee and pull foot back until you feel tension in your calf Hold that position for 20 seconds, then relax Repeat process for 15 minutes Do this stretching 3 times a day Do this stretch before you even get out of bed You can use household items to assist with the stretching (towel, elastic band, belt, rope, etc.) Ice Place on bottom of injured foot Apply 20 minutes on, 20 minutes off, REPEAT Examples: Frozen vegetables, frozen water bottle Anti- inflammatories NSAIDS/ Steroids are helpful in treating plantar fasciitis, recommended Anti- inflammatory dose is 800mg Ibuprofen, twice daily. Discuss with your physician prior to starting medication Shoe Modification Good supportive tennis shoes are very important for recovery (Ex: Asics, Valentin, Saucony, New Balance) Avoid flip- flops or barefoot walking Shoes older than >12 months should be replaced Orthotics/ Arch Supports Depending on your foot type (high arch, flat foot) you may need extra support Discuss with your physician best recommended treatment plan Exercise Daily exercise is important, but should be modified during treatment plan Limit/ Alter total mileage when running/ walking Incorporate low-impact activities such as biking/ swimming/ weights * Attachments The following attachments cannot be sent through Care Everywhere. * Plantar Fasciitis ([place]) documented in this [id number] Telephone encounter Note* Telephone Encounter - Addis Cross LPN - 12/30/2022 7:31 AM EDT Last visit 05/18/22. Next visit not scheduled. Last script [id number] Miscellaneous Notes* Telephone Encounter - Addis Cross LPN - 12/30/2022 7:31 AM EDT Last visit 05/18/22. Next visit not scheduled. Last script documented in this [id number] Evaluation + Plan note* Assessment & Plan Note - Bri Sánchez MD - 05/20/2022 10:16 AM ESTAssociated Problem(s): Anxiety Pt will restart buspar and lexapro over the next few weeks [id number] Miscellaneous Notes* Assessment & Plan Note - Bri Sánchez MD - 05/20/2022 10:16 AM ESTAssociated Problem(s): Anxiety Pt will restart buspar and lexapro over the next few weeks * Assessment & Plan Note - Bri Sánchez MD - 05/20/2022 10:15 AM ESTAssociated Problem(s): Dizziness Will get updated echo Consider event monitor testing as pt has had episodes of palpitations in the past * Assessment & Plan Note - Bri Sánchez MD - 05/20/2022 9:58 AM ESTAssociated Problem(s): Chest pain Will get xray and echo--likely costochondritis due to reproducibility -pt has discussed what I believe to be PVCs/sinus tachycardia in the past -though I do not think her chest pain is cardiac in origin, it is interesting to note that she feels quite dizzy after her arms are lowered documented in this [id number] Evaluation + Plan note* Assessment & Plan Note - Bri Sánchez MD - 05/20/2022 10:15 AM ESTAssociated Problem(s): Dizziness Will get updated echo Consider event monitor testing as pt has had episodes of palpitations in the past [id number] Evaluation + Plan note* Assessment & Plan Note - Bri Sánchez MD - 05/20/2022 9:58 AM ESTAssociated Problem(s): Chest pain Will get xray and echo--likely costochondritis due to reproducibility -pt has discussed what I believe to be PVCs/sinus tachycardia in the past -though I do not think her chest pain is cardiac in origin, it is interesting to note that she feels quite dizzy after her arms are lowered [id number] History of Present illness Narrative* Bri Sánchez MD - 05/18/2022 5:47 PM EST Images from the original note were not included. Assessment Assessment/Plan: Problem List Anxiety Pt will restart buspar and lexapro over the next few weeks Dizziness - Primary Will get updated echo Consider event monitor testing as pt has had episodes of palpitations in the past Relevant Orders Echocardiogram complete XR Chest AP/PA and LAT (Completed) Chest pain Will get xray and echo--likely costochondritis due to reproducibility -pt has discussed what I believe to be PVCs/sinus tachycardia in the past -though I do not think her chest pain is cardiac in origin, it is interesting to note that she feels quite dizzy after her arms are lowered No follow-ups on file. For any new medications prescribed today, patient was educated about indications for the medication, how to take the medication and potential side effects of the medications. Bri Sánchez MD [facility] [address] [facility] [address] [facility] [address] Dept: [phone] Subjective Chief Complaint Patient presents with Chest Pain X 3 weeks, pt reports that anything she has to do where she has to have hands above head hurts. HPI Angelita Marley is a 26 y.o. female with a past medical history of anxiety presenting to discuss chest pain This is a new complaint. The current episode started in the past 3 week(s). The problem has is unchanged. States after lifting her arms above her head for about 10-15 seconds, when she brings her arms down, she has chest pain. States it feels like a bruised chest. Sometimes it does feel like it takes her breath away. She also feels dizzy at times due to this chest pain. She has not had any syncopal episodes and denies palpitations, nausea, vomiting, cough, no vision changes. Pain does not radiate down her arms. The soreness will last a few minutes and then subside. She denies any numbness/tingling associated with this. She does not need to take any medications for this. At work, she is constantly reaching over her head to grab items and that is when she notices it themost- when she lowers her arms down. We discussed possible pvcs in the past as she had palpitations/lightheadedness which was very infrequent and was manageable by patient- however she says this dizziness feels different. Anxiety and depression -took buspar and lexapro for a few days and discontinued as it caused nausea. She then had stomach flu and has not tried to restart this. She would like to give this another try. All pertinent positives and negatives are documented in ROS Patient's medications, allergies, past medical history, surgical history history, family history, social history were reviewed. Spent more than 20 minutes with patient, coordinating patient care, including reviewing charts and counseling patient. Past Medical History: Diagnosis Date Anxiety Asthma Depression History reviewed. No pertinent surgical history. Family History Problem Relation Age of Onset Heart disease Mother Arrhythmia Mother Social History Tobacco Use Smoking status: Never Smokeless tobacco: Never Vaping Use Vaping Use: Never used Substance Use Topics Alcohol use: Yes Comment: socially Drug use: Never Allergies Allergen Reactions Amoxicillin Unknown When she was a child Patient's Medications New Prescriptions No medications on file Previous Medications BUSPIRONE (BUSPAR) 10 MG TABLET Take 1 (one) tablet (10 mg total) by mouth 3 (three) times a day . ESCITALOPRAM OXALATE (LEXAPRO) 10 MG TABLET Take 1 (one) tablet (10 mg total) by mouth daily . Modified Medications No medications on file Discontinued Medications No medications on file Objective Vitals: 05/18/22 1728 BP: 122/80 BP Location: Right arm Patient Position: Sitting BP Cuff Size: Adult Pulse: 76 Resp: 16 Temp: 98.3 F (36.8 C) TempSrc: Infrared SpO2: 97% Weight: 76.1 kg (167 lb 11.2 oz) Height: 5' 2 Estimated body mass index is 30.67 kg/m as calculated from the following: Height as of this encounter: 5' 2. Weight as of this encounter: 76.1 kg (167 lb 11.2 oz). Physical Exam Vitals and nursing note reviewed. Constitutional: Appearance: Normal appearance. She is obese. HENT: Head: Normocephalic and atraumatic. Right Ear: No drainage or tenderness. No middle ear effusion. Left Ear: No drainage or tenderness. No middle ear effusion. Mouth/Throat: Mouth: Mucous membranes are moist. Eyes: Extraocular Movements: Extraocular movements intact. Right eye: Normal extraocular motion. Left eye: No nystagmus. Conjunctiva/sclera: Conjunctivae normal. Cardiovascular: Rate and Rhythm: Normal rate and regular rhythm. No extrasystoles are present. Pulses: Carotid pulses are 2+ on the right side and 2+ on the left side. Radial pulses are 2+ on the right side and 2+ on the left side. Pulmonary: Effort: Pulmonary effort is normal. Breath sounds: Normal breath sounds. Chest: Chest wall: Tenderness present. Abdominal: General: Abdomen is flat. Musculoskeletal: General: No swelling. Normal range of motion. Cervical back: Normal range of motion. Skin: General: Skin is warm. Findings: No bruising or rash. Neurological: General: No focal deficit present. Mental Status: She is alert and oriented to person, place, and time. Mental status is at baseline. Cranial Nerves: No dysarthria. Sensory: No sensory deficit. Motor: No weakness or tremor. Coordination: Coordination is intact. Deep Tendon Reflexes: Reflexes are normal and symmetric. Reflexes normal. Reflex Scores: Bicep reflexes are 2+ on the right side and 2+ on the left side. Patellar reflexes are 2+ on the right side and 2+ on the left side. Achilles reflexes are 2+ on the right side and 2+ on the left side. Psychiatric: Attention and Perception: Attention and perception normal. Mood and Affect: Mood normal. Speech: Speech normal. Behavior: Behavior normal. Thought Content: Thought content normal. Cognition and Memory: Cognition and memory normal. Judgment: Judgment normal. PHQ9: CARO-7 Tobacco Counseling: Counseling given: Not Answered documented in this [id number] Evaluation + Plan note* Assessment & Plan Note - Bri Sánchez MD - 04/05/2022 5:48 PM ESTAssociated Problem(s): Anxiety Will start buspar 10mg bid again Start lexapro 10mg paxil previously was ineffective Social work referral provided Counseling resources provided [id number] Instructions* Patient Instructions* Bri Sánchez MD - 04/05/2022 5:48 PM EST Problem List Items Addressed This Visit Other Anxiety - Primary Will start buspar 10mg bid again Start lexapro 10mg paxil previously was ineffective Social work referral provided Counseling resources provided Relevant Medications busPIRone (BUSPAR) 10 MG tablet Other Relevant Orders Ambulatory referral to Social Work If any referrals were placed at the time of your visit please allow 2 weeks for processing. If you haven't heard from anyone within 2 weeks please contact my office so we can look into the status of your referral. If you were given any labs today please ensure they are completed according to the directions given. Most normal results will be available through [facility] however if abnormal, you will be notified. Please allow 48-72 hours for review, and let you know what steps, if any, are needed next. If you haven't heard from us after that please call to inquire. If labs were ordered to be done PRIOR to your next visit we will discuss the results at the time ofyour office visit. If any procedures or imaging studies were ordered that must be prior authorized please give us 2 weeks to get them approved. Once approved someone should call you to schedule them or give you a date and time that they were scheduled for. If you haven't heard anything within 2 weeks of the office visit please call the office so we can look into their status. Customer Service/Billing Questions: [phone] [facility] Assistance: [phone] or [phone] Financial Assistance: [phone] or [phone] documented in this [id number] Miscellaneous Notes* Assessment & Plan Note - Bri Sánchez MD - 04/05/2022 5:48 PM ESTAssociated Problem(s): Anxiety Will start buspar 10mg bid again Start lexapro 10mg paxil previously was ineffective Social work referral provided Counseling resources provided documented in this [id number] History of Present illness Narrative* Bri Sánchez MD - 04/05/2022 9:43 AM EST Assessment Assessment/Plan: Problem List Anxiety - Primary Will start buspar 10mg bid again Start lexapro 10mg paxil previously was ineffective Social work referral provided Counseling resources provided Relevant Medications busPIRone (BUSPAR) 10 MG tablet Other Relevant Orders Ambulatory referral to Social Work Return in about 6 weeks (around 05/17/2022) for Follow up telehealth. For any new medications prescribed today, patient was educated about indications for the medication, how to take the medication and potential side effects of the medications. Bri Sánchez MD [facility] [address] [facility] [address] [facility] [address] Dept: [phone] Subjective Chief Complaint Patient presents with Anxiety Medication concerns, anxiety Gap Closure (Health Maintenance) There are no preventive care reminders to display for this patient. HPI Angelita Marley is a 26 y.o. female with a past medical history of anxiety presenting for follow-up of her anxiety and depression. Anxiety and depression -patient was started on BuSpar 10 mg twice daily and Paxil 10 mg. She discontinued medication 3-4 months ago. Did not feel like paxil was working. She did take buspar but felt like she didn't need to be on medication daily. Has more panic attacks/chest tightness, more anxiety, racing thoughts at night. Continues to be very irritable and agitated. Continues to have some feelings of guilt due to family life. Continues to have some stress factors-patient does work at a [employer] and states that her work is not social however family life tends to be stressful at times. She does have 2 small children and is . Although she has a good support system she feels like there is things to worry about. She denies any previous hospitalizations or panic attacks. She currently denies she denies any lightheadedness, palpitations, nausea, vomiting, headache during these episodes. She denies any suicidal or self-harm ideations or any previous attempts. -has financial difficulties. We discussed referral to social work to discuss options. Pt was amenable -open to counseling. Resources were provided All pertinent positives and negatives are documented in ROS Patient's medications, allergies, past medical history, surgical history history, family history, social history were reviewed. Spent more than 20 minutes with patient, coordinating patient care, including reviewing charts and counseling patient. Past Medical History: Diagnosis Date Anxiety Asthma Depression History reviewed. No pertinent surgical history. Family History Problem Relation Age of Onset Heart disease Mother Arrhythmia Mother Social History Tobacco Use Smoking status: Never Smokeless tobacco: Never Vaping Use Vaping Use: Never used Substance Use Topics Alcohol use: Yes Comment: socially Drug use: Never Allergies Allergen Reactions Amoxicillin Unknown When she was a child Patient's Medications New Prescriptions ESCITALOPRAM OXALATE (LEXAPRO) 10 MG TABLET Take 1 (one) tablet (10 mg total) by mouth daily . Previous Medications No medications on file Modified Medications Modified Medication Previous Medication BUSPIRONE (BUSPAR) 10 MG TABLET busPIRone (BUSPAR) 10 MG tablet Take 1 (one) tablet (10 mg total) by mouth 3 (three) times a day . Take 1 (one) tablet (10 mg total) by mouth 3 (three) times a day . Discontinued Medications MECLIZINE (ANTIVERT) 12.5 MG TABLET Take 1 (one) tablet (12.5 mg total) by mouth 3 (three) times a day as needed for nausea . PAROXETINE (PAXIL) 10 MG TABLET Objective Vitals: 04/05/22 0859 BP: 118/81 BP Location: Right arm Patient Position: Sitting BP Cuff Size: Adult Pulse: 73 Resp: 16 Temp: 98.4 F (36.9 C) TempSrc: Temporal SpO2: 98% Weight: 78.5 kg (173 lb) Height: 5' 2 Estimated body mass index is 31.64 kg/m as calculated from the following: Height as of this encounter: 5' 2. Weight as of this encounter: 78.5 kg (173 lb). Physical Exam Vitals and nursing note reviewed. Constitutional: Appearance: Normal appearance. She is obese. HENT: Head: Normocephalic and atraumatic. Right Ear: No drainage or tenderness. No middle ear effusion. Left Ear: No drainage or tenderness. No middle ear effusion. Mouth/Throat: Mouth: Mucous membranes are moist. Eyes: Extraocular Movements: Extraocular movements intact. Right eye: Normal extraocular motion. Left eye: No nystagmus. Conjunctiva/sclera: Conjunctivae normal. Pupils: Pupils are equal, round, and reactive to light. Cardiovascular: Rate and Rhythm: Normal rate and regular rhythm. Pulmonary: Effort: Pulmonary effort is normal. Breath sounds: Normal breath sounds. Abdominal: General: Abdomen is flat. Palpations: Abdomen is soft. Musculoskeletal: General: Normal range of motion. Skin: General: Skin is warm. Neurological: General: No focal deficit present. Mental Status: She is alert and oriented to person, place, and time. Mental status is at baseline. Cranial Nerves: No dysarthria. Motor: No tremor. Coordination: Coordination is intact. Deep Tendon Reflexes: Reflexes are normal and symmetric. Reflex Scores: Bicep reflexes are 2+ on the right side and 2+ on the left side. Patellar reflexes are 2+ on the right side and 2+ on the left side. Achilles reflexes are 2+ on the right side and 2+ on the left side. Psychiatric: Attention and Perception: Attention and perception normal. Mood and Affect: Mood is anxious. Speech: Speech normal. Behavior: Behavior normal. Thought Content: Thought content normal. Cognition and Memory: Cognition and memory normal. Judgment: Judgment normal. PHQ9: Over the last 2 weeks, how often have you been bothered by any of the following problems? Little interest or pleasure in doing things: Several days Feeling down, depressed, or hopeless: More than half the days PHQ-2 Total Score: 3 Trouble falling or staying asleep, or sleeping too much: Nearly every day Feeling tired or having little energy: Nearly every day Poor appetite or overeating: Nearly every day Feeling bad about yourself - or that you are a failure or have let yourself or your family down: More than half the days Trouble concentrating on things, such as reading the newspaper or watching television: Nearly everyday Moving or speaking so slowly that other people could have noticed. Or the opposite - being so fidgety or restless that you have been moving around a lot more than usual: More than half the days Thoughts that you would be better off , or of hurting yourself in some way: Not at all PHQ-9 Total Score: 19 If you checked off any problems, how difficult have these problems made it for you to do your work,take care of things at home, or get along with other people?: Somewhat difficult CARO-7 Over the last 2 weeks, how often have you been bothered by the following problems? Feeling nervous, anxious or on edge: Nearly every day Not being able to stop or control worrying: Over half the days Worrying too much about different things: Nearly every day Trouble relaxing: Nearly every day Being so restless that it is hard to sit still: Over half the days Becoming easily annoyed or irritable: Nearly every day Feeling afraid as if something awful might happen: Over half the days CARO-7 Score: (!) 18 Tobacco Counseling: Counseling given: Not Answered documented in this [id number] History of Present illness Narrative* Shine Neal MD - 01/29/2022 10:11 AM EDT Angelita presents for removal of IUD and wants to switch to another control method. UNIVERSAL PROTOCOL / SAFETY CHECKLIST Procedure to be Performed: Intrauterine Device (IUD) Removal Sign In: A Moment of CARE was completed. Personnel directly involved with the procedure wore the appropriate PPE (Personal Protective Equipment). Patient/Surrogate Stated/Verified: PATIENT VERIFIED(optional for EMERGENT procedures): Patient name, Date of , Relevant allergies, and The intended procedure Time Out Communication: Intended patient and procedure match the source documents. Consent documented and matches the intended procedure. Sign Out: SIGN OUT (optional for EMERGENT procedures): No specimen collected. All instruments, equipment, possible retained foreign bodies accounted for. Post-procedure follow-up management communicated and Plan of Care Visit completed when applicable. PROCEDURE: Speculum placed in vagina, IUD string visualized and grasped with ring forceps. ASSESSMENT/PLAN: IUD removed without difficulty, intact, and patient tolerated procedure well. Contraception plans: Nuvaring - discussed R/B/A and use Shine Neal MD [facility]22 Miscellaneous Notes* Telephone Encounter - Shine Neal MD - 01/21/2022 12:23 PM EDT Done Shine Neal MD * Telephone Encounter - Randa Reyes Ma - 01/20/2022 11:01 AM EDT Patient coming in for IUD Removal on 01/29/22. Please file order. documented in this encounterK[facility]07-20-2022 Miscellaneous Notes* Telephone Encounter - Jose F Garza APRN.CNP - 11/18/2021 9:50 AM EDT The following approved medication requests have been transmitted electronically. Pending Prescriptions Disp Refills PAROXETINE 10 MG TABLET 90 tablet 1 Sig: TAKE 1 TABLET BY MOUTH EVERY DAY UTE: Yes Jose F Garza APRN.CNP * Telephone Encounter - Rama Bower LPN - 11/18/2021 7:11 AM EDT Patient phones requesting refills as follows: Pending Prescriptions Disp Refills PAROXETINE 10 MG TABLET 90 tablet 1 Sig: TAKE 1 TABLET BY MOUTH EVERY DAY UTE: Yes DIVYA-01/26/21 Labs-04/13/21 NOV-none med filled 05/21/21 Please review and advise. Rama Bower LPN documented in this encounterK[facility]06-21-2022 Miscellaneous Notes* Telephone Encounter - Keena Espinoza LPN - 10/20/2021 9:56 AM EDT Reviewed per pt. Keena Espinoza LPN * Telephone Encounter - Keena Espinoza LPN - 10/20/2021 9:33 AM EDT Message left asking pt to call the office for results. DxNAt message also sent to pt. Keena Espinoza LPN * Telephone Encounter - Keena Espinoza LPN - 10/20/2021 9:33 AM EDT ----- Message from Jes Arteaga APRN.CNM sent at 10/20/2021 9:07 AM EDT ----- Negative results reviewed. Jes Arteaga APRN.CNM documented in this encounterK[facility]06-17-2022 Instructions* Patient Instructions* Jes Arteaga APRN.CNM - 10/16/2021 8:16 AM EDT Here are some links for wonderful Providers here in the community and surrounding areas. Do not hesitate to contact their offices, many are offering virtual visits during this time. 5-179-3-FVOP2EKCG [place] Maternal Mental Health Hotline If you are in suicidal crisis, please call or text 0-031-265-TALK ( ) or visit the National Suicide Prevention Lifeline website. mchb.[facility].gov [facility] Psychology, Psychiatry, Counseling Connect with therapist/ can do virtual visits [phone] Referral to the [facility] To schedule an appointment, please call the Center for Behavior[facility] Health Appointment Line: [phone] option 1 Counsel[facility] [place] [address] [place], [place] [id number] [address] [place] [address] [facility] [address] [place] [address] [facility] [address] [place] [address] Lul Zimmerman MD [address] [place] [address] [facility] [address], [address] [place] [address] [facility] [address] [place] [address] [facility] Services [place] / [place] [phone]/ [phone] [facility] [address] [facility] [phone] [facility]ing and Mediation [place] / [place] [phone] Behavioral health services of [facility] [address] [place] [address]/ [place] [facility] [place] [phone] JARED Flor, [facility] Workshops, telehealth and at home visits. [phone] Humanistic counseling center 20 locations [place], [place], [place], [place], [place], [place], [place], [facility], [place], [place], [place], [place], [place], [place], [facility], [place], [place] ,[facility], [place], [place],[facility], [facility], [place], [facility], [facility], [place] www.Poppermost Productionsgarfield county public hospitalRoboinvest [phone] Psychotherapy resources outside of [facility] are listed below [facility] Web: https://www.Heat Biologics/ Support International Online Provider Directory https://Havkraft/ [facility] https://Radar Corporation.DealsAndYou/ Partners for Behavioral Health and Wellness Web: https://DineGasm/ Center for Effective Living Web: https://www.effectiveNovaShuntlivingSeegrid Corp/ LifeStance Web: https://Invrep.DealsAndYou/location/state/[place]/ [facility] Web: https://www.[facility].org/ The Centers Web: https://Phonologics.Music180.com/ Recovery Resources Mental health and substance abuse help Web: https://www.ActionRun & RESOURCES Support International Direct peer support and connection to professional resources Non-Emergency Helpline Phone: / Text: [phone] Web: https://www..net/ Online Provider Directory: https://Havkraft/ Online Support Meetings: https://www..net/get-help/ziz-nltfoo-mmhxlmm-meetings/ [facility] [employer] [facility] [employer] Super[employer] Services Web: https://Abaad Embodied [employer] LLC/ [employer] Sciences Expert information on medication use during and Text: [phone] Web: https://Mono Consultants/ NATIONAL REGISTRY FOR PSYCHIATRIC MEDICATIONS Currently studying the safety of antidepressants, ADHD medications and atypical antipsychotics taken during TO PARTICIPATE CALL TOLL-FREE: Web: https://womensmentalhealth.org/research/pregnancyregistry/ Support Groups: [facility]- Follow on facebook Baby Bistro support group led by [facility] department Resilient Mamas - Support Group [facility].org The POEM support group [phone] Www.poemonline.org Follow on facebook - ELIF chavez Online support meetings PSI https://www..net/get-help/xsx-rmvplg-cchzixw-meetings/ [facility] mommy and me virtual support group 11:30-1pm Support for mothers and new babies and toddlers Formoso childbirth education: Childbirth @ccf.org or call [phone] CRISIS: CRISIS HOTLINE [phone], 911 or go to the nearest ER. [facility] [phone] / [facility] [phone] [email or web address] Crisis text line text the word HOME to [id number] documented in this [facility] History of Present illness Narrative* Jes Arteaga APRN.CNM - 10/16/2021 7:55 AM EDT Angelita is a 26 year old who presents for an annual gynecologic exam without complaints. Currently taking Paxil and Buspar for anxiety and depression. Started seeing a counselor but was told she needed medications and to return once taking. Interested in establishing care with counselor. Menses: cycles: no menses - Mirena IUD- causes anxiety due to no periods. Contraception: IUD HPV vaccine: No Last Pap: 06/23/2020 normal HPV: N/A History of abnormal pap: No Last mammogram: never Sexually active: No History of STDS: None Pain with intercourse: No Postcoital bleeding: No Mood swings: Yes Exercise- walking Diet: Regular Seatbelt use: Yes OB History T2 L2 SAB0 IAB0 Ectopic0 Multiple0 Live Births2 [employer] History LMP: 01/01/2021 (Approximate), IUD Age at Menarche: Age at First : Age at Menopause: [employer] History Comments: Sexual Activity: Yes; Male Contraception: Pill PAST MEDICAL HISTORY Diagnosis Date anxiety Asthma sports induced. No attacks since age 16 depression PAST SURGICAL HISTORY Procedure Laterality Date INSERTION OF IUD 07/15/2020 Mirena PAST SURGICAL HISTORY OF wisdom teeth and root canal FAMILY HISTORY Problem Relation Age of Onset Asthma Mother other (Other tachycardia) Mother other (Other, hernia surgery) Father other (Other irregular heart rate) Father No Known Problems Sister No Known Problems Brother Cancer Maternal Grandmother skin cancer No Known Problems Maternal Grandfather Heart Paternal Grandmother other (benign tumor of ear) Paternal Grandmother No Known Problems Paternal Grandfather Asthma Brother Asthma Sister No Known Problems Son SOCIAL HISTORY Social History Tobacco Use Smoking status: Never Smoker Smokeless tobacco: Never Used Vaping Use Vaping Use: Never used Substance Use Topics Alcohol use: Not Currently Comment: occasionally but not while Drug use: No REVIEW OF SYSTEMS Abdomen: No abdominal pain, nausea, vomiting, or constipation. No bloating, early satiety, indigestion, or increased flatulence. Positive for diarrhea- normal for her Bladder: No dysuria, gross hematuria, urinary frequency, urinary urgency, or incontinence. Breast: No breast lumps, nipple d/c, overlying skin changes, redness or skin retraction. Allergies and current medication updated:Yes EXAM: BP 108/70 Ht 5' 2 (1.58m) Wt 171 lb (77.6kg) LMP 01/01/2021 BMI 31.27 kg/(m^2). GENERAL: pleasant, female in no apparent distress HEENT: Normocephalic, atraumatic, mucus membranes moist and no lesions NECK: Supple, full range of motion and no adenopathy DERMATOLOGY: Normal and without lesions BREAST: soft, non-tender, symmetric, no dominant mass, normal nipple-areolar complex, no lymphadenopathy and no nipple discharge CHEST: Normal inspiratory effort ABDOMEN: soft, non-tender and no masses PELVIC: external genitalia normal, normal Bartholin's glands, urethra, Forrest's glands, no vulvar lesions, no cervical lesions, good vaginal support, physiologic discharge present, normal appearing perineal body and perianal region BIMANUAL: uterus normal size, shape and consistency, no adnexal masses and non-tender RECTOVAGINAL: deferred. NEURO: alert and oriented x3,exam grossly non-focal EXTREMITIES: normal ASSESSMENT/PLAN: 1) Health maintenance: Pap/HPV up to date. 2) Contraception: IUD. Contraceptive options reviewed and information provided- May be interested in removal of IUD due to mood changes and anxiety over no periods. Discussed R/B/A and she may be interested in NuvaRing 3) STD screening: Declined STD check. 4) BACT/YEAST- swab collected for increased vaginal discharge Follow up one year or sooner as needed Jes Arteaga APRN.CNM documented in this encounterK[facility]12-13-2021 Instructions* Patient Instructions* Bri Sánchez MD - 04/13/2021 10:06 AM EST Problem List Items Addressed This Visit Other Overweight (BMI 25.0-29.9) We will get lipid panel, CBC and CMP as well as TSH completed today Patient does have a history of heat intolerance Relevant Orders Comprehensive Metabolic Panel TSH with Reflex Free T4 Lipid Panel Anxiety - Primary Continue Paxil 10 mg We will start BuSpar 10 mg twice daily with third dose as needed Advised patient to follow-up with counseling referrals provided below Behavioral Health Counseling: [facility]- Telehealth available. Medicaid holders in [facility] and outside [facility]. If patient is in [facility] with private insurance they use sliding scale fee based on income. If patient is outside [facility] with private insurance- fees are at 100% ($100 for initial assessment) 24 Hour Crisis: Crisis Text Line: Text 4HOPE to [phone] Rape Crisis/Domestic Violence: Address: [address] [place] [address] [facility]-The first initial visit is $120 and all visits afterward are $100. Your zee-oa-iwzoih fees will vary based on your insurance benefits. Currently participating with Medicare, [employer] [place], Reva CARRION[employer]NATALI, [employer], [employer], [employer] [employer], [place] [employer], [employer], [employer] and [facility]. Address: [address] [place] [address] [facility]-Telehealth available. Currently participating with Medicare, Medicaid, [employer], Reva [employer]NATALI, [employer], [employer], [facility], [place] [employer], [employer], [employer] and [facility]. Sliding fee available for those who do not have insurance. Address: [address] [place] [address] [place] [address] Phone: [facility]- Take Medicaid. They also have reduced fees if paying out of pocket Address: [address] [place] [address] Rosalinda [facility]- Take all insurances, Medicaid and Medicare Address: [address] [place] [address] Relevant Medications PARoxetine (PAXIL) 10 MG tablet busPIRone (BUSPAR) 10 MG tablet Other Relevant Orders CBC and Differential Comprehensive Metabolic Panel Vitamin D, Total, 25-OH TSH with Reflex Free T4 Lipid Panel If any referrals were placed at the time of your visit please allow 2 weeks for processing. If you haven't heard from anyone within 2 weeks please contact my office so we can look into the status of your referral. If you were given any labs today please ensure they are completed according to the directions given. Most normal results will be available through [employer] however if abnormal, you will be notified. Please allow 48-72 hours for review, and let you know what steps, if any, are needed next. If you haven't heard from us after that please call to inquire. If labs were ordered to be done PRIOR to your next visit we will discuss the results at the time ofyour office visit. If any procedures or imaging studies were ordered that must be prior authorized please give us 2 weeks to get them approved. Once approved someone should call you to schedule them or give you a date and time that they were scheduled for. If you haven't heard anything within 2 weeks of the office visit please call the office so we can look into their status. Customer Service/Billing Questions: [phone] [employer] Assistance: [phone] or [phone] Financial Assistance: [phone] or [phone] documented in this [id number] Miscellaneous Notes* Assessment & Plan Note - Bri Sánchez MD - 04/13/2021 10:03 AM EST Associated Problem(s): Overweight (BMI 25.0-29.9) We will get lipid panel, CBC and CMP as well as TSH completed today Patient does have a history of heat intolerance * Assessment & Plan Note - Bri Sánchez MD - 04/13/2021 10:03 AM EST Associated Problem(s): Anxiety Continue Paxil 10 mg We will start BuSpar 10 mg twice daily with third dose as needed Advised patient to follow-up with counseling referrals provided below Behavioral Health Counseling: [facility]- Telehealth available. Medicaid holders in [facility] and outside [facility]. If patient is in [facility] with private insurance they use sliding scale fee based on income. If patient is outside [facility] with private insurance- fees are at 100% ($100 for initial assessment) 24 Hour Crisis: Crisis Text Line: Text 4HOPE to [phone] Rape Crisis/Domestic Violence: Address: [address] [place] [address] [place] [address] [facility]-The first initial visit is $120 and all visits afterward are $100. Your vsr-bk-dmzewj fees will vary based on your insurance benefits. Currently participating with Medicare, [employer] [place], [place] BC/BS, [employer], [employer], [employer], [employer], [employer], [employer] and [facility]. Address: [address] [place] [address].[place] [address] [facility]-Telehealth available. Currently participating with Medicare, Medicaid, Medical[employer], [place] BC/BS, [employer], [employer]et[employer], [employer], [employer], [employer], [employer] and [facility]. Sliding fee available for those who do not have insurance. Address: [address] [place] [address] [place] [address] Phone: [facility]- Take Medicaid. They also have reduced fees if paying out of pocket Address: [address] [place] [address] [facility]- Take all insurances, Medicaid and Medicare Address: [address] [place] [address] documented in this [id number] History of Present illness Narrative* Bri Sánchez MD - 04/13/2021 8:28 AM EST Subjective Patient ID: Angelita Marley is a 25 y.o. female. Chief Complaint Patient presents with Anxiety Establish Care HPI Patient is a very pleasant 25-year-old female with a past medical history of anxiety presenting as a new patient to the clinic today. Anxiety and depression patient's PHQ-9 and caro score are 15 and 14 respectively. Patient states sheis on Prozac 10 mg daily however it has not been controlling her anxiety symptoms. She states beingvery irritable and agitated, and does not sleep very well. Patient does work at a [employer]and states that her work is not social however family life tends to be stressful at times. She does have 2 small children and is . Although she has a good support system she feels like there is things to worry about. She denies any previous hospitalizations or panic attacks but states having tightness in her chest that radiates to her back and goes between her shoulders. She denies any li ghtheadedness, palpitations, nausea, vomiting, headache during these episodes. She denies any suicidal or self-harm ideations or any previous attempts. Patient states that her depressive symptoms areintermittently controlled with Paxil 10 mg which she states that she can have better control. She continues to have decreased concentration, apathy, restless sleep and does have feelings of guilt. Patient does have a significant family history of arrhythmia on her mother side and currently her mother is being evaluated for type I and type II AV block as well as sinus tachycardia. We will continue to evaluate patient if she develops symptoms however she denies any symptoms at this time. All pertinent positives and negatives are documented in ROS Patient's medications, allergies, past medical history, surgical history history, family history, social history were reviewed. Spent more than 20 minutes with patient, coordinating patient care, including reviewing charts and counseling patient. Patient Active Problem List Diagnosis Patellofemoral pain syndrome of right knee Overweight (BMI 25.0-29.9) Anxiety History reviewed. No pertinent surgical history. Family History Problem Relation Age of Onset Heart disease Mother Arrhythmia Mother Social History Tobacco Use Smoking status: Never Smoker Smokeless tobacco: Never Used Vaping Use Vaping Use: Never used Substance Use Topics Alcohol use: Yes Comment: socially Drug use: Never Allergies Allergen Reactions Amoxicillin Unknown When she was a child Outpatient Medications as of 04/13/2021 Medication Sig PARoxetine (PAXIL) 10 MG tablet busPIRone (BUSPAR) 10 MG tablet Take 1 (one) tablet (10 mg total) by mouth 3 (three) times a day . Review of Systems Constitutional: Positive for activity change. Negative for appetite change, chills, diaphoresis, fatigue, fever and unexpected weight change. HENT: Positive for hearing loss (decreased hearing right ear). Eyes: Negative for visual disturbance. Respiratory: Positive for chest tightness (During anxiety attacks). Negative for cough, shortness of breath and wheezing. Cardiovascular: Negative for chest pain and palpitations. Gastrointestinal: Negative for abdominal pain, constipation, diarrhea, nausea and vomiting. Endocrine: Positive for heat intolerance. Negative for polydipsia and polyuria. Neurological: Negative for dizziness, tremors, syncope, weakness, light- headedness and headaches. Psychiatric/Behavioral: Positive for agitation, decreased concentration, dysphoric mood and sleep disturbance. Negative for behavioral problems, confusion, self-injury and suicidal ideas. The patientis nervous/anxious. Objective Vitals: 04/13/21 0810 BP: 134/81 BP Location: Right arm Patient Position: Sitting BP Cuff Size: Adult Pulse: 65 Resp: 16 Temp: 97.6 F (36.4 C) TempSrc: Temporal SpO2: 98% Weight: 72.6 kg (160 lb) Height: 5' 2 Estimated body mass index is 29.26 kg/m as calculated from the following: Height as of this encounter: 5' 2. Weight as of this encounter: 72.6 kg (160 lb). Physical Exam Vitals and nursing note reviewed. Constitutional: Appearance: Normal appearance. HENT: Head: Normocephalic and atraumatic. Right Ear: There is impacted cerumen. Left Ear: There is no impacted cerumen. Mouth/Throat: Mouth: Mucous membranes are moist. Eyes: Extraocular Movements: Extraocular movements intact. Conjunctiva/sclera: Conjunctivae normal. Pupils: Pupils are equal, round, and reactive to light. Cardiovascular: Rate and Rhythm: Normal rate and regular rhythm. Heart sounds: Normal heart sounds. Pulmonary: Effort: Pulmonary effort is normal. Breath sounds: Normal breath sounds. Abdominal: General: Abdomen is flat. There is no distension. Palpations: Abdomen is soft. Musculoskeletal: General: Normal range of motion. Skin: General: Skin is warm. Neurological: General: No focal deficit present. Mental Status: She is alert and oriented to person, place, and time. Mental status is at baseline. Psychiatric: Attention and Perception: Attention and perception normal. Mood and Affect: Mood normal. Speech: Speech normal. Behavior: Behavior normal. Thought Content: Thought content normal. Cognition and Memory: Cognition and memory normal. Judgment: Judgment normal. PHQ9: Over the last 2 weeks, how often have you been bothered by any of the following problems? Little interest or pleasure in doing things: Several days Feeling down, depressed, or hopeless: Several days PHQ-2 Total Score: 2 Trouble falling or staying asleep, or sleeping too much: Nearly every day Feeling tired or having little energy: More than half the days Poor appetite or overeating: More than half the days Feeling bad about yourself - or that you are a failure or have let yourself or your family down: Nearly every day Trouble concentrating on things, such as reading the newspaper or watching television: More than half the days Moving or speaking so slowly that other people could have noticed. Or the opposite - being so fidgety or restless that you have been moving around a lot more than usual: Several days Thoughts that you would be better off , or of hurting yourself in some way: Not at all PHQ-9 Total Score: 15 If you checked off any problems, how difficult have these problems made it for you to do your work,take care of things at home, or get along with other people?: Somewhat difficult CARO-7 Over the last 2 weeks, how often have you been bothered by the following problems? Feeling nervous, anxious or on edge: Over half the days Not being able to stop or control worrying: Several days Worrying too much about different things: Over half the days Trouble relaxing: Nearly every day Being so restless that it is hard to sit still: Over half the days Becoming easily annoyed or irritable: Nearly every day Feeling afraid as if something awful might happen: Several days CARO-7 Score: (!) 14 Tobacco Counseling: Counseling given: Not Answered Assessment/Plan: Problem List Items Addressed This Visit Other Overweight (BMI 25.0-29.9) We will get lipid panel, CBC and CMP as well as TSH completed today Patient does have a history of heat intolerance Relevant Orders Comprehensive Metabolic Panel TSH with Reflex Free T4 Lipid Panel Anxiety - Primary Continue Paxil 10 mg We will start BuSpar 10 mg twice daily with third dose as needed Advised patient to follow-up with counseling referrals provided below Behavioral Health Counseling: [facility]- Telehealth available. Medicaid holders in [facility] and outside [facility]. If patient is in [facility] with private insurance they use sliding scale fee based on income. If patient is outside [facility] with private insurance- fees are at 100% ($100 for initial assessment) 24 Hour Crisis: Crisis Text Line: Text 4HOPE to 632824 Rape Crisis/Domestic Violence: Address: [address] [place] [address], [place] [address] [facility]-The first initial visit is $120 and all visits afterward are $100. Your qih-sc-pbyzrk fees will vary based on your insurance benefits. Currently participating with Medicare, [employer] [place], [place] BC/BS, [employer], [employer], [employer], [employer], [employer], [employer] and [facility]. Address: [address] [place] [address].[place] [address] [facility]-Telehealth available. Currently participating with Medicare, Medicaid, MedicalMutual, [place] BC/BS, [employer], [employer], [employer], [employer], [employer], [employer] and [facility]. Sliding fee available for those who do not have insurance. Address: [address] [place] [address] [place] [address] Phone: [facility]- Take Medicaid. They also have reduced fees if paying out of pocket Address: [facility] Eunice Pacheco [facility]- Take all insurances, Medicaid and Medicare Address: [address] [place] [address] Relevant Medications PARoxetine (PAXIL) 10 MG tablet busPIRone (BUSPAR) 10 MG tablet Other Relevant Orders CBC and Differential Comprehensive Metabolic Panel Vitamin D, Total, 25-OH TSH with Reflex Free T4 Lipid Panel Return in about 4 weeks (around 05/11/2021) for Follow Up telehealth anxiety and depression. For any new medications prescribed today, patient was educated about indications for the medication, how to take the medication and potential side effects of the medications. Bri Sánchez MD documented in this [id number] History of Present illness Narrative* Kuldeep Keene, PT - 10/15/2020 5:18 PM EDT PT POC to be D/C'd this date d/t non compliance with attendance of scheduled PT sessions. documented in this [id number] History of Present illness Narrative* Kuldeep Keene, PT - 10/06/2020 4:45 PM EDT [facility] Evaluation Today's Date 10/06/2020 Patient Name: Angelita Marley Date of : 1995 Case Name: Right Patellofemoral Pain Syndrome Functional Diagnosis: 1. Patellofemoral pain syndrome of right knee Clinical Information: Subjective Referring Diagnosis: Right Patellofemoral Pain Syndrome Follow Up With Physician: none scheduled. History of Present Illness Contemporary Medical History: 09/25/20: LG Jt Injection/Arthrocentesis: Right knee Subjective History: Pt reports c/o right knee pain that has significantly improved since receiving an injection. She reports stepping on her child's ball at the bottom of the stairs causing her rightleg to come out from underneath her and fall. She immediately felt pain which worsened over the next few days as she continued to run. The pain increased to the point she could barely stand before she consulted with orthopedics. She reports some residual weakness and feeling of instability now as she is progressing her walking back to jogging. 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 Red Flags: None Comments: Barriers to Care: None Buddhist, social, or cultural considerations to be made aware of before starting treatment: No Knee Right Knee Tenderness: medial joint line, patellar tendon and infrapatellar Range of Motion: Flexion Active: 138 Extension Active: 5 (hyperextension) Muscle Strength: Flexion: 5 Extension: 5 Special Tests Pollo (Medial): Negative Pollo (Lateral): Negative Stress Test (Varus): Negative Stress Test (Valgus): Negative Anterior Drawer: Negative Posterior Drawer: Negative Patellar Femoral Grind: Positive Patellar mobility is slightly hypomobile with some medial tracking during extension Functional hip and knee strength appears WNL during squatting FOTO: 38 Ankle/Foot Right Ankle/Foot Right Ankle/Foot WFL Treatments: Physical Therapy Exercise Log - 10/06/20 3202 OTHER Notes Visit 1: 4:50 - 5:25 Therapeutic Exercise (19932) Intervention provided written HEP handouts consisting of the following: Parameters HS stretch Intervention figure 4 stretch Parameters quad sets w/ knee prop Intervention SLR in ER Parameters sidelying clamshells Intervention sidelying SLR abd PT Treatment Times Total Treatment Time 35 Goals: Physical Therapy Ortho Goals: MOBILITY: Patient will be able to ambulate for >1 hour in community without difficulty in 6 weeks. MOBILITY: Patient will be able to ambulate on uneven surfaces without difficulty in 4 weeks. MOBILITY: Patient will be able to ascend/descend stairs without difficulty in 4 weeks. IMPAIRMENT: Patient will report no pain during exercise progressions and as she returns to jogging and other recreational activities. OTHER: Patient will increase FOTO score from 38 to at least 50 to show MDC/MCII and expected functional outcome in 6 weeks. OTHER: Patient will be able to properly demonstrate independence with HEP in 1 week. CPT Code 05209 Low 66626 Moderate 58419 High History 0 1-2 3+ Comorbidities: unremarkable, Personal factors: chronicity or severity of the current condition Examination of body systems (elements of body structures & functions, activity limitations, and/or participation restrictions) 1-2 elements 3+ elements 4+ elements See below clinical impression Clinical Presentation Stable Evolving Unstable As evidenced by reproduction of or changes in symptoms with certain movements and pt report of overall improving symptom level over time Decision Making Low (FOTO >/= 69) Moderate (FOTO 34 - 68) High (FOTO </= 33) FOTO score= 38 Pt is a 25 y.o. female who presents to PT services with c/o right knee pain. Upon assessment, pt has been found with the following impairments: dysfunctional movements indicated by medial patellar tracking and hyperextension, decreased stability and pain. 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 The pt would benefit from skilled PT services focused on the above listed impairments and limitations in order to safely progress pt to their desired levelof function. Pt to be discharged from OP PT services if/when goals are met, if they fail to make progress with conservative management in PT, if their level of progress plateaus, or if they do not maintain compliance with attendance or HEP. At this time, it is my clinical judgment that services are medically necessary. Plan of Care Frequency of Visits: 2 times per week Duration: 6 weeks Interventions: Therapeutic Exercise, Neuromuscular Re-Education, Manual Therapy, Hot/Cold Pack and Vasopneumatic Rehab Potential: good Suicide Screen Signs and Symptoms of Abuse/Neglect: No Actions Taken: No Suicide Risk: Does the patient feel like ending their life today?No Actions Taken: No Patient Education Provided Pt was educated on the benefits of therapy and importance of compliance with sessions and HEP for rehabilitation. Pt was also educated on treatment diagnosis, POC, and frequency/duration of treatment. Clinical Impression Pt would benefit from PT interventions for patellofemoral pain syndrome to address impairments in strength and stability as well as pain control. Kuldeep Keene PT State License, [id number] documented in this [id number] History of Present illness Narrative* Adriane Cedeño CNP - 09/25/2020 3:25 PM EDT Associated Order(s): LG Jt Injection/Arthrocentesis: R knee Post-Procedure Diagnose(s): Patellofemoral pain syndrome of right knee LG Jt Injection/Arthrocentesis: R knee Performed by: Adriane Cedeño CNP Authorized by: Adriane Cedeño CNP CPT [id number] - Large Joint Arthrocentesis: Consent given by: Patient Time out: Immediately prior to the procedure a time out was called Timeout performed at: 09/25/2020 3:26 PM Physician or proceduralist has discussed critical or nonroutine steps, procedure duration and anticipated blood loss: Yes Supporting Documentation: Indications: Pain Procedure Details: Location: Knee Site: R knee Prep: patient was prepped and draped in usual sterile fashion Needle size: 22 G Approach: Anterolateral Medications: 40 mg triamcinolone acetonide 40 mg/mL Anesthetic used: Bupivacaine 0.25% and Ethyl Chloride Anesthetic amount (mL): 5 Patient tolerance: Patient tolerated the procedure well with no immediate complications * Adriane Cedeño CNP - 09/25/2020 2:30 PM EDT Angelita Marley 1995 CC: 25 y.o. is a she with No chief complaint on file. . HPI: Knee Pain: Patient complains of right knee pain. This is evaluated as a personal injury. The pain began several months ago but the other day she was going down stairs and her heel slipped and her knee gave out. The pain is located medial, lateral, patellar. She describes the symptoms as aching. Rates pain 5/10. Symptoms improve with rest. The symptoms are worse with activity, stair climbing,kneeling, deep knee bending, getting up from a chair, weight bearing. The knee has given out or felt unstable. The patient can bend and straighten the knee fully. The patient is active in none. Treatment to date has been ice, heat, Tylenol, NSAID's, with significant relief in the past. PMH: No Known Allergies No current outpatient medications on file. History reviewed. No pertinent past medical history. History reviewed. No pertinent surgical history. Social History Socioeconomic History Marital status: Spouse name: Not on file Number of children: Not on file Years of education: Not on file Highest education level: Not on file Occupational History Not on file Tobacco Use Smoking status: Not on file Substance and Sexual Activity Alcohol use: Not on file Drug use: Not on file Sexual activity: Not on file Other Topics Concern Not on file Social History Narrative Not on file Social Determinants of Health Financial Resource Strain: Difficulty of Paying Living Expenses: Food Insecurity: Worried About Running Out of Food in the Last Year: Ran Out of Food in the Last Year: Transportation Needs: Lack of Transportation (Medical): Lack of Transportation (Non-Medical): Physical Activity: Days of Exercise per Week: Minutes of Exercise per Session: Stress: Feeling of Stress : Social Connections: Frequency of Communication with Friends and Family: Frequency of Social Gatherings with Friends and Family: Attends Buddhist Services: Active Member of Clubs or Organizations: Attends Club or Organization Meetings: Marital Status: ROS: Review of Systems Constitutional: Negative for activity change and fatigue. HENT: Negative. Eyes: Negative. Respiratory: Negative for chest tightness and shortness of breath. Cardiovascular: Negative for chest pain. Gastrointestinal: Negative. Endocrine: Negative. Genitourinary: Negative. Musculoskeletal: Positive for arthralgias. Skin: Negative for color change. Allergic/Immunologic: Negative. Neurological: Negative for dizziness, light-headedness and numbness. Hematological: Negative. Psychiatric/Behavioral: Negative for agitation. PE: Physical Exam Constitutional: Appearance: She is well-developed. HENT: Head: Normocephalic and atraumatic. Eyes: Pupils: Pupils are equal, round, and reactive to light. Cardiovascular: Rate and Rhythm: Normal rate and regular rhythm. Pulmonary: Effort: Pulmonary effort is normal. Breath sounds: Normal breath sounds. Abdominal: Palpations: Abdomen is soft. Musculoskeletal: General: Tenderness present. Cervical back: Normal range of motion and neck supple. Right knee: Instability Tests: Medial Pollo test negative and lateral Pollo test negative. Skin: General: Skin is warm and dry. Neurological: Mental Status: She is alert and oriented to person, place, and time. Psychiatric: Behavior: Behavior normal. Right Knee Exam Tenderness The patient is experiencing tenderness in the patella and medial joint line. Range of Motion Extension: -5 abnormal Flexion: normal Tests Pollo: Medial - negative Lateral - negative Varus: negative Valgus: negative Raudel: Anterior - negative Posterior - negative Other Erythema: absent Scars: absent Sensation: normal Pulse: present Swelling: mild Comments: Pain and weakness with compression on the patellofemoral joint Left Knee Exam Left knee exam is normal. Imaging: Reviewed right knee xray in office today that is normal. Formal read to be done by radiology. Diagnosis: Problem List Items Addressed This Visit None Visit Diagnoses Patellofemoral pain syndrome of right knee - Primary Relevant Orders Ambulatory Ref to [facility] (PT/OT/ST) Plan: Discussed xray results, symptoms, and physical exam with the patient. She is having patellofemoral pain so I offered her a cortisone injection, a reaction knee brace and physical therapy.. She is wanting to try these. She will call into the office in about 4 weeks if she is not better and I will order a MRI. She understands and agrees to proceed. Follow Up: Return if symptoms worsen or fail to improve. Adriane Cedeño CNP documented in this [id number] History of Past illness Narrative* Problem Noted Date Resolved Date Short interval between pregn ancies affecting , antepartum 09/13/2019 06/12/2020 Overview: 09/13/2019Patient delivered her last child on January 18, 2019. TKRN History of depression 09/13/2019 06/12/2020 Overview: 09/13/2019She has a history of depression. She states it lasted about 6 months. Never took any medication to treat it. Never had counseling.Pt denies ever having any suicidal thoughts or tendencies or thoughts of hurting others.Discussed increased risks of depression during and and importance of reporting the development or worsening of symptoms should they occur. TKRN Encounter for supervision of normal first in first trimester 09/22/2018 06/12/2020 Genetic testing 05/25/2018 06/22/2018 Overview: 05/25/18 Pt undecided on aneuploidy and carrier testing at [facility]. She is going to call if she decides she would like it, or notify us at next appointment. SW Encounter for ultrasound 05/25/2018 0 06/22/2018 Overview: 05/25/18 Difficult dating scan at [facility] given pt only 6 wks. Ordered dating scan to be completed in 1-2 weeks. SW Asthma complicating in first trimester 05/25/2018 06/12/2020 Overview: 05/25/18 Sports-induced only. Does not currently use Albuterol inhaler. SW documented as of this encounter (statuses as of 10/16/2021) [facility]-14-2020 History of Past illness Narrative* Problem Noted Date Resolved Date Short interval between pregn ancies affecting , antepartum 09/13/2019 06/12/2020 Overview: 09/13/2019Patient delivered her last child on January 18, 2019. TKRN History of depression 09/13/2019 06/12/2020 Overview: 09/13/2019She has a history of depression. She states it lasted about 6 months. Never took any medication to treat it. Never had counseling.Pt denies ever having any suicidal thoughts or tendencies or thoughts of hurting others.Discussed increased risks of depression during and and importance of reporting the development or worsening of symptoms should they occur. TKRN Encounter for supervision of normal first in first trimester 09/22/2018 06/12/2020 Genetic testing 05/25/2018 06/22/2018 Overview: 05/25/18 Pt undecided on aneuploidy and carrier testing at [facility]. She is going to call if she decides she would like it, or notify us at next appointment. SW Encounter for ultrasound 05/25/2018 0 06/22/2018 Overview: 05/25/18 Difficult dating scan at [facility] given pt only 6 wks. Ordered dating scan to be completed in 1-2 weeks. SW Asthma complicating in first trimester 05/25/2018 06/12/2020 Overview: 05/25/18 Sports-induced only. Does not currently use Albuterol inhaler. SW documented as of this encounter (statuses as of 10/20/2021) [facility]-14[facility]2020 History of Past illness Narrative* Problem Noted Date Resolved Date Short interval between pregn ancies affecting , antepartum 09/13/2019 06/12/2020 Overview: 09/13/2019Patient delivered her last child on January 18, 2019. TKRN History of depression 09/13/2019 06/12/2020 Overview: 09/13/2019She has a history of depression. She states it lasted about 6 months. Never took any medication to treat it. Never had counseling.Pt denies ever having any suicidal thoughts or tendencies or thoughts of hurting others.Discussed increased risks of depression during and and importance of reporting the development or worsening of symptoms should they occur. TKRN Encounter for supervision of normal first in first trimester 09/22/2018 06/12/2020 Genetic testing 05/25/2018 06/22/2018 Overview: 05/25/18 Pt undecided on aneuploidy and carrier testing at [facility]. She is going to call if she decides she would like it, or notify us at next appointment. SW Encounter for ultrasound 05/25/2018 0 06/22/2018 Overview: 05/25/18 Difficult dating scan at [facility] given pt only 6 wks. Ordered dating scan to be completed in 1-2 weeks. SW Asthma complicating in first trimester 05/25/2018 06/12/2020 Overview: 05/25/18 Sports-induced only. Does not currently use Albuterol inhaler. SW documented as of this encounter (statuses as of 11/18/2021) [facility]-14[facility]2020 History of Past illness Narrative* Problem Noted Date Resolved Date Short interval between pregn ancies affecting , antepartum 09/13/2019 06/12/2020 Overview: 09/13/2019Patient delivered her last child on January 18, 2019. TKRN History of depression 09/13/2019 06/12/2020 Overview: 09/13/2019She has a history of depression. She states it lasted about 6 months. Never took any medication to treat it. Never had counseling.Pt denies ever having any suicidal thoughts or tendencies or thoughts of hurting others.Discussed increased risks of depression during and and importance of reporting the development or worsening of symptoms should they occur. TKRN Encounter for supervision of normal first in first trimester 09/22/2018 06/12/2020 Genetic testing 05/25/2018 06/22/2018 Overview: 05/25/18 Pt undecided on aneuploidy and carrier testing at [facility]. She is going to call if she decides she would like it, or notify us at next appointment. SW Encounter for ultrasound 05/25/2018 0 06/22/2018 Overview: 05/25/18 Difficult dating scan at [facility] given pt only 6 wks. Ordered dating scan to be completed in 1-2 weeks. SW Asthma complicating in first trimester 05/25/2018 06/12/2020 Overview: 05/25/18 Sports-induced only. Does not currently use Albuterol inhaler. SW documented as of this encounter (statuses as of 01/21/2022) [facility]-14-2020 History of Past illness Narrative* Problem Noted Date Resolved Date Short interval between pregn ancies affecting , antepartum 09/13/2019 06/12/2020 Overview: 09/13/2019Patient delivered her last child on January 18, 2019. TKRN History of depression 09/13/2019 06/12/2020 Overview: 09/13/2019She has a history of depression. She states it lasted about 6 months. Never took any medication to treat it. Never had counseling.Pt denies ever having any suicidal thoughts or tendencies or thoughts of hurting others.Discussed increased risks of depression during and and importance of reporting the development or worsening of symptoms should they occur. TKRN Encounter for supervision of normal first in first trimester 09/22/2018 06/12/2020 Genetic testing 05/25/2018 06/22/2018 Overview: 05/25/18 Pt undecided on aneuploidy and carrier testing at [facility]. She is going to call if she decides she would like it, or notify us at next appointment. SW Encounter for ultrasound 05/25/2018 0 06/22/2018 Overview: 05/25/18 Difficult dating scan at [facility] given pt only 6 wks. Ordered dating scan to be completed in 1-2 weeks. SW Asthma complicating in first trimester 05/25/2018 06/12/2020 Overview: 05/25/18 Sports-induced only. Does not currently use Albuterol inhaler. SW documented as of this encounter (statuses as of 01/29/2022) [facility]-14[facility]2020 History of Past illness Narrative* Problem Noted Date Diagnosed Date Resolved Date Short interval between pregn ancies affecting , antepartum 09/13/2019 06/12/2020 Overview: 09/13/2019Patient delivered her last child on January 18, 2019. TKRN History of depression 09/13/2019 06/12/2020 Overview: 09/13/2019She has a history of depression. She states it lasted about 6 months. Never took any medication to treat it. Never had counseling.Pt denies ever having any suicidal thoughts or tendencies or thoughts of hurting others.Discussed increased risks of depression during and and importance of reporting the development or worsening of symptoms should they occur. TKRN Encounter for supervision of normal first in first trimester 09/22/2018 06/12/2020 Genetic testing 05/25/2018 06/22/2018 Overview: 05/25/18 Pt undecided on aneuploidy and carrier testing at [facility]. She is going to call if she decides she would like it, or notify us at next appointment. SW Encounter for ultrasound 05/25/2018 06/22/2018 Overview: 05/25/18 Difficult dating scan at [facility] given pt only 6 wks. Ordered dating scan to be completed in 1-2 weeks. SW Asthma complicating pregnanc y in first trimester 05/25/2018 06/12/2020 Overview: 05/25/18 Sports-induced only. Does not currently use Albuterol inhaler. SW documented as of this encounter (statuses as of 08/11/2023) [facility] note* Diagnosis Patellofemoral pain syndrome of right knee- Primary documented in this encounter [facility] note* Diagnosis Patellofemoral pain syndrome of right knee documented in this encounter [facility]* Diagnosis Anxiety- Primary Anxiety state, unspecified Overweight (BMI 25.0-29.9) Overweight documented in this encounter [facility] note* Diagnosis Encounter for gynecological examination (general) (routine) without abnormal findings- Primary Vaginal discharge Leukorrhea, not specified as infective documented in this encounter [facility] note* Diagnosis Anxiety with depression documented in this encounter [facility] note* Diagnosis Encounter for IUD removal- Primary Encounter for removal of intrauterine contraceptive device documented in this encounter [facility] note* Diagnosis Anxiety- Primary Anxiety state, unspecified documented in this encounter [facility]* Diagnosis Dizziness- Primary Dizziness and giddiness Chest pain, unspecified type Anxiety Anxiety state, unspecified Dizziness Dizziness and giddiness documented in this encounter [facility]* Diagnosis RLQ abdominal pain- Primary Abdominal pain, right lower quadrant [facility] Diagnosis Anxiety Anxiety state, unspecified [facility]* Diagnosis Anxiety Anxiety state, unspecified [facility]* Diagnosis Plantar fasciitis- Primary Plantar fascial fibromatosis Plantar fasciitis, right Heel spur, right [facility]* Diagnosis Plantar fasciitis, right- Primary Heel spur, right [facility]* Diagnosis Plantar fasciitis, right- Primary Heel spur, right Heel spur, right documented [facility]* Diagnosis Postop check- Primary Follow-up examination, following unspecified surgery Heel spur, right [facility]* Diagnosis Postop check- Primary Follow-up examination, following unspecified surgery [facility]* Diagnosis Plantar fasciitis- Primary Plantar fascial fibromatosis Scar tissue Scar condition and fibrosis of skin documented in this encounter [facility] note* Diagnosis CARO (generalized anxiety disorder)- Primary Generalized anxiety disorder Difficulty sleeping Sleep disturbance, unspecified documented in this encounter [facility] note* Diagnosis Heel spur, right- Primary Plantar fasciitis, right [M72.2] Scar tissue [L90.5] Scar condition and fibrosis of skin documented in this encounter [facility] note* Diagnosis Difficulty sleeping Sleep disturbance, unspecified documented in this encounter [facility] note* Diagnosis Plantar fasciitis, right- Primary Scar tissue Scar condition and fibrosis of skin documented in this encounter [facility] note* Diagnosis Wellness examination- Primary CARO (generalized anxiety disorder) Generalized anxiety disorder Irritable bowel syndrome with diarrhea Irritable bowel syndrome Fatigue, unspecified type Groin mass in female Abdominal or pelvic swelling, mass, or lump, other specified site Difficulty sleeping Sleep disturbance, unspecified Dysphagia, unspecified type Screening cholesterol level Screening for lipoid disorders Screening for diabetes mellitus documented in this encounter [facility] note* Diagnosis Plantar fasciitis, right [M72.2]- Primary Heel spur, right Scar tissue [L90.5] Scar condition and fibrosis of skin documented in this encounter [facility] note* Diagnosis Difficulty sleeping Sleep disturbance, unspecified documented in this encounter [facility] note* Diagnosis Plantar fasciitis, right- Primary Congenital forefoot valgus Plantar fasciitis, left documented in this encounter [facility] note* Diagnosis CARO (generalized anxiety disorder) Generalized anxiety disorder documented in this encounter [facility] note* Diagnosis CARO (generalized anxiety disorder)- Primary Generalized anxiety disorder documented in this encounter [facility] note* Diagnosis Pain in both hands- Primary Numbness and tingling Disturbance of skin sensation Skin lesion Unspecified disorder of skin and subcutaneous tissue Right ear pain Otalgia, unspecified Screening for depression Encounter for screening examination for other mental health and behavioral disorders documented in this encounter [facility] note* Diagnosis Other disturbances of skin sensation- Primary Pain in both hands Numbness and tingling Disturbance of skin sensation documented in this encounter [facility] note* Diagnosis Ulnar neuropathy at elbow, unspecified laterality- Primary Pain in both hands Numbness and tingling Disturbance of skin sensation documented in this encounter [facility] note* Diagnosis Seasonal allergies- Primary Allergic rhinitis, cause unspecified Left wrist pain Pain in joint, forearm Tail bone pain Other disorder of coccyx Tail bone pain Other disorder of coccyx Left wrist pain Pain in joint, forearm [facility]* Diagnosis Tail bone pain Other disorder of coccyx Left wrist pain Pain in joint, forearm [facility]* Diagnosis Seasonal allergies Allergic rhinitis, cause unspecified documented in this encounter [facility] note* Diagnosis Pain in both hands Numbness and tingling Disturbance of skin sensation Ulnar neuropathy at elbow, unspecified laterality documented in this encounter [facility] note* Diagnosis Other chest pain- Primary documented in this encounter [facility] noteNo assessment information availableWPro[facility]: [facility]* Diagnosis Gastroesophageal reflux disease with esophagitis, unspecified whether hemorrhage- Primary Migraine without aura and without status migrainosus, not intractable Migraine without aura, without mention of intractable migraine without mention of status migrainosus Bilateral hand pain Pain in limb Esophageal spasm Dyskinesia of esophagus Numbness Disturbance of skin sensation [facility]* Diagnosis Acute nonintractable headache, unspecified headache type- Primary Homonymous hemianopia, unspecified laterality Vision changes Left against medical advice documented in this encounter [facility] Work Phone: Evaluation note* Diagnosis Bilateral hand pain Pain in limb [facility]* Diagnosis Visual field loss- Primary Visual field defect, unspecified documented in this encounter [facility] note* Diagnosis Vision disturbance- Primary Unspecified visual disturbance documented in this encounter [facility] Work Phone: Evaluation note* Diagnosis Visual field loss- Primary Visual field defect, unspecified [facility]* Diagnosis Visual field loss Visual field defect, unspecified [facility]* Diagnosis CARO (generalized anxiety disorder) Generalized anxiety disorder [facility]* Diagnosis Cerebral infarction, unspecified mechanism (HCC)- Primary [facility]* Diagnosis History of ischemic stroke- Primary Cerebral infarction, unspecified mechanism (HCC) Other migraine without status migrainosus, not intractable Thunderclap headache Headache Visual disturbance Unspecified visual disturbance Abnormal brain MRI Nonspecific (abnormal) findings on radiological and other examination of skull and head Cerebral infarction, unspecified mechanism (HCC) [facility] [facility]* Diagnosis Cerebral infarction, unspecified mechanism (HCC) documented in this encounter [facility] note* Diagnosis Hyperlipidemia, unspecified hyperlipidemia type- Primary documented in this encounter [facility] note* Diagnosis Chest pain, unspecified type- Primary documented in this encounter [facility]* Diagnosis Cerebral infarction, unspecified mechanism (HCC) [facility]* Diagnosis Migraine without aura and without status migrainosus, not intractable Migraine without aura, without mention of intractable migraine without mention of status migrainosus Difficulty sleeping Sleep disturbance, unspecified [facility]* Diagnosis Migraine without aura and without status migrainosus, not intractable Migraine without aura, without mention of intractable migraine without mention of status migrainosus documented in this encounter [facility]* Diagnosis Other chest pain documented in this encounter [facility]* Diagnosis PFO (patent foramen ovale) (HCC)- Primary Ostium secundum type atrial septal defect [facility] Discharge instructionsAdditional Instructions Follow-up with your primary care physician outpatient setting. Return with worsening symptoms or any other concerns. Your blood work did not show any acute findings your chest x-ray was normal.[facility] Work Phone: Reason for referral (narrative)* Outpatient Procedure (Routine) - Pending Review Specialty Diagnoses / Procedures Referred By Amita loredo Referred To Contact [facility] Diagnoses Encounter for IUD removal Procedures REMOVE INTRAUTERINE DEVICE REMOVE INTRAUTERINE DEVICE Shine Neal MD [address] [place] [address] [facility] [address] [place] [address] Referral ID Status Reason Start Date Expiration Date Visits Requested Visits Authorized [id number] Pending Review Auto-Generat ed Referral 01/21/2022 01/20/[address] [facility] for referral (narrative)* Consultation (Routine) - Authorized Specialty Diagnoses / Procedures Referred By Contac t Referred To Contact Grade Teacher Diagnoses Anxiety Bri Sánchez MD [address] [address] Referral ID Status Reason Start Date Expiration Date Visits Requested Visits Authorized [id number] Authorized Specialty Services Required/Pat ient's Best Interest 04/05/2022 04/05/2023 1 1 [facility] for referral (narrative)* Diagnostic Procedure Only (Routine) - Authorized Specialty Diagnoses / Procedures Referred By Amita t Referred To Contact US IMAGING Diagnoses Pain in both hands Numbness and tingling Ulnar neuropathy at elbow, unspecified laterality Procedures US ELBOW LEFT US LMTD JOINT/OTH NONVASC XTR STRUX R-T W/IMG Luis Lovett MD [address] [place] [address] [place] [address] Referral ID Status Reason Start Date Expiration Date Visits Requested Visits Authorized [id number] Authorized Auto-Generat ed Referral 4 04/11/2025 1 1 * Diagnostic Procedure Only (Routine) - Authorized Specialty Diagnoses / Procedures Referred By Amita loredo Referred To Contact US IMAGING Diagnoses Pain in both hands Numbness and tingling Ulnar neuropathy at elbow, unspecified laterality Procedures US ELBOW RIGHT US LMTD JOINT/OTH NONVASC XTR STRUX R-T W/Luis Naranjo MD [address] [place] [address] [place] [address] Referral ID Status Reason Start Date Expiration Date Visits Requested Visits Authorized [id number] Authorized Auto-Generat ed Referral 4 04/11/[address] [facility] for referral (narrative)No reason for referral [facility]: Reason for visit Narrative* Diagnostic Procedure Only (Urgent) - Closed Specialty Diagnoses / Procedures Referred By Contac t Referred To Contact XR IMAGING Diagnoses Tail bone pain Procedures XR SACRUM/COCCYX 3V AP/LAT RADEX SACRUM & COCCYX MINIMUM 2 VIEWS Kenzie Bowen, HUNTER TRAPPER.CATERING ADMINISTRATIVE ASSISTANT [address] [place] [address] Phone: tel: fax: [place] [address] Referral ID Status Reason Start Date Expiration Date V isits Requested Visits Authorized [id number] Closed Auto-Generate d Referral 07/27/2024 08/26/[address] [facility] for visit Narrative* Diagnostic Procedure Only (Routine) - Closed Specialty Diagnoses / Procedures Referred By Contac t Referred To Contact US IMAGING Diagnoses Pain in both hands Numbness and tingling Ulnar neuropathy at elbow, unspecified laterality Procedures US ELBOW RIGHT US LMTD JOINT/OTH NONVASC XTR STRUX R-T W/IMG Luis Lovett MD [address] [place] [address] Phone: tel: fax: [place] [address] Referral ID Status Reason Start Date Expiration Date V isits Requested Visits Authorized [id number] Closed Auto-Generate d Referral 03/12/2024 04/11/[address] [facility] for visit Narrative* Diagnostic Procedure Only (Routine) - Closed Specialty Diagnoses / Procedures Referred By Contac t Referred To Contact XR IMAGING Diagnoses Bilateral hand pain Procedures XR HAND/WRIST SURVEY ARTHRITIS 1V PA BILATERAL JOINT SURVEY SINGLE VIEW 2 OR MORE JOINTS Cecile Luis, HUNTER TRAPPER.CATERING ADMINISTRATIVE ASSISTANT [address] [place] [address] Phone: tel: fax: [place] [address] Referral ID Status Reason Start Date Expiration Date V isits Requested Visits Authorized [id number] Closed Auto-Generate d Referral 11/08/2024 12/08/[address] [facility] for visit Narrative* MRI/CT (Routine) - Closed Specialty Diagnoses / Procedures Referred By Contac t Referred To Contact MR IMAGING Diagnoses Visual field loss Procedures MRI BRAIN WO/W IVCON MRI BRAIN BRAIN STEM W/O W/CONTRAST MATERIAL Ara Cox MD [address] [place] [address] Phone: tel: fax: MR IM[facility] [place] [address] Referral ID Status Reason Start Date Expiration Date V isits Requested Visits Authorized [id number] Closed Auto-Generate d Referral 11/13/2024 05/01/[address] [facility] for visit Narrative* Diagnostic Procedure Only (Routine) - Closed Specialty Diagnoses / Procedures [facility] Ref[facility] To Contact [facility] IM[facility] Diagnoses Cerebral infarction, unspecified mechanism (HCC) Procedures US TCD BUBBLE STUDY TCD STD ICR ART NANO-ARTL SHNT DETCJ IV MBUBB NJX Flavio Navarrete MD [address] [place] [address] Phone: tel: fax: [facility] [place] [address] Referral ID Status Reason Start Date Expiration Date V isits Requested Visits Authorized [id number] Closed Auto-Generate d Referral 11/22/2024 12/22/[address] [facility] for visit Narrative* Diagnostic Procedure Only (Routine) - Closed Specialty Diagnoses / Procedures [facility] Referred To Contact [facility] Diagnoses Cerebral infarction, unspecified mechanism (HCC) Procedures US DVT LOWER BILATERAL DUP-SCAN XTR VEINS COMPLETE BILATERAL STUDY Flavio Navarrete MD [address] [place] [address] Phone: tel: fax: [facility] [place] [address] Referral ID Status Reason Start Date Expiration Date V isits Requested Visits Authorized [id number] Closed Auto-Generate d Referral 11/22/2024 12/22/[address] [facility] for visit Narrative* MRI/CT (Routine) - Closed Specialty Diagnoses / Procedures [facility] Referred To Contact CT IMAGING Diagnoses Other chest pain Procedures CTA CORONARY W IVCON CTA HRT CORNRY ART/BYPASS GRFTS CONTRST 3D POST Adriane Gonzales MD [address] [place] [address] Phone: tel: fax: [place] [phone] Referral ID Status Reason Start Date Expiration Date V isits Requested Visits Authorized [id number] Closed Auto-Generate d Referral 12/26/2024 05/01/2025 1 1 [facility] Reason for Referral Status Reason Specialty Diagnoses / Procedures Referred By Contact Referred To Contact Authorized Rehabilitation Diagnoses Patellofemoral pain syndrome of right knee Adriane Cedeño, CATERING ADMINISTRATIVE ASSISTANT 24 [facility] 2 [place] [address] [address] Specialty Diagnoses / Procedures Referred By Contac t Referred To Contact Cardiology Diagnoses Dizziness Procedures Echocardiogram complete Bri Sácnhez MD [address] [address] [facility] [place] [address] [place] [address] Referral ID Status Reason Start Date Expiration Date V isits Requested Visits Authorized [id number] Authorized 05/18/2022 05/18/2023 1 1 Specialty Diagnoses / Procedures Referred By Contac t Referred To Contact Family Medicine Diagnoses RLQ abdominal pain Bri Sánchez MD [address] [address] Estrellita Shipley CATERING ADMINISTRATIVE ASSISTANT [address] [place] [address] Referral ID Status Reason Start Date Expiration Date Visits Requested Visits Authorized [id number] Authorized Patient Preference 06/08/2022 06/08/2023 1 1 Scheduling Instructions [facility] [address], [place] [address] Specialty Diagnoses / Procedures Referred By Contac t Referred To Contact Rehabilitation Diagnoses Plantar fasciitis, right Heel spur, right Gio Richardson, BEN [address] [place] [address] Re[facility] [place] [facility] [address] [place] [address] Referral ID Status Reason Start Date Expiration Date V isits Requested Visits Authorized [id number] Authorized 02/10/2023 02/10/2024 1 1 Specialty Diagnoses / Procedures Referred By Contac t Referred To Contact Orthopedics Diagnoses Pain in both hands Numbness and tingling Procedures CONSULT TO ORTHOPAEDICS OFFICE/OUTPATIENT [facility] 60 MINUTES Kenzie Bowen APRN.CATERING ADMINISTRATIVE ASSISTANT [address] [place] [address] Referral ID Status Reason Start Date Expiration Date Visits Requested Visits Authorized [id number] Authorized PCP Requested Referral 02/02/2024 02/01/2025 1 1 Specialty Diagnoses / Procedures Referred By Contac t Referred To Contact Dermatology Diagnoses Skin lesion Procedures CONSULT TO DERMATOLOGY Kenzie Bowen, MAGDALENO.CATERING ADMINISTRATIVE ASSISTANT [address] [place] [address] Referral ID Status Reason Start Date Expiration Date Visits Requested Visits Authorized [id number] Ref Not Required PCP Requested Referral 02/02/2024 02/01/2025 1 1 Specialty Diagnoses / Procedures Referred By Contac t Referred To Contact [facility] Diagnoses Pain in both hands Numbness and tingling Procedures EMG(NEURO/NI) NERVE CONDUCTION STUDIES 9-10 STUDIES Kenzie Bowen APRN.CATERING ADMINISTRATIVE ASSISTANT [address] [place] [address] [facility] [address] [place] [address] Referral ID Status Reason Start Date Expiration Date Visits Requested Visits Authorized [id number] Authorized Auto-Generat ed Referral 02/02/2024 02/01/2025 1 1 Advance Directives No Advanced Directives Records FoundDocuments on File Type Date Recorded Patient Roll Dough Divider Expl anation Advance Directives and Livin g Will 09/25/2020 2:48 PM Documents on File Type Date Recorded Patient Roll Dough Divider Expl anation Advance Directives and Livin g Will 09/25/2020 2:48 PM Latest Code Status on File Code Status Date Activated Date Inactivated Comments Full Code 03/09/2023 12:35 PM 03/09/2023 3:38 PM Date Activated Date Inactivated Comments 03/09/2023 12:35 PM 03/09/2023 3:38 PM Advance Directive Response Recorded Date/ Time Do you have a Healthcare Power of Bench Mechanic? No November 07, 2024 2:54pm Summary Purpose Family History No Family History Records Found Relationship Condition Age at Onset Recorded Date/T logan mother Cardiac disease Unknown Chief Complaint and Reason for Visit Chief Complaint Admit Date chest pain November 07, 2024 2:35p m Additional Source Comments INFORMATION SOURCE (unrecogn ized section and content) DATE CREATED AUTHOR 09/29/2020 [facility] DATE CREATED AUTHOR AUTHOR'S ORGANIZ ATION 04/09/2023 [facility] DATE CREATED AUTHOR AUTHOR'S ORGANIZ ATION 10/21/2023 [facility] DATE CREATED AUTHOR AUTHOR'S ORGANIZ ATION 11/15/2024 [facility] DATE CREATED AUTHOR AUTHOR'S ORGANIZ ATION 11/16/2024 [facility] DATE CREATED AUTHOR AUTHOR'S ORGANIZ ATION 11/20/2024 [facility] DATE CREATED AUTHOR AUTHOR'S ORGANIZ ATION 12/08/2024 [facility] DATE CREATED AUTHOR AUTHOR'S ORGANIZ ATION 01/11/2025 [facility] DATE CREATED AUTHOR AUTHOR'S ORGANIZ ATION 02/08/2025 [facility] DATE CREATED AUTHOR AUTHOR'S ORGANIZ ATION 03/10/2025 [facility] Reason for Visit (unrecogniz ed section and content) Reason Comments Physical Therapy Specialty Diagnoses / Procedures Referred By Contac t Referred To Contact Rehabilitation Diagnoses Plantar fasciitis, right Heel spur, right Gio Richardson DPM [address] [place] [address] Rehab [place] [address] [place] [address] Referral ID Status Reason Start Date Expiration Date V isits Requested Visits Authorized [id number] Authorized 02/10/2023 02/10/2024 9 30 Status Reason Specialty Diagnoses / Procedures Referred By Contact Referred To Contact Authorized Rehabilitation Diagnoses Patellofemoral pain syndrome of right knee GalaGui gutierrezvibha Corrigan, CATERING ADMINISTRATIVE ASSISTANT [address] [place] [address] [place] [address] [facility] [place] [address] [place] [address] Reason Comments Anxiety Establish Care Reason Comments Well Woman Reason Comments Results Reason Comments Refill Request Reason Comments Orders Reason Onset Date Comments IUD Removal 01/29/2022 Specialty Diagnoses / Procedures Referred By Amita loredo Referred To Contact [facility] Diagnoses Encounter for IUD removal Encounter for insertion of intrauterine contraceptive device Procedures REMOVE INTRAUTERINE DEVICE REMOVE INTRAUTERINE DEVICE INSERT INTRAUTERINE DEVICE LEVONORGESTREL IU 52MG 5 YR Shine Neal MD [address] [place] [address] [facility] [address] [place] [address] Referral ID Status Reason Start Date Expiration Date Visits Requested Visits Authorized [id number] Authorized Auto-Generat ed Referral 01/22/2022 05/01/2022 2 2 Reason Comments Anxiety Medication concerns, anxiety Gap Closure (Health Maintenance) There a re no preventive care reminders to display for this patient. Reason Comments Chest Pain X 3 weeks, pt report s that anything she has to do where she has to have hands above head hurts. Reason Onset Date Comments Medication Refill 11/03/2022 Reason Onset Date Comments Medication Refill 12/29/2022 Reason Comments Foot Pain Right heel pain x ov er a month. Pain has increased. She has been walking on the side of her foot. She has tried tylenol, motrin and stretching. Reason Onset Date Comments Medication Refill 01/27/2023 Reason Comments Follow-up Follow up right heel pain. States the injection did not have any lasting relief. She has been doing the icing and stretching it has helped. Still having pinpoint pain on bottom of the right heel. Reason Comments Post-op PO heel spur excisio n right foot Reason Comments Post-op Status post heel spu r resection on the Right foot. Pain is 0/10 today. Suture / Staple Removal Suture removal t osmel. Reason Comments Post-op R foot plantar fasci otomy and heel spur excision - pt states that she is still a little sore but doing ok Reason Comments Acute Visit Need new Anxiety med Reason Comments Foot Pain Patient presents for right foot pain, duration 5 months. Patient states she's been having pain since surgery, feels like her foot goes to sleep a lot. Patient denies recent injuries Reason Onset Date Comments Refill Request 09/10/2023 Reason Comments Physical Reason Comments Results Labs Reason Comments Follow-up Patient presents for follow up four weeks right foot pain. Patient reports improvement with pain, has been wearing boot daily Reason Onset Date Comments Refill Request 10/06/2023 Reason Comments Follow-up Pt states that she g ot the new orthotics but did not like them at all - they made the foot hurt more Reason Onset Date Comments Refill Request 10/25/2023 Reason Onset Date Comments Refill Request 01/02/2024 Reason Onset Date Comments Medication Refill 01/02/2024 Reason Comments Acute Visit hand pain Reason Onset Date Comments EMG 02/13/2024 Specialty Diagnoses / Procedures Referred By Amita loredo Referred To Contact [facility] Diagnoses Pain in both hands Numbness and tingling Procedures EMG(NEURO/NI) NERVE CONDUCTION STUDIES 9-10 STUDIES Kenzie Bowen, MAGDALENO.CATERING ADMINISTRATIVE ASSISTANT [address] [place] [address] [facility] [place] [address] [place] [address] Referral ID Status Reason Start Date Expiration Date V isits Requested Visits Authorized [id number] Closed Auto-Generate d Referral 02/02/2024 02/01/2025 1 1 Reason Comments Results EMG Reason Comments New Pain Specialty Diagnoses / Procedures Referred By Amita loredo Referred To Contact Orthopedics Diagnoses Pain in both hands Numbness and tingling Procedures CONSULT TO ORTHOPAEDICS OFFICE/OUTPATIENT NEW HIGH MDM 60 MINUTES Kenzie Bowen, MAGDALENO.CATERING ADMINISTRATIVE ASSISTANT [address] [place] [address] Referral ID Status Reason Start Date Expiration Date V isits Requested Visits Authorized [id number] Closed PCP Requested Referral 02/02/2024 02/01/2025 1 1 Reason Comments Appointment Reason Comments Acute Visit Ear fullness, itchin g, wrist pain, and tailbone pain Reason Onset Date Comments Results 07/27/2024 Reason Comments Med Change Request Reason Onset Date Comments Refill Request 10/08/2024 Reason Comments ED Follow-up [facility]. Reason Comments ER F/U Er follow up Reason Comments Headache Pt was seen twice ye day for CP and headache. Had CT r/o PE which was negative. Had visual field exam at ophthalmology today which showed right sided vision loss in both eyes and had optic nerve swelling in both eyes. Currently had headache radiates into neck and into back/shoulders. Reason Comments Visual Field Loss Evaluation Both Eyes Reason Comments Loss of Vision Pt states she has bowser d vision loss in the R field of vision for both eyes since Tuesday. Pt was seen in this ED and had an MRI. Left AMA. Pt saw a specialist this morning and was sent to the [facility] ED for a repeat MRI. States she waited for 5 hours and was not seen, so she came here and is requesting a repeat MRI. Symptoms have not changed since onset. Reason Comments Visual Field Defect Evaluation Reason Onset Date Comments Refill Request 11/19/2024 Reason Comments Imaging/Records Reason Comments Event Zio patch Reason Comments New Patient Evaluation Reason Onset Date Comments Refill Request 01/01/2025 Care Teams (unrecognized sec tion and content) Piping Designer Relationship Specialty Start Date End Date Bri Sánchez MD [address] [place] [id number] PCP - General Internal Medicine 04/13/21 Piping Designer Relationship Specialty Start Date End Date Munir Allison MD [address] [place], [place] [id number] PCP - General Family Practice 05/21/21 Piping Designer Relationship Specialty Start Date End Date Munir Allison MD [address] [place], [place] [id number] PCP - General Family Practice 05/21/21 Piping Designer Relationship Specialty Start Date End Date Munir Allison MD [address] [place] [address] PCP - General Family Practice 05/21/21 Piping Designer Relationship Specialty Start Date End Date Munir Allison MD [address] [place] [address] PCP - General Family Medicine 05/21/21 Piping Designer Relationship Specialty Start Date End Date Munir Allison MD [address] [place] [address] PCP - General Family Medicine 05/21/21 Piping Designer Relationship Specialty Start Date End Date Bri Sánchez MD [address] [place], [place] [id number] PCP - General Internal Medicine 04/13/21 Bri Sánchez MD [address] [place], [place] [id number] PCP - AGNES Attributed Provider - [employer] 05/02/19 05/01/50 Piping Designer Relationship Specialty Start Date End Date Bri Sánchez MD [address] [place], [place] [id number] PCP - General Internal Medicine 04/13/21 Bri Sánchez MD [address] [place] [address] PCP - AGNES Attributed Provider - [employer] 05/02/19 05/01/50 Piping Designer Relationship Specialty Start Date End Date Bri Sánchez MD [facility] [address] [address] PCP - General Internal Medicine 04/13/21 Bri Sánchez MD [address] [place] [address] PCP - AGNES Attributed Provider - [employer] 05/02/19 05/01/50 Piping Designer Relationship Specialty Start Date End Date Bri Sánchez MD [address] [place] [address] PCP - General Internal Medicine 04/13/21 Bri Sánchez MD [address] [place] [address] PCP - AGNES Attributed Provider - [employer] 05/02/19 05/01/50 Piping Designer Relationship Specialty Start Date End Date Bri Sánchez MD [facility] [place] [address] PCP - General Internal Medicine 04/13/21 Bri Sánchez MD [address] [place] [address] PCP - AGNES Attributed Provider - [employer] 05/02/19 05/01/50 Piping Designer Relationship Specialty Start Date End Date Bri Sánchez MD [address] [place] [address] PCP - General Internal Medicine 04/13/21 Bri Sánchez MD [address] [place] [address] PCP - AGNES Attributed Provider - [employer] 05/02/19 05/01/50 Piping Designer Relationship Specialty Start Date End Date Bri Sánchez MD [address] [place] [address] PCP - General Internal Medicine 04/13/21 Bri Sánchez MD [address] [place] [id number] PCP - AGNES Attributed Provider - [employer] 05/02/19 05/01/50 Piping Designer Relationship Specialty Start Date End Date Bri Sánchez MD [address] [place] [address] PCP - General Internal Medicine 04/13/21 Bir Sánchez MD [address] [place] [id number] PCP - AGNES Attributed Provider - [employer] 05/02/19 05/01/50 Piping Designer Relationship Specialty Start Date End Date Bri Sánchez MD [address] [place] [address] PCP - General Internal Medicine 04/13/21 Bri Sánchez MD [address] [place] [address] PCP - AGNES Attributed Provider - [employer] 05/02/19 05/01/50 Piping Designer Relationship Specialty Start Date End Date Bri Sánchez MD [address] [place] [address] PCP - General Internal Medicine 04/13/21 Bri Sánchez MD [address] [place] [id number] PCP - AGNES Attributed Provider - [employer] 05/02/19 05/01/50 Piping Designer Relationship Specialty Start Date End Date Bri Sánchze MD [address] [place] [id number] PCP - General Internal Medicine 04/13/21 Bri Sánchez MD [address] [place] [id number] PCP - AGNES Attributed Provider - [employer] 05/02/19 05/01/50 Piping Designer Relationship Specialty Start Date End Date Bri Sánchez MD [facility] [place] [id number] PCP - General Internal Medicine 04/13/21 Bri Sánchez MD [facility] [place] [id number] PCP - AGNES Attributed Provider - [employer] 05/02/19 05/01/50 Piping Designer Relationship Specialty Start Date End Date Bri Sánchez MD [address] [place], [place] [phone] PCP - General Internal Medicine 04/13/21 Bri Sánchez MD [address] [place], [place] [phone] PCP - AGNES Attributed Provider - [employer] 05/02/19 05/01/50 Piping Designer Relationship Specialty Start Date End Date Munir Allison MD [address] [place] [address] PCP - General Family Medicine 05/21/21 Piping Designer Relationship Specialty Start Date End Date Bri Sánchez MD [address] [place] [address] PCP - General Internal Medicine 04/13/21 Piping Designer Relationship Specialty Start Date End Date Munir Allison MD [address] [place] [address] PCP - General Family Medicine 05/21/21 Piping Designer Relationship Specialty Start Date End Date Bri Sánchez MD [facility] [place] [id number] PCP - General Internal Medicine 04/13/21 Piping Designer Relationship Specialty Start Date End Date Munir Allison MD [address] [place] [address] PCP - General Family Medicine 05/21/21 Piping Designer Relationship Specialty Start Date End Date Munir Allison MD [address] [place] [address] PCP - General Family Medicine 05/21/21 Piping Designer Relationship Specialty Start Date End Date Bri Sánchez MD [address] [place], [place] [id number] PCP - General Internal Medicine 04/13/21 Piping Designer Relationship Specialty Start Date End Date Munir Allison MD [address] [place] [address] PCP - General Family Medicine 05/21/21 Piping Designer Relationship Specialty Start Date End Date Munir Allison MD [address] [place] [address] PCP - General Family Medicine 05/21/21 Piping Designer Relationship Specialty Start Date End Date Munir Allison MD [address] [place] [address] PCP - General Family Medicine 05/21/21 Piping Designer Relationship Specialty Start Date End Date Munir Allison MD [address] [place] [address] PCP - General Family Medicine 05/21/21 Piping Designer Relationship Specialty Start Date End Date Munir Allison MD [address] [place] [address] PCP - General Family Medicine 05/21/21 Piping Designer Relationship Specialty Start Date End Date Munir Allison MD [address] [place] [address] PCP - General Family Medicine 05/21/21 Kenzie Bowen APRN.CATERING ADMINISTRATIVE ASSISTANT [address] [place] [address] Hand Icer Family Medicine 04/08/24 Jose F Garza APRN.CATERING ADMINISTRATIVE ASSISTANT [address] [place] [address] Hand Icer Family Medicine 04/17/24 Piping Designer Relationship Specialty Start Date End Date Munir Allison MD [address] [place] [address] PCP - General Family Medicine 05/21/21 Kenzie Bowen APRN.CATERING ADMINISTRATIVE ASSISTANT [address] [place] [address] Hand Icer Family Medicine 04/08/24 Jose F Garza APRN.CATERING ADMINISTRATIVE ASSISTANT [address] [place] [address] Hand Icer Family Medicine 04/17/24 Piping Designer Relationship Specialty Start Date End Date Munir Allison MD [address] [place] [address] PCP - General Family Medicine 05/21/21 Kenzie Bowen APRN.CATERING ADMINISTRATIVE ASSISTANT [address] [place] [address] Hand Icer Family Medicine 04/08/24 Jose F Garza APRN.CATERING ADMINISTRATIVE ASSISTANT [address] [place] [address] [facility] 04/17/24 Piping Designer Relationship Specialty Start Date End Date Munir Allison MD [address] [place] [address] PCP - General Family Medicine 05/21/21 Kenzie Bowen APRN.CATERING ADMINISTRATIVE ASSISTANT [address] [place] [address] Hand Icer Family Medicine 04/08/24 Jose F Garza APRN.CATERING ADMINISTRATIVE ASSISTANT [address] [place] [address] [facility] Piping Designer Relationship Specialty Start Date End Date Munir Allison MD [address] [place] [address] PCP - General Family Medicine 05/21/21 Kenzie Bowen APRN.CATERING ADMINISTRATIVE ASSISTANT [address] [place] [address] Hand Icer Family Medicine 04/08/24 Jose F Garza APRN.CATERING ADMINISTRATIVE ASSISTANT [address] [place] [address] Hand Icer Family Medicine 04/17/24 Piping Designer Relationship Specialty Start Date End Date Munir Allison MD [address] [place] [address] PCP - General Family Medicine 05/21/21 Kenzie Bowen APRN.CATERING ADMINISTRATIVE ASSISTANT [address] [place] [address] Hand Icer Family Medicine 04/08/24 Jose F Garza APRN.CATERING ADMINISTRATIVE ASSISTANT [address] [place] [address] Hand Icer Family Medicine 04/17/24 Piping Designer Relationship Specialty Start Date End Date Munir Allison MD [address] [place] [address] PCP - General Family Medicine 05/21/21 Jose F Garza APRN.CATERING ADMINISTRATIVE ASSISTANT [address] [place] [address] Hand Icer Family Medicine 04/17/24 Piping Designer Relationship Specialty Start Date End Date Munir Allison MD [address] [place] [address] PCP - General Family Medicine 05/21/21 Jose F Garza APRN.CATERING ADMINISTRATIVE ASSISTANT [address] [place] [address] Hand Icer Family Medicine 04/17/24 Team Status: Active Member Role/Relationship Status Dates Munir LICONA MD Primary Care Provider Active Team Status: Inactive Member Role/Relationship Status Dates Dr. Rj Jo DO Referring Provider Active Start: November 07, 2024 End: November 07, 2024 Dr. Rj Jo DO Emergency Provider Active Start: November 07, 2024 End: November 07, 2024 Munir LICONA MD Primary Care Provider Active Start: November 07, 2024 End: November 07, 2024 Piping Designer Relationship Specialty Start Date End Date Munir Allison MD [address] [place] [address] PCP - General Family Medicine 05/21/21 Jose F Garza APRN.CATERING ADMINISTRATIVE ASSISTANT [address] [place] [address] Hand Icer Family Medicine 04/17/24 Piping Designer Relationship Specialty Start Date End Date Cecile Luis APRN-CITY LIBRARY DIRECTOR PCP - General Family Medicine 11/08/24 Piping Designer Relationship Specialty Start Date End Date Munir Allison MD [address] [place] [address] PCP - General Family Medicine 05/21/21 Jose F Garza APRN.CATERING ADMINISTRATIVE ASSISTANT [address] [place] [address] Hand Icer Family Medicine 04/17/24 Piping Designer Relationship Specialty Start Date End Date Cecile Luis APRN.CATERING ADMINISTRATIVE ASSISTANT [address] [place] [address] PCP - General Family Medicine 11/09/24 Jose F Garza APRN.CATERING ADMINISTRATIVE ASSISTANT [address] [place] [address] Hand Icer Family Medicine 04/17/24 Piping Designer Relationship Specialty Start Date End Date Cecile Luis, HUNTER TRAPPER-CITY LIBRARY DIRECTOR PCP - General Family Medicine 11/08/24 Piping Designer Relationship Specialty Start Date End Date Cecile Luis HUNTER TRAPPER.CATERING ADMINISTRATIVE ASSISTANT [address] [place] [address] PCP - General Family Medicine 11/09/24 Jose F Garza, HUNTER TRAPPER.CATERING ADMINISTRATIVE ASSISTANT [address] [place] [address] Hand Icer Family Medicine 04/17/24 Piping Designer Relationship Specialty Start Date End Date Cecile Luis HUNTER TRAPPER.CATERING ADMINISTRATIVE ASSISTANT [address] [place] [address] PCP - General Family Medicine 11/09/24 Jose F Garza, HUNTER TRAPPER.CATERING ADMINISTRATIVE ASSISTANT [address] [place] [address] Hand Icer [facility] 04/17/24 Piping Designer Relationship Specialty Start Date End Date Cecile Luis HUNTER TRAPPER.CATERING ADMINISTRATIVE ASSISTANT [address] [place] [address] PCP - General Family Medicine 11/09/24 Jose F Garza, HUNTER TRAPPER.CATERING ADMINISTRATIVE ASSISTANT [address] [place] [address] Hand Icer [facility] 04/17/24 Piping Designer Relationship Specialty Start Date End Date Cecile Luis HUNTER TRAPPER.CATERING ADMINISTRATIVE ASSISTANT [address] [place] [address] PCP - General Family Medicine 11/09/24 Jose F Garza, HUNTER TRAPPER.CATERING ADMINISTRATIVE ASSISTANT [address] [place] [address] [facility] Piping Designer Relationship Specialty Start Date End Date Cecile Luis, HUNTER TRAPPER.CATERING ADMINISTRATIVE ASSISTANT [address] [place] [address] PCP - General Family Medicine 11/09/24 Jose F Garza, HUNTER TRAPPER.CATERING ADMINISTRATIVE ASSISTANT [address] [place] [address] [facility] Piping Designer Relationship Specialty Start Date End Date Cecile Luis, HUNTER TRAPPER.CATERING ADMINISTRATIVE ASSISTANT [address] [place] [address] PCP - General Family Medicine 11/09/24 Jose F Garza, HUNTER TRAPPER.CATERING ADMINISTRATIVE ASSISTANT [address] [place] [address] [facility] 04/17/24 Piping Designer Relationship Specialty Start Date End Date Cecile Luis, HUNTER TRAPPER.CATERING ADMINISTRATIVE ASSISTANT [address] [place] [address] PCP - General Family Medicine 11/09/24 Jose F Garza, HUNTER TRAPPER.CATERING ADMINISTRATIVE ASSISTANT [address] [place] [address] [facility] Piping Designer Relationship Specialty Start Date End Date Cecile Luis, HUNTER TRAPPER.CATERING ADMINISTRATIVE ASSISTANT [address] [place] [address] PCP - General Family Medicine 11/09/24 Jose F Garza APRN.CATERING ADMINISTRATIVE ASSISTANT [address] [place] [address] Hand Icer Family Medicine 04/17/24 Piping Designer Relationship Specialty Start Date End Date Cecile Luis APRN.CATERING ADMINISTRATIVE ASSISTANT [address] [place] [address] PCP - General Family Medicine 11/09/24 Jose F Garza APRN.CATERING ADMINISTRATIVE ASSISTANT [address] [place] [address] Hand Icer [facility] Medicine 04/17/24 Adriane Gonzales MD [address] [place] [address] Primary Staff Physician Cardiology 12/05/24 Piping Designer Relationship Specialty Start Date End Date Cecile Luis APRN.CATERING ADMINISTRATIVE ASSISTANT [address] [place] [address] PCP - General Family Medicine 11/09/24 Jose F Garza APRN.CATERING ADMINISTRATIVE ASSISTANT [address] [place] [address] Hand Icer [facility] Medicine 04/17/24 Adriane Gonzales MD [address] [place] [address] Primary Staff Physician Cardiology 12/05/24 Piping Designer Relationship Specialty Start Date End Date Cecile Luis APRN.CATERING ADMINISTRATIVE ASSISTANT [address] [place] [address] PCP - General Family Medicine 11/09/24 Jose F Garza APRN.CATERING ADMINISTRATIVE ASSISTANT [address] [place] [address] Hand Icer Family [facility] 04/17/24 Adriane Gonzales MD [address] [place] [address] Primary Staff Physician Cardiology 12/05/24 Piping Designer Relationship Specialty Start Date End Date Cecile Luis HUNTER TRAPPER.CATERING ADMINISTRATIVE ASSISTANT [address] [place] [address] PCP - General Family Medicine 11/09/24 Jose F Garza HUNTER TRAPPER.CATERING ADMINISTRATIVE ASSISTANT [address] [place] [address] Hand Icer [facility] 04/17/24 Adriane Gonzales MD [address] [place] [address] Primary Staff Physician Cardiology 12/05/24 Piping Designer Relationship Specialty Start Date End Date Cecile Luis HUNTER TRAPPER.CATERING ADMINISTRATIVE ASSISTANT [address] [place] [address] PCP - General Family Medicine 11/09/24 Jose F Garza HUNTER TRAPPER.CATERING ADMINISTRATIVE ASSISTANT [address] [place] [address] Hand Icer Family Medicine 04/17/24 Adriane Gonzales MD [address] [place] [address] Primary Staff Physician Cardiology 12/05/24 Piping Designer Relationship Specialty Start Date End Date Cecile Luis HUNTER TRAPPER.CATERING ADMINISTRATIVE ASSISTANT [address] [place] [address] PCP - General Family Medicine 11/09/24 Jose F Garza APRN.CATERING ADMINISTRATIVE ASSISTANT [address] [place] [address] Hand Icer Family Medicine 04/17/24 Adriane Gonzales MD [address] [place] [address] Primary Staff Physician Cardiology 12/05/24 Piping Designer Relationship Specialty Start Date End Date Munir Allison MD [address] [place] [address] PCP - General Family Medicine 05/21/21 11/08/24 Cecile Luis APRN.CATERING ADMINISTRATIVE ASSISTANT [address] [place] [address] PCP - General Family Medicine 11/09/24 Jose F Garza APRN.CATERING ADMINISTRATIVE ASSISTANT [address] [place] [address] Hand Icer Family Medicine 04/17/24 Adriane Gonzales MD [address] [place] [address] Primary Staff Physician Cardiology 12/05/24 Piping Designer Relationship Specialty Start Date End Date Cecile Luis APRN.CATERING ADMINISTRATIVE ASSISTANT [address] [place] [address] PCP - General Family Medicine 11/09/24 Jose F Garza APRN.CATERING ADMINISTRATIVE ASSISTANT [address] [place] [address] Hand Icer Family Medicine 04/17/24 01/03/25 Adriane Gonzales MD [address] [facility] [place] [address] Primary Staff Physician Cardiology 12/05/24 Piping Designer Relationship Specialty Start Date End Date Cecile Luis HUNTER TRAPPER.CATERING ADMINISTRATIVE ASSISTANT [address] [place] [address] PCP - General Family Medicine 11/09/24 Jose F Garza, HUNTER TRAPPER.CATERING ADMINISTRATIVE ASSISTANT [address] [place] [address] Hand Icer [address] [facility] 04/17/24 01/03/25 Adriane Gonzales MD [address] [place] [address] Primary Staff Physician Cardiology 12/05/24 Piping Designer Relationship Specialty Start Date End Date Cecile Luis HUNTER TRAPPER.CATERING ADMINISTRATIVE ASSISTANT [address] [place] [address] PCP - General Family Medicine 11/09/24 Adriane Gonzales MD [address] [place] [address] Primary Staff Physician Cardiology 12/05/24 Piping Designer Relationship Specialty Start Date End Date Cecile Luis HUNTER TRAPPER.CATERING ADMINISTRATIVE ASSISTANT [address] [place] [address] PCP - General Family Medicine 11/09/24 Adriane Gonzales MD [address] [place] [address] Primary Staff Physician Cardiology 12/05/24 Source Comments (unrecognize d section and content) In the event this informatio n is protected by the Federal Confidentiality of Alcohol and Drug Abuse Patient Records regulations: The Federal rules restrict any use of the information to criminally investigate or prosecute any alcohol or drug abuse patient.[facility] DaytonIn the event this information is protected by the Federal Confidentiality of Alcohol and Drug Abuse Patient Records regulations: The Federal rules restrict any use of the information to criminally investigate or prosecute any alcohol or drug abuse patient.[facility] DaytonIn the event this information is protected by the Federal Confidentiality of Alcohol and Drug Abuse Patient Records regulations: The Federal rules restrict any use of the information to criminally investigate or prosecute any alcohol or drug abuse patient.[facility] DaytonIn the event this information is protected by the Federal Confidentiality of Alcohol and Drug Abuse Patient Records regulations: The Federal rules restrict any use of the information to criminally investigate or prosecute any alcohol or drug abuse patient.[facility] DaytonIn the event this information is protected by the Federal Confidentiality of Alcohol and Drug Abuse Patient Records regulations: The Federal rules restrict any use of the information to criminally investigate or prosecute any alcohol or drug abuse patient.[facility] DaytonIn the event this information is protected by the Federal Confidentiality of Alcohol and Drug Abuse Patient Records regulations: The Federal rules restrict any use of the information to criminally investigate or prosecute any alcohol or drug abuse patient.[facility] DaytonIn the event this information is protected by the Federal Confidentiality of Alcohol and Drug Abuse Patient Records regulations: The Federal rules restrict any use of the information to criminally investigate or prosecute any alcohol or drug abuse patient.[facility] DaytonIn the event this information is protected by the Federal Confidentiality of Alcohol and Drug Abuse Patient Records regulations: The Federal rules restrict any use of the information to criminally investigate or prosecute any alcohol or drug abuse patient.[facility] DaytonIn the event this information is protected by the Federal Confidentiality of Alcohol and Drug Abuse Patient Records regulations: The Federal rules restrict any use of the information to criminally investigate or prosecute any alcohol or drug abuse patient.[facility] DaytonIn the event this information is protected by the Federal Confidentiality of Alcohol and Drug Abuse Patient Records regulations: The Federal rules restrict any use of the information to criminally investigate or prosecute any alcohol or drug abuse patient.[facility] DaytonIn the event this information is protected by the Federal Confidentiality of Alcohol and Drug Abuse Patient Records regulations: The Federal rules restrict any use of the information to criminally investigate or prosecute any alcohol or drug abuse patient.[facility] DaytonIn the event this information is protected by the Federal Confidentiality of Alcohol and Drug Abuse Patient Records regulations: The Federal rules restrict any use of the information to criminally investigate or prosecute any alcohol or drug abuse patient.[facility] DaytonIn the event this information is protected by the Federal Confidentiality of Alcohol and Drug Abuse Patient Records regulations: The Federal rules restrict any use of the information to criminally investigate or prosecute any alcohol or drug abuse patient.[facility] DaytonIn the event this information is protected by the Federal Confidentiality of Alcohol and Drug Abuse Patient Records regulations: The Federal rules restrict any use of the information to criminally investigate or prosecute any alcohol or drug abuse patient.[facility] DaytonIn the event this information is protected by the Federal Confidentiality of Alcohol and Drug Abuse Patient Records regulations: The Federal rules restrict any use of the information to criminally investigate or prosecute any alcohol or drug abuse patient.[facility] DaytonIn the event this information is protected by the Federal Confidentiality of Alcohol and Drug Abuse Patient Records regulations: The Federal rules restrict any use of the information to criminally investigate or prosecute any alcohol or drug abuse patient.[facility] DaytonIn the event this information is protected by the Federal Confidentiality of Alcohol and Drug Abuse Patient Records regulations: The Federal rules restrict any use of the information to criminally investigate or prosecute any alcohol or drug abuse patient.[facility] DaytonIn the event this information is protected by the Federal Confidentiality of Alcohol and Drug Abuse Patient Records regulations: The Federal rules restrict any use of the information to criminally investigate or prosecute any alcohol or drug abuse patient.[facility] DaytonIn the event this information is protected by the Federal Confidentiality of Alcohol and Drug Abuse Patient Records regulations: The Federal rules restrict any use of the information to criminally investigate or prosecute any alcohol or drug abuse patient.[facility] DaytonIn the event this information is protected by the Federal Confidentiality of Alcohol and Drug Abuse Patient Records regulations: The Federal rules restrict any use of the information to criminally investigate or prosecute any alcohol or drug abuse patient.[facility] DaytonIn the event this information is protected by the Federal Confidentiality of Alcohol and Drug Abuse Patient Records regulations: The Federal rules restrict any use of the information to criminally investigate or prosecute any alcohol or drug abuse patient.[facility] DaytonIn the event this information is protected by the Federal Confidentiality of Alcohol and Drug Abuse Patient Records regulations: The Federal rules restrict any use of the information to criminally investigate or prosecute any alcohol or drug abuse patient.[facility] DaytonIn the event this information is protected by the Federal Confidentiality of Alcohol and Drug Abuse Patient Records regulations: The Federal rules restrict any use of the information to criminally investigate or prosecute any alcohol or drug abuse patient.[facility] DaytonIn the event this information is protected by the Federal Confidentiality of Alcohol and Drug Abuse Patient Records regulations: The Federal rules restrict any use of the information to criminally investigate or prosecute any alcohol or drug abuse patient.[facility] DaytonIn the event this information is protected by the Federal Confidentiality of Alcohol and Drug Abuse Patient Records regulations: The Federal rules restrict any use of the information to criminally investigate or prosecute any alcohol or drug abuse patient.[facility] DaytonIn the event this information is protected by the Federal Confidentiality of Alcohol and Drug Abuse Patient Records regulations: The Federal rules restrict any use of the information to criminally investigate or prosecute any alcohol or drug abuse patient.[facility] DaytonIn the event this information is protected by the Federal Confidentiality of Alcohol and Drug Abuse Patient Records regulations: The Federal rules restrict any use of the information to criminally investigate or prosecute any alcohol or drug abuse patient.[facility] DaytonIn the event this information is protected by the Federal Confidentiality of Alcohol and Drug Abuse Patient Records regulations: The Federal rules restrict any use of the information to criminally investigate or prosecute any alcohol or drug abuse patient.[facility] DaytonIn the event this information is protected by the Federal Confidentiality of Alcohol and Drug Abuse Patient Records regulations: The Federal rules restrict any use of the information to criminally investigate or prosecute any alcohol or drug abuse patient.[facility] DaytonIn the event this information is protected by the Federal Confidentiality of Alcohol and Drug Abuse Patient Records regulations: The Federal rules restrict any use of the information to criminally investigate or prosecute any alcohol or drug abuse patient.[facility] DaytonIn the event this information is protected by the Federal Confidentiality of Alcohol and Drug Abuse Patient Records regulations: The Federal rules restrict any use of the information to criminally investigate or prosecute any alcohol or drug abuse patient.[facility] DaytonIn the event this information is protected by the Federal Confidentiality of Alcohol and Drug Abuse Patient Records regulations: The Federal rules restrict any use of the information to criminally investigate or prosecute any alcohol or drug abuse patient.[facility] DaytonIn the event this information is protected by the Federal Confidentiality of Alcohol and Drug Abuse Patient Records regulations: The Federal rules restrict any use of the information to criminally investigate or prosecute any alcohol or drug abuse patient.[facility] DaytonIn the event this information is protected by the Federal Confidentiality of Alcohol and Drug Abuse Patient Records regulations: The Federal rules restrict any use of the information to criminally investigate or prosecute any alcohol or drug abuse patient.[facility] DaytonIn the event this information is protected by the Federal Confidentiality of Alcohol and Drug Abuse Patient Records regulations: The Federal rules restrict any use of the information to criminally investigate or prosecute any alcohol or drug abuse patient.[facility] DaytonIn the event this information is protected by the Federal Confidentiality of Alcohol and Drug Abuse Patient Records regulations: The Federal rules restrict any use of the information to criminally investigate or prosecute any alcohol or drug abuse patient.[facility] DaytonIn the event this information is protected by the Federal Confidentiality of Alcohol and Drug Abuse Patient Records regulations: The Federal rules restrict any use of the information to criminally investigate or prosecute any alcohol or drug abuse patient.[facility] DaytonIn the event this information is protected by the Federal Confidentiality of Alcohol and Drug Abuse Patient Records regulations: The Federal rules restrict any use of the information to criminally investigate or prosecute any alcohol or drug abuse patient.[facility] DaytonIn the event this information is protected by the Federal Confidentiality of Alcohol and Drug Abuse Patient Records regulations: The Federal rules restrict any use of the information to criminally investigate or prosecute any alcohol or drug abuse patient.[facility] DaytonIn the event this information is protected by the Federal Confidentiality of Alcohol and Drug Abuse Patient Records regulations: The Federal rules restrict any use of the information to criminally investigate or prosecute any alcohol or drug abuse patient.[facility] DaytonIn the event this information is protected by the Federal Confidentiality of Alcohol and Drug Abuse Patient Records regulations: The Federal rules restrict any use of the information to criminally investigate or prosecute any alcohol or drug abuse patient.[facility] DaytonIn the event this information is protected by the Federal Confidentiality of Alcohol and Drug Abuse Patient Records regulations: The Federal rules restrict any use of the information to criminally investigate or prosecute any alcohol or drug abuse patient.[facility] DaytonIn the event this information is protected by the Federal Confidentiality of Alcohol and Drug Abuse Patient Records regulations: The Federal rules restrict any use of the information to criminally investigate or prosecute any alcohol or drug abuse patient.[facility] DaytonIn the event this information is protected by the Federal Confidentiality of Alcohol and Drug Abuse Patient Records regulations: The Federal rules restrict any use of the information to criminally investigate or prosecute any alcohol or drug abuse patient.[facility]In the event this information is protected by the Federal Confidentiality of Alcohol and Drug Abuse Patient Records regulations: The Federal rules restrict any use of the information to criminally investigate or prosecute any alcohol or drug abuse patient.[facility] DaytonIn the event this information is protected by the Federal Confidentiality of Alcohol and Drug Abuse Patient Records regulations: The Federal rules restrict any use of the information to criminally investigate or prosecute any alcohol or drug abuse patient.[facility] DaytonIn the event this information is protected by the Federal Confidentiality of Alcohol and Drug Abuse Patient Records regulations: The Federal rules restrict any use of the information to criminally investigate or prosecute any alcohol or drug abuse patient.[facility] DaytonIn the event this information is protected by the Federal Confidentiality of Alcohol and Drug Abuse Patient Records regulations: The Federal rules restrict any use of the information to criminally investigate or prosecute any alcohol or drug abuse patient.[facility] DaytonIn the event this information is protected by the Federal Confidentiality of Alcohol and Drug Abuse Patient Records regulations: The Federal rules restrict any use of the information to criminally investigate or prosecute any alcohol or drug abuse patient.[facility] DaytonIn the event this information is protected by the Federal Confidentiality of Alcohol and Drug Abuse Patient Records regulations: The Federal rules restrict any use of the information to criminally investigate or prosecute any alcohol or drug abuse patient.[facility] DaytonIn the event this information is protected by the Federal Confidentiality of Alcohol and Drug Abuse Patient Records regulations: The Federal rules restrict any use of the information to criminally investigate or prosecute any alcohol or drug abuse patient.[facility] DaytonIn the event this information is protected by the Federal Confidentiality of Alcohol and Drug Abuse Patient Records regulations: The Federal rules restrict any use of the information to criminally investigate or prosecute any alcohol or drug abuse patient.[facility] Goals (unrecognized section and content) Goals may be documented in a n alternate section Scheduled Active and Recently Administ ered Medications (unrecognized section and content) Medication Order 11/06/2024 11/07/2024 11/08/2024 gadoterate meglumine (Dotarem) 0.5 mmol/mL contrast injection 20 mL (COMPLETED) 20 mL, intravenous, Once in imaging, Starting on Jennifer 11/08/24 at 2016, For 1 dose, Administer undiluted as rapid I.V. bolus injection 2015 (Given - Provid er: Yadira Jarquin) FOR RECORDS PERTAINING TO PATIENTS WHO ARE OR HAVE BEEN ENROLLED IN A CHEMICAL DEPENDENCY/SUBSTANCEABUSE PROGRAM, SOME INFORMATION MAY BE OMITTED. This clinical summary was aggregated from multiple sources. Caution should be exercised in using it in the provision of clinical care. This summary normalizes information from multiple sources, and as a consequence, information in this document may materially change the coding, format and clinical context of patient data. In addition, data may be omitted in some cases. CLINICAL DECISIONS SHOULD BE BASED ON THE PRIMARY CLINICAL RECORDS. [email or web address] [facility]. provides no warranty or guarantee of the accuracy or completeness of information in this document.
[2025-04-21 12:56] LABS: Anion Gap 14 (5-15); BUN 6 mg/dL (4-19); BUN/Creat Ratio 8.4 RATIO (10-20); Calcium,Total 9.1 mg/dL (7.6-11.0); Carbon Dioxide 24.2 mmol/L (21.0-32.0); Chloride 101 mmol/L (98-108); Estimated Creatinine Clearance 112.57 ml/min (50-250); Glucose 86 mg/dL (70-99); Magnesium 2.0 mg/dL (1.5-2.2); Potassium 3.8 mmol/L (3.3-5.1); Pro- Brain NATRIURETIC PEPTIDE 319 pg/mL (<=450); Troponin T High Sensitivity < 6 ng/L (<=14)
[2025-04-21 13:02] LABS: Internal QC Validated? YES +Cl - CLEAR BKGD; Pregnancy, Serum, hCG Quali. NEGATIVE Negative
--- NOTE | 2025-04-21 13:43 | EKG12_ITS ---
Test Reason : REPEAT-AFTER 2ND DOSE CARDIZEM Blood Pressure : */* mmHG Vent. Rate : 76 BPM Atrial Rate : 76 BPM P-R Int : 176 ms QRS Dur : 74 ms QT Int : 400 ms P-R-T Axes : 33 1 9 degrees QTcB Int : 450 ms Normal sinus rhythm Minimal voltage criteria for LVH, may be normal variant ( R in aVL ) Borderline ECG Confirmed by Mitul Carpenter ([id number]), videotape editor ZE MANRIQUEZ ([id number]) on 04/23/2025 11:33:11 AM Also confirmed by Mitul Carpenter ([id number]), videotape editor ZE MANRIQUEZ ([id number]) on 04/24/2025 10:57:33 AM Referred By: Confirmed By: Mitul Carpenter
--- NOTE | 2025-04-21 14:44 | EKG12_ITS ---
Test Reason : PALPS Blood Pressure : */* mmHG Vent. Rate : 44 BPM Atrial Rate : 44 BPM P-R Int : 160 ms QRS Dur : 76 ms QT Int : 468 ms P-R-T Axes : 48 13 24 degrees QTcB Int : 400 ms Marked sinus bradycardia Abnormal ECG Confirmed by Mitul Carpenter (), production editor ZE MANRIQUEZ ([id number]) on 04/23/2025 11:29:59 AM Also confirmed by Mitul Carpenter ([id number]), production editor ZE MANRIQUEZ ([id number]) on 04/24/2025 10:54:58 AM Referred By: MICHAELA/MELIZA Confirmed By: Mitul Carpenter
[2025-04-21 15:14] LABS: Troponin T High Sens 2 HR < 6 ng/L (<=14)
--- NOTE | 2025-04-21 17:55 | CM.ED ---
Social Work Date of referral: 04/21/25 Reason for referral: Resources for prescription medication for Eliquis being requested. Referred by: Social Work Identification. Senior Financial Analyst had checked in with ED doctor after having returned from an acute floor and had been told consult is no longer needed as a nurse reviewed and provided patient with the Good RX information for Eliquis. No additional needs/concerns noted at this time. Camilla Cross, BINDERY MACHINE TENDER, TRUCKLOAD CHECKER
[2025-04-21] MEDS: APIXABAN 5 MG TABLET PO (18:07)
== END 2025-04-21 18:13 | disposition home or self-care (01) ==
PROVIDERS: Emergency Provider Surgery; PCP Clinical Nurse Specialist Adult Health; Visit Provider Surgery
DX: R00.2 Palpitations (principal); I48.91 Unspecified atrial fibrillation; Z86.73 Personal history of transient ischemic attack (TIA), and cerebral infarction without residual deficits; Z79.01 Long term (current) use of anticoagulants; Z79.899 Other long term (current) drug therapy; K21.9 Gastro-esophageal reflux disease without esophagitis; J45.909 Unspecified asthma, uncomplicated; R06.02 Shortness of breath
CPT/HCPCS: 71275; 80048; 83735; 83880; 84443; 84484; 84703; 85025; 85610; 85730; 93005; 96361; 96374; 96376; 99284; Q9967; A4216